=== PATIENT | female | born 1965 | race Caucasian/White ===

== ENCOUNTER 2019-06-28 15:43 | Inpatient (IN) ==
[2019-06-28] MEDS ORDERED: SODIUM CHLORIDE 0.9% 1000ML 1,000 ML IV ONE (15:52)
[2019-06-28 16:33] LABS: Basophils # (auto) 0.05 K/uL (0-0.2); Basophils % (auto) 0.5 %; Eosinophils # (auto) 0.05 K/uL (0-0.5); Eosinophils % (auto) 0.5 %; Hematocrit (blood only) 38.5 % (37-47); Hemoglobin 13.2 g/dL (12.0-16.0); Immature Granulocytes # (auto) 0.13 K/uL (0.00-0.02); Immature Granulocytes % (auto) 1.3 %; Lymphocytes # (auto) 1.73 K/uL (1.2-3.4); Lymphocytes % (auto) 17.3 %; Mean Corpuscular Hgb Conc 34.3 g/dL (32-36); Mean Corpuscular Volume 114.2 fL (80-100); Neutrophils # (auto) 7.25 K/uL (1.4-6.5); Neutrophils % (auto) 72.4 %; Nucleated RBC # (auto) 0.12 K/uL (0-0); Nucleated RBC % (auto) 1.2 %; Platelet Count 156 K/uL (130-400); RDW Coefficient of Variation 16.2 % (11.5-14.5); RDW Standard Deviation 65.8 fL (36.4-46.3); Red Blood Count 3.37 M/uL (4.2-5.4); White Blood Count 10.01 K/uL (4.8-10.8)
[2019-06-28 16:45] LABS: INR 1.9 (0.9-1.1); Partial Thromboplastin Ratio 0.9; Partial Thromboplastin Time 24.1 Seconds (21.0-31.0); Prothrombin Time 18.3 Seconds (9.0-12.0)
[2019-06-28 17:04] LABS: Alanine Aminotransferase 88 U/L (12-78); Albumin Level 2.9 gm/dl (3.4-5.0); Aspartate Aminotransferase 187 U/L (15-37); BUN Creatinine Ratio 2.1 (10-20); Blood Urea Nitrogen 2 mg/dl (7-18); Calcium 7.9 mg/dl (8.5-10.1); Carbon Dioxide 26 mmol/L (21-32); Chloride 88 mmol/L (98-107); Creatinine Clr Calc Pharmacy 72.1 ml/min; Est GFR (Non-African American) 72.5; Glucose 103 mg/dl (70-99); Magnesium 1.2 mg/dl (1.8-2.4); Potassium 2.7 mmol/L (3.5-5.1); Sodium 130 mmol/L (136-145)
[2019-06-28 17:05] LABS: Alkaline Phosphatase 462 U/L (45-117); Bilirubin,Total 18.7 mg/dl (0.2-1); Total Protein 6.5 gm/dl (6.4-8.2); Troponin I < 0.015 ng/ml (0-0.045)
[2019-06-28 17:07] LABS: Macrocytosis Present; Pappenheimer Bodies 2+; Polychromasia 1+
[2019-06-28 17:09] LABS: Appearance Urine Turbid (Clear); Bacteria Urine Automated Negative (Negative); Blood Urine Trace (Negative); Color Urine Orange; Epithelial Cell Urine Auto >30 /lpf (0-5); Glucose Urine UA Trace (Negative); Ketones Urine Negative (Negative); Leukocyte Esterase Urine 1+ (Negative); Nitrite Urine Positive (Negative); Protein Urine 1+ (Negative); Specific Gravity Urine 1.016 (1.000-1.030); Urobilinogen Urine Negative (Negative); WBC Urine Automated >30 /hpf (0-5); pH Urine 6.5 (4.5-7.5)
--- NOTE | 2019-06-28 17:14 | XRay Report ---
SINGLE VIEW CHEST CLINICAL HISTORY: Sepsis. FINDINGS: An AP, portable, upright chest radiograph is compared to study dated 10/12/2018. The examin ation is degraded by portable technique and patient rotation. The cardiomediastinal silhouette is u nremarkable. There is elevation of the right hemidiaphragm with associated atelectasis. The lungs and pleural spaces are otherwise clear. No pneumothorax is seen. The skeletal structures are osteopenic. The bony thorax is grossly intact. There are bilateral nipple piercings. IMPRESSION: No active disease in the chest. Electronically signed by: Carroll Molina M.D. 06/28/2019 5:13 PM
[2019-06-28] MEDS ORDERED: SODIUM CHLORIDE 0.9% 1000ML 1,000 ML IV SCH (17:15)
[2019-06-28 17:32] LABS: Bilirubin Direct 13.9 mg/dl (0-0.2)
[2019-06-28 17:40] LABS: Bilirubin Urine 3+ (Negative)
[2019-06-28 17:41] LABS: Ictotest Urine Positive (Negative)
[2019-06-28] MEDS: MAGNESIUM SULFATE / D5W 1 GM/100 ML BAG IV SCH ×2 (17:43→18:34)
[2019-06-28 18:18] LABS: Amphetamines+Metham, Urine Neg (Neg); Barbiturates, Urine Neg (Neg); Benzodiazepine, Urine Neg (Neg); Cocaine, Urine Neg (Neg); MDMA (Ecstacy), Urine Neg (Neg); Methadone, Urine Neg (Neg); Opiate, Urine Neg (Neg); Phencyclidine, Urine Neg (Neg)
--- NOTE | 2019-06-28 18:41 | History & Physical Report ---
Date of Service June 28, 2019 Assessment & Plan (1) Transaminitis: (2) Jaundice: This is a 53yo F with a PMH of tobacco use, history of heavy alcohol use, celiac disease and other medical problems listed below who presents with jaundice and abnormal lab work. -Viral prodrome the past few weeks with malaise,fatigue, chills and low grade fever, has been jaundiced since beginning of last week -History of heavy alcohol use but last drink 3 weeks ago -Initially hypotensive with BP 92/68 but improved to 121/78 with fluids; Afebrile. -Tbili 18.7, AST of 187, ALT of 88 and alk phos 462 -GB ultrasound hepatomegaly and severe hepatic steatosis. The gallbladder is distended, and the gallbladder wall is thickened and edematous. A sonographic Mejia's sign is reportedly absent. The gallbladder findings may simply be related to hepatocellular disease. Findings are equivocal for acute c holecystitis which is not excluded. Clinical correlation will be essential. Nuclear hepatobiliary scan could be considered for further assessment and to assess for cystic duct obstruction. An indeterminant linear echogenic structure is identified within the common bile duct. This is not consistent with choledocholithiasis. -KUB with non-obstructed bowel gas pattern. No radiodense foreign body is identified. -Discussed with GI, who recommend MRCP. Do not want CT abd/pelvis ordered at this time. Will see tomorrow. -Surgery consult for equivocal ultrasound findings of acute cholecystitis althou gh patient without nausea, vomiting or abd pain. Will see tomorrow. -Clear liquids, NPO after midnight (3) Lactic acidosis: POC lactic acid elevated at 4.14, repeat 2.73 with fluids -In setting of dehydration, transaminitis -Afebrile, no leukocytosis, no abdominal pain. Blood and urine cultures pending -Continue IV fluids -Will repeat this evening (4) Hypokalemia: Potassium initially 2.7 in setting of dehydration, poor nutrition -Denies GI losses -Replacing. Repeat BMP at 2100 (5) Hypomagnesemia: Initial Mg 1.2 -Replaced in ED -Will repeat at 2100 (6) Abnormal urinalysis: UA with nitrites and 1+ leuk esterase -No urinary symptoms or leukocytosis -Urine culture ordered -Consider abx if patient develops symptoms or urine culture is positive (7) Prolonged QT interval: QTc prolonged at 537 ms -Avoid prolonging agents -Replacing electrolytes, monitor on telemetry DVT Ppx: SCDs for now Code status: FULL PCP: Vane Devlin Dispo: Admitted to telemetry. Plan to return home once medically stable. Patient seen in collaboration with Dr. Briggs. Please see addendum. History of Present Illness Chief Complaint: jaundice, abnormal labwork Primary Care Provider: Eryn Devlin, This is a 53yo F with a PMH of tobacco use, history of heavy alcohol use, celiac disease and other medical problems listed below who presents with jaundice and abnormal labwork. Patient endorses malaise for the past 2 months along with fatigue, chills and low grade fever for the past few weeks. Family noted jaundice early last week and patient was evaluated by PCP. Labwork from 06/24/19 revealed elevated tbili, AST, ALT and Alk phos. Anti-smooth muscle ab and Tylenol level negative. Acute hepatitis A, B and C negative. Ceruloplasmin elevated at 66. CT abd from 06/07/19 without acute abnormalities and presence of marked hepatic steatosis. In GI follow up today, patient was noted to be generally weak and hypotensive at 70/50. Still feeling fatigued with decreased appetite. 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 Still has gall bladder. Did have sinus drainage issues over the past few months and was "throwing up phlegm" but denies nausea, vomiting or abdominal pain. Completed courses of Clarithromycin, doxycycline and clindamycin in April and May. Started to take oregano oil supplements a few weeks ago and sinus symptoms have resolved. Also takes Milk Thistle. H/o heavy alcohol use over the past year (unable to quantify vodka amount in ounces or drinks). Denies Tylenol use. Smokes 1/2 ppd. Currently, patient feels weak and fatigued. BP initially 92/68 but improved to 121/78 with fluids. Potassium 2.7, Magnesium 1.2, POC lactate 4.14 but improved to 2.73 after fluids. Tbili 18.7, AST of 187, ALT of 88 and alk phos 462. UA with nitrites and 1+ leuk esterase. Blood and urine cultures pending. GB ultrasound pending. Denies any fever, chills, lightheadedness, chest pain, SOB, nausea, vomiting, abd pain, dysuria, hematuria, diarrhea, constipation, lm colored stools, melena or hematochezia. Allergies Allergy/AdvReac Type Severity Reaction Status Date / Time gluten Allergy Unknown Hives Verified 06/28/19 17:00 Penicillins Allergy Unknown Unknown Verified 06/28/19 17:00 prednisone AdvReac Intermediate Nausea,vomiting Verified 06/28/19 17:00 and diarrhea Home Medications Home Medications Medication Instructions Recorded Confirmed Type fluticasone propionate [Flonase 2 spray INTRANASAL DAILY PRN 06/28/19 06/28/19 History Allergy Relief] loratadine [Claritin] 10 mg PO DAILY PRN 06/28/19 06/28/19 History oregano oil 0 mg PO DAILY 06/28/19 06/28/19 History pyridoxine (vitamin B6) [Vitamin 100 mg PO DAILY 06/28/19 06/28/19 History B-6] Past Med/Surg History Medical History Colposcopy (Resolved 06/23/13) Alcohol use (Chronic) Celiac disease (Chronic) Tobacco use (Chronic) Surgical History H/O eye surgery (Chronic) Family History Other Prostate cancer Stroke Social History Preferred Language: Danish Communication Ability: Effective Mystery Shopper Required: No Beliefs That Will Affect Care: None marital status: Single Current Living Situation: Significant Other Current Living Situation Comment: [place] current occupational status: unemployed Feels Safe at Home: Yes Safety Concerns: Feels Safe At This Time Smoking Status: Current every day smoker Tobacco Type: cigarettes ; Do You Dip or Chew Tobacco: No ; Second Hand Exposure: No ; Tobacco Cessation Education Requested by Patient: No Hx Alcohol Use: No Hx Substance Use: No Review of Systems Review of Systems: At least ten systems reviewed and negative except as noted in the HPI. Physical Exam Physical Exam: General Appearance: WD/WN, no apparent distress, + jaundice Head: normocephalic, atraumatic Eyes: scleral icterus, PERRL, EOMI ENT: hearing grossly normal, pharynx normal (moist mucous membranes) Neck: supple, no JVD, no adenopathy Respiratory/Chest: lungs clear to auscultation. No wheezes, rales or rhonchi. No respiratory distress or accessory muscle use Cardiovascular: regular rate, rhythm, no murmur, normal peripheral pulses, no BLE edema Abdomen/GI: normal bowel sounds, soft with mild distention, non-tender to palpation Extremities/Musculoskelatal: normal inspection, no calf tenderness, normal capillary refill Neurologic/Psych: alert, normal mood/affect, oriented x 3 Skin: jaundiced, warm/dry Results & Data Vital Signs (Past 12 Hours) Vital Signs Temp Pulse Pulse Resp BP BP Pulse Ox 06/28/19 18:32 80 13 104/78 06/28/19 17:45 88 18 115/77 06/28/19 17:30 77 12 125/86 06/28/19 17:19 76 22 121/78 06/28/19 17:15 78 15 121/78 06/28/19 17:01 80 16 126/81 06/28/19 17:00 89 15 06/28/19 16:30 84 19 97 06/28/19 16:21 84 14 06/28/19 16:18 87 21 95/73 L 06/28/19 15:52 78 98 06/28/19 15:45 36.6 C 97 H 16 92/68 L 97 06/28/19 15:43 98 Laboratory Results Short CBC 06/28/19 Range/Units 16:26 WBC 10.01 (4.8-10.8) K/uL Hgb 13.2 (12.0-16.0) g/dL Hct 38.5 (37-47) % Plt Count 156 (130-400) K/uL BMP 06/28/19 16:26 Sodium 130 L Potassium 2.7 L Chloride 88 L Carbon Dioxide 26 BUN 2 L Creatinine 0.90 Glucose 103 H Calcium 7.9 L Cardiac Enzymes 06/28/19 Range/Units 16:26 Troponin I < 0.015 (0-0.045) ng/ml Liver Function 06/28/19 Range/Units 16:26 Total Bilirubin 18.7 H (0.2-1) mg/dl Direct Bilirubin 13.9 H (0-0.2) mg/dl AST 187 H (15-37) U/L ALT 88 H (12-78) U/L Alkaline Phosphatase 462 H (45-117) U/L Albumin 2.9 L (3.4-5.0) gm/dl Urine 06/28/19 Range/Units 16:26 Urine Color [place] Urine Appearance Turbid A (Clear) Urine pH 6.5 (4.5-7.5) Ur Specific [place] 1.016 (1.000-1.030) Urine Protein 1+ H (Negative) Urine Glucose (UA) Trace H (Negative) Diagnostic Findings CXR: IMPRESSION: No active disease in the chest. Gallbladder US: IMPRESSION: 1. Hepatomegaly and severe hepatic steatosis. 2. No shadowing gallstones are identified. 3. The gallbladder is distended, and the gallbladder wall is thickened and edematous. A sonographic Mjeia's sign is reportedly absent. The gallbladder findings may simply be related to hepatocellular disease. Findings are equivocal for acute cholecystitis which is not excluded. Clinical correlation will be essential. Nuclear hepatobiliary scan could be considered for further assessment and to assess for cystic duct obstruction. 4. An indeterminant linear echogenic structure is identified within the common bile duct. This is not consistent with choledocholithiasis. Correlate clinically for history of previous instrumentation. KUB XR: IMPRESSION: 1. No radiodense foreign body is identified. 2. Right-sided nephrolithiasis. 3. Non-obstructed bowel gas pattern. ECG Additional Comments: Normal sinus rhythm Possible Left atrial enlargement Cannot rule out Inferior infarct , age undetermined T wave abnormality, consider anterolateral ischemia Prolonged QT Abnormal ECG When compared with ECG of 12-OCT-2018 13:41, T wave inversion now evident in Inferior leads T wave inversion now evident in Anterolateral lead Supervising Physician Co-Signing Physician Notes Attending addendum The patient was seen and examined by me in the emergency room in presence of the She has been complaining of weakness and yellow coloration of the skin and eye for the last 3 to 4 weeks She was sent in from a GI office with a very low blood pressure and abnormal LFTs Denies any symptoms except your localization of the skin and eyes and extreme weakness Denies any fever and/or chills, any significant abdominal distention, nausea and/or vomiting or any pain On examination No distress at rest he does look very anxious and weak with the profound jaundice Blood pressure was around 90 to 100 systolic. 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
--- NOTE | 2019-06-28 18:58 | Ultrasound Report ---
ULTRASOUND RIGHT UPPER QUADRANT ABDOMEN CLINICAL HISTORY: Liver failure. COMPARISON STUDY: No priors. TECHNIQUE: Real-time, grayscale, and color flow sonography of the right upper quadrant of the abdomen was performed. Images are reviewed in the transverse and longitudinal planes. FINDINGS: Liver: The liver is enlarged, measuring over 20 cm in length. The liver demonstrates heterogeneously increased echotexture consistent with severe hepatic steatosis. Note that this degrades acoustic pene tration of the liver. There is no intrahepatic biliary ductal dilatation. The main portal vein is pat ent. Gallbladder: The gallbladder is distended. No shadowing gallstones are identified. The gallbladder wa ll is thickened and edematous, measuring up to 6 mm. No pericholecystic fluid is identified. A sonogr aphic Mejia's sign is reportedly absent. The common bile duct measures up to 0.7 cm in diameter. A l inear echogenic structure is suggested within the common bile duct. Pancreas: Visualized portions of the pancreatic head and body are normal in appearance. The splenic v ein is patent. Right kidney: Survey images of the right kidney demonstrate normal size and echotexture. There is no hydronephrosis. Ascites: None. IMPRESSION: 1. Hepatomegaly and severe hepatic steatosis. 2. No shadowing gallstones are identified. 3. The gallbladder is distended, and the gallbladder wall is thickened and edematous. A sonographic M urphy's sign is reportedly absent. The gallbladder findings may simply be related to hepatocellular d isease. Findings are equivocal for acute cholecystitis which is not excluded. Clinical correlation wi ll be essential. Nuclear hepatobiliary scan could be considered for further assessment and to assess for cystic duct obstruction. 4. An indeterminant linear echogenic structure is identified within the common bile duct. This is not consistent with choledocholithiasis. Correlate clinically for history of previous instrumentation. Electronically signed by: Carroll Molina M.D. 06/28/2019 6:56 PM
--- NOTE | 2019-06-28 19:22 | XRay Report ---
KUB CLINICAL HISTORY: Echogenic structure identified within the common bile duct. Foreign body assessment . FINDINGS: 2 AP supine abdominal radiograph is are correlated with abdominal ultrasound performed the same date 06/28/2019. There is a nonobstructed abdominal bowel gas pattern. No evidence of intraperito sena free air is seen on these supine views. No radiodense foreign body is identified. A 3 mm nonobst ructing calculus projects over the right kidney. Phleboliths are observed in the pelvis. The skeletal structures are osteopenic. Lumbosacral spondylosis is noted. IMPRESSION: 1. No radiodense foreign body is identified. 2. Right-sided nephrolithiasis. 3. Nonobstructed bowel gas pattern. Electronically signed by: Carroll Molina M.D. 06/28/2019 7:21 PM
[2019-06-28] MEDS: POTASSIUM CHLORIDE / WTR 10 MEQ/100 ML PLCT IV SCH ×2 (19:28→20:46)
--- NOTE | 2019-06-28 19:29 | Emergency Department Note ---
Entered by Jacque Candelaria acting as a scribe for History of Present Illness General Chief complaint: Hypotension Stated complaint: LOW BLOOD PRESSURE Time Seen by Provider: 06/28/19 15:49 Source: patient History of Present Illness Onset (ago): minute(s) (prior to arrival) Severity: severe (70/50) Pain Consistency: + other (episode) Quality: + other (hypotension) Associated symptoms: + denies other symptoms (abdominal pain, hematochezia, hematuria, melena, hemoptysis), + fever/chills (fevers) and + other (jaundice); no chest pain, no headaches and no shortness of breath The patient is a 53 year old female who presents to the Emergency Room with co mplaints of an episode of hypotension starting prior to arrival. The patient states that she was seen by her PCP because she noticed she was jaundice in color. She states that they took a bunch of blood work that showed her liver function was abnormal so they sent her to GI. She states that today when she went to her GI appointment they were going to direct admit her, but they noticed her blood pressure was very low and were concerned so they sent her to the ED. She notes that it was 70/50. The patient complains of low grade fevers. She notes that she used to drink vodka daily, but stopped 3 weeks ago. The patient denies abdominal pain, hematochezia, hematuria, melena, chest pain, shortness of breath, headache, and hemoptysis. Home Medications Home Medications Medication Instructions Recorded Confirmed Type fluticasone propionate [Flonase 2 spray INTRANASAL DAILY PRN 06/28/19 06/28/19 History Allergy Relief] loratadine [Claritin] 10 mg PO DAILY PRN 06/28/19 06/28/19 History oregano oil 0 mg PO DAILY 06/28/19 06/28/19 History pyridoxine (vitamin B6) [Vitamin 100 mg PO DAILY 06/28/19 06/28/19 History B-6] Allergies Allergy/AdvReac Type Severity Reaction Status Date / Time gluten Allergy Unknown Hives Verified 06/28/19 17:00 Penicillins Allergy Unknown Unknown Verified 06/28/19 17:00 prednisone AdvReac Intermediate Nausea,vomiting Verified 06/28/19 17:00 and diarrhea Past Med/Surg History Medical History Colposcopy (Resolved 06/23/13) Alcohol use (Chronic) Celiac disease (Chronic) Tobacco use (Chronic) Surgical History H/O eye surgery (Chronic) Family History Other Prostate cancer Stroke Social History Preferred Language: Guatemalan marital status: Single Current Living Situation: Significant Other current occupational status: unemployed Feels Safe at Home: Yes Smoking Status: Current every day smoker Hx Alcohol Use: Yes Alcohol type Comment: h/o heavy vodka intake, stopped drinking 3 weeks ago Hx Substance Use: No Review of Systems See HPI for pertinent positives & negatives. and A total of 10 systems reviewed and were otherwise negative Physical Exam Vital Signs Vital Signs - 24 hr 06/28/19 15:43 06/28/19 15:45 06/28/19 15:52 Temperature 36.6 C Temperature Source Oral Sepsis Recent Fever Within 48 Hours No Sepsis Action Taken by Nursing No Action Required Pulse Rate 97 H 78 Pulse Rate [Left Finger] Pulse Rate from SpO2 Sensor Pulse Rhythm Regular Pulse Rhythm [Left Finger] Pulse Strength [Left Finger] Respiratory Rate 16 Respiratory Effort / Characteristics Non-Labored Respiratory Depth Normal Respiratory Pattern Blood Pressure 92/68 L Blood Pressure [Left Arm] Blood Pressure Mean 76 Blood Pressure Mean [Left Arm] Blood Pressure Position [Left Arm] Pulse Oximetry 98 97 98 Oxygen Delivery Method Room Air Room Air Room Air 06/28/19 16:18 06/28/19 16:21 06/28/19 16:30 Temperature Temperature Source Sepsis Recent Fever Within 48 Hours Sepsis Action Taken by Nursing Pulse Rate 87 84 84 Pulse Rate [Left Finger] Pulse Rate from SpO2 Sensor 82 Pulse Rhythm Pulse Rhythm [Left Finger] Pulse Strength [Left Finger] Respiratory Rate 21 14 19 Respiratory Effort / Characteristics Respiratory Depth Respiratory Pattern Blood Pressure 95/73 L Blood Pressure [Left Arm] Blood Pressure Mean 80 Blood Pressure Mean [Left Arm] Blood Pressure Position [Left Arm] Pulse Oximetry 97 Oxygen Delivery Method 06/28/19 17:00 06/28/19 17:01 06/28/19 17:15 Temperature Temperature Source Sepsis Recent Fever Within 48 Hours Sepsis Action Taken by Nursing Pulse Rate 89 80 78 Pulse Rate [Left Finger] Pulse Rate from SpO2 Sensor Pulse Rhythm Pulse Rhythm [Left Finger] Pulse Strength [Left Finger] Respiratory Rate 15 16 15 Respiratory Effort / Characteristics Respiratory Depth Respiratory Pattern Blood Pressure 126/81 121/78 Blood Pressure [Left Arm] Blood Pressure Mean 96 92 Blood Pressure Mean [Left Arm] Blood Pressure Position [Left Arm] Pulse Oximetry Oxygen Delivery Method 06/28/19 17:19 06/28/19 17:30 06/28/19 17:45 Temperature Temperature Source Sepsis Recent Fever Within 48 Hours Sepsis Action Taken by Nursing Pulse Rate 77 88 Pulse Rate [Left Finger] 76 Pulse Rate from SpO2 Sensor Pulse Rhythm Pulse Rhythm [Left Finger] Regular Pulse Strength [Left Finger] Normal Respiratory Rate 22 12 18 Respiratory Effort / Characteristics Non-Labored Respiratory Depth Normal Respiratory Pattern Regular Blood Pressure 125/86 115/77 Blood Pressure [Left Arm] 121/78 Blood Pressure Mean 99 89 Blood Pressure Mean [Left Arm] 92 Blood Pressure Position [Left Arm] Sitting Pulse Oximetry Oxygen Delivery Method 06/28/19 18:32 Temperature Temperature Source Sepsis Recent Fever Within 48 Hours Sepsis Action Taken by Nursing Pulse Rate 80 Pulse Rate [Left Finger] Pulse Rate from SpO2 Sensor Pulse Rhythm Pulse Rhythm [Left Finger] Pulse Strength [Left Finger] Respiratory Rate 13 Respiratory Effort / Characteristics Respiratory Depth Respiratory Pattern Blood Pressure 104/78 Blood Pressure [Left Arm] Blood Pressure Mean 86 Blood Pressure Mean [Left Arm] Blood Pressure Position [Left Arm] Pulse Oximetry Oxygen Delivery Method GENERAL: She is oriented to person, place, and time. She appears well-developed and jaundiced. She does not appear distressed. HENT: Exam performed. - Head: Normocephalic and atraumatic. - Right Ear: External ear normal. No mastoid tenderness. - Left Ear: External ear normal. No mastoid tenderness. - Mouth/Throat: The oropharynx is clear and moist. No trismus in the jaw. No dental abscesses or uvula swelling. No oropharyngeal exudate or tonsillar ab scesses. EYES: Conjunctivae and EOM are normal. Pupils are equal, round, and reactive to light. Right eye exhibits no discharge. Left eye exhibits no discharge. Scleral icterus present. NECK: Normal range of motion. Neck supple. No JVD present. No spinous process tenderness present. No carotid bruit present. No rigidity. No tracheal deviation and normal range of motion present. No Brudzinski's sign and no Kernig's sign noted. CV: Normal rate, regular rhythm, normal heart sounds and intact distal pulses. There is no peripheral edema. Palpable radial pulses bue. PULM/CHEST: Effort normal and breath sounds normal. No respiratory distress. No stridor. She has no wheezes. She has no rales. Chest Wall: She exhibits no tenderness. ABD: The abdomen is soft. Bowel sounds are normal. She has mild distension. Hepatomegaly. There is no tenderness to palpation of the abdomen. There is no rebound, no guarding, no Mejia's sign and no tenderness at McBurney's point. Rovsig negative MUSC/SKEL: Normal range of motion. There is no peripheral edema, tenderness or deformity. LYMPH: No cervical adenopathy. NEURO: She is alert and oriented to person, place, and time. She has normal strength. No cranial nerve deficit or sensory deficit. Coordination and gait normal. GCS eye subscore is 4. GCS verbal subscore is 5. GCS motor subscore is 6. cerbellar tests wnl. SKIN: Skin is warm and dry. She is not diaphoretic. She is jaundiced. PSYCH: She has a normal mood and affect. Her behavior is normal. Judgment and thought content normal. Course 1549: Past medical records reviewed. The patient was evaluated in room B2. A complete history and physical exam was performed. Patient was hypotensive on arrival in the emergency department. Large-bore IV access was obtained and fluid resuscitation was immediately started. I performed a bedside ultrasound at this time which showed no large pocket of ascites. 1729: Vital signs stable after 1.5L of fluid. Labs show an INR of 1.9. Hemoglobin of 13.2 with an MCV of 114.2. Potassium is 2.7. Magnesium is 1.2. Lactic acid is 4.14. AST is 187. ALT is 88. Alkaline phosphatase is 462. It is unclear if the patient's lactic acidemia is due to infection or due to chronic liver disease. Blood cultures have been sent. I discussed the patient's case with Brooklyn Alejandre PA-C -[facility] [facility]. She will admit the patient to Dr. Briggs. I discussed the possibility of sending the patient to the ICU given the elevated lactic acid, hypokalemia, and hypomagnesemia, but she will discuss the case with Dr. Briggs before making that decision. I spoke with Dr. Yao with regards to the patient. He states to obtain an ultrasound of the RUQ given the patient's lab findings and will be on consult during the admission. 1747: The patient's repeat lactic acid is 2.73 after approximately 1.5 liters normal saline. Urinalysis is contaminated sample. Given that the patient'slactic acid is trending down, Brooklyn Alejandre believes that the patient can be admitted to the tele and not the ICU. 1857: I received a call from Dr. Molina-Radiology. He state that the patient's ultrasound is concerning for hepatocellular carcinoma vs cholecystitis. He states that the patient also has an echogenic structure in the RUQ concerning for a biliary stent. On reassessment, the patient has no pain on palpation of the RUQ. She reports no history of receiving biliary stents. Dr. Molina is requesting a KUB of the abdomen be done. I discussed the findings with the admitting hospitalist team who is requesting that I speak with general surgery to have them consult. 1904: I discussed the patient's case with Dr. Mata-General Surgery. He agreed to be on consult. Consultations Consultation #1: I discussed the patient's case with Brooklyn Alejandre PA-C - [facility] Hospitalist. She will admit the patient to Dr. Briggs. I discussed the possibility of sending the patient to the ICU given the elevated lactic acid, hypokalemia, and hypomagnesemia, but she will discuss the case with Dr. Briggs before making that decision. Time: 17:21 Consultation #2: I spoke with Dr. Yao with regards to the patient. He states to obtain an ultrasound of the RUQ given the patient's lab findings and will be on consult during the admission. Time: 17:24 Consultation #3: The patient's repeat lactic acid is 2.73. Given that the patient'slactic acid is trending down, Brooklyn Alejandre believes that the patient can be admitted to the tele and not the ICU. Time: 17:47 Additional Consultation(s): 1857: I received a call from Dr. Molina-Radiology. He state that the patient's ultrasound is concerning for hepatocellular carcinoma vs cholecystitis. He states that the patient also has an echogenic st ructure in the RUQ concerning for a biliary stent. Dr. Molina is requesting a KUB of the abdomen be done. 1904: I discussed the patient's case with Dr. Mata-General Surgery. He agreed to be on consult. Administered Medications Sodium Chloride (Nss 1000ml) 1,000 mls @ 125 mls/hr IV .Q8H ZITA Stop: 07/28/19 17:14 Last Admin: 06/28/19 17:00 Dose: 125 mls/hr Documented by: [id number] Magnesium Sulfate/Dextrose (Magnesium Sulfate / D5w) 1 gm in 100 mls @ 100 mls/hr IV Q1H ZITA Stop: 06/28/19 19:29 Last Admin: 06/28/19 18:34 Dose: 100 mls/hr Documented by: [id number] Infusion: 06/28/19 18:34 Dose: 100 mls/hr Documented by: [id number] Admin: 06/28/19 17:43 Dose: 100 mls/hr Documented by: [id number] Discontinued Medications Sodium Chloride (Nss 1000ml) 1,000 mls @ 999 mls/hr IV .Q1H1M ONE Stop: 06/28/19 16:52 Last Admin: 06/28/19 17:04 Dose: 999 mls/hr Documented by: [id number] Medical Decision Making Medical Records Attestation: I reviewed the patient's medical records. Home Medications Current Medication List: was personally reviewed by me Laboratory Data Attestation: I reviewed the patient's lab results. Result diagrams: 06/28/19 16:26 06/28/19 16:26 Lab Results 06/28/19 06/28/19 06/28/19 Range/Units 16:26 16:26 16:26 WBC 10.01 (4.8-10.8) K/uL RBC 3.37 L (4.2-5.4) M/uL Hgb 13.2 (12.0-16.0) g/dL Hct 38.5 (37-47) % MCV 114.2 H (80-100) fL MCH 39.2 H (25-34) pg MCHC 34.3 (32-36) g/dL RDW Std Deviation 65.8 H (36.4-46.3) fL RDW Coeff of Car 16.2 H (11.5-14.5) % Plt Count 156 (130-400) K/uL MPV 14.0 H (7.4-10.4) fL Immature Gran % (Auto) 1.3 % Neut % (Auto) 72.4 % Lymph % (Auto) 17.3 % [place] % (Auto) 8.0 % Eos % (Auto) 0.5 % Baso % (Auto) 0.5 % Immature Gran # (Auto) 0.13 H (0.00-0.02) K/uL Neut # (Auto) 7.25 H (1.4-6.5) K/uL Lymph # (Auto) 1.73 (1.2-3.4) K/uL [place] # (Auto) 0.80 H (0.11-0.59) K/uL Eos # (Auto) 0.05 (0-0.5) K/uL Baso # (Auto) 0.05 (0-0.2) K/uL Absolute Nucleated RBC 0.12 H (0-0) K/uL Nucleated RBC % (auto) 1.2 % Polychromasia 1+ Macrocytosis Present Pappenheimer Bodies 2+ PT 18.3 H (9.0-12.0) Seconds INR 1.9 H (0.9-1.1) APTT 24.1 (21.0-31.0) Seconds PTT Ratio 0.9 Sodium 130 L (136-145) mmol/L Potassium 2.7 L (3.5-5.1) mmol/L Chloride 88 L (98-107) mmol/L Carbon Dioxide 26 (21-32) mmol/L Anion Gap 16.0 H (3-11) BUN 2 L (7-18) mg/dl Creatinine 0.90 (0.6-1.2) mg/dl Est Cr Clr Drug Dosing 72.1 ml/min Est GFR ( Amer) 84.0 Est GFR (Non-Af Amer) 72.5 BUN/Creatinine Ratio 2.1 L (10-20) Glucose 103 H (70-99) mg/dl POC Lactic Acid Horacio (0.90-1.70) mmol/L Calcium 7.9 L (8.5-10.1) mg/dl Magnesium 1.2 L (1.8-2.4) mg/dl Total Bilirubin 18.7 H (0.2-1) mg/dl Direct Bilirubin 13.9 H (0-0.2) mg/dl AST 187 H (15-37) U/L ALT 88 H (12-78) U/L Alkaline Phosphatase 462 H (45-117) U/L Troponin I < 0.015 (0-0.045) ng/ml Total Protein 6.5 (6.4-8.2) gm/dl Albumin 2.9 L (3.4-5.0) gm/dl Lipase 134 (73-393) U/L Urine Color Urine Appearance (Clear) Urine pH (4.5-7.5) Ur Specific [place] (1.000-1.030) Urine Protein (Negative) Urine Glucose (UA) (Negative) Urine Ketones (Negative) Urine Blood (Negative) Urine Nitrite (Negative) Urine Bilirubin (Negative) Urine Urobilinogen (Negative) Ur Leukocyte Esterase (Negative) Urine WBC (Auto) (0-5) /hpf Urine RBC (Auto) (0-4) /hpf U Hyaline Cast (Auto) U Epithel Cells (Auto) (0-5) /lpf Urine Bacteria (Auto) (Negative) Ur Renal Epithelial Cell (0-5) /lpf Urine Crystals Urine Opiates Screen (Neg) Ur Methadone, Qual (Neg) Urine Barbiturates (Neg) Ur Phencyclidine (PCP) (Neg) U Amphetamin/Meth Scrn (Neg) MDMA (Ecstasy) Screen (Neg) U Benzodiazepines Scrn (Neg) Ur Cocaine Metabolite (Neg) U Marijuana (THC) Screen (Neg) 06/28/19 06/28/19 06/28/19 Range/Units 16:26 16:34 17:00 WBC (4.8-10.8) K/uL RBC (4.2-5.4) M/uL Hgb (12.0-16.0) g/dL Hct (37-47) % MCV (80-100) fL MCH (25-34) pg MCHC (32-36) g/dL RDW Std Deviation (36.4-46.3) fL RDW Coeff of Car (11.5-14.5) % Plt Count (130-400) K/uL MPV (7.4-10.4) fL Immature Gran % (Auto) % Neut % (Auto) % Lymph % (Auto) % [place] % (Auto) % Eos % (Auto) % Baso % (Auto) % Immature Gran # (Auto) (0.00-0.02) K/uL Neut # (Auto) (1.4-6.5) K/uL Lymph # (Auto) (1.2-3.4) K/uL [place] # (Auto) (0.11-0.59) K/uL Eos # (Auto) (0-0.5) K/uL Baso # (Auto) (0-0.2) K/uL Absolute Nucleated RBC (0-0) K/uL Nucleated RBC % (auto) % Polychromasia Macrocytosis Pappenheimer Bodies PT (9.0-12.0) Seconds INR (0.9-1.1) APTT (21.0-31.0) Seconds PTT Ratio Sodium (136-145) mmol/L Potassium (3.5-5.1) mmol/L Chloride (98-107) mmol/L Carbon Dioxide (21-32) mmol/L Anion Gap (3-11) BUN (7-18) mg/dl Creatinine (0.6-1.2) mg/dl Est Cr Clr Drug Dosing ml/min Est GFR ( Amer) Est GFR (Non-Af Amer) BUN/Creatinine Ratio (10-20) Glucose (70-99) mg/dl POC Lactic Acid Horacio 4.14 H (0.90-1.70) mmol/L Calcium (8.5-10.1) mg/dl Magnesium (1.8-2.4) mg/dl Total Bilirubin (0.2-1) mg/dl Direct Bilirubin (0-0.2) mg/dl AST (15-37) U/L ALT (12-78) U/L Alkaline Phosphatase (45-117) U/L Troponin I (0-0.045) ng/ml Total Protein (6.4-8.2) gm/dl Albumin (3.4-5.0) gm/dl Lipase (73-393) U/L Urine Color [place] Urine Appearance Turbid A (Clear) Urine pH 6.5 (4.5-7.5) Ur Specific [place] 1.016 (1.000-1.030) Urine Protein 1+ H (Negative) Urine Glucose (UA) Trace H (Negative) Urine Ketones Negative (Negative) Urine Blood Trace H (Negative) Urine Nitrite Positive A (Negative) Urine Bilirubin 3+ H (Negative) Urine Urobilinogen Negative (Negative) Ur Leukocyte Esterase 1+ H (Negative) Urine WBC (Auto) >30 H (0-5) /hpf Urine RBC (Auto) 10-30 H (0-4) /hpf U Hyaline Cast (Auto) Not Reportable U Epithel Cells (Auto) >30 H (0-5) /lpf Urine Bacteria (Auto) Negative (Negative) Ur Renal Epithelial Cell 10-20 H (0-5) /lpf Urine Crystals Not Reportable Urine Opiates Screen Neg (Neg) Ur Methadone, Qual Neg (Neg) Urine Barbiturates Neg (Neg) Ur Phencyclidine (PCP) Neg (Neg) U Amphetamin/Meth Scrn Neg (Neg) MDMA (Ecstasy) Screen Neg (Neg) U Benzodiazepines Scrn Neg (Neg) Ur Cocaine Metabolite Neg (Neg) U Marijuana (THC) Screen Neg (Neg) 06/28/19 Range/Units 17:43 WBC (4.8-10.8) K/uL RBC (4.2-5.4) M/uL Hgb (12.0-16.0) g/dL Hct (37-47) % MCV (80-100) fL MCH (25-34) pg MCHC (32-36) g/dL RDW Std Deviation (36.4-46.3) fL RDW Coeff of Car (11.5-14.5) % Plt Count (130-400) K/uL MPV (7.4-10.4) fL Immature Gran % (Auto) % Neut % (Auto) % Lymph % (Auto) % [place] % (Auto) % Eos % (Auto) % Baso % (Auto) % Immature Gran # (Auto) (0.00-0.02) K/uL Neut # (Auto) (1.4-6.5) K/uL Lymph # (Auto) (1.2-3.4) K/uL [place] # (Auto) (0.11-0.59) K/uL Eos # (Auto) (0-0.5) K/uL Baso # (Auto) (0-0.2) K/uL Absolute Nucleated RBC (0-0) K/uL Nucleated RBC % (auto) % Polychromasia Macrocytosis Pappenheimer Bodies PT (9.0-12.0) Seconds INR (0.9-1.1) APTT (21.0-31.0) Seconds PTT Ratio Sodium (136-145) mmol/L Potassium (3.5-5.1) mmol/L Chloride (98-107) mmol/L Carbon Dioxide (21-32) mmol/L Anion Gap (3-11) BUN (7-18) mg/dl Creatinine (0.6-1.2) mg/dl Est Cr Clr Drug Dosing ml/min Est GFR ( Amer) Est GFR (Non-Af Amer) BUN/Creatinine Ratio (10-20) Glucose (70-99) mg/dl POC Lactic Acid Horacio 2.73 H (0.90-1.70) mmol/L Calcium (8.5-10.1) mg/dl Magnesium (1.8-2.4) mg/dl Total Bilirubin (0.2-1) mg/dl Direct Bilirubin (0-0.2) mg/dl AST (15-37) U/L ALT (12-78) U/L Alkaline Phosphatase (45-117) U/L Troponin I (0-0.045) ng/ml Total Protein (6.4-8.2) gm/dl Albumin (3.4-5.0) gm/dl Lipase (73-393) U/L Urine Color Urine Appearance (Clear) Urine pH (4.5-7.5) Ur Specific [place] (1.000-1.030) Urine Protein (Negative) Urine Glucose (UA) (Negative) Urine Ketones (Negative) Urine Blood (Negative) Urine Nitrite (Negative) Urine Bilirubin (Negative) Urine Urobilinogen (Negative) Ur Leukocyte Esterase (Negative) Urine WBC (Auto) (0-5) /hpf Urine RBC (Auto) (0-4) /hpf U Hyaline Cast (Auto) U Epithel Cells (Auto) (0-5) /lpf Urine Bacteria (Auto) (Negative) Ur Renal Epithelial Cell (0-5) /lpf Urine Crystals Urine Opiates Screen (Neg) Ur Methadone, Qual (Neg) Urine Barbiturates (Neg) Ur Phencyclidine (PCP) (Neg) U Amphetamin/Meth Scrn (Neg) MDMA (Ecstasy) Screen (Neg) U Benzodiazepines Scrn (Neg) Ur Cocaine Metabolite (Neg) U Marijuana (THC) Screen (Neg) Imaging Data Radiologist's Impression: Radiology results as stated below per my review and the radiologist's interpretation: SINGLE VIEW CHEST CLINICAL HISTORY: Sepsis. FINDINGS: An AP, portable, upright chest radiograph is compared to study dated 10/12/2018. The examination is degraded by portable technique and patient rotation. The cardiomediastinal silhouette is unremarkable. There is elevation of the right hemidiaphragm with associated atelectasis. The lungs and pleural spaces are otherwise clear. No pneumothorax is seen. The skeletal structures are osteopenic. The bony thorax is grossly intact. There are bilateral nipple piercings. IMPRESSION: No active disease in the chest. Electronically signed by: Carroll Molina M.D. 06/28/2019 5:13 PM ULTRASOUND RIGHT UPPER QUADRANT ABDOMEN CLINICAL HISTORY: Liver failure. COMPARISON STUDY: No priors. TECHNIQUE: Real-time, grayscale, and color flow sonography of the right upper quadrant of the abdomen was performed. Images are reviewed in the transverse and longitudinal planes. FINDINGS: Liver: The liver is enlarged, measuring over 20 cm in length. The liver demonstrates heterogeneously increased echotexture consistent with severe hepatic steatosis. Note that this degrades acoustic penetration of the liver. There is no intrahepatic biliary ductal dilatation. The main portal vein is patent. Gallbladder: The gallbladder is distended. No shadowing gallstones are identified. The gallbladder wall is thickened and edematous, measuring up to 6 mm. No pericholecystic fluid is identified. A sonographic Mejia's sign is reportedly absent. The common bile duct measures up to 0.7 cm in diameter. A linear echogenic structure is suggested within the common bile duct. Pancreas: Visualized portions of the pancreatic head and body are normal in appearance. The splenic vein is patent. Right kidney: Survey images of the right kidney demonstrate normal size and echotexture. There is no hydronephrosis. Ascites: None. IMPRESSION: 1. Hepatomegaly and severe hepatic steatosis. 2. No shadowing gallstones are identified. 3. The gallbladder is distended, and the gallbladder wall is thickened and edematous. A sonographic Mejia's sign is reportedly absent. The gallbladder findings may simply be related to hepatocellular disease. Findings are equivocal for acute cholecystitis which is not excluded. Clinical correlation will be essential. Nuclear hepatobiliary scan could be considered for further assessment and to assess for cystic duct obstruction. 4. An indeterminant linear echogenic structure is identified within the common bile duct. This is not consistent with choledocholithiasis. Correlate clinically for history of previous instrumentation. Electronically signed by: Carroll Molina M.D. 06/28/2019 6:56 PM KUB CLINICAL HISTORY: Echogenic structure identified within the common bile duct. Foreign body assessment. FINDINGS: 2 AP supine abdominal radiograph is are correlated with abdominal ult rasound performed the same date 06/28/2019. There is a nonobstructed abdominal bowel gas pattern. No evidence of intraperitoneal free air is seen on these supine views. No radiodense foreign body is identified. A 3 mm nonobstructing calculus projects over the right kidney. Phleboliths are observed in the pelvis. The skeletal structures are osteopenic. Lumbosacral spondylosis is noted. IMPRESSION: 1. No radiodense foreign body is identified. 2. Right-sided nephrolithiasis. 3. Nonobstructed bowel gas pattern. Electronically signed by: Carroll Molina M.D. 06/28/2019 7:21 PM ECG Data Attestation: I personally reviewed and interpreted this ECG as follows: Indication: other (arrhythmia) Rate (beats per minute): 74 Rhythm: sinus with SA Findings: + other (NC and QRS intervals are within normal limits) and + prolonged QT (at 537); no ST depression and no ST elevation Blood Pressure Blood Pressure Findings: Low blood pressure Blood Pressure Disposition: further management by hospitalist BABAR Narrative 1549: Past medical records reviewed. The patient was evaluated in room B2. A complete history and physical exam was performed. Patient was hypotensive on arrival in the emergency department. Large-bore IV access was obtained and fluid resuscitation was immediately started. I performed a bedside ultrasound at this time which showed no large pocket of ascites. 1729: Vital signs stable after 1.5L of fluid. Labs show an INR of 1.9. Hemoglobin of 13.2 with an MCV of 114.2. Potassium is 2.7. Magnesium is 1.2. Lactic acid is 4.14. AST is 187. ALT is 88. Alkaline phosphatase is 462. It is unclear if the patient's lactic acidemia is due to infection or due to chronic liver disease. Blood cultures have been sent. I discussed the patient's case with Brooklyn Alejandre PA-C -[facility] Hospitalist. She will admit the patient to Dr. Briggs. I discussed the possibility of sending the patient to the ICU given the elevated lactic acid, hypokalemia, and hypomagnesemia, but she will discuss the case with Dr. Briggs before making that decision. I spoke with Dr. Yao with regards to the patient. He states to obtain an ultrasound of the RUQ given the patient's lab findings and will be on consult during the admission. 1747: The patient's repeat lactic acid is 2.73 after approximately 1.5 liters normal saline. Urinalysis is contaminated sample. Given that the patient'slactic acid is trending down, [place] Alejandre believes that the patient can be admitted to the tele and not the ICU. 1858: I received a call from Dr. Molina-Radiology. He state that the patient's ultrasound is concerning for hepatocellular carcinoma vs cholecystitis. He states that the patient also has an echogenic structure in the RUQ concerning for a biliary stent. On reassessment, the patient has no pain on palpation of the RUQ. She reports no history of receiving biliary stents. Dr. Molina is requesting a KUB of the abdomen be done. I discussed the findings with the admitting hospitalist team who is requesting that I speak with general surgery to have them consult. 190: I discussed the patient's case with Dr. Mata-General Surgery. He agreed to be on consult. Impression & Plan Jaundice, Hypokalemia, Hypomagnesemia, Liver failure, Lactic acidemia, Alcoholism, chronic, Prolonged QT interval Critical Care Time Critical Care Time: Yes Total Critical Care Time: 48 I have personally spent 48 minutes of critical care time in the direct management of this patient. This includes bedside care, interpretation of diagnostic studies, and testing, discussion with consultants, patient, and family members, and other required patient management activities. This 48 minutes is in excess of all separately billable procedures. Discharge Plan Visit Data Chief Complaint: Hypotension Stated Complaint: LOW BLOOD PRESSURE ED Provider: Juan Mckeon Discharge Problem: Jaundice, Hypokalemia, Hypomagnesemia, Liver failure, Lactic acidemia, Alcoholism, chronic, Prolonged QT interval Patient Disposition: Being Evaluated by Hospitalist Forms Stand Alone Forms: My [facility] Prescriptions Prescriptions: No Action pyridoxine (vitamin B6) [Vitamin B-6] 100 mg Tablet 100 mg PO DAILY RF: 0 fluticasone propionate [Flonase Allergy Relief] 50 mcg/actuation [place], Suspension 2 spray INTRANASAL DAILY PRN (Reason: Allergy Symptoms) RF: 0 loratadine [Claritin] 10 mg Tablet 10 mg PO DAILY PRN (Reason: Allergy Symptoms) RF: 0 oregano oil 1,500 mg Capsule PO DAILY RF: 0 Referrals Referrals: Eryn Devlin DO [Primary Care Provider] - Discharge Problem: Liver failure Qualifiers: Liver failure chronicity: unspecified chronicity Hepatic coma status: without hepatic coma Qualified Code(s): K72.90 - Hepatic failure, unspecified without coma The scribe's documentation has been prepared under my direction and personally reviewed by me in its entirety. I confirm that the note above accurately reflects all work, treatment, procedures, and medical decision making performed by me.
[2019-06-28] MEDS ORDERED: NICOTINE 21 MG/24 HR TDSY TD ONE (20:19)
[2019-06-28] MEDS ORDERED: FLUTICASONE PROPIONATE NA SPR 16 GM BTL NAE PRN (23:00)
[2019-06-28] MEDS ORDERED: POTASSIUM CHLORIDE 40 MEQ in SODIUM CHLORIDE 0.9% 1000ML 1,000 ML IV SCH (23:00)
[2019-06-28 23:49] LABS: BUN Creatinine Ratio 2.6 (10-20); Calcium 7.1 mg/dl (8.5-10.1); Creatinine Clr Calc Pharmacy 90.1 ml/min; Est GFR (Non-African American) 94.9; Magnesium 1.9 mg/dl (1.8-2.4); Potassium 2.5 mmol/L (3.5-5.1)
[2019-06-28] MEDS ORDERED: POTASSIUM CHLORIDE 20 MEQ TABCR PO STA (23:59)
[2019-06-29] MEDS: POTASSIUM CHLORIDE / WTR 10 MEQ/100 ML PLCT IV SCH ×4 (02:22→07:30)
[2019-06-29 06:41] LABS: Hematocrit (blood only) 30.8 % (37-47); Hemoglobin 10.6 g/dL (12.0-16.0); Mean Corpuscular Hgb Conc 34.4 g/dL (32-36); Mean Corpuscular Volume 112.8 fL (80-100); Mean Platelet Volume 13.3 fL (7.4-10.4); Nucleated RBC # (auto) 0.09 K/uL (0-0); Platelet Count 166 K/uL (130-400); RDW Coefficient of Variation 16.2 % (11.5-14.5); RDW Standard Deviation 65.3 fL (36.4-46.3); Red Blood Count 2.73 M/uL (4.2-5.4); White Blood Count 8.91 K/uL (4.8-10.8)
[2019-06-29 06:49] LABS: INR 1.6 (0.9-1.1); Prothrombin Time 15.9 Seconds (9.0-12.0)
--- NOTE | 2019-06-29 06:56 | Magnetic Resonance Report ---
MR MRCP CLINICAL HISTORY: obstructive jaundice abdominal pain, abnormal ultrasound. COMPARISON STUDY: Biliary ultrasound dated 06/28/2019 FINDINGS: There is hepatic steatosis. The gallbladder is mildly distended. There is pericholecystic fluid present. No gallstones are visualized. There is a subtle linear filling defect within the common bile duct corresponding to the ultrasound f indings. This is not felt to represent a calculus. There is no ductal dilatation. Pancreatic duct is nondilated. There is mild perinephric fluid. There is mild peripancreatic fluid. There is mild retroperitoneal fl uid present. There is mild periportal fluid. Correlation with pancreatic enzymes is recommended. IMPRESSION: 1. Mildly distended gallbladder with borderline gallbladder wall thickening and pericholecystic fluid . No calculi identified 2. Small amounts of peripancreatic retroperitoneal and periportal fluid. Correlation with pancreatic enzymes is recommended 3. No evidence of biliary or pancreatic ductal dilatation 4. Subtle linear filling defect within the common bile duct. This is of uncertain significance. This is not felt to represent a calculus. 5. Hepatic steatosis Electronically signed by: Bi Hebert M.D. 06/29/2019 6:54 AM
[2019-06-29 07:16] LABS: Albumin Level 2.1 gm/dl (3.4-5.0); BUN Creatinine Ratio 2.1 (10-20); Calcium 7.2 mg/dl (8.5-10.1); Creatinine Clr Calc Pharmacy 113.8 ml/min; Est GFR (African American) 121.8; Est GFR (Non-African American) 105.1; Potassium 3.3 mmol/L (3.5-5.1)
[2019-06-29 07:19] LABS: Albumin Globulin Ratio 0.8 (0.9-2); Bilirubin,Total 14.4 mg/dl (0.2-1); Globulin 2.6 gm/dl (2.5-4.0); Total Protein 4.7 gm/dl (6.4-8.2)
[2019-06-29] MEDS ORDERED: NICOTINE 21 MG/24 HR TDSY TD SCH (09:00)
[2019-06-29] MEDS: D5NSS + 20MEQ KCL 20 MEQ/1,000 ML BAG IV SCH ×2 (09:06→18:43)
--- NOTE | 2019-06-29 10:19 | Gastrointestinal Consultation ---
Date of Consultation June 29, 2019 Assessment & Plan (1) Jaundice: 53 year old female with history of alcohol abuse, last drink over three weeks ago that presented to PCP initially with malaise/fatigue workup with markedly elevated LFT w/ max TBILI 18, INR 1.9 on 06/28/19. MRCP reviewed, ?l inear filling defect of CBD but no stones/sludge/mass/lesion. DDX discussed: alcoholic hepatitis vs viral hepatitis vs autoimmune hepatitis vs DILI vs less likely obstructive process given ABD US, MRCP and outside CT. If LFTs remain elevated, will need diagnostic EUS+/- ERCP given linear filling defect of CBD - Will add full serology - Repeat acute hep - ALVIN, AMA, ASMA - Repeat iron panel w/ ferritin - EBV IGM/IGG - CMV IGM/IGG - HSV IGM/IGG - Trend LFTs - Trend PT/INR - Strict ETOH cessation was recommended - No tylenol products - DF 46 --> 32 - Not a current candidate for steroids ? UTI - Will need blood culture, urine culture, chest XR before reconsideration - Can consider NAC per protcol GI will follow. In the event of upward trending INR or acute mental status changes pt will need to be evaluated at a tertiary care center w/ inpatient liver team. No GI contraindication to diet however will defer to primary team given mention of surgical evaluation for cholecystitis. Present on Admission?: Yes Supervising Physician Co-Signing Physician Notes I have seen and examined the patient with MELISSA Ortiz. Admitted with elevated lft's from [facility]. Her clinical history sounds consistent with alcoholic hepatitis- would treat with NAC. Clinical exam signifcant for intact mental status x person/place time, abd sof nt nd +bs, scleral icterus Labs reviewed Imaging reviewed Alcoholic hepatitis- treat with nac, trend lft's, await infectious workup, mrcp finding at this time i think is not c/w a calculus- will trend lft's. Pt denies over fevers, chills. If no infection on blood culture- will consider treating with prednisolone. Additional viral work-up pending. History of Present Illness Reason for Consultation: elevated LFTs Requesting Physician: Elsie Attending Physician: Des Zimmerman MD History of Present Illness 53 year old female with history of ?celiac disease who presented through the ED for evaluation of abnormal labs, weakness/fatigue - GI asked to evaluate for elevated LFTs. Pt was seen and evaluated, chart reviewed. Pt endorses fatigue/exhaustion for about 2/3 weeks. Chart review suggests she had told other providers she had fever/chills/nausea/vomiting at the time but is adamantly denying this to me. She did notice jaundice/scleral icterus and dark urine about 1 week ago which prompted PCP evaluation w/ markedly elevated LFTs. Currently feels well - no abdominal pain, nausea/vomiting. Denies any confusion, mental fogging. No RUQ pain. No fever, chills, CP, SOB No history of IV drug use No recent tattoos/piercing Clindamycin in May No other new medications Does use Oregeno and Milk thistle OTC No tylenol No ETOH x 3 weeks Was using about 6 glasses of liquor daily x 1 year Does have history of EBV a few years ago TTG IGA: 7 Acute Hep: negative Tylenol level: negative ETOH level: negative Transferrin Sat: 95 Alpha 1: 235 (83-199) Ceruloplasmin 66 (18-53) TB: 0.6 --> 12.5 --> 18.7 --> 14.4 AST: 147 --> 184 --> 187 --> 124 ALT: 62 --> 119 --> 88 --> 62 ALKP: 157 --> 553 --> 462 --> 326 INR: 1 --> 1.9 --> 1.6 DF: 46 --> 32 MRCP 2019: Mildly distended gallbladder with borderline gallbladder wall thickening and pericholecystic fluid. No calculi identified Small amounts of peripancreatic retroperitoneal and periportal fluid. Correlation with pancreatic enzymes is recommendedNo evidence of biliary or pancreatic ductal dilatation Subtle linear filling defect within the common bile duct. This is of uncertain significance. This is not felt to represent a calculus.Hepatic steatosis ABD US 2019: Hepatomegaly and severe hepatic steatosis. No shadowing gallstones are identified. The gallbladder is distended, and the gallbladder wall is thickened and edematous. A sonographic Mejia's sign is reportedly absent. The gallbladder findings may simply be related to hepatocellular disease. Findings are equivocal for acute cholecystitis which is not excluded. Clinical correlation will be essential. Nuclear hepatobiliary scan could be considered for further assessment and to assess for cystic duct obstruction. An indeterminant linear echogenic structure is identified within the common bile duct. This is not consistent with choledocholithiasis. Correlate clinically for history of previous instrumentation. CT 2019: No evidence of acute pathology in the abdomen/pelvis. Marked hepatic steatosis. Allergies Allergy/AdvReac Type Severity Reaction Status Date / Time gluten Allergy Unknown Hives Verified 06/28/19 17:00 Penicillins Allergy Unknown Unknown Verified 06/28/19 17:00 prednisone AdvReac Intermediate Nausea,vomiting Verified 06/28/19 17:00 and diarrhea Home Medications Home Medications Medication Instructions Recorded Confirmed Type fluticasone propionate [Flonase 2 spray INTRANASAL DAILY PRN 06/28/19 06/28/19 History Allergy Relief] loratadine [Claritin] 10 mg PO DAILY PRN 06/28/19 06/28/19 History oregano oil 0 mg PO DAILY 06/28/19 06/28/19 History pyridoxine (vitamin B6) [Vitamin 100 mg PO DAILY 06/28/19 06/28/19 History B-6] Patient History Medical History Colposcopy (Resolved 06/23/13) Alcohol use (Chronic) Celiac disease (Chronic) Tobacco use (Chronic) Surgical History H/O eye surgery (Chronic) Family History Other Prostate cancer Stroke Social History Preferred Language: Portuguese Communication Ability: Effective Night Nurse Required: No Beliefs That Will Affect Care: None marital status: Single Current Living Situation: Significant Other Current Living Situation Comment: [place] current occupational status: unemployed Feels Safe at Home: Yes Safety Concerns: Feels Safe At This Time Smoking Status: Current every day smoker Tobacco Type: cigarettes ; Do You Dip or Chew Tobacco: No ; Second Hand Exposure: No ; Tobacco Cessation Education Requested by Patient: No Hx Alcohol Use: No Hx Substance Use: No Review of Systems Constitutional: + fatigue and + malaise; no fever and no chills Respiratory: no cough, no chest congestion and no dyspnea on exertion Cardiovascular: no chest pain, no chest pain at rest and no dyspnea Gastrointestinal: no abdominal pain, no belching, no bloating, no early satiety, no heartburn, no nausea, no vomiting, no coffee ground emesis, no hematemesis, no pain with swallowing, no dysphagia, no cramping, no excessive flatulence, no change in bowel habits, no change in stools, no constipation, no diarrhea/loose stools, no fecal incontinence, no constant urge to pass stools, no blood in stools and no melena Integumentary: + yellowing of the skin Physical Exam Constitutional: WD/WN, vitals as above + thin Eyes: PERRL + scleral icterus Neck: trachea midline Respiratory: normal respiratory effort, lungs clear to auscultation Cardiovascular: RRR, no murmur, no edema Gastrointestinal (Abdomen): normal bowel sounds, soft, nontender, no hepatosplenomegaly Skin: no rashes, warm and dry + jaundice Psychiatric: A+Ox3, euthymic affect Results & Data Vital Signs (Past 12 Hours) Vital Signs Temp Pulse Pulse Resp BP Pulse Ox 06/29/19 07:34 36.7 C 78 18 105/71 92 06/29/19 07:20 78 06/29/19 03:07 36.8 C 90 17 111/70 91 06/28/19 23:55 37.1 C 84 19 94/59 L 92 Laboratory Results 06/29/19 06/29/19 06/29/19 Range/Units 06:16 06:16 06:16 WBC (4.8-10.8) K/uL RBC (4.2-5.4) M/uL Hgb (12.0-16.0) g/dL Hct (37-47) % MCV (80-100) fL MCH (25-34) pg MCHC (32-36) g/dL RDW Std Deviation (36.4-46.3) fL RDW Coeff of Car (11.5-14.5) % Plt Count (130-400) K/uL MPV (7.4-10.4) fL Immature Gran % (Auto) % Neut % (Auto) % Lymph % (Auto) % [place] % (Auto) % Eos % (Auto) % Baso % (Auto) % Immature Gran # (Auto) (0.00-0.02) K/uL Neut # (Auto) (1.4-6.5) K/uL Lymph # (Auto) (1.2-3.4) K/uL [place] # (Auto) (0.11-0.59) K/uL Eos # (Auto) (0-0.5) K/uL Baso # (Auto) (0-0.2) K/uL Absolute Nucleated RBC (0-0) K/uL Nucleated RBC % (auto) % Polychromasia Macrocytosis Pappenheimer Bodies PT 15.9 H (9.0-12.0) Seconds INR 1.6 H (0.9-1.1) APTT (21.0-31.0) Seconds PTT Ratio Sodium 141 D (136-145) mmol/L Potassium 3.3 L D (3.5-5.1) mmol/L Chloride 106 (98-107) mmol/L Carbon Dioxide 25 (21-32) mmol/L Anion Gap 10.0 (3-11) BUN 1 L (7-18) mg/dl Creatinine 0.57 L (0.6-1.2) mg/dl Est Cr Clr Drug Dosing 113.8 ml/min Est GFR ( Amer) 121.8 Est GFR (Non-Af Amer) 105.1 BUN/Creatinine Ratio 2.1 L (10-20) Glucose 80 (70-99) mg/dl POC Lactic Acid Horacio (0.90-1.70) mmol/L Lactate (0.4-2.0) mmol/L Calcium 7.2 L (8.5-10.1) mg/dl Magnesium (1.8-2.4) mg/dl Total Bilirubin 14.4 H (0.2-1) mg/dl Direct Bilirubin (0-0.2) mg/dl AST 124 H (15-37) U/L ALT 62 (12-78) U/L Alkaline Phosphatase 326 H (45-117) U/L Troponin I (0-0.045) ng/ml Total Protein 4.7 L D (6.4-8.2) gm/dl Albumin 2.1 L (3.4-5.0) gm/dl Globulin 2.6 (2.5-4.0) gm/dl Albumin/Globulin Ratio 0.8 L (0.9-2) Lipase (73-393) U/L Urine Color Urine Appearance (Clear) Urine pH (4.5-7.5) Ur Specific [place] (1.000-1.030) Urine Protein (Negative) Urine Glucose (UA) (Negative) Urine Ketones (Negative) Urine Blood (Negative) Urine Nitrite (Negative) Urine Bilirubin (Negative) Urine Urobilinogen (Negative) Ur Leukocyte Esterase (Negative) Urine WBC (Auto) (0-5) /hpf Urine RBC (Auto) (0-4) /hpf U Hyaline Cast (Auto) U Epithel Cells (Auto) (0-5) /lpf Urine Bacteria (Auto) (Negative) Ur Renal Epithelial Cell (0-5) /lpf Urine Crystals Urine Opiates Screen (Neg) Ur Methadone, Qual (Neg) Urine Barbiturates (Neg) Ur Phencyclidine (PCP) (Neg) U Amphetamin/Meth Scrn (Neg) MDMA (Ecstasy) Screen (Neg) U Benzodiazepines Scrn (Neg) Ur Cocaine Metabolite (Neg) U Marijuana (THC) Screen (Neg) Hepatitis C Ab Screen Neg (Neg) 06/29/19 06/28/19 06/28/19 Range/Units 06:16 23:12 23:12 WBC 8.91 (4.8-10.8) K/uL RBC 2.73 L (4.2-5.4) M/uL Hgb 10.6 L (12.0-16.0) g/dL Hct 30.8 L (37-47) % MCV 112.8 H (80-100) fL MCH 38.8 H (25-34) pg MCHC 34.4 (32-36) g/dL RDW Std Deviation 65.3 H (36.4-46.3) fL RDW Coeff of Car 16.2 H (11.5-14.5) % Plt Count 166 (130-400) K/uL MPV 13.3 H (7.4-10.4) fL Immature Gran % (Auto) % Neut % (Auto) % Lymph % (Auto) % [place] % (Auto) % Eos % (Auto) % Baso % (Auto) % Immature Gran # (Auto) (0.00-0.02) K/uL Neut # (Auto) (1.4-6.5) K/uL Lymph # (Auto) (1.2-3.4) K/uL [place] # (Auto) (0.11-0.59) K/uL Eos # (Auto) (0-0.5) K/uL Baso # (Auto) (0-0.2) K/uL Absolute Nucleated RBC 0.09 H (0-0) K/uL Nucleated RBC % (auto) 1.0 % Polychromasia Macrocytosis Pappenheimer Bodies PT (9.0-12.0) Seconds INR (0.9-1.1) APTT (21.0-31.0) Seconds PTT Ratio Sodium 134 L (136-145) mmol/L Potassium 2.5 L* (3.5-5.1) mmol/L Chloride 98 (98-107) mmol/L Carbon Dioxide 26 (21-32) mmol/L Anion Gap 11.0 (3-11) BUN 2 L (7-18) mg/dl Creatinine 0.72 (0.6-1.2) mg/dl Est Cr Clr Drug Dosing 90.1 ml/min Est GFR ( Amer) 110.0 Est GFR (Non-Af Amer) 94.9 BUN/Creatinine Ratio 2.6 L (10-20) Glucose 119 H (70-99) mg/dl POC Lactic Acid Horacio (0.90-1.70) mmol/L Lactate 1.8 (0.4-2.0) mmol/L Calcium 7.1 L (8.5-10.1) mg/dl Magnesium 1.9 (1.8-2.4) mg/dl Total Bilirubin (0.2-1) mg/dl Direct Bilirubin (0-0.2) mg/dl AST (15-37) U/L ALT (12-78) U/L Alkaline Phosphatase (45-117) U/L Troponin I (0-0.045) ng/ml Total Protein (6.4-8.2) gm/dl Albumin (3.4-5.0) gm/dl Globulin (2.5-4.0) gm/dl Albumin/Globulin Ratio (0.9-2) Lipase (73-393) U/L Urine Color Urine Appearance (Clear) Urine pH (4.5-7.5) Ur Specific [place] (1.000-1.030) Urine Protein (Negative) Urine Glucose (UA) (Negative) Urine Ketones (Negative) Urine Blood (Negative) Urine Nitrite (Negative) Urine Bilirubin (Negative) Urine Urobilinogen (Negative) Ur Leukocyte Esterase (Negative) Urine WBC (Auto) (0-5) /hpf Urine RBC (Auto) (0-4) /hpf U Hyaline Cast (Auto) U Epithel Cells (Auto) (0-5) /lpf Urine Bacteria (Auto) (Negative) Ur Renal Epithelial Cell (0-5) /lpf Urine Crystals Urine Opiates Screen (Neg) Ur Methadone, Qual (Neg) Urine Barbiturates (Neg) Ur Phencyclidine (PCP) (Neg) U Amphetamin/Meth Scrn (Neg) MDMA (Ecstasy) Screen (Neg) U Benzodiazepines Scrn (Neg) Ur Cocaine Metabolite (Neg) U Marijuana (THC) Screen (Neg) Hepatitis C Ab Screen (Neg) 06/28/19 06/28/19 06/28/19 Range/Units 17:43 17:00 16:34 WBC (4.8-10.8) K/uL RBC (4.2-5.4) M/uL Hgb (12.0-16.0) g/dL Hct (37-47) % MCV (80-100) fL MCH (25-34) pg MCHC (32-36) g/dL RDW Std Deviation (36.4-46.3) fL RDW Coeff of Car (11.5-14.5) % Plt Count (130-400) K/uL MPV (7.4-10.4) fL Immature Gran % (Auto) % Neut % (Auto) % Lymph % (Auto) % [place] % (Auto) % Eos % (Auto) % Baso % (Auto) % Immature Gran # (Auto) (0.00-0.02) K/uL Neut # (Auto) (1.4-6.5) K/uL Lymph # (Auto) (1.2-3.4) K/uL [place] # (Auto) (0.11-0.59) K/uL Eos # (Auto) (0-0.5) K/uL Baso # (Auto) (0-0.2) K/uL Absolute Nucleated RBC (0-0) K/uL Nucleated RBC % (auto) % Polychromasia Macrocytosis Pappenheimer Bodies PT (9.0-12.0) Seconds INR (0.9-1.1) APTT (21.0-31.0) Seconds PTT Ratio Sodium (136-145) mmol/L Potassium (3.5-5.1) mmol/L Chloride (98-107) mmol/L Carbon Dioxide (21-32) mmol/L Anion Gap (3-11) BUN (7-18) mg/dl Creatinine (0.6-1.2) mg/dl Est Cr Clr Drug Dosing ml/min Est GFR ( Amer) Est GFR (Non-Af Amer) BUN/Creatinine Ratio (10-20) Glucose (70-99) mg/dl POC Lactic Acid Horacio 2.73 H 4.14 H (0.90-1.70) mmol/L Lactate (0.4-2.0) mmol/L Calcium (8.5-10.1) mg/dl Magnesium (1.8-2.4) mg/dl Total Bilirubin (0.2-1) mg/dl Direct Bilirubin (0-0.2) mg/dl AST (15-37) U/L ALT (12-78) U/L Alkaline Phosphatase (45-117) U/L Troponin I (0-0.045) ng/ml Total Protein (6.4-8.2) gm/dl Albumin (3.4-5.0) gm/dl Globulin (2.5-4.0) gm/dl Albumin/Globulin Ratio (0.9-2) Lipase (73-393) U/L Urine Color Urine Appearance (Clear) Urine pH (4.5-7.5) Ur Specific [place] (1.000-1.030) Urine Protein (Negative) Urine Glucose (UA) (Negative) Urine Ketones (Negative) Urine Blood (Negative) Urine Nitrite (Negative) Urine Bilirubin (Negative) Urine Urobilinogen (Negative) Ur Leukocyte Esterase (Negative) Urine WBC (Auto) (0-5) /hpf Urine RBC (Auto) (0-4) /hpf U Hyaline Cast (Auto) U Epithel Cells (Auto) (0-5) /lpf Urine Bacteria (Auto) (Negative) Ur Renal Epithelial Cell (0-5) /lpf Urine Crystals Urine Opiates Screen Neg (Neg) Ur Methadone, Qual Neg (Neg) Urine Barbiturates Neg (Neg) Ur Phencyclidine (PCP) Neg (Neg) U Amphetamin/Meth Scrn Neg (Neg) MDMA (Ecstasy) Screen Neg (Neg) U Benzodiazepines Scrn Neg (Neg) Ur Cocaine Metabolite Neg (Neg) U Marijuana (THC) Screen Neg (Neg) Hepatitis C Ab Screen (Neg) 06/28/19 06/28/19 06/28/19 Range/Units 16:26 16:26 16:26 WBC (4.8-10.8) K/uL RBC (4.2-5.4) M/uL Hgb (12.0-16.0) g/dL Hct (37-47) % MCV (80-100) fL MCH (25-34) pg MCHC (32-36) g/dL RDW Std Deviation (36.4-46.3) fL RDW Coeff of Car (11.5-14.5) % Plt Count (130-400) K/uL MPV (7.4-10.4) fL Immature Gran % (Auto) % Neut % (Auto) % Lymph % (Auto) % [place] % (Auto) % Eos % (Auto) % Baso % (Auto) % Immature Gran # (Auto) (0.00-0.02) K/uL Neut # (Auto) (1.4-6.5) K/uL Lymph # (Auto) (1.2-3.4) K/uL [place] # (Auto) (0.11-0.59) K/uL Eos # (Auto) (0-0.5) K/uL Baso # (Auto) (0-0.2) K/uL Absolute Nucleated RBC (0-0) K/uL Nucleated RBC % (auto) % Polychromasia Macrocytosis Pappenheimer Bodies PT 18.3 H (9.0-12.0) Seconds INR 1.9 H (0.9-1.1) APTT 24.1 (21.0-31.0) Seconds PTT Ratio 0.9 Sodium 130 L (136-145) mmol/L Potassium 2.7 L (3.5-5.1) mmol/L Chloride 88 L (98-107) mmol/L Carbon Dioxide 26 (21-32) mmol/L Anion Gap 16.0 H (3-11) BUN 2 L (7-18) mg/dl Creatinine 0.90 (0.6-1.2) mg/dl Est Cr Clr Drug Dosing 72.1 ml/min Est GFR ( Amer) 84.0 Est GFR (Non-Af Amer) 72.5 BUN/Creatinine Ratio 2.1 L (10-20) Glucose 103 H (70-99) mg/dl POC Lactic Acid Horacio (0.90-1.70) mmol/L Lactate (0.4-2.0) mmol/L Calcium 7.9 L (8.5-10.1) mg/dl Magnesium 1.2 L (1.8-2.4) mg/dl Total Bilirubin 18.7 H (0.2-1) mg/dl Direct Bilirubin 13.9 H (0-0.2) mg/dl AST 187 H (15-37) U/L ALT 88 H (12-78) U/L Alkaline Phosphatase 462 H (45-117) U/L Troponin I < 0.015 (0-0.045) ng/ml Total Protein 6.5 (6.4-8.2) gm/dl Albumin 2.9 L (3.4-5.0) gm/dl Globulin (2.5-4.0) gm/dl Albumin/Globulin Ratio (0.9-2) Lipase 134 (73-393) U/L Urine Color [place] Urine Appearance Turbid A (Clear) Urine pH 6.5 (4.5-7.5) Ur Specific [place] 1.016 (1.000-1.030) Urine Protein 1+ H (Negative) Urine Glucose (UA) Trace H (Negative) Urine Ketones Negative (Negative) Urine Blood Trace H (Negative) Urine Nitrite Positive A (Negative) Urine Bilirubin 3+ H (Negative) Urine Urobilinogen Negative (Negative) Ur Leukocyte Esterase 1+ H (Negative) Urine WBC (Auto) >30 H (0-5) /hpf Urine RBC (Auto) 10-30 H (0-4) /hpf U Hyaline Cast (Auto) Not Reportable U Epithel Cells (Auto) >30 H (0-5) /lpf Urine Bacteria (Auto) Negative (Negative) Ur Renal Epithelial Cell 10-20 H (0-5) /lpf Urine Crystals Not Reportable Urine Opiates Screen (Neg) Ur Methadone, Qual (Neg) Urine Barbiturates (Neg) Ur Phencyclidine (PCP) (Neg) U Amphetamin/Meth Scrn (Neg) MDMA (Ecstasy) Screen (Neg) U Benzodiazepines Scrn (Neg) Ur Cocaine Metabolite (Neg) U Marijuana (THC) Screen (Neg) Hepatitis C Ab Screen (Neg) 06/28/19 Range/Units 16:26 WBC 10.01 (4.8-10.8) K/uL RBC 3.37 L (4.2-5.4) M/uL Hgb 13.2 (12.0-16.0) g/dL Hct 38.5 (37-47) % MCV 114.2 H (80-100) fL MCH 39.2 H (25-34) pg MCHC 34.3 (32-36) g/dL RDW Std Deviation 65.8 H (36.4-46.3) fL RDW Coeff of Car 16.2 H (11.5-14.5) % Plt Count 156 (130-400) K/uL MPV 14.0 H (7.4-10.4) fL Immature Gran % (Auto) 1.3 % Neut % (Auto) 72.4 % Lymph % (Auto) 17.3 % [place] % (Auto) 8.0 % Eos % (Auto) 0.5 % Baso % (Auto) 0.5 % Immature Gran # (Auto) 0.13 H (0.00-0.02) K/uL Neut # (Auto) 7.25 H (1.4-6.5) K/uL Lymph # (Auto) 1.73 (1.2-3.4) K/uL [place] # (Auto) 0.80 H (0.11-0.59) K/uL Eos # (Auto) 0.05 (0-0.5) K/uL Baso # (Auto) 0.05 (0-0.2) K/uL Absolute Nucleated RBC 0.12 H (0-0) K/uL Nucleated RBC % (auto) 1.2 % Polychromasia 1+ Macrocytosis Present Pappenheimer Bodies 2+ PT (9.0-12.0) Seconds INR (0.9-1.1) APTT (21.0-31.0) Seconds PTT Ratio Sodium (136-145) mmol/L Potassium (3.5-5.1) mmol/L Chloride (98-107) mmol/L Carbon Dioxide (21-32) mmol/L Anion Gap (3-11) BUN (7-18) mg/dl Creatinine (0.6-1.2) mg/dl Est Cr Clr Drug Dosing ml/min Est GFR ( Amer) Est GFR (Non-Af Amer) BUN/Creatinine Ratio (10-20) Glucose (70-99) mg/dl POC Lactic Acid Horacio (0.90-1.70) mmol/L Lactate (0.4-2.0) mmol/L Calcium (8.5-10.1) mg/dl Magnesium (1.8-2.4) mg/dl Total Bilirubin (0.2-1) mg/dl Direct Bilirubin (0-0.2) mg/dl AST (15-37) U/L ALT (12-78) U/L Alkaline Phosphatase (45-117) U/L Troponin I (0-0.045) ng/ml Total Protein (6.4-8.2) gm/dl Albumin (3.4-5.0) gm/dl Globulin (2.5-4.0) gm/dl Albumin/Globulin Ratio (0.9-2) Lipase (73-393) U/L Urine Color Urine Appearance (Clear) Urine pH (4.5-7.5) Ur Specific [place] (1.000-1.030) Urine Protein (Negative) Urine Glucose (UA) (Negative) Urine Ketones (Negative) Urine Blood (Negative) Urine Nitrite (Negative) Urine Bilirubin (Negative) Urine Urobilinogen (Negative) Ur Leukocyte Esterase (Negative) Urine WBC (Auto) (0-5) /hpf Urine RBC (Auto) (0-4) /hpf U Hyaline Cast (Auto) U Epithel Cells (Auto) (0-5) /lpf Urine Bacteria (Auto) (Negative) Ur Renal Epithelial Cell (0-5) /lpf Urine Crystals Urine Opiates Screen (Neg) Ur Methadone, Qual (Neg) Urine Barbiturates (Neg) Ur Phencyclidine (PCP) (Neg) U Amphetamin/Meth Scrn (Neg) MDMA (Ecstasy) Screen (Neg) U Benzodiazepines Scrn (Neg) Ur Cocaine Metabolite (Neg) U Marijuana (THC) Screen (Neg) Hepatitis C Ab Screen (Neg)
[2019-06-29] MEDS: NICOTINE 14 MG/24 HR PATCH TD SCH (12:42)
[2019-06-29] MEDS ORDERED: POTASSIUM CHLORIDE 20 MEQ TABCR PO STA (17:58)
--- NOTE | 2019-06-29 17:58 | Hospitalist Progress Note ---
Date of Service June 29, 2019 Assessment & Plan (1) Hyperbilirubinemia: Patient with history of alcoholism presenting with direct bilirubinemia, LFT elevation Today total bilirubin improved from 18 to 14 AST/ALT and alk phos also improving MRCP: No signs of obstruction GI service consulted Presentation felt to be secondary to alcoholic hepatitis Recommending initiation of N-acetylcysteine protocol Steroids on hold at this time until blood cultures are proven to be negative Allergies for viral and autoimmune hepatitis also sent today Continue to trend LFT level (2) Lactic acidosis: POC lactic acid elevated at 4.14, repeat 2.73 with fluids -In setting of dehydration, transaminitis -Afebrile, no leukocytosis, no abdominal pain. Blood and urine cultures pending Given IV fluids lactic acid level normalized (3) Hypokalemia: Potassium initially 2.7 in setting of dehydration, poor nutrition -Denies GI losses Continue replacement (4) Hypomagnesemia: Initial Mg 1.2 -Replaced in ED resolved (5) Abnormal urinalysis: UA with nitrites and 1+ leuk esterase -No urinary symptoms or leukocytosis -Urine culture pending -Consider abx if patient develops symptoms or urine culture is positive (6) Prolonged QT interval: QTc prolonged at 537 ms -Avoid prolonging agents -Replacing electrolytes, monitor on telemetry DVT Ppx: SCDs for now Code status: FULL PCP: Vane Devlin Dispo: Admitted to telemetry. Plan to return home once medically stable. Subjective Follow-up for hyperbilirubinemia Seen resting in bed, comfortable, sleeping but easily awakened No distress States she feels start otherwise feels okay overall Abdominal pain, nausea, chest pain, shortness of breath, palpitations, dizziness Tolerating clear liquids diet well No problems urination and bowel movements Denies other symptoms Review of Systems Review of Systems: All systems reviewed & are unremarkable except as noted in HPI & below Physical Exam Physical Exam: General- oriented x 3, not in distress, speaks in sentences with no effort or accessory muscle use Head- atraumatic Eyes- PERRL, EOMI, positive icterus ENT- oropharynx clear Neck- supple, no JVD, no adenopathy, no thyromegaly; carotids +2/2, no bruits appreciated Lungs- clear to auscultation bilaterally, no rales/wheezes Heart- normal rate, regular rhythm; no murmur, no gallop, no rub appreciated Abdomen- normal bowel sounds, nondistended, soft, nontender, no masses or hepatosplenomegaly Extremities- no pretibial edema, no calf tenderness; peripheral pulses intact Neuro- alert, oriented x 3; CN 2-12 grossly intact; motor 5/5 bilaterally;sensation 100% on all extremities; no other gross focal neurologic deficits Skin-positive jaundice; warm & dry Results & Data Vital Signs (Past 12 Hours) Vital Signs Temp Pulse Pulse Resp BP Pulse Ox 06/29/19 15:46 37.0 C 79 17 109/72 94 06/29/19 15:12 81 06/29/19 11:51 36.6 C 72 22 102/69 95 06/29/19 07:34 36.7 C 78 18 105/71 92 06/29/19 07:20 78 Laboratory Results Laboratory Results - last 24 hr 06/28/19 06/28/19 06/28/19 16:26 17:00 17:43 WBC RBC Hgb Hct MCV MCH MCHC RDW Std Deviation RDW Coeff of Car Plt Count MPV Absolute Nucleated RBC Nucleated RBC % (auto) PT INR Sodium Potassium Chloride Carbon Dioxide Anion Gap BUN Creatinine Est Cr Clr Drug Dosing Est GFR ( Amer) Est GFR (Non-Af Amer) BUN/Creatinine Ratio Glucose POC Lactic Acid Horacio 2.73 H Lactate Calcium Magnesium Total Bilirubin AST ALT Alkaline Phosphatase Total Protein Albumin Globulin Albumin/Globulin Ratio Urine Crystals Not Reportable Urine Opiates Screen Neg Ur Methadone, Qual Neg Urine Barbiturates Neg Ur Phencyclidine (PCP) Neg U Amphetamin/Meth Scrn Neg MDMA (Ecstasy) Screen Neg U Benzodiazepines Scrn Neg Ur Cocaine Metabolite Neg U Marijuana (THC) Screen Neg Hepatitis C Ab Screen 06/28/19 06/28/19 06/29/19 23:12 23:12 06:16 WBC 8.91 RBC 2.73 L Hgb 10.6 L Hct 30.8 L MCV 112.8 H MCH 38.8 H MCHC 34.4 RDW Std Deviation 65.3 H RDW Coeff of Car 16.2 H Plt Count 166 MPV 13.3 H Absolute Nucleated RBC 0.09 H Nucleated RBC % (auto) 1.0 PT INR Sodium 134 L Potassium 2.5 L* Chloride 98 Carbon Dioxide 26 Anion Gap 11.0 BUN 2 L Creatinine 0.72 Est Cr Clr Drug Dosing 90.1 Est GFR ( Amer) 110.0 Est GFR (Non-Af Amer) 94.9 BUN/Creatinine Ratio 2.6 L Glucose 119 H POC Lactic Acid Horacio Lactate 1.8 Calcium 7.1 L Magnesium 1.9 Total Bilirubin AST ALT Alkaline Phosphatase Total Protein Albumin Globulin Albumin/Globulin Ratio Urine Crystals Urine Opiates Screen Ur Methadone, Qual Urine Barbiturates Ur Phencyclidine (PCP) U Amphetamin/Meth Scrn MDMA (Ecstasy) Screen U Benzodiazepines Scrn Ur Cocaine Metabolite U Marijuana (THC) Screen Hepatitis C Ab Screen 06/29/19 06/29/19 06/29/19 06:16 06:16 06:16 WBC RBC Hgb Hct MCV MCH MCHC RDW Std Deviation RDW Coeff of Car Plt Count MPV Absolute Nucleated RBC Nucleated RBC % (auto) PT 15.9 H INR 1.6 H Sodium 141 D Potassium 3.3 L D Chloride 106 Carbon Dioxide 25 Anion Gap 10.0 BUN 1 L Creatinine 0.57 L Est Cr Clr Drug Dosing 113.8 Est GFR ( Amer) 121.8 Est GFR (Non-Af Amer) 105.1 BUN/Creatinine Ratio 2.1 L Glucose 80 POC Lactic Acid Horacio Lactate Calcium 7.2 L Magnesium Total Bilirubin 14.4 H AST 124 H ALT 62 Alkaline Phosphatase 326 H Total Protein 4.7 L D Albumin 2.1 L Globulin 2.6 Albumin/Globulin Ratio 0.8 L Urine Crystals Urine Opiates Screen Ur Methadone, Qual Urine Barbiturates Ur Phencyclidine (PCP) U Amphetamin/Meth Scrn MDMA (Ecstasy) Screen U Benzodiazepines Scrn Ur Cocaine Metabolite U Marijuana (THC) Screen Hepatitis C Ab Screen Neg
[2019-06-29] MEDS ORDERED: OXYCODONE HCL IR 5 MG TAB (IMMEDIATE RELEASE) PO PRN (20:12)
[2019-06-30] MEDS: D5NSS + 20MEQ KCL 20 MEQ/1,000 ML BAG IV SCH ×3 (03:27→23:02)
[2019-06-30 05:54] LABS: Hematocrit (blood only) 30.2 % (37-47); Hemoglobin 10.2 g/dL (12.0-16.0); Mean Corpuscular Hgb Conc 33.8 g/dL (32-36); Mean Corpuscular Volume 113.5 fL (80-100); Mean Platelet Volume 13.7 fL (7.4-10.4); Nucleated RBC % (auto) 1.2 %; Platelet Count 156 K/uL (130-400); RDW Coefficient of Variation 16.3 % (11.5-14.5); RDW Standard Deviation 65.2 fL (36.4-46.3); Red Blood Count 2.66 M/uL (4.2-5.4); White Blood Count 8.57 K/uL (4.8-10.8)
[2019-06-30 06:05] LABS: Prothrombin Time 19.1 Seconds (9.0-12.0)
[2019-06-30 06:46] LABS: Albumin Globulin Ratio 0.7 (0.9-2); Albumin Level 1.9 gm/dl (3.4-5.0); Bilirubin,Total 15.8 mg/dl (0.2-1); Calcium 6.9 mg/dl (8.5-10.1); Creatinine Clr Calc Pharmacy 118.7 ml/min; Est GFR (African American) 123.1; Est GFR (Non-African American) 106.2; Ferritin 1013.9 ng/ml (8-388); Globulin 2.6 gm/dl (2.5-4.0); Total Protein 4.5 gm/dl (6.4-8.2)
[2019-06-30 06:53] LABS: Bilirubin Direct 11.9 mg/dl (0-0.2)
[2019-06-30 08:15] LABS: Hepatitis B Surface Antigen Neg (Neg)
[2019-06-30] MEDS: NICOTINE 14 MG/24 HR PATCH TD SCH (08:15)
[2019-06-30 08:46] LABS: Hepatitis C IgG 13Yrs+Old_Rflx Neg (Neg)
--- NOTE | 2019-06-30 10:18 | Gastroenterology Progress Note ---
Date of Service June 30, 2019 Assessment & Plan (1) Jaundice: 53 year old female with history of alcohol abuse, last drink over three weeks ago that presented to PCP initially with malaise/fatigue workup with markedly elevated LFT w/ max T BILI 18, INR 1.9 on 06/28/19. MRCP reviewed, ?linear filling defect of CBD but no stones/sludge/mass/lesion. Dx: presentation most consistent with alcoholic hepatitis. Viral studies negative thus far. Autoimmune serology pending. Considered but less likely is DILI. Obstructive process has been ruled with non dilated ducts on MRCP. Will review remainder of viral studies and serology when results are available. Trend LFTs, INR every 1-2 days. Discussed need for strict ETOH cessation - permanently. No tylenol products - DF 46 --> 32 ---> 48 - Candidate for steroids AFTER cultures return if NO evidence of infection. - Continue NAC per protocol for now. Because no abdominal pain, unlikely cholecystitis, will start a 2 gram sodium soft diet. GI will follow. In the event of upward trending INR or acute mental status changes pt will need to be evaluated at a tertiary care center w/ inpatient liver team. Supervising Physician Co-Signing Physician Notes PE- alert and oriented, no acute change in abdominal exam Labs reviewed- slight up trend to bilirubin and INR, blood cultures initially negative Agree with further plan of care as per Blaze's assessment and plan. Treating for severe alcoholic hepatitis with NAC for now, can start Prednisolone and continue for 28 days once cultures are negative and dc NAC at that time. If signs of altered mental status, concerns for worsening liver function and consideration of transfer to a tertiary referral center. Subjective Ms. Sheyla Melton is a 54 yr old female admitted on 06/28 for jaundice. US with 7mm bile duct, question of choledocholithiasis but MRCP without biliary or pancreatic ducts dilation. LFTs: T bili 18 (on arrival) ->15 today; AST 187->100; ALT 125->58 Alk Phos 462 ->273 Pt ambulating in room. Denies pain. Hungry, requests food. Review of Systems Constitutional: + fatigue and + malaise; no fever and no chills Eyes: icterus, denies pain, itchy, discharge or vision problems Ear, Nose, Mouth, Throat: no ear pain, no tinnitus and no dizziness Respiratory: no cough, no chest congestion and no dyspnea Cardiovascular: no chest pain, no dyspnea, no palpitations and no edema Gastrointestinal: as per Subjective / HPI Genitourinary: no dysuria, no difficulty urinating and no hematuria Musculoskeletal: no back pain, no neck pain and no swelling Integumentary: + yellowing of the skin; no rash and no lesions Neurologic: no numbness, no tremor(s), no seizure-like activity and no confusion Psychiatric: no depression, no panic attacks and no hallucinations Endocrine: + fatigue; no polydipsia, no polyphagia and no polyuria Allergy / Immunological: no problem reported Physical Exam Constitutional: WD/WN, vitals as above Eyes: + anicteric sclerae and PERRL ENMT: external ear and nose normal, oropharynx normal Neck: trachea midline, no thyromegaly Respiratory: normal respiratory effort, lungs clear to auscultation Cardiovascular: RRR, no murmur, no edema Gastrointestinal (Abdomen): Inspection/Auscultation: abdomen not distended and no abdominal edema Percussion/Palpation: + abdomen tender (mild RUQ tenderness), abdomen soft and + hepatosplenomegaly Skin: no rashes, warm and dry + jaundice; no wound Neurologic: PERRL, EOMI, accommodation nl, no face palsy, no dysarthria Psychiatric: A+Ox3, euthymic affect Lymphatic: no cervical or axillary lymphadenopathy Results & Data Vital Signs (Past 12 Hours) Vital Signs Temp Pulse Pulse Resp BP Pulse Ox 06/30/19 07:38 82 06/30/19 07:07 36.8 C 82 16 104/71 92 06/30/19 03:13 37.0 C 84 18 118/65 93 06/29/19 23:48 36.8 C 89 16 105/69 93 Diagnostic Findings MRCP 06/28 1. Mildly distended gallbladder with borderline gallbladder wall thickening and pericholecystic fluid. No calculi identified 2. Small amounts of peripancreatic retroperitoneal and periportal fluid. Correlation with pancreatic enzymes is recommended 3. No evidence of biliary or pancreatic ductal dilatation 4. Subtle linear filling defect within the common bile duct. This is of uncertain significance. This is not felt to represent a calculus. 5. Hepatic steatosis US 06/28: 1. Hepatomegaly and severe hepatic steatosis. 2. No shadowing gallstones are identified. 3. The gallbladder is distended, and the gallbladder wall is thickened and edematous. A sonographic Mejia's sign is reportedly absent. The gallbladder findings may simply be related to hepatocellular disease. Findings are equivocal for acute cholecystitis which is not excluded. Clinical correlation will be essential. Nuclear hepatobiliary scan could be considered for further assessment and to assess for cystic duct obstruction. 4. An indeterminant linear echogenic structure is identified within the common bile duct. This is not consistent with choledocholithiasis. Correlate clinically for history of previous instrumentation.
[2019-06-30] MEDS ORDERED: POTASSIUM CHLORIDE 10 MEQ TABCR PO STA (10:50)
--- NOTE | 2019-06-30 16:39 | Hospitalist Progress Note ---
Date of Service June 30, 2019 Assessment & Plan (1) Hyperbilirubinemia: suspected Alcoholic Hepatitis Patient with history of alcoholism presenting with direct bilirubinemia, LFT elevation Today total bilirubin slightly increased from 14 to 15 AST/ALT and alk phos improving MRCP: No signs of obstruction GI service consulted Presentation felt to be secondary to alcoholic hepatitis given N-acetylcysteine protocol Steroids on hold at this time until blood cultures are proven to be negative Allergies for viral and autoimmune hepatitis pending Continue to trend LFT levels Diet ordered counseled on Alcohol cessation (2) Lactic acidosis: POC lactic acid elevated at 4.14, repeat 2.73 with fluids -In setting of dehydration, transaminitis -Afebrile, no leukocytosis, no abdominal pain - Blood and urine cultures pending Given IV fluids, lactic acid level normalized (3) Hypokalemia: Potassium initially 2.7 in setting of dehydration, poor nutrition -Denies GI losses Continue replacement (4) Hypomagnesemia: Initial Mg 1.2 -Replaced in ED resolved (5) Abnormal urinalysis: UA with nitrites and 1+ leuk esterase -No urinary symptoms or leukocytosis -Urine culture pending -Consider abx if patient develops symptoms or urine culture is positive (6) Prolonged QT interval: QTc prolonged at 537 ms -Avoid prolonging agents -Replacing electrolytes, monitor on telemetry DVT Ppx: SCDs for now Code status: FULL PCP: Vane Devlin Dispo: Admitted to telemetry. Plan to return home once medically stable. Subjective ff up for hyperbilirubinemia seen resting in bed, in good spirits states she feels somewhat better than yesterday reports diarrhea 2-3 LBMs today no abdominal pain, nausea/vomiting no chest pain, dyspnea, palpitations, dizziness no other symptoms Review of Systems Review of Systems: All systems reviewed & are unremarkable except as noted in HPI & below Physical Exam Physical Exam: General- oriented x 3, not in distress, speaks in sentences with no effort or accessory muscle use Eyes- (+) icterus Neck- no JVD Lungs- clear breath sounds bilaterally, no rales/wheezes Heart- normal rate, regular rhythm; no murmurs Abdomen- normal bowel sounds, nondistended, soft, mild tenderness on all quadrants Extremities- no pretibial edema, no calf tenderness Neuro- alert, oriented x 3; no gross focal neurologic deficits Skin- warm & dry; (+) jaundice Results & Data Vital Signs (Past 12 Hours) Vital Signs Temp Pulse Pulse Resp BP Pulse Ox 06/30/19 15:13 36.5 C 88 18 113/81 94 06/30/19 11:46 36.9 C 79 20 112/76 94 06/30/19 07:38 82 06/30/19 07:07 36.8 C 82 16 104/71 92 Laboratory Results Laboratory Results - last 24 hr 06/30/19 06/30/19 06/30/19 05:33 05:33 05:33 WBC 8.57 RBC 2.66 L Hgb 10.2 L Hct 30.2 L MCV 113.5 H MCH 38.3 H MCHC 33.8 RDW Std Deviation 65.2 H RDW Coeff of Car 16.3 H Plt Count 156 MPV 13.7 H Absolute Nucleated RBC 0.10 H Nucleated RBC % (auto) 1.2 PT 19.1 H INR 2.0 H Sodium 138 Potassium 3.0 L Chloride 108 H Carbon Dioxide 21 Anion Gap 9.0 BUN 1 L Creatinine 0.54 L Est Cr Clr Drug Dosing 118.7 Est GFR ( Amer) 123.1 Est GFR (Non-Af Amer) 106.2 BUN/Creatinine Ratio 2.0 L Glucose 129 H Calcium 6.9 L Iron 133 TIBC 159 L Transferrin 118 L Transferrin % Sat 80 H Ferritin 1013.9 H Total Bilirubin 15.8 H Direct Bilirubin 11.9 H AST 100 H ALT 58 Alkaline Phosphatase 273 H Total Protein 4.5 L Albumin 1.9 L Globulin 2.6 Albumin/Globulin Ratio 0.7 L Stl C. diff Tox B Gene ALVIN Screen Anti-Mitochondrial Ab Anti-Smooth Muscle Ab CMV IgG Ab CMV IgM Ab EBV Capsid Ag IgM Ab Hepatitis A IgM Ab Hep Bs Antigen Hep B Core IgM Ab Hepatitis C Antibody HSV I IgG Ab HSV I IgM Ab (IFA) HSV II IgG HSV II IgM Ab (IFA) 06/30/19 06/30/19 06/30/19 05:33 05:33 09:45 WBC RBC Hgb Hct MCV MCH MCHC RDW Std Deviation RDW Coeff of Car Plt Count MPV Absolute Nucleated RBC Nucleated RBC % (auto) PT INR Sodium Potassium Chloride Carbon Dioxide Anion Gap BUN Creatinine Est Cr Clr Drug Dosing Est GFR ( Amer) Est GFR (Non-Af Amer) BUN/Creatinine Ratio Glucose Calcium Iron TIBC Transferrin Transferrin % Sat Ferritin Total Bilirubin Direct Bilirubin AST ALT Alkaline Phosphatase Total Protein Albumin Globulin Albumin/Globulin Ratio Stl C. diff Tox B Gene Negative Cdiff Gene ALVIN Screen Pending Anti-Mitochondrial Ab Pending Anti-Smooth Muscle Ab Pending CMV IgG Ab Pending CMV IgM Ab Pending EBV Capsid Ag IgM Ab Pending Hepatitis A IgM Ab Pending Hep Bs Antigen Neg Hep B Core IgM Ab Pending Hepatitis C Antibody Neg HSV I IgG Ab Pending HSV I IgM Ab (IFA) Pending HSV II IgG Pending HSV II IgM Ab (IFA) Pending
[2019-06-30] MEDS: POTASSIUM CHLORIDE 10 MEQ TABCR PO SCH (21:18)
[2019-06-30] MEDS: LOPERAMIDE HCL 2 MG CAP PO PRN ×3 (22:16→23:46)
[2019-07-01 06:17] LABS: BUN Creatinine Ratio 2.1 (10-20); Calcium 7.3 mg/dl (8.5-10.1); Creatinine Clr Calc Pharmacy 114.5 ml/min; Est GFR (African American) 121.7; Magnesium 1.4 mg/dl (1.8-2.4); Potassium 3.6 mmol/L (3.5-5.1)
[2019-07-01] MEDS: MAGNESIUM SULFATE / D5W 1 GM/100 ML BAG IV SCH ×2 (07:43→08:43)
[2019-07-01] MEDS: POTASSIUM CHLORIDE 10 MEQ TABCR PO SCH ×2 (08:45→21:36)
[2019-07-01] MEDS: D5NSS + 20MEQ KCL 20 MEQ/1,000 ML BAG IV SCH ×2 (08:45→18:56)
[2019-07-01] MEDS: NICOTINE 14 MG/24 HR PATCH TD SCH (08:46)
[2019-07-01] MEDS: LOPERAMIDE HCL 2 MG CAP PO PRN (08:46)
[2019-07-01 09:23] LABS: Albumin Level 1.9 gm/dl (3.4-5.0); Bilirubin,Total 15.9 mg/dl (0.2-1); Total Protein 4.6 gm/dl (6.4-8.2)
[2019-07-01 09:36] LABS: Bilirubin Direct 12.5 mg/dl (0-0.2)
--- NOTE | 2019-07-01 13:35 | Gastroenterology Progress Note ---
Date of Service July 01, 2019 Assessment & Plan (1) Alcoholic hepatitis: 1. Cx are negative for infection. - begin prednisolone 40mg daily for tx of liver inflammation. Please discharge on this dosage (usually this dose for a month then taper) 2. Alcohol abstention. 3. Low salt diet. 4. Would avoid diuretics - can re-evaluate at OP f/u. 5. OP GI f/u in gastroenterology with Vane Gutierrez NP. Message was sent to our schedulers to arrange. Present on Admission?: Yes Supervising Physician Co-Signing Physician Notes I have seen and examined the patient and discussed the management with MELISSA Markham. 54 yo fm with a history of acute hepatitis thought to be from alcohol, though additional viral serologies pending. Remains jaundiced, alert and oriented, abd - soft nt nd +bs Labs show ast/alt in 2:1 ratio, persistently elevated tb and inr though relatively stable in terms of the degree of elevation Vague abdominal pain without fevers, chills Cultures all negative Would start Prednisolone and continue for 28 days Alcohol cessation. Outpatient GI follow-up with referring provider. Consider outpt eus for MRCP finding. GI will sign off. Subjective Ms. Sheyla Melton is a 54 yr old female admitted for jaundice. Following for ETOH hepatitis. Imaging w/o bile duct obstruction. Today: AAO LFTs stable: T TIli 15.9, D Bili 12.5, AST 110, ALT 55, Alk Phos 247. -c/o diffuse mid abdomen discomfort but states has been present for at least several days, worse after eating but still able to eat. -diarrhea 4-5 loose brown BMs/day. C-diff (-). Able to ambulate in her room. Review of Systems Review of Systems: ROS: Gen: Denies weakness, fevers, weight loss; minimally unstable on ambulation - improving Eyes: + yellow eyes, no eye pain, no recent vision changes Resp: No SOB, no cough Cardio: No palpitations/irregular beats, no chest pain GI: + abdominal discomfort after eating - See HPI, no nausea/vomiting : Denies pain on urination Skin: + jaundice, itching or new rashes Physical Exam Constitutional: WD/WN, vitals as above + thin with mild ascites Eyes: PERRL + icterus ENMT: external ear and nose normal, oropharynx normal Neck: trachea midline, no thyromegaly Respiratory: normal respiratory effort, lungs clear to auscultation Cardiovascular: RRR, no murmur, no edema Gastrointestinal (Abdomen): Percussion/Palpation: + abdomen tender (mild, bilat lower abdomen and periumbilical) and abdomen soft Musculoskeletal: no cyanosis or clubbing, extremities motor strength 5/5 Skin: + jaundice Neurologic: PERRL, EOMI, accommodation nl, no face palsy, no dysarthria Psychiatric: A+Ox3, euthymic affect Lymphatic: no cervical or axillary lymphadenopathy Results & Data Vital Signs (Past 12 Hours) Vital Signs Temp Pulse Pulse Resp BP Pulse Ox 07/01/19 12:14 36.7 C 92 H 18 94/59 L 92 07/01/19 08:02 36.6 C 94 H 18 97/62 L 91 07/01/19 07:21 84 07/01/19 03:33 37.1 C 90 19 108/68 91 Diagnostic Findings MRI 06/29/19: 1. Mildly distended gallbladder with borderline gallbladder wall thickening and pericholecystic fluid. No calculi identified 2. Small amounts of peripancreatic retroperitoneal and periportal fluid. Correlation with pancreatic enzymes is recommended 3. No evidence of biliary or pancreatic ductal dilatation 4. Subtle linear filling defect within the common bile duct. This is of uncertain significance. This is not felt to represent a calculus. 5. Hepatic steatosis US 06/28/19: 1. Hepatomegaly and severe hepatic steatosis. 2. No shadowing gallstones are identified. 3. The gallbladder is distended, and the gallbladder wall is thickened and edematous. A sonographic Mejia's sign is reportedly absent. The gallbladder findings may simply be related to hepatocellular disease. Findings are equivocal for acute cholecystitis which is not excluded. Clinical correlation will be essential. Nuclear hepatobiliary scan could be considered for further assessment and to assess for cystic duct obstruction. 4. An indeterminant linear echogenic structure is identified within the common bile duct. This is not consistent with choledocholithiasis. Correlate clinically for history of previous instrumentation.
[2019-07-01] MEDS: prednisoLONE SYRUP 15 MG/5 ML BTL PO SCH (14:43)
[2019-07-01] MEDS ORDERED: prednisoLONE SYRUP 15 MG/5 ML BTL PO ONE (15:30)
--- NOTE | 2019-07-01 19:12 | Hospitalist Progress Note ---
Date of Service July 01, 2019 Assessment & Plan (1) Hyperbilirubinemia: suspected Alcoholic Hepatitis Patient with history of alcoholism presenting with direct bilirubinemia, LFT elevation Today total bilirubin 15 MRCP: No signs of obstruction GI service consulted Presentation felt to be secondary to alcoholic hepatitis given N-acetylcysteine protocol Prednisone today Monitor response Allergies for viral and autoimmune hepatitis pending Continue to trend LFT levels Diet ordered counseled on Alcohol cessation (2) Lactic acidosis: POC lactic acid elevated at 4.14, repeat 2.73 with fluids -In setting of dehydration, transaminitis -Afebrile, no leukocytosis, no abdominal pain - Blood and urine cultures negative Given IV fluids, lactic acid level normalized (3) Hypokalemia: Potassium initially 2.7 in setting of dehydration, poor nutrition replaced Potassium 3.6 (4) Hypomagnesemia: Initial Mg 1.2 -Replaced in ED resolved (5) Abnormal urinalysis: UA with nitrites and 1+ leuk esterase -No urinary symptoms or leukocytosis -Urine culture negative (6) Prolonged QT interval: QTc prolonged at 537 ms -Avoid prolonging agents Improved, QT 482 DVT Ppx: SCDs for now Code status: FULL PCP: Vane Devlin Dispo: Admitted to telemetry. Plan to return home once medically stable. Subjective Follow-up for hyperbilirubinemia Resting in bed, comfortable, is negative States that she feels okay overall today, main symptom is bloatedness Denies nausea vomiting, fevers or chills, abdominal pain or cramping BMs overnight, today none Denies other symptoms Review of Systems Review of Systems: All systems reviewed & are unremarkable except as noted in HPI & below Physical Exam Physical Exam: General- oriented x 3, not in distress, speaks in sentences with no effort or accessory muscle use Eyes-positive icterus Neck- no JVD Lungs- clear breath sounds bilaterally Heart- normal rate, regular rhythm; no murmurs Abdomen- normal bowel sounds, nondistended, soft, nontender Extremities- no pretibial edema, no calf tenderness Neuro- alert, oriented x 3; no gross focal neurologic deficits Skin- warm & dry, positive jaundice Results & Data Vital Signs (Past 12 Hours) Vital Signs Temp Pulse Pulse Resp BP Pulse Ox 07/01/19 15:44 36.4 C L 92 H 20 111/76 93 07/01/19 12:14 36.7 C 92 H 18 94/59 L 92 07/01/19 08:02 36.6 C 94 H 18 97/62 L 91 07/01/19 07:21 84 Laboratory Results Laboratory Results - last 24 hr 07/01/19 07/01/19 05:24 05:24 Sodium 140 Potassium 3.6 D Chloride 111 H Carbon Dioxide 20 L Anion Gap 9.0 BUN 1 L Creatinine 0.56 L Est Cr Clr Drug Dosing 114.5 Est GFR ( Amer) 121.7 Est GFR (Non-Af Amer) 105.0 BUN/Creatinine Ratio 2.1 L Glucose 102 H Calcium 7.3 L Magnesium 1.4 L Total Bilirubin 15.9 H Direct Bilirubin 12.5 H AST 110 H ALT 55 Alkaline Phosphatase 247 H Total Protein 4.6 L Albumin 1.9 L
[2019-07-02] MEDS: LOPERAMIDE HCL 2 MG CAP PO PRN (04:41)
[2019-07-02] MEDS: D5NSS + 20MEQ KCL 20 MEQ/1,000 ML BAG IV SCH (04:43)
[2019-07-02 07:18] LABS: Alanine Aminotransferase 60 U/L (12-78); Alkaline Phosphatase 283 U/L (45-117); Aspartate Aminotransferase 135 U/L (15-37); Bilirubin,Total 17.5 mg/dl (0.2-1); Blood Urea Nitrogen < 1 mg/dl (7-18); Calcium 7.7 mg/dl (8.5-10.1); Carbon Dioxide 20 mmol/L (21-32); Chloride 111 mmol/L (98-107); Creatinine Clr Calc Pharmacy 114.5 ml/min; Est GFR (African American) 121.7; Glucose 130 mg/dl (70-99); Magnesium 1.7 mg/dl (1.8-2.4); Potassium 4.5 mmol/L (3.5-5.1); Sodium 137 mmol/L (136-145)
[2019-07-02 08:37] LABS: INR 1.7 (0.9-1.1); Prothrombin Time 16.9 Seconds (9.0-12.0)
[2019-07-02] MEDS: NICOTINE 14 MG/24 HR PATCH TD SCH (08:42)
[2019-07-02] MEDS: prednisoLONE SYRUP 15 MG/5 ML BTL PO SCH (08:42)
[2019-07-02] MEDS: MAGNESIUM OXIDE 400 MG TAB PO SCH ×2 (12:25→21:04)
--- NOTE | 2019-07-02 13:23 | Ultrasound Report ---
US abdomen ltd ascites CLINICAL HISTORY: Liver failure. Evaluate for ascites COMPARISON STUDY: MRCP dated 06/29/2019 FINDINGS: The 4 quadrant survey study was performed. No ascites was visualized. IMPRESSION: No evidence of abdominal or pelvic ascites. Electronically signed by: Bi Hebert M.D. 07/02/2019 1:21 PM
--- NOTE | 2019-07-02 14:47 | Hospitalist Progress Note ---
Date of Service July 02, 2019 Assessment & Plan (1) Hyperbilirubinemia: suspected Alcoholic Hepatitis Patient with history of alcoholism presenting with direct bilirubinemia, LFT elevation Today total bilirubin is up to 17 MRCP: No signs of obstruction GI service consulted Presentation felt to be secondary to alcoholic hepatitis given N-acetylcysteine protocol Prednisone 40 mg po started, Day #2 continue to monitor closely Abdominal US: no ascited Allergies for viral and autoimmune hepatitis pending Hepatitis C negative counseled on Alcohol cessation (2) Lactic acidosis: POC lactic acid elevated at 4.14, repeat 2.73 with fluids -In setting of dehydration, transaminitis -Afebrile, no leukocytosis, no abdominal pain - Blood and urine cultures negative Given IV fluids, lactic acid level normalized (3) Hypokalemia: Potassium initially 2.7 in setting of dehydration, poor nutrition replaced (4) Hypomagnesemia: Initial Mg 1.2 -Replaced in ED resolved (5) Abnormal urinalysis: UA with nitrites and 1+ leuk esterase -No urinary symptoms or leukocytosis -Urine culture negative (6) Prolonged QT interval: QTc prolonged at 537 ms -Avoid prolonging agents Improved, QT 482 DVT Ppx: SCDs for now INR 1,7 Code status: FULL PCP: Vane Devlin Dispo: Admitted to telemetry. Plan to return home once medically stable. Subjective ff up for alcoholic hepatitis seen resting in bed, comfortable States improvement after having breakfast States she feels bloated again after breakfast Denies abdominal pain, nausea, fevers or chills Headache, dizziness, shortness of breath, chest pain Denies other symptoms Review of Systems Review of Systems: All systems reviewed & are unremarkable except as noted in HPI & below Physical Exam Physical Exam: General- oriented x 3, not in distress, speaks in sentences with no effort or accessory muscle use Eyes- (+) icterus Neck- no JVD Lungs- clear breath sounds bilaterally Heart- normal rate, regular rhythm; no murmurs Abdomen- normal bowel sounds, nondistended, soft, nontender Extremities- no pretibial edema, no calf tenderness Neuro- alert, oriented x 3; no gross focal neurologic deficits Skin- warm & dry; positive jaundice Results & Data Vital Signs (Past 12 Hours) Vital Signs Temp Pulse Resp BP Pulse Ox 07/02/19 11:28 36.8 C 82 16 130/84 94 07/02/19 08:02 37.0 C 82 17 107/70 93 07/02/19 04:00 36.5 C 86 17 128/83 92 Laboratory Results Laboratory Results - last 24 hr 07/02/19 07/02/19 05:40 07:57 PT 16.9 H INR 1.7 H Sodium 137 Potassium 4.5 D Chloride 111 H Carbon Dioxide 20 L Anion Gap 6.0 BUN < 1 L Creatinine 0.56 L Est Cr Clr Drug Dosing 114.5 Est GFR ( Amer) 121.7 Est GFR (Non-Af Amer) 105.0 BUN/Creatinine Ratio TNP Glucose 130 H Calcium 7.7 L Magnesium 1.7 L Total Bilirubin 17.5 H Direct Bilirubin 13.0 H AST 135 H ALT 60 Alkaline Phosphatase 283 H Total Protein 5.0 L Albumin 2.0 L
[2019-07-03 06:49] LABS: Albumin Level 1.9 gm/dl (3.4-5.0); BUN Creatinine Ratio 5.7 (10-20); Bilirubin,Total 13.1 mg/dl (0.2-1); Calcium 8.2 mg/dl (8.5-10.1); Creatinine Clr Calc Pharmacy 149.1 ml/min; Est GFR (African American) 132.7; Est GFR (Non-African American) 114.5; Magnesium 1.8 mg/dl (1.8-2.4); Potassium 3.9 mmol/L (3.5-5.1); Total Protein 4.6 gm/dl (6.4-8.2)
[2019-07-03 06:57] LABS: Bilirubin Direct 9.9 mg/dl (0-0.2)
[2019-07-03] MEDS: NICOTINE 14 MG/24 HR PATCH TD SCH (08:21)
[2019-07-03] MEDS: prednisoLONE SYRUP 15 MG/5 ML BTL PO SCH (08:21)
[2019-07-03] MEDS: MAGNESIUM OXIDE 400 MG TAB PO SCH ×2 (08:21→20:17)
--- NOTE | 2019-07-03 11:03 | Hospitalist Progress Note ---
Date of Service July 03, 2019 Assessment & Plan (1) Hyperbilirubinemia: suspected Alcoholic Hepatitis Patient with history of alcoholism presenting with direct bilirubinemia, LFT elevation MRCP: No signs of obstruction Abdominal US: no ascites GI service consulted Presentation felt to be secondary to alcoholic hepatitis given N-acetylcysteine protocol Prednisone 40 mg po started, Day #3 Bilirubin improving continue Prednisone continue to monitor closely Allergies for viral and autoimmune hepatitis pending Hepatitis C negative counseled on Alcohol cessation (2) Lactic acidosis: POC lactic acid elevated at 4.14, repeat 2.73 with fluids -In setting of dehydration, transaminitis -Afebrile, no leukocytosis, no abdominal pain - Blood and urine cultures negative Given IV fluids, lactic acid level normalized (3) Hypokalemia: Potassium initially 2.7 in setting of dehydration, poor nutrition replaced (4) Hypomagnesemia: Initial Mg 1.2 -Replaced in ED resolved (5) Abnormal urinalysis: UA with nitrites and 1+ leuk esterase -No urinary symptoms or leukocytosis -Urine culture negative (6) Prolonged QT interval: QTc prolonged at 537 ms -Avoid prolonging agents Improved, QT 482 DVT Ppx: SCDs for now INR 1.7 Code status: FULL PCP: Vane Devlin Dispo: Admitted to telemetry. Plan to return home once medically stable. Subjective ff up for alcoholic hepatitis seen resting in bed, comfortable , in good spirits less bloating today no abdominal pain, nausea had some loose stools yesterday no fever/chills, headache, dyspnea, chest pain no other symptoms Review of Systems Review of Systems: All systems reviewed & are unremarkable except as noted in HPI & below Physical Exam Physical Exam: General- oriented x 3, not in distress, speaks in sentences with no effort or accessory muscle use Eyes- (+) icterus Neck- no JVD Lungs- clear breath sounds bilaterally Heart- normal rate, regular rhythm; no murmurs Abdomen- normal bowel sounds, nondistended, soft, nontender Extremities- no pretibial edema, no calf tenderness Neuro- alert, oriented x 3; no gross focal neurologic deficits Skin- warm & dry (+) jaundice Results & Data Vital Signs (Past 12 Hours) Vital Signs Temp Pulse Pulse Resp BP Pulse Ox 07/03/19 09:01 75 07/03/19 07:32 36.4 C L 77 16 120/79 92 07/03/19 03:29 36.5 C 82 16 128/82 98 07/02/19 23:01 36.8 C 80 16 130/87 94 Laboratory Results Laboratory Results - last 24 hr 07/03/19 05:33 Sodium 140 Potassium 3.9 Chloride 111 H Carbon Dioxide 23 Anion Gap 6.0 BUN 2 L Creatinine 0.43 L Est Cr Clr Drug Dosing 149.1 Est GFR ( Amer) 132.7 Est GFR (Non-Af Amer) 114.5 BUN/Creatinine Ratio 5.7 L Glucose 70 Calcium 8.2 L Magnesium 1.8 Total Bilirubin 13.1 H Direct Bilirubin 9.9 H AST 133 H ALT 55 Alkaline Phosphatase 264 H Total Protein 4.6 L Albumin 1.9 L
--- NOTE | 2019-07-03 16:19 | Gastroenterology Progress Note ---
Date of Service July 03, 2019 Assessment & Plan (1) Alcoholic hepatitis: (2) Jaundice: Bilirubin continues to improve Continue Prednisolone for 28 days Abstain from all alcohol Followup with [facility] as outpatient. Subjective I was asked to see the patient today by Dr. Zimmerman, secondary to elevated bilirubin. Patient was resting comfortably in bed. States her appetite has improved. No abdominal pain, nausea or vomiting overnight. States she is having normal BM's now. No further complaints. Physical Exam Constitutional: Chronic ill-appearing, notable jaundice Respiratory: normal respiratory effort, lungs clear to auscultation Cardiovascular: RRR, no murmur, no edema Gastrointestinal (Abdomen): normal bowel sounds, soft, nontender, no hepatosplenomegaly No appreciable Hepatosplenomegaly Results & Data Vital Signs (Past 12 Hours) Vital Signs Temp Pulse Pulse Resp BP Pulse Ox 07/03/19 15:00 36.4 C L 82 20 124/83 93 07/03/19 11:43 36.6 C 75 18 104/69 96 07/03/19 09:01 75 07/03/19 07:32 36.4 C L 77 16 120/79 92 PG Care Time/CCT Total # of Minutes Spent Total Time Spent with Patient: Total time spent is greater than 50% in coordination of care (as documented) at patient's floor/unit and/or counseling patient:
[2019-07-04 06:47] LABS: Albumin Level 1.9 gm/dl (3.4-5.0); BUN Creatinine Ratio 10.3 (10-20); Bilirubin Direct 8.8 mg/dl (0-0.2); Creatinine Clr Calc Pharmacy 130.9 ml/min; Est GFR (African American) 127.1; Est GFR (Non-African American) 109.7; Magnesium 1.9 mg/dl (1.8-2.4); Potassium 3.3 mmol/L (3.5-5.1); Total Protein 4.9 gm/dl (6.4-8.2)
[2019-07-04] MEDS: MAGNESIUM OXIDE 400 MG TAB PO SCH (07:18)
[2019-07-04] MEDS: prednisoLONE SYRUP 15 MG/5 ML BTL PO SCH (07:18)
[2019-07-04] MEDS: NICOTINE 14 MG/24 HR PATCH TD SCH (07:19)
[2019-07-04] MEDS ORDERED: POTASSIUM CHLORIDE 10 MEQ TABCR PO ONE (13:45)
--- NOTE | 2019-07-04 13:56 | Hospitalist Progress Note ---
Date of Service July 04, 2019 Assessment & Plan (1) Hyperbilirubinemia: suspected Alcoholic Hepatitis Patient with history of alcoholism presenting with direct bilirubinemia, LFT elevation MRCP: No signs of obstruction Abdominal US: no ascites GI service consulted Presentation felt to be secondary to alcoholic hepatitis given N-acetylcysteine protocol Prednisone 40 mg po started, Day # 4 Bilirubin improving Total bilirubin improved from 17-11 Drug-eluting improved from 13-8 continue Prednisone 40 mg p.o. daily x25 days To complete 28 days of therapy continue to monitor closely Follow-up with GI clinic in 2 weeks Discussed with patient, advised not to drink any amount of alcohol, she verbalized understanding and agreement Allergies for viral and autoimmune hepatitis pending, please follow-up Hepatitis C negative (2) Lactic acidosis: POC lactic acid elevated at 4.14, repeat 2.73 with fluids -In setting of dehydration, transaminitis -Afebrile, no leukocytosis, no abdominal pain - Blood and urine cultures negative Given IV fluids, lactic acid level normalized (3) Hypokalemia: Potassium initially 2.7 in setting of dehydration, poor nutrition Potassium supplement ordered, repeat level as outpatient (4) Hypomagnesemia: Initial Mg 1.2 -Replaced in ED resolved (5) Abnormal urinalysis: UA with nitrites and 1+ leuk esterase -No urinary symptoms or leukocytosis -Urine culture negative (6) Prolonged QT interval: QTc prolonged at 537 ms -Avoid prolonging agents Improved, QT 482 DVT Ppx: SCDs for now INR 1.7 Code status: FULL PCP: Vane Devlin Dispo: Charge to home today Follow-up with primary care physician Dr. Young on Thursday, July 08, 2019 at 1:15 PM Follow-up with dielectric press operator Dr. Gallego in 1 to 2 weeks Subjective ff up for alcoholic hepatitis Seen on the right, comfortable, in good spirits States she feels fine overall No abdominal bloating, pain, nausea No diarrhea Has headache, chest pain, shortness of breath and palpitations, dizziness Ambulating in the room with no problems States she is ready would like to be discharged today Review of Systems Review of Systems: All systems reviewed & are unremarkable except as noted in HPI & below Physical Exam Physical Exam: General- oriented x 3, not in distress, speaks in sentences with no effort or accessory muscle use Eyes-icterus -improved Neck- no JVD Lungs- clear breath sounds bilaterally, no crackles, no wheezing Heart- normal rate, regular rhythm; no murmurs Abdomen- normal bowel sounds, nondistended, soft, nontender Extremities- no pretibial edema, no calf tenderness Neuro- alert, oriented x 3; no gross focal neurologic deficits Skin- warm & dry; mild jaundice Results & Data Vital Signs (Past 12 Hours) Vital Signs Temp Pulse Pulse Resp BP BP Pulse Ox 07/04/19 13:47 36.4 C L 76 19 134/84 134/84 91 07/04/19 11:37 36.4 C L 76 19 134/84 91 07/04/19 08:38 75 07/04/19 08:07 36.3 C L 72 16 124/82 92 07/04/19 03:40 36.7 C 74 16 134/84 93 Laboratory Results Laboratory Results - last 24 hr 07/04/19 05:39 Sodium 138 Potassium 3.3 L D Chloride 106 Carbon Dioxide 22 Anion Gap 10.0 BUN 5 L Creatinine 0.49 L Est Cr Clr Drug Dosing 130.9 Est GFR ( Amer) 127.1 Est GFR (Non-Af Amer) 109.7 BUN/Creatinine Ratio 10.3 Glucose 71 Calcium 8.0 L Magnesium 1.9 Total Bilirubin 11.0 H Direct Bilirubin 8.8 H AST 137 H ALT 60 Alkaline Phosphatase 275 H Total Protein 4.9 L Albumin 1.9 L
--- NOTE | 2019-07-04 14:45 | Discharge Summary ---
Date of Service July 04, 2019 Admission HPI Per Admitting Provider This is a 53yo F with a PMH of tobacco use, history of heavy alcohol use, celiac disease and other medical problems listed below who presents with jaundice and abnormal labwork. Patient endorses malaise for the past 2 months along with fatigue, chills and low grade fever for the past few weeks. Family noted jaundice early last week and patient was evaluated by PCP. Labwork from 06/24/19 revealed elevated tbili, AST, ALT and Alk phos. Anti-smooth muscle ab and Tylenol level negative. Acute hepatitis A, B and C negative. Ceruloplasmin elevated at 66. CT abd from 06/07/19 without acute abnormalities and presence of marked hepatic steatosis. In GI follow up today, patient was noted to be generally weak and hypotensive at 70/50. Still feeling fatigued with decreased appetite. 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 Still has gall bladder. Did have sinus drainage issues over the past few months and was "throwing up phlegm" but denies nausea, vomiting or abdominal pain. Completed courses of Clarithromycin, doxycycline and clindamycin in April and May. Started to take oregano oil supplements a few weeks ago and sinus symptoms have resolved. Also takes Milk Thistle. H/o heavy alcohol use over the past year (unable to quantify vodka amount in ounces or drinks). Denies Tylenol use. Smokes 1/2 ppd. Currently, patient feels weak and fatigued. BP initially 92/68 but improved to 121/78 with fluids. Potassium 2.7, Magnesium 1.2, POC lactate 4.14 but improved to 2.73 after fluids. Tbili 18.7, AST of 187, ALT of 88 and alk phos 462. UA with nitrites and 1+ leuk esterase. Blood and urine cultures pending. GB ultrasound pending. Denies any fever, chills, lightheadedness, chest pain, SOB, nausea, vomiting, abd pain, dysuria, hematuria, diarrhea, constipation, lm colored stools, melena or hematochezia. Admission Exam Per Admitting Provider General Appearance: WD/WN, no apparent distress, + jaundice Head: normocephalic, atraumatic Eyes: scleral icterus, PERRL, EOMI ENT: hearing grossly normal, pharynx normal (moist mucous membranes) Neck: supple, no JVD, no adenopathy Respiratory/Chest: lungs clear to auscultation. No wheezes, rales or rhonchi. No respiratory distress or accessory muscle use Cardiovascular: regular rate, rhythm, no murmur, normal peripheral pulses, no BLE edema Abdomen/GI: normal bowel sounds, soft with mild distention, non-tender to palpation Extremities/Musculoskelatal: normal inspection, no calf tenderness, normal capillary refill Neurologic/Psych: alert, normal mood/affect, oriented x 3 Skin: jaundiced, warm/dry Principal Diagnosis ALCOHOLIC HEPATITIS Discharge Exam General- oriented x 3, not in distress, speaks in sentences with no effort or accessory muscle use Eyes-icterus -improved Neck- no JVD Lungs- clear breath sounds bilaterally, no crackles, no wheezing Heart- normal rate, regular rhythm; no murmurs Abdomen- normal bowel sounds, nondistended, soft, nontender Extremities- no pretibial edema, no calf tenderness Neuro- alert, oriented x 3; no gross focal neurologic deficits Skin- warm & dry; mild jaundice Discharge Data Allergies Allergy/AdvReac Type Severity Reaction Status Date / Time gluten Allergy Unknown Hives Verified 06/28/19 17:00 Penicillins Allergy Unknown Unknown Verified 06/28/19 17:00 prednisone AdvReac Intermediate Nausea,vomiting Verified 06/28/19 17:00 and diarrhea Consultations 06/28/19 17:23 ED Decision to Admit Stat 06/28/19 23:00 Consult Gastroenterology Routine Ordered Studies 06/28/19 17:27 US gallbladder Stat ULTRASOUND RIGHT UPPER QUADRANT ABDOMEN CLINICAL HISTORY: Liver failure. COMPARISON STUDY: No priors. TECHNIQUE: Real-time, grayscale, and color flow sonography of the right upper quadrant of the abdomen was performed. Images are reviewed in the transverse and longitudinal planes. FINDINGS: Liver: The liver is enlarged, measuring over 20 cm in length. The liver demonstrates heterogeneously increased echotexture consistent with severe hepatic steatosis. Note that this degrades acoustic penetration of the liver. There is no intrahepatic biliary ductal dilatation. The main portal vein is patent. Gallbladder: The gallbladder is distended. No shadowing gallstones are identified. The gallbladder wall is thickened and edematous, measuring up to 6 mm. No pericholecystic fluid is identified. A sonographic Mejia's sign is reportedly absent. The common bile duct measures up to 0.7 cm in diameter. A linear echogenic structure is suggested within the common bile duct. Pancreas: Visualized portions of the pancreatic head and body are normal in appearance. The splenic vein is patent. Right kidney: Survey images of the right kidney demonstrate normal size and echotexture. There is no hydronephrosis. Ascites: None. IMPRESSION: 1. Hepatomegaly and severe hepatic steatosis. 2. No shadowing gallstones are identified. 3. The gallbladder is distended, and the gallbladder wall is thickened and edematous. A sonographic Mejia's sign is reportedly absent. The gallbladder findings may simply be related to hepatocellular disease. Findings are equivocal for acute cholecystitis which is not excluded. Clinical correlation will be essential. Nuclear hepatobiliary scan could be considered for further assessment and to assess for cystic duct obstruction. 4. An indeterminant linear echogenic structure is identified within the common bile duct. This is not consistent with choledocholithiasis. Correlate clinically for history of previous instrumentation. 06/29/19 00:06 MR MRCP Urgent MR MRCP CLINICAL HISTORY: obstructive jaundice abdominal pain, abnormal ultrasound. COMPARISON STUDY: Biliary ultrasound dated 06/28/2019 FINDINGS: There is hepatic steatosis. The gallbladder is mildly distended. There is pericholecystic fluid present. No gallstones are visualized. There is a subtle linear filling defect within the common bile duct corresponding to the ultrasound findings. This is not felt to represent a calculus. There is no ductal dilatation. Pancreatic duct is nondilated. There is mild perinephric fluid. There is mild peripancreatic fluid. There is mild retroperitoneal fluid present. There is mild periportal fluid. Correlation with pancreatic enzymes is recommended. IMPRESSION: 1. Mildly distended gallbladder with borderline gallbladder wall thickening and pericholecystic fluid. No calculi identified 2. Small amounts of peripancreatic retroperitoneal and periportal fluid. Correlation with pancreatic enzymes is recommended 3. No evidence of biliary or pancreatic ductal dilatation 4. Subtle linear filling defect within the common bile duct. This is of uncertain significance. This is not felt to represent a calculus. 5. Hepatic steatosis 07/02/19 09:10 US abdomen ltd ascites Urgent S abdomen ltd ascites CLINICAL HISTORY: Liver failure. Evaluate for ascites COMPARISON STUDY: MRCP dated 06/29/2019 FINDINGS: The 4 quadrant survey study was performed. No ascites was visualized. IMPRESSION: No evidence of abdominal or pelvic ascites. Hospital Course (1) Hyperbilirubinemia: suspected Alcoholic Hepatitis Patient with history of alcoholism presenting with direct bilirubinemia, LFT elevation MRCP: No signs of obstruction Abdominal US: no ascites GI service consulted Presentation felt to be secondary to alcoholic hepatitis given N-acetylcysteine protocol Prednisone 40 mg po started, Day # 4 on discharge day Bilirubin improving Total bilirubin improved from 17 to 11 Drug-eluting improved from 13 to 8 continue Prednisone 40 mg p.o. daily x25 days To complete 28 days of therapy continue to monitor closely Follow-up with GI clinic in 2 weeks Discussed with patient, advised not to drink any amount of alcohol, she verbalized understanding and agreement Allergies for viral and autoimmune hepatitis pending, please follow-up Hepatitis C negative (2) Lactic acidosis: POC lactic acid elevated at 4.14, repeat 2.73 with fluids -In setting of dehydration, transaminitis -Afebrile, no leukocytosis, no abdominal pain - Blood and urine cultures negative Given IV fluids, lactic acid level normalized (3) Hypokalemia: Potassium initially 2.7 in setting of dehydration, poor nutrition Potassium supplement ordered, repeat level as outpatient (4) Hypomagnesemia: Mg 1.2 resolved (5) Abnormal urinalysis: UA with nitrites and 1+ leuk esterase -No urinary symptoms or leukocytosis -Urine culture negative (6) Prolonged QT interval: QTc prolonged at 537 ms -Avoid prolonging agents Improved, QT 482 DVT Ppx: SCDs for now INR 1.7 Code status: FULL PCP: Vane Devlin Dispo: Disharge to home today Follow-up with primary care physician Dr. Young on Thursday, July 08, 2019 at 1:15 PM Follow-up with leather fitter Dr. Gallego in 1 to 2 weeks Total Time Total Time Spent Total Time Spent (In Minutes): 45 minutes Discharge Plan Discharge Items Patient Disposition: Home - Self-Care Reason For Visit: OBSTRUCTIVE JAUNDICE Discharge Diagnosis: ALCOHOLIC HEPATITIS Discharge Goals: Diagnostic testing and Therapeutic intervention Activity: As commented below Activity Comment: Resume activity gradually, always ambulate carefully Lifting: Wait until after follow-up appointment Exercise/Sports: Wait until after follow-up appointment Driving/Machine Use Comment: No driving until reevaluated by primary care physician Non-emergency contact: Primary Care Provider and [facility] Call non-emergency contact if: you have any medication questions, your symptoms worsen and you have a fever Follow-up/Referrals: Eryn Devlin DO [Primary Care Provider] - 07/08/19 1:15 pm Jalyn Gallego M.D. [Hospitalist] - (Please schedule an appointment in 1 to 2 weeks after discharge from the hospital) Diet: Heart Healthy Addtl Provider Instructions: Your new medications: Prednisone 40 mg by mouth daily for 25 more days Potassium supplement daily x7 days Nicotine patch daily x14 days Always take prednisone with a full stomach. Inform your doctor if you have any GI upset. Primary care physician or return to the emergency room immediately if with worsening of symptoms, Worsening of the abdomen of the skin or eyes, darkening of the urine, abdominal pain, nausea vomiting, headaches, fevers or chills, confusion. No alcohol, no Tylenol. No smoking Always talk to your primary care doctor first before starting any new medication. Prescriptions: New nicotine 7 mg/24 hr Patch 24 Hour 14 mg transdermal QAM 14 Days Qty: 14 RF: 0 prednisolone 15 mg/5 mL Solution 13.5 ml PO DAILY 25 Days Qty: 337.5 RF: 0 potassium chloride 20 mEq tablet extended release 20 meq PO DAILY Qty: 7 RF: 0 Continued pyridoxine (vitamin B6) [Vitamin B-6] 100 mg Tablet 100 mg PO DAILY RF: 0 fluticasone propionate [Flonase Allergy Relief] 50 mcg/actuation Guild,Suspension 2 spray INTRANASAL DAILY PRN (Reason: Allergy Symptoms) RF: 0 loratadine [Claritin] 10 mg Tablet 10 mg PO DAILY PRN (Reason: Allergy Symptoms) RF: 0 oregano oil 1,500 mg Capsule PO DAILY RF: 0 Stand-Alone Forms: [facility] Discharge Orders: Discharge Order (Routine); Ordered 07/04/19 Ordered By: Des Zimmerman Admission Data Admit Date/Time: 06/28/19 19:28 Attending Provider: Des Zimmerman Admit Provider: Carlos Briggs Primary Care Provider: Eryn Devlin Other Providers: Glenn Madrigal ; Carlos Briggs Service: Telemetry Other Interventions: Discharge Summary Assessment (RN) Last Done: 07/04/19 13:47
[2019-07-06 14:31] LABS: Anti Nuclear Antibody Screen NEGATIVE (NEGATIVE); CMV IgM Antibody <30.00 Au/mL; Herpes Simplex Ab IgG-1 < 0.90 INDEX (< 0.90); Herpes Simplex Ab IgG-2 7.28 INDEX (< 0.90)
== END 2019-07-04 14:58 | disposition home or self-care (01) | DRG 433 ==
LOC: ED 15:43 → 2S 19:28 → SUATTDRO 19:28 → 2S 21:17

== ENCOUNTER 2024-01-10 20:11 | Inpatient (IN) ==
[2024-01-10] MEDS ORDERED: STAT IV/IM STA (20:46)
[2024-01-10] MEDS ORDERED: PANTOPRAZOLE BOLUS/DRIP IV STA (20:46)
--- NOTE | 2024-01-10 20:46 | Emergency Department Note ---
Impression & Plan Acute upper gastrointestinal bleeding, Hypokalemia, Hypomagnesemia, Hyperbilirubinemia, Transaminitis, Syncope ED Provider Note NAME: TRENT ROJO AGE: 58 SEX: F : 1965 ARRIVES VIA: Ambulance INFORMANT: Patient, ED PROVIDER(S): Mark Crooks MD CHIEF COMPLAINT: Syncope, hematemesis MEDICAL DECISION MAKING: Patient presents due to concern for syncope in the setting of hematemesis. IV was established 2 large bore IVs were ordered. The patient was ordered PPI bolus and drip as well as octreotide bolus and drip. Blood work showed a normal white count with hemoglobin 11.6. Platelet count is low at 56,000. Kidney function unremarkable but with electrolyte abnormalities including low sodium and potassium. Urine and serum electrolytes ordered in addition to osmolality. The patient was ordered repletion for hypomagnesemia and hypokalemia. The patient does have transaminitis with an elevated AST and ALT 155 and 54 with a bilirubin of 2.1. The patient did have an episode of dark bloody vomit. Given this concern with the patient's tachycardia and hypotension the patient was ordered 1 unit of uncrossed blood and 2 units on hold. I did speak with on-call general intern Dr. Madrigal to make him aware he stated that the patient will be taken first in the morning for EGD but if patient had worsening symptoms. Of note blood bank and [facility] that there were platelets that would if not use. I did ask the on-call general intern Dr. Madrigal if you would like her to receive platelets which he said yes to. Patient was ordered unit of platelets. I did speak with on-call hospitalist Dr. Arias and patient was admitted to the medicine service. Also did discuss patient's case with On-Call Gun Perforator Loader MELISSA Damon to make him aware. Patient has had improving vital signs. I did speak with the on-call hospitalist service and the patient was admitted to the medicine service. Critical Care: I have personally spent 95 minutes of critical care time in direct management of this patient. This includes bedside care, interpretation of diagnostic studies, and testing, discussion with consultants, patient, and family members, and other require inpatient management activities. This 95 minutes is in excess of all separately billable procedures. Discussion w/ other healthcare providers: Dr. Madrigal gastroenterology Dr. Arias [facility]Dr. Castañeda field coil winder Prior /Outside records reviewed: I reviewed a discharge summary from July 04, [address] Zimmerman. Patient does have a prior history of tobacco and alcohol use celiac's disease who had presented due to concern for jaundice and abnormal blood work. Patient did have elevated liver function testing at that time. Patient was also noted to have low blood pressure. Patient's presentation that time was thought secondary to alcoholic hepatitis and NAC protocol was initiated. Differential diagnosis: Diverticulitis, AVM, coagulopathy, colitis, inflammatory bowel disease, malignancy, esophagitis, peptic ulcer disease, variceal bleed, gastritis, fissure, hemorrhoids, as well as other pathologies. Diagnostics, as interpreted by me: ECG: Sinus tachycardia, rate of 112, normal FL and QRS, right axis deviation, T wave version in aVL no obvious ST elevations Cardiac monitoring: An order was placed for continuous cardiac monitoring. The monitor shows a rate of 95 with sinus rhythm. Patient was placed on pulse oximetry Medical decision rules: None Imaging studies: I informally interpreted the patient's I informally interpreted the patient's chest x-ray which does not show obvious pneumonia or pneumothorax with formal report to follow. HPI: Patient presents due to concern for syncope. The patient reportedly had gotten up and was going to walk to her desk in the bedroom when she passed out. The patient woke up soon thereafter only out about 10 or 15 seconds no reported seizure-like activity. The patient did have an episode of bloody emesis. Patient does not take any blood thinning medications but does have a prior history of alcohol use admits to drinking 3 shots of vodka today. The patient states that depending on the day she will drink anywhere from 1-4 shots daily. Patient denies any chest pains or shortness of breath. The patient did have some nausea but that seems to have improved. No significant abdominal pain. The patient did notice some dark stools yesterday. No bright red blood per rectum. Patient denies take any blood thinning medications and does not take any aspirin or Plavix. PAST MEDICAL HISTORY: See Below PAST SURGICAL HISTORY: See Below SOCIAL HISTORY: See Below HOME MEDICATIONS: See Below ALLERGIES: See Below VITALS: See Below PHYSICAL EXAMINATION: GENERAL: Wearing glasses, nontoxic EYE EXAM: Normal conjunctiva. PERRL, no anisocoria and EOM's grossly intact w/o pain. OROPHARYNX: Moist mucus membranes, grossly normal dentition. NECK: Trachea midline, no stridor. LUNGS: Clear to auscultation. Normal chest wall mechanics. HEART: Tachycardic and regular, no MRG. ABDOMEN: Abdomen soft, non-tender, no masses, no rebound or guarding. BACK: No CVA TTP. SKIN: No rashes and no bruising. UPPER EXTREMITIES: Upper extremities are grossly normal. LOWER EXTREMITIES: Grossly normal, no edema. NEURO EXAM: A&O x3, cranial nerves II-XII grossly intact, normal speech, moves all 4 extremities. Past Med/Surg History Medical History (Updated 01/11/24 @ 00:56 by Mark Crooks MD) Celiac disease Tobacco use Alcohol use Colposcopy (06/23/13) Surgical History H/O eye surgery Family History Other Prostate cancer Stroke Social History Smoking Status: Current every day smoker Tobacco Type: Cigarettes Second Hand Exposure: No; Do You Dip or Chew Tobacco: No; Hx Alcohol Use: No Hx Substance Use: No Preferred Language: Italian Communication Ability: Effective Pyrotechnic Mixer Required: No Beliefs That Will Affect Care: None marital status: Single Current Living Situation: Significant Other Current Living Situation Comment: [facility] current occupational status: unemployed Feels Safe at Home: Yes Assistive Devices: None Allergies Allergies Allergy/AdvReac Type Severity Reaction Status Date / Time gluten Allergy Unknown Hives Verified 06/28/19 17:00 Penicillins Allergy Unknown Unknown Verified 06/28/19 17:00 prednisone AdvReac Intermediate Nausea,vomiting Verified 06/28/19 17:00 and diarrhea Home Meds Home Medications Medication Instructions Recorded Confirmed fluticasone propionate 50 2 spray intranasal DAILY PRN 06/28/19 01/10/24 mcg/actuation nasal Allergy Symptoms spray,suspension (Flonase Allergy Relief) oregano oil 1,500 mg capsule 0 mg PO DAILY 06/28/19 01/10/24 pyridoxine (vitamin B6) 100 mg 100 mg PO DAILY 06/28/19 01/10/24 tablet (Vitamin B-6) Results & Data (ED) Vital Signs Vital Signs - 24 hr 01/10/24 20:19 01/10/24 20:20 01/10/24 20:38 Temperature 36.7 C Temperature Source Oral Pulse Rate 115 H 117 H Pulse Rate from SpO2 Sensor Respiratory Rate 18 19 Respiratory Effort / Characteristics Non-Labored Respiratory Depth Normal Blood Pressure 123/76 Blood Pressure Mean 91 Pulse Oximetry 98 93 Oxygen Delivery Method Room Air Room Air Room Air Oxygen Flow Rate Sepsis Recent Fever Within 48 Hours No Sepsis New/Unexplained Change in Mental Status No Sepsis Action Taken by Nursing No Action Required 01/10/24 20:40 01/10/24 20:41 01/10/24 20:45 Temperature Temperature Source Pulse Rate 114 H 117 H 119 H Pulse Rate from SpO2 Sensor 107 H 106 H Respiratory Rate 16 18 Respiratory Effort / Characteristics Respiratory Depth Blood Pressure 89/69 L Blood Pressure Mean 75 Pulse Oximetry 91 90 Oxygen Delivery Method Oxygen Flow Rate Sepsis Recent Fever Within 48 Hours Sepsis New/Unexplained Change in Mental Status Sepsis Action Taken by Nursing 01/10/24 20:45 01/10/24 20:50 01/10/24 21:00 Temperature Temperature Source Pulse Rate 113 H 112 H Pulse Rate from SpO2 Sensor 102 H 114 H Respiratory Rate 17 23 Respiratory Effort / Characteristics Respiratory Depth Blood Pressure 94/75 L Blood Pressure Mean 80 Pulse Oximetry 92 92 Oxygen Delivery Method Oxygen Flow Rate Sepsis Recent Fever Within 48 Hours Sepsis New/Unexplained Change in Mental Status Sepsis Action Taken by Nursing 01/10/24 21:00 01/10/24 21:10 01/10/24 21:15 Temperature Temperature Source Pulse Rate 112 H Pulse Rate from SpO2 Sensor 108 H Respiratory Rate 23 Respiratory Effort / Characteristics Respiratory Depth Blood Pressure 97/68 L 100/71 Blood Pressure Mean 73 76 Pulse Oximetry 92 94 Oxygen Delivery Method Oxygen Flow Rate Sepsis Recent Fever Within 48 Hours Sepsis New/Unexplained Change in Mental Status Sepsis Action Taken by Nursing 01/10/24 21:15 01/10/24 21:20 01/10/24 21:30 Temperature Temperature Source Pulse Rate Pulse Rate from SpO2 Sensor 97 H 103 H 101 H Respiratory Rate Respiratory Effort / Characteristics Respiratory Depth Blood Pressure Blood Pressure Mean Pulse Oximetry 93 92 93 Oxygen Delivery Method Oxygen Flow Rate Sepsis Recent Fever Within 48 Hours Sepsis New/Unexplained Change in Mental Status Sepsis Action Taken by Nursing 01/10/24 21:40 01/10/24 21:50 01/10/24 21:55 Temperature Temperature Source Pulse Rate Pulse Rate from SpO2 Sensor 108 H 93 H 102 H Respiratory Rate Respiratory Effort / Characteristics Respiratory Depth Blood Pressure Blood Pressure Mean Pulse Oximetry 93 94 93 Oxygen Delivery Method Oxygen Flow Rate Sepsis Recent Fever Within 48 Hours Sepsis New/Unexplained Change in Mental Status Sepsis Action Taken by Nursing 01/10/24 21:55 01/10/24 22:00 01/10/24 22:05 Temperature 36.7 C Temperature Source Oral Pulse Rate 105 H Pulse Rate from SpO2 Sensor 103 H Respiratory Rate 13 Respiratory Effort / Characteristics Respiratory Depth Blood Pressure 107/80 107/70 Blood Pressure Mean 89 82 Pulse Oximetry 93 93 Oxygen Delivery Method Oxygen Flow Rate Sepsis Recent Fever Within 48 Hours Sepsis New/Unexplained Change in Mental Status Sepsis Action Taken by Nursing 01/10/24 22:05 01/10/24 22:05 01/10/24 22:10 Temperature Temperature Source Pulse Rate 104 H Pulse Rate from SpO2 Sensor 106 H 102 H Respiratory Rate 16 Respiratory Effort / Characteristics Respiratory Depth Blood Pressure 107/70 Blood Pressure Mean 79 Pulse Oximetry 92 94 Oxygen Delivery Method Oxygen Flow Rate Sepsis Recent Fever Within 48 Hours Sepsis New/Unexplained Change in Mental Status Sepsis Action Taken by Nursing 01/10/24 22:15 01/10/24 22:15 01/10/24 22:19 Temperature Temperature Source Pulse Rate 104 H 99 H Pulse Rate from SpO2 Sensor 106 H 100 H Respiratory Rate 21 14 Respiratory Effort / Characteristics Respiratory Depth Blood Pressure 99/73 L Blood Pressure Mean 81 Pulse Oximetry 92 93 Oxygen Delivery Method Oxygen Flow Rate Sepsis Recent Fever Within 48 Hours Sepsis New/Unexplained Change in Mental Status Sepsis Action Taken by Nursing 01/10/24 22:19 01/10/24 22:20 01/10/24 22:20 Temperature 36.7 C Temperature Source Oral Pulse Rate 103 H 100 H Pulse Rate from SpO2 Sensor 100 H Respiratory Rate 19 19 Respiratory Effort / Characteristics Respiratory Depth Blood Pressure 92/62 L 92/62 L Blood Pressure Mean 75 72 Pulse Oximetry 93 94 Oxygen Delivery Method Oxygen Flow Rate Sepsis Recent Fever Within 48 Hours Sepsis New/Unexplained Change in Mental Status Sepsis Action Taken by Nursing 01/10/24 22:30 01/10/24 22:31 01/10/24 22:31 Temperature Temperature Source Pulse Rate 109 H 111 H Pulse Rate from SpO2 Sensor 108 H 111 H Respiratory Rate 18 20 Respiratory Effort / Characteristics Respiratory Depth Blood Pressure 89/61 L Blood Pressure Mean 69 Pulse Oximetry 91 93 Oxygen Delivery Method Oxygen Flow Rate Sepsis Recent Fever Within 48 Hours Sepsis New/Unexplained Change in Mental Status Sepsis Action Taken by Nursing 01/10/24 22:34 01/10/24 22:34 01/10/24 22:35 Temperature 36.7 C Temperature Source Oral Pulse Rate 98 H 100 H Pulse Rate from SpO2 Sensor 100 H Respiratory Rate 16 19 Respiratory Effort / Characteristics Respiratory Depth Blood Pressure 76/63 L 76/63 L Blood Pressure Mean 69 67 Pulse Oximetry 93 93 Oxygen Delivery Method Oxygen Flow Rate Sepsis Recent Fever Within 48 Hours Sepsis New/Unexplained Change in Mental Status Sepsis Action Taken by Nursing 01/10/24 22:36 01/10/24 22:36 01/10/24 22:38 Temperature Temperature Source Pulse Rate 105 H Pulse Rate from SpO2 Sensor 104 H Respiratory Rate 19 Respiratory Effort / Characteristics Respiratory Depth Blood Pressure 79/64 L 96/61 L Blood Pressure Mean 70 74 Pulse Oximetry 92 Oxygen Delivery Method Oxygen Flow Rate Sepsis Recent Fever Within 48 Hours Sepsis New/Unexplained Change in Mental Status Sepsis Action Taken by Nursing 01/10/24 22:38 01/10/24 22:40 01/10/24 22:45 Temperature Temperature Source Pulse Rate 104 H 99 H 97 H Pulse Rate from SpO2 Sensor 104 H 99 H 97 H Respiratory Rate 18 18 13 Respiratory Effort / Characteristics Respiratory Depth Blood Pressure Blood Pressure Mean Pulse Oximetry 92 94 94 Oxygen Delivery Method Oxygen Flow Rate Sepsis Recent Fever Within 48 Hours Sepsis New/Unexplained Change in Mental Status Sepsis Action Taken by Nursing 01/10/24 22:45 01/10/24 22:50 01/10/24 23:00 Temperature Temperature Source Pulse Rate 95 H 94 H Pulse Rate from SpO2 Sensor 96 H 94 H Respiratory Rate 15 15 Respiratory Effort / Characteristics Respiratory Depth Blood Pressure 101/65 Blood Pressure Mean 69 Pulse Oximetry 94 91 Oxygen Delivery Method Oxygen Flow Rate Sepsis Recent Fever Within 48 Hours Sepsis New/Unexplained Change in Mental Status Sepsis Action Taken by Nursing 01/10/24 23:00 01/10/24 23:05 01/10/24 23:10 Temperature 36.8 C Temperature Source Oral Pulse Rate 94 H 90 88 Pulse Rate from SpO2 Sensor 88 Respiratory Rate 15 15 14 Respiratory Effort / Characteristics Respiratory Depth Blood Pressure 98/67 L 98/67 L Blood Pressure Mean 78 77 Pulse Oximetry 91 98 99 Oxygen Delivery Method Oxygen Flow Rate 3 Sepsis Recent Fever Within 48 Hours Sepsis New/Unexplained Change in Mental Status Sepsis Action Taken by Nursing 01/10/24 23:15 01/10/24 23:15 01/10/24 23:20 Temperature Temperature Source Pulse Rate 90 90 85 Pulse Rate from SpO2 Sensor 87 82 Respiratory Rate 15 15 15 Respiratory Effort / Characteristics Respiratory Depth Blood Pressure 99/72 L Blood Pressure Mean 82 Pulse Oximetry 100 100 100 Oxygen Delivery Method Oxygen Flow Rate Sepsis Recent Fever Within 48 Hours Sepsis New/Unexplained Change in Mental Status Sepsis Action Taken by Nursing 01/10/24 23:30 01/10/24 23:30 01/10/24 23:40 Temperature Temperature Source Pulse Rate 90 90 83 Pulse Rate from SpO2 Sensor 88 83 Respiratory Rate 20 20 17 Respiratory Effort / Characteristics Respiratory Depth Blood Pressure 115/65 Blood Pressure Mean 98 Pulse Oximetry 99 99 100 Oxygen Delivery Method Oxygen Flow Rate Sepsis Recent Fever Within 48 Hours Sepsis New/Unexplained Change in Mental Status Sepsis Action Taken by Nursing 01/10/24 23:45 01/10/24 23:45 01/10/24 23:50 Temperature Temperature Source Pulse Rate 79 79 86 Pulse Rate from SpO2 Sensor 79 87 Respiratory Rate 15 15 17 Respiratory Effort / Characteristics Respiratory Depth Blood Pressure 117/77 Blood Pressure Mean 91 Pulse Oximetry 100 100 100 Oxygen Delivery Method Oxygen Flow Rate Sepsis Recent Fever Within 48 Hours Sepsis New/Unexplained Change in Mental Status Sepsis Action Taken by Nursing 01/10/24 23:51 01/11/24 00:05 Temperature 36.8 C 36.8 C Temperature Source Oral Oral Pulse Rate 80 82 Pulse Rate from SpO2 Sensor Respiratory Rate 19 16 Respiratory Effort / Characteristics Respiratory Depth Blood Pressure 117/77 126/93 Blood Pressure Mean 90 104 Pulse Oximetry 100 99 Oxygen Delivery Method Oxygen Flow Rate 3 Sepsis Recent Fever Within 48 Hours Sepsis New/Unexplained Change in Mental Status Sepsis Action Taken by Skilled Nursing Medications Current Medication List: was personally reviewed by me Laboratory Data Attestation: I reviewed the patient's lab results. 01/10/24 20:37 01/10/24 20:37 Lab Results 01/10/24 01/10/24 01/10/24 Range/Units 20:37 20:45 21:15 WBC 7.00 (4.8-10.8) K/ul RBC 2.70 L (4.20-5.40) M/uL Hgb 11.6 L (12.0-16.0) g/dl POC Hgb 12.2 (12.0-16.0) g/dl Hct 31.5 L (37.0-47.0) % POC Hct 36 L (37-47) % MCV 116.7 H (80.0-100.0) fL MCH 43.0 H (25.0-34.0) pg MCHC 36.8 H (32.0-36.0) g/dL RDW Std Deviation 56.0 H (36.4-46.3) fL RDW Coeff of Car 13.2 (11.5-14.5) % Plt Count 56 L (130-400) K/uL MPV 12.5 H (9.4-12.4) fL Absolute Nucleated RBC 0.08 (0.00-0.12) K/uL Nucleated RBC % (auto) 1.1 % Neutrophils % (Manual) 87 % Lymphocytes % (Manual) 9 % Monocytes % (Manual) 4 % Neutrophils # (Manual) 6.09 (1.40-6.50) K/uL Total Absolute Neuts 6.09 (1.4-6.5) K/uL Lymphocytes # (Manual) 0.63 L (1.2-3.4) K/uL Total Abs Lymphocytes 0.63 L (1.2-3.4) K/uL Monocytes # (Manual) 0.28 (0.11-0.59) K/uL Platelet Estimate Decreased L (Normal) Polychromasia 1+ Macrocytosis Present PT 17.4 H (9.0-12.0) Seconds INR 1.6 H (0.9-1.1) APTT 33 H (21-31) Seconds PTT Ratio 1.2 POC Sodium 126 L (135-144) mmol/L Sodium 125 L (136-145) mmol/L POC Potassium 2.9 L (3.3-5.0) mmol/L Potassium 2.9 L (3.5-5.1) mmol/L POC Chloride 85 L (101-112) mmol/L Chloride 87 L (98-107) mmol/L Carbon Dioxide 23 (21-32) mmol/L POC Total CO2 23 L (24-31) mmol/L Anion Gap 15 H (3-11) POC Anion Gap 22.0 (16-25) mmol/L POC BUN 9 (7-18) mg/dl BUN 11 (6-23) mg/dl Creatinine 0.62 (0.6-1.2) mg/dl POC Creatinine 0.7 (0.6-1.3) mg/dl Est Cr Clr Drug Dosing 98.6 ml/min Est GFR ( Amer) 114.4 ml/min Est GFR (Non-Af Amer) 98.7 ml/min BUN/Creatinine Ratio 17.7 (10-20) Glucose 148 H (70-99(Fasting)) mg/dl POC Glucose (other) 149 H (70-99) mg/dl Osmolality 268 L (280-300) mOsm/kg Calcium 8.5 L (8.6-10.3) mg/dl POC Ioniz Calcium Karlo 1.02 L (1.12-1.32) mmol/l Magnesium 1.1 L (1.7-2.4) mg/dl Total Bilirubin 2.1 H (0.2-1.0) mg/dl AST 155 H (13-39) U/L ALT 54 H (7-52) U/L Alkaline Phosphatase 175 H (34-104) U/L Total Protein 7.1 (6.0-8.3) gm/dl Albumin 3.5 (3.4-5.0) gm/dl Globulin 3.6 (2.5-4.0) gm/dl Albumin/Globulin Ratio 1.0 (0.9-2) TSH 6.151 H (0.300-4.500) uIu/ml Free T4 1.17 (0.61-1.60) ng/dl Ethyl Alcohol mg/dL 15.5 H (<10.0) mg/dl Blood Type A Positive Blood Type Recheck Antibody Screen NEGATIVE Crossmatch See Detail 01/10/24 Range/Units 22:29 WBC (4.8-10.8) K/ul RBC (4.20-5.40) M/uL Hgb (12.0-16.0) g/dl POC Hgb (12.0-16.0) g/dl Hct (37.0-47.0) % POC Hct (37-47) % MCV (80.0-100.0) fL MCH (25.0-34.0) pg MCHC (32.0-36.0) g/dL RDW Std Deviation (36.4-46.3) fL RDW Coeff of Car (11.5-14.5) % Plt Count (130-400) K/uL MPV (9.4-12.4) fL Absolute Nucleated RBC (0.00-0.12) K/uL Nucleated RBC % (auto) % Neutrophils % (Manual) % Lymphocytes % (Manual) % Monocytes % (Manual) % Neutrophils # (Manual) (1.40-6.50) K/uL Total Absolute Neuts (1.4-6.5) K/uL Lymphocytes # (Manual) (1.2-3.4) K/uL Total Abs Lymphocytes (1.2-3.4) K/uL Monocytes # (Manual) (0.11-0.59) K/uL Platelet Estimate (Normal) Polychromasia Macrocytosis PT (9.0-12.0) Seconds INR (0.9-1.1) APTT (21-31) Seconds PTT Ratio POC Sodium (135-144) mmol/L Sodium (136-145) mmol/L POC Potassium (3.3-5.0) mmol/L Potassium (3.5-5.1) mmol/L POC Chloride (101-112) mmol/L Chloride (98-107) mmol/L Carbon Dioxide (21-32) mmol/L POC Total CO2 (24-31) mmol/L Anion Gap (3-11) POC Anion Gap (16-25) mmol/L POC BUN (7-18) mg/dl BUN (6-23) mg/dl Creatinine (0.6-1.2) mg/dl POC Creatinine (0.6-1.3) mg/dl Est Cr Clr Drug Dosing ml/min Est GFR ( Amer) ml/min Est GFR (Non-Af Amer) ml/min BUN/Creatinine Ratio (10-20) Glucose (70-99(Fasting)) mg/dl POC Glucose (other) (70-99) mg/dl Osmolality (280-300) mOsm/kg Calcium (8.6-10.3) mg/dl POC Ioniz Calcium Karlo (1.12-1.32) mmol/l Magnesium (1.7-2.4) mg/dl Total Bilirubin (0.2-1.0) mg/dl AST (13-39) U/L ALT (7-52) U/L Alkaline Phosphatase (34-104) U/L Total Protein (6.0-8.3) gm/dl Albumin (3.4-5.0) gm/dl Globulin (2.5-4.0) gm/dl Albumin/Globulin Ratio (0.9-2) TSH (0.300-4.500) uIu/ml Free T4 (0.61-1.60) ng/dl Ethyl Alcohol mg/dL (<10.0) mg/dl Blood Type Blood Type Recheck A Positive Antibody Screen Crossmatch Administered Medications Pantoprazole Sodium 40 mg/ (Dextrose) 100 mls @ 20 mls/hr IV Q5H ZITA Stop: 02/09/24 21:14 Last Admin: 01/10/24 21:30 Dose: 8 mg/hr, 20 mls/hr Documented By: LIDIA Octreotide Acetate 500 mcg/ (Sodium Chloride) 100.5 mls @ 10.05 mls/hr IV .Q10H ZITA Stop: 02/09/24 20:59 Last Admin: 01/10/24 21:52 Dose: 50 mcg/hr, 10.1 mls/hr Documented By: LIDIA Discontinued Medications Sodium Chloride (Nss) 1,000 mls @ 999 mls/hr IV .Q1H1M ZITA Stop: 01/10/24 22:00 Last Infusion: 01/10/24 22:16 Dose: Infused Documented By: Admin: 01/10/24 21:12 Dose: 999 mls/hr Documented By: ABDI Pantoprazole Sodium 80 mg/ (Dextrose) 120 mls @ 480 mls/hr IV NOW ONE Stop: 01/10/24 21:00 Last Infusion: 01/10/24 21:30 Dose: Infused Documented By: Admin: 01/10/24 21:10 Dose: 480 mls/hr Documented By: ABDI Octreotide Acetate 100 mcg/ (Syringe) 10 mls @ 3 mls/min IV NOW STA Stop: 01/10/24 20:49 Last Admin: 01/10/24 21:39 Dose: 3 mls/min Documented By: LIDIA Potassium Chloride (K [place] / Wtr) 10 meq in 100 mls @ 100 mls/hr IV Q1H ZITA Stop: 01/10/24 23:44 Last Admin: 01/11/24 00:04 Dose: 100 mls/hr Documented By: Infusion: 01/11/24 00:03 Dose: Infused Documented By: Admin: 01/10/24 22:44 Dose: 100 mls/hr Documented By: LIDIA Thiamine HCl 100 mg/ Syringe 10 mls @ 2 mls/min IV NOW STA Stop: 01/10/24 21:49 Last Admin: 01/10/24 22:17 Dose: 2 mls/min Documented By: LIDIA Phytonadione 10 mg/ Dextrose 51 mls @ 102 mls/hr IV ONE ONE Stop: 01/10/24 22:20 Last Admin: 01/11/24 00:40 Dose: 102 mls/hr Documented By: LIDIA Albumin Human (Albumin 25%) 25 gm in 100 mls @ 50 mls/hr IV ONE ONE Stop: 01/10/24 23:52 Last Admin: 01/10/24 22:40 Dose: 50 mls/hr Documented By: ABDI Metoclopramide HCl (Metoclopramide Hcl Inj 5 Mg/Ml 2 Ml Vial) 10 mg IV NOW STA Stop: 01/10/24 21:45 Last Admin: 01/11/24 00:05 Dose: 10 mg Documented By: LIDIA Nicotine (Nicotine 7 Mg/24 Hr Tdsy) 7 mg TD NOW STA Stop: 01/10/24 23:05 Last Admin: 01/10/24 23:30 Dose: 7 mg Documented By: LIDIA Potassium Chloride (Potassium Chloride Crtab 20 Meq Tabcr) 40 meq PO NOW STA Stop: 01/10/24 21:48 Last Admin: 01/10/24 22:47 Dose: Not Given Documented By: LIDIA Potassium Chloride (Potassium Chloride Crtab 20 Meq Tabcr) 40 meq PO NOW STA Stop: 01/10/24 23:57 Last Admin: 01/11/24 00:23 Dose: Not Given Documented By: LIDIA Discharge Plan Visit Data Chief Complaint: Syncope Stated Complaint: Syncope, Hematemesis ED Provider: Mark Crooks Discharge Problem: Acute upper gastrointestinal bleeding, Hypokalemia, Hypomagnesemia, Hyperbilirubinemia, Transaminitis, Syncope Forms Stand Alone Forms: [facility] Prescriptions Prescriptions: No Action pyridoxine (vitamin B6) [Vitamin B-6] 100 mg Tablet 100 mg PO DAILY fluticasone propionate [Flonase Allergy Relief] 50 mcg/actuation [place],Suspension 2 spray INTRANASAL DAILY PRN (Reason: Allergy Symptoms) oregano oil 1,500 mg Capsule 0 mg PO DAILY Referrals Referrals: Eryn Devlin DO [Outside Practitioners] - Discharge Problem: Syncope Qualifiers: Syncope type: unspecified Qualified Code(s): R55 - Syncope and collapse
[2024-01-10 20:58] LABS: iSTAT Creatinine 0.7 mg/dl (0.6-1.3); iSTAT Hemoglobin 12.2 g/dl (12.0-16.0); iSTAT Ionized Calcium 1.02 mmol/l (1.12-1.32); iSTAT Potassium 2.9 mmol/L (3.3-5.0)
[2024-01-10] MEDS: PANTOprazole 80 MG in DEXTROSE 5% 100 ML IV ONE (21:10)
[2024-01-10] MEDS: SODIUM CHLORIDE 0.9% 1,000 ML IV SCH (21:12)
[2024-01-10 21:15] LABS: Albumin Level 3.5 gm/dl (3.4-5.0); BUN Creatinine Ratio 17.7 (10-20); Bilirubin,Total 2.1 mg/dl (0.2-1.0); Calcium 8.5 mg/dl (8.6-10.3); Creatinine Clr Calc Pharmacy 98.6 ml/min; Est GFR (African American) 114.4 ml/min; Est GFR (Non-African American) 98.7 ml/min; Globulin 3.6 gm/dl (2.5-4.0); Magnesium 1.1 mg/dl (1.7-2.4); Potassium 2.9 mmol/L (3.5-5.1); Total Protein 7.1 gm/dl (6.0-8.3)
[2024-01-10 21:24] LABS: ALC (manual) 0.63 K/uL (1.2-3.4); ANC (manual) 6.09 K/uL (1.4-6.5); Hematocrit (blood only) 31.5 % (37.0-47.0); Hemoglobin 11.6 g/dl (12.0-16.0); Lymphocytes # (manual) 0.63 K/uL (1.2-3.4); Lymphocytes % (manual) 9 %; Macrocytosis Present; Mean Corpuscular Hgb Conc 36.8 g/dL (32.0-36.0); Mean Corpuscular Volume 116.7 fL (80.0-100.0); Mean Platelet Volume 12.5 fL (9.4-12.4); Monocytes # (manual) 0.28 K/uL (0.11-0.59); Monocytes % (manual) 4 %; Neutrophils # (manual) 6.09 K/uL (1.40-6.50); Neutrophils % (manual) 87 %; Nucleated RBC # (auto) 0.08 K/uL (0.00-0.12); Nucleated RBC % (auto) 1.1 %; Platelet Count 56 K/uL (130-400); Platelet Estimate Decreased (Normal); Polychromasia 1+; RDW Coefficient of Variation 13.2 % (11.5-14.5)
[2024-01-10 21:26] LABS: INR 1.6 (0.9-1.1); Partial Thromboplastin Ratio 1.2; Partial Thromboplastin Time 33 Seconds (21-31); Prothrombin Time 17.4 Seconds (9.0-12.0)
[2024-01-10] MEDS: PANTOprazole 40 MG in DEXTROSE 5% MINI-B 100 ML IV SCH (21:30)
[2024-01-10] MEDS: OCTREOTIDE ACETATE 100 MCG in SYRINGE 9 ML IV STA (21:39)
[2024-01-10] MEDS ORDERED: SODIUM CHLORIDE 0.9% 250 ML IV PRN (21:50)
[2024-01-10] MEDS: OCTREOTIDE ACETATE 500 MCG in 0.9 % SODIUM CHLORIDE 100 ML IV SCH (21:52)
[2024-01-10] MEDS: THIAMINE HCL 100 MG in SYRINGE 9 ML IV STA (22:17)
[2024-01-10] MEDS: ALBUMIN 25% 25 GM/100 ML VIAL IV ONE (22:40)
[2024-01-10 22:44] LABS: Thyroid Stimulating Hormone 6.151 uIu/ml (0.300-4.500)
[2024-01-10] MEDS: POTASSIUM CHLORIDE CRTAB 20 MEQ TABCR PO STA (22:44)
[2024-01-10] MEDS: POTASSIUM CHLORIDE / WTR 10 MEQ/100 ML PLCT IV SCH (22:44)
[2024-01-10 23:17] LABS: T4 Free Thyroxine 1.17 ng/dl (0.61-1.60)
[2024-01-10] MEDS: NICOTINE 7 MG/24 HR TDSY TD STA (23:30)
[2024-01-11] MEDS: METOCLOPRAMIDE HCL INJ 5 MG/ML 2 ML VIAL IV STA ×2 (00:05→09:31)
[2024-01-11] MEDS: POTASSIUM CHLORIDE CRTAB 20 MEQ TABCR PO STA (00:23)
[2024-01-11] MEDS: PHYTONADIONE 10 MG in DEXTROSE 5% 50 ML IV ONE (00:40)
--- NOTE | 2024-01-11 00:42 | History & Physical Report ---
Date of Service January 11, 2024 Assessment & Plan (1) Hypotension: Plan: Secondary to UGIB History esophageal varices Syncope secondary to orthostasis secondary to above Rule out structural cardiac pathology Acute anemia secondary to UGIB Alcoholic hepatitis, good prognosis with computed Maddrey's DF score of 26.9 points Coagulopathy and thrombocytopenia secondary to liver disease Hyponatremia, hypokalemia secondary to illness, EtOH abuse Aspiration pneumonitis, no sepsis for now Subclinical hypothyroidism, past history of hyperthyroidism (refused RAIU) as per records ongoing tobacco/alcohol abuse PCU given hypotension IVF IV PPI and octreotide for UGIB, history of variceal bleed GI consult re: UGIB, alcoholic hepatitis (ER provider already in touch with Dr. Madrigal.) N.p.o. in anticipation of endoscopy in a.m. TTE Re: Syncope Follow H&H, transfuse PRBC if hemoglobin less than 8 and or for symptomatic anemia SEDA S at risk protocol, DT precautions Careful correction of sodium, hyponatremia workup Replace electrolytes Unasyn for aspiration pneumonitis Aspiration precautions, BRIM RAISER eval Nicotine patch DVT prophylaxis. SCDs Re: UGIB Full code Text document was generated using [employer] voice recognition software. It may contain grammatical or spelling errors. Kindly contact undersigned for clarification of any documentation item in question. History of Present Illness Chief Complaint: Syncope Primary Care Provider: Misael Mejia DO (Patient has not met this new PCP assigned to her.) History obtained from patient and records. Medical history significant for alcoholic liver disease, esophageal varices, celiac disease, hyperthyroidism as per records, ongoing tobacco/alcohol abuse. Last confinement 2018 for alcoholic hepatitis. Patient discharged on prednisone course. 2 weeks history of junky cough symptoms without chest pain or SOB. Not sure about sick contacts. Admits to coughing with meals/water intake if not careful. Melanotic stools noted 2 days ago without abdominal pain. Patient felt lightheaded the whole day yesterday. Transient syncopal event witnessed by on getting up. Subsequent hematemesis. Lowest SBP of 70s documented at the ER. Medical History as above 2019 EGD showed nonbleeding esophageal varices, flattened mucosa duodenum consistent with celiac disease. 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 Allergies Allergy/AdvReac Type Severity Reaction Status Date / Time gluten Allergy Unknown Hives Verified 06/28/19 17:00 prednisone AdvReac Intermediate Nausea,vomiting Verified 06/28/19 17:00 and diarrhea Home Medications Medication Instructions Recorded Confirmed Type fluticasone propionate 50 2 spray intranasal DAILY PRN 06/28/19 01/10/24 History mcg/actuation nasal Allergy Symptoms spray,suspension (Flonase Allergy Relief) oregano oil 1,500 mg capsule 0 mg PO DAILY 06/28/19 01/10/24 History pyridoxine (vitamin B6) 100 mg 100 mg PO DAILY 06/28/19 01/10/24 History tablet (Vitamin B-6) Past Med/Surg History Medical History (Updated 01/11/24 @ 10:22 by Kevin Kelley MD) Encounter for pre-operative examination Celiac disease Tobacco use Alcohol use Colposcopy (06/23/13) Surgical History H/O eye surgery Family History Other Prostate cancer Stroke Social History Smoking Status: Current every day smoker Tobacco Type: Cigarettes Second Hand Exposure: No; Do You Dip or Chew Tobacco: No; Tobacco Cessation Education Requested by Patient: No Hx Alcohol Use: Yes Alcohol type: hard liquor Alcohol type Comment: h/o heavy vodka intake, stopped drinking 3 weeks ago Hx Substance Use: No Preferred Language: German Communication Ability: Effective Tower 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: No Beliefs That Will Affect Care: None marital status: Single Current Living Situation: Spouse Current Living Situation Comment: Tien Nuñez current occupational status: unemployed Other Information That Helps Us Care for You: No Feels Safe at Home: Yes Safety Concerns: Feels Safe At This Time Assistive Devices: None Review of Systems Review of Systems: As per HPI, all other systems reviewed and negative Physical Exam Physical Exam: GENERAL: Comfortable, pleasant, no respiratory distress SKIN: Pallor, warm HEENT: Bespectacled, pale palpebral conjunctivae, no ptosis, dry buccal mucosa NECK : Supple, no tenderness CHEST : Decreased breath sounds, no tenderness HEART : Tachycardic, no obvious murmurs ABDOMEN: Some distention, nontender EXTREMITIES : No LE swelling/tenderness, no other conspicuous deformities noted NEUROLOGIC : Coherent, no facial asymmetry, no other gross focality Results & Data Results & Data Vital Signs (Past 12 Hours) Vital Signs Temp Pulse Resp BP Pulse Ox O2 Del Method O2 Flow Rate 01/11/24 00:05 36.8 C 82 16 126/93 99 3 01/10/24 23:51 36.8 C 80 19 117/77 100 01/10/24 23:50 86 17 100 01/10/24 23:45 79 15 117/77 100 01/10/24 23:45 79 15 100 01/10/24 23:40 83 17 100 01/10/24 23:30 90 20 115/65 99 01/10/24 23:30 90 20 99 01/10/24 23:20 85 15 100 01/10/24 23:15 90 15 99/72 L 100 01/10/24 23:15 90 15 100 01/10/24 23:10 88 14 99 01/10/24 23:05 36.8 C 90 15 98/67 L 98 3 01/10/24 23:00 94 H 15 98/67 L 91 01/10/24 23:00 94 H 15 91 01/10/24 22:50 95 H 15 94 01/10/24 22:45 101/65 01/10/24 22:45 97 H 13 94 01/10/24 22:40 99 H 18 94 01/10/24 22:38 104 H 18 92 01/10/24 22:38 96/61 L 01/10/24 22:36 79/64 L 01/10/24 22:36 105 H 19 92 01/10/24 22:35 36.7 C 100 H 19 76/63 L 93 01/10/24 22:34 76/63 L 01/10/24 22:34 98 H 16 93 01/10/24 22:31 111 H 20 93 01/10/24 22:31 89/61 L 01/10/24 22:30 109 H 18 91 01/10/24 22:20 100 H 19 94 01/10/24 22:20 36.7 C 103 H 19 92/62 L 93 01/10/24 22:19 92/62 L 01/10/24 22:19 99 H 14 93 01/10/24 22:15 99/73 L 01/10/24 22:15 104 H 21 92 01/10/24 22:10 104 H 16 94 01/10/24 22:05 107/70 01/10/24 22:05 92 01/10/24 22:05 36.7 C 105 H 13 107/70 93 01/10/24 22:00 93 01/10/24 21:55 107/80 01/10/24 21:55 93 01/10/24 21:50 94 01/10/24 21:40 93 01/10/24 21:30 93 01/10/24 21:20 92 01/10/24 21:15 93 01/10/24 21:15 100/71 01/10/24 21:10 94 01/10/24 21:00 112 H 23 97/68 L 92 01/10/24 21:00 112 H 23 92 01/10/24 20:50 113 H 17 92 01/10/24 20:45 94/75 L 01/10/24 20:45 119 H 18 90 01/10/24 20:41 117 H 16 89/69 L 91 01/10/24 20:40 114 H 01/10/24 20:38 117 H 19 93 Room Air 01/10/24 20:20 36.7 C 115 H 18 123/76 98 Room Air 01/10/24 20:19 Room Air Laboratory Results Laboratory Results WBC 7.00 K/ul (4.8-10.8) 01/10/24 20:37 RBC 2.70 M/uL (4.20-5.40) L 01/10/24 20:37 Hgb 11.6 g/dl (12.0-16.0) L 01/10/24 20:37 POC Hgb 12.2 g/dl (12.0-16.0) 01/10/24 20:45 Hct 31.5 % (37.0-47.0) L 01/10/24 20:37 POC Hct 36 % (37-47) L 01/10/24 20:45 MCV 116.7 fL (80.0-100.0) H 01/10/24 20:37 MCH 43.0 pg (25.0-34.0) H 01/10/24 20:37 MCHC 36.8 g/dL (32.0-36.0) H 01/10/24 20:37 RDW Std Deviation 56.0 fL (36.4-46.3) H 01/10/24 20: RDW Coeff of Car 13.2 % (11.5-14.5) 01/10/24 20:37 Plt Count 56 K/uL (130-400) L 01/10/24 20: MPV 12.5 fL (9.4-12.4) H 01/10/24 20:37 Absolute Nucleated RBC 0.08 K/uL (0.00-0.12) 01/10/24 20: Nucleated RBC % (auto) 1.1 % 01/10/24 20: Neutrophils % (Manual) 87 % 01/10/24 20:37 Lymphocytes % (Manual) 9 % 01/10/24 20: Monocytes % (Manual) 4 % 01/10/24 20:37 Neutrophils # (Manual) 6.09 K/uL (1.40-6.50) 01/10/24 20:37 Total Absolute Neuts 6.09 K/uL (1.4-6.5) 01/10/24 20:37 Lymphocytes # (Manual) 0.63 K/uL (1.2-3.4) L 01/10/24 20:37 Total Abs Lymphocytes 0.63 K/uL (1.2-3.4) L 01/10/24 20:37 Monocytes # (Manual) 0.28 K/uL (0.11-0.59) 01/10/24 20:37 Platelet Estimate Decreased (Normal) L 01/10/24 20:37 Polychromasia 1+ 01/10/24 20:37 Macrocytosis Present 01/10/24 20:37 PT 17.4 Seconds (9.0-12.0) H 01/10/24 20:37 INR 1.6 (0.9-1.1) H 01/10/24 20:37 APTT 33 Seconds (21-31) H 01/10/24 20:37 PTT Ratio 1.2 01/10/24 20:37 POC Sodium 126 mmol/L (135-144) L 01/10/24 20:45 Sodium 125 mmol/L (136-145) L 01/10/24 20:37 POC Potassium 2.9 mmol/L (3.3-5.0) L 01/10/24 20:45 Potassium 2.9 mmol/L (3.5-5.1) L 01/10/24 20:37 POC Chloride 85 mmol/L (101-112) L 01/10/24 20:45 Chloride 87 mmol/L (98-107) L 01/10/24 20:37 Carbon Dioxide 23 mmol/L (21-32) 01/10/24 20:37 POC Total CO2 23 mmol/L (24-31) L 01/10/24 20:45 Anion Gap 15 (3-11) H 01/10/24 20:37 POC Anion Gap 22.0 mmol/L (16-25) 01/10/24 20:45 POC BUN 9 mg/dl (7-18) 01/10/24 20:45 BUN 11 mg/dl (6-23) 01/10/24 20:37 Creatinine 0.62 mg/dl (0.6-1.2) 01/10/24 20:37 POC Creatinine 0.7 mg/dl (0.6-1.3) 01/10/24 20:45 Est Cr Clr Drug Dosing 98.6 ml/min 01/10/24 20:37 Est GFR ( Amer) 114.4 ml/min 01/10/24 20:37 Est GFR (Non-Af Amer) 98.7 ml/min 01/10/24 20:37 BUN/Creatinine Ratio 17.7 (10-20) 01/10/24 20:37 Glucose 148 mg/dl (70-99(Fasting)) H 01/10/24 20:37 POC Glucose (other) 149 mg/dl (70-99) H 01/10/24 20:45 Osmolality 268 mOsm/kg (280-300) L 01/10/24 20:37 Calcium 8.5 mg/dl (8.6-10.3) L 01/10/24 20:37 POC Ioniz Calcium Karlo 1.02 mmol/l (1.12-1.32) L 01/10/24 20:45 Magnesium 1.1 mg/dl (1.7-2.4) L 01/10/24 20:37 Total Bilirubin 2.1 mg/dl (0.2-1.0) H 01/10/24 20:37 AST 155 U/L (13-39) H 01/10/24 20:37 ALT 54 U/L (7-52) H 01/10/24 20:37 Alkaline Phosphatase 175 U/L (34-104) H 01/10/24 20:37 Total Protein 7.1 gm/dl (6.0-8.3) 01/10/24 20:37 Albumin 3.5 gm/dl (3.4-5.0) 01/10/24 20:37 Globulin 3.6 gm/dl (2.5-4.0) 01/10/24 20:37 Albumin/Globulin Ratio 1.0 (0.9-2) 01/10/24 20:37 TSH 6.151 uIu/ml (0.300-4.500) H 01/10/24 20:37 Free T4 1.17 ng/dl (0.61-1.60) 01/10/24 20:37 Ethyl Alcohol mg/dL 15.5 mg/dl (<10.0) H 01/10/24 20:37 Blood Type A Positive 01/10/24 21:15 Blood Type Recheck A Positive 01/10/24 22:29 Antibody Screen NEGATIVE 01/10/24 21:15 Crossmatch See Detail 01/10/24 21:15 Diagnostic Findings Chest x-ray as per my interpretation atelectasis EKG as per my interpretation : Rate 110, sinus tachycardia, normal axis, T wave abnormalities lateral leads
[2024-01-11] MEDS ORDERED: LORazepam 1 MG in SYRINGE 0.5 ML IV PRN (00:48)
[2024-01-11] MEDS ORDERED: PROMETHAZINE HCL 6.25 MG in SODIUM CHLORIDE 0.9% 50 ML IV PRN (00:48)
[2024-01-11] MEDS ORDERED: oxyCODONE HCL IR 5 MG TAB (IMMEDIATE RELEASE) PO PRN (00:48)
[2024-01-11] MEDS ORDERED: ACETAMINOPHEN 500 MG TAB PO PRN (00:48)
[2024-01-11] MEDS: cefTRIAXone SODIUM 2,000 MG/50 ML BAG IV STA (01:06)
[2024-01-11] MEDS: cefTRIAXone SODIUM 2000MG/50ML D5W IV ONE (01:14)
[2024-01-11] MEDS: MAGNESIUM SULFATE / D5W 1 GM/100 ML BAG IV STA (01:18)
[2024-01-11] MEDS: ALBUMIN 25% 25 GM/100 ML VIAL IV ONE (01:54)
[2024-01-11] MEDS: MAGNESIUM SULFATE / D5W 1 GM/100 ML BAG IV SCH (02:19)
[2024-01-11] MEDS: AMPICILLIN/SULBACTAM SOD 3,000 MG in SODIUM CHLOR 0.9% MINI-B 100 ML IV STA (03:01)
[2024-01-11 03:39] LABS: Albumin Level 3.8 gm/dl (3.4-5.0); Bilirubin,Total 2.9 mg/dl (0.2-1.0); Calcium 8.3 mg/dl (8.6-10.3); Magnesium 1.5 mg/dl (1.7-2.4); Potassium 3.8 mmol/L (3.5-5.1)
[2024-01-11] MEDS: POTASSIUM CHLORIDE / WTR 10 MEQ/100 ML PLCT IV SCH (03:43)
[2024-01-11 03:45] LABS: Albumin Globulin Ratio 1.2 (0.9-2); BUN Creatinine Ratio 24.1 (10-20); Creatinine Clr Calc Pharmacy 105.4 ml/min; Est GFR (African American) 116.9 ml/min; Est GFR (Non-African American) 100.9 ml/min; Globulin 3.3 gm/dl (2.5-4.0); Total Protein 7.1 gm/dl (6.0-8.3)
[2024-01-11] MEDS: SODIUM CHLORIDE 0.9% 1,000 ML IV ONE (03:54)
[2024-01-11 04:00] LABS: Basophils # (auto) 0.01 K/uL (0.00-0.20); Basophils % (auto) 0.2 %; Hematocrit (blood only) 27.3 % (37.0-47.0); Immature Granulocytes # (auto) 0.04 K/uL (0.01-0.20); Lymphocytes # (auto) 0.24 K/uL (1.20-3.40); Lymphocytes % (auto) 5.8 %; Mean Corpuscular Hemoglobin 40.5 pg (25.0-34.0); Mean Corpuscular Hgb Conc 36.6 g/dL (32.0-36.0); Mean Corpuscular Volume 110.5 fL (80.0-100.0); Mean Platelet Volume 12.9 fL (9.4-12.4); Monocytes # (auto) 0.02 K/uL (0.11-0.59); Monocytes % (auto) 0.5 %; Neutrophils % (auto) 92.5 %; Nucleated RBC # (auto) 0.08 K/uL (0.00-0.12); Nucleated RBC % (auto) 1.9 %; Platelet Count 35 K/uL (130-400); Polychromasia 1+; RDW Coefficient of Variation 18.8 % (11.5-14.5); Red Blood Count 2.47 M/uL (4.20-5.40); Toxic Vacuolation 3+; White Blood Count 4.11 K/ul (4.8-10.8)
[2024-01-11 04:10] LABS: INR 1.6 (0.9-1.1)
[2024-01-11 05:47] LABS: Influenza A virus by PCR Negative (Neg); Influenza B virus by PCR Negative (Neg); RSV by PCR Negative (Neg); SARS CoV2 RNA(COVID-19) Ceph NEGATIVE (Negative)
--- NOTE | 2024-01-11 06:14 | Ultrasound Report ---
Exam(s): US ABDOMEN LIMITED EXAM: US Abdomen Limited, Right Upper Quadrant CLINICAL HISTORY: Reason for exam: abd distension. TECHNIQUE: Real-time ultrasound of the right upper quadrant with image documentation. COMPARISON: No relevant prior studies available. FINDINGS: Liver: Fatty liver. . Free fluid: No free fluid seen in the abdomen or pelvis. IMPRESSION: No evidence of ascites Electronically signed by: Humble Salazar MD 01/11/24 06:13 AM
--- NOTE | 2024-01-11 07:09 | XRay Report ---
XR chest 1V portable CLINICAL HISTORY: Hyponatremia. COMPARISON STUDY: Chest radiograph June 28, 2019. FINDINGS: Patient is mildly rotated. No pulmonary nodules are identified although sensitivity is dimi nished given radiographic technique. Lung volumes are normal. Linear left basilar densities represent atelectasis. There is no pneumothorax or pleural effusion. Cardiac size is normal. Mediastinal conto urs are normal. There is no evidence for pulmonary edema. IMPRESSION: No acute cardiopulmonary findings. ACT 112: Negative or not required by law. Electronically signed by: Iker Newton M.D. 01/11/2024 7:08 AM
[2024-01-11 07:36] LABS: Appearance Urine Clear (Clear); Bacteria Urine Automated Negative (Negative); Bilirubin Urine Negative (Negative); Blood Urine 2+ (Negative); Cast Urine Automated 0 /lpf (0-5); Color Urine Orange; Glucose Urine UA Negative (Negative); Ketones Urine Negative (Negative); Leukocyte Esterase Urine Negative (Negative); Nitrite Urine Negative (Negative); Protein Urine Negative (Negative); RBC Urine Automated 0-4 /hpf (0-4); Specific Gravity Urine 1.013 (1.000-1.030); Urobilinogen Urine Negative (Negative)
[2024-01-11 08:13] LABS: Amphetamines+Metham, Urine Neg (Neg); Barbiturates, Urine Neg (Neg); Benzodiazepine, Urine Neg (Neg); Cocaine, Urine Neg (Neg); MDMA (Ecstacy), Urine Neg (Neg); Marijuana, Urine Neg (Neg); Methadone, Urine Neg (Neg); Opiate, Urine Neg (Neg); Phencyclidine, Urine Neg (Neg)
[2024-01-11] MEDS: SODIUM CHLORIDE 0.9% 1,000 ML IV SCH (08:25)
[2024-01-11] MEDS: FOLIC ACID 1 MG TAB PO SCH (08:31)
[2024-01-11] MEDS: THIAMINE HCL 100 MG TAB PO SCH (08:31)
[2024-01-11] MEDS: MULTIVITAMIN TAB PO SCH (08:31)
[2024-01-11 08:32] LABS: Hematocrit (blood only) 27.8 % (37.0-47.0)
[2024-01-11] MEDS: AMPICILLIN/SULBACTAM SOD 3,000 MG in SODIUM CHLOR 0.9% MINI-B 100 ML IV SCH (08:32)
[2024-01-11 08:47] LABS: Mean Corpuscular Hemoglobin 40.3 pg (25.0-34.0); Mean Platelet Volume 12.6 fL (9.4-12.4); Nucleated RBC # (auto) 0.02 K/uL (0.00-0.12); Nucleated RBC % (auto) 0.3 %; Platelet Count 39 K/uL (130-400); RDW Coefficient of Variation 19.3 % (11.5-14.5); RDW Standard Deviation 75.7 fL (36.4-46.3); Red Blood Count 2.48 M/uL (4.20-5.40); White Blood Count 7.21 K/ul (4.8-10.8)
[2024-01-11 08:48] LABS: Basophils # (auto) 0.01 K/uL (0.00-0.20); Basophils % (auto) 0.1 %; Eosinophils # (auto) 0.03 K/uL (0.00-0.50); Eosinophils % (auto) 0.4 %; Immature Granulocytes # (auto) 0.06 K/uL (0.01-0.20); Immature Granulocytes % (auto) 0.8 %; Lymphocytes % (auto) 5.5 %; Mean Corpuscular Volume 109.4 fL (80.0-100.0); Monocytes # (auto) 0.07 K/uL (0.11-0.59); Neutrophils # (auto) 6.64 K/uL (1.40-6.50); Neutrophils % (auto) 92.2 %
[2024-01-11 08:54] LABS: BUN Creatinine Ratio 22.2 (10-20); Calcium 8.4 mg/dl (8.6-10.3); Est GFR (African American) 113.8 ml/min; Est GFR (Non-African American) 98.2 ml/min; Magnesium 2.6 mg/dl (1.7-2.4); Potassium 3.9 mmol/L (3.5-5.1)
--- NOTE | 2024-01-11 09:14 | Gastrointestinal Consultation ---
Date of Consultation January 11, 2024 Assessment & Plan (1) Acute upper gastrointestinal bleeding: Melena, hematemesis in a pt who is drinking increased amts of alcohol. 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 Mendez in 2019. She has a PPI drip, octreotide running and had a dose of Unasyn. Plan EGD now. Further recommendations to follow. Supervising Physician Co-Signing Physician Notes I performed a history and physical examination of the patient today, including specifically on physical exam - soft abdomen. I have discussed the patient's management with the advanced practitioner. Please refer to the nurse practitioner's note for the documented findings and plan of care. EGD Patient was explained in detail regarding risks, benefits, limitations and alternatives of the above endoscopic procedure. Risks of intravenous sedation used for procedure were also explained. Risks include, but not limited to perforation, bleeding, infection, respiratory distress, cardiac arrest and . Patient is also aware about the possibility of missed lesion. Patient's questions were answered. The patient verbalized understanding the information and agreed to undergo the procedure. History of Present Illness Reason for Consultation: UGI Bleed Requesting Physician: Mark Crooks, ED physician Attending Physician: Des Zimmerman MD History of Present Illness Ms. Sheyla Melton is a 58 yr old female pt of Dr. Devlin w a hx of increased alcohol intake who fainted/caught by her (no injury) and vomi cristobal a large amt of dark red/black blood w clots. On arrival in the ED around last evening, she vomited another about one pint of blood. She also mentions that she had had black BMs on Thursday. Hb on arrival was 11.6, she received one unit of RBCs and Hb is now 10. Platelets are 33 and she received a unit of platelets. Her BUN has been normal 11 on arrival, 14 this morning. Now, in the ICU (PCU overflow), she is awake, alert, oriented and hasn't have further vomiting or BMs. HR 100, no O2 requirements, afebrile. She received a dose of metoclopramide last evening. An Abd US is w fatty liver. She is on Protonix and Octreotide drips, received Unasyn and is NPO. She denies any abd pain and denies the use of any NSAIDs. Her most recent EGD was in 2019 w Grade I EV by Dr. Mendez. She was seen in GI clinic in 2019 by Shae Gutierrez for alcoholic hepatitis but was lost to f/u after. When asked about alcohol, she reports that she drinks about 3 jared/day, most recently yesterday. Allergies Allergy/AdvReac Type Severity Reaction Status Date / Time gluten Allergy Unknown Hives Verified 06/28/19 17:00 prednisone AdvReac Intermediate Nausea,vomiting Verified 06/28/19 17:00 and diarrhea Home Medications Medication Instructions Recorded Confirmed Type fluticasone propionate 50 2 spray intranasal DAILY PRN 06/28/19 01/10/24 History mcg/actuation nasal Allergy Symptoms spray,suspension (Flonase Allergy Relief) oregano oil 1,500 mg capsule 0 mg PO DAILY 06/28/19 01/10/24 History pyridoxine (vitamin B6) 100 mg 100 mg PO DAILY 06/28/19 01/10/24 History tablet (Vitamin B-6) Patient History Medical History (Updated 01/11/24 @ 08:53 by Johnathan Arias MD) Celiac disease Tobacco use Alcohol use Colposcopy (06/23/13) Surgical History H/O eye surgery Family History Other Prostate cancer Stroke Social History Smoking Status: Current every day smoker Tobacco Type: Cigarettes Second Hand Exposure: No; Do You Dip or Chew Tobacco: No; Tobacco Cessation Education Requested by Patient: No Hx Alcohol Use: Yes Alcohol type: hard liquor Alcohol type Comment: h/o heavy vodka intake, stopped drinking 3 weeks ago Hx Substance Use: No Preferred Language: Frisian Communication Ability: Effective 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 Beliefs That Will Affect Care: None marital status: Single Current Living Situation: Spouse Current Living Situation Comment: Tien Nuñez current occupational status: unemployed Other Information That Helps Us Care for You: No Feels Safe at Home: Yes Safety Concerns: Feels Safe At This Time Assistive Devices: None Review of Systems Review of Systems: ROS: Gen: + syncope; Extreme fatigue x 2-3 days Eyes: No eye redness, or pain, no recent vision changes Resp: No SOB, no cough Cardio: + syncopal episode Denies palpitations/irregular beats, no chest pain GI: No abdominal pain, + N/V : Denies pain on urination Skin: No jaundice, itching or new rashes Physical Exam Constitutional: WD/WN, vitals as above (except HR 100) Eyes: PERRL, conjunctivae normal, anicteric sclerae ENMT: external ear and nose normal, oropharynx normal Neck: trachea midline, no thyromegaly Respiratory: normal respiratory effort, lungs clear to auscultation Cardiovascular: RRR, no murmur, no edema (except HR 100) Gastrointestinal (Abdomen): normal bowel sounds, soft, nontender, no hepatosplenomegaly Musculoskeletal: no cyanosis or clubbing, extremities motor strength 5/5 Skin: no rashes, warm and dry Neurologic: PERRL, EOMI, accommodation nl, no face palsy, no dysarthria Psychiatric: A+Ox3, euthymic affect Lymphatic: no cervical or axillary lymphadenopathy Results & Data Vital Signs (Past 12 Hours) Vital Signs Temp Pulse Pulse Resp BP BP Pulse Ox 01/11/24 08:54 37.1 C 01/11/24 08:00 112/65 01/11/24 08:00 103 H 13 95 01/11/24 08:00 102 H 01/11/24 06:00 101 H 15 97 01/11/24 06:00 105/65 01/11/24 05:37 107 H 01/11/24 05:27 102/69 01/11/24 05:27 108 H 21 96 01/11/24 05:03 107 H 22 95 01/11/24 04:22 36.6 C 105 H 18 98/55 L 95 01/11/24 04:00 110 H 20 120/72 93 01/11/24 03:30 106 H 21 119/77 94 01/11/24 03:00 108 H 23 116/82 93 01/11/24 02:00 112 H 23 136/87 96 01/11/24 01:20 116 H 26 H 143/97 H 88 L 01/11/24 01:15 117 H 27 H 147/103 H 90 01/11/24 01:10 121 H 27 H 90 01/11/24 01:09 110 H 21 117/94 92 01/11/24 01:01 117/94 01/11/24 01:01 122 H 28 H 92 01/11/24 01:01 121 H 01/11/24 01:00 123 H 21 91 01/11/24 00:50 117 H 21 77 L 01/11/24 00:45 141/91 H 01/11/24 00:45 103 H 22 87 L 01/11/24 00:40 95 H 17 92 01/11/24 00:30 89 16 92 01/11/24 00:30 115/58 L 01/11/24 00:20 91 H 20 95 01/11/24 00:17 100 H 19 104/31 L 94 01/11/24 00:17 100 H 19 94 01/11/24 00:10 83 22 97 01/11/24 00:05 36.8 C 82 16 126/93 99 01/11/24 00:00 77 17 126/93 100 01/11/24 00:00 77 17 100 01/10/24 23:51 36.8 C 80 19 117/77 100 01/10/24 23:50 86 17 100 01/10/24 23:45 79 15 117/77 100 01/10/24 23:45 79 15 100 01/10/24 23:40 83 17 100 01/10/24 23:30 90 20 115/65 99 01/10/24 23:30 90 20 99 01/10/24 23:20 85 15 100 01/10/24 23:15 90 15 99/72 L 100 01/10/24 23:15 90 15 100 01/10/24 23:10 88 14 99 01/10/24 23:05 36.8 C 90 15 98/67 L 98 01/10/24 23:00 94 H 15 98/67 L 91 01/10/24 23:00 94 H 15 91 01/10/24 22:50 95 H 15 94 01/10/24 22:45 101/65 02 22:45 97 H 13 94 01/10/24 22:40 99 H 18 94 01/10/24 22:38 104 H 18 92 01/10/24 22:38 96/61 L 01/10/24 22:36 79/64 L 01/10/24 22:36 105 H 19 92 01/10/24 22:35 36.7 C 100 H 19 76/63 L 93 01/10/24 22:34 76/63 L 01/10/24 22:34 98 H 16 93 01/10/24 22:31 111 H 20 93 01/10/24 22:31 89/61 L 01/10/24 22:30 109 H 18 91 01/10/24 22:20 100 H 19 94 01/10/24 22:20 36.7 C 103 H 19 92/62 L 93 01/10/24 22:19 92/62 L 01/10/24 22:19 99 H 14 93 01/10/24 22:15 99/73 L 01/10/24 22:15 104 H 21 92 01/10/24 22:10 104 H 16 94 01/10/24 22:05 107/70 01/10/24 22:05 92 01/10/24 22:05 36.7 C 105 H 13 107/70 93 01/10/24 22:00 93 01/10/24 21:55 107/80 01/10/24 21:55 93 01/10/24 21:50 94 01/10/24 21:40 93 01/10/24 21:30 93 01/10/24 21:20 92 01/10/24 21:15 93 01/10/24 21:15 100/71 O2 Del Method O2 Flow Rate 01/11/24 08:54 01/11/24 08:00 01/11/24 08:00 Room Air 01/11/24 08:00 01/11/24 06:00 4 01/11/24 06:00 01/11/24 05:37 01/11/24 05:27 01/11/24 05:27 01/11/24 05:03 4 01/11/24 04:22 Room Air 01/11/24 04:00 01/11/24 03:30 01/11/24 03:00 01/11/24 02:00 01/11/24 01:20 01/11/24 01:15 01/11/24 01:10 01/11/24 01:09 01/11/24 01:01 01/11/24 01:01 01/11/24 01:01 01/11/24 01:00 01/11/24 00:50 01/11/24 00:45 01/11/24 00:45 01/11/24 00:40 01/11/24 00:30 01/11/24 00:30 01/11/24 00:20 01/11/24 00:17 01/11/24 00:17 01/11/24 00:10 01/11/24 00:05 3 01/11/24 00:00 01/11/24 00:00 01/10/24 23:51 01/10/24 23:50 01/10/24 23:45 01/10/24 23:45 01/10/24 23:40 01/10/24 23:30 01/10/24 23:30 01/10/24 23:20 01/10/24 23:15 01/10/24 23:15 01/10/24 23:10 01/10/24 23:05 3 01/10/24 23:00 01/10/24 23:00 01/10/24 22:50 01/10/24 22:45 01/10/24 22:45 01/10/24 22:40 01/10/24 22:38 01/10/24 22:38 01/10/24 22:36 01/10/24 22:36 01/10/24 22:35 01/10/24 22:34 01/10/24 22:34 01/10/24 22:31 01/10/24 22:31 01/10/24 22:30 01/10/24 22:20 01/10/24 22:20 01/10/24 22:19 01/10/24 22:19 01/10/24 22:15 01/10/24 22:15 01/10/24 22:10 01/10/24 22:05 01/10/24 22:05 01/10/24 22:05 01/10/24 22:00 01/10/24 21:55 01/10/24 21:55 01/10/24 21:50 01/10/24 21:40 01/10/24 21:30 01/10/24 21:20 01/10/24 21:15 01/10/24 21:15 Laboratory Results WBC 4, Hb 10, Hct 27, Plts 35, PT 17, INR 1.6, Na 126, K 3.8, Cl 91, CO2 26, BUN 14, Cr 0.5 Diagnostic Findings US 01/11/24 w fatty liver
--- NOTE | 2024-01-11 10:20 | Anesthesiology Consultation ---
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 Consults Requested none Proposed Anesthesia Anesthesia Type: MAC History Surgery Operation Date: 01/11/24 16:30 Proposed Procedures p Esophagogastroduodenoscopy Dr Good - John Good MD Height/Weight Height: 5 ft 8 in Weight: 66.9 kg Allergies Allergy/AdvReac Type Severity Reaction Status Date / Time gluten Allergy Unknown Hives Verified 06/28/19 17:00 prednisone AdvReac Intermediate Nausea,vomiting Verified 06/28/19 17:00 and diarrhea Medications Home Medications Medication Instructions Recorded Confirmed Last Taken fluticasone propionate 50 2 spray intranasal DAILY PRN 06/28/19 01/10/24 01/07/24 mcg/actuation nasal Allergy Symptoms spray,suspension (Flonase Allergy Relief) oregano oil 1,500 mg capsule 0 mg PO DAILY 06/28/19 01/10/24 01/09/24 08:00 pyridoxine (vitamin B6) 100 mg 100 mg PO DAILY 06/28/19 01/10/24 01/10/24 09:00 tablet (Vitamin B-6) Active Medications Generic Name Dose Route Start Last Admin Trade Name Freq PRN Reason Stop Dose Admin Folic Acid 1 mg 01/11/24 09:00 01/11/24 08:31 Folic Acid 1 Mg Tab PO 02/10/24 08:59 1 mg QAM ZITA Administration Pantoprazole Sodium 40 mg/ 100 mls @ 20 mls/hr 01/10/24 21:15 01/11/24 07:47 Dextrose IV 02/09/24 21:14 8 mg/hr Q5H ZITA 20 mls/hr Administration 8 MG/HR Octreotide Acetate 500 mcg/ 100.5 mls @ 10.05 mls/hr 01/10/24 21:00 01/11/24 07:44 Sodium Chloride IV 02/09/24 20:59 50 mcg/hr .Q10H ZITA 10.1 mls/hr Administration 50 MCG/HR Ampicillin Sodium/Sulbactam 100 mls @ 100 mls/hr 01/11/24 10:00 01/11/24 09:35 Sodium 3,000 mg/ Sodium IV 01/18/24 09:59 Infused Chloride Q6H ZITA Infusion Sodium Chloride 1,000 mls @ 100 mls/hr 01/11/24 08:00 01/11/24 08:25 Nss IV 02/10/24 07:59 100 mls/hr .Q10H ZITA Administration Miscellaneous 1 each 01/11/24 08:59 01/11/24 09:35 Remove Nicoderm Patch N/A 02/10/24 08:58 Not Given DAILY@0859 ZITA Multivitamins 1 tab 01/11/24 09:00 01/11/24 08:31 Multivitamin Tab PO 02/10/24 08:59 1 tab QAM ZITA Administration Thiamine HCl 100 mg 01/11/24 09:00 01/11/24 08:31 Thiamine Hcl 100 Mg Tab PO 02/10/24 08:59 100 mg QAM ZITA Administration NPO Date Last Intake of Fluids: 01/11/24 Time Last Intake of Fluids: 07:00 Date Last Intake of Solids: 01/10/24 Time Last Intake of Solids: 09:00 Past Medical History Medical History (Updated 01/11/24 @ 10:22 by Kevin Kelley MD) Encounter for pre-operative examination Celiac disease Tobacco use Alcohol use Colposcopy (06/23/13) Past Family History Family History Other Prostate cancer Stroke Past Surgical History Surgical History H/O eye surgery Social History Smoking Status: Current every day smoker tobacco type: cigarettes Do You Dip or Chew Tobacco: No Hx Alcohol Use: Yes Alcohol type: hard liquor alcohol intake frequency: 3 or more drinks per day Hx Substance Use: No substance use type: does not use Physical Exam Vital Signs Last Vital Signs Temp 37.8 C H 01/11/24 10:05 Pulse 87 01/11/24 10:05 Resp 16 01/11/24 10:05 BP 112/70 01/11/24 10:05 Pulse Ox 94 01/11/24 10:05 O2 Del Method Nasal Cannula 01/11/24 10:05 O2 Flow Rate 3 01/11/24 10:05 Testing Laboratory Results 01/11/24 07:54 01/11/24 07:54 PT 17.0 Seconds (9.0-12.0) H 01/11/24 02:40 INR 1.6 (0.9-1.1) H 01/11/24 02:40 APTT 33 Seconds (21-31) H 01/10/24 20:37 Urine Color [place] 01/11/24 Unknown Urine Appearance Clear (Clear) 01/11/24 Unknown Urine pH 6.0 (4.5-7.5) 01/11/24 Unknown Ur Specific [place] 1.013 (1.000-1.030) 01/11/24 Unknown Urine Protein Negative (Negative) 01/11/24 Unknown Urine Glucose (UA) Negative (Negative) 01/11/24 Unknown Urine Ketones Negative (Negative) 01/11/24 Unknown Urine Nitrite Negative (Negative) 01/11/24 Unknown Ur Leukocyte Esterase Negative (Negative) 01/11/24 Unknown Urine WBC (Auto) 1-5 /hpf (0-5) 01/11/24 Unknown Urine RBC (Auto) 0-4 /hpf (0-4) 01/11/24 Unknown U Hyaline Cast (Auto) 0 /lpf (0-5) 01/11/24 Unknown U Epithel Cells (Auto) 10-20 /lpf (0-5) H 01/11/24 Unknown Urine Bacteria (Auto) Negative (Negative) 01/11/24 Unknown Blood Type A Positive 01/10/24 21:15 Antibody Screen NEGATIVE 01/10/24 21:15 Electrocardiogram Date: 01/10/24 ID:[id number] 10-JAN-2024 20:22:50 [facility]-EDSTAT ROUTINE RETRIEVAL Sinus tachycardia Nonspecific ST abnormality Abnormal ECG When compared with ECG of 30-JUN-2019 17:30, Nonspecific T wave abnormality no longer evident in Inferior leads Nonspecific T wave abnormality no longer evident in Anterior leads 25mm/s10mm/[id number]: [id number] by: REFERRED SELF Unconfirmed Vent. rate 112 BPM [place] interval 140 ms QRS duration 72 ms QT/QTc 372/507 ms Chest X-Ray Date: 01/10/24 CLINICAL HISTORY: Hyponatremia. COMPARISON STUDY: Chest radiograph June 28, 2019. FINDINGS: Patient is mildly rotated. No pulmonary nodules are identified although sensitivity is diminished given radiographic technique. Lung volumes are normal. Linear left basilar densities represent atelectasis. There is no pneumothorax or pleural effusion. Cardiac size is normal. Mediastinal contours are normal. There is no evidence for pulmonary edema. IMPRESSION: No acute cardiopulmonary findings.
--- NOTE | 2024-01-11 11:02 | GI REPORT ---
Patient Name: Sheyla Melton Procedure Date: 01/11/2024 10:16 AM Date of : 1965 Admit Type: Inpatient Age: 58 Gender: Female Attending MD: John Good MD, Procedure: Upper GI endoscopy Providers: John Good MD Referring MD: Des Zimmerman Indications: Hematemesis Medicines: Propofol per Anesthesia Complications: No immediate complications. Estimated Blood Loss: Estimated blood loss: none. Procedure: Pre-Anesthesia Assessment: - Prior to the procedure, a History and Physical was performed, and patient medications, allergies and sensitivities were reviewed. The patient's tolerance of previous anesthesia was reviewed. - The risks and benefits of the procedure and the sedation options and risks were discussed with the patient. All questions were answered and informed consent was obtained. - Patient identification and proposed procedure were verified prior to the procedure by the physician and the nurse. The procedure was verified in the procedure room. - Pre-procedure physical examination revealed no contraindications to sedation. After obtaining informed consent, the endoscope was passed under direct vision. Throughout the procedure, the patient's blood pressure, pulse, and oxygen saturations were monitored continuously. The Endoscope was introduced through the mouth, and advanced to the second part of duodenum. The upper GI endoscopy was accomplished without difficulty. The patient tolerated the procedure well. Findings: Two columns of grade III varices with stigmata of recent bleeding were found in the lower third of the esophagus. Red martine signs were present. Two bands were successfully placed with complete eradication, resulting in deflation of varices. The Z-line was regular and was found 40 cm from the incisors. Mild portal hypertensive gastropathy was found in the gastric body. The duodenal bulb and second portion of the duodenum were normal. Impression: - No active bleeding seen. - Grade III esophageal varices with red martine sign. Banded. - Portal hypertensive gastropathy. - Normal duodenal bulb and second portion of the duodenum. - No specimens collected. Recommendation: - [facility]. - Clear liquid diet for 2 days, then advance as tolerated to full liquid diet. - Use a proton pump inhibitor IV BID for 2 days then PO BID for 3 months. - PO Liquid Carafate for 2 weeks. - IV Octreotide for 2 days. - Repeat upper endoscopy in 3 months for retreatment. - IV ABx while inpt. John Good MD 01/11/2024 11:01:34 AM This report has been signed electronically. Note Initiated On: 01/11/2024 10:16 AM Number of Addenda: 0 I attest to the content of the Intraoperative Record and orders documented therein, exceptions below {[id number]}
[2024-01-11] MEDS: ACETAMINOPHEN 325 MG TAB PO ONE (11:53)
[2024-01-11] MEDS: LIDOCAINE 2% 2 ML VIAL/AMP(20MG/ML) INFIL ONE (12:02)
[2024-01-11] MEDS: PROPOFOL IV EMULSION 10 MG/ML 20 ML VIAL IV ONE (12:02)
--- NOTE | 2024-01-11 12:04 | Anesthesiology Progress Note ---
Date of Service January 11, 2024 Anesthesia Post Procedure Vital Signs Vital Signs: Temp Pulse Pulse Pulse Resp BP BP 01/11/24 11:31 75 16 96/61 L 01/11/24 11:16 85 16 101/66 01/11/24 11:01 85 16 98/69 L 01/11/24 10:05 37.8 C H 87 16 112/70 01/11/24 08:54 37.1 C 01/11/24 08:00 01/11/24 08:00 112/65 01/11/24 08:00 103 H 13 01/11/24 08:00 102 H 01/11/24 06:00 101 H 15 01/11/24 06:00 105/65 01/11/24 05:37 107 H 01/11/24 05:27 102/69 01/11/24 05:27 108 H 21 01/11/24 05:03 107 H 22 01/11/24 04:22 36.6 C 105 H 18 98/55 L 01/11/24 04:00 110 H 20 120/72 01/11/24 03:30 106 H 21 119/77 01/11/24 03:00 108 H 23 116/82 01/11/24 02:00 112 H 23 136/87 01/11/24 01:20 116 H 26 H 143/97 H 01/11/24 01:15 117 H 27 H 147/103 H 01/11/24 01:10 121 H 27 H 01/11/24 01:09 110 H 21 117/94 01/11/24 01:01 117/94 01/11/24 01:01 122 H 28 H 01/11/24 01:01 121 H 01/11/24 01:00 123 H 21 01/11/24 00:50 117 H 21 01/11/24 00:45 141/91 H 01/11/24 00:45 103 H 22 01/11/24 00:40 95 H 17 01/11/24 00:30 89 16 01/11/24 00:30 115/58 L 01/11/24 00:20 91 H 20 01/11/24 00:17 100 H 19 104/31 L 01/11/24 00:17 100 H 19 01/11/24 00:10 83 22 01/11/24 00:05 36.8 C 82 16 126/93 01/11/24 00:00 77 17 126/93 01/11/24 00:00 77 17 01/10/24 23:51 36.8 C 80 19 117/77 01/10/24 23:50 86 17 01/10/24 23:45 79 15 117/77 01/10/24 23:45 79 15 01/10/24 23:40 83 17 01/10/24 23:30 90 20 115/65 01/10/24 23:30 90 20 01/10/24 23:20 85 15 01/10/24 23:15 90 15 99/72 L 01/10/24 23:15 90 15 01/10/24 23:10 88 14 01/10/24 23:05 36.8 C 90 15 98/67 L 01/10/24 23:00 94 H 15 98/67 L 01/10/24 23:00 94 H 15 01/10/24 22:50 95 H 15 01/10/24 22:45 101/65 01/10/24 22:45 97 H 13 01/10/24 22:40 99 H 18 01/10/24 22:38 104 H 18 01/10/24 22:38 96/61 L 01/10/24 22:36 79/64 L 01/10/24 22:36 105 H 19 01/10/24 22:35 36.7 C 100 H 19 76/63 L 01/10/24 22:34 76/63 L 01/10/24 22:34 98 H 16 01/10/24 22:31 111 H 20 01/10/24 22:31 89/61 L 01/10/24 22:30 109 H 18 01/10/24 22:20 100 H 19 01/10/24 22:20 36.7 C 103 H 19 92/62 L 01/10/24 22:19 92/62 L 01/10/24 22:19 99 H 14 01/10/24 22:15 99/73 L 01/10/24 22:15 104 H 21 01/10/24 22:10 104 H 16 01/10/24 22:05 107/70 01/10/24 22:05 01/10/24 22:05 36.7 C 105 H 13 107/70 01/10/24 22:00 01/10/24 21:55 107/80 01/10/24 21:55 01/10/24 21:50 01/10/24 21:40 01/10/24 21:30 01/10/24 21:20 01/10/24 21:15 01/10/24 21:15 100/71 01/10/24 21:10 01/10/24 21:00 112 H 23 97/68 L 01/10/24 21:00 112 H 23 01/10/24 20:50 113 H 17 01/10/24 20:45 94/75 L 01/10/24 20:45 119 H 18 01/10/24 20:41 117 H 16 89/69 L 01/10/24 20:40 114 H 01/10/24 20:38 117 H 19 01/10/24 20:20 36.7 C 115 H 18 123/76 01/10/24 20:19 Pulse Ox O2 Del Method O2 Flow Rate 01/11/24 11:31 97 Nasal Cannula 4 01/11/24 11:16 92 Nasal Cannula 4 01/11/24 11:01 94 Nasal Cannula 3 01/11/24 10:05 94 Nasal Cannula 3 01/11/24 08:54 01/11/24 08:00 Nasal Cannula 4 01/11/24 08:00 01/11/24 08:00 95 Room Air 01/11/24 08:00 01/11/24 06:00 97 4 01/11/24 06:00 01/11/24 05:37 01/11/24 05:27 01/11/24 05:27 96 01/11/24 05:03 95 4 01/11/24 04:22 95 Room Air 01/11/24 04:00 93 01/11/24 03:30 94 01/11/24 03:00 93 01/11/24 02:00 96 01/11/24 01:20 88 L 01/11/24 01:15 90 01/11/24 01:10 90 01/11/24 01:09 92 01/11/24 01:01 01/11/24 01:01 92 01/11/24 01:01 01/11/24 01:00 91 01/11/24 00:50 77 L 01/11/24 00:45 01/11/24 00:45 87 L 01/11/24 00:40 92 01/11/24 00:30 92 01/11/24 00:30 01/11/24 00:20 95 01/11/24 00:17 94 01/11/24 00:17 94 01/11/24 00:10 97 01/11/24 00:05 99 3 01/11/24 00:00 100 01/11/24 00:00 100 01/10/24 23:51 100 01/10/24 23:50 100 01/10/24 23:45 100 01/10/24 23:45 100 01/10/24 23:40 100 01/10/24 23:30 99 01/10/24 23:30 99 01/10/24 23:20 100 01/10/24 23:15 100 01/10/24 23:15 100 01/10/24 23:10 99 01/10/24 23:05 98 3 01/10/24 23:00 91 01/10/24 23:00 91 01/10/24 22:50 94 01/10/24 22:45 01/10/24 22:45 94 01/10/24 22:40 94 01/10/24 22:38 92 01/10/24 22:38 01/10/24 22:36 01/10/24 22:36 92 01/10/24 22:35 93 01/10/24 22:34 01/10/24 22:34 93 01/10/24 22:31 93 01/10/24 22:31 01/10/24 22:30 91 01/10/24 22:20 94 01/10/24 22:20 93 01/10/24 22:19 01/10/24 22:19 93 01/10/24 22:15 01/10/24 22:15 92 01/10/24 22:10 94 01/10/24 22:05 01/10/24 22:05 92 01/10/24 22:05 93 01/10/24 22:00 93 01/10/24 21:55 01/10/24 21:55 93 01/10/24 21:50 94 01/10/24 21:40 93 01/10/24 21:30 93 01/10/24 21:20 92 01/10/24 21:15 93 01/10/24 21:15 01/10/24 21:10 94 01/10/24 21:00 92 01/10/24 21:00 92 01/10/24 20:50 92 01/10/24 20:45 01/10/24 20:45 90 01/10/24 20:41 91 01/10/24 20:40 01/10/24 20:38 93 Room Air 01/10/24 20:20 98 Room Air 01/10/24 20:19 Room Air Transfer of Care Handoff Completed per policy Notes Mental Status: alert / awake / arousable and participated in evaluation Patient Amnestic to Procedure: Yes Nausea / Vomiting: adequately controlled Pain: adequately controlled Airway Patency, RR, SpO2: stable & adequate BP & HR: stable & adequate Hydration State: stable & adequate Anesthetic Complications: no major complications apparent
--- NOTE | 2024-01-11 13:35 | Electrocardiogram Report ---
Test Reason : Blood Pressure : / mmHG Vent. Rate : 112 BPM Atrial Rate : 112 BPM P-R Int : 140 ms QRS Dur : 072 ms QT Int : 372 ms P-R-T Axes : 081 064 090 degrees QTc Int : 507 ms Sinus tachycardia Nonspecific ST abnormality Abnormal ECG When compared with ECG of 30-JUN-2019 17:30, Nonspecific T wave abnormality no longer evident in Inferior leads Nonspecific T wave abnormality no longer evident in Anterior leads Confirmed by Reza Melvin ([id number]) on 01/11/2024 1:34:41 PM Referred By: REFERRED SELF Confirmed By:Reza Melvin
--- NOTE | 2024-01-11 15:34 | Hospitalist Progress Note ---
Date of Service January 11, 2024 Assessment & Plan (1) Hypotension: Plan: Hypotension Secondary to UGIB History esophageal varices 01/11 status post EGD: - No active bleeding seen. - Grade III esophageal varices with red martine sign. Banded. - Portal hypertensive gastropathy. - Normal duodenal bulb and second portion of the duodenum. - No specimens collected. Hemoglobin admission 11, then 10.0 Received 1 unit of packed RBC Hemoglobin now at 10.0 Platelets 56, given 1 unit of platelet pheresis Platelets still at 39 Given another unit of platelets Clear liquids for 2 days, Protonix IV twice daily x 2 days then Protonix p.o. twice daily x 3 months IV octreotide x 2 days IV antibiotic Carafate for 2 weeks Repeat EGD in 3 months Syncope secondary to orthostasis secondary to above Rule out structural cardiac pathology -Echocardiogram: Pending Acute anemia secondary to UGIB, acute blood loss -Management per above Alcoholic hepatitis, good prognosis with computed Maddrey's DF score of 26.9 points Coagulopathy and thrombocytopenia secondary to liver disease -INR 1.6 -Platelet 39, another unit ordered Hyponatremia, hypokalemia secondary to illness, EtOH abuse -Improving Subclinical hypothyroidism - past history of hyperthyroidism (refused RAIU) as per records Ongoing tobacco/alcohol abuse Alcohol withdrawal protocol Nicotine patch Aspiration precautions - POLITICAL CONSULTANT eval Nicotine patch DVT prophylaxis. SCDs Re: UGIB Full code Admission and Anticipated Discharge Date Admission Date: January 11, 2024 Subjective Follow-up for upper GI bleed, etc. Status post EGD Grade 3 esophageal varices with red martine sign, banding performed Portal hypertensive gastropathy Reports having shivering, abdominal pain with RN Seen resting in bed, sitting up, awake and alert States she feels improved -she remains improving with warm blankets Abdominal pain also seems to be improving no chest pain, dyspnea, palpitations, dizziness Denies confusion, anxiety No other symptoms Review of Systems Review of Systems: all noted and negative except for above Physical Exam Physical Exam: General- oriented x 3, not in distress, speaks in sentences with no effort or accessory muscle use Eyes- anicteric Neck- no JVD Lungs- clear breath sounds bilaterally, no crackles or wheezing Heart- normal rate, regular rhythm; no murmurs Abdomen- normal bowel sounds, nondistended, soft, nontender Extremities- no pretibial edema, no calf tenderness Neuro- alert, oriented x 3; no gross focal neurologic deficits Skin- warm & dry Results & Data Results & Data Vital Signs (Past 12 Hours) Vital Signs Temp Pulse Pulse Pulse Resp BP BP 01/11/24 13:01 37.4 C 68 12 125/77 01/11/24 12:43 37.4 C 71 11 L 122/78 01/11/24 12:28 37.4 C 70 12 115/85 01/11/24 12:12 37.4 C 75 13 114/66 01/11/24 11:31 75 16 96/61 L 01/11/24 11:16 85 16 101/66 01/11/24 11:01 85 16 98/69 L 01/11/24 10:05 37.8 C H 87 16 112/70 01/11/24 08:54 37.1 C 01/11/24 08:00 01/11/24 08:00 112/65 01/11/24 08:00 103 H 13 01/11/24 08:00 102 H 01/11/24 06:00 101 H 15 01/11/24 06:00 105/65 01/11/24 05:37 107 H 01/11/24 05:27 102/69 01/11/24 05:27 108 H 21 01/11/24 05:03 107 H 22 01/11/24 04:22 36.6 C 105 H 18 98/55 L 01/11/24 04:00 110 H 20 120/72 Pulse Ox O2 Del Method O2 Flow Rate 01/11/24 13:01 96 01/11/24 12:43 96 01/11/24 12:28 97 01/11/24 12:12 97 4 01/11/24 11:31 97 Nasal Cannula 4 01/11/24 11:16 92 Nasal Cannula 4 01/11/24 11:01 94 Nasal Cannula 3 01/11/24 10:05 94 Nasal Cannula 3 01/11/24 08:54 01/11/24 08:00 Nasal Cannula 4 01/11/24 08:00 01/11/24 08:00 95 Room Air 01/11/24 08:00 01/11/24 06:00 97 4 01/11/24 06:00 01/11/24 05:37 01/11/24 05:27 01/11/24 05:27 96 01/11/24 05:03 95 4 01/11/24 04:22 95 Room Air 01/11/24 04:00 93 all noted and reviewed including below
[2024-01-11] MEDS: SUCRALFATE 1 GM/10 ML UDC PO SCH (16:33)
[2024-01-11] MEDS: NICOTINE 21 MG/24 HR TDSY TD SCH (20:59)
[2024-01-12 07:51] LABS: Basophils # (auto) 0.02 K/uL (0.00-0.20); Basophils % (auto) 0.4 %; Eosinophils # (auto) 0.06 K/uL (0.00-0.50); Eosinophils % (auto) 1.1 %; Hematocrit (blood only) 24.8 % (37.0-47.0); Hemoglobin 9.1 g/dl (12.0-16.0); Immature Granulocytes # (auto) 0.02 K/uL (0.01-0.20); Immature Granulocytes % (auto) 0.4 %; Lymphocytes # (auto) 0.87 K/uL (1.20-3.40); Lymphocytes % (auto) 15.6 %; Mean Corpuscular Hemoglobin 40.4 pg (25.0-34.0); Mean Corpuscular Hgb Conc 36.7 g/dL (32.0-36.0); Mean Corpuscular Volume 110.2 fL (80.0-100.0); Mean Platelet Volume 12.8 fL (9.4-12.4); Monocytes # (auto) 0.21 K/uL (0.11-0.59); Monocytes % (auto) 3.8 %; Neutrophils # (auto) 4.41 K/uL (1.40-6.50); Neutrophils % (auto) 78.7 %; Platelet Count 44 K/uL (130-400); RDW Coefficient of Variation 19.9 % (11.5-14.5); Red Blood Count 2.25 M/uL (4.20-5.40); White Blood Count 5.59 K/ul (4.8-10.8)
[2024-01-12 08:06] LABS: BUN Creatinine Ratio 18.4 (10-20); Creatinine Clr Calc Pharmacy 124.7 ml/min; Est GFR (African American) 123.6 ml/min; Est GFR (Non-African American) 106.6 ml/min; Potassium 3.6 mmol/L (3.5-5.1)
[2024-01-12 08:28] LABS: Macrocytosis Present; Polychromasia 1+
--- NOTE | 2024-01-12 08:38 | Gastroenterology Progress Note ---
Date of Service January 12, 2024 Assessment & Plan (1) Acute upper gastrointestinal bleeding: Plan: 58 year old female with history of ETOH abuse, known esophageal varicies presenting with hematemesis s/p EGD w/ banding of grade 3 varices with stigmata of recent bleeding. She has remained hemodynamically stable overnight with stable H&H, she notes passage of dark bloody BM this AM, likely residual given stable HGB. - Clear liquid diet for 1 more day, then advance as tolerated to full liquid diet. - Use a proton pump inhibitor IV BID for 2 days then PO BID for 3 months. - PO Liquid Carafate for 2 weeks. - IV Octreotide for 2 days. - Repeat upper endoscopy in 3 months for retreatment. - IV ABx while inpatient - ETOH cessation discussed - Establish with hepatology as an outpatient Recall GI as needed. Thank you for allowing us to participate in the care of this patient. Please call with any acute changes, questions or concerns. Please see addendum below with additional recommendation from my supervising physician. Admission and Anticipated Discharge Date Admission Date: January 11, 2024 Supervising Physician Co-Signing Physician Notes I performed a history and physical examination of the patient today, including specifically on physical exam - soft abdomen. I have discussed the patient's management with the advanced practitioner. Please refer to the nurse practitioner's note for the documented findings and plan of care. No evidence of GI bleeding. H/H stable. Advance diet. Avoid transfusing PLT and PRBC unnecessarily. Recall GI if needed. Subjective Pt was seen and evaluated, chart reviewed. Family at bedside. Feeling better. No further vomiting. Had one BM this AM that was dark red in color. No ABD pain. Tolerating PO intake. HGB 10 --> 9.1 BUN 9 S/P 1 unit RBCs EGD 2023: - No active bleeding seen. - Grade III esophageal varices with red martine sign. Banded. - Portal hypertensive gastropathy. - Normal duodenal bulb and second portion of the duodenum. - No specimens collected. Review of Systems Review of Systems: All systems reviewed & are unremarkable except as noted in HPI & below Physical Exam Constitutional: WD/WN, vitals as above Sitting upright in bed tolerating PO intake Respiratory: normal respiratory effort, lungs clear to auscultation Cardiovascular: Rate/Rhythm: regular rate and regular rhythm Gastrointestinal (Abdomen): normal bowel sounds, soft, nontender, no hepatosplenomegaly Skin: no rashes, warm and dry Results & Data Vital Signs (Past 12 Hours) Vital Signs Pulse Resp BP Pulse Ox 01/11/24 23:00 88 21 94 01/11/24 22:00 75 18 98 01/11/24 21:16 84 18 95 01/11/24 21:16 102/71 01/11/24 21:00 85 23 96 Laboratory Results 01/12/24 01/11/24 Range/Units 07:08 07:54 WBC 5.59 7.21 (4.8-10.8) K/ul RBC 2.25 L 2.48 L (4.20-5.40) M/uL Hgb 9.1 L 10.0 L (12.0-16.0) g/dl Hct 24.8 L 27.8 L (37.0-47.0) % MCV 110.2 H 109.4 H (80.0-100.0) fL MCH 40.4 H 40.3 H (25.0-34.0) pg MCHC 36.7 H 36.0 (32.0-36.0) g/dL RDW Std Deviation 80.0 H 75.7 H (36.4-46.3) fL RDW Coeff of Car 19.9 H 19.3 H (11.5-14.5) % Plt Count 44 L 39 L (130-400) K/uL MPV 12.8 H 12.6 H (9.4-12.4) fL Immature Gran % (Auto) 0.4 0.8 % Neut % (Auto) 78.7 92.2 % Lymph % (Auto) 15.6 5.5 % [place] % (Auto) 3.8 1.0 % Eos % (Auto) 1.1 0.4 % Baso % (Auto) 0.4 0.1 % Neut # (Auto) 4.41 6.64 H (1.40-6.50) K/uL Lymph # (Auto) 0.87 L 0.40 L (1.20-3.40) K/uL [place] # (Auto) 0.21 0.07 L (0.11-0.59) K/uL Eos # (Auto) 0.06 0.03 (0.00-0.50) K/uL Baso # (Auto) 0.02 0.01 (0.00-0.20) K/uL Immature Gran # (Auto) 0.02 0.06 (0.01-0.20) K/uL Absolute Nucleated RBC 0.02 (0.00-0.12) K/uL Nucleated RBC % (auto) 0.3 % Polychromasia 1+ Macrocytosis Present Sodium 134 L 128 L (136-145) mmol/L Potassium 3.6 3.9 (3.5-5.1) mmol/L Chloride 102 95 L (98-107) mmol/L Carbon Dioxide 26 25 (21-32) mmol/L Anion Gap 6 8 (3-11) BUN 9 14 (6-23) mg/dl Creatinine 0.49 L 0.63 (0.6-1.2) mg/dl Est Cr Clr Drug Dosing 124.7 97.0 ml/min Est GFR ( Amer) 123.6 113.8 ml/min Est GFR (Non-Af Amer) 106.6 98.2 ml/min BUN/Creatinine Ratio 18.4 22.2 H (10-20) Glucose 107 H 167 H (70-99(Fasting)) mg/dl Calcium 8.0 L 8.4 L (8.6-10.3) mg/dl Magnesium 2.6 H (1.7-2.4) mg/dl
--- NOTE | 2024-01-12 14:46 | Hospitalist Progress Note ---
Date of Service January 12, 2024 Assessment & Plan (1) Hypotension: Plan: Hypotension Secondary to UGIB History esophageal varices 01/11 status post EGD: - No active bleeding seen. - Grade III esophageal varices with red martine sign. Banded. - Portal hypertensive gastropathy. - Normal duodenal bulb and second portion of the duodenum. - No specimens collected. Hemoglobin admission 11, Received 1 unit of packed RBC Hemoglobin stable around 10 Platelets 30 K Received 2 units of platelet pheresis Platelet now 44 No signs of active bleeding Repeat tomorrow Clear liquid diet, transition to full liquid diet tomorrow Protonix 40 mg IV twice daily last day today, then transition to p.o. twice daily tomorrow, x 3-month Octreotide IV last day today Continue Carafate x 2-week Continue IV ceftriaxone while admitted Will need to establish with GI hepatology service as an outpatient Syncope secondary to orthostasis secondary to above Rule out structural cardiac pathology -Echocardiogram: EF 60 to 65% Left ventricular wall motion is normal No significant valvular pathology Acute anemia secondary to UGIB, acute blood loss -Management per above Alcoholic hepatitis - good prognosis with computed Maddrey's DF score of 26.9 points Coagulopathy and thrombocytopenia secondary to liver disease -INR 1.6 -Platelet 44k Hyponatremia, hypokalemia secondary to illness, EtOH abuse -Resolved Subclinical hypothyroidism - past history of hyperthyroidism (refused RAIU) as per records Ongoing tobacco/alcohol abuse No signs of overt withdrawal at this point Alcohol withdrawal protocol Nicotine patch Aspiration precautions - POND TENDER eval: Suspect episodes of reflux and/or esophageal dysmotility Would benefit from a barium swallow study as an outpatient DVT prophylaxis. SCDs Re: UGIB Full code Disposition Anticipate return to home when medically stable Admission and Anticipated Discharge Date Admission Date: January 11, 2024 Subjective Follow-up for upper GI bleed secondary to esophageal varices, etc. Seen resting in bed, comfortable, not in distress In good spirits States she feels improved overall Has minimal melena but no abdominal pain, nausea vomiting no chest pain, dyspnea, palpitations, dizziness No other new symptom Review of Systems Review of Systems: all noted and negative except for above Physical Exam Physical Exam: General- oriented x 3, not in distress, speaks in sentences with no effort or accessory muscle use Eyes- anicteric Neck- no JVD Lungs- clear breath sounds bilaterally, no rales/wheezes Heart- normal rate, regular rhythm; no murmurs Abdomen- normal bowel sounds, nondistended, soft, nontender Extremities- no pretibial edema, no calf tenderness Neuro- alert, oriented x 3; no gross focal neurologic deficits Skin- warm & dry Results & Data Results & Data Vital Signs (Past 12 Hours) Vital Signs Temp Pulse Resp BP Pulse Ox O2 Del Method O2 Flow Rate 01/12/24 11:27 94 H 20 114/74 90 Room Air 01/12/24 09:57 93 Room Air 01/12/24 08:00 85 01/12/24 08:00 Room Air 01/12/24 07:18 132/79 01/12/24 07:18 82 23 97 Nasal Cannula 2 01/12/24 07:18 36.7 C all noted and reviewed including below
[2024-01-12] MEDS: PANTOprazole 40 MG in SYRINGE 0 ML IV SCH (21:41)
[2024-01-13 08:53] LABS: Hematocrit (blood only) 27.4 % (37.0-47.0); Hemoglobin 10.1 g/dl (12.0-16.0); Mean Corpuscular Hemoglobin 40.9 pg (25.0-34.0); Mean Corpuscular Hgb Conc 36.9 g/dL (32.0-36.0); Mean Corpuscular Volume 110.9 fL (80.0-100.0); Mean Platelet Volume 12.5 fL (9.4-12.4); Platelet Count 65 K/uL (130-400); RDW Coefficient of Variation 19.1 % (11.5-14.5); Red Blood Count 2.47 M/uL (4.20-5.40); White Blood Count 6.16 K/ul (4.8-10.8)
[2024-01-13 09:09] LABS: BUN Creatinine Ratio 15.6 (10-20); Calcium 8.3 mg/dl (8.6-10.3); Creatinine Clr Calc Pharmacy 135.8 ml/min; Est GFR (African American) 127.1 ml/min; Est GFR (Non-African American) 109.7 ml/min; Potassium 3.4 mmol/L (3.5-5.1)
[2024-01-13 09:11] LABS: Basophils # (auto) 0.01 K/uL (0.00-0.20); Basophils % (auto) 0.2 %; Eosinophils # (auto) 0.04 K/uL (0.00-0.50); Eosinophils % (auto) 0.6 %; Immature Granulocytes # (auto) 0.03 K/uL (0.01-0.20); Immature Granulocytes % (auto) 0.5 %; Lymphocytes # (auto) 0.87 K/uL (1.20-3.40); Lymphocytes % (auto) 14.1 %; Macrocytosis Present; Monocytes # (auto) 0.48 K/uL (0.11-0.59); Monocytes % (auto) 7.8 %; Neutrophils # (auto) 4.73 K/uL (1.40-6.50); Neutrophils % (auto) 76.8 %
--- NOTE | 2024-01-13 09:59 | Gastroenterology Progress Note ---
Date of Service January 13, 2024 Assessment & Plan (1) Acute upper gastrointestinal bleeding: Plan: 58 year old female with history of ETOH abuse, known esophageal varicies presenting with hematemesis s/p EGD w/ banding of grade 3 varices with stigmata of recent bleeding. She has remained hemodynamically stable overnight with stable H&H, she notes passage of dark bloody BM this AM, likely residual given stable HGB. GI was recalled to evaluate given report of 5 bloody stools overnight, HGB actually improved a point. Discussed differential to again include residual bleeding vs lower GI blood loss. EGD/Colon was offered. She is hesitant to undergo these procedures. Advised to let us know by 1500 so we could plan for testing accordingly. Clear liquid diet today. Use a proton pump inhibitor IV BID for 2 days then PO BID for 3 months. PO Liquid Carafate for 2 weeks. IV Octreotide for 2 days. Repeat upper endoscopy in 3 months for retreatment. IV ABx while inpatient ETOH cessation discussed Establish with hepatology as an outpatient Admission and Anticipated Discharge Date Admission Date: January 11, 2024 Supervising Physician Co-Signing Physician Notes I performed a history and physical examination of the patient today, including specifically on physical exam - soft abdomen. I have discussed the patient's management with the advanced practitioner. Please refer to the nurse practitioner's note for the documented findings and plan of care. H/H is improved despite the reported bloody BM. Probably old blood or could be hemorrhoidal. She will benefit from a colonoscopy but she wants to think about it. Subjective GI was asked to re-evaluate. Had 5 bloody stools since yesterday. HGB stable, improved from day prior. No report of emesis. EGD 2023: - No active bleeding seen. - Grade III esophageal varices with red martine sign. Banded. - Portal hypertensive gastropathy. - Normal duodenal bulb and second portion of the duodenum. - No specimens collected. Colonoscopy: none Review of Systems Review of Systems: All systems reviewed & are unremarkable except as noted in HPI & below Physical Exam Constitutional: WD/WN, vitals as above Respiratory: normal respiratory effort, lungs clear to auscultation Cardiovascular: Rate/Rhythm: regular rate Gastrointestinal (Abdomen): Percussion/Palpation: abdomen soft; abdomen nontender, no guarding and abdomen not rigid Skin: no rashes, warm and dry Results & Data Vital Signs (Past 12 Hours) Vital Signs Temp Pulse Resp BP BP Pulse Ox O2 Del Method 01/13/24 08:47 37.0 C 94 H 18 144/80 H 98 Nasal Cannula 01/13/24 02:34 36.9 C 89 22 148/79 H 94 Nasal Cannula 01/12/24 22:56 37.4 C 104 H 22 127/76 92 Room Air 01/12/24 22:30 Room Air O2 Flow Rate 01/13/24 08:47 3 01/13/24 02:34 3 01/12/24 22:56 01/12/24 22:30 Laboratory Results 01/13/24 Range/Units 08:15 WBC 6.16 (4.8-10.8) K/ul RBC 2.47 L (4.20-5.40) M/uL Hgb 10.1 L (12.0-16.0) g/dl Hct 27.4 L (37.0-47.0) % MCV 110.9 H (80.0-100.0) fL MCH 40.9 H (25.0-34.0) pg MCHC 36.9 H (32.0-36.0) g/dL RDW Std Deviation 77.0 H (36.4-46.3) fL RDW Coeff of Car 19.1 H (11.5-14.5) % Plt Count 65 L (130-400) K/uL MPV 12.5 H (9.4-12.4) fL Immature Gran % (Auto) 0.5 % Neut % (Auto) 76.8 % Lymph % (Auto) 14.1 % [place] % (Auto) 7.8 % Eos % (Auto) 0.6 % Baso % (Auto) 0.2 % Neut # (Auto) 4.73 (1.40-6.50) K/uL Lymph # (Auto) 0.87 L (1.20-3.40) K/uL [place] # (Auto) 0.48 (0.11-0.59) K/uL Eos # (Auto) 0.04 (0.00-0.50) K/uL Baso # (Auto) 0.01 (0.00-0.20) K/uL Immature Gran # (Auto) 0.03 (0.01-0.20) K/uL Macrocytosis Present Sodium 130 L (136-145) mmol/L Potassium 3.4 L (3.5-5.1) mmol/L Chloride 96 L (98-107) mmol/L Carbon Dioxide 27 (21-32) mmol/L Anion Gap 7 (3-11) BUN 7 (6-23) mg/dl Creatinine 0.45 L (0.6-1.2) mg/dl Est Cr Clr Drug Dosing 135.8 ml/min Est GFR ( Amer) 127.1 ml/min Est GFR (Non-Af Amer) 109.7 ml/min BUN/Creatinine Ratio 15.6 (10-20) Glucose 101 H (70-99(Fasting)) mg/dl Calcium 8.3 L (8.6-10.3) mg/dl
--- NOTE | 2024-01-13 14:49 | Hospitalist Progress Note ---
Date of Service January 13, 2024 Assessment & Plan (1) Hypotension: Plan: Hypotension Secondary to UGIB History esophageal varices Patient presented with abdominal pain and melanotic stool for 2 days 01/11 status post EGD: - No active bleeding seen. - Grade III esophageal varices with red martine sign. Banded. - Portal hypertensive gastropathy. - Normal duodenal bulb and second portion of the duodenum. - No specimens collected. Hemoglobin admission 11, Received 1 unit of packed RBC Hemoglobin stable around 10 Full liquid diet Overnight, there was concern of dark bloody bowel movement. GI discussed with patient regarding undergoing repeat EGD and colonoscopy. Patient reports that she wants to discuss that with her family. Protonix 40 mg IV twice daily;then transition to p.o. twice daily x 3-month Continue Carafate x 2-week Continue antibiotic while admitted Will need to establish with GI hepatology service as an outpatient Syncope secondary to orthostasis secondary to above -Echocardiogram: EF 60 to 65% Left ventricular wall motion is normal No significant valvular pathology Monitor on telemetry Hyponatremia, hypokalemia secondary to illness, EtOH abuse -Resolved -Started on fluid restriction. Continue to monitor Subclinical hypothyroidism - past history of hyperthyroidism (refused RAIU) as per records Ongoing tobacco/alcohol abuse No signs of overt withdrawal at this point Alcohol withdrawal protocol Nicotine patch Aspiration precautions - WATCH MECHANIC eval: Suspect episodes of reflux and/or esophageal dysmotility Would benefit from a barium swallow study as an outpatient DVT prophylaxis. SCDs Re: UGIB Full code Time spent evaluating patient, direct bedside care, chart review, placing orders, interpretation of diagnostic studies, discussion with consultants, patient, and family members, as well as other required patient management activities is 50-minute Please note the above document was generated using voice recognition software. It may contain grammatical, syntax or spelling errors. Any formal questions or concerns about the content, text or information contained within the body of this dictation should be directly addressed to the provider for clarification Admission and Anticipated Discharge Date Admission Date: January 11, 2024 Subjective Patient seen and examined at bedside. Reported by RN that patient had bright red blood per rectum. Patient reports that she is starting to have brown stools. Review of Systems Review of Systems: All systems reviewed & are unremarkable except as noted in Subjective Physical Exam Physical Exam: Constitutional: WD/WN, vitals as above, NAD, sitting up in bed, pleasant, conversing easily Respiratory: normal respiratory effort, lungs clear to auscultation, no wheeze, rales, rhonchi. Normal insp/exp effort, no accessory muscle use Cardiovascular: RRR, no murmur, no edema Vessels: no JVD or carotid bruit Chest: normal inspection of chest Abdomen: soft, non-tender Musculoskeletal: no cyanosis or clubbing, extremities motor strength 5/5 Skin: no rashes, warm and dry normal turgor Neurologic: PERRL, EOMI, accommodation nl, no face palsy, no dysarthria CN's II- XI intact bilaterally and moves all extremities Psychiatric: A+Ox3, euthymic affect Results & Data Results & Data Vital Signs (Past 12 Hours) Vital Signs Temp Pulse Pulse Resp BP Pulse Ox O2 Del Method 01/13/24 11:09 37.0 C 78 17 124/65 98 Nasal Cannula 01/13/24 08:47 37.0 C 94 H 18 144/80 H 98 Nasal Cannula 01/13/24 07:37 78 O2 Flow Rate 01/13/24 11:09 3 01/13/24 08:47 3 01/13/24 07:37
[2024-01-13] MEDS: POTASSIUM CHLORIDE / WTR 10 MEQ/100 ML PLCT IV SCH (18:43)
[2024-01-14 08:12] LABS: Basophils # (auto) 0.02 K/uL (0.00-0.20); Basophils % (auto) 0.4 %; Eosinophils # (auto) 0.07 K/uL (0.00-0.50); Eosinophils % (auto) 1.3 %; Hematocrit (blood only) 26.7 % (37.0-47.0); Hemoglobin 9.7 g/dl (12.0-16.0); Immature Granulocytes # (auto) 0.03 K/uL (0.01-0.20); Immature Granulocytes % (auto) 0.5 %; Lymphocytes # (auto) 1.13 K/uL (1.20-3.40); Lymphocytes % (auto) 20.2 %; Mean Corpuscular Hemoglobin 40.2 pg (25.0-34.0); Mean Corpuscular Hgb Conc 36.3 g/dL (32.0-36.0); Mean Corpuscular Volume 110.8 fL (80.0-100.0); Mean Platelet Volume 12.6 fL (9.4-12.4); Monocytes # (auto) 0.98 K/uL (0.11-0.59); Monocytes % (auto) 17.5 %; Neutrophils # (auto) 3.37 K/uL (1.40-6.50); Neutrophils % (auto) 60.1 %; Platelet Count 73 K/uL (130-400); RDW Coefficient of Variation 18.4 % (11.5-14.5); Red Blood Count 2.41 M/uL (4.20-5.40)
[2024-01-14 08:39] LABS: BUN Creatinine Ratio 13.6 (10-20); Calcium 8.1 mg/dl (8.6-10.3); Creatinine Clr Calc Pharmacy 138.9 ml/min; Est GFR (African American) 128.1 ml/min; Est GFR (Non-African American) 110.5 ml/min; Potassium 3.5 mmol/L (3.5-5.1)
[2024-01-14 08:50] LABS: Macrocytosis Present; Polychromasia 1+
[2024-01-14] MEDS: PANTOprazole 40 MG TAB PO SCH (08:57)
--- NOTE | 2024-01-14 12:22 | Hospitalist Progress Note ---
Date of Service January 14, 2024 Assessment & Plan (1) Hypotension: Plan: Hypotension Secondary to UGIB History esophageal varices Patient presented with abdominal pain and melanotic stool for 2 days 01/11 status post EGD: - No active bleeding seen. - Grade III esophageal varices with red martine sign. Banded. - Portal hypertensive gastropathy. - Normal duodenal bulb and second portion of the duodenum. - No specimens collected. Hemoglobin admission 11, Received 1 unit of packed RBC Hemoglobin stable around 10 Diet advance to normal diet full Overnight, there was concern of dark bloody bowel movement. GI discussed with patient regarding undergoing repeat EGD and colonoscopy. Patient reports that she wants to discuss that with her family. On p.o. Protonix; 3-month. Continue Carafate x 2-week Continue antibiotic while admitted Will need to establish with GI hepatology service as an outpatient Hyponatremia Sodium down trended to 126 today Patient was on clear liquid diet for last couple of days Diet advance to normal diet; fluid restriction is started Urine osmolarity and electrolytes ordered Appreciate nephrology input Syncope secondary to orthostasis secondary to above -Echocardiogram: EF 60 to 65% Left ventricular wall motion is normal No significant valvular pathology Monitor on telemetry Hyponatremia, hypokalemia secondary to illness, EtOH abuse -Resolved -Started on fluid restriction. Continue to monitor Subclinical hypothyroidism - past history of hyperthyroidism (refused RAIU) as per records Ongoing tobacco/alcohol abuse No signs of overt withdrawal at this point Alcohol withdrawal protocol Nicotine patch Aspiration precautions - KILN CLEANER eval: Suspect episodes of reflux and/or esophageal dysmotility Would benefit from a barium swallow study as an outpatient DVT prophylaxis. SCDs Re: UGIB Full code Time spent evaluating patient, direct bedside care, chart review, placing orders, interpretation of diagnostic studies, discussion with consultants, patient, and family members, as well as other required patient management activities is 50-minute Please note the above document was generated using voice recognition software. It may contain grammatical, syntax or spelling errors. Any formal questions or concerns about the content, text or information contained within the body of this dictation should be directly addressed to the provider for clarification Admission and Anticipated Discharge Date Admission Date: January 11, 2024 Subjective Patient seen and examined at bedside. Patient comfortable; not in distress. Having brown stool. Review of Systems Review of Systems: All systems reviewed & are unremarkable except as noted in Subjective Physical Exam Physical Exam: Constitutional: WD/WN, vitals as above, NAD, sitting up in bed, pleasant, conversing easily Respiratory: normal respiratory effort, lungs clear to auscultation, no wheeze, rales, rhonchi. Normal insp/exp effort, no accessory muscle use Cardiovascular: RRR, no murmur, no edema Vessels: no JVD or carotid bruit Chest: normal inspection of chest Abdomen: soft, non-tender Musculoskeletal: no cyanosis or clubbing, extremities motor strength 5/5 Skin: no rashes, warm and dry normal turgor Neurologic: PERRL, EOMI, accommodation nl, no face palsy, no dysarthria CN's II- XI intact bilaterally and moves all extremities Psychiatric: A+Ox3, euthymic affect Results & Data Results & Data Vital Signs (Past 12 Hours) Vital Signs Temp Pulse Pulse Resp BP Pulse Ox O2 Del Method 01/14/24 11:23 36.8 C 79 18 154/90 H 92 Room Air 01/14/24 07:35 36.8 C 72 20 154/88 H 92 Room Air 01/14/24 03:06 36.6 C 78 18 147/84 H 92 Room Air
--- NOTE | 2024-01-14 12:58 | Nephrology Consultation ---
Date of Consultation January 14, 2024 Assessment & Plan (1) Hyponatremia: 58-year-old female with ongoing heavy chronic alcohol use admitted with syncope related with hypotension. Hyponatremia is in the setting of most likely liver cirrhosis and ongoing alcohol intake with very poor intake of solid food specially protein. she has no longer hypotensive. recommendation repeat urine Osmo and urine sodium and urine analysis fluid restriction 1200 mL per day increase protein intake normal saline at 75 mL/hour for a 1000 mL and then stop Lasix 20 mg IV give 8 hour to cause free water diuresis. after the result of urine osmolarity I might make some changes we can still do BMP check once daily History of Present Illness Reason for Consultation: hyponatremia Attending Physician: Kirk Vitale MD History of Present Illness 58-year-old female with liver Dz. She was seen in GI clinic in 2019 for alcoholic hepatitis but was lost to f/u after. however she does have esophageal varices confirmed on EGD in 2019. she is still drinking daily alcohol. Presented and admitted to the hospital 3 days ago after she had syncopal episode at home. she did have low blood pressure with readings as low as 76 systolic documented in the hospital. does not appear she was on any diuretics prior to hospitalization. sodium was 125 on admission and prior to that in 2019 she had normal sodium. however since admission sodium initially improved all the way to 134 but for the last 2 days it has been dropping and is down to 126 now. during this hospitalization she also had some GI bleeding for which GI has seen the patient but no endoscopic procedure done. Hemoglobin is currently 9.7 and is in the up trend. she is making urine but unclear amount Physical Exam Physical Exam: Constitutional: No distress. Normal Speech Respiratory: normal respiratory effort, lungs clear to auscultation, Cardiovascular: RRR, no murmur, no edema no JVD Chest: b/l Clear Abdomen: soft, non-tender Musculoskeletal: no cyanosis or clubbing, extremities motor strength 5/5 Skin: no rashes, warm and dry normal turgor Neurologic: No focal deficit Psychiatric: A+Ox3, euthymic affect Allergies Allergy/AdvReac Type Severity Reaction Status Date / Time gluten Allergy Unknown Hives Verified 06/28/19 17:00 prednisone AdvReac Intermediate Nausea,vomiting Verified 06/28/19 17:00 and diarrhea Home Medications Medication Instructions Recorded Confirmed Type fluticasone propionate 50 2 spray intranasal DAILY PRN 06/28/19 01/10/24 History mcg/actuation nasal Allergy Symptoms spray,suspension (Flonase Allergy Relief) oregano oil 1,500 mg capsule 0 mg PO DAILY 06/28/19 01/10/24 History pyridoxine (vitamin B6) 100 mg 100 mg PO DAILY 06/28/19 01/10/24 History tablet (Vitamin B-6) Patient History Medical History Encounter for pre-operative examination Celiac disease Tobacco use Alcohol use Colposcopy (06/23/13) Surgical History H/O eye surgery Family History Other Prostate cancer Stroke Social History Smoking Status: Current every day smoker Tobacco Type: Cigarettes Second Hand Exposure: No; Do You Dip or Chew Tobacco: No; Tobacco Cessation Education Requested by Patient: No Hx Alcohol Use: Yes Alcohol type: hard liquor Alcohol type Comment: h/o heavy vodka intake, stopped drinking 3 weeks ago Hx Substance Use: No Preferred Language: Turkish Communication Ability: Effective Horticulture Instructor Required: No Beliefs That Will Affect Care: None marital status: Single Current Living Situation: Spouse Current Living Situation Comment: Tien Nuñez current occupational status: unemployed Other Information That Helps Us Care for You: No Feels Safe at Home: Yes Safety Concerns: Feels Safe At This Time Assistive Devices: None Results & Data Vital Signs (Past 12 Hours) Vital Signs Temp Pulse Pulse Resp BP Pulse Ox O2 Del Method 01/14/24 11:23 36.8 C 79 18 154/90 H 92 Room Air 01/14/24 07:35 36.8 C 72 20 154/88 H 92 Room Air 01/14/24 03:06 36.6 C 78 18 147/84 H 92 Room Air Laboratory Results reviewed the sodium trend with 125 on admission then improved to 134 and now downtrending and down to 126 urine osmolarity 288 urine sodium 35
[2024-01-14] MEDS: SODIUM CHLORIDE 0.9% 1,000 ML IV SCH (15:31)
[2024-01-14] MEDS: FUROSEMIDE INJ 20 MG/2 ML VIAL IV SCH (17:39)
[2024-01-14] MEDS: POTASSIUM CHLORIDE CRTAB 20 MEQ TABCR PO SCH (21:11)
[2024-01-14 22:34] LABS: Urine Potassium 14.3 mmol/L
[2024-01-15 08:02] LABS: Basophils # (auto) 0.03 K/uL (0.00-0.20); Basophils % (auto) 0.6 %; Eosinophils # (auto) 0.12 K/uL (0.00-0.50); Eosinophils % (auto) 2.3 %; Hematocrit (blood only) 29.6 % (37.0-47.0); Hemoglobin 10.7 g/dl (12.0-16.0); Immature Granulocytes # (auto) 0.07 K/uL (0.01-0.20); Immature Granulocytes % (auto) 1.3 %; Lymphocytes # (auto) 1.34 K/uL (1.20-3.40); Lymphocytes % (auto) 25.4 %; Mean Corpuscular Hemoglobin 39.9 pg (25.0-34.0); Mean Corpuscular Hgb Conc 36.1 g/dL (32.0-36.0); Mean Corpuscular Volume 110.4 fL (80.0-100.0); Mean Platelet Volume 12.5 fL (9.4-12.4); Monocytes # (auto) 1.01 K/uL (0.11-0.59); Monocytes % (auto) 19.2 %; Neutrophils % (auto) 51.2 %; Platelet Count 108 K/uL (130-400); RDW Standard Deviation 72.4 fL (36.4-46.3); Red Blood Count 2.68 M/uL (4.20-5.40); White Blood Count 5.27 K/ul (4.8-10.8)
[2024-01-15 08:16] LABS: Calcium 8.6 mg/dl (8.6-10.3); Potassium 3.5 mmol/L (3.5-5.1)
[2024-01-15 08:22] LABS: BUN Creatinine Ratio 10.4 (10-20); Creatinine Clr Calc Pharmacy 127.3 ml/min; Est GFR (African American) 124.4 ml/min; Est GFR (Non-African American) 107.4 ml/min
[2024-01-15 08:27] LABS: Polychromasia 1+
--- NOTE | 2024-01-15 10:03 | Nephrology Progress Note ---
Date of Service January 15, 2024 Assessment & Plan Admission and Anticipated Discharge Date Admission Date: January 11, 2024 Subjective Assessment & Plan (1) Hyponatremia: 58-year-old female with ongoing heavy chronic alcohol use admitted with syncope related with hypotension. Hyponatremia is in the setting of most likely liver cirrhosis and ongoing alcohol intake with very poor intake of solid food specially protein. she has no longer hypotensive. na did go up from 126 to 131 after Lasix and Saline Combo. . fluid restriction 1200 mL per day increase protein intake Not sure how she does with F/u Given her past History--No lasix and no Meds for Low Na S--No new issues. Vital signs are fine. Eating ??. Na went up. Making urine ?? amount. getting Discharged. Physical Exam Physical Exam: Constitutional: No distress. Normal Speech Respiratory: normal respiratory effort, lungs clear to auscultation, Cardiovascular: RRR, no murmur, no edema no JVD Chest: b/l Clear Abdomen: soft, non-tender Musculoskeletal: no cyanosis or clubbing, extremities motor strength 5/5 Skin: no rashes, warm and dry normal turgor Neurologic: No focal deficit Psychiatric: A+Ox3, euthymic affect Results & Data Vital Signs (Past 12 Hours) Vital Signs Temp Pulse Resp BP Pulse Ox O2 Del Method 01/15/24 07:45 36.6 C 74 17 143/81 H 92 Room Air 01/15/24 03:38 36.9 C 67 18 132/85 94 Room Air 01/14/24 23:09 36.9 C 73 20 130/79 91 Room Air
--- NOTE | 2024-01-15 15:49 | Discharge Summary ---
Date of Service January 15, 2024 Admission HPI Per Admitting Provider History obtained from patient and records. Medical history significant for alcoholic liver disease, esophageal varices, celiac disease, hyperthyroidism as per records, ongoing tobacco/alcohol abuse. Last confinement 2018 for alcoholic hepatitis. Patient discharged on prednisone course. 2 weeks history of junky cough symptoms without chest pain or SOB. Not sure about sick contacts. Admits to coughing with meals/water intake if not careful. Melanotic stools noted 2 days ago without abdominal pain. Patient felt lightheaded the whole day yesterday. Transient syncopal event witnessed by on getting up. Subsequent hematemesis. Lowest SBP of 70s documented at the ER. Medical History as above 2018 EGD showed nonbleeding esophageal varices, flattened mucosa duodenum consistent with celiac disease. 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 Admission Exam Per Admitting Provider GENERAL: Comfortable, pleasant, no respiratory distress SKIN: Pallor, warm HEENT: Bespectacled, pale palpebral conjunctivae, no ptosis, dry buccal mucosa NECK : Supple, no tenderness CHEST : Decreased breath sounds, no tenderness HEART : Tachycardic, no obvious murmurs ABDOMEN: Some distention, nontender EXTREMITIES : No LE swelling/tenderness, no other conspicuous deformities noted NEUROLOGIC : Coherent, no facial asymmetry, no other gross focality Principal Diagnosis Upper GI bleed Hyponatremia Discharge Exam Constitutional: WD/WN, vitals as above, NAD, sitting up in bed, pleasant, c onversing easily Respiratory: normal respiratory effort, lungs clear to auscultation, no wheeze, rales, rhonchi. Normal insp/exp effort, no accessory muscle use Cardiovascular: RRR, no murmur, no edema Vessels: no JVD or carotid bruit Chest: normal inspection of chest Abdomen: normal bowel sounds, soft, nontender, no hepatosplenomegaly Musculoskeletal: no cyanosis or clubbing, extremities motor strength 5/5 Skin: no rashes, warm and dry normal turgor Neurologic: PERRL, EOMI, accommodation nl, no face palsy, no dysarthria CN's II- XI intact bilaterally and moves all extremities Psychiatric: A+Ox3, euthymic affect Discharge Data Allergies Allergy/AdvReac Type Severity Reaction Status Date / Time gluten Allergy Unknown Hives Verified 06/28/19 17:00 prednisone AdvReac Intermediate Nausea,vomiting Verified 06/28/19 17:00 and diarrhea Consultations 01/10/24 21:30 ED Decision to Admit Stat 01/10/24 21:56 Consult Gastroenterology Routine 01/14/24 09:32 Consult Nephrology Routine Procedures Performed Operation Date: 01/11/24 16:30 Actual Procedures p EGD Banding of Varices - John Good MD Ordered Studies 01/11/24 00:51 US abdomen ltd ascites Stat Hospital Course (1) Hypotension: Hypotension Secondary to UGIB History esophageal varices Patient presented with abdominal pain and melanotic stool for 2 days 01/11 status post EGD: - No active bleeding seen. - Grade III esophageal varices with red martine sign. Banded. - Portal hypertensive gastropathy. - Normal duodenal bulb and second portion of the duodenum. - No specimens collected. Hemoglobin admission 11; received 1 unit of blood Patient's hemoglobin remained stable throughout the hospitalization. She was started on Protonix 40 mg twice daily as per GI recommendation. She was also started on Carafate as per the recommendation. Patient was discharged home with instruction to follow-up with GI as outpatient. Hyponatremia Sodium down trended to 126 during the hospitalization Likely result of clear liquid diet, low sugar diet Nephrology was consulted; patient was treated with fluid restriction and IV Lasix Patient's sodium improved to 131 at discharge. Patient was discharged home with instruction to follow-up with PCP and obtain BMP. Please note the above document was generated using voice recognition software. It may contain grammatical, syntax or spelling errors. Any formal questions or concerns about the content, text or information contained within the body of this dictation should be directly addressed to the provider for clarification Total Time Total Time Spent Total Time Spent (In Minutes): 45 Total Time Includes: Examination of the Patient, Discharge Planning, Medication Reconciliation, Communication With Other Providers and Other Discharge Plan Discharge Items Patient Disposition: Home - Self-Care Reason For Visit: HYPOTENSION, GI BLEED Discharge Diagnosis: Upper GI bleed secondary to varices; status post banding Hyponatremia Activity: Resume your previous activity Non-emergency contact: Primary Care Provider Call non-emergency contact if: you have any medication questions and your symptoms worsen Follow-up/Referrals: Eryn DevlinDO [Outside Practitioners] - (Date & Time 02/03/2024 1:40 PM Provider Eryn Devlin DO Department [facility] ) John Good MD [Physician] - (The GI office will contact you for a follow up appointment/testing.) Misael Vail MD [Outside Practitioners] - (Date & Time 01/22/2024 3:20 PM Provider Misael Vail MD Department [facility] ) Diet: Regular Addtl Attending Provider Instructions: You were admitted to the hospital due to upper GI bleed. You underwent banding of the varices by GI on January 11. They recommend following medication: 1) Protonix 40 mg twice daily for 3 months 2) Carafate 4 times a day for 2 weeks You are also found to have low sodium level during the hospitalization. Please limit your fluid intake to 1500 mL. This includes water, soda or any other fluid. Please increase protein intake. You will receive a call from the GI department regarding follow-up. An appointment with your primary care doctor has been set up Pending Studies at Discharge: No Stand-Alone Forms: My [facility], Smoking Cessation Medications and DC Order Prescriptions: New sucralfate 100 mg/mL Suspension 1 g PO QID 14 Days Qty: 560 0RF pantoprazole 40 mg Tablet,Delayed Release (Dr/Ec) 40 mg PO BID Qty: 180 0RF Continued pyridoxine (vitamin B6) [Vitamin B-6] 100 mg Tablet 100 mg PO DAILY fluticasone propionate [Flonase Allergy Relief] 50 mcg/actuation [place],Suspension 2 spray INTRANASAL DAILY PRN (Reason: Allergy Symptoms) oregano oil 1,500 mg Capsule 0 mg PO DAILY Discharge Orders: Discharge Order (Routine); Ordered 01/15/24 Ordered By: Kirk Vitale Admission Data Admit Date/Time: 01/11/24 00:47 Attending Provider: Kirk Vitale Admit Provider: Johnathan Arias Primary Care Provider: Misael Mejia Other Providers: Johnathan Arias; Glenn Madrigal; Adela Aguiar; Kip Berger; Prachi Langston Japheth E.; Ilana Fajardo; Patricia Luis Other Interventions: Discharge Summary Assessment (RN) Last Done: 01/15/24 10:30
== END 2024-01-15 11:15 | disposition home or self-care (01) | DRG 378 ==
LOC: ED 20:11 → 1E 01-11 00:47 → SUATTDRO 01-11 00:47 → 1E 01-11 04:18 → 2S 01-12 21:59

== ENCOUNTER 2024-06-03 06:22 | Observation (INO) ==
[2024-06-03] MEDS: OPTIRAY 320 100ml IV ONE (15:16)
--- NOTE | 2024-06-03 16:10 | Electrocardiogram Report ---
Test Reason : Blood Pressure : / mmHG Vent. Rate : 107 BPM Atrial Rate : 113 BPM P-R Int : 140 ms QRS Dur : 078 ms QT Int : 370 ms P-R-T Axes : 028 024 066 degrees QTc Int : 493 ms Sinus tachycardia with occasional Premature ventricular complexes Otherwise normal ECG When compared with ECG of 13-APR-2024 20:33, Premature ventricular complexes are now Present Confirmed by Reza Melvin ([id number]) on 06/03/2024 4:09:43 PM Referred By: REFERRED SELF Confirmed By:Reza Melvin
--- NOTE | 2024-06-03 16:32 | CT Scan Report ---
Sheyla Melton CT SCAN OF THE ABDOMEN AND PELVIS WITH IV CONTRAST CLINICAL HISTORY: Generalized abdominal pain. Hematemesis. COMPARISON STUDY: MRCP dated 06/29/2019. TECHNIQUE: Following the IV administration of 94 cc of Optiray 320, CT scan of the abdomen and pelvi s is performed from the lung bases to the proximal femora. Images are reviewed in the axial, sagittal , and coronal planes. IV contrast was administered without complication. A dose lowering technique wa s utilized adhering to the principles of ALARA. FINDINGS: Lung bases: The heart is normal in size and without pericardial effusion. There is coronary artery at herosclerosis. Emphysematous change is seen at the lung bases. There is bibasilar scarring/atelectasi s. No airspace consolidation or large pleural effusion is identified. There is a small hiatal hernia. Esophageal varices are noted. Liver: The contrast-enhanced liver is cirrhotic in morphology and heterogeneous in attenuation. There is nodularity of the hepatic surface contour. Attenuation is diffusely diminished indicating steatos is. There is no intrahepatic biliary ductal dilatation. The hepatic veins and portal veins are patent . There is heterogeneous enhancement/fibrosis seen within the right lobe at the dome and anteriorly. Overlying capsular retraction is noted. Gallbladder: There are calcified gallstones with no CT evidence of acute cholecystitis. Spleen: Normal in size and attenuation. Pancreas: The pancreas is normal as imaged. Collaterals are seen around the pancreatic head. Adrenal glands: Unremarkable. Kidneys: The contrast enhanced kidneys are normal in size and without hydronephrosis. The kidneys enh ance symmetrically. Abdominal vasculature: The abdominal aorta is normal in course and caliber noting moderate to advance d atherosclerotic calcification. Bowel: No bowel obstruction is seen. There is mild to moderate colonic fecal retention. Mild wall thi ckening of the right colon is nonspecific and likely represents portal colopathy. The appendix is we ll-visualized and normal. Peritoneum: There is no intraperitoneal free air or abdominal ascites. Lymphadenopathy: None. Pelvic viscera: The bladder, uterus, and adnexa are normal as visualized. Skeletal structures: The skeletal structures are osteopenic. Mild to moderate lumbosacral spondylosis is observed. No lytic or blastic lesions are seen. IMPRESSION: 1. No acute infectious or inflammatory findings are identified in the abdomen or pelvis. 2. The liver is cirrhotic in morphology, steatotic, and heterogeneous in attenuation. 3. There is heterogeneous enhancement/fibrosis throughout the right hepatic lobe with associated caps ular retraction. A nonemergent/outpatient MRI of the liver is recommended to exclude underlying hepat ic mass lesion. This should also be correlated with serum AFP levels. 4. Esophageal varices indicate portal hypertension. 5. Mild wall thickening of the right colon is nonspecific and likely represents portal colopathy. 6. Cholelithiasis. 7. Additional findings as above. ACT 112: Positive. There are findings on this exam that require communication between the performing entity and the patient following Patient Test Result Information Act ([place] Act 112) guidelines. Electronically signed by: Carroll Molina M.D. 06/03/2024 10:07 AM
[2024-06-03 16:38] LABS: INR 1.5 (0.9-1.1); Prothrombin Time 15.3 Seconds (9.0-12.0)
[2024-06-03] MEDS ORDERED: ACETAMINOPHEN 325 MG TAB PO PRN (16:38)
[2024-06-03] MEDS ORDERED: ALUMINUM/MAGNESIUM SUSP 30 ML UDC PO PRN (16:38)
[2024-06-03] MEDS: NICOTINE 21 MG/24 HR TDSY TD ONE (16:44)
[2024-06-03] MEDS: ONDANSETRON INJ 2 MG/ML 2 ML VIAL ONE (16:44)
[2024-06-03] MEDS ORDERED: PANTOprazole 40 MG in DEXTROSE 5% MINI-B 100 ML IV SCH (16:45)
[2024-06-03] MEDS ORDERED: ONDANSETRON INJ 2 MG/ML 2 ML VIAL IV PRN (17:13)
[2024-06-03] MEDS ORDERED: POLYETHYLENE (MIRALAX) 17 GM PACK PO PRN (17:13)
[2024-06-03 17:43] LABS: Basophils # (auto) 0.05 K/uL (0.00-0.20); Basophils % (auto) 0.6 %; Eosinophils # (auto) 0.02 K/uL (0.00-0.50); Eosinophils % (auto) 0.3 %; Hematocrit (blood only) 40.8 % (37.0-47.0); Hemoglobin 14.6 g/dl (12.0-16.0); Immature Granulocytes # (auto) 0.02 K/uL (0.01-0.20); Immature Granulocytes % (auto) 0.3 %; Mean Corpuscular Hemoglobin 37.4 pg (25.0-34.0); Mean Corpuscular Hgb Conc 35.8 g/dL (32.0-36.0); Mean Corpuscular Volume 104.6 fL (80.0-100.0); Mean Platelet Volume 11.6 fL (9.4-12.4); Monocytes # (auto) 0.59 K/uL (0.11-0.59); Monocytes % (auto) 7.5 %; Neutrophils # (auto) 5.73 K/uL (1.40-6.50); Neutrophils % (auto) 72.3 %; Platelet Count 147 K/uL (130-400); RDW Coefficient of Variation 14.5 % (11.5-14.5); RDW Standard Deviation 55.7 fL (36.4-46.3); White Blood Count 7.91 K/ul (4.8-10.8)
[2024-06-03 18:37] LABS: Alanine Aminotransferase 43 U/L (7-52); Albumin Globulin Ratio 1.2 (0.9-2); Albumin Level 4.2 gm/dl (3.4-5.0); Alkaline Phosphatase 126 U/L (34-104); Anion Gap 10 (3-11); Aspartate Aminotransferase 65 U/L (13-39); BUN Creatinine Ratio 45.3 (10-20); Bilirubin,Total 1.3 mg/dl (0.2-1.0); Blood Urea Nitrogen 24 mg/dl (6-23); Calcium 9.6 mg/dl (8.6-10.3); Carbon Dioxide 27 mmol/L (21-32); Chloride 100 mmol/L (98-107); Est GFR (African American) 120.5 ml/min; Est GFR (Non-African American) 103.9 ml/min; Globulin 3.5 gm/dl (2.5-4.0); Glucose 106 mg/dl (70-99(Fasting)); Potassium 4.2 mmol/L (3.5-5.1); Sodium 137 mmol/L (136-145); Total Protein 7.7 gm/dl (6.0-8.3); Troponin I High Sensitivity 4.3 pg/ml (0-14)
[2024-06-03 19:05] LABS: Hematocrit (blood only) 34.1 % (37.0-47.0); Hemoglobin 12.1 g/dl (12.0-16.0)
--- OUTSIDE RECORDS SUMMARY | 2024-06-03 19:45 | External Medical Summary | Summary of Care ---
Author Name Unknown Organization [facility] Address [address] [place] [address] Phone [phone] Care Team Providers Care Heel Coverer Machine Operator Name Role Phone Unavailable Primary Care Provider Unavailabl e Reason for Referral * Precert (Within 10 days (routine)) - Pending Review Specialty Diagnoses / Procedures Referred By Larry garrison Referred To Contact Radiology Diagnoses Abnormal US (ultrasound) of abdomen Procedures MRI LIVER W WO CONTRAST Shae Gutierrez CRNP [address] [place] [address] Referral ID Status Reason Start Date Expiration Date V isits Requested Visits Authorized [id number] Pending Review 05/17/2024 999 999 Reason for Visit * Reason Onset Date Comments Test Results 05/17/2024 Encounter Details Date Type Department Care Team (Late st Contact Info) Description 05/17/2024 Telephone Gastroenterology, [facility] [address] [facility] [place] [address] Shae Gutierrez CRNP [address] [facility] [place] [id number] Test Results Allergies Active Allergy Reactions Criticality Noted Date Comments Gluten Abdominal pain 07/03/2014 Gas, bloating Prednisone Diarrhea,Nausea/vomiting 07/08/2019 documented as of this encounter (statuses as of 05/17/2024) Medications Medication Sig Dispensed Refills Start Date End Date Status pyridOXINE (VITAMIN B-6) 100 MG Tablet 1 Tablet. 06/28/2019 Active Vitamin D3 125 MCG (5000 UT) Oral Capsule Take 1 Capsule by mouth in the morning. Active Zinc 25 MG Oral Tablet Take by mouth daily. Active Black [place] Pollen 1:20 Subcutaneous Solution Inject under the skin. Active Vitamin B-12 500 MCG Sublingual Tablet Sublingual (Vitamin B-12) Place 1 Tablet under the tongue in the morning. Active Calcium Lactate 100 MG Oral Tablet Take by mouth. Active Potassium Bicarbonate 99 MG Oral Capsule Take by mouth. Twice weekly Active Oil of Oregano 1500 MG Oral Capsule Take by mouth. Active documented as of this encounter (statuses as of 05/17/2024) Active Problems Problem Noted Date Diagnosed Date HTN, goal below 130/80 04/26/2024 Fatty liver 03/01/2024 Alcoholic 01/22/2024 Gastroesophageal reflux dise ase with esophagitis without hemorrhage 01/21/2024 Esophageal varices determined by endoscopy 09/09 Gluten intolerance 06/02/2019 Tobacco use disorder 12/25/2015 documented as of this encounter (statuses as of 05/17/2024) Resolved Problems Problem Noted Date Diagnosed Date Resolved Date History of acute hepatitis 09/09/2019 0 01/21/2024 History of ETOH abuse 07/10/20192023 Deviated nasal septum 05/25/20192023 Recurrent sinus infections 05/25/2019 0 01/21/2024 Mixed rhinitis 12/25/2015 01/21/2024 documented as of this encounter (statuses as of 05/17/2024) Immunizations Name Administration Dates Next Due Diptheria/Tetanus (Adult) 11/19/2006 HEP A - Hepatitis A (Adult > 18 yrs) 09/09/2019 Hepatitis B, 20+ yrs 11/28/2019,09/09/2019 documented as of this encounter Social History Tobacco Use Types Packs/Day Years Used Date Smoking Tobacco: Every Day Cigarettes 0.7 35 Smokeless Tobacco: Never Comments:15 to 18 cigarettes a day/ no passive smoke Rolls her own cigarettes Alcohol Use Standard Drinks/Week Comments Not Currently 0 (1 standard drink = 0.6 oz pure alcohol) none except sips since 07/2019, increased till 12/2023 none since PHQ-2 Answer Date Recorded PHQ-2 Score 0 05/12/2019 Hunger Vital Sign Answer Date Recorded Worried About Running Out of Food in the Last Ye ar Never true 07/08/2019 Ran Out of Food in the Last Year Never true 07/08/2019 Utilities Answer Date Recorded Do you have trouble paying y our heating, water, or electric bill? (Adult - for ages 18 years and over) Not on file 05/03/2024 Is your family able to pay t he heat, water, or electric bill? (Household - for ages 0-17 years) Not on file 05/03/2024 Does your family have access to good internet? (Household - for ages 0-17 years) Not on file 05/03/2024 Social Connections Answer Date Recorded How often do you feel lonely or isolated from those around you? (Adult - for ages 18 years and over) Not on file 05/03/2024 Sex and Gender Information Value Date Recorded Sex Assigned at Not on file Gender Identity Not on file Sexual Orientation Not on file Job Start Date Occupation Industry Not on file Not on file Not on file documented as of this encounter Miscellaneous Notes * Telephone Encounter - Shae Gutierrez CRNP - 05/17/2024 12:27 PM EDT Reviewed US abd findings w pt over phone: 1. Hepatic contour bulging in the gallbladder fossa measuring up to 6.4 cm, which may represent prominent liver parenchyma versus underlying lesion. Consider further evaluation with MRI abdomen with and without contrast. 2. Cirrhosis. 3. Gallstones. Pt agreeable to MRI liver w wo contrast for further eval. Schedulers - pls assist w MRI appt MELISSA Fisher documented in this encounter Plan of Treatment Upcoming Encounters Date Type Department Care Team (Latest Contact Info) Description 06/01/2024 2:30 PM EDT Hospital Encounter ENDO [facility], Endoscopy Room [facility] [address] [phone] John Good MD [address] [id number] 06/01/2024 2:30 PM EDT - 06/01/2024 3:00 PM EDT Surgery ENDO [facility], Endoscopy Room [facility] [address] [place] [phone] John Good MD [address] [place] [address] ESOPHAGOGASTRODUODENOSCOPY (EGD), FLEXIBLE, TRANSORAL, DIAGNOSTIC 08/26/2024 8:40 AM EDT Office Visit Hepatology, [facility] [address] [place] [address] Jalyn Gallego MD [address] [place] [address] Scheduled Orders Name Type Priority Associated Diagnoses Orde r Schedule MRI LIVER W WO CONTRAST Medical Imaging Routine Abnormal US (ultrasound) of abdomen Ordered: 05/17/2024 Scheduled Procedures Name Priority Associated Diagnoses Date/Ti me ESOPHAGOGASTRODUODENOSCOPY ( EGD), FLEXIBLE, TRANSORAL, DIAGNOSTIC Esophageal varices (HCC) 06/01/2024 2:30 PM EDT COLONOSCOPY FLEXIBLE PROXIMA L DIAGNOSTIC Recall Alcoholic hepatitis, unspecified whether ascites present ESOPHAGOGASTRODUODENOSCOPY ( EGD), FLEXIBLE, TRANSORAL, DIAGNOSTIC Recall Alcoholic hepatitis, unspecified whether ascites present Health Maintenance Due Date Last Done Comments Pneumococcal Vaccine: Pediatrics (0 to 5 Years) and At-Risk Patients (6 to 64 Years) (1 of 2 - PCV) 1970 HIV Screening 1979 Albumin/Creatinine Ratio 1982 HPV/Co-Test 1994 Mammogram 2004 DTaP,Tdap,and Td Vaccines (1 - Tdap) 11/20/2006 11/19/2006, 11/19/2006 Cologuard 2009 Colonoscopy 2009 Colorectal Cancer Screening 2009 Fecal Occult Blood Test 2009 Sigmoidoscopy 2009 Lung Cancer Screening 2014 Zoster Vaccines (1 of 2) 2014 Cervical Cancer Screening 2016 Pap Smear 2016 2013 Hepatitis B (3 of 3 - 19+ 3-dose series) 03/10/2020 11/28/2019, 09/09/2019 Depression Screening 05/12/2020 05/12/2019 Lipid Panel 12/16/2020 12/16/2015 COVID-19 Vaccine (2022-24 season) 2023 Influenza Vaccine (FLU shot) (#1) 2024 GFR 02/15/2025 02/16/2024, 03/0 06/2024, 05/28/2020, Additional history exists Hepatitis C Screening Completed 06/24/2019 GARDASIL-HPV IMMUNIZATION SERIES Aged Out No longer eligible based on patient's age to complete this topic MENINGOCOCCAL (MENACTRA/MENVEO) Aged Out No longer eligible based on patient's age to complete this topic documented as of this encounter Medical Devices Implanted Type Area Cone Examiner Device Identifier Shelf Expiration Date Model / Serial / Lot Lens Intraoc 24.0 - [id number] - [id number] Implanted:Qty: 1 on 02/26/2021 by Manuel Azevedo MD at OR [facility] Right: Eye [employer] 04/15/2024 [id number] / [id number] / [id number] Lens Intraoc 23.5 - [id number] - [id number] Implanted:Qty: 1 on 03/12/2021 by Manuel Azevedo MD at OR [facility] Left: Eye [employer]OM[employer] 09/15/2025 [id number] / [id number] / [id number] documented as of this encounter Visit Diagnoses Diagnosis Abnormal US (ultrasound) of abdomen- Primary Nonspecific (abnormal) findings on radiological and other examination of abdominal area, including retroperitoneum Esophageal varices (HCC) Esophageal varices without mention of bleeding documented in this encounter
--- OUTSIDE RECORDS SUMMARY | 2024-06-03 19:45 | External Medical Summary | Summary of Care ---
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 Allergies Active Allergy Reactions Criticality Noted Date [...] Tablet Take by mouth daily. Active Black [place] Pollen 1:20 Subcutaneous Solution Inject under the [...] Encounter - Shae Gutierrez CRNP - 05/17/2024 9:34 AM EDT Noted MELISSA Fisher * Telephone Encounter - Maryanne Harris OSA - 05/16/2024 6:02 PM EDT Hello- The radiologist discovered an unexpected or indeterminate finding on Sheyla Melton ([id number]) and asks that you review the following report. IMPRESSION IMPRESSION 1. Hepatic contour bulging in the gallbladder fossa measuring up to 6.4 cm, which may represent prominent liver parenchyma versus underlying lesion. Consider further evaluation with MRI abdomen with and without contrast. 2. Cirrhosis. 3. Gallstones. Study Type:US ABDOMEN LIMITED Date of Study: 05/16/2024 Please respond to this encounter to acknowledge receipt of this message and take responsibility to ensure this report is reviewed. Thank you, LUCIE Card Client Service Rep [facility] documented in this encounter Plan of Treatment Upcoming Encounters Date Type Department Care Team (Latest Contact Info) Description 06/01/2024 2:30 PM EDT Hospital Encounter END[facility], Endoscopy Room [facility] [address] [phone] John Good MD [address] [id number] 06/01/2024 2:30 PM EDT - 06/01/2024 3:00 PM EDT Surgery [facility], Endoscopy Room [facility] [address] [place] [phone] John Good MD [address] [place] [address] ESOPHAGOGASTRODUODENOSCOPY (EGD), FLEXIBLE, TRANSORAL, DIAGNOSTIC 08/26/2024 8:40 AM EDT Office Visit Hepatology, [facility] [address] [place] [address] Jalyn Gallego MD [address] [place] [address] Scheduled Procedures Name Priority Associated Diagnoses Date/Ti [...] 05/12/2019 Lipid Panel 12/16/2020 12/16/2015 COVID-19 Vaccine ( season) 2023 Influenza Vaccine (FLU shot) (#1) 2024 GFR 02/15/2025 02/16/2024, 03/0 06/2024, 05/28/2020, Additional history exists Hepatitis C Screening Completed 06/24/2019 GARDASIL-HPV IMMUNIZATION SERIES Aged Out No longer eligible based on patient's age to complete this topic MENINGOCOCCAL (MENACTRA/MENVEO) Aged Out No longer eligible based on patient's age to complete this topic documented as of this encounter Medical Devices Implanted Type Area Supervisor Cigar Processing Device Identifier Shelf Expiration Date Model / Serial / Lot Lens Intraoc 24.0 - [id number] - [id number] Implanted:Qty: 1 on 02/26/2021 by Manuel Azevedo MD at OR [facility] Right: Eye [employer] 04/15/2024 [id number] / [id number] / [id number] Lens Intraoc 23.5 - [id number] - [id number] Implanted:Qty: 1 on 03/12/2021 by Manuel Azevedo MD at OR [facility] Left: Eye [employer]OM[employer] 09/15/2025 [id number] / [id number] / [id number] documented as of this encounter
--- OUTSIDE RECORDS SUMMARY | 2024-06-03 19:45 | External Medical Summary | Summary of Care ---
Author Name Unknown Organization [facility] Address [address] [place] [address] Phone [phone] Care Team Providers Care Nuclear Station Operator Name Role Phone Unavailable Primary Care Provider Unavailabl e Reason for Visit * Reason Onset Date Comments Test Results 05/16/2024 Unexpected or In determinate Result Encounter Details Date Type Department Care Team ([facility] st Contact Info) Description 05/16/2024 Telephone Radiology [facility] [address] [place] [address] Edda Wheeler CRNP [address] [address] Test Results (Unexpected or Indeterminate ... Allergies Active Allergy Reactions Criticality Noted Date Comments Gluten Abdominal pain 07/03/2014 Gas, bloating Prednisone Diarrhea,Nausea/vomiting 07/08/2019 documented as of this encounter (statuses as of 05/16/2024) Medications Medication Sig Dispensed Refills Start Date End Date Status pyridOXINE (VITAMIN B-6) 100 MG Tablet 1 Tablet. 06/28/2019 Active Vitamin D3 125 MCG (5000 UT) Oral Capsule Take 1 Capsule by mouth in the morning. Active Zinc 25 MG Oral Tablet Take by mouth daily. Active Black [place] Pollen 1:20 Subcutaneous Solution Inject under the [...] as of this encounter (statuses as of 05/16/2024) Active Problems Problem Noted Date Diagnosed Date HTN, goal below 130/80 04/26/2024 Fatty liver 03/01/2024 Alcoholic 01/22/2024 Gastroesophageal reflux dise ase with esophagitis without hemorrhage 01/21/2024 Esophageal varices determined by endoscopy 09/09 Gluten intolerance 06/02/2019 Tobacco use disorder 12/25/2015 documented as of this encounter (statuses as of 05/16/2024) Resolved Problems Problem Noted Date Diagnosed Date Resolved Date History of acute hepatitis 09/09/2019 0 01/21/2024 History of ETOH abuse 07/10/20192023 Deviated nasal septum 05/25/20192023 Recurrent sinus infections 05/25/2019 0 01/21/2024 Mixed rhinitis 12/25/2015 01/21/2024 documented as of this encounter (statuses as of 05/16/2024) Immunizations Name Administration Dates Next Due Diptheria/Tetanus [...] encounter Miscellaneous Notes * Telephone Encounter - Maryanne Harris OSA - 05/16/2024 6:02 PM EDT Hello- The radiologist discovered an unexpected or indeterminate finding on Sheyla Melton ([id number]) and asks that you review the following [...] Thank you, LUCIE Card Client Service Rep [facility] documented in this encounter Plan of Treatment Upcoming Encounters Date Type Department Care Team (Latest Contact Info) Description 06/01/2024 2:30 PM EDT Hospital Encounter ENDO [facility], Endoscopy Room [facility] [address] [place] [phone] John Good MD [address] [place] [address] 06/01/2024 2:30 PM EDT - 06/01/2024 3:00 PM EDT Surgery ENDO [facility], Endoscopy Room [facility] [address] [place] [phone] John Good MD [address] [place] [address] ESOPHAGOGASTRODUODENOSCOPY (EGD), FLEXIBLE, TRANSORAL, DIAGNOSTIC 08/26/2024 8:40 AM EDT Office Visit Hepatology, [facility] [address] [place] [address] Jalyn Gallego MD [address] [place] [address] Scheduled Procedures Name Priority Associated Diagnoses [...] 05/12/2019 Lipid Panel 12/16/2020 12/16/2015 COVID-19 Vaccine (1 - 2022-24 season) 2023 Influenza Vaccine (FLU shot) (#1) 2024 GFR 02/15/2025 02/16/2024, 03/0 06/2024, 05/28/2020, Additional history exists Hepatitis C Screening Completed 06/24/2019 GARDASIL-HPV IMMUNIZATION SERIES Aged Out No longer eligible based on patient's age to complete this topic MENINGOCOCCAL (MENACTRA/MENVEO) Aged Out No longer eligible based on patient's age to complete this topic documented as of this encounter Medical Devices Implanted Type Area Hop Worker Device Identifier Shelf Expiration Date Model / Serial / Lot Lens Intraoc 24.0 - [id number] - [id number] Implanted:Qty: 1 on 02/26/2021 by Manuel Azevedo MD at OR [facility] Right: Eye [employer]OM[employer] 04/15/2024 [id number] / [id number] / [id number] Lens Intraoc 23.5 - [id number] - [id number] Implanted:Qty: 1 on 03/12/2021 by Manuel Azevedo MD at OR [facility] Left: Eye BAUSCH & LOMB 09/15/2025 [id number] / [id number] / [id number] documented as of this encounter
--- OUTSIDE RECORDS SUMMARY | 2024-06-03 19:45 | External Medical Summary | Summary of Care ---
Author Name Unknown Organization [facility] Address [address] [place] [address] Phone [phone] Care Team Providers Care Doughnut Machine Operator Name Role Phone Unavailable Primary Care Provider Unavailabl e Reason for Referral * Precert (Within 10 days (routine)) - Pending Review Specialty Diagnoses / Procedures Referred By Larry garrison Referred To Contact Radiology Diagnoses Abnormal US (ultrasound) of abdomen Procedures MRI LIVER W WO CONTRAST Shae Gutierrez CRNP [address] [place] [address] Referral ID Status Reason Start Date Expiration Date V isits Requested Visits Authorized [id number] Pending Review 05/17/2024 999 999 Reason for Visit * Reason Onset Date Comments Test Results 05/17/2024 Encounter Details Date Type Department Care Team (Late st Contact Info) Description 05/17/2024 Telephone Gastroenterology, [facility] 132 [facility] [place] [address] Shae Gutierrez CRNP 132 [facility] [place] [address] Test Results Allergies Active Allergy Reactions Criticality Noted Date Comments Gluten Abdominal pain 07/03/2014 Gas, bloating Prednisone Diarrhea,Nausea/vomiting 07/08/2019 documented as of this encounter (statuses as of 05/20/2024) Medications Medication Sig Dispensed Refills Start Date End Date Status pyridOXINE (VITAMIN B-6) 100 MG Tablet 1 Tablet. 06/28/2019 Active Vitamin D3 125 MCG (5000 UT) Oral Capsule Take 1 Capsule by mouth in the morning. Active Zinc 25 MG Oral Tablet Take by mouth daily. Active Black [place] Pollen 1:20 Subcutaneous Solution Inject under the [...] as of this encounter (statuses as of 05/20/2024) Active Problems Problem Noted Date Diagnosed Date HTN, goal below 130/80 04/26/2024 Fatty liver 03/01/2024 Alcoholic 01/22/2024 Gastroesophageal reflux dise ase with esophagitis without hemorrhage 01/21/2024 Esophageal varices determined by endoscopy 09/09 Gluten intolerance 06/02/2019 Tobacco use disorder 12/25/2015 documented as of this encounter (statuses as of 05/20/2024) Resolved Problems Problem Noted Date Diagnosed Date Resolved Date History of acute hepatitis 09/09/2019 0 01/21/2024 History of ETOH abuse 07/10/20192023 Deviated nasal septum 05/25/20192023 Recurrent sinus infections 05/25/2019 0 01/21/2024 Mixed rhinitis 12/25/2015 01/21/2024 documented as of this encounter (statuses as of 05/20/2024) Immunizations Name Administration Dates Next Due Diptheria/Tetanus [...] encounter Miscellaneous Notes * Telephone Encounter - Luly Friend OSA - 05/20/2024 12:50 PM EDT Called pt and transferred to central for MRI appt. * Telephone Encounter - Shae Gutierrez CRNP [...] Encounter ENDO [facility], Endoscopy Room [facility] [address] [place] [phone] John Good MD [address] [place] [address] 06/01/2024 2:30 PM EDT - 06/01/2024 3:00 PM EDT Surgery ENDO [facility], Endoscopy Room [facility] [address] [place] [phone] John Good MD [address] [place] [address] ESOPHAGOGASTRODUODENOSCOPY (EGD), FLEXIBLE, TRANSORAL, DIAGNOSTIC 08/26/2024 8:40 AM EDT Office Visit Hepatology, [facility] [address] [place] [address] Jalyn Gallego MD [facility] [address] [place] [address] Scheduled Orders Name Type Priority Associated Diagnoses [...] 2016 Pap Smear 2016 2013 Hepatitis B Vaccine (3 of 3 - 19+ 3-dose series) 03/10/2020 11/28/2019, 09/09/2019 Depression Screening 05/12/2020 05/12/2019 Lipid Panel 12/16/2020 12/16/2015 COVID-19 Vaccine (2022-24 season) 2023 Influenza Vaccine (FLU shot) (#1) 2024 GFR 02/15/2025 02/16/2024, 03/0 06/2024, 05/28/2020, Additional history exists Hepatitis C Screening Completed 06/24/2019 HPV (Gardasil) Vaccine Aged Out No lo nger eligible based on patient's age to complete this topic MENINGOCOCCAL (MENACTRA/MENVEO) Aged Out No longer eligible based on patient's age to complete this topic documented as of this encounter Medical Devices Implanted Type Area Manager Private Device Identifier Shelf Expiration Date Model / Serial / Lot Lens Intraoc 24.0 - [id number] - [id number] Implanted:Qty: 1 on 02/26/2021 by Manuel Azevedo MD at OR [facility] Right: Eye [employer]OMB 04/15/2024 [id number] / [id number] / [id number] Lens Intraoc 23.5 - [id number] - [id number] Implanted:Qty: 1 on 03/12/2021 by Manuel Azevedo MD at OR [facility] Left: Eye BAUSCH [employer] LOMB 09/15/2025 [id number] / [id number] / [id number] documented as of this encounter Visit Diagnoses Diagnosis Abnormal US (ultrasound) of abdomen- Primary Nonspecific (abnormal) findings on radiological and other examination of abdominal area, including retroperitoneum Esophageal varices (HCC) Esophageal varices without mention of bleeding documented in this encounter
--- OUTSIDE RECORDS SUMMARY | 2024-06-03 19:45 | External Medical Summary | Summary of Care ---
Author Name Unknown Organization [facility] Address [address] [place] [address] Phone [phone] Care Team Providers Care Theoretical Physics Teacher Name Role Phone Unavailable Primary Care Provider Unavailabl e Reason for Visit * Reason Comments Emergency Department Follow-Up Pt here f or ER follow up Encounter Details Date Type Department Care Team (Late st Contact Info) Description 04/27/2024 12:20 PM EDT Office Visit [facility] [address] [facility] [place] [address] Misael Vail MD 132 [facility] [place] [address] HTN, goal below 130/80* Allergies Active Allergy Reactions Criticality Noted Date Comments Gluten Abdominal pain 07/03/2014 Gas, bloating Prednisone Diarrhea,Nausea/vomiting 07/08/2019 documented as of this encounter (statuses as of 04/27/2024) Medications Medication Sig Dispensed Refills Start Date End Date Status pyridOXINE (VITAMIN B-6) 100 MG Tablet 1 Tablet. 06/28/2019 Active Vitamin D3 125 MCG (5000 UT) Oral Capsule Take 1 Capsule by mouth in the morning. Active Zinc 25 MG Oral Tablet Take by mouth daily. Active Black [place] Pollen 1:20 Subcutaneous Solution Inject under the skin. Active Vitamin B-12 500 MCG Sublingual Tablet Sublingual (Vitamin B-12) Place 1 Tablet under the tongue in the morning. Active Calcium Lactate 100 MG Oral Tablet Take by mouth. Active Potassium Bicarbonate 99 MG Oral Capsule Take by mouth. Twice weekly Active Oil of Oregano 1500 MG Oral Capsule Take by mouth. Active Pantoprazole Sodium 40 MG Oral Tablet Delayed Release (Protonix) 40 mg orally twice a day 180 Tablet 01/15/2024 Discontinued documented as of this encounter (statuses as of 04/27/2024) Active Problems Problem Noted Date Diagnosed Date HTN, goal below 130/80 04/26/2024 Fatty liver 03/01/2024 Alcoholic 01/22/2024 Gastroesophageal reflux dise ase with esophagitis without hemorrhage 01/21/2024 Esophageal varices determined by endoscopy 09/09 Gluten intolerance 06/02/2019 Tobacco use disorder 12/25/2015 documented as of this encounter (statuses as of 04/27/2024) Resolved Problems Problem Noted Date Diagnosed Date Resolved Date History of acute hepatitis 09/09/2019 0 01/21/2024 History of ETOH abuse 07/10/20192023 Deviated nasal septum 05/25/20192023 Recurrent sinus infections 05/25/2019 0 01/21/2024 Mixed rhinitis 12/25/2015 01/21/2024 documented as of this encounter (statuses as of 04/27/2024) Immunizations Name Administration Dates Next Due Diptheria/Tetanus [...] in the Last Year Never true 07/08/2019 Sex and Gender Information Value Date Recorded Sex Assigned at Not on file Gender Identity Not on file Sexual Orientation Not on file Job Start Date Occupation Industry Not on file Not on file Not on file documented as of this encounter Last Filed Vital Signs Vital Sign Reading Time Taken Comments Blood Pressure 124/82 04/27/2024 12:04 PM EDT Pulse 76 04/27/2024 12:04 PM EDT Temperature 36.1 C (96.9 F) 04/27/2024 12:04 PM E DT Respiratory Rate 18 04/27/2024 12:04 PM EDT Oxygen Saturation - - Inhaled Oxygen Concentration - - Weight 64 kg (141 lb) 04/27/2024 12:04 PM EDT Height 171.5 cm (5' 7.5") 04/27/2024 12:04 PM ED T Body Mass Index 21.76 04/27/2024 12:04 PM EDT documented in this encounter Progress Notes * Misael Vail MD - 04/27/2024 12:27 PM EDT SUBJECTIVE: Sheyla Melton is a 58 year old female. Chief Complaint Patient presents with Emergency Department Follow-Up Pt here for ER follow up HPI: ER follow up for hypertensive urgency. Her BP is usually under excellent control with oil of oregano. She missed a dose and didn't feel well and went to the ED. BP came down with reassurance. She feels great today. Patient Active Problem List Diagnosis Tobacco use disorder Gluten intolerance Esophageal varices determined by endoscopy (HCC) Gastroesophageal reflux disease with esophagitis without hemorrhage Alcoholic (HCC) Fatty liver HTN, goal below 130/80 Current Outpatient Medications Medication Sig Dispense Refill pyridOXINE (VITAMIN B-6) 100 MG Tablet 1 Tablet. Vitamin D3 125 MCG (5000 UT) Oral Capsule Take 1 Capsule by mouth in the morning. Zinc 25 MG Oral Tablet Take by mouth daily. Black [place] Pollen 1:20 Subcutaneous Solution Inject under the skin. Vitamin B-12 500 MCG Sublingual Tablet Sublingual (Vitamin B-12) Place 1 Tablet under the tongue inthe morning. Potassium Bicarbonate 99 MG Oral Capsule Take by mouth. Twice weekly Oil of Oregano 1500 MG Oral Capsule Take by mouth. Calcium Lactate 100 MG Oral Tablet Take by mouth. No current facility-administered medications for this visit. Allergy: Review of patient's allergies indicates: Allergen Reactions Gluten Abdominal pain Gas, bloating Prednisone Diarrhea and Nausea/vomiting OBJECTIVE: BP 124/82 | Pulse 76 | Temp 36.1 C (96.9 F) (Tympanic) | Resp 18 | Ht 1.715 m (5' 7.5") | Wt 64kg (141 lb) | BMI 21.76 kg/m | BSA 1.75 m Gen: nad ASSESSMENT AND PLAN: (I10) HTN, goal below 130/80 (primary encounter diagnosis) Plan: continue to monitor; oil of oregano helping Follow up as needed. No other complaints were offered at this time. Misael Vail MD documented in this encounter Nursing Notes * Prachi Weeks LPN - 04/27/2024 12:03 PM EDT The patient has been properly identified by confirmation of name and date of . Chief Complaint Patient presents with Emergency Department Follow-Up Pt here for ER follow up documented in this encounter Plan of Treatment Upcoming Encounters Date Type Department Care Team (Latest Contact Info) Description 05/16/2024 7:15 AM EDT Imaging Radiology [facility] [address] [place] [address] 06/01/2024 2:30 PM EDT Hospital Encounter ENDO [facility], Endoscopy Room [facility] [address] [place] [phone] John Good MD [address] [place] [address] 06/01/2024 2:30 PM EDT - 06/01/2024 3:00 PM EDT Surgery ENDO [facility], Endoscopy Room [facility] [address] [place] [phone] John Good MD [address] [place] [address] ESOPHAGOGASTRODUODENOSCOPY (EGD), FLEXIBLE, TRANSORAL, DIAGNOSTIC 08/26/2024 8:40 AM EDT Office Visit Hepatology, [facility] 132 [facility] [place] [address] Jalyn Gallego MD [address] [place] [...] 2022-24 season) 2023 Influenza Vaccine (FLU shot) (Season Ended) 2024 GFR 02/15/2025 02/16/2024, 03/0 06/2024, 05/28/2020, Additional history exists Hepatitis C Screening Completed 06/24/2019 GARDASIL-HPV IMMUNIZATION SERIES Aged Out No longer eligible based on patient's age to complete this topic MENINGOCOCCAL (MENACTRA/MENVEO) Aged Out No longer eligible based on patient's age to complete this topic documented as of this encounter Medical Devices Implanted Type Area Slide Maker Device Identifier Shelf Expiration Date Model / Serial / Lot Lens Intraoc 24.0 - [id number] - [id number] Implanted:Qty: 1 on 02/26/2021 by Manuel Azevedo MD at OR [facility] Right: Eye [employer]OMB 04/15/2024 [id number] / [id number] / [id number] Lens Intraoc 23.5 - [id number] - [id number] Implanted:Qty: 1 on 03/12/2021 by Manuel Azevedo MD at OR [facility] Left: Eye BAUSCH & LOMB 09/15/2025 [id number] / [id number] / [id number] documented as of this encounter Visit Diagnoses Diagnosis HTN, goal below 130/80- Primary Unspecified essential hypertension Esophageal varices (HCC) Esophageal varices without mention of bleeding documented in this encounter
--- OUTSIDE RECORDS SUMMARY | 2024-06-03 19:45 | External Medical Summary | Summary of Care ---
Author Name Unknown Organization [facility] Address [address] [place] [address] Phone [phone] Care Team Providers Care Retail Client Solutions Analyst Name Role Phone Unavailable Primary Care Provider Unavailabl e Reason for Referral * Precert (Within 10 days (routine)) - Pending Review Specialty Diagnoses / Procedures Referred By Larry garrison Referred To Contact Radiology Diagnoses Abnormal US (ultrasound) of abdomen Procedures MRI LIVER W WO CONTRAST Shae Gutierrez CRNP [address] [place] [address] Referral ID Status Reason Start Date Expiration Date V isits Requested Visits Authorized [id number] Pending Review 05/17/2024 999 999 Reason for Visit * Reason Onset Date Comments Test Results 05/17/2024 Encounter Details Date Type Department Care Team (Late st Contact Info) Description 05/17/2024 Telephone Gastroenterology, [facility] 132 [facility] [place] [address] Shae Gutierrez CRNP 132 [facility] [place] [address] Test Results Allergies Active Allergy Reactions Criticality [...] Tablet Take by mouth daily. Active Black [place] Pollen 1:20 Subcutaneous Solution Inject under the [...] Encounter - Luly Friend OSA - 05/20/2024 1:15 PM EDT MRI 06/15 * Telephone Encounter - Luly Friend OSA [...] lesion. Consider further evaluation with MRI abdomen withand without contrast. 2. Cirrhosis. 3. Gallstones. Pt agreeable to MRI liver w wo contrast for further eval. Schedulers - pls assist w MRI appt MELISSA Fisher documented in this encounter Plan of Treatment Upcoming Encounters Date Type Department Care Team (Latest Contact Info) Description 06/01/2024 2:30 PM EDT Hospital Encounter ENDO [facility], Endoscopy Room [facility] [address] [place] [address] John Good MD [address] [place] [address] 06/01/2024 2:30 PM EDT - 06/01/2024 3:00 PM EDT Surgery ENDO [facility], Endoscopy Room [facility] [address] [place] [phone] John Good MD [address] [place] [address] ESOPHAGOGASTRODUODENOSCOPY (EGD), FLEXIBLE, TRANSORAL, DIAGNOSTIC 06/15/2024 2:30 PM EDT Imaging Radiology [facility] [address] [place] [address] 08/26/2024 8:40 AM EDT Office Visit Hepatology, [facility] [address] [facility] [place] [address] Jalyn Gallego MD [facility] [address] [place] [address] Scheduled Orders Name Type Priority Associated Diagnoses [...] Lipid Panel 12/16/2020 12/16/2015 COVID-19 Vaccine ( - 2022- season) 2023 Influenza Vaccine (FLU shot) (#1) 2024 GFR 02/15/2025 02/16/2024, 0306/2024, 05/28/2020, Additional history exists Hepatitis C Screening Completed 06/24/2019 HPV (Gardasil) Vaccine Aged Out No lo nger eligible based on patient's age to complete this topic MENINGOCOCCAL (MENACTRA/MENVEO) Aged Out No longer eligible based on patient's age to complete this topic documented as of this encounter Medical Devices Implanted Type Area Mass Communications Professor Device Identifier Shelf Expiration Date Model / Serial / Lot Lens Intraoc 24.0 - [id number] - [id number] Implanted:Qty: 1 on 02/26/2021 by Manuel Azevedo MD at OR [facility] Right: Eye [employer]OMB 04/15/2024 [id number] / [id number] / [id number] Lens Intraoc 23.5 - [id number] - [id number] Implanted:Qty: 1 on 03/12/2021 by Manuel Azevedo MD at OR [facility] Left: Eye BAUSCH [employer] LOMB 09/15/2025 [id number] / [id number] / [id number] documented as of this encounter Visit Diagnoses Diagnosis Abnormal US (ultrasound) of abdomen- Primary Nonspecific (abnormal) findings on radiological and other examination of abdominal area, including retroperitoneum Esophageal varices (HCC) Esophageal varices without mention of bleeding documented in this encounter
--- OUTSIDE RECORDS SUMMARY | 2024-06-03 19:45 | External Medical Summary | Summary of Care ---
Author Name Unknown Organization [facility] Address [address] [place] [address] Phone [phone] Care Team Providers Care Email Production Specialist Name Role Phone Misael Vail MD Primary Care Provider [phone] Reason for Visit * Auth/Cert Specialty Diagnoses / Procedures Referred By Larry garrison Referred To Contact Diagnoses Esophageal varices (HCC) Esophageal varices (HCC) [I85.00] Procedures EGD, FLEXIBLE, DIAGNOSTIC ESOPHAGOGASTRODUODENOSCOPY (EGD), FLEXIBLE, TRANSORAL, DIAGNOSTIC John Good MD [address] [place] [address] [facility] [address] [place] [id number] Referral ID Status Reason Start Date Expiration Date Visits Re quested Visits Authorized [id number] Encounter Details Date Type Department Care Team (Latest Contact Info) Description 06/01/2024 1:02 PM EDT - 06/01/2024 2:18 PM EDT Hospital Encounter [facility], Endoscopy Room [facility] [address] [place] [id number] John Good MD [address] [place] [place] [id number] Upper GI Endoscopy Discharge Disposition: Home - Self Care Allergies Active Allergy Reactions Criticality Noted Date Comments Gluten Abdominal pain 07/03/2014 Gas, bloating Prednisone Diarrhea,Nausea/vomiting 07/08/2019 documented as of this encounter (statuses as of 06/02/2024) Medications Medication Sig Dispensed Refills Start Date End Date Status pyridOXINE (VITAMIN B-6) 100 MG Tablet 1 Tablet. 06/28/2019 Active Vitamin D3 125 MCG (5000 UT) Oral Capsule Take 1 Capsule by mouth in the morning. Active Zinc 25 MG Oral Tablet Take by mouth daily. Active [place] Pollen 1:20 Subcutaneous Solution Inject under the skin. Active Vitamin B-12 500 MCG Sublingual Tablet Sublingual (Vitamin B-12)Indications:as needed Place 1 Tablet under the tongue in the morning. Active Calcium Lactate 100 MG Oral Tablet Take by mouth. Active Potassium Bicarbonate 99 MG Oral Capsule Take by mouth. Twice weekly Active Oil of Oregano 1500 MG Oral Capsule Take by mouth. Active documented as of this encounter (statuses as of 06/02/2024) Active Problems Problem Noted Date Diagnosed Date HTN, goal below 130/80 04/26/2024 Fatty liver 03/01/2024 Alcoholic 01/22/2024 Gastroesophageal reflux dise ase with esophagitis without hemorrhage 01/21/2024 Esophageal varices determined by endoscopy 09/09 Gluten intolerance 06/02/2019 Tobacco use disorder 12/25/2015 documented as of this encounter (statuses as of 06/02/2024) Resolved Problems Problem Noted Date Diagnosed Date Resolved Date History of acute hepatitis 09/09/2019 0 01/21/2024 History of ETOH abuse 07/10/20192023 Deviated nasal septum 05/25/20192023 Recurrent sinus infections 05/25/2019 0 01/21/2024 Mixed rhinitis 12/25/2015 01/21/2024 documented as of this encounter (statuses as of 06/02/2024) Immunizations Name Administration Dates Next Due Diptheria/Tetanus [...] Sign Reading Time Taken Comments Blood Pressure 90/66 06/01/2024 2:13 PM EDT Pulse 86 06/01/2024 2:13 PM EDT Temperature 36.1 C (97 F) 06/01/2024 2:13 PM EDT Respiratory Rate 15 06/01/2024 2:13 PM EDT Oxygen Saturation 97% 06/01/2024 2:13 PM EDT Inhaled Oxygen Concentration - - Weight 63.5 kg (140 lb) 05/24/2024 12:43 PM EDT Height 172.7 cm (5' 8") 05/24/2024 12:43 PM EDT Body Mass Index 21.29 05/24/2024 12:43 PM EDT documented in this encounter H&P Notes * John Good MD - 06/01/2024 1:12 PM EDT Endoscopy Pre-Procedure Assessment Name: Sheyla Melton Date: 06/01/2024 Time: 1:12 PM Procedure(s): Upper GI Endoscopy; with Indication(s) of evaluation and workup of portal hypertension (including varices) Endoscopy Pre-Procedure Assessment: Prior to the procedure, the patient was identified. The patient's history, medications and allergies were reviewed as per the Anesthesia Assessment. The patient is competent. The risks and benefits of the proposed procedure and the planned sedation were discussed with the patient. All questions were answered and informed consent for the procedure was obtained. Ht 1.727 m (5' 8") | Wt 63.5 kg (140 lb) | BMI 21.29 kg/m | BSA 1.75 m Review of patient's allergies indicates: Allergen Reactions Gluten Abdominal pain Gas, bloating Prednisone Diarrhea and Nausea/vomiting Prior to Admission medications Medication Sig Last Dose Discont. Oil of Oregano 1500 MG Oral Capsule Take by mouth. 05/24/2024 Potassium Bicarbonate 99 MG Oral Capsule Take by mouth. Twice weekly 05/23/2024 Vitamin B-12 500 MCG Sublingual Tablet Sublingual (Vitamin B-12) Place 1 Tablet under the tongue inthe morning. Past Week Vitamin D3 125 MCG (5000 UT) Oral Capsule Take 1 Capsule by mouth in the morning. 05/23/2024 Zinc 25 MG Oral Tablet Take by mouth daily. 05/24/2024 pyridOXINE (VITAMIN B-6) 100 MG Tablet 1 Tablet. 05/23/2024 Calcium Lactate 100 MG Oral Tablet Take by mouth. Patient not taking: Reported on 05/24/2024 Not Taking [place] Pollen 1:20 Subcutaneous Solution Inject under the skin. Physical Exam: Mental Status Examination: alert and oriented. Airway Examination: normal oropharyngeal airway and neck mobility. Respiratory Examination: clear to auscultation. CV Examination: Regular rate and rythm, no murmurs. ASA Grade: II - A patient with mild systemic disease. After reviewing the risks and benefits, the patient was deemed in satisfactory condition to undergothe procedure. The anesthesia plan was to use sedation. Patient was explained in detail regarding risks, benefits, limitations and alternatives of the above endoscopic procedure. Risks of intravenous sedation used for procedure were also explained. Risks include, but not limited to perforation, bleeding, infection, respiratory distress, cardiac arrest and . Risk of acute pancreatitis and necrosis if ERCP is done. Patient is also aware about the possibility of missed lesion. Patient's questions were answered. The patient verbalized understandingthe information and agreed to undergo the procedure. Discussed with the patient that he/she is at an explicit higher risk for complications in comparison to other patients John Good MD 06/01/2024 documented in this encounter Procedure Notes * Jalyn Gallego MD - 06/01/2024 1:13 PM EDTAssociated Order(s): UPPER GI ENDOSCOPY [facility] Patient Name: Sheyla Melton Procedure Date: 06/01/2024 1:13 PM Date of : 1965 Admit Type: Outpatient Note Status: Finalized Date of : 1965 Admit Type: Outpatient Age: 58 Room: [facility] Gender: Female Note Status: Finalized Procedure: Upper GI endoscopy Indications: Follow-up of esophageal varices Providers: John Good MD (Doctor), Rob Sinha RN Referring MD: Misael Vail MD (Referring MD), Jalyn Gallego MD (Referring MD) Medicines: Propofol per Anesthesia Complications: No immediate complications. Procedure: Pre-Anesthesia Assessment: - Prior to the procedure, a History and Physical was performed, and patient medications, allergies and sensitivities were reviewed. The patient's tolerance of previous anesthesia was reviewed. - The risks and benefits of the procedure and the sedation options and risks were discussed with the patient. All questions were answered and informed consent was obtained. - Patient identification and proposed procedure were verified prior to the procedure by the physician and the nurse. The procedure was verified in the procedure room. - Pre-procedure physical examination revealed no contraindications to sedation. After obtaining informed consent, the endoscope was passed under direct vision. All instruments were visually inspected immediately before and after removal from the patient to ensure they are fully intact. Throughout the procedure, the patient's blood pressure, pulse, and oxygen saturations were monitored continuously.The upper GI endoscopy was accomplished without difficulty. The patient tolerated the procedure well. The GIF-H180 Endoscope ([id number]) was introduced through the mouth, and advanced to the second part of duodenum. 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 A post variceal banding scar was found in the lower third of the esophagus. The scar was unremarkable in appearance. There is no endoscopic evidence of varices in the entire esophagus. Mild portal hypertensive gastropathy was found in the stomach. The duodenal bulb and second portion of the duodenum were normal. Impression: - Scar in the lower third of the esophagus. No residual varices seen. - Portal hypertensive gastropathy. - Normal duodenal bulb and second portion of the duodenum. - No specimens collected. Recommendation: - Discharge patient to home. - Repeat upper endoscopy in 1 year for surveillance. - Return to referring physician. John Good MD 06/01/2024 2:13:56 PM This report has been signed electronically. documented in this encounter Nursing Notes * Tammy Duran RN - 06/01/2024 2:46 PM EDT Patient is alert, pain free, passing flatus and tolerating po fluids prior to discharge. Patient has been visited by Dr. Good. Patient has received and demonstrates understanding of discharge instructions. Patient ambulated to private auto accompanied by endo staff. * Tammy Duran RN - 06/01/2024 2:15 PM EDT Patient transferred to post endo s/p egd . Patient awake, drowsy Respirations are even and unlabored on room air. NSR in the 80s on the monitor. Abdomen soft and non distended. Vital signs stable. * Leonel Sinha RN - 06/01/2024 2:10 PM EDT See anesthesia record for medication administered during procedure. Leonel Sinha RN Pre cleaning of scope at the bedside started by apparatus engineering technologist. * Dipika Tamez RN - 06/01/2024 1:34 PM EDT Pt prepped and ready for anesthesia to assess. Call de leon in reach. documented in this encounter Plan of Treatment Upcoming Encounters Date Type Department Care Team (Late st Contact Info) Description 06/15/2024 2:30 PM EDT Imaging Radiology [facility] 1st Floor, [place] [address] [facility] [place] [id number] 08/26/2024 8:40 AM EDT Office Visit Hepatology, [facility] [address] [facility] [place] [address] Jalyn Gallego MD [address] [place] [id number] Scheduled Procedures Name Priority Associated Diagnoses Date/Ti me COLONOSCOPY FLEXIBLE PROXIMAL DIAGNOSTIC Recall Alcoholic hepatitis, unspecified whether ascites [...] 05/12/2019 Lipid Panel 12/16/2020 12/16/2015 COVID-19 Vaccine (24 season) 2023 Influenza Vaccine (FLU shot) (#1) [...] this encounter Medical Devices Implanted Type Area [employer] Device Identifier Shelf Expiration Date Model / Serial / Lot Lens Intraoc 24.0 - [id number] - [id number] Implanted:Qty: 1 on 02/26/2021 by Manuel Azevedo MD at OR [facility] Right: Eye [employer] 04/15/2024 [id number] / [id number] / [id number] Lens Intraoc 23.5 - [id number] - [id number] Implanted:Qty: 1 on 03/12/2021 by Manuel Azevedo MD at OR [facility] Left: Eye [employer] 09/15/2025 [id number] / [id number] / [id number] documented as of this encounter Procedures Procedure Name Priority Date/Time Associated Diagnosis Comments UPPER GI ENDOSCOPY 06/01/2024 1: 13 PM EDT documented in this encounter Results * UPPER GI ENDOSCOPY (06/01/2024 1:13 PM EDT) 06/01/2024 1:13 PM EDT Narrative Procedure Note Jalyn Gallego MD - 06/01/2024 1:13 PM EDT [facility] Patient Name: Sheyla Melton Procedure Date: 06/01/2024 1:13 PM Date of : 1965 Admit Type: Outpatient Note Status:Finalized Date of : 1965 Admit Type: Outpatient Age: 58 Room: [facility] Gender: Female Note Status: Finalized Procedure: Upper GI endoscopy Indications: Follow-up of esophageal varices Providers: John Good MD (Doctor), Rob Sinha RN Referring MD: Misael aVil MD (Referring MD), Jalyn Gallego MD (Referring MD) Medicines: Propofol per Anesthesia Complications: No immediate complications. Procedure: Pre-Anesthesia Assessment: - Prior to the procedure, a History and Physicalwas performed, and patient medications, allergies and sensitivities werereviewed. The patient's tolerance of previous anesthesia was reviewed. - The risks and benefits of the procedure and thesedation options and risks were discussed with the patient. All questions wereanswered and informed consent was obtained. - Patient identification and proposed procedurewere verified prior to the procedure by the physician and the nurse. The procedure wasverified in the procedure room. - Pre-procedure physical examination revealed nocontraindications to sedation. After obtaining informed consent, the endoscope waspassed under direct vision. All instruments were visually inspected immediatelybefore and after removal from the patient to ensure they are fully intact. Throughout the procedure, the patient's bloodpressure, pulse, and oxygen saturations were monitored continuously.The upper GI endoscopywas accomplished without difficulty. The patient tolerated the procedurewell. The GIF-H180 Endoscope ([id number]) was introduced through the mouth, andadvanced to the second part of duodenum. 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 A post variceal banding scar was found in the lower third of theesophagus. The scar was unremarkable in appearance. There is no endoscopic evidence of varices in the entire esophagus. Mild portal hypertensive gastropathy was found in the stomach. The duodenal bulb and second portion of the duodenum were normal. Impression: - Scar in the lower third of the esophagus. Noresidual varices seen. - Portal hypertensive gastropathy. - Normal duodenal bulb and second portion of theduodenum. - No specimens collected. Recommendation: - Discharge patient to home. - Repeat upper endoscopy in 1 year forsurveillance. - Return to referring physician. John Good MD 06/01/2024 2:13:56 PM This report has been signed electronically. Jalyn Gallego MD GASTRO UPPER documented in this encounter Administered Medications Inactive Administered Medications - up to 3 most recent administrations Medication Order MAR Action Action Date Dose Rate Site Acetaminophen (Tylenol) tab 650 mg 650 mg, Oral, PRN Pain, Mild, Starting on Thu06/01/24 at 1420, Until Thu06/01/24 at 1848, For 1 dose, Maximum of 4 grams (4000 mg) per day., Post-op isolyte-S pH 7.4 infusion Intravenous, at 75 mL/hr, for Outpatient patient Plasma-LYTE 148, isolyte-S, and isolyte-S pH 7.4 are considered equivalent - including for MAR barcode scanning., CONTINUOUS, Starting on Thu06/01/24 at 1345, Until Thu06/01/24 at 1848, Pre-Op Continue from Pre-Op 06/01/2024 1:59 PM EDT 75 mL/hr New Bag 06/01/2024 1:34 PM EDT 75 mL/hr 75 mL/hr documented in this encounter Active and Recently Administered Medications Times are shown in EDT. Continuous Medication Order 05/30/2024 05/31/2024 06/01/2024 isolyte-S pH 7.4 infusion Intravenous, at 75 mL/hr, for Outpatient patient Plasma-LYTE 148, isolyte-S, and isolyte-S pH 7.4 are considered equivalent - including for MAR barcode scanning., CONTINUOUS, Starting on Thu06/01/24 at 1345, Until Thu06/01/24 at 1848, Pre-Op 1334 (New Bag - Prov ider: Dipika Tamez RN)1359 (Continue from Pre-Op - Provider: Guy Humphrey CRNA)1409 (Anes Intra-Op Fluid - Provider: Guy Humphrey CRNA) PRN Medication Order 05/30/2024 05/31/2024 06/01/2024 Acetaminophen (Tylenol) tab 650 mg 650 mg, Oral, PRN Pain, Mild, Starting on Thu06/01/24 at 1420, Until Thu06/01/24 at 1848, For 1 dose, Maximum of 4 grams (4000 mg) per day., Post-op documented in this encounter Care Teams Email Production Specialist Relationship Specialty Start Date End Date Misael Vail MD [address] [place] [id number] PCP - General Family Medicine 06/01/24 documented as of this encounter
--- OUTSIDE RECORDS SUMMARY | 2024-06-03 19:46 | External Medical Summary | Summary of Care ---
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 Name Role Phone Unavailable Primary Care Provider Unavailabl e Reason for Visit * Reason Onset Date Comments Test Results 01/25/2024 Encounter Details Date Type Department Care Team (Late st Contact Info) Description 01/25/2024 Telephone Family Practice [facility] [address] [facility] [place] [address] Eryn Devlin, [address] [facility] [place] [id number] Test Results Allergies Active Allergy Reactions Criticality Noted Date Comments Gluten Abdominal pain 07/03/2014 Gas, bloating Prednisone Diarrhea,Nausea/vomiting 07/08/2019 documented as of this encounter (statuses as of 04/25/2024) Medications Medication Sig Dispensed Refills Start Date End Date Status pyridOXINE (VITAMIN B-6) 100 MG Tablet 1 Tablet. 06/28/2019 Active Vitamin D3 125 MCG (5000 UT) Oral Capsule Take 1 Capsule by mouth in the morning. Active Zinc 25 MG Oral Tablet Take by mouth daily. Active Black [place] Pollen 1:20 Subcutaneous Solution Inject under the skin. Active Pantoprazole Sodium 40 MG Oral Tablet Delayed Release (Protonix) 40 mg orally twice a day 180 Tablet 01/15/2024 Active Vitamin B-12 500 MCG Sublingual Tablet Sublingual (Vitamin B-12) Place 1 Tablet under the tongue in the morning. Active Calcium Lactate 100 MG Oral Tablet Take by mouth. Active Potassium Bicarbonate 99 MG Oral Capsule Take by mouth. Twice weekly Active Oil of Oregano 1500 MG CAPS Take by mouth. 4 Discontinued Milk Thistle 1000 MG Capsule Take 1 Capsule by mouth in the morning. 4 Discontinued Sucralfate 1 GM/10ML Oral Suspension (Carafate) Take 1 g (10 mL) orally four times daily for 14 days 560 mL 01/15/2024 4 Discontinued documented as of this encounter (statuses as of 04/25/2024) Active Problems Problem Noted Date Diagnosed Date Fatty liver 03/01/2024 Alcoholic 01/22/2024 Gastroesophageal reflux dise ase with esophagitis without hemorrhage 01/21/2024 Esophageal varices determined by endoscopy 09/09 Gluten intolerance 06/02/2019 Tobacco use disorder 12/25/2015 documented as of this encounter (statuses as of 04/25/2024) Resolved Problems Problem Noted Date Diagnosed Date Resolved Date History of acute hepatitis 09/09/2019 0 01/21/2024 History of ETOH abuse 07/10/20192023 Deviated nasal septum 05/25/20192023 Recurrent sinus infections 05/25/2019 0 01/21/2024 Mixed rhinitis 12/25/2015 01/21/2024 documented as of this encounter (statuses as of 04/25/2024) Immunizations Name Administration Dates Next Due Diptheria/Tetanus (Adult) 11/19/2006 HEP A - Hepatitis A (Adult > 18 yrs) 09/09/2019 Hepatitis B, 20+ yrs 11/28/2019,09/09/2019 documented as of this encounter Social History Tobacco Use Types Packs/Day Years Used Date Smoking Tobacco: Every Day Cigarettes 0.7 35 Smokeless Tobacco: Never Comments:15 to 18 cigarettes a day/ no passive smoke Alcohol Use Standard Drinks/Week Comments Not Currently 0 (1 standard drink = 0.6 oz pure alcohol) none except sips since 07/2019 PHQ-2 Answer Date Recorded PHQ-2 Score 0 [...] encounter Miscellaneous Notes * Telephone Encounter - Jamie Murillo OSA - 01/28/2024 9:48 AM EDT Called and spoke to pt, pt called in yesterday and schedule an appointment with Dr. Vail in February.Pt states that they will see about switching PCP during that appointment, as she has been seeing Dr. Vail more frequently * Telephone Encounter - Snow Harry RN - 01/27/2024 12:06 PM EDT Scheduling, please assist with making appt in 3 mo with AP and in 6mo with Dr Devlin. Called for [facility] discharge notes. Placed on Dr Devlin's desk Called pt and gave message. She will come in for labs in 1 mo. * Telephone Encounter - Eryn Devlin DO - 01/26/2024 12:25 PM EDT Baseline unclear, can we get copy of discharge summary please? Sodium low but likely at baseline Cont to abstain from etoh Recheck labs in 1 month, schedule OV for f/u w/AP in 3 months, 6 months w/me * Telephone Encounter - Misael Vail MD - 01/26/2024 11:47 AM EDT Low but stable sodium level. * Telephone Encounter - Tawnya Hendrickson OSA - 01/25/2024 4:39 PM EDT Pt calling in follow up on previous request. Informed PT of call back time frame. * Telephone Encounter - Michaela Pantoja LPN - 01/25/2024 4:37 PM EDT Please review and advise. * Telephone Encounter - Judy De Los Santos OSA - 01/25/2024 12:12 PM EDT Who is Requesting Test Results: pt Primary Care Provider : Eryn Devlin DO Tests Results Requested : BMP Date of Test : 01/21 Location of Test: [facility] Ordering Provider: Dr. Vail Patient has been made aware that the turnaround time for test results are typically as follows: Laboratory results = within 2-3 days ([facility]), 3-5 days (Non-[facility], ie. [facility]) Urine Cultures = within 2-3 days depending on growth within the culture Pathology results (biopsy results/PAP) = 1-2 weeks Radiology results = about 1 week Cologuard results = within 2 weeks from the shipment date COVID testing = about 24 hours documented in this encounter Plan of Treatment Upcoming Encounters Date Type Department Care Team (Latest Contact Info) Description 04/27/2024 12:20 PM EDT Office Visit Family Practice [facility] [address] [place] [address] Misael Vail MD [address] [place] [address] 05/16/2024 7:15 AM EDT Imaging Radiology [facility] [address] [place] [address] 06/01/2024 2:30 PM EDT Hospital Encounter [facility]O [facility], Endoscopy Room [facility] [address] [place] [id number] John Good MD [address] [place] [address] 06/01/2024 2:30 PM EDT - 06/01/2024 3:00 PM EDT Surgery ENDO [facility], Endoscopy Room [facility] [address] [place] [phone] John Good MD [address] [place] [address] ESOPHAGOGASTRODUODENOSCOPY (EGD), FLEXIBLE, TRANSORAL, DIAGNOSTIC 08/26/2024 8:40 AM EDT Office Visit Hepatology, [facility] [address] [place] [address] Jalyn Gallego MD [address] [place] [address] Scheduled Procedures Name Priority Associated Diagnoses Date/Ti [...] 2 - PCV) 1970 HIV Screening 1979 HPV/Co-Test 1994 Mammogram 2004 DTaP,Tdap,and Td Vaccines [...] Panel 12/16/2020 12/16/2015 COVID-19 Vaccine ( - 2022-2 4 season) 2023 Influenza Vaccine (FLU shot) (Season Ended) 2024 Hepatitis C Screening Completed 06/24/2019 GARDASIL-HPV IMMUNIZATION SERIES Aged Out No longer eligible b ased on patient's age to complete this topic MENINGOCOCCAL (MENACTRA/MENVEO) Aged Out No longer eligible b ased on patient's age to complete this topic documented as of this encounter Medical Devices Implanted Type Area Lock And Dam Equipment Repairer Device Identifier Shelf Expiration Date Model / Serial / Lot Lens Intraoc 24.0 - [id number] - [id number] Implanted:Qty: 1 on 02/26/2021 by Manuel Azevedo MD at OR [facility] Right: Eye [employer] 04/15/2024 [id number] / [id number] / [id number] Lens Intraoc 23.5 - [id number] - [id number] Implanted:Qty: 1 on 03/12/2021 by Manuel Azevedo MD at OR [facility] Left: Eye [employer]OM[employer] 09/15/2025 [id number] / [id number] / [id number] documented as of this encounter Results * (ABNORMAL) COMPREHENSIVE METABOLIC PANEL (02/16/2024 10:27 AM EDT) BUN 4(L) 6 - 20 mg/dL 02/16/2024 11:58 AM EDT [facility] Creatinine 0.6 0.5 - 1.0 mg/dL 02/16/2024 11:58 AM EDT [facility] Estimated Glomerular Filtration Rate >90 >=60 mL/min 02/16/2024 11:58 AM EDT [facility] Comment:eGFR is calculated b ased on the CKD-EPI 2020 equation Sodium 135 135 - 146 mmol/L 02/16/2024 11:58 AM EDT [facility] Potassium 4.2 3.5 - 5.1 mmol/L 02/16/2024 11:58 AM EDT [facility] Chloride 98 98 - 107 mmol/L 02/16/2024 11:58 AM EDT [facility] CO2 22 22 - 32 mmol/L 02/16/2024 11:58 AM EDT [facility] Anion Gap 15 7 - 15 mmol/L 02/16/2024 11:58 AM EDT [facility] Glucose 126(H) 70 - 120 mg/dL 02/16/2024 11:58 AM EDT [facility] Albumin 4.0 3.8 - 5.0 g/dL 02/16/2024 11:58 AM EDT [facility] AST 86(H) 10 - 35 U/L 02/16/2024 11:58 AM EDT [facility] Comment:Result may be falsel y elevated due to hemolysis. Alkaline Phosphatase 156(H) 35 - 130 U/L 02/16/2024 11:58 AM EDT [facility] Bilirubin, Total 1.4(H) <=1.2 mg/dL 02/16/2024 11:58 AM EDT [facility] Calcium 10.1 8.4 - 10.2 mg/dL 02/16/2024 11:58 AM EDT [facility] Protein 8.4(H) 6.0 - 8.3 g/dL 02/16/2024 11:58 AM EDT [facility] ALT 36(H) 10 - 35 U/L 02/16/2024 11:58 AM EDT [facility] Blood Venous blood specimen / Unknown Venipuncture / Unknown 02/16/2024 10:27 AM EDT 02/16/2024 10:27 AM EDT Eryn Devlin DO LAB BLOOD ORDERABLE S [facility] [address] [facility] [place] [address] documented in this encounter Visit Diagnoses Diagnosis Alcoholic (HCC)- Primary Other and unspecified alcohol dependence, unspecified drinking behavior Hyponatremia Hyposmolality and/or hyponatremia Esophageal varices determined by endoscopy (HCC) Esophageal varices (HCC) Esophageal varices without mention of bleeding documented in this encounter
[2024-06-03] MEDS: PANTOprazole 40 MG in SYRINGE 0 ML IV SCH (20:06)
--- NOTE | 2024-06-04 07:16 | Hospitalist Progress Note ---
Date of Service June 04, 2024 Assessment & Plan Plan EGD with Dr. Good 06/01 Findings & Specimens: A single area of ectopic gastric mucosa was found in the upper third of the esophagus. A post variceal banding scar was found in the lower third of the esophagus. The scar was unremarkable in appearance. There is no endoscopic evidence of varices in the entire esophagus. Mild portal hypertensive gastropathy was found in the stomach. The duodenal bulb and second portion of the duodenum were normal. Impression: - Scar in the lower third of the esophagus. No residual varices seen. - Portal hypertensive gastropathy. - Normal duodenal bulb and second portion of the duodenum. - No specimens collected. Recommendation: - Discharge patient to home. - Repeat upper endoscopy in 1 year for surveillance. - Return to referring physician. Admission and Anticipated Discharge Date Admission Date: June 03, 2024 Results & Data Results & Data Vital Signs (Past 12 Hours) Vital Signs Temp Pulse Pulse Resp BP Pulse Ox O2 Del Method 06/04/24 04:55 36.8 C 89 20 111/76 92 Room Air 06/03/24 23:06 37.0 C 91 H 20 118/72 95 Room Air 06/03/24 22:12 78 06/03/24 19:42 36.9 C 89 20 122/77 92 Room Air
--- NOTE | 2024-06-04 07:16 | Communication Note ---
Date of Service: June 04, 2024 Patient admitted 06/03 during downtime. HP in paperchart. Admitted for Hematemesis. Hgb stable overnight.
[2024-06-04] MEDS: NICOTINE 21 MG/24 HR TDSY TD SCH (07:42)
[2024-06-04 08:01] LABS: Hematocrit (blood only) 33.3 % (37.0-47.0); Hemoglobin 11.8 g/dl (12.0-16.0); Mean Corpuscular Hgb Conc 35.4 g/dL (32.0-36.0); Mean Corpuscular Volume 104.4 fL (80.0-100.0); Mean Platelet Volume 11.7 fL (9.4-12.4); Platelet Count 112 K/uL (130-400); RDW Coefficient of Variation 14.5 % (11.5-14.5); RDW Standard Deviation 55.4 fL (36.4-46.3); Red Blood Count 3.19 M/uL (4.20-5.40); White Blood Count 6.48 K/ul (4.8-10.8)
[2024-06-04 08:08] LABS: Alanine Aminotransferase 28 U/L (7-52); Albumin Globulin Ratio 1.3 (0.9-2); Albumin Level 3.6 gm/dl (3.4-5.0); Alkaline Phosphatase 89 U/L (34-104); Anion Gap 6 (3-11); Aspartate Aminotransferase 45 U/L (13-39); BUN Creatinine Ratio 36.4 (10-20); Bilirubin,Total 2.5 mg/dl (0.2-1.0); Blood Urea Nitrogen 20 mg/dl (6-23); Calcium 8.9 mg/dl (8.6-10.3); Carbon Dioxide 28 mmol/L (21-32); Chloride 103 mmol/L (98-107); Est GFR (Non-African American) 102.7 ml/min; Globulin 2.7 gm/dl (2.5-4.0); Glucose 98 mg/dl (70-99(Fasting)); Magnesium 1.2 mg/dl (1.7-2.4); Phosphorus 3.5 mg/dl (2.5-4.9); Potassium 3.8 mmol/L (3.5-5.1); Sodium 137 mmol/L (136-145); Total Protein 6.3 gm/dl (6.0-8.3)
--- NOTE | 2024-06-04 08:29 | Emergency Department Note ---
Impression & Plan Acute upper gastrointestinal bleeding ADMIT ED Provider Note Patient was seen on 06/03/2024. Note entry was delayed secondary to EMR downtime that took place on 06/03/2024. HPI: History obtained from patient. The patient is a 58-year-old female with history of alcohol abuse, esophageal varices status post banding, who presents the emergency department with a chief complaint of hematemesis. Patient states that she was nauseous overnight and had an episode of "very dark" colored vomit that she states was concerning for blood. Patient does have a history of upper GI bleed with esophageal varices that required banding by [facility] gastroenterology this past December. Patient states that she had an EGD performed on Thursday of this week that she states went "well". She states that she was not noted to have any problems from her previous banding sites. She states this was scheduled on a routine basis. Despite the patient's issues with upper GI bleeding, she states she does continue to drink alcohol and states she has approximately 3 vodka and water mixed drinks a day. On arrival here to the ED the patient states she does feel nauseous but she denies any abdominal pain. She is otherwise hemodynamically stable on my initial assessment. ROS: - Per HPI Differential Diagnosis: Upper GI bleed secondary to hemorrhage from esophageal varices, acute gastritis, peptic ulcer disease, acute pancreatitis, viral gastroenteritis, amongst other potential pathologies. *Outpatient medications and allergy history reviewed. PE: General: Alert HEENT: Normocephalic, trachea midline Eyes: Extraocular eye movement is intact, no scleral erythema Pulmonary: Clear to auscultation bilaterally, no wheezing Cardio: Regular rate and rhythm GI: Abdomen is soft to palpation : No suprapubic tenderness MSK: No evidence of trauma or malformation of the extremities, no edema Skin: No evidence of rash Neuro: Alert, no focal deficits Psychiatric: Cooperative INDEPENDENT INTERPRETATIONS: pvc monitor: (As interpreted by myself): - An order was placed for continuous cardiac monitoring - Patient was noted to be in sinus rhythm with a rate of 80 EKG: (As interpreted by myself): Rate: 107 Rhythm: Sinus tachycardia Intervals: Within normal limits ST changes: No ST elevation Time: 0649 Interventions provided in ED: -IV Protonix bolus and drip, IV Zofran, nicotine patch Medical Decision Making: IV was established and lab work obtained, patient was placed on pvc monitor. Lab work is largely reassuring, patient's hemoglobin is 14.6. CT imaging of the abdomen pelvis did not show any evidence of any critical findings. Fibrosis was noted in the area of the right hepatic lobe on CT imaging by the interpreting radiologist and recommendation was made for the patient to obtain MRI of the liver, patient tells me that she already had an MRI of her liver done in the outpatient setting through [facility] (I do not have access to these records in real time seeing the patient secondary to downtime issues on 06/03). Overall, I feel the patient is high risk for major upper GI bleeding although she is hemodynamically stable at this time with reassuring lab work. She states she feels improved on my reassessment. I discussed the patient's presentation with the on-call hatchery employee, Dr. Langley, and he did evaluate the patient at the bedside. Case was also discussed with the on-call hospitalist for [facility], Dr. Harley, and the patient was placed for admission in stable condition. Consultants/Discussions held with other healthcare providers: -Gastroenterology, Dr. Langley -Hospitalist, Dr. Harley Disposition discussion held by myself with: -Patient Diagnosis: 1. Upper GI bleed, acute 2. Nausea and vomiting, acute 3. History of esophageal varices status post banding Disposition: Admission Gio Garcia DO Emergency Medicine Past Med/Surg History Problem List (Updated 06/04/24 @ 08:33 by Gio Garcia DO) Acute upper gastrointestinal bleeding (Acute) Encounter for pre-operative examination Hypotension Syncope (Acute) Acute upper gastrointestinal bleeding (Acute) Alcoholic hepatitis Hyperbilirubinemia (Acute) Abnormal urinalysis (Acute) Lactic acidosis (Acute) Transaminitis (Acute) Hyperbilirubinemia (Acute) Prolonged QT interval (Acute) Jaundice (Acute) Hypokalemia (Acute) Hypomagnesemia (Acute) Alcoholism, chronic (Chronic) Medical History Encounter for pre-operative examination Celiac disease Tobacco use Alcohol use Colposcopy (06/23/13) Surgical History H/O eye surgery Family History Other Prostate cancer Stroke Social History Smoking Status: Current every day smoker Tobacco Type: Cigarettes Second Hand Exposure: No; Do You Dip or Chew Tobacco: No; Hx Alcohol Use: Yes Alcohol type: hard liquor Alcohol type Comment: h/o heavy vodka intake, stopped drinking 3 weeks ago Hx Substance Use: No Preferred Language: Occitan Communication Ability: Effective Information Technology Associate Required: No Beliefs That Will Affect Care: None marital status: Single Current Living Situation: Spouse Current Living Situation Comment: [place] current occupational status: unemployed Feels Safe at Home: Yes Assistive Devices: None Allergies Allergies Allergy/AdvReac Type Severity Reaction Status Date / Time gluten Allergy Unknown Hives Verified 06/28/19 17:00 prednisone AdvReac Intermediate Nausea,vomiting Verified 06/28/19 17:00 and diarrhea Home Meds Home Medications Medication Instructions Recorded Confirmed fluticasone propionate 50 2 spray intranasal DAILY PRN 06/28/19 01/10/24 mcg/actuation nasal Allergy Symptoms spray,suspension (Flonase Allergy Relief) oregano oil 1,500 mg capsule 0 mg PO DAILY 06/28/19 01/10/24 pyridoxine (vitamin B6) 100 mg 100 mg PO DAILY 06/28/19 01/10/24 tablet (Vitamin B-6) Previous Rx's Medication Instructions Recorded pantoprazole 40 mg tablet,delayed 40 mg PO BID #180 tabs 01/15/24 release Results & Data (ED) Laboratory Data 06/04/24 07:12 06/04/24 07:12 Lab Results 06/03/24 06/03/24 Range/Units 07:12 08:22 WBC 7.91 (4.8-10.8) K/ul RBC 3.90 L (4.20-5.40) M/uL Hgb 14.6 (12.0-16.0) g/dl Hct 40.8 (37.0-47.0) % MCV 104.6 H (80.0-100.0) fL MCH 37.4 H (25.0-34.0) pg MCHC 35.8 (32.0-36.0) g/dL RDW Std Deviation 55.7 H (36.4-46.3) fL RDW Coeff of Car 14.5 (11.5-14.5) % Plt Count 147 (130-400) K/uL MPV 11.6 (9.4-12.4) fL Immature Gran % (Auto) 0.3 % Neut % (Auto) 72.3 % Lymph % (Auto) 19.0 % [place] % (Auto) 7.5 % Eos % (Auto) 0.3 % Baso % (Auto) 0.6 % Neut # (Auto) 5.73 (1.40-6.50) K/uL Lymph # (Auto) 1.50 (1.20-3.40) K/uL [place] # (Auto) 0.59 (0.11-0.59) K/uL Eos # (Auto) 0.02 (0.00-0.50) K/uL Baso # (Auto) 0.05 (0.00-0.20) K/uL Immature Gran # (Auto) 0.02 (0.01-0.20) K/uL PT 15.3 H Cancelled (9.0-12.0) Seconds INR 1.5 H Cancelled (0.9-1.1) Sodium 137 (136-145) mmol/L Potassium 4.2 (3.5-5.1) mmol/L Chloride 100 (98-107) mmol/L Carbon Dioxide 27 (21-32) mmol/L Anion Gap 10 (3-11) BUN 24 H (6-23) mg/dl Creatinine 0.53 L (0.6-1.2) mg/dl Est Cr Clr Drug Dosing Not Reportable Est GFR ( Amer) 120.5 ml/min Est GFR (Non-Af Amer) 103.9 ml/min BUN/Creatinine Ratio 45.3 H (10-20) Glucose 106 H (70-99(Fasting)) mg/dl Calcium 9.6 (8.6-10.3) mg/dl Total Bilirubin 1.3 H (0.2-1.0) mg/dl AST 65 H (13-39) U/L ALT 43 (7-52) U/L Alkaline Phosphatase 126 H (34-104) U/L Troponin I High Sens 4.3 (0-14) pg/ml Total Protein 7.7 (6.0-8.3) gm/dl Albumin 4.2 (3.4-5.0) gm/dl Globulin 3.5 (2.5-4.0) gm/dl Albumin/Globulin Ratio 1.2 (0.9-2) Blood Type A Positive Antibody Screen NEGATIVE Administered Medications Pantoprazole Sodium 40 mg/ (Syringe) 10 mls @ 5 mls/min IV BID [facility] Stop: 07/03/24 20:59 Last Admin: 06/04/24 07:42 Dose: 5 mls/min Documented By: Admin: 06/03/24 20:06 Dose: 5 mls/min Documented By: ALEXA Miscellaneous (Remove Nicoderm Patch) 1 each N/A DAILY@0859 [facility] Stop: 07/04/24 08:58 Last Admin: 06/04/24 07:42 Dose: 1 each Documented By: NELLI Nicotine (Nicotine 21 Mg/24 Hr Tdsy) 1 patch TD QAM [facility] Stop: 07/04/24 08:59 Last Admin: 06/04/24 07:42 Dose: 1 patch Documented By: NELLI Discontinued Medications Ioversol (Optiray 320 100ml) 94 ml IV ONCE ONE Stop: 06/03/24 15:17 Last Admin: 06/03/24 15:16 Dose: 94 ml Documented By: MELISSA Nicotine (Nicotine 21 Mg/24 Hr Tdsy) Confirm Administered Dose 1 patch TD .STK- MED ONE Stop: 06/03/24 08:30 Last Admin: 06/03/24 16:44 Dose: Not Given Documented By: NELLI Ondansetron HCl (Ondansetron Inj 2 Mg/Ml 2 Ml Vial) Confirm Administered Dose 4 mg .ROUTE .STK-MED ONE Stop: 06/03/24 07:24 Last Admin: 06/03/24 16:44 Dose: Not Given Documented By: NELLI Discharge Plan Visit Data Chief Complaint: Vomiting Stated Complaint: THROWING UP BLOOD ED Provider: ISELAP,ED Discharge Problem: Acute upper gastrointestinal bleeding Patient Disposition: Admitted As Inpatient
--- NOTE | 2024-06-04 09:15 | Gastroenterology Progress Note ---
Date of Service June 04, 2024 Assessment & Plan (1) Acute upper gastrointestinal bleeding: Plan: Seems to be back to normal by her report. Will advance diet. Okay with me to go home and follow up with Dr. Good. Admission and Anticipated Discharge Date Admission Date: June 03, 2024 Subjective Feeling well, wants to go home. No more vomiting. No passing of black stools. Wants to eat. Hemoglobin stable Physical Exam Physical Exam: She looks well Constitutional: WD/WN, vitals as above Results & Data Vital Signs (Past 12 Hours) Vital Signs Temp Pulse Pulse Resp BP Pulse Ox O2 Del Method 06/04/24 08:23 37.2 C 78 16 103/69 92 Room Air 06/04/24 04:55 36.8 C 89 20 111/76 92 Room Air 06/03/24 23:06 37.0 C 91 H 20 118/72 95 Room Air 06/03/24 22:12 78
--- NOTE | 2024-06-04 10:26 | Discharge Summary ---
Discharge Summary Date of Service June 04, 2024 Principal Dx & Hospital Course #1 = Principal Diagnosis (1) Portal hypertensive gastropathy: Plan Ms. Melton is a 58 year old woman with alcoholic liver disease, esophageal varices, celiac disease, hyperthyroidism as per records, ongoing tobacco/alcohol abuse and recent EGD with portal gastropathy who is admitted for concern of hematemesis. Patient underwent recent EGD on 06/01 "Impression: - Scar in the lower third of the esophagus. No residual varices seen. - Portal hypertensive gastropathy. - Normal duodenal bulb and second portion of the duodenum. - No specimens collected." Observed overnight with no further hematemesis. GI evaluated with no additional recommendations. On day of discharge, patient reports feeling well and eager to go home. #Reported hematemesis #Portal hypertensive gastropathy stable hgb continue ppi BID follow up with GI No further changes were made to plan Notes For Next Care Provider Medication Changes From Visit Continue protonix bid Admission HPI Per Admitting Provider H&P documented on paper chart on 06/03 12/18 global down time. Admission CC for hematemesis. See scanned documents Admission Exam Per Admitting Provider H&P documented on paper chart on 06/03 12/18 global down time. See scanned documents Discharge Exam Constitutional WD/WN, vitals as above Respiratory normal respiratory effort, lungs clear to auscultation Cardiovascular RRR, no murmur, no edema Gastrointestinal (Abdomen) normal bowel sounds, soft, nontender, no hepatosplenomegaly Updated Medication List Medication Instructions Recorded Confirmed Type fluticasone propionate 50 2 spray intranasal DAILY PRN 06/28/19 01/10/24 History mcg/actuation nasal Allergy Symptoms spray,suspension (Flonase Allergy Relief) oregano oil 1,500 mg capsule 0 mg PO DAILY 06/28/19 01/10/24 History pyridoxine (vitamin B6) 100 mg 100 mg PO DAILY 06/28/19 01/10/24 History tablet (Vitamin B-6) pantoprazole 40 mg tablet,delayed 40 mg PO BID #180 tabs 06/04/24 Rx release Hospital Stay Data Diagnostic Imagining Performed 06/03/24 15:15 CT abd pelvis IV con only Stat Pending Results Patient Have Any Pending Studies at Discharge: No Discharge Instructions Given to Patient (Per Discharging Provider) You were admitted for concern of hematemesis. Your blood level remained stable. Please follow up with Director Risk. Total Time Total Time Spent Total Time Spent (In Minutes): 35
== END 2024-06-04 10:55 | disposition home or self-care (01) | DRG 442 ==
LOC: 2N 11:59 → ED 13:34 → SUATTDRO 17:11

== ENCOUNTER 2025-01-24 21:54 | Inpatient (IN) ==
[2025-01-24] MEDS ORDERED: SODIUM CHLORIDE 0.9% 100 ML IV PRN (23:05)
[2025-01-24] MEDS ORDERED: SODIUM CHLORIDE 0.9% 50 ML IV PRN (23:05)
[2025-01-24] MEDS: ONDANSETRON INJ 2 MG/ML 2 ML VIAL IV STA (23:20)
[2025-01-24] MEDS: SODIUM CHLORIDE 0.9% 1,000 ML IV ONE (23:20)
[2025-01-24 23:26] LABS: Basophils # (auto) 0.07 K/uL (0.00-0.20); Basophils % (auto) 0.5 %; Eosinophils # (auto) 0.07 K/uL (0.00-0.50); Eosinophils % (auto) 0.5 %; Hematocrit (blood only) 32.2 % (37.0-47.0); Hemoglobin 11.9 g/dl (12.0-16.0); Immature Granulocytes # (auto) 0.15 K/uL (0.01-0.20); Immature Granulocytes % (auto) 1.1 %; Lymphocytes # (auto) 2.45 K/uL (1.20-3.40); Lymphocytes % (auto) 17.7 %; Mean Corpuscular Hemoglobin 38.6 pg (25.0-34.0); Mean Corpuscular Volume 104.5 fL (80.0-100.0); Mean Platelet Volume 12.5 fL (9.4-12.4); Monocytes # (auto) 1.51 K/uL (0.11-0.59); Monocytes % (auto) 10.9 %; Neutrophils # (auto) 9.62 K/uL (1.40-6.50); Neutrophils % (auto) 69.3 %; Nucleated RBC # (auto) 0.06 K/uL (0.00-0.12); Nucleated RBC % (auto) 0.4 %; Platelet Count 176 K/uL (130-400); RDW Coefficient of Variation 17.2 % (11.5-14.5); RDW Standard Deviation 65.3 fL (36.4-46.3); Red Blood Count 3.08 M/uL (4.20-5.40); White Blood Count 13.87 K/ul (4.8-10.8)
[2025-01-24] MEDS: PANTOprazole 80 MG in DEXTROSE 5% 100 ML IV ONE (23:27)
[2025-01-24 23:33] LABS: Albumin Globulin Ratio 1.1 (0.9-2); Albumin Level 3.9 gm/dl (3.4-5.0); BUN Creatinine Ratio 17.7 (10-20); Bilirubin,Total 6.6 mg/dl (0.2-1.0); Creatinine Clr Calc Pharmacy 93.8 ml/min; Globulin 3.4 gm/dl (2.5-4.0); Potassium 3.1 mmol/L (3.5-5.1); Total Protein 7.3 gm/dl (6.0-8.3)
[2025-01-24] MEDS: PANTOprazole 40 MG in DEXTROSE 5% MINI-B 100 ML IV SCH (23:45)
[2025-01-24] MEDS ORDERED: cefTRIAXone SODIUM 2,000 MG/50 ML BAG IV STA (23:49)
[2025-01-24 23:50] LABS: INR 1.8 (0.9-1.1); Prothrombin Time 18.8 Seconds (9.0-12.0)
[2025-01-24] MEDS ORDERED: THIAMINE HCL 100 MG in SYRINGE 9 ML IV STA (23:50)
--- NOTE | 2025-01-24 23:56 | Emergency Department Note ---
Impression & Plan Acute upper gastrointestinal bleeding, Jaundice ED Provider Note CHIEF COMPLAINT: Vomiting blood, bloody stool HISTORY OF PRESENT ILLNESS: This 59-year-old female patient past medical history of esophageal varices, alcohol dependency, hyperbilirubinemia, alcoholic hepatitis presents to the emergency department with complaints of 1 episode of dark red hematemesis and a subsequent melanotic stool about an hour later. She states there is no significant pain, no fever. She has had a similar situation in the past and has had esophageal banding. REVIEW OF SYSTEMS: A review of systems was performed with positives and pertinent negatives listed in the history of present illness. 10 systems were reviewed and are otherwise negative. ALLERGIES: see below MEDICATIONS: see below PMH: see below SOCIAL HISTORY: see below DDx: Upper GI bleed, peptic ulcer disease, variceal bleed, hepatitis, pancreatitis, PHYSICAL EXAM: Vital signs reviewed. General: Chronically ill-appearing 59-year-old female, in no significant distress. HEENT: positive scleral icterus, PERRLA, neck supple. Atraumatic. Cardiovascular: tachycardic but regular, no extra sounds Pulmonary: Clear to auscultation bilaterally, normal work of breathing. Abdomen: Soft, nontender, distended, no tympany to percussion Musculoskeletal: Atraumatic, no peripheral edema. GI: Normal rectal mucosa with small external hemorrhoids appreciated. Guaiac positive melanotic stool. Neurologic: Patient awake alert and oriented x 3, speech is clear Skin: Warm, dry, no rash EMERGENCY DEPARTMENT COURSE/MDM: This patient was evaluated and appeared to be in no significant distress. Patient is noted to be jaundiced with a tachycardia. IV fluids were initiated. Patient is noted to be guaiac positive from below with melanotic stool. Hemoglobin is 11.9. Patient was typed and crossed for 2 units PRBCs. She was started on a Protonix bolus and drip. I did speak with the cafe helper on-call, Dr. Stanley who requested octreotide and ceftriaxone be initiated. The patient has had no further vomiting in the emergency department. Patient was advised of the findings and plan. Case was discussed with the hospitalist service, Dr. Walsh who will evaluate the patient for admission and further management. MONITORING: An order for cardiac monitoring was placed and the patient is noted to be in a sinus tachycardia at 119 beats per minute. RADIOLOGY: chest x-ray to my interpretation reveals no evidence of focal lung consolidation or failure EKG: To my interpretation reveals a sinus tachycardia tachycardia at 144 bpm. DISPOSITION: admission I have personally spent greater than 45 minutes of critical care time in the direct management of this patient. This includes bedside care, interpretation of diagnostic studies, and testing, discussion with consultants, patient, and family members, and other required patient management activities. This 45 minutes is in excess of all separately billable procedures. Past Med/Surg History Problem List (Updated 01/29/25 @ 17:20 by Pearl Noel MD) Hematemesis Alcohol use Encounter for pre-operative examination Hypotension Acute upper gastrointestinal bleeding (Acute) Hyperbilirubinemia (Acute) Abnormal urinalysis (Acute) Lactic acidosis (Acute) Transaminitis (Acute) Jaundice (Acute) Medical History Portal hypertensive gastropathy Syncope Alcoholic hepatitis Hyperbilirubinemia Prolonged QT interval Alcoholism, chronic Hypomagnesemia Hypokalemia Acute upper gastrointestinal bleeding Hyponatremia Celiac disease Tobacco use Surgical History H/O eye surgery Family History Other Prostate cancer Stroke Social History Smoking Status: Current every day smoker Tobacco Type: Cigarettes Cigarettes Per Day: 1 pk; Second Hand Exposure: Yes; Do You Dip or Chew Tobacco: No; Hx Alcohol Use: Yes Alcohol type: hard liquor Alcohol type Comment: h/o heavy vodka intake, stopped drinking 3 weeks ago Hx Substance Use: No Preferred Language: Mongolian Communication Ability: Effective Safety Lamp Keeper Required: No Beliefs That Will Affect Care: None marital status: Single Current Living Situation: Spouse Current Living Situation Comment: [employer] [facility] current occupational status: unemployed Feels Safe at Home: Yes Assistive Devices: None Allergies Allergies Allergy/AdvReac Type Severity Reaction Status Date / Time gluten Allergy Unknown Hives Verified 01/24/25 23:50 prednisone AdvReac Intermediate Nausea,vomiting Verified 01/24/25 23:50 and diarrhea Home Meds Home Medications Medication Instructions Recorded Confirmed cholecalciferol (vitamin D3) 125 125 mcg PO QAM 01/24/25 01/24/25 mcg (5,000 unit) tablet (Vitamin D3) Previous Rx's Medication Instructions Recorded folic acid 1 mg tablet 1 mg PO QAM #30 tabs 01/27/25 pantoprazole 40 mg tablet,delayed 40 mg PO BID #60 tabs 01/27/25 release thiamine HCl (vitamin B1) 100 mg 100 mg PO QAM #30 tabs 01/27/25 tablet Results & Data (ED) Vital Signs Vital Signs - 24 hr 01/24/25 22:01 01/24/25 22:15 01/24/25 23:03 Temperature 36.7 C Temperature Source Temporal Artery Scan Pulse Rate 118 H 119 H 105 H Pulse Rhythm Respiratory Rate 16 15 Respiratory Effort / Characteristics Non-Labored Spontaneous Respiratory Depth Normal Respiratory Pattern Regular Blood Pressure 84/61 L 91/65 L Blood Pressure Mean 68 73 Pulse Oximetry 98 95 Oxygen Delivery Method Room Air Sepsis Recent Fever Within 48 Hours No Sepsis New/Unexplained Change in Mental Status N/A Sepsis Action Taken by Nursing No Action Required 01/24/25 23:11 01/24/25 23:15 01/24/25 23:30 Temperature Temperature Source Pulse Rate 115 H 106 H 94 H Pulse Rhythm Regular Respiratory Rate 17 16 22 Respiratory Effort / Characteristics Respiratory Depth Respiratory Pattern Blood Pressure 101/59 L 105/67 Blood Pressure Mean 73 79 Pulse Oximetry 95 97 Oxygen Delivery Method Room Air Sepsis Recent Fever Within 48 Hours Sepsis New/Unexplained Change in Mental Status Sepsis Action Taken by Long-Term Medications Current Medication List: was personally reviewed by me Laboratory Data Attestation: I reviewed the patient's lab results. 01/27/25 06:58 01/27/25 06:58 Lab Results 01/24/25 01/24/25 Range/Units 22:15 23:17 WBC 13.87 H (4.8-10.8) K/ul RBC 3.08 L (4.20-5.40) M/uL Hgb 11.9 L (12.0-16.0) g/dl Hct 32.2 L (37.0-47.0) % MCV 104.5 H (80.0-100.0) fL MCH 38.6 H (25.0-34.0) pg MCHC 37.0 H (32.0-36.0) g/dL RDW Std Deviation 65.3 H (36.4-46.3) fL RDW Coeff of Car 17.2 H (11.5-14.5) % Plt Count 176 (130-400) K/uL MPV 12.5 H (9.4-12.4) fL Immature Gran % (Auto) 1.1 % Neut % (Auto) 69.3 % Lymph % (Auto) 17.7 % [place] % (Auto) 10.9 % Eos % (Auto) 0.5 % Baso % (Auto) 0.5 % Neut # (Auto) 9.62 H (1.40-6.50) K/uL Lymph # (Auto) 2.45 (1.20-3.40) K/uL [place] # (Auto) 1.51 H (0.11-0.59) K/uL Eos # (Auto) 0.07 (0.00-0.50) K/uL Baso # (Auto) 0.07 (0.00-0.20) K/uL Immature Gran # (Auto) 0.15 (0.01-0.20) K/uL Absolute Nucleated RBC 0.06 (0.00-0.12) K/uL Nucleated RBC % (auto) 0.4 % PT 18.8 H (9.0-12.0) Seconds INR 1.8 H (0.9-1.1) Sodium 126 L (136-145) mmol/L Potassium 3.1 L (3.5-5.1) mmol/L Chloride 91 L (98-107) mmol/L Carbon Dioxide 24 (21-32) mmol/L Anion Gap 11 (3-11) BUN 11 (6-23) mg/dl Creatinine 0.62 (0.6-1.2) mg/dl Est Cr Clr Drug Dosing 93.8 ml/min eGFR 101.89 BUN/Creatinine Ratio 17.7 (10-20) Glucose 123 H (70-99(Fasting)) mg/dl Estimat Average Glucose 85 mg/dl Hemoglobin A1c 4.6 (4.5-5.6) % Osmolality 267 L (280-300) mOsm/kg Calcium 9.0 (8.6-10.3) mg/dl Total Bilirubin 6.6 H (0.2-1.0) mg/dl AST 85 H (13-39) U/L ALT 36 (7-52) U/L Alkaline Phosphatase 186 H (34-104) U/L Total Protein 7.3 (6.0-8.3) gm/dl Albumin 3.9 (3.4-5.0) gm/dl Globulin 3.4 (2.5-4.0) gm/dl Albumin/Globulin Ratio 1.1 (0.9-2) Blood Type A Positive Antibody Screen NEGATIVE Crossmatch See Detail Administered Medications Discontinued Medications Acetaminophen (Acetaminophen 325 Mg Tab) 650 mg PO Q8H PRN PRN Reason: Fever or headache Stop: 02/24/25 11:07 Last Admin: 01/25/25 23:18 Dose: 650 mg Documented By: EARLENE Acetaminophen (Acetaminophen 325 Mg Tab) Confirm Administered Dose 650 mg .ROUTE .STK-MED ONE Stop: 01/25/25 11:13 Last Admin: 01/25/25 11:15 Dose: 650 mg Documented By: FOSTER Folic Acid (Folic Acid 1 Mg Tab) 1 mg PO QAM [facility] Stop: 02/25/25 08:59 Last Admin: 01/27/25 07:59 Dose: 1 mg Documented By: Admin: 01/26/25 07:34 Dose: 1 mg Documented By: FOSTER Sodium Chloride (Nss) 1,000 mls @ 999 mls/hr IV .Q1H1M ONE Stop: 01/25/25 00:09 Last Infusion: 01/25/25 01:06 Dose: Infused Documented By: Admin: 01/24/25 23:20 Dose: 999 mls/hr Documented By: NELIDA Pantoprazole Sodium 40 mg/ (Dextrose) 100 mls @ 20 mls/hr IV Q5H [facility] Stop: 02/23/25 23:29 Last Infusion: 01/25/25 13:25 Dose: Infused Documented By: Admin: 01/25/25 08:17 Dose: 8 mg/hr, 20 mls/hr Documented By: Infusion: 01/25/25 08:17 Dose: Infused Documented By: Admin: 01/25/25 04:30 Dose: 8 mg/hr, 20 mls/hr Documented By: Infusion: 01/25/25 04:30 Dose: Infused Documented By: Admin: 01/24/25 23:45 Dose: 8 mg/hr, 20 mls/hr Documented By: ANDREIA Pantoprazole Sodium 80 mg/ (Dextrose) 120 mls @ 480 mls/hr IV NOW ONE Stop: 01/24/25 23:28 Last Infusion: 01/24/25 23:46 Dose: Infused Documented By: Admin: 01/24/25 23:27 Dose: 480 mls/hr Documented By: NELIDA Ceftriaxone Sodium (Rocephin) 2,000 mg in 50 mls @ 100 mls/hr IV NOW STA Stop: 01/25/25 00:17 Last Infusion: 01/25/25 01:30 Dose: Infused Documented By: Admin: 01/25/25 00:58 Dose: 100 mls/hr Documented By: ANDREIA Octreotide Acetate 50 mcg/ (Syringe) 10 mls @ 3 mls/min IV ONE STA Stop: 01/24/25 23:51 Last Admin: 01/25/25 01:18 Dose: 3 mls/min Documented By: NELIDA Octreotide Acetate 500 mcg/ (Sodium Chloride) 100.5 mls @ 10.05 mls/hr IV .Q10H [facility] Stop: 02/23/25 23:44 Last Admin: 01/27/25 11:07 Dose: 49.75 mcg/hr, 10 mls/hr Documented By: Infusion: 01/27/25 11:07 Dose: Infused Documented By: Admin: 01/27/25 01:55 Dose: 49.75 mcg/hr, 10 mls/hr Documented By: Infusion: 01/26/25 23:48 Dose: Infused Documented By: Admin: 01/26/25 13:03 Dose: 50 mcg/hr, 10.1 mls/hr Documented By: Infusion: 01/26/25 13:03 Dose: Infused Documented By: Admin: 01/26/25 03:22 Dose: 50 mcg/hr, 10.1 mls/hr Documented By: Infusion: 01/26/25 03:22 Dose: Infused Documented By: Admin: 01/25/25 17:24 Dose: 50 mcg/hr, 10.1 mls/hr Documented By: Infusion: 01/25/25 17:24 Dose: Infused Documented By: Admin: 01/25/25 08:17 Dose: 50 mcg/hr, 10.1 mls/hr Documented By: Infusion: 01/25/25 08:17 Dose: Infused Documented By: Admin: 01/25/25 00:57 Dose: 50 mcg/hr, 10.1 mls/hr Documented By: ANDREIA Thiamine HCl 100 mg/ Syringe 10 mls @ 2 mls/min IV NOW STA Stop: 01/24/25 23:57 Last Admin: 01/25/25 01:04 Dose: Not Given Documented By: ANDREIA Folic Acid 1 mg/ Syringe 10 mls @ 5 mls/min IV NOW STA Stop: 01/24/25 23:54 Last Admin: 01/25/25 00:12 Dose: 5 mls/min Documented By: ANDREIA Phytonadione 10 mg/ Dextrose 51 mls @ 102 mls/hr IV ONE ONE Stop: 01/25/25 00:22 Last Infusion: 01/25/25 01:06 Dose: Infused Documented By: Admin: 01/25/25 00:15 Dose: 102 mls/hr Documented By: ANDREIA Promethazine HCl (Phenergan) 6.25 mg in 50.25 mls @ 201 mls/hr IV NOW STA Stop: 01/25/25 01:23 Last Infusion: 01/25/25 01:30 Dose: Infused Documented By: Admin: 01/25/25 01:12 Dose: 201 mls/hr Documented By: ANDREIA Ceftriaxone Sodium (Rocephin) 2,000 mg in 50 mls @ 100 mls/hr IV Q24H [facility] Stop: 02/05/25 00:00 Last Infusion: 01/27/25 01:40 Dose: Infused Documented By: Admin: 01/27/25 00:00 Dose: 100 mls/hr Documented By: Infusion: 01/25/25 23:37 Dose: Infused Documented By: Admin: 01/25/25 23:07 Dose: 100 mls/hr Documented By: EARLENE Albumin Human (Albumin 25%) 25 gm in 100 mls @ 50 mls/hr IV ONE ONE Stop: 01/25/25 03:26 Last Infusion: 01/25/25 04:06 Dose: Infused Documented By: Admin: 01/25/25 02:07 Dose: 50 mls/hr Documented By: EARLENE Magnesium Sulfate/Dextrose (Magnesium Sulfate / D5w) 1 gm in 100 mls @ 50 mls/hr IV Q2H [facility] Stop: 01/25/25 09:59 Last Infusion: 01/25/25 10:22 Dose: Infused Documented By: Admin: 01/25/25 08:06 Dose: 50 mls/hr Documented By: Infusion: 01/25/25 08:04 Dose: Infused Documented By: Admin: 01/25/25 06:04 Dose: 50 mls/hr Documented By: Infusion: 01/25/25 06:04 Dose: Infused Documented By: Admin: 01/25/25 04:05 Dose: 50 mls/hr Documented By: Infusion: 01/25/25 04:05 Dose: Infused Documented By: Admin: 01/25/25 02:16 Dose: 50 mls/hr Documented By: EARLENE Potassium Chloride/Sodium Chloride (Normal Saline W/20 Meq Kcl) 20 meq in 1,000 mls @ 100 mls/hr IV .Q10H ONE Stop: 01/25/25 14:57 Last Infusion: 01/25/25 23:07 Dose: Infused Documented By: Infusion: 01/25/25 14:05 Dose: 100 mls/hr Documented By: Infusion: 01/25/25 12:10 Dose: 0 mls/hr Documented By: Admin: 01/25/25 11:15 Dose: 100 mls/hr Documented By: FOSTER Lidocaine HCl (Lidocaine 2% 2 Ml Vial/Amp(20mg/Ml)) Confirm Administered Dose 2 ml INFIL .STK-MED ONE Stop: 01/25/25 11:47 Last Admin: 01/25/25 13:46 Dose: Not Given Documented By: FOSTER Lidocaine HCl (Lidocaine 2% 2 Ml Vial/Amp(20mg/Ml)) Confirm Administered Dose 2 ml INFIL .STK-MED ONE Stop: 01/25/25 11:47 Last Admin: 01/25/25 13:46 Dose: Not Given Documented By: FOSTER Miscellaneous (Stat Iv/Im) 1 each N/A NOW STA Stop: 01/24/25 23:49 Last Admin: 01/25/25 01:10 Dose: Not Given Documented By: NELIDA Miscellaneous (Remove Nicoderm Patch) 1 each N/A DAILY@0859 [facility] Stop: 02/24/25 08:58 Last Admin: 01/27/25 08:00 Dose: 1 each Documented By: Admin: 01/26/25 07:34 Dose: 1 each Documented By: Admin: 01/25/25 08:19 Dose: 1 each Documented By: FOSTER Multivitamins (Multivitamin Tab) 1 tab PO QAM [facility] Stop: 02/24/25 08:59 Last Admin: 01/27/25 07:59 Dose: 1 tab Documented By: Admin: 01/26/25 07:34 Dose: 1 tab Documented By: Admin: 01/25/25 07:44 Dose: 1 tab Documented By: OFSTER Nicotine (Nicotine 21 Mg/24 Hr Tdsy) 1 patch TD QAM [facility] Stop: 02/24/25 01:59 Last Admin: 01/27/25 07:59 Dose: 1 patch Documented By: Admin: 01/26/25 07:34 Dose: 1 patch Documented By: Admin: 01/25/25 08:11 Dose: 1 patch Documented By: Admin: 01/25/25 02:23 Dose: 1 patch Documented By: EARLENE Ondansetron HCl (Ondansetron Inj 2 Mg/Ml 2 Ml Vial) 4 mg IV NOW STA Stop: 01/24/25 23:10 Last Admin: 01/24/25 23:20 Dose: 4 mg Documented By: NELIDA Pantoprazole Sodium (Pantoprazole Bolus/Drip) 1 each IV NOW STA Stop: 01/24/25 23:15 Last Admin: 01/25/25 01:10 Dose: Not Given Documented By: NELIDA Pantoprazole Sodium (Pantoprazole 40 Mg Tab) 40 mg PO BID [facility] Stop: 02/24/25 20:59 Last Admin: 01/27/25 07:59 Dose: 40 mg Documented By: Admin: 01/26/25 21:18 Dose: 40 mg Documented By: Admin: 01/26/25 07:33 Dose: 40 mg Documented By: Admin: 01/25/25 20:55 Dose: 40 mg Documented By: EARLENE Phenylephrine HCl (Phenylephrine 100mcg/Ml 5ml Syr) Confirm Administered Dose 100 mcg .ROUTE .STK-MED ONE Stop: 01/25/25 12:23 Last Admin: 01/25/25 13:46 Dose: Not Given Documented By: FSOTER Potassium Chloride (Potassium Chloride Crtab 20 Meq Tabcr) 40 meq PO NOW STA Stop: 01/25/25 00:01 Last Admin: 01/25/25 00:59 Dose: 40 meq Documented By: EJW Potassium Chloride (Potassium Chloride Crtab 20 Meq Tabcr) 40 meq PO NOW STA Stop: 01/25/25 05:00 Last Admin: 01/25/25 05:22 Dose: 40 meq Documented By: EARLENE Propofol (Propofol Iv Emulsion 10 Mg/Ml 20 Ml Vial) Confirm Administered Dose 200 mg IV .STK-MED ONE Stop: 01/25/25 11:47 Last Admin: 01/25/25 13:46 Dose: Not Given Documented By: FOSTER Simethicone (Simethicone 80 Mg Chew) 80 mg PO NOW ONE Stop: 01/26/25 13:21 Last Admin: 01/26/25 14:06 Dose: 80 mg Documented By: FOSTER Thiamine HCl (Thiamine Hcl 100 Mg Tab) 100 mg PO QAM [facility] Stop: 02/25/25 08:59 Last Admin: 01/27/25 07:59 Dose: 100 mg Documented By: Admin: 01/26/25 07:34 Dose: 100 mg Documented By: FOSTER Discharge Plan Visit Data Chief Complaint: GI Assessment Stated Complaint: BLOOD IN VOMIT AND STOOL ED Provider: Pearl Noel Discharge Problem: Acute upper gastrointestinal bleeding, Jaundice Patient Disposition: Admitted As Inpatient Discharge Instructions Interventions: ED Discharge Assessment Last Done: 01/25/25 01:18
--- NOTE | 2025-01-24 23:57 | History & Physical Report ---
Date of Service January 24, 2025 Assessment & Plan (1) Hypotension: Plan: Hypotension Secondary to UGIB/LGIB combo History esophageal varices Coagulopathy from liver disease Rule out C. difficile colitis given recent antibiotic Rx Alcoholic hepatitis, poor prognosis based on computed Maddrey's DF score of 37.9 points. Abdominal distention rule out ascites hyperthyroidism as per records, patient euthyroid, currently not on maintenance medications Hypokalemia secondary to emesis Hyperglycemia rule out DM ongoing tobacco/alcohol abuse. PCU given hypotension IVF Continue IV PPI and octreotide for UGIB Vitamin K for coagulopathy IV ceftriaxone for SBP prophylaxis in a cirrhotic patient presenting with UGIB GI consult re: UGIB, alcoholic hepatitis (ER provider already in touch with Dr. Stanley.) N.p.o. in anticipation of endoscopy in a.m. Follow H&H, transfuse PRBC if hemoglobin less than 7 and or for symptomatic anemia Stool CS, C. difficile Abdominal ultrasound re: abdominal distention rule out ascites SEDA S at risk protocol, DT precautions Careful correction of sodium, hyponatremia workup Replace electrolytes Nicotine patch DVT prophylaxis. SCDs Re: UGIB Full code Text document was generated using WiWide voice recognition software. It may contain grammatical or spelling errors. Kindly contact undersigned for clarification of any documentation item in question. History of Present Illness Chief Complaint: Hematemesis Primary Care Provider: Misael Vail MD History obtained from patient and records. Medical history significant for hypertension, alcoholic liver disease, esophageal varices, celiac disease, hyperthyroidism as per records, ongoing tobacco/alcohol abuse. Last confinement May 2024 for portal hypertensive gastropathy presenting as hematemesis. EGD showed scar in the lower third of esophagus. No residual varices. Portal hypertensive gastropathy. Normal duodenum. Patient discharged with PPI Rx. 2 weeks ago, patient had painless hematuria symptoms associated with fatigue symptoms. Some difficulty in urination. No outpatient urine CS done. Patient prescribed outpatient Bactrim course which relieved symptoms. Patient had episode of hematemesis/coffee-ground emesis associated with passage of dark blood clots per rectum. Abdomen distended more than usual although not painful as per patient. Denies chest pain, SOB. Denies OTC NSAID intake. Drank some alcohol today after being off for a number of weeks. Patient directed to ER for evaluation. SBP 80s upon arrival at the ER. IV Protonix, octreotide infusion, ceftriaxone administered at the ER. Medical History as above 2019 EGD showed nonbleeding esophageal varices, flattened mucosa duodenum consistent with celiac disease. 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 Allergies Allergy/AdvReac Type Severity Reaction Status Date / Time gluten Allergy Unknown Hives Verified 01/24/25 23:50 prednisone AdvReac Intermediate Nausea,vomiting Verified 01/24/25 23:50 and diarrhea Home Medications Medication Instructions Recorded Confirmed Type cholecalciferol (vitamin D3) 125 125 mcg PO QAM 01/24/25 01/24/25 History mcg (5,000 unit) tablet (Vitamin D3) pantoprazole 40 mg tablet,delayed 40 mg PO QDD 01/24/25 01/24/25 History release Past Med/Surg History Problem List (Updated 01/25/25 @ 09:40 by MELISSA Ortiz) Hematemesis Alcohol use Encounter for pre-operative examination Hypotension Acute upper gastrointestinal bleeding (Acute) Hyperbilirubinemia (Acute) Abnormal urinalysis (Acute) Lactic acidosis (Acute) Transaminitis (Acute) Jaundice (Acute) Medical History Portal hypertensive gastropathy Syncope Alcoholic hepatitis Hyperbilirubinemia Prolonged QT interval Alcoholism, chronic Hypomagnesemia Hypokalemia Acute upper gastrointestinal bleeding Hyponatremia Celiac disease Tobacco use Surgical History H/O eye surgery Family History Other Prostate cancer Stroke Social History Smoking Status: Current every day smoker Tobacco Type: Cigarettes Cigarettes Per Day: 1 pk; Second Hand Exposure: Yes; Do You Dip or Chew Tobacco: No; Tobacco Cessation Education Requested by Patient: No Hx Alcohol Use: Yes Alcohol type: hard liquor Alcohol type Comment: h/o heavy vodka intake, stopped drinking 3 weeks ago Hx Substance Use: No Preferred Language: Maldivian Communication Ability: Effective 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 Beliefs That Will Affect Care: None marital status: Single Current Living Situation: Spouse Current Living Situation Comment: Tien Nuñez current occupational status: unemployed Other Information That Helps Us Care for You: No Feels Safe at Home: Yes Safety Concerns: Feels Safe At This Time Assistive Devices: Glasses Review of Systems Review of Systems: As per HPI, all other systems reviewed and negative Physical Exam Physical Exam: GENERAL: Slightly anxious, no respiratory distress SKIN: Pallor, warm HEENT: Bespectacled, pale palpebral conjunctivae, no ptosis, dry buccal mucosa NECK : Supple, no tenderness CHEST : Decreased breath sounds, no tenderness HEART : Tachycardic, no obvious murmurs ABDOMEN: Some distention, nontender EXTREMITIES : No LE swelling/tenderness, no other conspicuous deformities noted NEUROLOGIC : Coherent, no facial asymmetry, no other gross focality Results & Data Results & Data Vital Signs (Past 12 Hours) Vital Signs Temp Pulse Resp BP Pulse Ox O2 Del Method 01/24/25 23:30 94 H 22 105/67 01/24/25 23:15 106 H 16 101/59 L 97 01/24/25 23:11 115 H 17 95 Room Air 01/24/25 23:03 105 H 15 91/65 L 95 01/24/25 22:15 119 H 01/24/25 22:01 36.7 C 118 H 16 84/61 L 98 Room Air Laboratory Results Laboratory Results WBC 13.87 K/ul (4.8-10.8) H 01/24/25 22:15 RBC 3.08 M/uL (4.20-5.40) L 01/24/25 22:15 Hgb 11.9 g/dl (12.0-16.0) L 01/24/25 22:15 Hct 32.2 % (37.0-47.0) L 01/24/25 22:15 MCV 104.5 fL (80.0-100.0) H 01/24/25 22:15 MCH 38.6 pg (25.0-34.0) H 01/24/25 22:15 MCHC 37.0 g/dL (32.0-36.0) H 01/24/25 22:15 RDW Std Deviation 65.3 fL (36.4-46.3) H 01/24/25 22:15 RDW Coeff of Car 17.2 % (11.5-14.5) H 01/24/25 22:15 Plt Count 176 K/uL (130-400) 01/24/25 22:15 MPV 12.5 fL (9.4-12.4) H 01/24/25 22:15 Immature Gran % (Auto) 1.1 % 01/24/25 22:15 Neut % (Auto) 69.3 % 01/24/25 22:15 Lymph % (Auto) 17.7 % 01/24/25 22:15 Clinton % (Auto) 10.9 % 01/24/25 22:15 Eos % (Auto) 0.5 % 01/24/25 22:15 Baso % (Auto) 0.5 % 01/24/25 22:15 Neut # (Auto) 9.62 K/uL (1.40-6.50) H 01/24/25 22:15 Lymph # (Auto) 2.45 K/uL (1.20-3.40) 01/24/25 22:15 Clinton # (Auto) 1.51 K/uL (0.11-0.59) H 01/24/25 22:15 Eos # (Auto) 0.07 K/uL (0.00-0.50) 01/24/25 22:15 Baso # (Auto) 0.07 K/uL (0.00-0.20) 01/24/25 22:15 Immature Gran # (Auto) 0.15 K/uL (0.01-0.20) 01/24/25 22:15 Absolute Nucleated RBC 0.06 K/uL (0.00-0.12) 01/24/25 22:15 Nucleated RBC % (auto) 0.4 % 01/24/25 22:15 PT 18.8 Seconds (9.0-12.0) H 01/24/25 22:15 INR 1.8 (0.9-1.1) H 01/24/25 22:15 Sodium 126 mmol/L (136-145) L 01/24/25 22:15 Potassium 3.1 mmol/L (3.5-5.1) L 01/24/25 22:15 Chloride 91 mmol/L (98-107) L 01/24/25 22:15 Carbon Dioxide 24 mmol/L (21-32) 01/24/25 22:15 Anion Gap 11 (3-11) 01/24/25 22:15 BUN 11 mg/dl (6-23) 01/24/25 22:15 Creatinine 0.62 mg/dl (0.6-1.2) 01/24/25 22:15 Est Cr Clr Drug Dosing 93.8 ml/min 01/24/25 22:15 eGFR 101.89 01/24/25 22:15 BUN/Creatinine Ratio 17.7 (10-20) 01/24/25 22:15 Glucose 123 mg/dl (70-99(Fasting)) H 01/24/25 22:15 Calcium 9.0 mg/dl (8.6-10.3) 01/24/25 22:15 Total Bilirubin 6.6 mg/dl (0.2-1.0) H 01/24/25 22:15 AST 85 U/L (13-39) H 01/24/25 22:15 ALT 36 U/L (7-52) 01/24/25 22:15 Alkaline Phosphatase 186 U/L (34-104) H 01/24/25 22:15 Total Protein 7.3 gm/dl (6.0-8.3) 01/24/25 22:15 Albumin 3.9 gm/dl (3.4-5.0) 01/24/25 22:15 Globulin 3.4 gm/dl (2.5-4.0) 01/24/25 22:15 Albumin/Globulin Ratio 1.1 (0.9-2) 01/24/25 22:15 Crossmatch See Detail 01/24/25 23:17 Diagnostic Findings EKG as per my interpretation :Rate 115, sinus tachycardia, normal axis, no ischemia Code Status & VTE Plan VTE Prophylaxis Plan VTE Prophylaxis will be ordered: Yes
[2025-01-25] MEDS ORDERED: PROMETHAZINE 6.25 MG/50.25 ML BAG IV PRN (00:05)
[2025-01-25] MEDS: FOLIC ACID 1 MG in SYRINGE 9.8 ML IV STA (00:12)
[2025-01-25] MEDS: PHYTONADIONE 10 MG in DEXTROSE 5% 50 ML IV ONE (00:15)
[2025-01-25] MEDS: OCTREOTIDE ACETATE 500 MCG in SODIUM CHLORIDE 0.9% 100 ML IV SCH (00:57)
[2025-01-25] MEDS: cefTRIAXone SODIUM 2,000 MG/50 ML BAG IV STA (00:58)
[2025-01-25] MEDS: POTASSIUM CHLORIDE CRTAB 20 MEQ TABCR PO STA ×2 (00:59→05:22)
[2025-01-25] MEDS: THIAMINE HCL 100 MG in SYRINGE 9 ML IV STA (01:04)
[2025-01-25] MEDS: PANTOPRAZOLE BOLUS/DRIP IV STA (01:10)
[2025-01-25] MEDS: STAT IV/IM STA (01:10)
[2025-01-25] MEDS: PROMETHAZINE 6.25 MG/50.25 ML BAG IV STA (01:12)
[2025-01-25] MEDS: OCTREOTIDE ACETATE 50 MCG in SYRINGE 9.5 ML IV STA (01:18)
[2025-01-25] MEDS ORDERED: LORazepam 2 MG/1 ML VIAL IV PRN (01:22)
[2025-01-25 01:35] LABS: Magnesium 1.1 mg/dl (1.7-2.4)
[2025-01-25 01:50] LABS: Thyroid Stimulating Hormone 2.541 uIu/ml (0.300-4.500)
--- OUTSIDE RECORDS SUMMARY | 2025-01-25 01:59 | External Medical Summary | Summary of Care ---
Author Name Unknown Organization [facility] Address [address] [facility] [place] [address] Phone [phone] Care Team Providers Care Data Center Project Manager Name Role Phone Misael Vail MD Primary Care Provider [phone] Encounter Details Date Type Department Care Team (Late st Contact Info) Description 01/20/2025 Orders Only PATIENT PORTAL DO NOT DELETE THIS DEPT USED BY [place] [id number] Allergies Active Allergy Reactions Criticality Noted Date Comments Gluten Abdominal pain 07/03/2014 Gas, bloating Prednisone Diarrhea,Nausea/vomiting 07/08/2019 documented as of this encounter (statuses as of 01/20/2025) Medications pyridOXINE (VITAMIN B-6) 100 MG Tablet 1 Tablet. 9 Active Vitamin D3 125 MCG (5000 UT) Oral Capsule Take 1 Capsule by mouth in the morning. Active Zinc 25 MG Oral Tablet Take by mouth daily. Active Black [place] Pollen 1:20 Subcutaneous Solution Inject under the skin. Active Vitamin B-12 500 MCG Sublingual Tablet Sublingual (Vitamin B-12)Indications :as needed Place 1 Tablet under the tongue in the morning. Active Calcium Lactate 100 MG Oral Tablet Take by mouth. Activ e Potassium Bicarbonate 99 MG Oral Capsule Take by mouth. Twice weekly Active Oil of Oregano 1500 MG Oral Capsule Take by mouth. Activ e Carvedilol 6.25 MG Oral Tablet (Coreg) Take 1 Tablet by mouth 2 times a day with morning and evening meals. 30 Tablet 1 08/26/2024 9:11 AM EDT Active Additional Information Patient not taking.Reported on 01/16/2025 Pantoprazole Sodium 40 MG Oral Tablet Delayed Release (Protonix) Take 1 Tablet by mouth in the morning. 180 Tablet 1 09/09/2024 3:29 PM EDT 4 Active Benzonatate 100 MG Oral Capsule Take 1 Capsule by mouth 3 times a day as needed for Cough. 30 Capsule 1 01/04/2025 9:07 AM EST 5 Active Sulfamethoxazole -Trimethoprim 800-160 MG Oral Tablet (Bactrim DS) Take 1 Tablet by mouth in the morning and 1 Tablet before bedtime. Do all this for 5 days. Until gone. 10 Tablet 01/16/2025 3:46 PM EST 5 01/22/20 Active documented as of this encounter (statuses as of 01/20/2025) Active Problems Problem Noted Date Diagnosed Date Osteopenia of neck of left femur 09/09/2024 Vaginal dryness, menopausal 09/09/2024 HTN, goal below 130/80 04/26/2024 Fatty liver 03/01/2024 Alcoholism, chronic 01/22/2024 Gastroesophageal reflux dise ase with esophagitis without hemorrhage 01/21/2024 Esophageal varices determined by endoscopy 09/09 Celiac disease 06/02/2019 Tobacco use disorder 12/25/2015 documented as of this encounter (statuses as of 01/20/2025) Resolved Problems Problem Noted Date Diagnosed Date Resolved Date Acute left-sided low back pa in with left-sided sciatica 01/04/2025 01/16/2025 Fall on ice 01/04/2025 01/16/2025 Concussion with no loss of consciousness 01/04/2025 01/16/2025 History of acute hepatitis 09/09/2019 0 01/21/2024 History of ETOH abuse 07/10/20192023 Deviated nasal septum 05/25/20192023 Recurrent sinus infections 05/25/2019 0 01/21/2024 Mixed rhinitis 12/25/2015 01/21/2024 documented as of this encounter (statuses as of 01/20/2025) Immunizations Name Administration Dates Next Due Diptheria/Tetanus (Adult) 11/19/2006 HEP A - Hepatitis A (Adult > 18 yrs) 09/09/2019 Hepatitis B, 20+ yrs 11/28/2019,09/09/2019 TD, Preservative Free 11/19/2006 documented as of this encounter Social History Tobacco Use Types Packs/Day Years Used Date Smoking Tobacco: Every Day Cigarettes 0.7 35 Smokeless Tobacco: Never Comments:15 to 18 cigarettes a day/ no passive smoke Rolls her own cigarettes Alcohol Use Standard Drinks/Week Comments Yes 0 (1 standard drink = 0.6 oz pure alcohol) none except sips since 07/2019, increased till 12/2023 none since PHQ-2 Answer Date Recorded PHQ Adult Total Score 0 01/16/2025 Hunger Vital Sign Answer Date Recorded Worried About Running Out of Food in the Last Ye ar Never true 07/08/2019 Ran Out of Food in the Last Year Never true 07/08/2019 Comments No Sex and Gender Information Value Date Recorded Sex Assigned at Not on file Legal Sex Female 6:04 AM EST Gender Identity Not on file Sexual Orientation Not on file documented as of this encounter Plan of Treatment Scheduled Procedures Name Priority Associated Diagnoses Date/Ti me ESOPHAGOGASTRODUODENOSCOPY ( EGD), FLEXIBLE, TRANSORAL, DIAGNOSTIC Recall Esophageal varices (HCC) COLONOSCOPY FLEXIBLE PROXIMAL DIAGNOSTIC Recall Alcoholic hepatitis, unspecified whether ascites present ESOPHAGOGASTRODUODENOSCOPY ( EGD), FLEXIBLE, TRANSORAL, DIAGNOSTIC Recall Alcoholic hepatitis, unspecified whether ascites present Health Maintenance Due Date Last Done Comments Albumin/Creatinine Ratio 1982 Pneumococcal Vaccine: 50+ Years (1 of 2 - PCV) 1983 HPV/Co-Test 1994 Mammogram 2004 DTap/Tdap Vaccines (1 - Tdap) 11/20/2006 11/19/2006, 11/19/2006 Cologuard 2009 Colonoscopy 2009 Colorectal Cancer Screening 2009 Fecal Occult Blood Test 2009 Sigmoidoscopy 2009 Lung Cancer Screening 2014 Zoster Vaccines (1 of 2) 2014 Cervical Cancer Screening 2016 Pap Smear 2016 2013 Lipid Panel 12/16/2020 12/16/2015 Influenza Vaccine (FLU shot) (#1) 2024 GFR 02/15/2025 02/16/2024, 06/2024, 05/28/2020, Additional history exists Depression Screening 01/16/2026 01/16/2025 Hepatitis C Screening Completed 06/24/2019 Hepatitis B Vaccine Discontinued 11/28/2019, 9 COVID-19 Vaccine Discontinued HIV Screening Discontinued HPV (Gardasil) Vaccine Aged Out No lo nger eligible based on patient's age to complete this topic MENINGOCOCCAL (MENACTRA/MENVEO) Aged Out No longer eligible based on patient's age to complete this topic Meningitis B Vaccine (Bexsero/Trumemba) Aged Out No longer eligible based on patient's age to complete this topic documented as of this encounter Medical Devices Implanted Type Area Mathematics Department Chair Device Identifier Shelf Expiration Date Model / Serial / Lot Lens Intraoc 24.0 - [id number] - [id number] Implanted:Qty: 1 on 02/26/2021 by Manuel Azevedo MD at OR [facility] Right: Eye [employer] 04/15/2024 [id number] / [id number] / [id number] Lens Intraoc 23.5 - [id number] - [id number] Implanted:Qty: 1 on 03/12/2021 by Manuel Azevedo MD at OR [facility] Left: Eye [employer] 09/15/2025 [id number] / [id number] / [id number] documented as of this encounter Care Teams Data Center Project Manager Relationship Specialty Start Date End Date Misael Vail MD [address] [facility] [place] [id number] PCP - General Family Medicine 06/01/24 documented as of this encounter
--- OUTSIDE RECORDS SUMMARY | 2025-01-25 01:59 | External Medical Summary | Summary of Care ---
Author Name Unknown Organization [facility] Address [address] [place] [address] Phone [phone] Care Team Providers Care Iron Bender Name Role Phone Misael Vail MD Primary Care Provider [phone] Reason for Visit * Reason Comments Urinary Tract Infection Symptoms Pt repo rts that she is not voiding much and when she does she is having blood in the urine for the last 4 days. Pt has been taking cranberry tables, allison seel. (Pt not able to give a urine sample at this time) Encounter Details Date Type Department Care Team (Late st Contact Info) Description 01/16/2025 2:40 PM EST Office Visit Family Practice [facility] [address] [facility] [place] [id number] Aj De Luna MD [address] [facility] [place] [address] Hematuria, unspecified type*; Dysuria; Screening for depression Allergies Active Allergy Reactions Criticality Noted Date Comments Gluten Abdominal pain 07/03/2014 Gas, bloating Prednisone Diarrhea,Nausea/vomiting 07/08/2019 documented as of this encounter (statuses as of 01/16/2025) Medications pyridOXINE (VITAMIN B-6) 100 MG Tablet 1 Tablet. 06/28/20 19 Active Vitamin D3 125 MCG (5000 UT) Oral Capsule Take 1 Capsule by mouth in the morning. Active Zinc 25 MG Oral Tablet Take by mouth daily. Active Black [place] Pollen 1:20 Subcutaneous Solution Inject under the [...] 30 Tablet 1 08/26/2024 9:11 AM EDT 08/26/20 24 Active Additional Information Patient not taking.Reported on 01/16/2025 Pantoprazole Sodium 40 MG Oral Tablet Delayed Release (Protonix) Take 1 Tablet by mouth in the morning. 180 Tablet 1 09/09/2024 3:29 PM EDT 09/09/20 24 Active Benzonatate 100 MG Oral Capsule Take 1 Capsule by mouth 3 times a day as needed for Cough. 30 Capsule 1 01/04/2025 9:07 AM EST 11/23/19 25 Active Sulfamethoxazole -Trimethoprim 800-160 MG Oral Tablet (Bactrim DS) Take 1 Tablet by mouth in the morning and 1 Tablet before bedtime. Do all this for 5 days. Until gone. 10 Tablet 01/16/2025 3:46 PM EST 01/17/20 25 025 Active methylPREDNISolo ne 4 MG Oral Tablet Therapy Pack (Medrol Dosepack) follow package directions 21 Tablet 01/04/2025 10:01 AM EST 01/04/20 25 025 Discontin ued(Medic ation List Clean Up) Cyclobenzaprine HCl 5 MG Oral Tablet (Flexeril) Take 1 Tablet by mouth in the morning and 1 Tablet before bedtime. 30 Tablet 01/04/2025 9:59 AM EST 01/04/20 25 025 Discontin ued(Medic ation List Clean Up) documented as of this encounter (statuses as of 01/16/2025) Active Problems Problem Noted Date Diagnosed Date Osteopenia of neck of left femur 09/09/2024 Vaginal dryness, menopausal 09/09/2024 HTN, goal below 130/80 04/26/2024 Fatty liver 03/01/2024 Alcoholism, chronic 01/22/2024 Gastroesophageal reflux dise ase with esophagitis without hemorrhage 01/21/2024 Esophageal varices determined by endoscopy 09/09 Celiac disease 06/02/2019 Tobacco use disorder 12/25/2015 documented as of this encounter (statuses as of 01/16/2025) Resolved Problems Problem Noted Date Diagnosed Date [...] as of this encounter (statuses as of 01/16/2025) Immunizations Name Administration Dates Next Due Diptheria/Tetanus (Adult) 11/19/2006 HEP A - Hepatitis A (Adult > 18 yrs) 09/09/2019 Hepatitis B, 20+ yrs 11/28/2019,09/09/2019 TD, Preservative Free 11/19/2006 documented as of this encounter Social History Tobacco Use Types Packs/Day Years Used Date Smoking Tobacco: Every Day Cigarettes 0.7 35 Smokeless Tobacco: Never Tobacco Cessation:Ready to Q uit: Not Asked; Counseling Given: Not Answered Comments:15 to 18 cigarettes a day/ no [...] Sign Reading Time Taken Comments Blood Pressure 119/71 01/16/2025 2:35 PM EST Pulse 93 01/16/2025 2:35 PM EST Temperature 36.2 C (97.1 F) 01/16/2025 2:35 PM ES T Respiratory Rate 16 01/16/2025 2:35 PM EST Oxygen Saturation 92% 01/16/2025 2:35 PM EST Inhaled Oxygen Concentration - - Weight 67.8 kg (149 lb 6.4 oz) 01/16/2025 2:35 P M EST Height 172.7 cm (5' 8") 01/16/2025 2:35 PM EST Body Mass Index 22.72 01/16/2025 2:35 PM EST documented in this encounter Progress Notes * Aj De Luna MD - 01/16/2025 3:13 PM EST Images from the original note were not included. History of Present Illness Sheyla Melton is a 59 year old female that presents for Urinary Tract Infection Symptoms (Pt reports that she is not voiding much and when she does she is having blood in the urine for the last 4days. Pt has been taking cranberry tables, allison seel. (Pt not able to give a urine sample at thistime)) Patient has been having painless hematuria for the past few. She has a long hx of UTIs with which she has not had pain. No burning. She has had no fever but feels quite fatigued and out of energy. She has a hard time peeing. She has being having normal Bms. She has been having to lie down in the tub in order to urinate (hot water makes her able to relex and empty the bladder). Physical Exam BP 119/71 (BP Site: Left Arm, BP Position: Sitting, BP Cuff Size: Regular) | Pulse 93 | Temp 97.1 F (36.2 C) (Tympanic) | Resp 16 | Ht 5' 8" (1.727 m) | Wt 149 lb 6.4 oz (67.8 kg) | SpO2 92% | BMI 22.72 kg/m | BSA 1.8 m NAD Non ill appearing AAOx3 NCAT/ Abd soft, nt/nd +BS Neg CVAT Negative pain with pressure over bladder I have reviewed most recent labs None Assessment and Plan Hematuria, unspecified type - new - URINALYSIS WITH MICROSCOPIC EXAM; Future Dysuria - new. Unable to give sample today. Will treat empirically. - URINALYSIS WITH MICROSCOPIC EXAM; Future Screening for depression done - DEPRESSION SCREENING PERFORMED Wrap-Up If patient no better with meds will need to give urine specimen for analysis and culture (order written) and consider imaging. Time: I spent a total of 20-29 minutes (exact time 25 mins) on the date of service in preparation, delivery, and documentation of the care provided to Sheyla Melton excluding any time spent in the performance of separately billed services. documented in this encounter Plan of Treatment Scheduled Orders Name Type Priority Associated Diagnoses Orde r Schedule URINALYSIS WITH MICROSCOPIC EXAM Lab Routine Hematuria, unspecified type Dysuria Expected: 01/16/2025 (Approximate), Expires: 01/16/2026 Scheduled Procedures Name Priority Associated Diagnoses Date/Ti me ESOPHAGOGASTRODUODENOSCOPY ( EGD), FLEXIBLE, TRANSORAL, DIAGNOSTIC Recall Esophageal varices (HCC) COLONOSCOPY FLEXIBLE PROXIMAL DIAGNOSTIC Recall Alcoholic hepatitis, unspecified whether ascites present ESOPHAGOGASTRODUODENOSCOPY ( EGD), FLEXIBLE, TRANSORAL, DIAGNOSTIC Recall Alcoholic hepatitis, unspecified whether ascites present Health Maintenance Due Date Last Done Comments HPV/Co-Test 1994 Cologuard 2009 Colonoscopy 2009 Fecal Occult Blood Test 2009 Sigmoidoscopy 2009 Pap Smear 2016 2013 Influenza Vaccine (FLU shot) (#1) 2024 Albumin/Creatinine Ratio 01/17/2025 Pos tponed from 1982 (Acute Illness) Cervical Cancer Screening 01/17/2025 Po stponed from 2016 (Acute Illness) Colorectal Cancer Screening 01/17/2025 Postponed from 2009 (Acute Illness) DTap/Tdap Vaccines (1 - Tdap) 01/17/2025 11/19/2006, 11/19/2006 Postponed from 11/20/2006 (Acute Illness) Lipid Panel 01/17/2025 12/16/2015 Postponed from 12/16/2020 (Acute Illness) Lung Cancer Screening 01/17/2025 Postpo courtney from 2014 (Acute Illness) Mammogram 01/17/2025 Postponed from 2004 (Acute Illness) Pneumococcal Vaccine: 50+ Years (1 of 2 - PCV) 01/17/2025 Postponed from 1983 (Acute Illness) Zoster Vaccines (1 of 2) 01/17/2025 Pos tponed from 2014 (Acute Illness) GFR 02/15/2025 02/16/2024, 06/2024, 05/28/2020, Additional history [...] this encounter Medical Devices Implanted Type Area Axle Polisher Device Identifier Shelf Expiration Date Model / Serial / Lot Lens Intraoc 24.0 - [id number] - [id number] Implanted:Qty: 1 on 02/26/2021 by Manuel Azevedo MD at OR [facility] Right: Eye [employer] 04/15/2024 [id number] / [id number] / [id number] Lens Intraoc 23.5 - [id number] - [id number] Implanted:Qty: 1 on 03/12/2021 by Manuel Azevedo MD at OR [facility] Left: Eye [employer]OM[employer] 09/15/2025 [id number] / [id number] / [id number] documented as of this encounter Visit Diagnoses Diagnosis Hematuria, unspecified type- Primary Dysuria Screening for depression documented in this encounter Care Teams Iron Bender Relationship Specialty Start Date End Date Misael Vail MD [address] [place] [id number] PCP - General Family Medicine 06/01/24 documented as of this encounter
--- OUTSIDE RECORDS SUMMARY | 2025-01-25 02:00 | External Medical Summary | Summary of Care ---
Author Name Unknown Organization [facility] Address [address] [place] [address] Phone [phone] Care Team Providers Care Branch Mechanic Name Role Phone Misael Vail MD Primary Care Provider [phone] Reason for Visit * Reason Onset Date Comments Advice 09/06/2024 Encounter Details Date Type Department Care Team (Late st Contact Info) Description 09/06/[address] [facility] [address] [place] [address] Misael Vail MD [address] [place] [id number] Advice Allergies Active Allergy Reactions Criticality Noted Date Comments Gluten Abdominal pain 07/03/2014 Gas, bloating Prednisone Diarrhea,Nausea/vomiting 07/08/2019 documented as of this encounter (statuses as of 12/06/2024) Medications pyridOXINE (VITAMIN B-6) 100 MG Tablet 1 Tablet. 9 Active Vitamin D3 125 MCG (5000 UT) Oral Capsule Take 1 Capsule by mouth in the morning. Active Zinc 25 MG Oral Tablet Take by mouth daily. Active Black [place] Pollen 1:20 Subcutaneous Solution Inject under the [...] Active Additional Information Patient not taking.Reported on 11/23/2024 documented as of this encounter (statuses as of 12/06/2024) Active Problems Problem Noted Date Diagnosed Date Osteopenia of neck of left femur 09/09/2024 Vaginal dryness, menopausal 09/09/2024 HTN, goal below 130/80 04/26/2024 Fatty liver 03/01/2024 Alcoholism, chronic 01/22/2024 Gastroesophageal reflux dise ase with esophagitis without hemorrhage 01/21/2024 Esophageal varices determined by endoscopy 09/09 Celiac disease 06/02/2019 Tobacco use disorder 12/25/2015 documented as of this encounter (statuses as of 12/06/2024) Resolved Problems Problem Noted Date Diagnosed Date Resolved Date History of acute hepatitis 09/09/2019 0 01/21/2024 History of ETOH abuse 07/10/20192023 Deviated nasal septum 05/25/20192023 Recurrent sinus infections 05/25/2019 0 01/21/2024 Mixed rhinitis 12/25/2015 01/21/2024 documented as of this encounter (statuses as of 12/06/2024) Immunizations Name Administration Dates Next Due Diptheria/Tetanus [...] years and over) Not on file 05/03/2024 Comments No Sex and Gender Information Value Date Recorded Sex Assigned at Not on file Legal Sex Female 6:04 AM EST Gender Identity Not on file Sexual Orientation Not on file documented as of this encounter Miscellaneous Notes * Telephone Encounter - Prachi Weeks LPN - 09/09/2024 1:28 PM EDT Has appt today to address * Telephone Encounter - Laura Watkins OSA - 09/06/2024 5:46 PM EDT No Appointments Available Patient declined appointments?: No What Visit Type is needed? Return If Acute Visit Type is needed, were surrounding clinics offered to patient (Yes/No)? Yes Was patient offered appointments with other available providers (Yes/No)? Yes See Call Details? (Yes or No): No Pt needing medication refill documented in this encounter Plan of Treatment Upcoming Encounters Date Type Department Care Team (Late st Contact Info) Description 12/19/2024 8:00 AM EST Imaging Radiology [facility] [address] [place] [phone] Scheduled Procedures Name Priority Associated Diagnoses Date/Ti me ESOPHAGOGASTRODUODENOSCOPY ( EGD), FLEXIBLE, TRANSORAL, DIAGNOSTIC Recall Esophageal varices (HCC) COLONOSCOPY FLEXIBLE PROXIMAL DIAGNOSTIC Recall Alcoholic hepatitis, unspecified whether ascites present ESOPHAGOGASTRODUODENOSCOPY ( EGD), FLEXIBLE, TRANSORAL, DIAGNOSTIC Recall Alcoholic hepatitis, unspecified whether ascites present Health Maintenance Due Date Last Done Comments HIV Screening 1979 Albumin/Creatinine Ratio 1982 Pneumococcal Vaccine: 50+ Years [...] Panel 12/16/2020 12/16/2015 COVID-19 Vaccine ( - season) 2024 Influenza Vaccine (FLU shot) (#1) 2024 GFR 02/15/2025 02/16/2024, 03/06/2024, 05/28/2020, Additional history exists Hepatitis C Screening Completed 06/24/2019 HPV (Gardasil) Vaccine Aged Out No lo nger eligible based on patient's age to complete this topic MENINGOCOCCAL (MENACTRA/MENVEO) Aged Out No longer eligible based on patient's age to complete this topic documented as of this encounter Medical Devices Implanted Type Area Break Off Worker Device Identifier Shelf Expiration Date Model / Serial / Lot Lens Intraoc 24.0 - [id number] - [id number] Implanted:Qty: 1 on 02/26/2021 by Manuel Azevedo MD at OR [facility] Right: Eye [employer] 04/15/2024 [id number] / [id number] / [id number] Lens Intraoc 23.5 - [id number] - [id number] Implanted:Qty: 1 on 03/12/2021 by Manuel Azevedo MD at OR [facility] Left: Eye [employer] 09/15/2025 [id number] / [id number] / [id number] documented as of this encounter Care Teams Branch Mechanic Relationship Specialty Start Date End Date Misael Vail MD [address] [place] [address] PCP - General Family Medicine 06/01/24 documented as of this encounter
--- OUTSIDE RECORDS SUMMARY | 2025-01-25 02:00 | External Medical Summary | Summary of Care ---
Author Name Unknown Organization [facility] Address [address] [facility] [place] [address] Phone [phone] Care Team Providers Care Pump Room Operator Name Role Phone Misael Vail MD Primary Care Provider [phone] Reason for Visit * Reason Comments Follow Up Pt reports that she feels good. No symptoms Encounter Details Date Type Department Care Team (Late st Contact Info) Description 08/26/2024 8:40 AM EDT Office Visit Hepatology, [facility] [address] [facility] [place] [address] Jalyn Gallego MD [address] [place] [address] [place] [id number] Other cirrhosis of liver (HCC)* Allergies Active Allergy Reactions Criticality Noted Date Comments Gluten Abdominal pain 07/03/2014 Gas, bloating Prednisone Diarrhea,Nausea/vomiting 07/08/2019 documented as of this encounter (statuses as of 08/26/2024) Medications Medication Sig Dispensed Refills Start Date End Date Status pyridOXINE (VITAMIN B-6) 100 MG Tablet 1 Tablet. 06/28/2019 Active Vitamin D3 125 MCG (5000 UT) Oral Capsule Take 1 Capsule by mouth in the morning. Active Zinc 25 MG Oral Tablet Take by mouth daily. Active Black [place] Pollen 1:20 Subcutaneous Solution Inject under the skin. Active Vitamin B-12 500 MCG Sublingual Tablet Sublingual (Vitamin B-12)Indications:a s needed Place 1 Tablet under the tongue in the morning. Active Calcium Lactate 100 MG Oral Tablet Take by mouth. Active Potassium Bicarbonate 99 MG Oral Capsule Take by mouth. Twice weekly Active Oil of Oregano 1500 MG Oral Capsule Take by mouth. Active Carvedilol 6.25 MG Oral Tablet (Coreg) Take 1 Tablet by mouth 2 times a day with morning and evening meals. 30 Tablet 1 08/26/2024 Active Pantoprazole Sodium 40 MG Oral Tablet Delayed Release (Protonix) Take 1 Tablet by mouth in the morning. 180 Tablet 3 08/26/2024 Active Pantoprazole Sodium 40 MG Oral Tablet Delayed Release (Protonix) Take 1 Tablet by mouth in the morning. 180 Tablet 3 06/15/2024 08/26/2024 Discontinued (Refill) documented as of this encounter (statuses as of 08/26/2024) Active Problems Problem Noted Date Diagnosed Date HTN, goal below 130/80 04/26/2024 Fatty liver 03/01/2024 Alcoholism, chronic 01/22/2024 Gastroesophageal reflux dise ase with esophagitis without hemorrhage 01/21/2024 Esophageal varices determined by endoscopy 09/09 Celiac disease 06/02/2019 Tobacco use disorder 12/25/2015 documented as of this encounter (statuses as of 08/26/2024) Resolved Problems Problem Noted Date Diagnosed Date Resolved Date History of acute hepatitis 09/09/2019 0 01/21/2024 History of ETOH abuse 07/10/20192023 Deviated nasal septum 05/25/20192023 Recurrent sinus infections 05/25/2019 0 01/21/2024 Mixed rhinitis 12/25/2015 01/21/2024 documented as of this encounter (statuses as of 08/26/2024) Immunizations Name Administration Dates Next Due Diptheria/Tetanus [...] Sign Reading Time Taken Comments Blood Pressure 136/75 08/26/2024 8:51 AM EDT Pulse 80 08/26/2024 8:51 AM EDT Temperature - - Respiratory Rate - - Oxygen Saturation - - Inhaled Oxygen Concentration - - Weight 63.7 kg (140 lb 8 oz) 08/26/2024 8:51 AM EDT Height - - Body Mass Index 21.36 06/15/2024 10:43 AM EDT documented in this encounter Progress Notes * Jalyn Gallego MD - 08/26/2024 8:52 AM EDT Hepatology [facility]: cirrhosis fup Last visit in 03/09 HPI: 59 yo fm with a history of cirrhosis now confirmed on imaging since last time. She had been hospitalized in 01/09 with fatty liver and an overt variceal bleed banded at that time. Saw me in clinic in 03/09, fup imaging ordered at that visit then confirmed a diagnosis of cirrhosis. Had an egd in 06/08 for surveillance of varices - residual scar noted but no varices. Doing well otherwise since her last visit. Presumed etiology is alcohol to her liver condition. No issues with er visits or hospitalizations since last visit. No confusion, no swelling in the belly or legs, no further bleeding. Feels energy level is okay. Mood is okay. PMhx: Cirrhosis Current Outpatient Medications Medication Sig Dispense Refill pyridOXINE (VITAMIN B-6) 100 MG Tablet 1 Tablet. Vitamin D3 125 MCG (5000 UT) Oral Capsule Take 1 Capsule by mouth in the morning. Zinc 25 MG Oral Tablet Take by mouth daily. Black [place] Pollen 1:20 Subcutaneous Solution Inject under the skin. Calcium Lactate 100 MG Oral Tablet Take by mouth. Potassium Bicarbonate 99 MG Oral Capsule Take by mouth. Twice weekly Oil of Oregano 1500 MG Oral Capsule Take by mouth. Pantoprazole Sodium 40 MG Oral Tablet Delayed Release (Protonix) Take 1 Tablet by mouth in the morning. 180 Tablet 3 Vitamin B-12 500 MCG Sublingual Tablet Sublingual (Vitamin B-12) Place 1 Tablet under the tongue inthe morning. (Patient not taking: Reported on 08/26/2024) No current facility-administered medications for this visit. All: gluten, prednisone Soc hx: Taking care of a lot of family members Lives with her ROS: Constitutional: No report of fever, chills, night sweats. There have been no non-intentional weightchanges. GI: Per HPI, otherwise negative. Physical Exam Constitutional: BP 136/75 | Pulse 80 | Wt 63.7 kg (140 lb 8 oz) | BMI 21.36 kg/m | BSA 1.75 m Gen: well nourished fm in nad, thin female in nad, wearing a heated jacket HEENT: perrla CV: Heart is regular without murmur, rub or rosa. Pulm: Clear to percussion and auscultation. GI: Abdomen is soft, non-tender, no ascites noted Last meld from 03/09 INR 1.3 Cr 0.6 Na 135 TB 1.4 Kavon meld 10 K 4.2 CBC normal platelets Imaging: MRI liver 06/08- images personally reviewed and agree with report A/P: Cirrhisos - meld labs due now Egd done in 06/08 for variceal surveillance, next one due in summer- coreg ordered explainedhow to take it with food, and that it is a bp pill that helps to reduce portal pressues Avoidance of ethanol was recommended Low salt diet was also recommended Boost or ensure was recommended We spoke of what the meld score is, significance of it, importance of hcc surveillance every 6 months, what varices are - how they are treated endoscopically, what medications can potentially reduce portal pressures 6 months Jalyn Gallego MD documented in this encounter Nursing Notes * Camille Lee LPN - 08/26/2024 8:50 AM EDT Chief Complaint Patient presents with Follow Up Pt reports that she feels good. No symptoms documented in this encounter Plan of Treatment Upcoming Encounters Date Type Department Care Team (Late st Contact Info) Description 12/19/2024 8:00 AM EST Imaging Radiology [address] [address] Scheduled Orders Name Type Priority Associated Diagnoses Orde r Schedule CBC Lab Routine Other cirrhosis of liver (HCC) Expected: 08/26/2024, Expires: 08/26/2025 COMPREHENSIVE METABOLIC PANEL Lab Routine Other cirrhosis of liver (HCC) Expected: 08/26/2024, Expires: 08/26/2025 PT INR Lab Routine Other cirrhosis of liver (HCC) Expected: 08/26/2024, Expires: 08/26/2025 US ABDOMEN LIMITED Medical Imaging Routine Other cirrhosis of liver (HCC) Expected: 11/26/2024, Expires: 09/26/2025 Scheduled Procedures Name Priority Associated Diagnoses Date/Ti [...] Albumin/Creatinine Ratio 1982 HPV/Co-Test 1994 Mammogram 2004 DTap/Tdap Vaccines (1 [...] Panel 12/16/2020 12/16/2015 COVID-19 Vaccine ( season) 2024 Influenza Vaccine (FLU shot) (#1) [...] this encounter Medical Devices Implanted Type Area Medical And Health Services Manager Device Identifier Shelf Expiration Date Model / Serial / Lot Lens Intraoc 24.0 - [id number] - [id number] Implanted:Qty: 1 on 02/26/2021 by Manuel Azevedo MD at OR [facility] Right: Eye [employer] 04/15/2024 [id number] / [id number] / [id number] Lens Intraoc 23.5 - [id number] - [id number] Implanted:Qty: 1 on 03/12/2021 by Manuel Azevedo MD at OR [facility] Left: Eye [employer] 09/15/2025 [id number] / [id number] / [id number] documented as of this encounter Visit Diagnoses Diagnosis Other cirrhosis of liver (HCC)- Primary documented in this encounter Care Teams Pump Room Operator Relationship Specialty Start Date End Date Misael Vail MD [address] [facility] [place] [id number] PCP - General Family Medicine 06/01/24 documented as of this encounter"
--- OUTSIDE RECORDS SUMMARY | 2025-01-25 02:00 | External Medical Summary | Summary of Care ---
Author Name Unknown Organization [facility] Address [address] [place] [address] Phone [phone] Care Team Providers Care Public Welfare Director Name Role Phone Misael Vail MD Primary Care Provider [phone] Reason for Visit * Reason Comments Follow Up Patient presents in office today for a follow-up for medication. Encounter Details Date Type Department Care Team (Latest Contact Info) Description 09/09/2024 2:20 PM EDT Office Visit Family [facility] [address] [place] [address] Emilee Dunn CRNP [address] [facility] [place] [id number] Gastroesophageal reflux disease with esophagitis without hemorrhage*; Esophageal varices determined by endoscopy ([facility]); HTN, goal below 130/80; Osteopenia of neck of left femur; Vaginal dryness, menopausal; Tobacco use disorder Allergies Active Allergy Reactions Criticality Noted Date Comments Gluten Abdominal pain 07/03/2014 Gas, bloating Prednisone Diarrhea,Nausea/vomiting 07/08/2019 documented as of this encounter (statuses as of 09/09/2024) Medications Medication Sig Dispensed Refills Start Date End Date Status pyridOXINE (VITAMIN B-6) 100 MG Tablet 1 Tablet. 06/28/2019 Active Vitamin D3 125 MCG (5000 UT) Oral Capsule Take 1 Capsule by mouth in the morning. Active Zinc 25 MG Oral Tablet Take by mouth daily. Active Black Gore Pollen 1:20 Subcutaneous Solution Inject under the skin. Active Vitamin B-12 500 MCG Sublingual Tablet Sublingual (Vitamin B-12)Indications:a s needed Place 1 Tablet under the tongue in the morning. Active Calcium Lactate 100 MG Oral Tablet Take by mouth. Ac tive Potassium Bicarbonate 99 MG Oral Capsule Take by mouth. Twice weekly Active Oil of Oregano 1500 MG Oral Capsule Take by mouth. Active Carvedilol 6.25 MG Oral Tablet (Coreg) Take 1 Tablet by mouth 2 times a day with morning and evening meals. 30 Tablet 1 08/26/2024 Active Additional Information Patient not taking.Reported on 09/09/2024 Pantoprazole Sodium 40 MG Oral Tablet Delayed Release (Protonix) Take 1 Tablet by mouth in the morning. 180 Tablet 1 09/09/2024 Active Estradiol 0.1 MG/GM Vaginal Cream (Estrace) Administer 2 g into the vagina daily for 14 days, THEN 2 g once a day on Thursday, Thursday, and Thursday only. 42.5 g 3 09/09/2024 4 Active Pantoprazole Sodium 40 MG Oral Tablet Delayed Release (Protonix) Take 1 Tablet by mouth in the morning. 180 Tablet 3 08/26/2024 Discontinue d(Refill) documented as of this encounter (statuses as of 09/09/2024) Active Problems Problem Noted Date Diagnosed Date Osteopenia of neck of left femur 09/09/2024 Vaginal dryness, menopausal 09/09/2024 HTN, goal below 130/80 04/26/2024 Fatty liver 03/01/2024 Alcoholism, chronic 01/22/2024 Gastroesophageal reflux dise ase with esophagitis without hemorrhage 01/21/2024 Esophageal varices determined by endoscopy 09/09 Celiac disease 06/02/2019 Tobacco use disorder 12/25/2015 documented as of this encounter (statuses as of 09/09/2024) Resolved Problems Problem Noted Date Diagnosed Date Resolved Date History of acute hepatitis 09/09/2019 0 01/21/2024 History of ETOH abuse 07/10/20192023 Deviated nasal septum 05/25/20192023 Recurrent sinus infections 05/25/2019 0 01/21/2024 Mixed rhinitis 12/25/2015 01/21/2024 documented as of this encounter (statuses as of 09/09/2024) Immunizations Name Administration Dates Next Due Diptheria/Tetanus [...] Sign Reading Time Taken Comments Blood Pressure 104/68 09/09/2024 2:15 PM EDT Pulse 83 09/09/2024 2:15 PM EDT Temperature - - Respiratory Rate 16 09/09/2024 2:15 PM EDT Oxygen Saturation 94% 09/09/2024 2:15 PM EDT Inhaled Oxygen Concentration - - Weight 64 kg (141 lb) 09/09/2024 2:15 PM EDT Height 172.7 cm (5' 8") 09/09/2024 2:15 PM EDT Body Mass Index 21.44 09/09/2024 2:15 PM EDT documented in this encounter Progress Notes * Emilee Dunn, MELISSA - 09/09/2024 2:31 PM EDT Follow up Family Medicine Visit CC: Chief Complaint Patient presents with Follow Up Patient presents in office today for a follow-up for medication. History of Present Illness: Sheyla Melton is a 59 year old female presenting for follow up of gerd. She is taking protonix 40 mg twice daily. She is on protonix 40 mg tiwce daily Complains of vaginal dryness for 2 years. Worse after menopause. Painful intercourse. Social History Socioeconomic History Marital status: Spouse name: Not on file Number of children: Not on file Years of education: Not on file Highest education level: Not on file Occupational History Not on file Tobacco Use Smoking status: Every Day Current packs/day: 0.70 Average packs/day: 0.7 packs/day for 35.0 years (24.5 ttl pk-yrs) Types: Cigarettes Smokeless tobacco: Never Tobacco comments: 15 to 18 cigarettes a day/ no passive smoke Rolls her own cigarettes Vaping Use Vaping status: Never Used Substance and Sexual Activity Alcohol use: Yes Comment: none except sips since 07/2019, increased till 12/2023 none since Drug use: No Sexual activity: Yes Partners: Male Other Topics Concern Not on file Social History Narrative Not on file Social Determinants of Health Financial Resource Strain: Not on file Food Insecurity: No Food Insecurity (07/08/2019) Hunger Vital Sign Worried About Running Out of Food in the Last Year: Never true Ran Out of Food in the Last Year: Never true Transportation Needs: Not on file Social Connections: Unknown (05/03/2024) Social Connections How often do you feel lonely or isolated from those around you? (Adult - for ages 18 years and over): Not on file Housing Stability: Not on file PMH: Past Medical History: Diagnosis Date Alcoholic (HCC) 01/22/2024 Celiac disease Endometriosis Fatty liver 03/01/2024 Gastroesophageal reflux disease with esophagitis without hemorrhage 01/21/2024 HTN, goal below 130/80 04/26/2024 Hyperthyroidism 2009, radiation recommended, no meds. Mixed rhinitis 12/25/2015 Pelvic congestion syndrome varicose veins "crushing" ovaries Tobacco use disorder 12/25/2015 Past Surgical History: Procedure Laterality Date EGD, FLEXIBLE, DIAGNOSTIC 07/13/2019 esophageal varices/ESOPHAGOGASTRODUODENOSCOPY (EGD), FLEXIBLE, TRANSORAL, DIAGNOSTIC performed by Andrea Mendez MD at END[facility]COPY [facility] EGD, FLEXIBLE, DIAGNOSTIC N/A 01/11/2024 grade III esophageal varices/portal hypertensive gastropathy/repeat 3 months/EGD/[place] EGD, FLEXIBLE, DIAGNOSTIC 06/01/2024 scar esophagus/portal hypertensive gastropathy/recall 1 year/ESOPHAGOGASTRODUODENOSCOPY (EGD), FLEXIBLE, TRANSORAL, DIAGNOSTIC performed by John Good MD at [facility] EGD, W/ENDOSCOPIC US 07/13/2019 normal/ESOPHAGOGASTRODUODENOSCOPY (EGD), FLEXIBLE, TRANSORAL, ENDOSCOPIC ULTRASOUND performed by Andrea Mendez MD at [facility] MISCELLANEOUS ORDER ([facility] ONLY) 1994 Tubes tied MISCELLANEOUS ORDER ([facility] ONLY) Left 10/13/2018 left eye repair surgery REMOVE CATARACT, INSERT LENS PROSTH Right 02/26/2021 RIGHT EXTRACAPSULAR CATARACT REMOVAL WITH INTRAOCULAR LENS performed by Manuel Azevedo MD at [facility] REMOVE CATARACT, INSERT LENS PROSTH Left 03/12/2021 LEFT EXTRACAPSULAR CATARACT REMOVAL WITH INTRAOCULAR LENS performed by Manuel Azevedo MD at [facility] Current Outpatient Medications Medication Sig Dispense Refill Pantoprazole Sodium 40 MG Oral Tablet Delayed Release (Protonix) Take 1 Tablet by mouth in the morning. 180 Tablet 3 Oil of Oregano 1500 MG Oral Capsule Take by mouth. Calcium Lactate 100 MG Oral Tablet Take by mouth. Potassium Bicarbonate 99 MG Oral Capsule Take by mouth. Twice weekly Black Gore Pollen 1:20 Subcutaneous Solution Inject under the skin. Vitamin D3 125 MCG (5000 UT) Oral Capsule Take 1 Capsule by mouth in the morning. Zinc 25 MG Oral Tablet Take by mouth daily. pyridOXINE (VITAMIN B-6) 100 MG Tablet 1 Tablet. Carvedilol 6.25 MG Oral Tablet (Coreg) Take 1 Tablet by mouth 2 times a day with morning and evening meals. (Patient not taking: Reported on 09/09/2024) 30 Tablet 1 Vitamin B-12 500 MCG Sublingual Tablet Sublingual (Vitamin B-12) Place 1 Tablet under the tongue inthe morning. (Patient not taking: Reported on 08/26/2024) No current facility-administered medications for this visit. Review of patient's allergies indicates: Allergen Reactions Gluten Abdominal pain Gas, bloating Prednisone Diarrhea and Nausea/vomiting Most Recent Immunizations Administered Date(s) Administered Diptheria/Tetanus (Adult) 11/19/2006 HEP A - Hepatitis A (Adult > 18 yrs) 09/09/2019 Hepatitis B, 20+ yrs 11/28/2019 Review of Systems: Review of Systems Constitutional: Negative for fatigue. Respiratory: Negative for shortness of breath. Cardiovascular: Negative for chest pain. Gastrointestinal: Gerd Denies bleeding Genitourinary: Positive for vaginal pain. Negative for vaginal bleeding. Physical Exam: BP 104/68 | Pulse 83 | Resp 16 | Ht 1.727 m (5' 8") | Wt 64 kg (141 lb) | SpO2 94% | BMI 21.44 kg/m | BSA 1.75 m Physical Exam HENT: Head: Normocephalic. Cardiovascular: Rate and Rhythm: Normal rate and regular rhythm. Pulmonary: Effort: Pulmonary effort is normal. Breath sounds: Normal breath sounds. Abdominal: General: Bowel sounds are normal. Palpations: Abdomen is soft. Tenderness: There is no abdominal tenderness. Musculoskeletal: General: Normal range of motion. Cervical back: Normal range of motion. Neurological: General: No focal deficit present. Mental Status: She is alert and oriented to person, place, and time. Psychiatric: Mood and Affect: Mood normal. Behavior: Behavior normal. Thought Content: Thought content normal. Judgment: Judgment normal. Assessment and Plan: 1. 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 Esophageal varices determined by endoscopy (HCC) 3. HTN, goal below 130/80 STABLE 4. Osteopenia of neck of left femur NOTED on last dexa Repeat overdue - DEXA SCAN/BONE MINERAL AXIAL 5. Vaginal dryness, menopausal BOTHERSOME TO PATIENT ADD VAGINAL ESTROGEN CREAM Hx of chronic hepatic disease but this is topical estrogen in vaginal only. 6. Tobacco use disorder I have advised the patient to call our office incase of any worsening or new symptoms. I spent a total of 40-54 minutes (exact time 40 mins) on the date of service in preparation, delivery, and documentation of the care provided to Sheyla Melton excluding any time spent in the performance of separately billed services. Vijay, MSN, MELISSA [facility] documented in this encounter Nursing Notes * Judy Go MED ASSIST - 09/09/2024 2:13 PM EDT The patient has been properly identified by confirmation of name and date of . Chief Complaint Patient presents with Follow Up Patient presents in office today for a follow-up for medication. documented in this encounter Plan of Treatment Upcoming Encounters Date Type Department Care Team (Late st Contact Info) Description 09/26/2024 2:30 PM EST Imaging Radiology, [facility] [address] [facility] [address] 12/19/2024 8:00 AM EST Imaging Radiology [facility] [address] [place] [address] Scheduled Orders Name Type Priority Associated Diagnoses Orde r Schedule MAGNESIUM Lab Routine Gastroesophageal reflux disease with esophagitis without hemorrhage Expected: 09/09/2024 (Approximate), Expires: 09/09/2025 VITAMIN B12 Lab Routine Gastroesophageal reflux disease with esophagitis without hemorrhage Expected: 09/09/2024 (Approximate), Expires: 09/09/2025 DEXA SCAN/BONE MINERAL AXIAL Medical Imaging Routine Osteopenia of neck of left femur Ordered: 09/09/2024 Scheduled Procedures Name Priority Associated Diagnoses Date/Ti [...] this encounter Medical Devices Implanted Type Area Tobacco Flavorer Device Identifier Shelf Expiration Date Model / Serial / Lot Lens Intraoc 24.0 - [id number] - [id number] Implanted:Qty: 1 on 02/26/2021 by Manuel Azevedo MD at [facility] Right: Eye [employer] 04/15/2024 [id number] / [id number] / [id number] Lens Intraoc 23.5 - [id number] - [id number] Implanted:Qty: 1 on 03/12/2021 by Manuel Azevedo MD at [facility] Left: Eye [employer] 09/15/2025 [id number] / [id number] / [id number] documented as of this encounter Visit Diagnoses Diagnosis Gastroesophageal reflux disease with esophagitis without hemorrhage- Primary Esophageal varices determined by endoscopy (HCC) HTN, goal below 130/80 Unspecified essential hypertension Osteopenia of neck of left femur Vaginal dryness, menopausal Symptomatic menopausal or female climacteric states Tobacco use disorder documented in this encounter Care Teams Public Welfare Director Relationship Specialty Start Date End Date Misael Vail MD [address] [place] [address] PCP - General Family Medicine 06/01/24 documented as of this encounter
--- OUTSIDE RECORDS SUMMARY | 2025-01-25 02:00 | External Medical Summary | Summary of Care ---
Author Name Unknown Organization [facility] Address [address] [place] [place] [address] Phone [phone] Care Team Providers Care Manager Emergency Name Role Phone Misael Vail MD Primary Care Provider [phone] Reason for Visit * Reason Comments Follow Up Pt reports that she feels good. No symptoms Encounter Details Date Type Department Care Team (Late st Contact Info) Description 08/26/2024 8:40 AM EDT Office Visit Hepatology, [facility] [address] [facility] [place] [address] Jalyn Gallego MD [address] [place] [address] [place] [address] Other cirrhosis of liver (HCC)* [...] Tablet Take by mouth daily. Active Black [place] Pollen 1:20 Subcutaneous Solution Inject under the [...] Oral Tablet Take by mouth daily. Black [place] Pollen 1:20 Subcutaneous Solution Inject under the [...] Description 12/19/2024 8:00 AM EST Imaging Radiology [address] [address] Scheduled Orders Name Type Priority Associated Diagnoses [...] this encounter Medical Devices Implanted Type Area Back Padder Device Identifier Shelf Expiration Date Model / Serial / Lot Lens Intraoc 24.0 - [id number] - [id number] Implanted:Qty: 1 on 02/26/2021 by Manuel Azevedo MD at [facility] Right: Eye [employer] 04/15/2024 [id number] / [id number] / [id number] Lens Intraoc 23.5 - [id number] - [id number] Implanted:Qty: 1 on 03/12/2021 by Manuel Azevedo MD at [facility] Left: Eye [employer] 09/15/2025 [id number] / [id number] / [id number] documented as of this encounter Visit Diagnoses Diagnosis Other cirrhosis of liver (HCC)- Primary documented in this encounter Care Teams Manager Emergency Relationship Specialty Start Date End Date Misael Vail MD [address] [facility] [place] [address] PCP - General Family Medicine 06/01/24 documented as of this encounter"
--- OUTSIDE RECORDS SUMMARY | 2025-01-25 02:00 | External Medical Summary | Summary of Care ---
Author Name Unknown Organization [facility] Address [address] [place] [address] Phone [phone] Care Team Providers Care Hasher Operator Name Role Phone Misael Vail MD Primary Care Provider [phone] Encounter Details Date Type Department Care Team (Late st Contact Info) Description 11/23/2024 Telephone Family Practice [facility] [address] [facility] [place] [address] Emilee Dunn CRNP [address] [facility] [place] [address] Allergies Active Allergy Reactions Criticality Noted Date Comments Gluten Abdominal pain 07/03/2014 Gas, bloating Prednisone Diarrhea,Nausea/vomiting 07/08/2019 documented as of this encounter (statuses as of 11/23/2024) Medications pyridOXINE (VITAMIN B-6) 100 MG Tablet 1 Tablet. 9 Active Vitamin D3 125 MCG (5000 UT) Oral Capsule Take 1 Capsule by mouth in the morning. Active Zinc 25 MG Oral Tablet Take by mouth daily. Active Black [place] Pollen 1:20 Subcutaneous Solution Inject under the [...] 30 Tablet 1 08/26/2024 9:11 AM EDT 4 Active Additional Information Patient not taking.Reported on 11/23/2024 Pantoprazole Sodium 40 MG Oral Tablet Delayed Release (Protonix) Take 1 Tablet by mouth in the morning. 180 Tablet 1 09/09/2024 3:29 PM EDT 4 Active Benzonatate 100 MG Oral Capsule Take 1 Capsule by mouth 3 times a day as needed for Cough. 30 Capsule 1 11/23/2024 10:01 AM EST 5 Active methylPREDNISolo ne 4 MG Oral Tablet Therapy Pack (Medrol Dosepack) follow package directions 21 Tablet 11/23/2024 10:01 AM EST 5 Active documented as of this encounter (statuses as of 11/23/2024) Active Problems Problem Noted Date Diagnosed Date Osteopenia of neck of left femur 09/09/2024 Vaginal dryness, menopausal 09/09/2024 HTN, goal below 130/80 04/26/2024 Fatty liver 03/01/2024 Alcoholism, chronic 01/22/2024 Gastroesophageal reflux dise ase with esophagitis without hemorrhage 01/21/2024 Esophageal varices determined by endoscopy 09/09 Celiac disease 06/02/2019 Tobacco use disorder 12/25/2015 documented as of this encounter (statuses as of 11/23/2024) Resolved Problems Problem Noted Date Diagnosed Date Resolved Date History of acute hepatitis 09/09/2019 0 01/21/2024 History of ETOH abuse 07/10/20192023 Deviated nasal septum 05/25/20192023 Recurrent sinus infections 05/25/2019 0 01/21/2024 Mixed rhinitis 12/25/2015 01/21/2024 documented as of this encounter (statuses as of 11/23/2024) Immunizations Name Administration Dates Next Due Diptheria/Tetanus [...] encounter Miscellaneous Notes * Telephone Encounter - Kiara Marie LPN - 11/23/2024 2:45 PM EST Called pt-- informed of message below. Voiced understanding. * Telephone Encounter - Emilee Dunn CRNP - 11/23/2024 2:42 PM EST Please notify patient Chest x ray clear documented in this encounter Plan of Treatment Upcoming Encounters Date Type Department Care Team (Late st Contact Info) Description 12/19/2024 8:00 AM EST Imaging Radiology [facility], [address] [place] [address] Scheduled Procedures Name Priority Associated Diagnoses Date/Ti [...] Panel 12/16/2020 12/16/2015 COVID-19 Vaccine ( - 2023- season) 2024 Influenza Vaccine (FLU shot) (#1) [...] this encounter Medical Devices Implanted Type Area Ice Carver Device Identifier Shelf Expiration Date Model / Serial / Lot Lens Intraoc 24.0 - [id number] - [id number] Implanted:Qty: 1 on 02/26/2021 by Roberto CarlosManuel downs MD at [facility] Right: Eye [employer] 04/15/2024 [id number] / [id number] / [id number] Lens Intraoc 23.5 - [id number] - [id number] Implanted:Qty: 1 on 03/12/2021 by Manuel Azevedo MD at [facility] Left: Eye [employer] 09/15/2025 [id number] / [id number] / [id number] documented as of this encounter Care Teams Hasher Operator Relationship Specialty Start Date End Date Misael Vail MD [address] [place] [address] PCP - General Family Medicine 06/01/24 documented as of this encounter
--- OUTSIDE RECORDS SUMMARY | 2025-01-25 02:00 | External Medical Summary | Summary of Care ---
Author Name Unknown Organization [facility] Address [address] [place] [address] Phone [phone] Care Team Providers Care Valving Machine Operator Name Role Phone Misael Vail MD Primary Care Provider [phone] Reason for Referral * Evaluate & Treat - Unlimited Visits (Within 30 days (routine)) - Pending Review Specialty Diagnoses / Procedures Referred By Larry garrison Referred To Contact Physical Therapy / Physical Medicine And Rehab Diagnoses Fall on ice Acute left-sided low back pain with left-sided sciatica Emilee Dunn CRNP [address] [facility] [place] [address] Phone: tel: fax: Referral ID Status Reason Start Date Expiration Date Visits Requested Visits Authorized [id number] Pending Review Specialty Services Required 01/04/[phone] Question Answer Referral Priority Within 30 days (routine) Where should this appointment be scheduled? [facility] Reason for Visit * Reason Comments Back Pain Fell last a nd twice on Thursday on ice, L buttock in severe pain Encounter Details Date Type Department Care Team (Late st Contact Info) Description 01/04/2025 9:00 AM EST Office Visit Family Practice [facility] [address] [facility] [place] [address] Emilee Dunn CRNP [address] [place] [address] Fall on ice*; Acute left-sided low back pain with left-sided sciatica; Concussion without loss of consciousness, initial encounter; Tobacco use disorder Allergies Active Allergy Reactions Criticality Noted Date Comments Gluten Abdominal pain 07/03/2014 Gas, bloating Prednisone Diarrhea,Nausea/vomiting 07/08/2019 documented as of this encounter (statuses as of 01/04/2025) Medications pyridOXINE (VITAMIN B-6) 100 MG Tablet 1 Tablet. 06/28/20 Active Vitamin D3 125 MCG (5000 UT) Oral Capsule Take 1 Capsule by mouth in the morning. Active Zinc 25 MG Oral Tablet Take by mouth daily. Active Black Hingham Pollen 1:20 Subcutaneous Solution Inject under the [...] Active Additional Information Patient not taking.Reported on 01/04/2025 Pantoprazole Sodium 40 MG Oral Tablet Delayed Release (Protonix) Take 1 Tablet by mouth in the morning. 180 Tablet 1 09/09/2024 3:29 PM EDT 09/09/20 24 Active Benzonatate 100 MG Oral Capsule Take 1 Capsule by mouth 3 times a day as needed for Cough. 30 Capsule 1 01/04/2025 9:07 AM EST 11/23/19 25 Active methylPREDNISolo ne 4 MG Oral Tablet Therapy Pack (Medrol Dosepack) follow package directions 21 Tablet 01/04/2025 10:01 AM EST 01/04/20 25 Active Cyclobenzaprine HCl 5 MG Oral Tablet (Flexeril) Take 1 Tablet by mouth in the morning and 1 Tablet before bedtime. 30 Tablet 01/04/20 25 Active methylPREDNISolo ne 4 MG Oral Tablet Therapy Pack (Medrol Dosepack) follow package directions 21 Tablet 11/23/2024 10:01 AM EST 11/23/19 25 025 Discontin ued(Medic ation List Clean Up) documented as of this encounter (statuses as of 01/04/2025) Active Problems Problem Noted Date Diagnosed Date Acute left-sided low back pain with left-sided s ciatica 01/04/2025 Fall on ice 01/04/2025 Concussion with no loss of consciousness 025 Osteopenia of neck of left femur 09/09/2024 Vaginal dryness, menopausal 09/09/2024 HTN, goal below 130/80 04/26/2024 Fatty liver 03/01/2024 Alcoholism, chronic 01/22/2024 Gastroesophageal reflux dise ase with esophagitis without hemorrhage 01/21/2024 Esophageal varices determined by endoscopy 09/09 Celiac disease 06/02/2019 Tobacco use disorder 12/25/2015 documented as of this encounter (statuses as of 01/04/2025) Resolved Problems Problem Noted Date Diagnosed Date Resolved Date History of acute hepatitis 09/09/2019 0 01/21/2024 History of ETOH abuse 07/10/20192023 Deviated nasal septum 05/25/20192023 Recurrent sinus infections 05/25/2019 0 01/21/2024 Mixed rhinitis 12/25/2015 01/21/2024 documented as of this encounter (statuses as of 01/04/2025) Immunizations Name Administration Dates Next Due Diptheria/Tetanus [...] Sign Reading Time Taken Comments Blood Pressure 128/64 01/04/2025 8:57 AM EST Pulse 88 01/04/2025 8:57 AM EST Temperature 36.2 C (97.1 F) 01/04/2025 8:57 AM ES T Respiratory Rate 24 01/04/2025 8:57 AM EST Oxygen Saturation - - Inhaled Oxygen Concentration - - Weight - - Height - - Body Mass Index - - documented in this encounter Progress Notes * Emilee Dunn CRNP - 01/04/2025 9:11 AM EST Follow up Family Medicine Visit CC: Chief Complaint Patient presents with Back Pain Fell last and twice on Thursday on ice, L buttock in severe pain History of Present Illness: History of Present Illness Sheyla Ortiz, a patient with no significant past medical history, presents with back and legpain following multiple falls on ice. The first fall occurred on , followed by two additional falls on Thursday. The patient landed on her left buttock during the falls and has since experienced pain in that area, which has migrated down the leg. The pain is described as a severe ache, varying in intensity depending on position, and is severe enough to induce nausea. The patient has attempted to manage the pain with various ointments and liniments, with limited success. In addition to the pain, the patient reports experiencing numbness and tingling in the leg. The patient also reports a single instance of loss of bowel function following the falls, but this has not recurred. The patient experienced a headache for two days following the falls, which has since resolved. The patient denies any loss of consciousness, blurred vision, or dizziness following the falls.However, the patient reports significant fatigue and difficulty sleeping due to the pain, which is a departure from her baseline. Social History Socioeconomic History Marital status: Spouse [...] Social History Narrative Not on file Social Needs Financial Resource Strain: Not on file Food [...] 01/21/2024 HTN, goal below 130/80 04/26/2024 Hyperthyroidism 2008, radiation recommended, no meds. Mixed rhinitis 12/25/2015 Pelvic congestion syndrome varicose veins "crushing" ovaries Tobacco use disorder 12/25/2015 Past Surgical History: Procedure Laterality Date EGD, FLEXIBLE, DIAGNOSTIC 07/13/2019 esophageal varices/ESOPHAGOGASTRODUODENOSCOPY (EGD), FLEXIBLE, TRANSORAL, DIAGNOSTIC performed by Andrea Mendez MD at ENDOSCOPY [facility] EGD, FLEXIBLE, DIAGNOSTIC N/A 01/11/2024 grade III esophageal varices/portal hypertensive gastropathy/repeat 3 months/EGD/[place] EGD, FLEXIBLE, DIAGNOSTIC 06/01/2024 scar esophagus/portal hypertensive gastropathy/recall 1 year/ESOPHAGOGASTRODUODENOSCOPY (EGD), FLEXIBLE, TRANSORAL, DIAGNOSTIC performed by John Good MD at ENDOSCOPY [facility] EGD, W/ENDOSCOPIC US 07/13/2019 normal/ESOPHAGOGASTRODUODENOSCOPY (EGD), FLEXIBLE, TRANSORAL, ENDOSCOPIC ULTRASOUND performed by Andrea Mendez MD at ENDOSCOPY [facility] MISCELLANEOUS ORDER ([facility] ONLY) 1994 Tubes tied MISCELLANEOUS ORDER ([facility] ONLY) Left 10/13/2018 left eye repair surgery REMOVE CATARACT, INSERT LENS PROSTH Right 02/26/2021 RIGHT EXTRACAPSULAR CATARACT REMOVAL WITH INTRAOCULAR LENS performed by Manuel Azevedo MD at OR [facility] REMOVE CATARACT, INSERT LENS PROSTH Left 03/12/2021 LEFT EXTRACAPSULAR CATARACT REMOVAL WITH INTRAOCULAR LENS performed by Manuel Azevedo MD at OR [facility] Current Outpatient Medications Medication Sig Dispense Refill Benzonatate 100 MG Oral Capsule Take 1 Capsule by mouth 3 times a day as needed for Cough. 30 Capsule 1 Pantoprazole Sodium 40 MG Oral Tablet Delayed Release (Protonix) Take 1 Tablet by mouth in the morning. 180 Tablet 1 Oil of Oregano 1500 MG Oral Capsule Take by mouth. Calcium Lactate 100 MG Oral Tablet Take by mouth. Potassium Bicarbonate 99 MG Oral Capsule Take by mouth. Twice weekly Vitamin B-12 500 MCG Sublingual Tablet Sublingual (Vitamin B-12) Place 1 Tablet under the tongue inthe morning. Black [place] Pollen 1:20 Subcutaneous Solution Inject under the [...] evening meals. (Patient not taking: Reported on 01/04/2025) 30 Tablet 1 No current facility-administered medications for this visit. Review of patient's allergies indicates: Allergen Reactions Gluten Abdominal pain Gas, bloating Prednisone Diarrhea and Nausea/vomiting Most Recent Immunizations Administered Date(s) Administered Diptheria/Tetanus (Adult) 11/19/2006 HEP A - Hepatitis A (Adult > 18 yrs) 09/09/2019 Hepatitis B, 20+ yrs 11/28/2019 Review of Systems: Review of Systems Constitutional: Negative for fatigue and fever. Musculoskeletal: Positive for back pain. Neurological: Positive for weakness, numbness and headaches. Negative for dizziness and syncope. Physical Exam: BP 128/64 (BP Site: Left Arm, BP Position: Sitting, BP Cuff Size: Regular) | Pulse 88 | Temp 97.1 F (36.2 C) (Tympanic) | Resp 24 Physical Exam HENT: Head: Normocephalic. Eyes: Pupils: Pupils are equal, round, and reactive to light. Cardiovascular: Rate and Rhythm: Normal rate and regular rhythm. Pulmonary: Effort: Pulmonary effort is normal. Breath sounds: Normal breath sounds. Abdominal: General: Bowel sounds are normal. Palpations: Abdomen is soft. Tenderness: There is no abdominal tenderness. Musculoskeletal: Cervical back: Normal range of motion. Lumbar back: Spasms present. No swelling or edema. Decreased range of motion. Neurological: General: No focal deficit present. Mental Status: She is alert and oriented to person, place, and time. Psychiatric: Mood and Affect: Mood normal. Behavior: Behavior normal. Thought Content: Thought content normal. Judgment: Judgment normal. Assessment and Plan: Assessment & Plan Fall with subsequent low back pain and left leg pain Pain is severe, positional, and radiating down the left leg with associated numbness and tingling. No significant bruising noted on examination. No loss of bowel or bladder function since the initialincident. -Order lumbar spine and left hip X-rays to rule out fractures. ADD medrol Add flexeril Add physical therapy Concussion History of fall with subsequent headache for two days, now resolved. No loss of consciousness, blurred vision, or dizziness. Patient reports feeling exhausted and having difficulty sleeping since thefall. -Advise rest and gradual return to normal activities. -Monitor for worsening or persistent symptoms. Chronic cough Noted during examination, but not discussed in detail. -Address in future visit if persistent. 1. Fall on ice (Primary) - PHYSICAL THERAPY REFERRAL OP 2. Acute left-sided low back pain with left-sided sciatica - XR L SPINE 2-3 VIEWS - XR HIP UNILAT 2-3 VIEWS INCLUDING AP PELVIS - PHYSICAL THERAPY REFERRAL OP 3. Concussion without loss of consciousness, initial encounter 4. Tobacco use disorder Text in this note was generated using an [employer] documentation service. I discussed the use of a device to record and summarize our discussion today. All persons present during the encounter consented to its use. I have advised the patient to call our office incase of any worsening or new symptoms. I spent a total of 20-29 minutes (exact time 25 mins) on the date of service in preparation, delivery, and documentation of the care provided to Sheyla Melton excluding any time spent in the performance of separately billed services. Vijay, MSN, MELISSA [facility] documented in this encounter Plan of Treatment Scheduled Procedures Name Priority Associated Diagnoses Date/Ti me ESOPHAGOGASTRODUODENOSCOPY ( EGD), FLEXIBLE, TRANSORAL, DIAGNOSTIC Recall Esophageal varices (HCC) COLONOSCOPY FLEXIBLE PROXIMAL DIAGNOSTIC Recall Alcoholic hepatitis, unspecified whether ascites present ESOPHAGOGASTRODUODENOSCOPY ( EGD), FLEXIBLE, TRANSORAL, DIAGNOSTIC Recall Alcoholic hepatitis, unspecified whether ascites present Scheduled Referrals Name Type Priority Associated Diagnoses Orde r Schedule PHYSICAL THERAPY REFERRAL OP Referral Within 30 days (routine) Fall on ice Acute left-sided low back pain with left-sided sciatica Ordered: 01/04/2025 Health Maintenance Due Date Last Done Comments [...] Panel 12/16/2020 12/16/2015 COVID-19 Vaccine (1 - 2023- season) 2024 Influenza Vaccine (FLU [...] this encounter Medical Devices Implanted Type Area Seafood Process Worker Device Identifier Shelf Expiration Date Model / Serial / Lot Lens Intraoc 24.0 - [id number] - [id number] Implanted:Qty: 1 on 02/26/2021 by Manuel Azevedo MD at OR [facility] Right: Eye [employer] 04/15/2024 [id number] / [id number] / [id number] Lens Intraoc 23.5 - [id number] - [id number] Implanted:Qty: 1 on 03/12/2021 by Manuel Azevedo MD at OR [facility] Left: Eye [employer] 09/15/2025 [id number] / [id number] / [id number] documented as of this encounter Procedures Procedure Name Priority Date/Time Associated Diagnosis Comments XR HIP UNILAT 2-3 VIEWS INCLUDING AP PELVIS Routine 01/04/2025 9:49 AM EST Acute left-sided low back pain with left-sided sciatica XR L SPINE AP AND LATERAL Routine 01/04/2025 9:49 AM EST Acute left-sided low back pain with left-sided sciatica documented in this encounter Results * XR HIP UNILAT 2-3 VIEWS INCLUDING AP PELVIS (01/04/2025 9:49 AM EST) Anatomical Region Laterality Modality Lower Extremity, Hip, Pelvis Com puted Radiography 01/04/2025 9:54 AM EST Impressions 01/04/2025 9:52 AM EST IMPRESSION 1. No fracture identified. 2. Degenerative findings as above. Narrative 01/04/2025 9:52 AM EST EXAM XR L SPINE 2-3 VIEWS; XR HIP UNILAT 2-3 VIEWS INCLUDING AP PELVIS-LT 01/04/2025 9:49 am HISTORY Provided clinical history: "low back pain s/p fall; left hip/SI pain s/p fall" TECHNIQUE AP, lateral, and L5-S1 spot lateral views of the lumbar spine were obtained. Four views of the pelvis and left hip were also obtained. COMPARISON CT scan dated June 07, 2019. FINDINGS Lumbar spine: Five lumbar-type vertebral bodies. Mild lumbar dextroscoliosis. Mild grade 1 anterolisthesis of L2 on L3. Multilevel intervertebral disc degeneration, severe at L4-5 and L5-S1. Multilevel facet osteoarthritis, greatest near the lumbosacral junction. No fracture identified. Pelvis and left hip: No significant joint space narrowing. No fracture identified. Mild bilateral sacroiliac osteoarthritis. Procedure Note Bigger, Lyle Snigh MD - 01/04/2025 EXAM XR L SPINE 2-3 VIEWS; XR HIP UNILAT 2-3 VIEWS INCLUDING AP PELVIS-LT 01/04/2025 9:49 am HISTORY Provided clinical history: "low back pain s/p fall; left hip/SI pain s/pfall" TECHNIQUE AP, lateral, and L5-S1 spot lateral views of the lumbar spine wereobtained. Four views of the pelvis and left hip were also obtained. COMPARISON CT scan dated June 07, 2019. FINDINGS Lumbar spine: Five lumbar-type vertebral bodies. Mild lumbar dextroscoliosis. Mildgrade 1 anterolisthesis of L2 on L3. Multilevel intervertebral discdegeneration, severe at L4-5 and L5-S1. Multilevel facet osteoarthritis,greatest near the lumbosacral junction. No fracture identified. Pelvis and left hip: No significant joint space narrowing. No fracture identified. Mildbilateral sacroiliac osteoarthritis. IMPRESSION IMPRESSION 1. No fracture identified. 2. Degenerative findings as above. us Emilee [facility] (RAD GENERAL ) Final Result * XR L SPINE 2-3 VIEWS (01/04/2025 9:49 AM EST) Anatomical Region Laterality Modality Vertebra, Lspine Computed Radiog tyrone 01/04/2025 9:54 AM EST Impressions 01/04/2025 9:52 AM EST IMPRESSION 1. No fracture identified. 2. Degenerative findings as above. Narrative 01/04/2025 9:52 AM EST EXAM XR L SPINE 2-3 VIEWS; XR HIP UNILAT 2-3 VIEWS INCLUDING AP PELVIS-LT 01/04/2025 9:49 am HISTORY Provided clinical history: "low back pain s/p fall; left hip/SI pain s/p fall" TECHNIQUE AP, lateral, and L5-S1 spot lateral views of the lumbar spine were obtained. Four views of the pelvis and left hip were also obtained. COMPARISON CT scan dated June 07, 2019. FINDINGS Lumbar spine: Five lumbar-type vertebral bodies. Mild lumbar dextroscoliosis. Mild grade 1 anterolisthesis of L2 on L3. Multilevel intervertebral disc degeneration, severe at L4-5 and L5-S1. Multilevel facet osteoarthritis, greatest near the lumbosacral junction. No fracture identified. Pelvis and left hip: No significant joint space narrowing. No fracture identified. Mild bilateral sacroiliac osteoarthritis. Procedure Note Lyle Butler MD - 01/04/2025 EXAM XR L SPINE 2-3 VIEWS; XR HIP UNILAT 2-3 VIEWS INCLUDING AP PELVIS-LT 01/04/2025 9:49 am HISTORY Provided clinical history: "low back pain s/p fall; left hip/SI pain s/pfall" TECHNIQUE AP, lateral, and L5-S1 spot lateral views of the lumbar spine wereobtained. Four views of the pelvis and left hip were also obtained. COMPARISON CT scan dated June 07, 2019. FINDINGS Lumbar spine: Five lumbar-type vertebral bodies. Mild lumbar dextroscoliosis. Mildgrade 1 anterolisthesis of L2 on L3. Multilevel intervertebral discdegeneration, severe at L4-5 and L5-S1. Multilevel facet osteoarthritis,greatest near the lumbosacral junction. No fracture identified. Pelvis and left hip: No significant joint space narrowing. No fracture identified. Mildbilateral sacroiliac osteoarthritis. IMPRESSION IMPRESSION 1. No fracture identified. 2. Degenerative findings as above. Emilee [facility] (RAD GENERAL ) Final Result documented in this encounter Visit Diagnoses Diagnosis Fall on ice- Primary Acute left-sided low back pain with left-sided sciatica Concussion without loss of consciousness, initial encounter Tobacco use disorder documented in this encounter Care Teams Valving Machine Operator Relationship Specialty Start Date End Date Misael Vail MD [address] [place] [address] PCP - General Family Medicine 06/01/24 documented as of this encounter
--- OUTSIDE RECORDS SUMMARY | 2025-01-25 02:00 | External Medical Summary | Summary of Care ---
Author Name Unknown Organization [facility] Address [address] [place] [address] Phone [phone] Care Team Providers Care Cloud Services Architect Name Role Phone Misael Vail MD Primary Care Provider [phone] Reason for Visit * Reason Onset Date Comments Test Results 01/05/2025 Encounter Details Date Type Department Care Team (Late st Contact Info) Description 01/05/2025 Telephone Family Practice [facility] [address] [place] [address] Emilee Dunn CRNP [address] [facility] [address] Test Results Allergies Active Allergy Reactions Criticality Noted Date Comments Gluten Abdominal pain 07/03/2014 Gas, bloating Prednisone Diarrhea,Nausea/vomiting 07/08/2019 documented as of this encounter (statuses as of 01/06/2025) Medications pyridOXINE (VITAMIN B-6) 100 MG Tablet [...] 1 01/04/2025 9:07 AM EST 5 Active methylPREDNISolo ne 4 MG Oral Tablet Therapy Pack (Medrol Dosepack) follow package directions 21 Tablet 01/04/2025 10:01 AM EST 5 Active Cyclobenzaprine HCl 5 MG Oral Tablet (Flexeril) Take 1 Tablet by mouth in the morning and 1 Tablet before bedtime. 30 Tablet 5 Active documented as of this encounter (statuses as of 01/06/2025) Active Problems Problem Noted Date Diagnosed Date [...] as of this encounter (statuses as of 01/06/2025) Resolved Problems Problem Noted Date Diagnosed Date Resolved Date History of acute hepatitis 09/09/2019 0 01/21/2024 History of ETOH abuse 07/10/20192023 Deviated nasal septum 05/25/20192023 Recurrent sinus infections 05/25/2019 0 01/21/2024 Mixed rhinitis 12/25/2015 01/21/2024 documented as of this encounter (statuses as of 01/06/2025) Immunizations Name Administration Dates Next Due Diptheria/Tetanus [...] encounter Miscellaneous Notes * Telephone Encounter - Snow Harry RN - 01/06/2025 11:35 AM EST Called and gave message * Telephone Encounter - Emilee Dunn CRNP - 01/05/2025 9:32 AM EST Please notify patient Both x rays show no fractures but it does 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 Vijay, MSN, MELISSA [facility] documented in this encounter Plan of [...] this encounter Medical Devices Implanted Type Area Call Specialist Device Identifier Shelf Expiration Date Model / Serial / Lot Lens Intraoc 24.0 - [id number] - [id number] Implanted:Qty: 1 on 02/26/2021 by Manuel Azevedo MD at OR [facility] Right: Eye [employer] 04/15/2024 [id number] / [id number] / [id number] Lens Intraoc 23.5 - [id number] - [id number] Implanted:Qty: 1 on 03/12/2021 by Manuel Azevedo MD at OR [facility] Left: Eye [employer] 09/15/2025 [id number] / [id number] / [id number] documented as of this encounter Care Teams Cloud Services Architect Relationship Specialty Start Date End Date Misael Vail MD [address] [facility] [place] [address] PCP - General Family Medicine 06/01/24 documented as of this encounter
--- OUTSIDE RECORDS SUMMARY | 2025-01-25 02:00 | External Medical Summary | Summary of Care ---
Author Name Unknown Organization [facility] Address [address] [facility] [place] [address] Phone [phone] Care Team Providers Care Manager User Interface Name Role Phone Misael Vail MD Primary Care Provider [phone] Encounter Details Date Type Department Care Team (Late st Contact Info) Description 08/29/2024 Orders Only PATIENT PORTAL DO NOT DELETE THIS DEPT USED BY [place] [id number] Allergies Active Allergy Reactions Criticality Noted Date Comments Gluten Abdominal pain 07/03/2014 Gas, bloating Prednisone Diarrhea,Nausea/vomiting 07/08/2019 documented as of this encounter (statuses as of 08/29/2024) Medications Medication Sig Dispensed Refills Start Date End Date Status pyridOXINE (VITAMIN B-6) 100 MG Tablet 1 Tablet. 06/28/2019 Active Vitamin D3 125 MCG (5000 UT) Oral Capsule Take 1 Capsule by mouth in the morning. Active Zinc 25 MG Oral Tablet Take by mouth daily. Active Black [place] Pollen 1:20 Subcutaneous Solution Inject under the [...] the morning. 180 Tablet 3 08/26/2024 Active documented as of this encounter (statuses as of 08/29/2024) Active Problems Problem Noted Date Diagnosed Date HTN, goal below 130/80 04/26/2024 Fatty liver 03/01/2024 Alcoholism, chronic 01/22/2024 Gastroesophageal reflux dise ase with esophagitis without hemorrhage 01/21/2024 Esophageal varices determined by endoscopy 09/09 Celiac disease 06/02/2019 Tobacco use disorder 12/25/2015 documented as of this encounter (statuses as of 08/29/2024) Resolved Problems Problem Noted Date Diagnosed Date Resolved Date History of acute hepatitis 09/09/2019 0 01/21/2024 History of ETOH abuse 07/10/20192023 Deviated nasal septum 05/25/20192023 Recurrent sinus infections 05/25/2019 0 01/21/2024 Mixed rhinitis 12/25/2015 01/21/2024 documented as of this encounter (statuses as of 08/29/2024) Immunizations Name Administration Dates Next Due Diptheria/Tetanus [...] as of this encounter Plan of Treatment Upcoming Encounters Date Type Department Care Team (Late st Contact Info) Description 12/19/2024 8:00 AM EST Imaging Radiology [facility] [address] [facility] [place] [address] Scheduled Procedures Name Priority Associated Diagnoses Date/Ti [...] (FLU shot) (#1) 2024 GFR 02/15/2025 02/16/2024, 03 06/2024, 05/28/2020, Additional history exists Hepatitis C Screening Completed 06/24/2019 HPV (Gardasil) Vaccine Aged Out No lo nger eligible based on patient's age to complete this topic MENINGOCOCCAL (MENACTRA/MENVEO) Aged Out No longer eligible based on patient's age to complete this topic documented as of this encounter Medical Devices Implanted Type Area Flight Test Mechanic Device Identifier Shelf Expiration Date Model / Serial / Lot Lens Intraoc 24.0 - [id number] - [id number] Implanted:Qty: 1 on 02/26/2021 by Manuel Azevedo MD at OR [facility] Right: Eye [employer] 04/15/2024 [id number] / [id number] / [id number] Lens Intraoc 23.5 - [id number] - [id number] Implanted:Qty: 1 on 03/12/2021 by Manuel Azevedo MD at OR [facility] Left: Eye [employer]OM[employer] 09/15/2025 [id number] / [id number] / [id number] documented as of this encounter Care Teams Manager User Interface Relationship Specialty Start Date End Date Misael Vail MD [address] [place] [address] PCP - General Family Medicine 06/01/24 documented as of this encounter
--- OUTSIDE RECORDS SUMMARY | 2025-01-25 02:00 | External Medical Summary | Summary of Care ---
Author Name Unknown Organization [facility] Address [address] [place] [address] Phone [phone] Care Team Providers Care Double End Tenoner Operator Name Role Phone Misael Vail MD Primary Care Provider [phone] Reason for Visit * Reason Comments Acute Patient presents in office today for concern with URI symptoms 10 daysPatient is having discolored mucus (yellowish), PND, productive cough (started 2 days), runny/stuffy nose, slight raspy voice, fatigue.Patient has tried mucinex, Flonase -- no relief Encounter Details Date Type Department Care Team (Late st Contact Info) Description 11/23/2024 9:20 AM EST Office Visit [facility] [address] [facility] [place] [address] Emilee Dunn CRNP [address] [facility] [place] [address] Viral URI with cough*; Exposure to pneumonia; Tobacco use disorder; Esophageal varices determined by endoscopy ([facility]); Alcoholic ([facility]) Allergies Active Allergy Reactions Criticality Noted Date [...] Tablet Take by mouth daily. Active Black [place] Pollen 1:20 Subcutaneous Solution Inject under the [...] 180 Tablet 1 09/09/2024 3:29 PM EDT Active Benzonatate 100 MG Oral Capsule Take 1 Capsule by mouth 3 times a day as needed for Cough. 30 Capsule 1 Active methylPREDNISolo ne 4 MG Oral Tablet Therapy Pack (Medrol Dosepack) follow package directions 21 Tablet Active documented as of this encounter (statuses [...] Sign Reading Time Taken Comments Blood Pressure 106/64 11/23/2024 9:26 AM EST Pulse 93 11/23/2024 9:26 AM EST Temperature 36.4 C (97.6 F) 11/23/2024 9:26 AM ES T Respiratory Rate 16 11/23/2024 9:26 AM EST Oxygen Saturation 96% 11/23/2024 9:26 AM EST Inhaled Oxygen Concentration - - Weight - - Height 172.7 cm (5' 8") 11/23/2024 9:26 AM EST Body Mass Index - - documented in this encounter Progress Notes * Shaun EmileeMELISSA Winslow - 11/23/2024 9:26 AM EST URI Family Medicine Visit CC: Chief Complaint Patient presents with Acute Patient presents in office today for concern with URI symptoms 10 days Patient is having discolored mucus (yellowish), PND, productive cough (started 2 days), runny/stuffy nose, slight raspy voice, fatigue. Patient has tried mucinex, Flonase -- no relief History of Present Illness: Sheyla Melton is a 59 year old female presenting with URI symptoms. These symptoms started on 10 days ago. Mother and friend have bacterial pna. nO HX OF COVID OR FLU VACCINE SHE HAS NOT TESTED FOR COVID OR FLU +fever, t max 99 +chills +sweats +decreased appetite +tolerating fluids +congestion -loss of taste or smell +runny nose +PND +ear pain -sore throat -blurred vision -eye discharge +cough +productive of mucous +sob -wheezing +nausea -diarrhea -constipation -vomiting +body aches -Rash -Sleep disruption Still smoking 1 ppd X45 YEARS Social History Socioeconomic History Marital status: Spouse [...] performed by Andrea Mendez MD at ENDOSCOPY [facility] EGD, FLEXIBLE, DIAGNOSTIC N/A 01/11/2024 grade III esophageal varices/portal hypertensive gastropathy/repeat 3 months/EGD/[place] EGD, FLEXIBLE, DIAGNOSTIC 06/01/2024 scar esophagus/portal hypertensive gastropathy/recall 1 year/ESOPHAGOGASTRODUODENOSCOPY (EGD), FLEXIBLE, TRANSORAL, DIAGNOSTIC performed by John Good MD at ENDOSCOPY [facility] EGD, W/ENDOSCOPIC US 07/13/2019 normal/ESOPHAGOGASTRODUODENOSCOPY (EGD), FLEXIBLE, TRANSORAL, ENDOSCOPIC ULTRASOUND performed by Andrea Mendez MD at END[facility]COPY [facility] MISCELLANEOUS ORDER ([facility] ONLY) 1994 Tubes tied MISCELLANEOUS ORDER ([facility] ONLY) Left 10/13/2018 left eye repair surgery REMOVE CATARACT, INSERT LENS PROSTH Right 02/26/2021 RIGHT EXTRACAPSULAR CATARACT REMOVAL WITH INTRAOCULAR LENS performed by Manuel Azevedo MD at [facility] REMOVE CATARACT, INSERT LENS PROSTH Left 03/12/2021 LEFT EXTRACAPSULAR CATARACT REMOVAL WITH INTRAOCULAR LENS performed by Manuel Azevedo MD at [facility] Current Outpatient Medications Medication Sig Dispense [...] Tablet under the tongue inthe morning. Black [place] Pollen 1:20 Subcutaneous Solution Inject under the [...] evening meals. (Patient not taking: Reported on 11/23/2024) 30 Tablet 1 No current facility-administered medications for this visit. Review of patient's allergies indicates: Allergen Reactions Gluten Abdominal pain Gas, bloating Prednisone Diarrhea and Nausea/vomiting Most Recent Immunizations Administered Date(s) Administered Diptheria/Tetanus (Adult) 11/19/2006 HEP A - Hepatitis A (Adult > 18 yrs) 09/09/2019 Hepatitis B, 20+ yrs 11/28/2019 Physical Exam: Filed Vitals: 11/23/24 0926 BP: 106/64 Pulse: 93 Resp: 16 Temp: 97.6 F (36.4 C) SpO2: 96% Height: 5' 8" (1.727 m) Physical Exam Constitutional: Appearance: She is obese. HENT: Head: Normocephalic. Right Ear: A middle ear effusion is present. Left Ear: A middle ear effusion is present. Nose: Mucosal edema present. Mouth/Throat: Pharynx: Posterior oropharyngeal erythema present. Tonsils: No tonsillar exudate. Cardiovascular: Rate and Rhythm: Normal rate and regular rhythm. Pulmonary: Effort: Pulmonary effort is normal. Breath sounds: Examination of the right-upper field reveals wheezing. Examination of the right-lower field reveals decreased breath sounds. Decreased breath sounds and wheezing present. Musculoskeletal: Cervical back: Normal range of motion. Lymphadenopathy: Cervical: No cervical adenopathy. Neurological: Mental Status: She is alert and oriented to person, place, and time. Psychiatric: Attention and Perception: Attention normal. Mood and Affect: Mood normal. Speech: Speech normal. Behavior: Behavior normal. Behavior is cooperative. Thought Content: Thought content normal. Cognition and Memory: Cognition and memory normal. Judgment: Judgment normal. Assessment and Plan: 1. Viral URI with cough (Primary) Declines viral tesint at this point Recommend supportive care Add prednisone Add tessalon 2. Exposure to pneumonia - XR CHEST 2 VIEWS 3. Tobacco use disorder 45 pack year hx Suspected copd Recommend supportive care including: -Humidifier -Rest -Push fluids -Reviewed pathophysiology of viral URI -Recommend handwashing and covering cough -Reviewed signs and symptoms in which to seek medical care I have advised the patient to call our office incase of any worsening or new symptoms. A total of 25 minutes were spent with the patient, more than half in [id number] explanation and discussion of the condition and treatment and answering questions. Vijay, MSN, MELISSA [facility] documented in this encounter Nursing Notes * Judy Go MED ASSIST - 11/23/2024 9:25 AM EST The patient has been properly identified by confirmation of name and date of . Chief Complaint Patient presents with Acute Patient presents in office today for concern with URI symptoms 10 days Patient is having discolored mucus (yellowish), PND, productive cough (started 2 days), runny/stuffy nose, slight raspy voice, fatigue. Patient has tried mucinex, Flonase -- no relief documented in this encounter Plan of Treatment Upcoming Encounters Date Type Department Care Team (Late st Contact Info) Description 12/19/2024 8:00 AM EST Imaging Radiology [address] [address] Pending Results Name Type Priority Associated Diagnoses Date /Time XR CHEST 2 VIEWS Medical Imaging STAT Exposure to pneumonia 11/23/2024 9:48 AM EST Scheduled Procedures Name Priority Associated Diagnoses Date/Ti [...] this encounter Medical Devices Implanted Type Area Apartment Leasing Specialist Device Identifier Shelf Expiration Date Model / Serial / Lot Lens Intraoc 24.0 - [id number] - [id number] Implanted:Qty: 1 on 02/26/2021 by Manuel Azevedo MD at OR [facility] Right: Eye [employer] 04/15/2024 [id number] / [id number] / [id number] Lens Intraoc 23.5 - [id number] - [id number] Implanted:Qty: 1 on 03/12/2021 by Manuel Azevedo MD at OR [facility] Left: Eye [employer]OM[employer] 09/15/2025 [id number] / [id number] / [id number] documented as of this encounter Visit Diagnoses Diagnosis Viral URI with cough- Primary Acute upper respiratory infections of unspecified site Exposure to pneumonia Contact with or exposure to other viral diseases Tobacco use disorder Esophageal varices determined by endoscopy (HCC) Alcoholic (HCC) Other and unspecified alcohol dependence, unspecified drinking behavior documented in this encounter Care Teams Double End Tenoner Operator Relationship Specialty Start Date End Date Misael Vail MD [address] [place] [address] PCP - General Family Medicine 06/01/24 documented as of this encounter
[2025-01-25] MEDS: ALBUMIN 25% 25 GM/100 ML VIAL IV ONE (02:07)
[2025-01-25] MEDS: MAGNESIUM SULFATE / D5W 1 GM/100 ML BAG IV SCH (02:16)
[2025-01-25] MEDS: NICOTINE 21 MG/24 HR TDSY TD SCH (02:23)
--- NOTE | 2025-01-25 02:30 | XRay Report ---
Exam(s): XR CXR 1 VIEW EXAM: XR Chest, 1 View CLINICAL HISTORY: Reason for exam: vomiting blood. TECHNIQUE: Frontal view of the chest. COMPARISON: Prior chest x-ray from January 10, 2024. FINDINGS: Lungs: Mild to moderate peribronchial thickening of the central and right lower lobe bronchi. No consolidation. Pleural space: Unremarkable. No pneumothorax. Heart: Unremarkable. No cardiomegaly. Mediastinum: Unremarkable. Normal mediastinal contour. Bones/joints: Unremarkable. No acute fracture. IMPRESSION: Bronchitis, which may be infectious or inflammatory disease. No consolidation or pleural effusion. Electronically signed by: Ameena Escalante MD 01/25/25 02:29 AM
--- NOTE | 2025-01-25 04:07 | Ultrasound Report ---
EXAM: US abdomen ltd ascites CLINICAL HISTORY: Abdominal distension, TECHNIQUE: Real-time grayscale and Doppler ultrasound imaging of the abdomen was performed. COMPARISON: CT 06/03/2024. FINDINGS: Liver: Liver size is enlarged in size with heterogeneous and coarse echotexture. Measuring 18.9 cm. Irregular borders as per images. No focal lesions, cysts, or masses were identified. No intrahepatic bile duct dilatation. Spleen: Size: measuring 14.2 cm. Echotexture: Normal No focal lesions or masses were identified. Normal Urinary bladder with no gross intraluminal masses or stones Small free fluid in the abdomen. IMPRESSION: 1. Hepatosplenomegaly. Coarse liver texture. Stable. 2. Small free fluid in the abdomen. New finding. 3. Further assessment and clinical evaluation are advised. Electronically signed by Jesus Garcia 01-25-2025 04:06 AM
[2025-01-25 04:35] LABS: Albumin Globulin Ratio 1.5 (0.9-2); Albumin Level 3.2 gm/dl (3.4-5.0); BUN Creatinine Ratio 22.2 (10-20); Bilirubin,Total 4.7 mg/dl (0.2-1.0); Calcium 7.8 mg/dl (8.6-10.3); Creatinine Clr Calc Pharmacy 111.8 ml/min; Globulin 2.2 gm/dl (2.5-4.0); Potassium 3.2 mmol/L (3.5-5.1); Total Protein 5.4 gm/dl (6.0-8.3)
[2025-01-25 04:43] LABS: INR 2.1 (0.9-1.1)
[2025-01-25 04:54] LABS: Hematocrit (blood only) 20.2 % (37.0-47.0); Hemoglobin 7.5 g/dl (12.0-16.0); Mean Corpuscular Hemoglobin 38.9 pg (25.0-34.0); Mean Corpuscular Hgb Conc 37.1 g/dL (32.0-36.0); Mean Corpuscular Volume 104.7 fL (80.0-100.0); Mean Platelet Volume 12.1 fL (9.4-12.4); Nucleated RBC # (auto) 0.02 K/uL (0.00-0.12); Nucleated RBC % (auto) 0.2 %; Platelet Count 100 K/uL (130-400); RDW Coefficient of Variation 16.9 % (11.5-14.5); Red Blood Count 1.93 M/uL (4.20-5.40); White Blood Count 8.69 K/ul (4.8-10.8)
[2025-01-25] MEDS ORDERED: SODIUM CHLORIDE 0.9% 100 ML IV PRN ×3 (04:57→11:05)
[2025-01-25] MEDS ORDERED: SODIUM CHLORIDE 0.9% 50 ML IV PRN ×3 (04:57→11:05)
[2025-01-25 05:06] LABS: Basophils # (auto) 0.04 K/uL (0.00-0.20); Basophils % (auto) 0.5 %; Eosinophils # (auto) 0.11 K/uL (0.00-0.50); Eosinophils % (auto) 1.3 %; Immature Granulocytes # (auto) 0.08 K/uL (0.01-0.20); Immature Granulocytes % (auto) 0.9 %; Lymphocytes # (auto) 1.67 K/uL (1.20-3.40); Lymphocytes % (auto) 19.2 %; Monocytes # (auto) 1.06 K/uL (0.11-0.59); Monocytes % (auto) 12.2 %; Neutrophils # (auto) 5.73 K/uL (1.40-6.50); Neutrophils % (auto) 65.9 %; Polychromasia 2+; Toxic Vacuolation 1+
[2025-01-25 06:05] LABS: Appearance Urine Clear (Clear); Bilirubin Urine 1+ (Negative); Blood Urine Negative (Negative); Color Urine Dark Yellow; Glucose Urine UA Negative (Negative); Ketones Urine Trace (Negative); Leukocyte Esterase Urine Negative (Negative); Nitrite Urine Negative (Negative); Protein Urine Negative (Negative); Specific Gravity Urine 1.015 (1.000-1.030); Urobilinogen Urine Negative (Negative)
[2025-01-25 07:32] LABS: Adenovirus F 40/41 PCR Not Detected (NotDetected); Astrovirus PCR Not Detected (NotDetected); Campylobacter PCR Not Detected (NotDetected); Cryptosporidium PCR Not Detected (NotDetected); Cyclospora cayetanensis PCR Not Detected (NotDetected); Entamoeba histolytica PCR Not Detected (NotDetected); Enteroaggregative E.coli(EAEC) Not Detected (NotDetected); Enteropathogenic E.coli (EPEC) Not Detected (NotDetected); Enterotoxigenic E.coli (ETEC) Not Detected (NotDetected); Giardia lamblia PCR Not Detected (NotDetected); Norovirus GI/GII PCR Not Detected (NotDetected); Plesiomonas shigelloides PCR Not Detected (NotDetected); Rotavirus A PCR Not Detected (NotDetected); Salmonella PCR Not Detected (NotDetected); Sapovirus PCR Not Detected (NotDetected); Shiga-like Toxin E.coli (STEC) Not Detected (NotDetected); Shigella/Enteroinvasive E.coli Not Detected (NotDetected); Vibrio cholerae PCR Not Detected (NotDetected); Vibrio species PCR Not Detected (NotDetected); Yersinia enterocolitica PCR Not Detected (NotDetected)
[2025-01-25] MEDS: MULTIVITAMIN TAB PO SCH (07:44)
[2025-01-25 07:54] LABS: Hematocrit (blood only) 22.8 % (37.0-47.0); Hemoglobin 8.2 g/dl (12.0-16.0)
[2025-01-25 08:24] LABS: INR 1.7 (0.9-1.1); Prothrombin Time 17.8 Seconds (9.0-12.0)
[2025-01-25 08:34] LABS: Estimated Average Glucose 85 mg/dl; Hemoglobin A1C 4.6 % (4.5-5.6)
--- NOTE | 2025-01-25 09:01 | Anesthesiology Consultation ---
Date of Service January 25, 2025 Assessment & Plan (1) Encounter for pre-operative examination: Chart Review Chart Review: Acceptable Risk for Surgery History Surgery Operation Date: 01/25/25 16:45 Proposed Procedures p Esophagogastroduodenoscopy Lizeth Stanley MD Height/Weight Height: 5 ft 8 in Weight: 67 kg Allergies Allergy/AdvReac Type Severity Reaction Status Date / Time gluten Allergy Unknown Hives Verified 01/24/25 23:50 prednisone AdvReac Intermediate Nausea,vomiting Verified 01/24/25 23:50 and diarrhea Medications Home Medications Medication Instructions Recorded Confirmed Last Taken cholecalciferol (vitamin D3) 125 125 mcg PO QAM 01/24/25 01/24/25 01/24/25 mcg (5,000 unit) tablet (Vitamin D3) pantoprazole 40 mg tablet,delayed 40 mg PO QDD 01/24/25 01/24/25 01/23/25 release Active Medications Generic Name Dose Route Start Last Admin Trade Name Freq PRN Reason Stop Dose Admin Pantoprazole Sodium 40 mg/ 100 mls @ 20 mls/hr 01/24/25 23:30 01/25/25 08:17 Dextrose IV 02/23/25 23:29 8 mg/hr Q5H ZITA 20 mls/hr Administration 8 MG/HR Octreotide Acetate 500 mcg/ 100.5 mls @ 10.05 mls/hr 01/24/25 23:45 01/25/25 08:17 Sodium Chloride IV 02/23/25 23:44 50 mcg/hr .Q10H ZITA 10.1 mls/hr Administration 50 MCG/HR Magnesium Sulfate/Dextrose 1 gm in 100 mls @ 50 mls/hr 01/25/25 02:00 01/25/25 08:06 Magnesium Sulfate / D5w IV 01/25/25 09:59 50 mls/hr Q2H ZITA Administration Miscellaneous 1 each 01/25/25 08:59 01/25/25 08:19 Remove Nicoderm Patch N/A 02/24/25 08:58 1 each DAILY@0859 ZITA Administration Multivitamins 1 tab 01/25/25 09:00 01/25/25 07:44 Multivitamin Tab PO 02/24/25 08:59 1 tab QAM ZITA Administration Nicotine 1 patch 01/25/25 02:00 01/25/25 08:11 Nicotine 21 Mg/24 Hr Tdsy TD 02/24/25 01:59 1 patch QAM ZITA Administration Past Medical History Medical History Portal hypertensive gastropathy Syncope Alcoholic hepatitis Hyperbilirubinemia Prolonged QT interval Alcoholism, chronic Hypomagnesemia Hypokalemia Acute upper gastrointestinal bleeding Hyponatremia Celiac disease Tobacco use Past Family History Family History Other Prostate cancer Stroke Past Surgical History Surgical History H/O eye surgery Social History Smoking Status: Current every day smoker tobacco type: cigarettes Smoking cigarettes per day: 1 pk Do You Dip or Chew Tobacco: No Hx Alcohol Use: Yes Alcohol type: hard liquor alcohol intake frequency: 3 or more drinks per day Alcohol Intake Frequency Comment: pt states last drink was 2.5 weeks ago Hx Substance Use: No substance use type: does not use Physical Exam Vital Signs Last Vital Signs Temp 37.2 C 01/25/25 08:45 Pulse 89 01/25/25 08:45 Resp 16 01/25/25 08:45 BP 90/59 L 01/25/25 08:45 Pulse Ox 91 01/25/25 08:45 O2 Del Method Room Air 01/25/25 01:36 Testing Laboratory Results 01/25/25 07:28 01/25/25 07:28 PT 17.8 Seconds (9.0-12.0) H 01/25/25 07:28 INR 1.7 (0.9-1.1) H 01/25/25 07:28 Hemoglobin A1c 4.6 % (4.5-5.6) 01/24/25 22:15 Urine Color Dark Yellow 01/25/25 05:45 Urine Appearance Clear (Clear) 01/25/25 05:45 Urine pH 6.0 (4.5-7.5) 01/25/25 05:45 Ur Specific [place] 1.015 (1.000-1.030) 01/25/25 05:45 Urine Protein Negative (Negative) 01/25/25 05:45 Urine Glucose (UA) Negative (Negative) 01/25/25 05:45 Urine Ketones Trace (Negative) H 01/25/25 05:45 Urine Nitrite Negative (Negative) 01/25/25 05:45 Ur Leukocyte Esterase Negative (Negative) 01/25/25 05:45 Blood Type A Positive 01/24/25 23:17 Antibody Screen NEGATIVE 01/24/25 23:17 Echocardiogram Date: 01/11/24 LV Function: normal Valvular Disease: + no significant valvular disease
--- NOTE | 2025-01-25 09:44 | Gastrointestinal Consultation ---
Date of Consultation January 25, 2025 Assessment & Plan (1) Hematemesis: 59 year old female with history of hypertension, alcoholic liver disease, esophageal varices, celiac disease, hyperthyroidism as per records, ongoing tobacco/alcohol abuse admitted through the ED with hematemesis and rectal bleeding. In the ED she was started on IV PPI, octreotide and IV ABX as SBP prophylaxis. S/P 1 unit RBCs. No further vomiting since admission but there was report of a bloody BM this AM. BP 89/59, AM repeat HGB pending NPO EGD this AM Continue IV PPI drip Continue Octreotide drip Continue ABX for SBP prophylaxis Trend H&H Monitor and document GI output Tranfuse PRN per primary service ETOH cessation is vital MELD 25 DF: 31.4 MELD labs every 6 months ABD imaging w/ AFP every 6 months EGD every 1-2 years No ETOH No NSAIDs Avoid hepatotoxin Low NA diet, less than 2G daily Less than 2G acetaminophen containing products daily Continue follow up with Dr. Gallego at Hepatology through [facility] We appreciate assistance in the management of any serological abnormality and corrections to include: hemoglobin >7, INR <2, platelets >50,000, potassium levels >3.5 but <5.3, and sodium levels within 5 points of the reference range prior to endoscopic evaluation. Thank you for allowing us to participate in the care of this patient. Please call with any acute changes, questions or concerns. Please see addendum below with additional recommendation from my supervising physician. I spent a total of 60 minutes on the date of service in review of patient's record, and previously obtained information in person and appropriate medical visit, discussion and education of plan, with patient and/or caregiver, placing orders for tests/referral/procedures as medically necessary and documentation of pertinent clinical information in patient's medical records for their visit today. Supervising Physician Co-Signing Physician Notes I personally saw and examined the patient. I have reviewed the chart and agree with the documentation provided by the SUGAR CHIPPER MACHINE OPERATOR including discussion about the assessment, treatment and plan. Briefly, 59 year old female with history of hypertension, alcoholic liver disease, esophageal varices status post EVL multiple times with eradication in 06/08, celiac disease, hyperthyroidism as per records, ongoing tobacco/alcohol abuse admitted through the ED with hematemesis and rectal bleeding. Pt was seen and evaluated, chart reviewed. She notes she continued to drink ETOH daily. Last drink was yesterday prior to arrival. Is not able to tell me how much she drinks. Ultrasound with trace amount of ascites coarsened liver and no obvious masses. MELD is 25 and [facility]'s discrimination function is 31.4. At this point she needs an EGD to eval for portal hypertensive gastropathy greater than varices. Continue the octreotide PPI and ceftriaxone. Hemoglobin is dropped to 7.5 with about a 3 g drop. Rarely needs AA and etoh rehab. History of Present Illness Reason for Consultation: GI bleeding Requesting Physician: Sammi Ortiz MD Attending Physician: Sammi Ortiz MD History of Present Illness 59 year old female with history of hypertension, alcoholic liver disease, esophageal varices, celiac disease, hyperthyroidism as per records, ongoing tobacco/alcohol abuse admitted through the ED with hematemesis and rectal bleeding. Pt was seen and evaluated, chart reviewed. She notes she continued to drink ETOH daily. Last drink was yesterday prior to arrival. Is not able to tell me how much she drinks.She follows with Dr. Gallego of Hepatology at [facility]. She was prescribed Coreg twice daily at her last appt. In the ED she was started on IV PPI, octreotide and IV ABX as SBP prophylaxis. MELD 25 DF: 31.4 points Good prognosis Discriminant Function >32 points indicates poor prognosis and patient may benefit from glucocorticoid therapy ABD US 2024: Hepatosplenomegaly. Coarse liver texture. Stable. Small free fluid in the abdomen. New finding. . Further assessment and clinical evaluation are advised. EGD 05/2024: Scar in the lower third of the esophagus. No residual varices seen. - Portal hypertensive gastropathy. - Normal duodenal bulb and second portion of the duodenum. - No specimens collected. Allergies Allergy/AdvReac Type Severity Reaction Status Date / Time gluten Allergy Unknown Hives Verified 01/24/25 23:50 prednisone AdvReac Intermediate Nausea,vomiting Verified 01/24/25 23:50 and diarrhea Home Medications Medication Instructions Recorded Confirmed Type cholecalciferol (vitamin D3) 125 125 mcg PO QAM 01/24/25 01/24/25 History mcg (5,000 unit) tablet (Vitamin D3) pantoprazole 40 mg tablet,delayed 40 mg PO QDD 01/24/25 01/24/25 History release Patient History Medical History Portal hypertensive gastropathy Syncope Alcoholic hepatitis Hyperbilirubinemia Prolonged QT interval Alcoholism, chronic Hypomagnesemia Hypokalemia Acute upper gastrointestinal bleeding Hyponatremia Celiac disease Tobacco use Surgical History H/O eye surgery Family History Other Prostate cancer Stroke Social History Smoking Status: Current every day smoker Tobacco Type: Cigarettes Cigarettes Per Day: 1 pk; Second Hand Exposure: Yes; Do You Dip or Chew Tobacco: No; Tobacco Cessation Education Requested by Patient: No Hx Alcohol Use: Yes Alcohol type: hard liquor Alcohol type Comment: h/o heavy vodka intake, stopped drinking 3 weeks ago Hx Substance Use: No Preferred Language: Nepali Communication Ability: Effective Awning Spreader Required: No Beliefs That Will Affect Care: None marital status: Single Current Living Situation: Spouse Current Living Situation Comment: T[employer]ez current occupational status: unemployed Other Information That Helps Us Care for You: No Feels Safe at Home: Yes Safety Concerns: Feels Safe At This Time Assistive Devices: Glasses Review of Systems Review of Systems: All other findings negative except as noted in HPI. Physical Exam Constitutional: WD/WN, vitals as above Respiratory: normal respiratory effort Cardiovascular: Rate/Rhythm: regular rate Gastrointestinal (Abdomen): Inspection/Auscultation: abdomen normal to inspection and normal bowel sounds Skin: no rashes, warm and dry Results & Data Vital Signs (Past 12 Hours) Vital Signs Temp Pulse Pulse Resp BP BP Pulse Ox 01/25/25 09:22 99.5 F 88 16 89/59 L 92 01/25/25 08:45 99.0 F 89 16 90/59 L 91 01/25/25 08:30 98.8 F 90 20 94/60 L 92 01/25/25 08:25 99.1 F 90 16 97/63 L 94 01/25/25 08:14 98.6 F 92 H 16 91/60 L 91 01/25/25 07:27 98.2 F 90 18 99/65 L 92 01/25/25 06:17 98.8 F 88 16 100/65 92 01/25/25 05:47 98.6 F 86 16 99/65 L 01/25/25 05:30 98.1 F 97 H 14 100/64 94 01/25/25 05:13 98.6 F 91 H 14 92/60 L 90 01/25/25 01:56 109 H 01/25/25 01:36 98.6 F 97 H 18 99/63 L 01/25/25 01:00 103 H 15 102/74 97 01/25/25 00:51 102 H 19 95 01/25/25 00:45 97 H 14 97 01/25/25 00:27 99 H 15 110/70 93 01/25/25 00:06 96 H 18 97 01/24/25 23:48 84 19 111/68 98 01/24/25 23:30 94 H 22 105/67 01/24/25 23:15 106 H 16 101/59 L 97 01/24/25 23:11 115 H 17 95 01/24/25 23:03 105 H 15 91/65 L 95 01/24/25 22:15 119 H 01/24/25 22:01 98.1 F 118 H 16 84/61 L 98 O2 Del Method 01/25/25 09:22 01/25/25 08:45 01/25/25 08:30 01/25/25 08:25 01/25/25 08:14 01/25/25 07:27 01/25/25 06:17 01/25/25 05:47 01/25/25 05:30 01/25/25 05:13 01/25/25 01:56 01/25/25 01:36 Room Air 01/25/25 01:00 01/25/25 00:51 01/25/25 00:45 01/25/25 00:27 01/25/25 00:06 01/24/25 23:48 01/24/25 23:30 01/24/25 23:15 01/24/25 23:11 Room Air 01/24/25 23:03 01/24/25 22:15 01/24/25 22:01 Room Air Laboratory Results 01/25/25 01/25/25 01/25/25 Range/Units 09:09 07:28 05:45 WBC (4.8-10.8) K/ul RBC (4.20-5.40) M/uL Hgb Pending 8.2 L (12.0-16.0) g/dl Hct Pending 22.8 L (37.0-47.0) % MCV (80.0-100.0) fL MCH (25.0-34.0) pg MCHC (32.0-36.0) g/dL RDW Std Deviation (36.4-46.3) fL RDW Coeff of Car (11.5-14.5) % Plt Count (130-400) K/uL MPV (9.4-12.4) fL Immature Gran % (Auto) % Neut % (Auto) % Lymph % (Auto) % Davie % (Auto) % Eos % (Auto) % Baso % (Auto) % Neut # (Auto) (1.40-6.50) K/uL Lymph # (Auto) (1.20-3.40) K/uL Davie # (Auto) (0.11-0.59) K/uL Eos # (Auto) (0.00-0.50) K/uL Baso # (Auto) (0.00-0.20) K/uL Immature Gran # (Auto) (0.01-0.20) K/uL Absolute Nucleated RBC (0.00-0.12) K/uL Nucleated RBC % (auto) % Toxic Vacuolation Polychromasia PT 17.8 H (9.0-12.0) Seconds INR 1.7 H (0.9-1.1) Sodium 128 L (136-145) mmol/L Potassium (3.5-5.1) mmol/L Chloride (98-107) mmol/L Carbon Dioxide (21-32) mmol/L Anion Gap (3-11) BUN (6-23) mg/dl Creatinine (0.6-1.2) mg/dl Est Cr Clr Drug Dosing ml/min eGFR BUN/Creatinine Ratio (10-20) Glucose (70-99(Fasting)) mg/dl Estimat Average Glucose mg/dl Hemoglobin A1c (4.5-5.6) % Osmolality (280-300) mOsm/kg Lactate 1.5 (0.4-2.0) mmol/L Calcium (8.6-10.3) mg/dl Magnesium (1.7-2.4) mg/dl Total Bilirubin (0.2-1.0) mg/dl AST (13-39) U/L ALT (7-52) U/L Alkaline Phosphatase (34-104) U/L Ammonia (18-72) umol/L Total Protein (6.0-8.3) gm/dl Albumin (3.4-5.0) gm/dl Globulin (2.5-4.0) gm/dl Albumin/Globulin Ratio (0.9-2) TSH (0.300-4.500) uIu/ml Urine Color Dark Yellow Urine Appearance Clear (Clear) Urine pH 6.0 (4.5-7.5) Ur Specific Gladwin 1.015 (1.000-1.030) Urine Protein Negative (Negative) Urine Glucose (UA) Negative (Negative) Urine Ketones Trace H (Negative) Urine Blood Negative (Negative) Urine Nitrite Negative (Negative) Urine Bilirubin 1+ H (Negative) Urine Urobilinogen Negative (Negative) Ur Leukocyte Esterase Negative (Negative) Urine Osmolality 364 L (500-800) mOsm/kg Ur Random Sodium 12 mmol/L Stl C. cayetanensis PCR Not Detected (NotDetected) Stool Rotavirus A PCR Not Detected (NotDetected) Stl Adenov F 40/41 PCR Not Detected (NotDetected) Stool Astrovirus (PCR) Not Detected (NotDetected) Stool Campylobacter PCR Not Detected (NotDetected) Stl C. diff Tox B Gene Pending Stool Cryptosporidium PCR Not Detected (NotDetected) Stl E.coli Shiga Tox PCR Not Detected (NotDetected) Stl Enterotoxigenic E PCR Not Detected (NotDetected) Stool EPEC (PCR) Not Detected (NotDetected) Stool EAEC (PCR) Not Detected (NotDetected) Stl E. histolytica PCR Not Detected (NotDetected) Stool Giardia Lamblia PCR Not Detected (NotDetected) Stool Salmonella PCR Not Detected (NotDetected) Stool Sapovirus (PCR) Not Detected (NotDetected) Stl P. shigelloides PCR Not Detected (NotDetected) Stl Shigella/EIEC PCR Not Detected (NotDetected) St Y.enterocolitica PCR Not Detected (NotDetected) Stool Vibrio (PCR) Not Detected (NotDetected) Stl Vibrio cholerae PCR Not Detected (NotDetected) Stl Norovirus GI/GII PCR Not Detected (NotDetected) Ethyl Alcohol mg/dL (<10.0) mg/dl Blood Type Antibody Screen Crossmatch 01/25/25 01/25/25 01/24/25 Range/Units 04:00 00:54 23:17 WBC 8.69 (4.8-10.8) K/ul RBC 1.93 L (4.20-5.40) M/uL Hgb 7.5 L D (12.0-16.0) g/dl Hct 20.2 L* (37.0-47.0) % MCV 104.7 H (80.0-100.0) fL MCH 38.9 H (25.0-34.0) pg MCHC 37.1 H (32.0-36.0) g/dL RDW Std Deviation 64.0 H (36.4-46.3) fL RDW Coeff of Car 16.9 H (11.5-14.5) % Plt Count 100 L (130-400) K/uL MPV 12.1 (9.4-12.4) fL Immature Gran % (Auto) 0.9 % Neut % (Auto) 65.9 % Lymph % (Auto) 19.2 % Davie % (Auto) 12.2 % Eos % (Auto) 1.3 % Baso % (Auto) 0.5 % Neut # (Auto) 5.73 (1.40-6.50) K/uL Lymph # (Auto) 1.67 (1.20-3.40) K/uL Davie # (Auto) 1.06 H (0.11-0.59) K/uL Eos # (Auto) 0.11 (0.00-0.50) K/uL Baso # (Auto) 0.04 (0.00-0.20) K/uL Immature Gran # (Auto) 0.08 (0.01-0.20) K/uL Absolute Nucleated RBC 0.02 (0.00-0.12) K/uL Nucleated RBC % (auto) 0.2 % Toxic Vacuolation 1+ Polychromasia 2+ PT 21.0 H (9.0-12.0) Seconds INR 2.1 H (0.9-1.1) Sodium 127 L 126 L (136-145) mmol/L Potassium 3.2 L (3.5-5.1) mmol/L Chloride 92 L (98-107) mmol/L Carbon Dioxide 23 (21-32) mmol/L Anion Gap 12 H (3-11) BUN 12 (6-23) mg/dl Creatinine 0.54 L (0.6-1.2) mg/dl Est Cr Clr Drug Dosing 111.8 ml/min eGFR 105.33 BUN/Creatinine Ratio 22.2 H (10-20) Glucose 143 H (70-99(Fasting)) mg/dl Estimat Average Glucose mg/dl Hemoglobin A1c (4.5-5.6) % Osmolality (280-300) mOsm/kg Lactate 2.3 H* 2.6 H* (0.4-2.0) mmol/L Calcium 7.8 L (8.6-10.3) mg/dl Magnesium 1.1 L (1.7-2.4) mg/dl Total Bilirubin 4.7 H (0.2-1.0) mg/dl AST 53 H (13-39) U/L ALT 21 (7-52) U/L Alkaline Phosphatase 121 H (34-104) U/L Ammonia 84.0 H (18-72) umol/L Total Protein 5.4 L D (6.0-8.3) gm/dl Albumin 3.2 L (3.4-5.0) gm/dl Globulin 2.2 L (2.5-4.0) gm/dl Albumin/Globulin Ratio 1.5 (0.9-2) TSH 2.541 (0.300-4.500) uIu/ml Urine Color Urine Appearance (Clear) Urine pH (4.5-7.5) Ur Specific Gladwin (1.000-1.030) Urine Protein (Negative) Urine Glucose (UA) (Negative) Urine Ketones (Negative) Urine Blood (Negative) Urine Nitrite (Negative) Urine Bilirubin (Negative) Urine Urobilinogen (Negative) Ur Leukocyte Esterase (Negative) Urine Osmolality (500-800) mOsm/kg Ur Random Sodium mmol/L Stl C. cayetanensis PCR (NotDetected) Stool Rotavirus A PCR (NotDetected) Stl Adenov F 40/41 PCR (NotDetected) Stool Astrovirus (PCR) (NotDetected) Stool Campylobacter PCR (NotDetected) Stl C. diff Tox B Gene Stool Cryptosporidium PCR (NotDetected) Stl E.coli Shiga Tox PCR (NotDetected) Stl Enterotoxigenic E PCR (NotDetected) Stool EPEC (PCR) (NotDetected) Stool EAEC (PCR) (NotDetected) Stl E. histolytica PCR (NotDetected) Stool Giardia Lamblia PCR (NotDetected) Stool Salmonella PCR (NotDetected) Stool Sapovirus (PCR) (NotDetected) Stl P. shigelloides PCR (NotDetected) Stl Shigella/EIEC PCR (NotDetected) St Y.enterocolitica PCR (NotDetected) Stool Vibrio (PCR) (NotDetected) Stl Vibrio cholerae PCR (NotDetected) Stl Norovirus GI/GII PCR (NotDetected) Ethyl Alcohol mg/dL < 10.0 (<10.0) mg/dl Blood Type A Positive Antibody Screen NEGATIVE Crossmatch See Detail 01/24/25 Range/Units 22:15 WBC 13.87 H (4.8-10.8) K/ul RBC 3.08 L (4.20-5.40) M/uL Hgb 11.9 L (12.0-16.0) g/dl Hct 32.2 L (37.0-47.0) % MCV 104.5 H (80.0-100.0) fL MCH 38.6 H (25.0-34.0) pg MCHC 37.0 H (32.0-36.0) g/dL RDW Std Deviation 65.3 H (36.4-46.3) fL RDW Coeff of Car 17.2 H (11.5-14.5) % Plt Count 176 (130-400) K/uL MPV 12.5 H (9.4-12.4) fL Immature Gran % (Auto) 1.1 % Neut % (Auto) 69.3 % Lymph % (Auto) 17.7 % Davie % (Auto) 10.9 % Eos % (Auto) 0.5 % Baso % (Auto) 0.5 % Neut # (Auto) 9.62 H (1.40-6.50) K/uL Lymph # (Auto) 2.45 (1.20-3.40) K/uL Davie # (Auto) 1.51 H (0.11-0.59) K/uL Eos # (Auto) 0.07 (0.00-0.50) K/uL Baso # (Auto) 0.07 (0.00-0.20) K/uL Immature Gran # (Auto) 0.15 (0.01-0.20) K/uL Absolute Nucleated RBC 0.06 (0.00-0.12) K/uL Nucleated RBC % (auto) 0.4 % Toxic Vacuolation Polychromasia PT 18.8 H (9.0-12.0) Seconds INR 1.8 H (0.9-1.1) Sodium 126 L (136-145) mmol/L Potassium 3.1 L (3.5-5.1) mmol/L Chloride 91 L (98-107) mmol/L Carbon Dioxide 24 (21-32) mmol/L Anion Gap 11 (3-11) BUN 11 (6-23) mg/dl Creatinine 0.62 (0.6-1.2) mg/dl Est Cr Clr Drug Dosing 93.8 ml/min eGFR 101.89 BUN/Creatinine Ratio 17.7 (10-20) Glucose 123 H (70-99(Fasting)) mg/dl Estimat Average Glucose 85 mg/dl Hemoglobin A1c 4.6 (4.5-5.6) % Osmolality 267 L (280-300) mOsm/kg Lactate (0.4-2.0) mmol/L Calcium 9.0 (8.6-10.3) mg/dl Magnesium (1.7-2.4) mg/dl Total Bilirubin 6.6 H (0.2-1.0) mg/dl AST 85 H (13-39) U/L ALT 36 (7-52) U/L Alkaline Phosphatase 186 H (34-104) U/L Ammonia (18-72) umol/L Total Protein 7.3 (6.0-8.3) gm/dl Albumin 3.9 (3.4-5.0) gm/dl Globulin 3.4 (2.5-4.0) gm/dl Albumin/Globulin Ratio 1.1 (0.9-2) TSH (0.300-4.500) uIu/ml Urine Color Urine Appearance (Clear) Urine pH (4.5-7.5) Ur Specific Gladwin (1.000-1.030) Urine Protein (Negative) Urine Glucose (UA) (Negative) Urine Ketones (Negative) Urine Blood (Negative) Urine Nitrite (Negative) Urine Bilirubin (Negative) Urine Urobilinogen (Negative) Ur Leukocyte Esterase (Negative) Urine Osmolality (500-800) mOsm/kg Ur Random Sodium mmol/L Stl C. cayetanensis PCR (NotDetected) Stool Rotavirus A PCR (NotDetected) Stl Adenov F 40/41 PCR (NotDetected) Stool Astrovirus (PCR) (NotDetected) Stool Campylobacter PCR (NotDetected) Stl C. diff Tox B Gene Stool Cryptosporidium PCR (NotDetected) Stl E.coli Shiga Tox PCR (NotDetected) Stl Enterotoxigenic E PCR (NotDetected) Stool EPEC (PCR) (NotDetected) Stool EAEC (PCR) (NotDetected) Stl E. histolytica PCR (NotDetected) Stool Giardia Lamblia PCR (NotDetected) Stool Salmonella PCR (NotDetected) Stool Sapovirus (PCR) (NotDetected) Stl P. shigelloides PCR (NotDetected) Stl Shigella/EIEC PCR (NotDetected) St Y.enterocolitica PCR (NotDetected) Stool Vibrio (PCR) (NotDetected) Stl Vibrio cholerae PCR (NotDetected) Stl Norovirus GI/GII PCR (NotDetected) Ethyl Alcohol mg/dL (<10.0) mg/dl Blood Type Antibody Screen Crossmatch PG Care Time/CCT Total # of Minutes Spent Total Time Spent with Patient: Total time spent is greater than 50% in coordination of care (as documented) at patient's floor/unit and/or counseling patient: Coding Level of Care Code 29811 IN/OBS CONSULT LVL 4,60M Diagnoses Hematemesis K92.0
[2025-01-25 11:03] LABS: Hematocrit (blood only) 20.4 % (37.0-47.0); Hemoglobin 7.5 g/dl (12.0-16.0)
[2025-01-25] MEDS: NSS + 20MEQ KCL 20 MEQ/1,000 ML BAG IV ONE (11:15)
[2025-01-25] MEDS: ACETAMINOPHEN 325 MG TAB ONE (11:15)
--- NOTE | 2025-01-25 11:38 | Hospitalist Progress Note ---
Date of Service January 25, 2025 Assessment & Plan (1) Hypotension: Plan: 59 yo F w/ PMH of hypertension, alcoholic liver disease, esophageal varices, celiac disease, hyperthyroidism, ongoing tobacco/alcohol abuse presents to the ED w/ an episode of hematemesis/coffee-ground emesis a/w passage of dark blood clots per rectum. Reported abdominal distension but no pain. Denies chest pain or sob or intake of OTC NSAID. Of note, last confinement May 2024 for portal hypertensive gastropathy presenting as hematemesis. EGD showed scar in the lower third of esophagus. No residual varices. Patient discharged with PPI Rx. Also pt appears to have been recently treated for UTI as OP w/ Bactrim course. No outpatient urine CS done. She is being managed for the following: GI bleed, likely both UGI and LGI Hypotension: likely 2/2 GI bleed, no s/s symptoms of infection so far. History esophageal varices Coagulopathy from liver disease: s/p 10 mg iv vit k at presentation Small ascites: per US abd finding, non tender on exam. likely iso chronic liver disease. Patient had episode of hematemesis/coffee-ground emesis associated with passage of dark blood clots per rectum [employer] Abdomen distended more than usual although not painful as per patient. Denies chest pain, SOB. Denies OTC NSAID intake. Per Pt, she drank some alcohol on the day of presentation after being off for a number of weeks. SBP 80s upon arrival at the ER. Per RN, pt had bright red blood per rectum during BM on 3/12 AM. Stool pcr neg, c diff pending. C/w NPO, IV Protonix, octreotide infusion, IV ceftriaxone for SBP prophylaxis in a cirrhotic patient presenting with UGIB Avoid NSAIDs, Advised against use of alcohol in future. Limit tylenol <2g per day given underlying liver dz. GI on board: plan for scope today. f/u w/ hepatology as OP. Other recs are : MELD labs every 6 months. ABD imaging w/ AFP every 6 months. EGD every 1-2 years Monitor HnH, transfuse for Hb < 8 and/or symptomatic anemia. s/p IVF and blood transfusion, BP holding up low normal. F/u admitting blood culture. Hypokalemia secondary to emesis, monitor and replete. Hypomagnesemia: Mg of 1.1 today, s/p 4 mg iv mag, repeat BMP, HnH, Mg level at 4 pm. Hyponatremia: Baseline Na level appears to be low 130s to low normal. Admitting Na of 126, gradually improving to 128 today. When able allow low Na diet and increase protein content in diet. Serum Na 127, Serum Osm 267, Urine Na 12, Urine Osm 364. Likely hyptonic hypovolemic Hypo Na iso vomiting. Monitor BMP 4 pm, if worsening consider nephro consult. Alcoholic hepatitis, poor prognosis based on computed Maddrey's DF score of 37.9 points at presentation, GI on board, will follow recs. SEDA S at risk protocol, DT precautions Other chronic medical conditions: Continue with/resume home meds as and when able. hyperthyroidism as per records, patient euthyroid, currently not on maintenance medications Hyperglycemia ruled out DM. a1c 4.6 ongoing tobacco/alcohol abuse. strongly counselled against tobacco/alcohol use. Nicotine patch DVT prophylaxis. SCDs Re: UGIB Full code Text document was generated using [employer] voice recognition software. It may contain grammatical or spelling errors. Kindly contact undersigned for clarification of any documentation item in question. Admission and Anticipated Discharge Date Admission Date: January 24, 2025 Subjective Patient was seen and examined at bedside. Patient was lying in bed, on room air, NAD, resting comfortably. Patient denies any sore throat/cough/chest pain/abdominal pain/pain or burning while passing urine. Per RN, patient had bowel movement today with bright red blood per rectum. Patient denies further vomiting in the hospital. Patient is n.p.o. for scope today. Physical Exam Physical Exam: GENERAL: NAD, no respiratory distress SKIN: Pallor, warm HEENT: Bespectacled, pale palpebral conjunctivae, no ptosis, dry buccal mucosa NECK : Supple, no tenderness CHEST : Decreased breath sounds, no tenderness HEART : RRR, HR in 80-90s, no obvious murmurs ABDOMEN: Some distention, nontender EXTREMITIES : No LE swelling/tenderness, no other conspicuous deformities noted NEUROLOGIC : Coherent, no facial asymmetry, no other gross focality Results & Data Results & Data Vital Signs (Past 12 Hours) Vital Signs Temp Pulse Pulse Resp BP BP Pulse Ox 01/25/25 11:04 37.6 C H 90 18 102/74 91 01/25/25 09:22 37.5 C 88 16 89/59 L 92 01/25/25 09:00 89 01/25/25 08:45 37.2 C 89 16 90/59 L 91 01/25/25 08:30 37.1 C 90 20 94/60 L 92 01/25/25 08:25 37.3 C 90 16 97/63 L 94 01/25/25 08:14 37 C 92 H 16 91/60 L 91 01/25/25 07:27 36.8 C 90 18 99/65 L 92 01/25/25 06:17 37.1 C 88 16 100/65 92 01/25/25 05:47 37 C 86 16 99/65 L 01/25/25 05:30 36.7 C 97 H 14 100/64 94 01/25/25 05:13 37 C 91 H 14 92/60 L 90 01/25/25 01:56 109 H 01/25/25 01:36 37.0 C 97 H 18 99/63 L 01/25/25 01:00 103 H 15 102/74 97 01/25/25 00:51 102 H 19 95 01/25/25 00:45 97 H 14 97 01/25/25 00:27 99 H 15 110/70 93 01/25/25 00:06 96 H 18 97 01/24/25 23:48 84 19 111/68 98 01/24/25 23:30 94 H 22 105/67 O2 Del Method 01/25/25 11:04 Room Air 01/25/25 09:22 01/25/25 09:00 01/25/25 08:45 01/25/25 08:30 01/25/25 08:25 01/25/25 08:14 01/25/25 07:27 01/25/25 06:17 01/25/25 05:47 01/25/25 05:30 01/25/25 05:13 01/25/25 01:56 01/25/25 01:36 Room Air 01/25/25 01:00 01/25/25 00:51 01/25/25 00:45 01/25/25 00:27 01/25/25 00:06 01/24/25 23:48 01/24/25 23:30
[2025-01-25] MEDS ORDERED: CALCIUM CHLORIDE 10% 10 ML SYR IV ONE (11:57)
--- NOTE | 2025-01-25 12:39 | GI REPORT ---
[facility] Patient: TRENT ROJO : 1965 Sex at : Female Age: 59 Years Procedure: Upper GI endoscopy Date: 01/25/2025 Attending Physician: Gabe Stanley MD Referring MD: Referred Self Indications: - Recent gastrointestinal bleeding - Suspected upper gastrointestinal bleeding - Melena Medications: - Monitored Anesthesia Care Complications: - No immediate complications. Estimated Blood Loss: - Estimated blood loss was minimal. Procedure: - Prior to the procedure, a History and Physical was performed, and patient medications and allergies were reviewed. The patient's tolerance of previous anesthesia was also reviewed. The risks and benefits of the procedure and the sedation options and risks were discussed with the patient. All questions were answered, and informed consent was obtained. Prior Anticoagulants: The patient has taken no anticoagulant or antiplatelet agents. ASA Grade Assessment: III - A patient with severe systemic disease. After reviewing the risks and benefits, the patient was deemed in satisfactory condition to undergo the procedure. - The egd scope was introduced through the mouth and advanced to the third part of the duodenum. - The upper GI endoscopy was accomplished without difficulty. - The patient tolerated the procedure well. Findings: - Grade II varices were found in the lower third of the esophagus. They were medium in size. Two bands were successfully placed with complete eradication, resulting in deflation of varices. There was no bleeding during the procedure. - Severe portal hypertensive gastropathy was found in the entire examined stomach. With air insufflation and just touching the stomach there was slight oozing. She has moderately severe portal hypertensive gastropathy from chronic alcohol abuse and that is also likely contributing to her anemia and bleeding - The examined duodenum was normal. Impression: - Grade II esophageal varices. Completely eradicated. Banded. - Portal hypertensive gastropathy. - With air insufflation and just touching the stomach there was slight oozing. She has moderately severe portal hypertensive gastropathy from chronic alcohol abuse and that is also likely contributing to her anemia and bleeding - Normal examined duodenum. - No specimens collected. Recommendation: - Discharge patient to home (ambulatory). - Resume previous diet. - Continue present medications. - Await pathology results. - Return to primary care physician as previously scheduled. - Patient has a contact number available for emergencies. The signs and symptoms of potential delayed complications were discussed with the patient. Return to normal activities tomorrow. Written discharge instructions were provided to the patient. - Can take pantoprazole twice daily IV. She needs octreotide IV continuous drip till tomorrow. We can start with clear liquid diet today. This is all a consequence of her persistent alcohol abuse. We need her to get to a rehab of both Procedure Code(s): - 20618, Esophagogastroduodenoscopy, flexible, transoral; with band ligation of esophageal/gastric varices Diagnosis Code(s): - K92.2, Gastrointestinal hemorrhage, unspecified - K92.1, Melena (includes Hematochezia) - I85.00, Esophageal varices without bleeding - K76.6, Portal hypertension - K31.89, Other diseases of stomach and duodenum CPT(R) - 2023 copyright [employer]. All Rights Reserved. The CPT codes, CCI edits and ICD codes generated are intended as suggestions and were generated based on input data. These codes are preliminary and upon business analyst project manager review may be revised to meet current compliance and payer requirements. The provider is responsible for the final determination of appropriate codes, and modifiers. Gabe Stanley MD This document has been electronically signed. Note Initiated:01/25/2025 Note Completed:01/25/2025 12:38 PM [id number]
[2025-01-25 12:46] LABS: Cdiff Toxin B Gene (2yr or >) Positive Cdiff Gene (Neg)
--- NOTE | 2025-01-25 13:08 | Anesthesiology Progress Note ---
Date of Service January 25, 2025 Anesthesia Post Procedure Vital Signs Vital Signs: Temp Pulse Pulse Resp BP BP Pulse Ox 01/25/25 12:50 87 16 94/54 L 92 01/25/25 12:36 85 16 80/46 L 95 01/25/25 12:07 37.6 C H 88 14 89/54 L 92 01/25/25 11:40 37.5 C 93 H 16 93/66 L 92 01/25/25 11:04 37.6 C H 90 18 102/74 91 01/25/25 09:22 37.5 C 88 16 89/59 L 92 01/25/25 09:00 89 01/25/25 08:45 37.2 C 89 16 90/59 L 91 01/25/25 08:30 37.1 C 90 20 94/60 L 92 01/25/25 08:25 37.3 C 90 16 97/63 L 94 01/25/25 08:14 37 C 92 H 16 91/60 L 91 01/25/25 07:27 36.8 C 90 18 99/65 L 92 01/25/25 06:17 37.1 C 88 16 100/65 92 01/25/25 05:47 37 C 86 16 99/65 L 01/25/25 05:30 36.7 C 97 H 14 100/64 94 01/25/25 05:13 37 C 91 H 14 92/60 L 90 01/25/25 01:56 109 H 01/25/25 01:36 37.0 C 97 H 18 99/63 L 01/25/25 01:00 103 H 15 102/74 97 01/25/25 00:51 102 H 19 95 01/25/25 00:45 97 H 14 97 01/25/25 00:27 99 H 15 110/70 93 01/25/25 00:06 96 H 18 97 01/24/25 23:48 84 19 111/68 98 01/24/25 23:30 94 H 22 105/67 01/24/25 23:15 106 H 16 101/59 L 97 01/24/25 23:11 115 H 17 95 01/24/25 23:03 105 H 15 91/65 L 95 01/24/25 22:15 119 H 01/24/25 22:01 36.7 C 118 H 16 84/61 L 98 O2 Del Method 01/25/25 12:50 Room Air 01/25/25 12:36 Room Air 01/25/25 12:07 Room Air 01/25/25 11:40 01/25/25 11:04 Room Air 01/25/25 09:22 01/25/25 09:00 01/25/25 08:45 01/25/25 08:30 01/25/25 08:25 01/25/25 08:14 01/25/25 07:27 01/25/25 06:17 01/25/25 05:47 01/25/25 05:30 01/25/25 05:13 01/25/25 01:56 01/25/25 01:36 Room Air 01/25/25 01:00 01/25/25 00:51 01/25/25 00:45 01/25/25 00:27 01/25/25 00:06 01/24/25 23:48 01/24/25 23:30 01/24/25 23:15 01/24/25 23:11 Room Air 01/24/25 23:03 01/24/25 22:15 01/24/25 22:01 Room Air Transfer of Care Handoff Completed per policy Notes Mental Status: alert / awake / arousable Patient Amnestic to Procedure: Yes Nausea / Vomiting: adequately controlled Pain: adequately controlled Airway Patency, RR, SpO2: stable & adequate BP & HR: stable & adequate Hydration State: stable & adequate Anesthetic Complications: no major complications apparent
[2025-01-25 13:30] LABS: Cdiff Antigen Positive; Cdiff Toxin A+B Negative Cdiff Toxin (Negative)
[2025-01-25] MEDS: LIDOCAINE 2% 2 ML VIAL/AMP(20MG/ML) INFIL ONE ×2 (13:46)
[2025-01-25] MEDS: PROPOFOL IV EMULSION 10 MG/ML 20 ML VIAL IV ONE (13:46)
[2025-01-25] MEDS: PHENYLEPHRINE 100MCG/ML 5ML SYR ONE (13:46)
[2025-01-25 16:12] LABS: Hematocrit (blood only) 25.7 % (37.0-47.0); Hemoglobin 9.2 g/dl (12.0-16.0)
[2025-01-25 16:30] LABS: BUN Creatinine Ratio 15.4 (10-20); Calcium 8.1 mg/dl (8.6-10.3); Creatinine Clr Calc Pharmacy 92.8 ml/min; Magnesium 2.1 mg/dl (1.7-2.4); Potassium 3.9 mmol/L (3.5-5.1)
[2025-01-25] MEDS: PANTOprazole 40 MG TAB PO SCH (20:55)
[2025-01-25 22:57] LABS: Hematocrit (blood only) 24.3 % (37.0-47.0); Hemoglobin 8.6 g/dl (12.0-16.0)
[2025-01-25] MEDS: cefTRIAXone SODIUM 2,000 MG/50 ML BAG IV SCH (23:07)
[2025-01-25] MEDS: ACETAMINOPHEN 325 MG TAB PO PRN (23:18)
--- NOTE | 2025-01-26 06:01 | Electrocardiogram Report ---
Test Reason : Blood Pressure : */* mmHG Vent. Rate : 116 BPM Atrial Rate : 116 BPM P-R Int : 144 ms QRS Dur : 72 ms QT Int : 350 ms P-R-T Axes : 66 20 62 degrees QTcB Int : 486 ms Sinus tachycardia with Premature ventricular complexes Possible Left atrial enlargement Nonspecific ST abnormality Prolonged QT When compared with ECG of 03-Jun-2024 06:49, No significant change Confirmed by Aman Perez ([id number]) on 01/26/2025 6:01:31 AM Referred By: REFERRED SELF Confirmed By: Aman Perez
[2025-01-26 06:52] LABS: Hematocrit (blood only) 24.4 % (37.0-47.0); Hemoglobin 8.8 g/dl (12.0-16.0); Mean Corpuscular Hemoglobin 34.8 pg (25.0-34.0); Mean Corpuscular Hgb Conc 36.1 g/dL (32.0-36.0); Mean Corpuscular Volume 96.4 fL (80.0-100.0); Mean Platelet Volume 11.5 fL (9.4-12.4); Nucleated RBC # (auto) 0.03 K/uL (0.00-0.12); Nucleated RBC % (auto) 0.4 %; Platelet Count 120 K/uL (130-400); RDW Coefficient of Variation 23.4 % (11.5-14.5); RDW Standard Deviation 79.6 fL (36.4-46.3); Red Blood Count 2.53 M/uL (4.20-5.40); White Blood Count 8.48 K/ul (4.8-10.8)
[2025-01-26 07:28] LABS: Albumin Globulin Ratio 1.5 (0.9-2); Albumin Level 3.1 gm/dl (3.4-5.0); BUN Creatinine Ratio 12.3 (10-20); Bilirubin,Total 6.1 mg/dl (0.2-1.0); Calcium 7.8 mg/dl (8.6-10.3); Creatinine Clr Calc Pharmacy 105.9 ml/min; Globulin 2.1 gm/dl (2.5-4.0); Magnesium 1.7 mg/dl (1.7-2.4); Phosphorus 1.9 mg/dl (2.5-4.9); Potassium 4.4 mmol/L (3.5-5.1); Total Protein 5.2 gm/dl (6.0-8.3)
[2025-01-26] MEDS: THIAMINE HCL 100 MG TAB PO SCH (07:34)
[2025-01-26] MEDS: FOLIC ACID 1 MG TAB PO SCH (07:34)
--- NOTE | 2025-01-26 09:04 | Gastroenterology Progress Note ---
Date of Service January 26, 2025 Assessment & Plan (1) Hematemesis: Plan: 59 year old female with history of hypertension, alcoholic liver disease, esophageal varices, celiac disease, hyperthyroidism as per records, ongoing tobacco/alcohol abuse admitted through the ED with hematemesis and rectal bleeding. S/P EGD w/ banding of grade II esophageal varices, evidence of portal hypertensive gastropathy Diet as tolerated Oral PPI twice daily Continue Octreotide drip today Continue ABX for SBP prophylaxis Trend H&H Monitor and document GI output Transfuse PRN per primary service ETOH cessation is vital MELD 25 DF: 31.4 Cirrhosis Management: AA/ETOH rehabilitation encouraged MELD labs every 6 months ABD imaging w/ AFP every 6 months EGD every 1-2 years No ETOH No NSAIDs Avoid hepatotoxin Low NA diet, less than 2G daily Less than 2G acetaminophen containing products daily Continue follow up with Dr. Galleg[facility] I spent a total of 40 minutes on the date of service in review of patient's record, and previously obtained information in person and appropriate medical visit, discussion and education of plan, with patient and/or caregiver, placing orders for tests/referral/procedures as medically necessary and documentation of pertinent clinical information in patient's medical records for their visit today. Admission and Anticipated Discharge Date Admission Date: January 24, 2025 Supervising Physician Co-Signing Physician Notes I personally saw and examined the patient. I have reviewed the chart and agree with the documentation provided by the EMERGENCY MEDICAL TECHNICIAN BASIC including discussion about the assessment, treatment and plan. Briefly, a dark bowel movement that was leftovers blood from prior. She is tolerating a soft diet. She has had no further hematemesis. EGD yesterday showed 2 cords of varices that were banded they were between grade 2-3 but no red martine sign was present. She did have moderate least severe portal hypertensive gastropathy that bled on contact. Ideally, I would like her to be on propranolol but my concern is that her blood pressures have been running quite low here and she is not the best candidate due to this. Will continue to follow. Octreotide today continue ceftriaxone. 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 She will need a repeat EGD in 2 to 3-month Subjective Pt was seen and evaluated, chart reviewed. No concerns this AM - sitting upright in bed, eating breakfast. Denies abd pain, nausea/vomiting. Moved her stools early, early this AM. Passed some blood w/ clots but notes this was decreased in volume and frequency. EGD 2024: Grade II esophageal varices. Completely eradicated. Banded. - Portal hypertensive gastropathy. - With air insufflation and just touching the stomach there was slight oozing. She has moderately severe portal hypertensive gastropathy from chronic alcohol abuse and that is also likely contributing to her anemia and bleeding - Normal examined duodenum. - No specimens collected. Review of Systems Review of Systems: All other findings negative except as noted in HPI. Physical Exam Constitutional: WD/WN, vitals as above Respiratory: normal respiratory effort Cardiovascular: Rate/Rhythm: regular rate Gastrointestinal (Abdomen): Inspection/Auscultation: normal bowel sounds Skin: no rashes, warm and dry Results & Data Results & Data Vital Signs (Past 12 Hours) Vital Signs Temp Pulse Pulse Resp BP Pulse Ox O2 Del Method 01/26/25 07:46 98.6 F 77 18 105/67 95 Room Air 01/26/25 03:14 98.4 F 78 18 99/65 L 94 Room Air 01/26/25 02:34 97.9 F 01/25/25 23:08 99.5 F 91 H 18 110/68 94 Room Air 01/25/25 21:44 92 H Laboratory Results 01/26/25 01/25/25 01/25/25 Range/Units 06:29 22:38 16:00 WBC 8.48 (4.8-10.8) K/ul RBC 2.53 L (4.20-5.40) M/uL Hgb 8.8 L 8.6 L 9.2 L (12.0-16.0) g/dl Hct 24.4 L 24.3 L 25.7 L (37.0-47.0) % MCV 96.4 D (80.0-100.0) fL MCH 34.8 H (25.0-34.0) pg MCHC 36.1 H (32.0-36.0) g/dL RDW Std Deviation 79.6 H (36.4-46.3) fL RDW Coeff of Car 23.4 H (11.5-14.5) % Plt Count 120 L (130-400) K/uL MPV 11.5 (9.4-12.4) fL Absolute Nucleated RBC 0.03 (0.00-0.12) K/uL Nucleated RBC % (auto) 0.4 % Sodium 128 L 130 L (136-145) mmol/L Potassium 4.4 3.9 D (3.5-5.1) mmol/L Chloride 100 101 (98-107) mmol/L Carbon Dioxide 25 23 (21-32) mmol/L Anion Gap 3 6 (3-11) BUN 7 10 (6-23) mg/dl Creatinine 0.57 L 0.65 (0.6-1.2) mg/dl Est Cr Clr Drug Dosing 105.9 92.8 ml/min eGFR 103.97 100.73 BUN/Creatinine Ratio 12.3 15.4 (10-20) Glucose 94 160 H (70-99(Fasting)) mg/dl Calcium 7.8 L 8.1 L (8.6-10.3) mg/dl Phosphorus 1.9 L (2.5-4.9) mg/dl Magnesium 1.7 2.1 (1.7-2.4) mg/dl Total Bilirubin 6.1 H (0.2-1.0) mg/dl AST 111 H (13-39) U/L ALT 32 (7-52) U/L Alkaline Phosphatase 100 (34-104) U/L Total Protein 5.2 L (6.0-8.3) gm/dl Albumin 3.1 L (3.4-5.0) gm/dl Globulin 2.1 L (2.5-4.0) gm/dl Albumin/Globulin Ratio 1.5 (0.9-2) Stl C. diff Tox B Gene (Neg) Stl C.difficile Tox A&B (Negative) Blood Type Antibody Screen Crossmatch 01/25/25 01/25/25 01/24/25 Range/Units 09:09 05:45 23:17 WBC (4.8-10.8) K/ul RBC (4.20-5.40) M/uL Hgb 7.5 L (12.0-16.0) g/dl Hct 20.4 L* (37.0-47.0) % MCV (80.0-100.0) fL MCH (25.0-34.0) pg MCHC (32.0-36.0) g/dL RDW Std Deviation (36.4-46.3) fL RDW Coeff of Car (11.5-14.5) % Plt Count (130-400) K/uL MPV (9.4-12.4) fL Absolute Nucleated RBC (0.00-0.12) K/uL Nucleated RBC % (auto) % Sodium (136-145) mmol/L Potassium (3.5-5.1) mmol/L Chloride (98-107) mmol/L Carbon Dioxide (21-32) mmol/L Anion Gap (3-11) BUN (6-23) mg/dl Creatinine (0.6-1.2) mg/dl Est Cr Clr Drug Dosing ml/min eGFR BUN/Creatinine Ratio (10-20) Glucose (70-99(Fasting)) mg/dl Calcium (8.6-10.3) mg/dl Phosphorus (2.5-4.9) mg/dl Magnesium (1.7-2.4) mg/dl Total Bilirubin (0.2-1.0) mg/dl AST (13-39) U/L ALT (7-52) U/L Alkaline Phosphatase (34-104) U/L Total Protein (6.0-8.3) gm/dl Albumin (3.4-5.0) gm/dl Globulin (2.5-4.0) gm/dl Albumin/Globulin Ratio (0.9-2) Stl C. diff Tox B Gene Positive Cdiff Gene H (Neg) Stl C.difficile Tox A&B Negative Cdiff Toxin (Negative) Blood Type A Positive Antibody Screen NEGATIVE Crossmatch See Detail PG Care Time/CCT Total # of Minutes Spent Total Time Spent with Patient: Total time spent is greater than 50% in coordination of care (as documented) at patient's floor/unit and/or counseling patient: Coding Level of Care Code 59760 SUB INP/OBS CARE 2/35MIN Diagnoses Hematemesis K92.0
--- NOTE | 2025-01-26 13:57 | Hospitalist Progress Note ---
Date of Service January 26, 2025 Assessment & Plan (1) Hypotension: Plan: 59 yo F w/ PMH of hypertension, alcoholic liver disease, esophageal varices, celiac disease, hyperthyroidism, ongoing tobacco/alcohol abuse presents to the ED w/ an episode of hematemesis/coffee-ground emesis a/w passage of dark blood clots per rectum. 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 Denies OTC NSAID intake. Per Pt, she drank some alcohol on the day of presentation after being off for a number of weeks. SBP 80s upon arrival at the ER. Underwent EGD on 01/25; found to have grade 2 esophageal varices; completely eradicated, banded. Portal hypertensive gastropathy. Advance diet as tolerated, continue on IV octreotide and Protonix Discussed with patient to maintain abstinence from alcohol; reports that she will comply. Monitor for recurrence of bleeding. Transfuse if hemoglobin is less than 7 Hypokalemia secondary to emesis, monitor and replete. Hypomagnesemia: repleted Hyponatremia: Baseline Na level appears to be low 130s to low normal. Admitting Na of 126, slighly improved Alcoholic hepatitis, poor prognosis based on computed Maddrey's DF score of 37.9 points at presentation,. SEDA S at risk protocol, DT precautions Other chronic medical conditions: Continue with/resume home meds as and when able. hyperthyroidism as per records, patient euthyroid, currently not on maintenance medications Hyperglycemia ruled out DM. a1c 4.6 ongoing tobacco/alcohol abuse. strongly counselled against tobacco/alcohol use. Nicotine patch DVT prophylaxis. SCDs Re: UGIB Full code Time spent evaluating patient, direct bedside care, chart review, placing orders, interpretation of diagnostic studies, discussion with consultants, patient, and family members, as well as other required patient management activities is 50 minutes Please note the above document was generated using voice recognition software. It may contain grammatical, syntax or spelling errors. Any formal questions or concerns about the content, text or information contained within the body of this dictation should be directly addressed to the provider for clarification Admission and Anticipated Discharge Date Admission Date: January 24, 2025 Subjective Patient seen and examined at bedside. She is comfortable; not in distress She denies ongoing hematemesis or melena No significant events overnight Review of Systems Review of Systems: All systems reviewed & are unremarkable except as noted in Subjective Physical Exam Physical Exam: GENERAL: NAD, no respiratory distress SKIN: Pallor, warm HEENT: Bespectacled, pale palpebral conjunctivae, no ptosis, dry buccal mucosa NECK : Supple, no tenderness CHEST : Decreased breath sounds, no tenderness HEART : RRR, HR in 80-90s, no obvious murmurs ABDOMEN: Some distention, nontender EXTREMITIES : No LE swelling/tenderness, no other conspicuous deformities noted NEUROLOGIC : Coherent, no facial asymmetry, no other gross focality Results & Data Results & Data Vital Signs (Past 12 Hours) Vital Signs Temp Pulse Resp BP Pulse Ox O2 Del Method 01/26/25 11:37 36.9 C 83 20 109/71 96 Room Air 01/26/25 07:46 37.0 C 77 18 105/67 95 Room Air 01/26/25 03:14 36.9 C 78 18 99/65 L 94 Room Air 01/26/25 02:34 36.6 C
[2025-01-26] MEDS: SIMETHICONE 80 MG CHEW PO ONE (14:06)
[2025-01-27 03:27] VITALS: O2SAT 93
[2025-01-27 07:38] LABS: Hematocrit (blood only) 25.5 % (37.0-47.0); Hemoglobin 9.1 g/dl (12.0-16.0); Mean Corpuscular Hemoglobin 35.1 pg (25.0-34.0); Mean Corpuscular Hgb Conc 35.7 g/dL (32.0-36.0); Mean Corpuscular Volume 98.5 fL (80.0-100.0); Mean Platelet Volume 11.2 fL (9.4-12.4); Nucleated RBC # (auto) 0.03 K/uL (0.00-0.12); Nucleated RBC % (auto) 0.4 %; Platelet Count 100 K/uL (130-400); RDW Coefficient of Variation 23.3 % (11.5-14.5); RDW Standard Deviation 80.3 fL (36.4-46.3); Red Blood Count 2.59 M/uL (4.20-5.40); White Blood Count 7.45 K/ul (4.8-10.8)
[2025-01-27 07:39] LABS: Calcium 7.8 mg/dl (8.6-10.3); Potassium 3.9 mmol/L (3.5-5.1)
[2025-01-27 07:44] LABS: Creatinine Clr Calc Pharmacy 131.2 ml/min
[2025-01-27 08:05] LABS: Basophils # (auto) 0.07 K/uL (0.00-0.20); Basophils % (auto) 0.9 %; Eosinophils # (auto) 0.17 K/uL (0.00-0.50); Eosinophils % (auto) 2.3 %; Immature Granulocytes # (auto) 0.06 K/uL (0.01-0.20); Immature Granulocytes % (auto) 0.8 %; Lymphocytes # (auto) 1.63 K/uL (1.20-3.40); Lymphocytes % (auto) 21.9 %; Monocytes # (auto) 0.88 K/uL (0.11-0.59); Monocytes % (auto) 11.8 %; Neutrophils # (auto) 4.64 K/uL (1.40-6.50); Neutrophils % (auto) 62.3 %; Polychromasia 1+; Target Cells 1+
--- NOTE | 2025-01-27 09:48 | Gastroenterology Progress Note ---
Date of Service January 27, 2025 Assessment & Plan (1) Hematemesis: Plan: 59 year old female with history of hypertension, alcoholic liver disease, esophageal varices, celiac disease, hyperthyroidism as per records, ongoing tobacco/alcohol abuse admitted through the ED with hematemesis and rectal bleeding. S/P EGD w/ banding of grade II esophageal varices, evidence of portal hypertensive gastropathy. She has remained hemodynamically stable w/o reports of further bleeding. No GI contraindication to discharge today. May continue diet as tolerated. Oral PPI twice daily. MELD 25. ETOH cessation is vital. AA/ETOH rehabilitation encouraged. Follow up with [facility] as an outpatient. Recall as needed. Please refer to previous progress notes for additional recommendations/plans. I spent a total of 40 minutes on the date of service in review of patient's record, and previously obtained information in person and appropriate medical visit, discussion and education of plan, with patient and/or caregiver, placing orders for tests/referral/procedures as medically necessary and documentation of pertinent clinical information in patient's medical records for their visit today. Admission and Anticipated Discharge Date Admission Date: January 24, 2025 Supervising Physician Co-Signing Physician Notes I personally saw and examined the patient. I have reviewed the chart and agree with the documentation provided by the QUALITY CONTROL ASSISTANT including discussion about the assessment, treatment and plan. Briefly, no bleeding and blood pressure stable. I asked her to join AA and please stop drinking. She is stable for discharge and is tolerating a diet. Status post banding with portal hypertensive gastropa thy from persistent alcohol use Subjective Feeling well. Moved a brown stool last night. No further BMs today. Tolerating PO intake. No nausea/vomiting. No fevere, chills, CP, SOB. Review of Systems Review of Systems: All other findings negative except as noted in HPI. Physical Exam Constitutional: well developed and well nourished Respiratory: normal respiratory effort Cardiovascular: Rate/Rhythm: regular rate Gastrointestinal (Abdomen): Percussion/Palpation: abdomen soft; abdomen nontender, no guarding and abdomen not rigid Skin: no rashes, warm and dry Results & Data Results & Data Vital Signs (Past 12 Hours) Vital Signs Temp Pulse Resp BP Pulse Ox O2 Del Method O2 Flow Rate 01/27/25 08:00 Nasal Cannula 2 01/27/25 07:55 98.4 F 74 16 117/80 93 Room Air 01/27/25 03:05 98.4 F 87 18 117/75 93 Room Air 01/26/25 22:57 99.0 F 90 18 135/75 92 Room Air Laboratory Results 01/27/25 Range/Units 06:58 WBC 7.45 (4.8-10.8) K/ul RBC 2.59 L (4.20-5.40) M/uL Hgb 9.1 L (12.0-16.0) g/dl Hct 25.5 L (37.0-47.0) % MCV 98.5 (80.0-100.0) fL MCH 35.1 H (25.0-34.0) pg MCHC 35.7 (32.0-36.0) g/dL RDW Std Deviation 80.3 H (36.4-46.3) fL RDW Coeff of Car 23.3 H (11.5-14.5) % Plt Count 100 L (130-400) K/uL MPV 11.2 (9.4-12.4) fL Immature Gran % (Auto) 0.8 % Neut % (Auto) 62.3 % Lymph % (Auto) 21.9 % [place] % (Auto) 11.8 % Eos % (Auto) 2.3 % Baso % (Auto) 0.9 % Neut # (Auto) 4.64 (1.40-6.50) K/uL Lymph # (Auto) 1.63 (1.20-3.40) K/uL [place] # (Auto) 0.88 H (0.11-0.59) K/uL Eos # (Auto) 0.17 (0.00-0.50) K/uL Baso # (Auto) 0.07 (0.00-0.20) K/uL Immature Gran # (Auto) 0.06 (0.01-0.20) K/uL Absolute Nucleated RBC 0.03 (0.00-0.12) K/uL Nucleated RBC % (auto) 0.4 % Polychromasia 1+ Target Cells 1+ Sodium 128 L (136-145) mmol/L Potassium 3.9 (3.5-5.1) mmol/L Chloride 100 (98-107) mmol/L Carbon Dioxide 25 (21-32) mmol/L Anion Gap 3 (3-11) BUN 6 (6-23) mg/dl Creatinine 0.46 L (0.6-1.2) mg/dl Est Cr Clr Drug Dosing 131.2 ml/min eGFR 109.48 BUN/Creatinine Ratio 13.0 (10-20) Glucose 86 (70-99(Fasting)) mg/dl Calcium 7.8 L (8.6-10.3) mg/dl PG Care Time/CCT Total # of Minutes Spent Total Time Spent with Patient: Total time spent is greater than 50% in coordination of care (as documented) at patient's floor/unit and/or counseling patient: Coding Level of Care Code 01932 SUB INP/OBS CARE 235MIN Diagnoses Hematemesis K92.0
[2025-01-27 12:29] VITALS: BP 111/72; PULSE 82; RESP 18; TEMP 97.9
--- NOTE | 2025-01-27 14:43 | Discharge Summary ---
Date of Service January 27, 2025 Admission HPI Per Admitting Provider History obtained from patient and records. Medical history significant for hypertension, alcoholic liver disease, esophageal varices, celiac disease, hyperthyroidism as per records, ongoing tobacco/alcohol abuse. Last confinement May 2024 for portal hypertensive gastropathy presenting as hematemesis. EGD showed scar in the lower third of esophagus. No residual varices. Portal hypertensive gastropathy. Normal duodenum. Patient discharged with PPI Rx. 2 weeks ago, patient had painless hematuria symptoms associated with fatigue symptoms. Some difficulty in urination. No outpatient urine CS done. Patient prescribed outpatient Bactrim course which relieved symptoms. Patient had episode of hematemesis/coffee-ground emesis associated with passage of dark blood clots per rectum. Abdomen distended more than usual although not painful as per patient. Denies chest pain, SOB. Denies OTC NSAID intake. Drank some alcohol today after being off for a number of weeks. Patient directed to ER for evaluation. SBP 80s upon arrival at the ER. IV Protonix, octreotide infusion, ceftriaxone administered at the ER. Medical History as above 2019 EGD showed nonbleeding esophageal varices, flattened mucosa duodenum consistent with celiac disease. 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 Admission Exam Per Admitting Provider GENERAL: Slightly anxious, no respiratory distress SKIN: Pallor, warm HEENT: Bespectacled, pale palpebral conjunctivae, no ptosis, dry buccal mucosa NECK : Supple, no tenderness CHEST : Decreased breath sounds, no tenderness HEART : Tachycardic, no obvious murmurs ABDOMEN: Some distention, nontender EXTREMITIES : No LE swelling/tenderness, no other conspicuous deformities noted NEUROLOGIC : Coherent, no facial asymmetry, no other gross focality Principal Diagnosis Upper GI bleed Portal hypertensive gastropathy Liver cirrhosis Discharge Exam GENERAL: NAD, no respiratory distress SKIN: Pallor, warm HEENT: Bespectacled, pale palpebral conjunctivae, no ptosis, dry buccal mucosa NECK : Supple, no tenderness CHEST : Decreased breath sounds, no tenderness HEART : RRR, HR in 80-90s, no obvious murmurs ABDOMEN: Some distention, nontender EXTREMITIES : No LE swelling/tenderness, no other conspicuous deformities noted NEUROLOGIC : Coherent, no facial asymmetry, no other gross focality Discharge Data Allergies Allergy/AdvReac Type Severity Reaction Status Date / Time gluten Allergy Unknown Hives Verified 01/24/25 23:50 prednisone AdvReac Intermediate Nausea,vomiting Verified 01/24/25 23:50 and diarrhea Consultations 01/24/25 23:45 ED Decision to Admit Stat 01/25/25 01:28 Consult Gastroenterology Routine Procedures Performed Operation Date: 01/25/25 16:45 Actual Procedures p EGD Banding of Varices - Gabe Stanley MD Ordered Studies 01/25/25 01:22 abdomen ltd ascites Stat Hospital Course (1) Hypotension: 59 yo F w/ PMH of hypertension, alcoholic liver disease, esophageal varices, celiac disease, hyperthyroidism, ongoing tobacco/alcohol abuse presents to the ED w/ an episode of hematemesis/coffee-ground emesis a/w passage of dark blood clots per rectum. She was admitted to the medical floor and managed for the following conditions: Upper GI bleed Portal hypertensive gastropathy Liver cirrhosis Patient had episode of hematemesis/coffee-ground emesis associated with passage of dark blood clots per rectum [employer] As per report, she drank some alcohol on the day of presentation after being off for a number of weeks. SBP 80s upon arrival at the ER. Patient was resuscitated; started on octreotide and Protonix drip. Admitted to telemetry floor. Underwent EGD on 01/25; found to have grade 2 esophageal varices; completely eradicated, banded. Portal hypertensive gastropathy. Patient was monitored after the procedure; her hemoglobin remained stable without any signs of recurrence of bleeding. Multiple discussion was done with the patient regarding maintaining abstinence from alcohol. Patient was discharged home on Protonix 40 mg twice a day.Recommended patient to follow-up with PCP. She will need repeat endoscopy in 2 to 3 months which should be arranged through [facility] Please note the above document was generated using voice recognition software. It may contain grammatical, syntax or spelling errors. Any formal questions or concerns about the content, text or information contained within the body of this dictation should be directly addressed to the provider for clarification Total Time Total Time Spent Total Time Spent (In Minutes): 45 Total Time Includes: Examination of the Patient, Discharge Planning, Medication Reconciliation, Communication With Other Providers and Other Discharge Plan Discharge Items Patient Disposition: Home - Self-Care Reason For Visit: HYPOTENSION, UGIB Discharge Diagnosis: Upper GI bleed Portal hypertensive gastropathy Liver cirrhosis Activity: Resume your previous activity Non-emergency contact: Primary Care Provider Call non-emergency contact if: you have any medication questions and your symptoms worsen Follow-up/Referrals: Misael Vail MD [Primary Care Provider] - (Date & Time 02/03/2025 11:00 AM Provider: Misael Vail MD [facility] ) Diet: Regular Fluids: 1500ml (6 cups) Addtl Attending Provider Instructions: You were admitted to the hospital due to upper GI bleed. You underwent endoscopy by GI; found to have esophageal varices which was eradicated with bands. You are found to have severe portal hypertensive gastropathy which is most likely the reason for the upper GI bleed. Please take Protonix 40 mg twice a day going forward. Please abstain from drinking alcohol. If you notice dark stool, blood while vomiting or any stool; seek medical attention immediately. Pending Studies at Discharge: No Stand-Alone Forms: [facility] [employer], Smoking Cessation Medications and DC Order Prescriptions: New thiamine HCl (vitamin B1) 100 mg Tablet 100 mg PO QAM Qty: 30 0RF folic acid 1 mg Tablet 1 mg PO QAM Qty: 30 0RF Continued cholecalciferol (vitamin D3) [Vitamin D3] 125 mcg (5,000 unit) Tablet 125 mcg PO QAM pantoprazole 40 mg tablet,delayed release (DR/EC) 40 mg PO BID Qty: 60 0RF Discharge Orders: Discharge Order (Routine); Ordered 01/27/25 Ordered By: Kirk Rivero/Other Patient Handouts: Social Drinking vs Problem Drinking, ED Upper GI Bleeding (Stable) Admission Data Admit Date/Time: 01/24/25 23:56 Attending Provider: Kirk Vitale Admit Provider: Johnathan Arias Primary Care Provider: Misael Vail Other Providers: Johnathan Arias; Gabe Stanley Other Interventions: Discharge Summary Assessment (RN) Last Done: 01/27/25 12:54
== END 2025-01-27 14:25 | disposition home or self-care (01) | DRG 378 ==
LOC: ED 21:54 → 2S 23:56 → SUATTDRO 23:56 → 2S 01-25 01:18

== ENCOUNTER 2025-02-03 20:29 | Inpatient (IN) ==
--- NOTE | 2025-02-03 20:57 | Emergency Department Note ---
Impression & Plan Abdominal ascites, Acute hyponatremia, Cirrhosis of liver ED Provider Note Provider: Naif Segovia MD CHIEF COMPLAINT: Swelling HISTORY OF PRESENT ILLNESS: Patient is a 59-year-old female past medical history significant for cirrhosis and recent admission for GI bleed with esophageal varices banding presenting here today stating she has increased swelling over the last 3 or 4 days of the legs in particular the abdomen. No significant pain. Is somewhat painful and difficult for her to bend at the waist however. This impacts ability to function. Denies significant chest pain or fevers. No significant cough or cold reported. Denies recent alcohol use. Denies falls. Was at her primary doctor's office today and given a prescription for a water pill, Lasix, which she took once. Given the significant swelling and no change after this came here for further evaluation. Denies a cardiac history to her knowledge. PAST MEDICAL HISTORY: As noted above MEDICATIONS: Reviewed home medications SOCIAL HISTORY: Denies recent alcohol use PHYSICAL EXAM: GENERAL: alert and oriented in no acute distress on stretcher Head: normocephalic and atraumatic EYES: No injection or discharge with trace bilateral icterus NECK: Trachea midline. ENT: Mucous membranes pink and moist. LUNGS: Airway patent. No retractions. Breath sounds clear anteriorly although diminished at bases HEART: Regular rate and rhythm. No chest wall tenderness ABDOMEN: Soft moderately send abdomen without tenderness or guarding or rebound. SKIN: Acyanotic, warm, dry, without rashes EXTREMITIES: Without deformity with 1+ bilateral lower extremity edema. No erythema or significant rash noted. NEUROLOGICAL: No focal deficits. No aphasia. No facial droop or slurred speech. Ambulatory. EK bpm normal sinus rhythm. No PVC or PAC. No acute ST segment elevation or depression with QTc of 447. CONTINUOUS CARDIAC MONITORING: was ordered and showed a heart rate of 90s bpm in normal sinus rhythm Patient's laboratory studies and imaging reviewed. Differential includes Reactive airway disease, pneumonia, pneumothorax, COPD, worsening liver disease, CHF, infections, cardiac ischemia, pulmonary embolism, musculoskeletal, gastrointestinal, as well as other pathologies. IMPRESSION/MEDICAL DECISION MAKING: Patient denies a cardiac history. Significant GI/cirrhosis history noted although she denies a history of abdominal swelling or paracentesis before. Question liver cirrhosis causing edema. Will give an extra dose of Lasix. Blood work is sent. Will obtain abdominal CT to further define what likely appears to be abdominal ascites are present. Doubt perforation. Does not appear septic. Chest x-ray obtained but doubt PE. Question if this is related to the abdominal distention but not in severe distress or requiring oxygen. Blood work here with slight increase leukocytosis 13.3 today and improving anemia 11.5. Normal platelet count. Stable INR 1.6 with her underlying liver disease. Significantly worsened hyponatremia as well as hypomagnesemia. Potassium mildly low. No significant renal dysfunction. Bilirubin stable at 5.9 today from previous. No evidence of acute pancreatitis send AST ALT are not severely elevated. Alcohol level undetectable. Negative COVID flu RSV testing. Troponin not elevated BNP not elevated doubt this is cardiac in relation. Seems likely related to worsening renal dysfunction. Chest x-ray 1 view per my interpretation and review without evidence significant effusion or pneumonia. CT abdomen pelvis per radiology report without evidence of free air with some abdominal ascites noted. Discussed with patient staying for further treatment evaluation of her cirrhosis and hyponatremia. Again doubt SBP and do not feel there is a large amount for me to tap in the ER at this time. Did order some magnesium replacement. Do believe she does need to come in for treatment and patient was agreeable. Again denies any acute GI bleed symptoms at this time and anemia is improved. Discussed with the hospitalist team DIAGNOSIS: Abdominal ascites, hyponatremia, hypomagnesemia, swelling DISPOSITION: Hospitalist will evaluate Patient was agreeable with this plan. Past Med/Surg History Problem List (Updated 02/04/25 @ 00:30 by Naif Segovia M.D.) Cirrhosis of liver (Acute) Acute hyponatremia (Acute) Abdominal ascites (Acute) Hematemesis Alcohol use Encounter for pre-operative examination Hypotension Acute upper gastrointestinal bleeding (Acute) Hyperbilirubinemia (Acute) Abnormal urinalysis (Acute) Lactic acidosis (Acute) Transaminitis (Acute) Jaundice (Acute) Medical History Portal hypertensive gastropathy Syncope Alcoholic hepatitis Hyperbilirubinemia Prolonged QT interval Alcoholism, chronic Hypomagnesemia Hypokalemia Acute upper gastrointestinal bleeding Hyponatremia Celiac disease Tobacco use Surgical History H/O eye surgery Family History Other Prostate cancer Stroke Social History Smoking Status: Never smoker Tobacco Type: Cigarettes Cigarettes Per Day: 1 pk; Second Hand Exposure: Yes; Do You Dip or Chew Tobacco: No; Hx Alcohol Use: Yes Alcohol type: hard liquor Alcohol type Comment: h/o heavy vodka intake, stopped drinking 3 weeks ago Hx Substance Use: No Preferred Language: Georgian Communication Ability: Effective Service Desk Lead Required: No Beliefs That Will Affect Care: None marital status: Single Current Living Situation: Spouse Current Living Situation Comment: [facility] [place] current occupational status: unemployed Feels Safe at Home: Yes Assistive Devices: None Allergies Allergies Allergy/AdvReac Type Severity Reaction Status Date / Time gluten Allergy Unknown Hives Verified 02/03/25 23:01 prednisone AdvReac Intermediate Nausea,vomiting Verified 02/03/25 23:01 and diarrhea Home Meds Home Medications Medication Instructions Recorded Confirmed cholecalciferol (vitamin D3) 125 125 mcg PO QAM 01/24/25 02/03/25 mcg (5,000 unit) tablet (Vitamin D3) cyclobenzaprine 5 mg tablet 5 mg PO BID PRN MUSCLE SPASMS 02/03/25 02/03/25 furosemide 20 mg tablet 20 mg PO DAILY 02/03/25 02/03/25 Previous Rx's Medication Instructions Recorded folic acid 1 mg tablet 1 mg PO QAM #30 tabs 01/27/25 pantoprazole 40 mg tablet,delayed 40 mg PO BID #60 tabs 01/27/25 release thiamine HCl (vitamin B1) 100 mg 100 mg PO QAM #30 tabs 01/27/25 tablet Results & Data (ED) Vital Signs Vital Signs - 24 hr 02/03/25 20:32 02/03/25 20:45 02/03/25 20:54 Temperature 36.6 C Temperature Source Oral Pulse Rate 94 H 87 Pulse Rate [Apical] 85 Pulse Rate from SpO2 Sensor Pulse Rhythm Regular Pulse Rhythm [Apical] Regular Pulse Strength Normal Pulse Strength [Apical] Normal Respiratory Rate 18 18 Respiratory Effort / Characteristics Non-Labored Spontaneous Non-Labored Spontaneous Respiratory Depth Normal Normal Respiratory Pattern Regular Regular Blood Pressure 102/72 Blood Pressure [Right Arm] 113/71 Blood Pressure Mean 82 Blood Pressure Mean [Right Arm] 85 Blood Pressure Position Sitting Blood Pressure Position [Right Arm] Lying Pulse Oximetry 95 95 Oxygen Delivery Method Room Air Room Air Sepsis Recent Fever Within 48 Hours No Sepsis New/Unexplained Change in Mental Status N/A Sepsis Action Taken by Nursing No Action Required 02/03/25 20:54 02/03/25 20:54 02/03/25 22:31 Temperature Temperature Source Pulse Rate 92 H Pulse Rate [Apical] 91 H Pulse Rate from SpO2 Sensor Pulse Rhythm Regular Pulse Rhythm [Apical] Regular Pulse Strength Pulse Strength [Apical] Normal Respiratory Rate 18 14 Respiratory Effort / Characteristics Non-Labored Spontaneous Respiratory Depth Normal Respiratory Pattern Regular Blood Pressure Blood Pressure [Right Arm] 126/81 Blood Pressure Mean Blood Pressure Mean [Right Arm] 96 Blood Pressure Position Blood Pressure Position [Right Arm] Lying Pulse Oximetry 95 95 93 Oxygen Delivery Method Room Air Room Air Room Air Sepsis Recent Fever Within 48 Hours Sepsis New/Unexplained Change in Mental Status Sepsis Action Taken by Nursing 02/03/25 23:03 02/03/25 23:15 02/04/25 00:00 Temperature Temperature Source Pulse Rate 89 90 Pulse Rate [Apical] Pulse Rate from SpO2 Sensor 91 H Pulse Rhythm Pulse Rhythm [Apical] Pulse Strength Pulse Strength [Apical] Respiratory Rate 14 13 Respiratory Effort / Characteristics Respiratory Depth Respiratory Pattern Blood Pressure 118/81 110/79 Blood Pressure [Right Arm] Blood Pressure Mean 93 89 Blood Pressure Mean [Right Arm] Blood Pressure Position Blood Pressure Position [Right Arm] Pulse Oximetry 93 90 92 Oxygen Delivery Method Room Air Room Air Room Air Sepsis Recent Fever Within 48 Hours Sepsis New/Unexplained Change in Mental Status Sepsis Action Taken by Nursing Laboratory Data 02/03/25 20:49 02/03/25 20:49 Lab Results 02/03/25 02/03/25 Range/Units 20:49 20:59 WBC 13.39 H (4.8-10.8) K/ul RBC 3.27 L (4.20-5.40) M/uL Hgb 11.5 L (12.0-16.0) g/dl Hct 31.2 L (37.0-47.0) % MCV 95.4 (80.0-100.0) fL MCH 35.2 H (25.0-34.0) pg MCHC 36.9 H (32.0-36.0) g/dL RDW Std Deviation 71.3 H (36.4-46.3) fL RDW Coeff of Car 20.7 H (11.5-14.5) % Plt Count 173 (130-400) K/uL MPV 12.6 H (9.4-12.4) fL Immature Gran % (Auto) 0.7 % Neut % (Auto) 74.6 % Lymph % (Auto) 14.9 % [place] % (Auto) 8.7 % Eos % (Auto) 0.7 % Baso % (Auto) 0.4 % Neut # (Auto) 9.98 H (1.40-6.50) K/uL Lymph # (Auto) 1.99 (1.20-3.40) K/uL [place] # (Auto) 1.17 H (0.11-0.59) K/uL Eos # (Auto) 0.09 (0.00-0.50) K/uL Baso # (Auto) 0.06 (0.00-0.20) K/uL Immature Gran # (Auto) 0.10 (0.01-0.20) K/uL Anisocytosis Present PT 16.4 H (9.0-12.0) Seconds INR 1.6 H (0.9-1.1) APTT 30 (21-31) Seconds PTT Ratio 1.1 Sodium 118 L* (136-145) mmol/L Potassium 3.1 L (3.5-5.1) mmol/L Chloride 85 L (98-107) mmol/L Carbon Dioxide 27 (21-32) mmol/L Anion Gap 6 (3-11) BUN 4 L (6-23) mg/dl Creatinine 0.66 (0.6-1.2) mg/dl Est Cr Clr Drug Dosing 88.1 ml/min eGFR 100.36 BUN/Creatinine Ratio 6.1 L (10-20) Glucose 109 H (70-99(Fasting)) mg/dl Osmolality 247 L (280-300) mOsm/kg Calcium 8.3 L (8.6-10.3) mg/dl Magnesium 1.3 L (1.7-2.4) mg/dl Total Bilirubin 5.9 H (0.2-1.0) mg/dl AST 136 H (13-39) U/L ALT 46 (7-52) U/L Alkaline Phosphatase 197 H (34-104) U/L Troponin I High Sens 13.2 (0-14) pg/ml B-Natriuretic Peptide 61 (0-100) pg/ml Total Protein 6.6 (6.0-8.3) gm/dl Albumin 3.5 (3.4-5.0) gm/dl Globulin 3.1 (2.5-4.0) gm/dl Albumin/Globulin Ratio 1.1 (0.9-2) Lipase 27 (11-82) U/L TSH 6.144 H (0.300-4.500) uIu/ml Free T4 1.54 (0.61-1.60) ng/dl Ethyl Alcohol mg/dL < 10.0 (<10.0) mg/dl SARS-CoV-2 (PCR) NEGATIVE (Negative) Influenza Type A (PCR) Negative (Neg) Influenza Type B (PCR) Negative (Neg) RSV (RT-PCR) Negative (Neg) Administered Medications Discontinued Medications Furosemide (Furosemide 40 Mg/4 Ml Vial) 40 mg IV ONE ONE Stop: 02/03/25 20:54 Last Admin: 02/03/25 21:51 Dose: 40 mg Documented By: ELEAZAR Magnesium Sulfate/Dextrose (Magnesium Sulfate / D5w) 1 gm in 100 mls @ 100 mls/hr IV NOW STA Stop: 02/03/25 23:06 Last Infusion: 02/03/25 23:41 Dose: Infused Documented By: Admin: 02/03/25 22:19 Dose: 100 mls/hr Documented By: ELEAZAR Ioversol (Optiray 320 100ml) 93 ml IV ONCE ONE Stop: 02/03/25 21:40 Last Admin: 02/03/25 21:39 Dose: 93 ml Documented By: KAYE Imaging Data Radiologist's Impression: Chest X-Ray 02/03/25 20:38 Exam(s): XR CXR 1 VIEW EXAM: XR Chest, 1 View CLINICAL HISTORY: Reason for exam: Chest pain, nonspecific. TECHNIQUE: Frontal view of the chest. COMPARISON: 01/24/2025 FINDINGS: Lungs: There is mild left basilar subsegmental atelectasis. The lungs are otherwise clear. Pleural space: Unremarkable. No pneumothorax. Heart: Unremarkable. No cardiomegaly. Mediastinum: Unremarkable. Normal mediastinal contour. Bones/joints: Unremarkable. No acute fracture. IMPRESSION: There is mild left basilar subsegmental atelectasis. The lungs are otherwise clear. Electronically signed by: Julian Perez MD 02/03/25 22:51 PM Abdomen/Pelvis CT 02/03/25 20:53 Exam(s): CT ABDOMEN + PELVIS With Contrast IV Amt: 93 ml optiray 320 EXAM: CT Abdomen and Pelvis With Intravenous Contrast CLINICAL HISTORY: Reason for exam: swelling, history of cirrhosis. TECHNIQUE: Axial computed tomography images of the abdomen and pelvis with intravenous contrast. CTDI is 22.81 mGy and DLP is 1177.45 mGy-cm. Automated exposure control was utilized for the study. A dose lowering technique was utilized adhering to the principles of ALARA. CONTRAST: Patient received 93 ml optiray 320 of IV contrast COMPARISON: CT abdomen and pelvis: 06/03/2024 FINDINGS: Lung bases: There is mild left posterior basilar subsegmental atelectasis. Lung bases are otherwise clear. ABDOMEN: Liver: There is hepatic cirrhosis with heterogeneous attenuation, capsular retraction, nodularity and caudate hypertrophy. No hypervascular or suspicious hepatic mass identified. Gallbladder and bile ducts: The gallbladder is contracted. There is a small intraluminal gallstone. No ductal dilation. Pancreas: Unremarkable. No mass. No ductal dilation. Spleen: Unremarkable. No splenomegaly. Adrenals: Unremarkable. No mass. Kidneys and ureters: Unremarkable. No solid mass. No hydronephrosis. Stomach and bowel: Unremarkable. No obstruction. No mucosal thickening. PELVIS: Appendix: No findings to suggest acute appendicitis. Bladder: Unremarkable. No mass. Reproductive: Unremarkable as visualized. ABDOMEN and PELVIS: Intraperitoneal space: There is a moderate volume of abdominal ascites. No free air. Bones/joints: No acute fracture. No dislocation. There is moderately advanced L4-5 degenerative disc disease. Soft tissues: Unremarkable. Vasculature: Unremarkable. No abdominal aortic aneurysm. Lymph nodes: Unremarkable. No enlarged lymph nodes. IMPRESSION: 1. Hepatic cirrhosis with moderate volume of abdominal and pelvic ascites. No hypervascular or suspicious hepatic mass identified. 2. Cholelithiasis. Electronically signed by: Julian Perez MD 02/03/25 23:11 PM Discharge Plan Visit Data Chief Complaint: Swelling/Edema to Extremity Stated Complaint: STIFF JOINTS, BODY SWELLING, SOB, DIZZY ED Provider: Naif Segovia Discharge Problem: Abdominal ascites, Acute hyponatremia, Cirrhosis of liver Patient Disposition: Being Evaluated by Hospitalist Forms Stand Alone Forms: [facility] [employer] Prescriptions Prescriptions: No Action furosemide 20 mg tablet 20 mg PO DAILY cyclobenzaprine 5 mg tablet 5 mg PO BID PRN (Reason: MUSCLE SPASMS) cholecalciferol (vitamin D3) [Vitamin D3] 125 mcg (5,000 unit) Tablet 125 mcg PO QAM thiamine HCl (vitamin B1) 100 mg Tablet 100 mg PO QAM Qty: 30 0RF folic acid 1 mg Tablet 1 mg PO QAM Qty: 30 0RF pantoprazole 40 mg tablet,delayed release (DR/EC) 40 mg PO BID Qty: 60 0RF Referrals Referrals: Misael Vail MD [Primary Care Provider] -
[2025-02-03 21:06] LABS: Basophils # (auto) 0.06 K/uL (0.00-0.20); Basophils % (auto) 0.4 %; Eosinophils # (auto) 0.09 K/uL (0.00-0.50); Eosinophils % (auto) 0.7 %; Hematocrit (blood only) 31.2 % (37.0-47.0); Hemoglobin 11.5 g/dl (12.0-16.0); Immature Granulocytes % (auto) 0.7 %; Lymphocytes # (auto) 1.99 K/uL (1.20-3.40); Lymphocytes % (auto) 14.9 %; Mean Corpuscular Hemoglobin 35.2 pg (25.0-34.0); Mean Corpuscular Hgb Conc 36.9 g/dL (32.0-36.0); Mean Corpuscular Volume 95.4 fL (80.0-100.0); Mean Platelet Volume 12.6 fL (9.4-12.4); Monocytes # (auto) 1.17 K/uL (0.11-0.59); Monocytes % (auto) 8.7 %; Neutrophils # (auto) 9.98 K/uL (1.40-6.50); Neutrophils % (auto) 74.6 %; Platelet Count 173 K/uL (130-400); RDW Coefficient of Variation 20.7 % (11.5-14.5); RDW Standard Deviation 71.3 fL (36.4-46.3); Red Blood Count 3.27 M/uL (4.20-5.40); White Blood Count 13.39 K/ul (4.8-10.8)
[2025-02-03 21:25] LABS: Albumin Globulin Ratio 1.1 (0.9-2); Albumin Level 3.5 gm/dl (3.4-5.0); BUN Creatinine Ratio 6.1 (10-20); Bilirubin,Total 5.9 mg/dl (0.2-1.0); Calcium 8.3 mg/dl (8.6-10.3); Creatinine Clr Calc Pharmacy 88.1 ml/min; Globulin 3.1 gm/dl (2.5-4.0); Magnesium 1.3 mg/dl (1.7-2.4); Potassium 3.1 mmol/L (3.5-5.1); Total Protein 6.6 gm/dl (6.0-8.3)
[2025-02-03 21:32] LABS: INR 1.6 (0.9-1.1); Partial Thromboplastin Ratio 1.1; Partial Thromboplastin Time 30 Seconds (21-31); Prothrombin Time 16.4 Seconds (9.0-12.0)
[2025-02-03] MEDS: OPTIRAY 320 100ml IV ONE (21:39)
[2025-02-03 21:45] LABS: Influenza A virus by PCR Negative (Neg); Influenza B virus by PCR Negative (Neg); RSV by PCR Negative (Neg); SARS CoV2 RNA(COVID-19) Ceph NEGATIVE (Negative)
[2025-02-03 21:46] LABS: Thyroid Stimulating Hormone 6.144 uIu/ml (0.300-4.500); Troponin I High Sensitivity 13.2 pg/ml (0-14)
[2025-02-03] MEDS: FUROSEMIDE 40 MG/4 ML VIAL IV ONE (21:51)
[2025-02-03] MEDS: MAGNESIUM SULFATE / D5W 1 GM/100 ML BAG IV STA (22:19)
[2025-02-03 22:33] LABS: T4 Free Thyroxine 1.54 ng/dl (0.61-1.60)
--- NOTE | 2025-02-03 22:52 | XRay Report ---
Exam(s): XR CXR 1 VIEW EXAM: XR Chest, 1 View CLINICAL HISTORY: Reason for exam: Chest pain, nonspecific. TECHNIQUE: Frontal view of the chest. COMPARISON: 01/24/2025 FINDINGS: Lungs: There is mild left basilar subsegmental atelectasis. The lungs are otherwise clear. Pleural space: Unremarkable. No pneumothorax. Heart: Unremarkable. No cardiomegaly. Mediastinum: Unremarkable. Normal mediastinal contour. Bones/joints: Unremarkable. No acute fracture. IMPRESSION: There is mild left basilar subsegmental atelectasis. The lungs are otherwise clear. Electronically signed by: Julian Perez MD 02/03/25 22:51 PM
[2025-02-03 22:57] LABS: Anisocytosis Present
--- NOTE | 2025-02-03 23:12 | CT Scan Report ---
Exam(s): CT ABDOMEN + PELVIS With Contrast IV Amt: 93 ml optiray 320 EXAM: CT Abdomen and Pelvis With Intravenous Contrast CLINICAL HISTORY: Reason for exam: swelling, history of cirrhosis. TECHNIQUE: Axial computed tomography images of the abdomen and pelvis with intravenous contrast. CTDI is 22.81 mGy and DLP is 1177.45 mGy-cm. Automated exposure control was utilized for the study. A dose lowering technique was utilized adhering to the principles of ALARA. CONTRAST: Patient received 93 ml optiray 320 of IV contrast COMPARISON: CT abdomen and pelvis: 06/03/2024 FINDINGS: Lung bases: There is mild left posterior basilar subsegmental atelectasis. Lung bases are otherwise clear. ABDOMEN: Liver: There is hepatic cirrhosis with heterogeneous attenuation, capsular retraction, nodularity and caudate hypertrophy. No hypervascular or suspicious hepatic mass identified. Gallbladder and bile ducts: The gallbladder is contracted. There is a small intraluminal gallstone. No ductal dilation. Pancreas: Unremarkable. No mass. No ductal dilation. Spleen: Unremarkable. No splenomegaly. Adrenals: Unremarkable. No mass. Kidneys and ureters: Unremarkable. No solid mass. No hydronephrosis. Stomach and bowel: Unremarkable. No obstruction. No mucosal thickening. PELVIS: Appendix: No findings to suggest acute appendicitis. Bladder: Unremarkable. No mass. Reproductive: Unremarkable as visualized. ABDOMEN and PELVIS: Intraperitoneal space: There is a moderate volume of abdominal ascites. No free air. Bones/joints: No acute fracture. No dislocation. There is moderately advanced L4-5 degenerative disc disease. Soft tissues: Unremarkable. Vasculature: Unremarkable. No abdominal aortic aneurysm. Lymph nodes: Unremarkable. No enlarged lymph nodes. IMPRESSION: 1. Hepatic cirrhosis with moderate volume of abdominal and pelvic ascites. No hypervascular or suspicious hepatic mass identified. 2. Cholelithiasis. Electronically signed by: Julian Perez MD 02/03/25 23:11 PM
--- NOTE | 2025-02-03 23:55 | History & Physical Report ---
Date of Service February 03, 2025 Assessment & Plan (1) Acute hyponatremia: Plan: Acute on chronic hyponatremia secondary to decompensated alcoholic cirrhosis presenting as ascites hypertension, stable Leg swelling secondary to fluid retention rule out DVT hx esophageal varices status post recent banding Coagulopathy from liver disease Alcoholic hepatitis, good prognosis based on computed Maddrey's DF score of 26.1 points. Hypokalemia secondary to diuretic Rx ongoing tobacco/alcohol abuse (patient denies recent EtOH intake.) PCU Careful correction of sodium, recheck serum sodium after initial Lasix dose given at the ER Fluid restriction Hyponatremia workup, Nephrology consult Re: Acute on chronic hyponatremia GI consult re: ascites, decompensated cirrhosis Vitamin K to reverse coagulopathy in anticipation of paracentesis LE venous Dopplers rule out DVT SEDA S at risk protocol, DT precautions Replace electrolytes Nicotine patch DVT prophylaxis. SCDs if no DVT on venous Dopplers Re: Recent GI bleed Full code Text document was generated using [employer] voice recognition software. It may contain grammatical or spelling errors. Kindly contact undersigned for clarification of any documentation item in question. History of Present Illness Chief Complaint: Abdominal distention Primary Care Provider: Misael Vail MD History obtained from patient and records. Medical history significant for hypertension, alcoholic liver disease, esophageal varices, chronic hyponatremia, celiac disease, hyperthyroidism as per records, ongoing tobacco/alcohol abuse. Recent confinement 2 weeks ago for UGIB in the setting of portal hypertensive gastropathy. Patient found to have grade 2 esophageal varices on EGD status post banding. Patient discharged on PPI course, repeat endoscopy recommended in 2 to 3 months. Patient seen on follow-up at PCP's office yesterday. Patient complained of bilateral leg edema without chest pain, SOB. Prescribed Lasix by PCP for edema. Progressive leg edema to involve abdomen. No pain except for bending down. No fever, no chills. Patient denies recent EtOH intake. Patient directed to ER for evaluation. IV Lasix administered at the ER. 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 Allergies Allergy/AdvReac Type Severity Reaction Status Date / Time gluten Allergy Unknown Hives Verified 02/03/25 23:01 prednisone AdvReac Intermediate Nausea,vomiting Verified 02/03/25 23:01 and diarrhea Home Medications Medication Instructions Recorded Confirmed Type cholecalciferol (vitamin D3) 125 125 mcg PO QAM 01/24/25 02/03/25 History mcg (5,000 unit) tablet (Vitamin D3) folic acid 1 mg tablet 1 mg PO QAM #30 tabs 01/27/25 02/03/25 Rx pantoprazole 40 mg tablet,delayed 40 mg PO BID #60 tabs 01/27/25 02/03/25 Rx release thiamine HCl (vitamin B1) 100 mg 100 mg PO QAM #30 tabs 01/27/25 02/03/25 Rx tablet cyclobenzaprine 5 mg tablet 5 mg PO BID PRN MUSCLE SPASMS 02/03/25 02/03/25 History furosemide 20 mg tablet 20 mg PO DAILY 02/03/25 02/03/25 History Past Med/Surg History Problem List Cirrhosis of liver (Acute) Acute hyponatremia (Acute) Abdominal ascites (Acute) Hematemesis Alcohol use Encounter for pre-operative examination Hypotension Acute upper gastrointestinal bleeding (Acute) Hyperbilirubinemia (Acute) Abnormal urinalysis (Acute) Lactic acidosis (Acute) Transaminitis (Acute) Jaundice (Acute) Medical History Portal hypertensive gastropathy Syncope Alcoholic hepatitis Hyperbilirubinemia Prolonged QT interval Alcoholism, chronic Hypomagnesemia Hypokalemia Acute upper gastrointestinal bleeding Hyponatremia Celiac disease Tobacco use Surgical History H/O eye surgery Family History Other Prostate cancer Stroke Social History Smoking Status: Current every day smoker Tobacco Type: Cigarettes Cigarettes Per Day: 1 PPD; Second Hand Exposure: Yes; Do You Dip or Chew Tobacco: No; Hx Alcohol Use: Yes (quit 2 months ago) Alcohol type: hard liquor Alcohol type Comment: h/o heavy vodka intake, stopped drinking 3 weeks ago Hx Substance Use: No Preferred Language: Kittitian Communication Ability: Effective Supervisor Stave Finishing Required: No Beliefs That Will Affect Care: None marital status: Single Current Living Situation: Spouse Current Living Situation Comment: Tien Nuñez current occupational status: unemployed Other Information That Helps Us Care for You: No Feels Safe at Home: Yes Safety Concerns: Feels Safe At This Time Assistive Devices: Glasses Review of Systems Review of Systems: As per HPI, all other systems reviewed and negative Physical Exam Physical Exam: GENERAL: Pleasant, comfortable, no respiratory distress SKIN: Pallor, warm HEENT: Bespectacled, pale palpebral conjunctivae, no ptosis, dry buccal mucosa NECK : Supple, no tenderness CHEST : Decreased breath sounds, no tenderness HEART : RRR, no obvious murmurs ABDOMEN: Marked distention, nontender, positive fluid wave EXTREMITIES : Bilateral LE swelling without tenderness, no other conspicuous deformities noted NEUROLOGIC : Coherent, no facial asymmetry, no other gross focality Results & Data Results & Data Vital Signs (Past 12 Hours) Vital Signs Temp Pulse Pulse Resp BP BP Pulse Ox 02/03/25 23:15 90 13 110/79 90 02/03/25 23:03 89 14 118/81 93 02/03/25 22:31 91 H 14 126/81 93 02/03/25 20:54 92 H 18 95 02/03/25 20:54 95 02/03/25 20:54 85 18 113/71 95 02/03/25 20:45 87 02/03/25 20:32 36.6 C 94 H 18 102/72 95 O2 Del Method 02/03/25 23:15 Room Air 02/03/25 23:03 Room Air 02/03/25 22:31 Room Air 02/03/25 20:54 Room Air 02/03/25 20:54 Room Air 02/03/25 20:54 Room Air 02/03/25 20:45 02/03/25 20:32 Room Air Laboratory Results Laboratory Results WBC 13.39 K/ul (4.8-10.8) H 02/03/25 20:49 RBC 3.27 M/uL (4.20-5.40) L 02/03/25 20:49 Hgb 11.5 g/dl (12.0-16.0) L 02/03/25 20:49 Hct 31.2 % (37.0-47.0) L 02/03/25 20:49 MCV 95.4 fL (80.0-100.0) 02/03/25 20:49 MCH 35.2 pg (25.0-34.0) H 02/03/25 20:49 MCHC 36.9 g/dL (32.0-36.0) H 02/03/25 20:49 RDW Std Deviation 71.3 fL (36.4-46.3) H 02/03/25 20:49 RDW Coeff of Car 20.7 % (11.5-14.5) H 02/03/25 20:49 Plt Count 173 K/uL (130-400) 02/03/25 20:49 MPV 12.6 fL (9.4-12.4) H 02/03/25 20:49 Immature Gran % (Auto) 0.7 % 02/03/25 20:49 Neut % (Auto) 74.6 % 02/03/25 20:49 Lymph % (Auto) 14.9 % 02/03/25 20:49 Lyon % (Auto) 8.7 % 02/03/25 20:49 Eos % (Auto) 0.7 % 02/03/25 20:49 Baso % (Auto) 0.4 % 02/03/25 20:49 Neut # (Auto) 9.98 K/uL (1.40-6.50) H 02/03/25 20:49 Lymph # (Auto) 1.99 K/uL (1.20-3.40) 02/03/25 20:49 Lyon # (Auto) 1.17 K/uL (0.11-0.59) H 02/03/25 20:49 Eos # (Auto) 0.09 K/uL (0.00-0.50) 02/03/25 20:49 Baso # (Auto) 0.06 K/uL (0.00-0.20) 02/03/25 20:49 Immature Gran # (Auto) 0.10 K/uL (0.01-0.20) 02/03/25 20:49 Anisocytosis Present 02/03/25 20:49 PT 16.4 Seconds (9.0-12.0) H 02/03/25 20:49 INR 1.6 (0.9-1.1) H 02/03/25 20:49 APTT 30 Seconds (21-31) 02/03/25 20:49 PTT Ratio 1.1 02/03/25 20:49 Sodium 118 mmol/L (136-145) L* 02/03/25 20:49 Potassium 3.1 mmol/L (3.5-5.1) L 02/03/25 20:49 Chloride 85 mmol/L (98-107) L 02/03/25 20:49 Carbon Dioxide 27 mmol/L (21-32) 02/03/25 20:49 Anion Gap 6 (3-11) 02/03/25 20:49 BUN 4 mg/dl (6-23) L 02/03/25 20:49 Creatinine 0.66 mg/dl (0.6-1.2) 02/03/25 20:49 Est Cr Clr Drug Dosing 88.1 ml/min 02/03/25 20:49 eGFR 100.36 02/03/25 20:49 BUN/Creatinine Ratio 6.1 (10-20) L 02/03/25 20:49 Glucose 109 mg/dl (70-99(Fasting)) H 02/03/25 20:49 Calcium 8.3 mg/dl (8.6-10.3) L 02/03/25 20:49 Magnesium 1.3 mg/dl (1.7-2.4) L 02/03/25 20:49 Total Bilirubin 5.9 mg/dl (0.2-1.0) H 02/03/25 20:49 AST 136 U/L (13-39) H 02/03/25 20:49 ALT 46 U/L (7-52) 02/03/25 20:49 Alkaline Phosphatase 197 U/L (34-104) H 02/03/25 20:49 Troponin I High Sens 13.2 pg/ml (0-14) 02/03/25 20:49 B-Natriuretic Peptide 61 pg/ml (0-100) 02/03/25 20:49 Total Protein 6.6 gm/dl (6.0-8.3) 02/03/25 20:49 Albumin 3.5 gm/dl (3.4-5.0) 02/03/25 20:49 Globulin 3.1 gm/dl (2.5-4.0) 02/03/25 20:49 Albumin/Globulin Ratio 1.1 (0.9-2) 02/03/25 20:49 Lipase 27 U/L (11-82) 02/03/25 20:49 TSH 6.144 uIu/ml (0.300-4.500) H 02/03/25 20:49 Free T4 1.54 ng/dl (0.61-1.60) 02/03/25 20:49 Ethyl Alcohol mg/dL < 10.0 mg/dl (<10.0) 02/03/25 20:59 SARS-CoV-2 (PCR) NEGATIVE (Negative) 02/03/25 20:49 Influenza Type A (PCR) Negative (Neg) 02/03/25 20:49 Influenza Type B (PCR) Negative (Neg) 02/03/25 20:49 RSV (RT-PCR) Negative (Neg) 02/03/25 20:49 Impressions Chest X-Ray 02/03/25 20:38 Exam(s): XR CXR 1 VIEW EXAM: XR Chest, 1 View CLINICAL HISTORY: Reason for exam: Chest pain, nonspecific. TECHNIQUE: Frontal view of the chest. COMPARISON: 01/24/2025 FINDINGS: Lungs: There is mild left basilar subsegmental atelectasis. The lungs are otherwise clear. Pleural space: Unremarkable. No pneumothorax. Heart: Unremarkable. No cardiomegaly. Mediastinum: Unremarkable. Normal mediastinal contour. Bones/joints: Unremarkable. No acute fracture. IMPRESSION: There is mild left basilar subsegmental atelectasis. The lungs are otherwise clear. Electronically signed by: Julian Perez MD 02/03/25 22:51 PM Abdomen/Pelvis CT 02/03/25 20:53 Exam(s): CT ABDOMEN + PELVIS With Contrast IV Amt: 93 ml optiray 320 EXAM: CT Abdomen and Pelvis With Intravenous Contrast CLINICAL HISTORY: Reason for exam: swelling, history of cirrhosis. TECHNIQUE: Axial computed tomography images of the abdomen and pelvis with intravenous contrast. CTDI is 22.81 mGy and DLP is 1177.45 mGy-cm. Automated exposure control was utilized for the study. A dose lowering technique was utilized adhering to the principles of ALARA. CONTRAST: Patient received 93 ml optiray 320 of IV contrast COMPARISON: CT abdomen and pelvis: 06/03/2024 FINDINGS: Lung bases: There is mild left posterior basilar subsegmental atelectasis. Lung bases are otherwise clear. ABDOMEN: Liver: There is hepatic cirrhosis with heterogeneous attenuation, capsular retraction, nodularity and caudate hypertrophy. No hypervascular or suspicious hepatic mass identified. Gallbladder and bile ducts: The gallbladder is contracted. There is a small intraluminal gallstone. No ductal dilation. Pancreas: Unremarkable. No mass. No ductal dilation. Spleen: Unremarkable. No splenomegaly. Adrenals: Unremarkable. No mass. Kidneys and ureters: Unremarkable. No solid mass. No hydronephrosis. Stomach and bowel: Unremarkable. No obstruction. No mucosal thickening. PELVIS: Appendix: No findings to suggest acute appendicitis. Bladder: Unremarkable. No mass. Reproductive: Unremarkable as visualized. ABDOMEN and PELVIS: Intraperitoneal space: There is a moderate volume of abdominal ascites. No free air. Bones/joints: No acute fracture. No dislocation. There is moderately advanced L4-5 degenerative disc disease. Soft tissues: Unremarkable. Vasculature: Unremarkable. No abdominal aortic aneurysm. Lymph nodes: Unremarkable. No enlarged lymph nodes. IMPRESSION: 1. Hepatic cirrhosis with moderate volume of abdominal and pelvic ascites. No hypervascular or suspicious hepatic mass identified. 2. Cholelithiasis. Electronically signed by: Julian Perez MD 02/03/25 23:11 PM Diagnostic Findings EKG as per my interpretation :Rate 90, NSR, normal axis, nonspecific T wave abnormalities, low voltage
[2025-02-03] MEDS ORDERED: PROMETHAZINE 6.25 MG/50.25 ML BAG IV PRN (23:59)
[2025-02-03] MEDS ORDERED: ACETAMINOPHEN 500 MG TAB PO PRN (23:59)
[2025-02-03] MEDS ORDERED: oxyCODONE HCL IR 5 MG TAB (IMMEDIATE RELEASE) PO PRN (23:59)
[2025-02-04] MEDS ORDERED: LORazepam 2 MG/1 ML VIAL IV PRN (00:01)
[2025-02-04] MEDS: THIAMINE HCL 100 MG in SYRINGE 9 ML IV STA (00:34)
[2025-02-04] MEDS: PHYTONADIONE 10 MG in DEXTROSE 5% 50 ML IV ONE (01:20)
[2025-02-04] MEDS: POTASSIUM CHLORIDE CRTAB 20 MEQ TABCR PO STA ×3 (01:23→09:13)
[2025-02-04] MEDS: ALBUMIN 25% 25 GM/100 ML VIAL IV ONE (01:51)
[2025-02-04 02:12] LABS: Appearance Urine Clear (Clear); Bilirubin Urine Negative (Negative); Blood Urine Negative (Negative); Color Urine Yellow; Glucose Urine UA Negative (Negative); Ketones Urine Negative (Negative); Leukocyte Esterase Urine Negative (Negative); Nitrite Urine Negative (Negative); Protein Urine Negative (Negative); Urobilinogen Urine Negative (Negative); pH Urine 5.5 (4.5-7.5)
[2025-02-04] MEDS: NICOTINE 21 MG/24 HR TDSY TD SCH (03:21)
[2025-02-04] MEDS: MAGNESIUM SULFATE / D5W 1 GM/100 ML BAG IV SCH (04:06)
--- NOTE | 2025-02-04 04:19 | Ultrasound Report ---
EXAM: US venous doppler LE BI CLINICAL HISTORY: Leg swelling. TECHNIQUE: Ultrasound examination of bilateral lower extremity veins was performed in real time and duplex. One or more of the following were performed- spectral analysis, resistive index, waveform analysis, and pulsed Doppler. COMPARISON: None. FINDINGS: Normal phasic, non-pulsatile, and spontaneous flow is noted in bilateral common femoral, superficial femoral, popliteal, anterior tibial and posterior tibial and peroneal veins. Visualized veins of both lower extremities demonstrate normal compressibility. No sonographic evidence of acute deep vein thrombosis (DVT) is detected in the visualized veins of both lower extremities. Compression and Augmentation: All evaluated veins compress fully with applied transducer pressure. Augmentation of venous flow is noted with distal compression. Additional Findings: Subcutaneous edema was seen in both legs. IMPRESSION: 1. No sonographic evidence of acute DVT was detected in bilateral common femoral, superficial femoral, popliteal, anterior tibial, posterior tibial and peroneal veins, at the time of examination. 2. Diffuse subcutaneous edema seen in both legs. Disclaimer: DVT could be missed early in the disease when the clot burden is minimal. For patients with moderate and high pretest probability of DVT and negative ultrasound, the [employer] clinical guidelines recommend testing with a D-dimer assay or repeat ultrasound in 5-7 days. If symptoms worsen, the Society of [employer] in Ultrasound recommends repeating ultrasound even earlier. Electronically signed by Jesus Garcia 02-04-2025 04:18 AM
[2025-02-04 04:42] LABS: Basophils # (auto) 0.04 K/uL (0.00-0.20); Basophils % (auto) 0.4 %; Eosinophils # (auto) 0.06 K/uL (0.00-0.50); Eosinophils % (auto) 0.5 %; Hematocrit (blood only) 29.6 % (37.0-47.0); Hemoglobin 10.6 g/dl (12.0-16.0); Immature Granulocytes % (auto) 0.9 %; Lymphocytes # (auto) 1.64 K/uL (1.20-3.40); Lymphocytes % (auto) 14.4 %; Mean Corpuscular Hemoglobin 34.2 pg (25.0-34.0); Mean Corpuscular Hgb Conc 35.8 g/dL (32.0-36.0); Mean Corpuscular Volume 95.5 fL (80.0-100.0); Mean Platelet Volume 12.5 fL (9.4-12.4); Monocytes # (auto) 1.04 K/uL (0.11-0.59); Monocytes % (auto) 9.1 %; Neutrophils # (auto) 8.49 K/uL (1.40-6.50); Neutrophils % (auto) 74.7 %; Platelet Count 150 K/uL (130-400); RDW Coefficient of Variation 20.8 % (11.5-14.5); RDW Standard Deviation 71.3 fL (36.4-46.3); White Blood Count 11.37 K/ul (4.8-10.8)
[2025-02-04 04:56] LABS: Albumin Globulin Ratio 1.5 (0.9-2); Albumin Level 3.8 gm/dl (3.4-5.0); BUN Creatinine Ratio 9.1 (10-20); Bilirubin,Total 5.3 mg/dl (0.2-1.0); Calcium 8.4 mg/dl (8.6-10.3); Creatinine Clr Calc Pharmacy 107.8 ml/min; Globulin 2.6 gm/dl (2.5-4.0); Magnesium 1.7 mg/dl (1.7-2.4); Potassium 3.2 mmol/L (3.5-5.1); Total Protein 6.4 gm/dl (6.0-8.3)
[2025-02-04 05:14] LABS: Anisocytosis Present; Polychromasia 1+; Target Cells 1+
[2025-02-04 05:23] LABS: INR 1.6 (0.9-1.1); Prothrombin Time 16.7 Seconds (9.0-12.0)
--- NOTE | 2025-02-04 07:56 | Electrocardiogram Report ---
Test Reason : Blood Pressure : */* mmHG Vent. Rate : 86 BPM Atrial Rate : 86 BPM P-R Int : 162 ms QRS Dur : 78 ms QT Int : 374 ms P-R-T Axes : 66 34 56 degrees QTcB Int : 447 ms Normal sinus rhythm Normal ECG When compared with ECG of 24-Jan-2025 22:11, Premature ventricular complexes no longer present Nonspecific ST abnormality no longer present Confirmed by Misael Hines ([id number]) on 02/04/2025 7:55:41 AM Referred By: REFERRED SELF Confirmed By: Misael Hines
--- OUTSIDE RECORDS SUMMARY | 2025-02-04 08:17 | External Medical Summary | Summary of Care ---
Author Name Unknown Organization [facility] Address [address] [place] [address] Phone [phone] Care Team Providers Care Insurance Sales Executive Name Role Phone Misael Vail MD Primary Care Provider [phone] Reason for Visit * Reason Onset Date Comments Hospital Follow-Up Pt here with mother, c/o edema. Pt states she has swelling in abd, in arms, bilateral legs/feet Hospital Follow-Up 02/03/2025 Encounter Details Date Type Department Care Team (Late st Contact Info) Description 02/03/2025 11:00 AM EDT Office Visit Family [facility] [address] [facility] [place] [id number] Misael Vail MD [address] [facility] [place] [address] Hospital discharge follow-up*; Alcoholism, chronic (HCC); Esophageal varices determined by endoscopy ([facility]) Allergies Active Allergy Reactions Criticality Noted Date Comments Gluten Abdominal pain 07/03/2014 Gas, bloating Prednisone Diarrhea,Nausea/vomiting 07/08/2019 documented as of this encounter (statuses as of 02/03/2025) Medications pyridOXINE (VITAMIN B-6) 100 MG Tablet 1 Tablet. 06/28/20 Active Vitamin D3 125 MCG (5000 UT) Oral Capsule Take 1 Capsule by mouth in the morning. Active Zinc 25 MG Oral Tablet Take by mouth daily. Active [employer] Pollen 1:20 Subcutaneous Solution Inject under the skin. Active Vitamin B-12 500 MCG Sublingual Tablet Sublingual (Vitamin B-12)Indications :as needed Place 1 Tablet under the tongue in the morning. Active Calcium Lactate 100 MG Oral Tablet Take by mouth. Active Oil of Oregano 1500 MG Oral Capsule Take by mouth. Active Benzonatate 100 MG Oral Capsule Take 1 Capsule by mouth 3 times a day as needed for Cough. 30 Capsule 1 01/04/2025 9:07 AM EST 11/23/19 25 Active Folic Acid 1 MG Oral Tablet take 1 tablet (1 mg) orally daily in the morning 30 Tablet 01/27/2025 2:19 PM EDT 01/28/20 25 Active Pantoprazole Sodium 40 MG Oral Tablet Delayed Release (Protonix) take 1 tablet (40 mg) orally twice a day 60 Tablet 01/27/2025 2:19 PM EDT 01/28/20 25 Active Thiamine HCl 100 MG Oral Tablet (vitamin B-1) take 1 tablet (100 mg) orally daily in the morning 30 Tablet 01/27/2025 2:19 PM EDT 01/28/20 25 Active Furosemide 20 MG Oral Tablet (Lasix) Take 1 Tablet by mouth in the morning. 30 Tablet 11 02/03/2025 11:46 AM EDT 02/04/20 25 Active Potassium Bicarbonate 99 MG Oral Capsule Take by mouth. Twice weekly 025 Discontinued Carvedilol 6.25 MG Oral Tablet (Coreg) Take 1 Tablet by mouth 2 times a day with morning and evening meals. 30 Tablet 1 08/26/2024 9:11 AM EDT 08/26/20 24 025 Discontinued Pantoprazole Sodium 40 MG Oral Tablet Delayed Release (Protonix) Take 1 Tablet by mouth in the morning. 180 Tablet 1 09/09/2024 3:29 PM EDT 09/09/20 24 025 Discontinued documented as of this encounter (statuses as of 02/03/2025) Active Problems Problem Noted Date Diagnosed Date Osteopenia of neck of left femur 09/09/2024 Vaginal dryness, menopausal 09/09/2024 HTN, goal below 130/80 04/26/2024 Fatty liver 03/01/2024 Alcoholism, chronic 01/22/2024 Gastroesophageal reflux dise ase with esophagitis without hemorrhage 01/21/2024 Esophageal varices determined by endoscopy 09/09 Celiac disease 06/02/2019 Tobacco use disorder 12/25/2015 documented as of this encounter (statuses as of 02/03/2025) Resolved Problems Problem Noted Date Diagnosed Date [...] as of this encounter (statuses as of 02/03/2025) Immunizations Name Administration Dates Next Due Diptheria/Tetanus [...] Sign Reading Time Taken Comments Blood Pressure 120/64 02/03/2025 11:11 AM EDT Pulse 84 02/03/2025 11:11 AM EDT Temperature 36.6 C (97.8 F) 02/03/2025 11:11 AM E DT Respiratory Rate 18 02/03/2025 11:11 AM EDT Oxygen Saturation - - Inhaled Oxygen Concentration - - Weight 73 kg (161 lb) 02/03/2025 11:11 AM EDT Height 172.7 cm (5' 8") 02/03/2025 11:11 AM EDT Body Mass Index 24.48 02/03/2025 11:11 AM EDT documented in this encounter Progress Notes * Misael Vail MD - 02/03/2025 12:53 PM EDT SUBJECTIVE: Sheyla Melton is a 59 year old female. Chief Complaint Patient presents with Hospital Follow-Up Pt here with mother, c/o edema. Pt states she has swelling in abd, in arms, bilateral legs/feet Hospital Follow-Up Recent Admission: Patient was recently admitted to [facility]. The date of discharge was 01/27/25. Discharge report receivedand reviewed. HPI: Admitted for etoh related GI bleed last week. Had EGD. Was counseled on etoh cessation. Today she complains of bilateral leg edema. Exam benign. Patient Active Problem List Diagnosis Tobacco use disorder Celiac disease Esophageal varices determined by endoscopy (HCC) Gastroesophageal reflux disease with esophagitis without hemorrhage Alcoholism, chronic (HCC) Fatty liver HTN, goal below 130/80 Osteopenia of neck of left femur Vaginal dryness, menopausal Current Outpatient Medications Medication Sig Dispense Refill pyridOXINE (VITAMIN B-6) 100 MG Tablet 1 Tablet. Vitamin D3 125 MCG (5000 UT) Oral Capsule Take 1 Capsule by mouth in the morning. Zinc 25 MG Oral Tablet Take by mouth daily. Vitamin B-12 500 MCG Sublingual Tablet Sublingual (Vitamin B-12) Place 1 Tablet under the tongue inthe morning. Calcium Lactate 100 MG Oral Tablet Take by mouth. Oil of Oregano 1500 MG Oral Capsule Take by mouth. Benzonatate 100 MG Oral Capsule Take 1 Capsule by mouth 3 times a day as needed for Cough. 30 Capsule 1 Folic Acid 1 MG Oral Tablet take 1 tablet (1 mg) orally daily in the morning 30 Tablet 0 Pantoprazole Sodium 40 MG Oral Tablet Delayed Release (Protonix) take 1 tablet (40 mg) orally twicea day 60 Tablet 0 Thiamine HCl 100 MG Oral Tablet (vitamin B-1) take 1 tablet (100 mg) orally daily in the morning 30Tablet 0 Furosemide 20 MG Oral Tablet (Lasix) Take 1 Tablet by mouth in the morning. 30 Tablet 11 [employer] Pollen 1:20 Subcutaneous Solution Inject under the skin. (Patient not taking: Reportedon 01/16/2025) No current facility-administered medications for this visit. Current and discharge medications have been reconciled. Review of patient's allergies indicates: Allergen Reactions Gluten Abdominal pain Gas, bloating Prednisone Diarrhea and Nausea/vomiting OBJECTIVE: BP 120/64 | Pulse 84 | Temp 97.8 F (36.6 C) | Resp 18 | Ht 5' 8" (1.727 m) | Wt 161 lb (73 kg) | BMI 24.48 kg/m | BSA 1.87 m PHYSICAL EXAM: General: alert, healthy, and no distress Head: Normocephalic, No masses, lesions, tenderness or abnormalities Heart: regular rate & rhythm, no murmur, and no gallops Lungs: chest symmetric with normal AP diameter, no chest deformities noted, no chest wall tenderness, lungs clear to auscultation Abdomen: abdomen soft, non-tender, normal bowel sounds, and no masses or organomegaly Extremities: 1 + bilateral pitting edema ASSESSMENT: Assessment & Plan Sheyla was seen today for hospital follow-up and hospital follow-up. Diagnoses and all orders for this visit: Hospital discharge follow-up - DISCH MED RECON CUR MED LIS Alcoholism, chronic (HCC) -abstaining from etoh by report Esophageal varices determined by endoscopy (HCC) -continue PPI Okay to use lasix prn edema; will check PEDRITO to ensure she does not have PAD PLAN: Continue present medication(s): Follow up as needed. I spent a total of 30-39 minutes (exact time 31 mins) minutes on the date of service in preparation, delivery, and documentation of the care provided to Sheyla Melton excluding any time spent in performance of separately billed services. Misael Vail MD documented in this encounter Plan of Treatment Upcoming Encounters Date Type Department Care Team (Late st Contact Info) Description 02/17/2025 8:00 AM EDT Imaging Vascular Lab, [facility] 2nd [facility] [address] [place] [id number] Scheduled Orders Name Type Priority Associated Diagnoses Orde r Schedule VASC ANKLE BRACHIAL INDICES WITHOUT PPG (PAD) Medical Imaging Routine Expected: 02/04/2025, Expires: 03/06/2026 Scheduled Procedures Name Priority Associated Diagnoses Date/Ti [...] 02/16/2024, 03/0 06/2024, 05/28/2020, Additional history exists Depression Screening [...] this encounter Medical Devices Implanted Type Area Modeling Manager Device Identifier Shelf Expiration Date Model / Serial / Lot Lens Intraoc 24.0 - [id number] - [id number] Implanted:Qty: 1 on 02/26/2021 by Manuel Azevedo MD at [facility] Right: Eye [employer] 04/15/2024 [id number] / [id number] / [id number] Lens Intraoc 23.5 - [id number] - [id number] Implanted:Qty: 1 on 03/12/2021 by Manuel Azevedo MD at OR [facility] Left: Eye [employer] 09/15/2025 [id number] / [id number] / [id number] documented as of this encounter Visit Diagnoses Diagnosis Hospital discharge follow-up- Primary Other follow-up examination Alcoholism, chronic (HCC) Other and unspecified alcohol dependence, unspecified drinking behavior Esophageal varices determined by endoscopy (HCC) documented in this encounter Care Teams Insurance Sales Executive Relationship Specialty Start Date End Date Misael Vail MD [address] [facility] [place] [address] PCP - General Family Medicine 06/01/24 documented as of this encounter
--- OUTSIDE RECORDS SUMMARY | 2025-02-04 08:17 | External Medical Summary | Summary of Care ---
Author Name Unknown Organization [facility] Address [address] [facility] [place] [address] Phone [phone] Care Team Providers Care Coat Checker Name Role Phone Misael Vail MD Primary Care Provider [phone] Reason for Visit * Reason Onset Date Comments Hospital Follow-Up 01/30/2025 [facility] ([facility]) Encounter Details Date Type Department Care Team (Late st Contact Info) Description 01/30/2025 [facility]phone [facility] [address] [facility] [place] [id number] Karla Garcia, MADY Hospital Follow-Up ([facility] ([facility])) Allergies Active Allergy Reactions Criticality Noted Date Comments Gluten Abdominal pain 07/03/2014 Gas, bloating Prednisone Diarrhea,Nausea/vomiting 07/08/2019 documented as of this encounter (statuses as of 01/30/2025) Medications pyridOXINE (VITAMIN B-6) 100 MG Tablet 1 Tablet. 9 Active Vitamin D3 125 MCG (5000 UT) Oral Capsule Take 1 Capsule by mouth in the morning. Active Zinc 25 MG Oral Tablet Take by mouth daily. Active [employer] Pollen 1:20 Subcutaneous Solution Inject under the [...] 1 01/04/2025 9:07 AM EST 5 Active Folic Acid 1 MG Oral Tablet take 1 tablet (1 mg) orally daily in the morning 30 Tablet 01/27/2025 2:19 PM EDT 5 Active Pantoprazole Sodium 40 MG Oral Tablet Delayed Release (Protonix) take 1 tablet (40 mg) orally twice a day 60 Tablet 01/27/2025 2:19 PM EDT 5 Active Thiamine HCl 100 MG Oral Tablet (vitamin B-1) take 1 tablet (100 mg) orally daily in the morning 30 Tablet 01/27/2025 2:19 PM EDT 5 Active documented as of this encounter (statuses as of 01/30/2025) Active Problems Problem Noted Date Diagnosed Date Osteopenia of neck of left femur 09/09/2024 Vaginal dryness, menopausal 09/09/2024 HTN, goal below 130/80 04/26/2024 Fatty liver 03/01/2024 Alcoholism, chronic 01/22/2024 Gastroesophageal reflux dise ase with esophagitis without hemorrhage 01/21/2024 Esophageal varices determined by endoscopy 09/09 Celiac disease 06/02/2019 Tobacco use disorder 12/25/2015 documented as of this encounter (statuses as of 01/30/2025) Resolved Problems Problem Noted Date Diagnosed Date [...] as of this encounter (statuses as of 01/30/2025) Immunizations Name Administration Dates Next Due Diptheria/Tetanus [...] encounter Miscellaneous Notes * Telephone Encounter - Karla Garcia RN - 01/30/2025 1:28 PM EDT Transitions of Care Note Reason for Referral:Recent Admission Phone visit for follow up: JOANN Admitted to: [facility], Date: 01/24/2025 Discharged to: Home, Date: 01/27/2025 Diagnosis driving hospitalization: Upper GI Bleed, Portal Hypertensive Gastropathy 01/25/2025 - EGD Source/Contact: Patient SUBJECTIVE Consent: Verbal consent for review of hospital discharge: Yes REVIEW OF SYSTEMS Patient/Other Reports: Current patient/caregiver problems or concerns: Patient states she is doing well, just "tired". Eating and drinking well. Denies dark or bloody stool. CV: Denies problems Pulmonary: Denies problems Chills/Sweats/Fever:Denies chills/sweats Denies fever Appetite:Denies problems such as nausea, vomiting, burning, decreased appetite Current diet: Regular, 1500 ml Fluid Restriction Bowel: denies problems Bladder: denies problems Wound (If applicable): N/A Pain:Denies Sleep:Denies problems FUNCTIONAL STATUS: ADL'S: Needs Assistance With:N/A as pt is independent IADL'S: Needs Assistance With:N/A as pt is independent Cognitive and Mental Health: denies problems, alert and oriented x 3, and able to communicate, understand instructions, process information. MEDICATION RECONCILIATION Medications: Discharge med list reviewed with patient or caregiver ASSESSMENT Medication Risk Assessment: No risks identified Discharge instructions available for review? Yes PLAN Symptom Monitoring Interventions:Member/caregiver education - signs and symptoms to contact PrimaryCare (DO NOT DELETE-Three pabon symptoms patient is to report to PCP) 1. Dark or bloody stool 2. Blood with emesis 3. Chest Pain/SOB Clarifier OperatorPurchasing Assistant of Care interventions/Action Plan: 5 - 7 day follow-up with PCP in place - Date: PCP appointment 02/03/2025 Educated on role of JOANN completed with patient/caregiver. Educated patient/caregiver on patient right to have input on JOANN plan of care. Verification of Home Health/DME if indicated: No Identified Care Gaps: Yes Care Gaps closed this call: Appointment made or confirmed and Transition of Care follow-up communication Re-evaluation of Plan of Care and progress towards goals achievement: Patient education this visit: Verbal, Confirmed PCP appointment, addressed reasons to call sooner as above Plan to instructed to call Primary Care Provider with change in symptoms or as needed before next follow-up, discharge needs met, verbalizes understanding and agrees with plan. Karla Garcia, RN documented in this encounter Plan of Treatment Upcoming Encounters Date Type Department Care Team (Late st Contact Info) Description 02/03/2025 11:00 AM EDT Office Visit Family [facility] [address] [place] [address] Misael Vail MD [address] [place] [address] Scheduled Procedures Name Priority Associated Diagnoses Date/Ti [...] 02/15/2025 02/16/2024, 0306/2024, 05/28/2020, Additional history exists Depression Screening 01/16/2026 [...] this encounter Medical Devices Implanted Type Area Seismic Prospecting Supervisor Device Identifier Shelf Expiration Date Model / Serial / Lot Lens Intraoc 24.0 - [id number] - [id number] Implanted:Qty: 1 on 02/26/2021 by Manuel Azevedo MD at OR [facility] Right: Eye [employer] 04/15/2024 [id number] / [id number] / [id number] Lens [employer] 23.5 - [id number] - [id number] Implanted:Qty: 1 on 03/12/2021 by Manuel Azevedo MD at OR [facility] Left: Eye [employer] 09/15/2025 [id number] / [id number] / [id number] documented as of this encounter Care Teams Coat Checker Relationship Specialty Start Date End Date Misael Vail MD [address] [place] [id number] PCP - General Family Medicine 06/01/24 documented as of this encounter
[2025-02-04] MEDS: FOLIC ACID 1 MG TAB PO SCH (09:13)
[2025-02-04] MEDS: MULTIVITAMIN TAB PO SCH (09:13)
[2025-02-04] MEDS: PANTOprazole 40 MG TAB PO SCH (09:13)
[2025-02-04] MEDS: MAGNESIUM SULFATE / D5W 1 GM/100 ML BAG IV ONE (09:13)
--- NOTE | 2025-02-04 09:29 | Gastrointestinal Consultation ---
Date of Consultation February 04, 2025 Assessment & Plan (1) Abdominal ascites: Pleasant woman with alcoholic liver disease, now with ascites and lower extremity edema. Fluid status in someone with liver disease is best managed as an outpatient as the patient will be free to consume as much salt and water as they want whereas in the hospital we can limit that. I agree with using lasix as she has lower extremity edema but she should probably go home on spironolactone as well. Nephrology will be seeing her so I will let them choose her diuretics. I discussed with her about sodium restriction in her diet as an outpatient as well as limiting the amount of free water she takes in. I also suggested to her to follow her weight and also that she will need close follow up until her fluid status is stabilized. She has quit drinking, I suggested she do AA just in case her liver disease worsens and transplant is considered. History of Present Illness Reason for Consultation: ascites Attending Physician: Sammi Ortiz MD History of Present Illness 59 year old female with alcohol related liver disease who over the past week or so has noticed swelling in her lower extremities. This progressed to her abdomen and she said her abdomen "looked like she was 6 months " and it was rock hard. Since she has been in the hospital she is peeing a lot and she feels much better. She notes her legs are still a little swollen. Her abdomen is also still swollen but both are much better. She has had not other issues with her gut and has been feeling well. She has not had any alcohol for the past two months and only had limited alcohol for the two months prior. She has not gone to AA. She has not passed any blood in her stools. Allergies Allergy/AdvReac Type Severity Reaction Status Date / Time gluten Allergy Unknown Hives Verified 02/03/25 23:01 prednisone AdvReac Intermediate Nausea,vomiting Verified 02/03/25 23:01 and diarrhea Home Medications Medication Instructions Recorded Confirmed Type cholecalciferol (vitamin D3) 125 125 mcg PO QAM 01/24/25 02/03/25 History mcg (5,000 unit) tablet (Vitamin D3) folic acid 1 mg tablet 1 mg PO QAM #30 tabs 01/27/25 02/03/25 Rx pantoprazole 40 mg tablet,delayed 40 mg PO BID #60 tabs 01/27/25 02/03/25 Rx release thiamine HCl (vitamin B1) 100 mg 100 mg PO QAM #30 tabs 01/27/25 02/03/25 Rx tablet cyclobenzaprine 5 mg tablet 5 mg PO BID PRN MUSCLE SPASMS 02/03/25 02/03/25 History furosemide 20 mg tablet 20 mg PO DAILY 02/03/25 02/03/25 History Patient History Medical History Portal hypertensive gastropathy Syncope Alcoholic hepatitis Hyperbilirubinemia Prolonged QT interval Alcoholism, chronic Hypomagnesemia Hypokalemia Acute upper gastrointestinal bleeding Hyponatremia Celiac disease Tobacco use Surgical History H/O eye surgery Family History Other Prostate cancer Stroke Social History Smoking Status: Current every day smoker Tobacco Type: Cigarettes Cigarettes Per Day: 1 PPD; Second Hand Exposure: Yes; Do You Dip or Chew Tobacco: No; Hx Alcohol Use: Yes (quit 2 months ago) Alcohol type: hard liquor Alcohol type Comment: h/o heavy vodka intake, stopped drinking 3 weeks ago Hx Substance Use: No Preferred Language: Egyptian Communication Ability: Effective Clear Coat Sprayer Required: No Beliefs That Will Affect Care: None marital status: Single Current Living Situation: Spouse Current Living Situation Comment: Tien Nuñez current occupational status: unemployed Other Information That Helps Us Care for You: No Feels Safe at Home: Yes Safety Concerns: Feels Safe At This Time Assistive Devices: Glasses Review of Systems Review of Systems: All systems reviewed & are unremarkable except as noted in HPI & below Physical Exam Physical Exam: She looks comfortable Constitutional: WD/WN, vitals as above Neck: trachea midline, no thyromegaly Respiratory: normal respiratory effort, lungs clear to auscultation Cardiovascular: RRR, no murmur, no edema Gastrointestinal (Abdomen): Inspection/Auscultation: + abdomen distended Percussion/Palpation: abdomen soft; abdomen nontender Musculoskeletal: edematous lower extremities Results & Data Vital Signs (Past 12 Hours) Vital Signs Temp Pulse Pulse Resp BP BP Pulse Ox 02/04/25 07:43 36.3 C L 83 18 115/68 91 02/04/25 01:35 90 02/04/25 01:00 36.5 C 81 18 113/76 92 02/04/25 00:00 92 02/03/25 23:15 90 13 110/79 90 02/03/25 23:03 89 14 118/81 93 02/03/25 22:31 91 H 14 126/81 93 O2 Del Method 02/04/25 07:43 Room Air 02/04/25 01:35 02/04/25 01:00 Room Air 02/04/25 00:00 Room Air 02/03/25 23:15 Room Air 02/03/25 23:03 Room Air 02/03/25 22:31 Room Air Laboratory Results 02/04/25 02/04/25 02/03/25 Range/Units 04:01 01:57 20:59 WBC 11.37 H (4.8-10.8) K/ul RBC 3.10 L (4.20-5.40) M/uL Hgb 10.6 L (12.0-16.0) g/dl Hct 29.6 L (37.0-47.0) % MCV 95.5 (80.0-100.0) fL MCH 34.2 H (25.0-34.0) pg MCHC 35.8 (32.0-36.0) g/dL RDW Std Deviation 71.3 H (36.4-46.3) fL RDW Coeff of Car 20.8 H (11.5-14.5) % Plt Count 150 (130-400) K/uL MPV 12.5 H (9.4-12.4) fL Immature Gran % (Auto) 0.9 % Neut % (Auto) 74.7 % Lymph % (Auto) 14.4 % Boyd % (Auto) 9.1 % Eos % (Auto) 0.5 % Baso % (Auto) 0.4 % Neut # (Auto) 8.49 H (1.40-6.50) K/uL Lymph # (Auto) 1.64 (1.20-3.40) K/uL Boyd # (Auto) 1.04 H (0.11-0.59) K/uL Eos # (Auto) 0.06 (0.00-0.50) K/uL Baso # (Auto) 0.04 (0.00-0.20) K/uL Immature Gran # (Auto) 0.10 (0.01-0.20) K/uL Polychromasia 1+ Anisocytosis Present Target Cells 1+ PT 16.7 H (9.0-12.0) Seconds INR 1.6 H (0.9-1.1) APTT (21-31) Seconds PTT Ratio Sodium 124 L (136-145) mmol/L Potassium 3.2 L (3.5-5.1) mmol/L Chloride 88 L (98-107) mmol/L Carbon Dioxide 28 (21-32) mmol/L Anion Gap 8 (3-11) BUN 5 L (6-23) mg/dl Creatinine 0.55 L (0.6-1.2) mg/dl Est Cr Clr Drug Dosing 107.8 ml/min eGFR 104.87 BUN/Creatinine Ratio 9.1 L (10-20) Glucose 100 H (70-99(Fasting)) mg/dl Osmolality (280-300) mOsm/kg Calcium 8.4 L (8.6-10.3) mg/dl Magnesium 1.7 (1.7-2.4) mg/dl Total Bilirubin 5.3 H (0.2-1.0) mg/dl AST 111 H (13-39) U/L ALT 40 (7-52) U/L Alkaline Phosphatase 156 H (34-104) U/L Troponin I High Sens (0-14) pg/ml B-Natriuretic Peptide (0-100) pg/ml Total Protein 6.4 (6.0-8.3) gm/dl Albumin 3.8 (3.4-5.0) gm/dl Globulin 2.6 (2.5-4.0) gm/dl Albumin/Globulin Ratio 1.5 (0.9-2) Lipase (11-82) U/L TSH (0.300-4.500) uIu/ml Free T4 (0.61-1.60) ng/dl Urine Color Yellow Urine Appearance Clear (Clear) Urine pH 5.5 (4.5-7.5) Ur Specific [place]ford 1.020 (1.000-1.030) Urine Protein Negative (Negative) Urine Glucose (UA) Negative (Negative) Urine Ketones Negative (Negative) Urine Blood Negative (Negative) Urine Nitrite Negative (Negative) Urine Bilirubin Negative (Negative) Urine Urobilinogen Negative (Negative) Ur Leukocyte Esterase Negative (Negative) Urine Osmolality 206 L (500-800) mOsm/kg Ur Random Sodium 19 mmol/L Ethyl Alcohol mg/dL < 10.0 (<10.0) mg/dl SARS-CoV-2 (PCR) (Negative) Influenza Type A (PCR) (Neg) Influenza Type B (PCR) (Neg) RSV (RT-PCR) (Neg) 02/03/25 Range/Units 20:49 WBC 13.39 H (4.8-10.8) K/ul RBC 3.27 L (4.20-5.40) M/uL Hgb 11.5 L (12.0-16.0) g/dl Hct 31.2 L (37.0-47.0) % MCV 95.4 (80.0-100.0) fL MCH 35.2 H (25.0-34.0) pg MCHC 36.9 H (32.0-36.0) g/dL RDW Std Deviation 71.3 H (36.4-46.3) fL RDW Coeff of Car 20.7 H (11.5-14.5) % Plt Count 173 (130-400) K/uL MPV 12.6 H (9.4-12.4) fL Immature Gran % (Auto) 0.7 % Neut % (Auto) 74.6 % Lymph % (Auto) 14.9 % Boyd % (Auto) 8.7 % Eos % (Auto) 0.7 % Baso % (Auto) 0.4 % Neut # (Auto) 9.98 H (1.40-6.50) K/uL Lymph # (Auto) 1.99 (1.20-3.40) K/uL Boyd # (Auto) 1.17 H (0.11-0.59) K/uL Eos # (Auto) 0.09 (0.00-0.50) K/uL Baso # (Auto) 0.06 (0.00-0.20) K/uL Immature Gran # (Auto) 0.10 (0.01-0.20) K/uL Polychromasia Anisocytosis Present Target Cells PT 16.4 H (9.0-12.0) Seconds INR 1.6 H (0.9-1.1) APTT 30 (21-31) Seconds PTT Ratio 1.1 Sodium 118 L* (136-145) mmol/L Potassium 3.1 L (3.5-5.1) mmol/L Chloride 85 L (98-107) mmol/L Carbon Dioxide 27 (21-32) mmol/L Anion Gap 6 (3-11) BUN 4 L (6-23) mg/dl Creatinine 0.66 (0.6-1.2) mg/dl Est Cr Clr Drug Dosing 88.1 ml/min eGFR 100.36 BUN/Creatinine Ratio 6.1 L (10-20) Glucose 109 H (70-99(Fasting)) mg/dl Osmolality 247 L (280-300) mOsm/kg Calcium 8.3 L (8.6-10.3) mg/dl Magnesium 1.3 L (1.7-2.4) mg/dl Total Bilirubin 5.9 H (0.2-1.0) mg/dl AST 136 H (13-39) U/L ALT 46 (7-52) U/L Alkaline Phosphatase 197 H (34-104) U/L Troponin I High Sens 13.2 (0-14) pg/ml B-Natriuretic Peptide 61 (0-100) pg/ml Total Protein 6.6 (6.0-8.3) gm/dl Albumin 3.5 (3.4-5.0) gm/dl Globulin 3.1 (2.5-4.0) gm/dl Albumin/Globulin Ratio 1.1 (0.9-2) Lipase 27 (11-82) U/L TSH 6.144 H (0.300-4.500) uIu/ml Free T4 1.54 (0.61-1.60) ng/dl Urine Color Urine Appearance (Clear) Urine pH (4.5-7.5) Ur Specific Sanford (1.000-1.030) Urine Protein (Negative) Urine Glucose (UA) (Negative) Urine Ketones (Negative) Urine Blood (Negative) Urine Nitrite (Negative) Urine Bilirubin (Negative) Urine Urobilinogen (Negative) Ur Leukocyte Esterase (Negative) Urine Osmolality (500-800) mOsm/kg Ur Random Sodium mmol/L Ethyl Alcohol mg/dL (<10.0) mg/dl SARS-CoV-2 (PCR) NEGATIVE (Negative) Influenza Type A (PCR) Negative (Neg) Influenza Type B (PCR) Negative (Neg) RSV (RT-PCR) Negative (Neg) Diagnostic Findings Chest X-Ray 02/03/25 20:38 Exam(s): XR CXR 1 VIEW EXAM: XR Chest, 1 View CLINICAL HISTORY: Reason for exam: Chest pain, nonspecific. TECHNIQUE: Frontal view of the chest. COMPARISON: 01/24/2025 FINDINGS: Lungs: There is mild left basilar subsegmental atelectasis. The lungs are otherwise clear. Pleural space: Unremarkable. No pneumothorax. Heart: Unremarkable. No cardiomegaly. Mediastinum: Unremarkable. Normal mediastinal contour. Bones/joints: Unremarkable. No acute fracture. IMPRESSION: There is mild left basilar subsegmental atelectasis. The lungs are otherwise clear. Electronically signed by: Julian Perez MD 02/03/25 22:51 PM Abdomen/Pelvis CT 02/03/25 20:53 Exam(s): CT ABDOMEN + PELVIS With Contrast IV Amt: 93 ml optiray 320 EXAM: CT Abdomen and Pelvis With Intravenous Contrast CLINICAL HISTORY: Reason for exam: swelling, history of cirrhosis. TECHNIQUE: Axial computed tomography images of the abdomen and pelvis with intravenous contrast. CTDI is 22.81 mGy and DLP is 1177.45 mGy-cm. Automated exposure control was utilized for the study. A dose lowering technique was utilized adhering to the principles of ALARA. CONTRAST: Patient received 93 ml optiray 320 of IV contrast COMPARISON: CT abdomen and pelvis: 06/03/2024 FINDINGS: Lung bases: There is mild left posterior basilar subsegmental atelectasis. Lung bases are otherwise clear. ABDOMEN: Liver: There is hepatic cirrhosis with heterogeneous attenuation, capsular retraction, nodularity and caudate hypertrophy. No hypervascular or suspicious hepatic mass identified. Gallbladder and bile ducts: The gallbladder is contracted. There is a small intraluminal gallstone. No ductal dilation. Pancreas: Unremarkable. No mass. No ductal dilation. Spleen: Unremarkable. No splenomegaly. Adrenals: Unremarkable. No mass. Kidneys and ureters: Unremarkable. No solid mass. No hydronephrosis. Stomach and bowel: Unremarkable. No obstruction. No mucosal thickening. PELVIS: Appendix: No findings to suggest acute appendicitis. Bladder: Unremarkable. No mass. Reproductive: Unremarkable as visualized. ABDOMEN and PELVIS: Intraperitoneal space: There is a moderate volume of abdominal ascites. No free air. Bones/joints: No acute fracture. No dislocation. There is moderately advanced L4-5 degenerative disc disease. Soft tissues: Unremarkable. Vasculature: Unremarkable. No abdominal aortic aneurysm. Lymph nodes: Unremarkable. No enlarged lymph nodes. IMPRESSION: 1. Hepatic cirrhosis with moderate volume of abdominal and pelvic ascites. No hypervascular or suspicious hepatic mass identified. 2. Cholelithiasis. Electronically signed by: Julian Perez MD 02/03/25 23:11 PM Venous Doppler Study 02/04/25 00:50 EXAM: US venous doppler LE CLINICAL HISTORY: Leg swelling. TECHNIQUE: Ultrasound examination of bilateral lower extremity veins was performed in real time and duplex. One or more of the following were performed- spectral analysis, resistive index, waveform analysis, and pulsed Doppler. COMPARISON: None. FINDINGS: Normal phasic, non-pulsatile, and spontaneous flow is noted in bilateral common femoral, superficial femoral, popliteal, anterior tibial and posterior tibial and peroneal veins. Visualized veins of both lower extremities demonstrate normal compressibility. No sonographic evidence of acute deep vein thrombosis (DVT) is detected in the visualized veins of both lower extremities. Compression and Augmentation: All evaluated veins compress fully with applied transducer pressure. Augmentation of venous flow is noted with distal compression. Additional Findings: Subcutaneous edema was seen in both legs. IMPRESSION: 1. No sonographic evidence of acute DVT was detected in bilateral common femoral, superficial femoral, popliteal, anterior tibial, posterior tibial and peroneal veins, at the time of examination. 2. Diffuse subcutaneous edema seen in both legs. Disclaimer: DVT could be missed early in the disease when the clot burden is minimal. For patients with moderate and high pretest probability of DVT and negative ultrasound, the [employer] [employer] clinical guidelines recommend testing with a D-dimer assay or repeat ultrasound in 5-7 days. If symptoms worsen, the Society of Radiologists in Ultrasound recommends repeating ultrasound even earlier. Electronically signed by Jesus Garcia 02-04-2025 04:18 AM
--- NOTE | 2025-02-04 11:50 | Nephrology Consultation ---
Date of Consultation February 04, 2025 Assessment & Plan (1) Acute hyponatremia: Hypervolemic type sec to Liver Cirrhosis. even with just one lasix marked improvement in edema and na is up a lot. NO need of lasix for now. based on Na level at around 4 PM will decide if she can have more lasix. for now na rise is somewhat higher than ideal but not bad enough to give d5w D/c fluid restriction for now given rapid rise For home will do her combination of lasix and aldactone +/- kcl. Will need labs and titration after discharge. Did discuss the plan for outpt. Also told her that Low Na is from excess water and not lack of Salt--she needs to follow fluid restriction at home and low Salt diet + lasix/Aldactone Combo. (2) Cirrhosis of liver: Primary problem. Plan time spent 62 mins. Discussed with primary team. reviewed GI note. History of Present Illness Reason for Consultation: Hyponatremia Attending Physician: Sammi Ortiz MD History of Present Illness 59/F with known alcohol related liver disease who has noticed swelling in her lower extremities--as per her this is new. This progressed to her abdomen. Went to see PCP and was started Lasix just yesterday but low dose and did not respond. recent Admission for Esophageal varices. na was low and she got one dose of lasix. made a lot of urine. edema is almost all gone and na up by 6 in 6 hrs time. Her abdomen is also still swollen but both are much better. na was 118 and now is 126. K is low. BUN and creat both very low as expected. Denies other symptoms now. wants to go home soon. ROs--12 systems otherwise negative Physical Exam Physical Exam: GENERAL: Pleasant, comfortable, no respiratory distress HEENT: Bespectacled, pale palpebral conjunctivae, no ptosis, dry buccal mucosa NECK : Supple, no tenderness CHEST : Decreased breath sounds, no tenderness HEART : RRR, no obvious murmurs ABDOMEN: Marked distention, nontender, positive fluid wave EXTREMITIES : Trace edema now NEUROLOGIC : Coherent, normal speech Allergies Allergy/AdvReac Type Severity Reaction Status Date / Time gluten Allergy Unknown Hives Verified 02/03/25 23:01 prednisone AdvReac Intermediate Nausea,vomiting Verified 02/03/25 23:01 and diarrhea Home Medications Medication Instructions Recorded Confirmed Type cholecalciferol (vitamin D3) 125 125 mcg PO QAM 01/24/25 02/03/25 History mcg (5,000 unit) tablet (Vitamin D3) folic acid 1 mg tablet 1 mg PO QAM #30 tabs 01/27/25 02/03/25 Rx pantoprazole 40 mg tablet,delayed 40 mg PO BID #60 tabs 01/27/25 02/03/25 Rx release thiamine HCl (vitamin B1) 100 mg 100 mg PO QAM #30 tabs 01/27/25 02/03/25 Rx tablet cyclobenzaprine 5 mg tablet 5 mg PO BID PRN MUSCLE SPASMS 02/03/25 02/03/25 History furosemide 20 mg tablet 20 mg PO DAILY 02/03/25 02/03/25 History Patient History Medical History Portal hypertensive gastropathy Syncope Alcoholic hepatitis Hyperbilirubinemia Prolonged QT interval Alcoholism, chronic Hypomagnesemia Hypokalemia Acute upper gastrointestinal bleeding Hyponatremia Celiac disease Tobacco use Surgical History H/O eye surgery Family History Other Prostate cancer Stroke Social History Smoking Status: Current every day smoker Tobacco Type: Cigarettes Cigarettes Per Day: 1 PPD; Second Hand Exposure: Yes; Do You Dip or Chew Tobacco: No; Hx Alcohol Use: Yes (quit 2 months ago) Alcohol type: hard liquor Alcohol type Comment: h/o heavy vodka intake, stopped drinking 3 weeks ago Hx Substance Use: No Preferred Language: Pashto Communication Ability: Effective Classification Case Manager Required: No Beliefs That Will Affect Care: None marital status: Single Current Living Situation: Spouse Current Living Situation Comment: Tien Nuñez current occupational status: unemployed Other Information That Helps Us Care for You: No Feels Safe at Home: Yes Safety Concerns: Feels Safe At This Time Assistive Devices: None Results & Data Vital Signs (Past 12 Hours) Vital Signs Temp Pulse Pulse Resp BP Pulse Ox O2 Del Method 02/04/25 11:00 36.6 C 83 18 125/77 92 Room Air 02/04/25 08:00 73 02/04/25 07:43 36.3 C L 83 18 115/68 91 Room Air 02/04/25 01:35 90 03/22/25 01:00 36.5 C 81 18 113/76 92 Room Air 02/04/25 00:00 92 Room Air Laboratory Results CBC, LFT, CT abdomen, renal panel, Duplex LE
--- NOTE | 2025-02-04 14:35 | Hospitalist Progress Note ---
Date of Service February 04, 2025 Assessment & Plan (1) Acute hyponatremia: Plan: 59 yo F w/ PMH of hypertension, alcoholic liver disease, esophageal varices, celiac disease, hyperthyroidism, ongoing tobacco/alcohol abuse who was recently admitted 01/24 to 01/27 with UGI bleed/hematemesis ISO portal hypertensive gastropathy and was found to have grade 2 esophageal varices on EGD status post banding [repeat endoscopy recommended in 2 to 3 months] presented this time 02/03 with complaint of BLE swelling and abdominal swelling creating difficulty with activities of living including movement and bending down. Patient denies shortness of breath or chest pain or nausea or vomiting or abdominal pain or alcohol intake since last discharge. She is being managed for the following: Abdominal ascites Leg swelling Volume overload History of alcoholic cirrhosis Patient presents with volume overload symptoms. See above. Admitting CTAP with finding of hepatic cirrhosis and moderate volume of abdominal and pelvic ascites. BLE venous Doppler: Negative for DVT. Status post a dose of Lasix last evening, follow-up BMP and further titration of diuretics. Patient will need Lasix and Aldactone at the time of discharge, will follow. Acute on chronic hyponatremia Admitting sodium of 118, baseline sodium around 1 28-1 30. Hypervolemic type secondary to liver cirrhosis. Discussed with nephrology, will repeat BMP around 4 PM and decide on further Lasix. No fluid restriction for now. Patient will likely need combination of Lasix and Aldactone plus minus potassium supplements at the time of discharge given volume overload/ascites in the setting of cirrhosis. Patient to maintain follow-up with nephrology upon discharge. Continue with low-salt diet, high-protein diet. Recent upper GI bleed: In the setting of portal hypertensive gastropathy. Patient underwent EGD and noted to have grade 2 esophageal varices status post banding. Follow-up endoscopy in 2 to 3 months. Hemoglobin appears stable. Hypokalemia and hypomagnesemia: Monitor and replete. Other chronic medical conditions: Continue with/resume home meds as and when able. hyperthyroidism as per records, patient euthyroid, currently not on maintenance medications tobacco/alcohol abuse. strongly counselled against tobacco/alcohol use. Nicotine patch, pt denies alcohol use now. DVT prophylaxis. SCDs Full code Text document was generated using [employer] voice recognition software. It may contain grammatical or spelling errors. Kindly contact undersigned for clarification of any documentation item in question. Admission and Anticipated Discharge Date Admission Date: February 03, 2025 Subjective Patient was seen and examined at bedside. Patient was lying in bed, on room air, NAD, resting comfortably. Patient reports improvement in her leg swelling, reports making a lot of urine, reports feeling better and is now able to bend/belly doesn't create problem. Patient denies any fever/sore throat/cough/chest pain. Patient denies any alcohol intake since discharge last time. Patient denies any nausea/vomiting/abdominal pain/pain or burning while passing urine. Physical Exam Physical Exam: GENERAL: Pleasant, comfortable, no respiratory distress SKIN: Pallor, warm HEENT: Bespectacled, pale palpebral conjunctivae, no ptosis, moist buccal mucosa NECK : Supple, no tenderness CHEST : Decreased breath sounds, no tenderness HEART : RRR, no obvious murmurs ABDOMEN: Marked distention, nontender, positive fluid wave EXTREMITIES : Bilateral LE trace edema without tenderness, no other conspicuous deformities noted NEUROLOGIC : Coherent, no facial asymmetry, no other gross focality Results & Data Results & Data Vital Signs (Past 12 Hours) Vital Signs Temp Pulse Pulse Resp BP Pulse Ox O2 Del Method 02/04/25 11:00 36.6 C 83 18 125/77 92 Room Air 02/04/25 08:00 73 02/04/25 07:43 36.3 C L 83 18 115/68 91 Room Air
[2025-02-04 15:07] LABS: BUN Creatinine Ratio 7.3 (10-20); Calcium 8.3 mg/dl (8.6-10.3); Creatinine Clr Calc Pharmacy 107.8 ml/min; Potassium 4.5 mmol/L (3.5-5.1)
[2025-02-04] MEDS: FUROSEMIDE INJ 20 MG/2 ML VIAL IV ONE (18:06)
[2025-02-05 05:54] LABS: Hematocrit (blood only) 27.4 % (37.0-47.0); Hemoglobin 9.7 g/dl (12.0-16.0); Mean Corpuscular Hemoglobin 33.9 pg (25.0-34.0); Mean Corpuscular Hgb Conc 35.4 g/dL (32.0-36.0); Mean Corpuscular Volume 95.8 fL (80.0-100.0); Mean Platelet Volume 12.8 fL (9.4-12.4); Platelet Count 152 K/uL (130-400); RDW Coefficient of Variation 21.2 % (11.5-14.5); RDW Standard Deviation 71.9 fL (36.4-46.3); Red Blood Count 2.86 M/uL (4.20-5.40); White Blood Count 9.24 K/ul (4.8-10.8)
[2025-02-05 06:09] LABS: BUN Creatinine Ratio 10.4 (10-20); Calcium 8.2 mg/dl (8.6-10.3); Creatinine Clr Calc Pharmacy 123.5 ml/min; Magnesium 1.8 mg/dl (1.7-2.4); Phosphorus 2.6 mg/dl (2.5-4.9); Potassium 3.7 mmol/L (3.5-5.1)
[2025-02-05] MEDS: THIAMINE HCL 100 MG TAB PO SCH (09:32)
--- NOTE | 2025-02-05 09:56 | Gastroenterology Progress Note ---
Date of Service February 05, 2025 Assessment & Plan (1) Abdominal ascites: Plan: I suspect her postprandial discomfort is related to her ascites. She did had an EGD less than two weeks ago so I don't think she has any GI pathology causing the discomfort. I do think she will improve when fluid in belly resolves. Paracentesis could be considered and be a quick fix but the best option is controlling with diuretics and fluid/Na restriction. Admission and Anticipated Discharge Date Admission Date: February 03, 2025 Subjective Not as good as yesterday. She is complaining of fullness and discomfort with eating. This only started after her belly started swelling with ascites. She is also concerned that her feet and ankles are still swollen. She reports losing five pounds since admit. Labs are improved but still with hyponatremia Physical Exam Physical Exam: She looks comfortable Constitutional: WD/WN, vitals as above Gastrointestinal (Abdomen): Inspection/Auscultation: + abdomen distended Percussion/Palpation: abdomen soft Musculoskeletal: no pretibial edema, ankles and feet swollen Results & Data Vital Signs (Past 12 Hours) Vital Signs Temp Pulse Pulse Resp BP Pulse Ox O2 Del Method 02/05/25 07:39 37.0 C 80 16 103/68 92 Room Air 02/05/25 07:19 78 02/05/25 03:56 36.4 C L 76 16 111/70 93 Room Air 02/04/25 22:59 36.5 C 89 16 117/78 94 Room Air 02/04/25 22:50 95 H
[2025-02-05] MEDS: FUROSEMIDE 40 MG/4 ML VIAL IV SCH (10:54)
--- NOTE | 2025-02-05 11:30 | Nephrology Progress Note ---
Date of Service February 05, 2025 Assessment & Plan Admission and Anticipated Discharge Date Admission Date: February 03, 2025 Subjective Assessment & Plan (1) Acute hyponatremia: Hypervolemic type sec to Liver Cirrhosis. na rising at ideal rate now. did get some iv lasix. It is hard to get na > 130 though. Agree with lasix 40 iv bid. Add Aldactone 25 bid. For home will do her combination of lasix 40 bid and aldactone 25 bid +/- kcl. Will decide after labs in AM. has needed kcl with lasix alone but we are adding Aldactone now Will need labs and titration after discharge. Did discuss the plan for outpt. Also told her that Low Na is from excess water and not lack of Salt--she needs to follow fluid restriction at home and low Salt diet + lasix/Aldactone Combo. (2) Cirrhosis of liver: Primary problem. Plan time spent 38 mins. S--feels abd distending again. for Ascites tap tomorrow. Physical Exam Physical Exam: GENERAL: Pleasant, comfortable, no respiratory distress HEENT: Bespectacled, pale palpebral conjunctivae, no ptosis, dry buccal mucosa NECK : Supple, no tenderness CHEST : Decreased breath sounds, no tenderness HEART : RRR, no obvious murmurs ABDOMEN: Marked distention, nontender, positive fluid wave EXTREMITIES : Trace edema now NEUROLOGIC : Coherent, normal speech Results & Data Vital Signs (Past 12 Hours) Vital Signs Temp Pulse Pulse Resp BP Pulse Ox O2 Del Method 02/05/25 11:06 36.7 C 76 18 115/73 96 Room Air 02/05/25 07:39 37.0 C 80 16 103/68 92 Room Air 02/05/25 07:19 78 02/05/25 03:56 36.4 C L 76 16 111/70 93 Room Air
[2025-02-05] MEDS: SIMETHICONE 40 MG/0.6 ML 30ML PO PRN (12:32)
--- NOTE | 2025-02-05 15:48 | Hospitalist Progress Note ---
Date of Service February 05, 2025 Assessment & Plan (1) Acute hyponatremia: Plan: 59 yo F w/ PMH of hypertension, alcoholic liver disease, esophageal varices, celiac disease, hyperthyroidism, ongoing tobacco/alcohol abuse who was recently admitted 01/24 to 01/27 with UGI bleed/hematemesis ISO portal hypertensive gastropathy and was found to have grade 2 esophageal varices on EGD status post banding [repeat endoscopy recommended in 2 to 3 months] presented this time 02/03 with complaint of BLE swelling and abdominal swelling creating difficulty with activities of living including movement and bending down. Patient denies shortness of breath or chest pain or nausea or vomiting or abdominal pain or alcohol intake since last discharge. She is being managed for the following: Abdominal ascites Leg swelling Volume overload History of alcoholic cirrhosis Patient presents with volume overload symptoms. See above. Admitting CTAP with finding of hepatic cirrhosis and moderate volume of abdominal and pelvic ascites. BLE venous Doppler: Negative for DVT. On Lasix and Aldactone, appreciate nephrology recommendation. Patient is still continues with abdominal discomfort, will plan for paracentesis in AM. Patient will need to be on p.o. Lasix and Aldactone on discharge. Acute on chronic hyponatremia Admitting sodium of 118, baseline sodium around 1 28-1 30. Hypervolemic type secondary to liver cirrhosis. Sodium appropriately improving. Nephrology on board, appreciate recommendation, patient on Lasix and Aldactone. Continue with low-salt diet, high-protein diet. Follow-up with nephrology on discharge. Recent upper GI bleed: In the setting of portal hypertensive gastropathy. Patient underwent EGD and noted to have grade 2 esophageal varices status post banding. Follow-up endoscopy in 2 to 3 months. Hemoglobin appears stable. Hypokalemia and hypomagnesemia: Monitor and replete. Other chronic medical conditions: Continue with/resume home meds as and when able. hyperthyroidism as per records, patient euthyroid, currently not on m aintenance medications tobacco/alcohol abuse. strongly counselled against tobacco/alcohol use. Nicotine patch, pt denies alcohol use now. DVT prophylaxis. SCDs Full code Text document was generated using [employer] voice recognition software. It may contain grammatical or spelling errors. Kindly contact undersigned for clarification of any documentation item in question. Admission and Anticipated Discharge Date Admission Date: February 03, 2025 Subjective Patient was seen and examined at bedside. Patient was lying in bed, on room air, NAD, resting comfortably. Patient is complaining of abdominal discomfort today and feels distended and has postprandial discomfort. We discussed the plan and possibly will get paracentesis tomorrow. Patient denies any fever/sore throat/cough/chest pain. Patient denies any alcohol intake since discharge last time. Patient denies any nausea/vomiting/abdominal pain/pain or burning while passing urine. Physical Exam Physical Exam: GENERAL: Pleasant, comfortable, no respiratory distress SKIN: Pallor, warm HEENT: Bespectacled, pale palpebral conjunctivae, no ptosis, moist buccal mucosa NECK : Supple, no tenderness CHEST : Decreased breath sounds, no tenderness HEART : RRR, no obvious murmurs ABDOMEN: Marked distention, nontender, positive fluid wave EXTREMITIES : Bilateral LE trace edema without tenderness, no other conspicuous deformities noted NEUROLOGIC : Coherent, no facial asymmetry, no other gross focality Results & Data Results & Data Vital Signs (Past 12 Hours) Vital Signs Temp Pulse Pulse Resp BP Pulse Ox O2 Del Method 02/05/25 14:34 36.6 C 78 18 119/68 91 Room Air 02/05/25 11:06 36.7 C 76 18 115/73 96 Room Air 02/05/25 07:39 37.0 C 80 16 103/68 92 Room Air 02/05/25 07:19 78 02/05/25 03:56 36.4 C L 76 16 111/70 93 Room Air
[2025-02-05] MEDS: SPIRONOLACTONE 25 MG TAB PO SCH (17:11)
[2025-02-05] MEDS: CALCIUM CARBONATE 500 MG CHEWABLE TAB PO PRN (17:12)
[2025-02-06 07:08] LABS: Hematocrit (blood only) 26.7 % (37.0-47.0); Hemoglobin 9.5 g/dl (12.0-16.0); Mean Corpuscular Hemoglobin 34.2 pg (25.0-34.0); Mean Corpuscular Hgb Conc 35.6 g/dL (32.0-36.0); Mean Platelet Volume 12.6 fL (9.4-12.4); Platelet Count 162 K/uL (130-400); RDW Coefficient of Variation 20.9 % (11.5-14.5); RDW Standard Deviation 72.4 fL (36.4-46.3); Red Blood Count 2.78 M/uL (4.20-5.40); White Blood Count 9.44 K/ul (4.8-10.8)
[2025-02-06 07:42] LABS: BUN Creatinine Ratio 10.9 (10-20); Creatinine Clr Calc Pharmacy 107.8 ml/min; Magnesium 1.5 mg/dl (1.7-2.4); Phosphorus 3.7 mg/dl (2.5-4.9)
[2025-02-06] MEDS: POTASSIUM CHLORIDE CRTAB 20 MEQ TABCR PO SCH ×2 (08:13→20:01)
[2025-02-06] MEDS: MAGNESIUM SULFATE / D5W 1 GM/100 ML BAG IV SCH (09:20)
--- NOTE | 2025-02-06 10:14 | Nephrology Progress Note ---
Date of Service February 06, 2025 Assessment & Plan (1) Acute hyponatremia: (2) Cirrhosis of liver: Admission and Anticipated Discharge Date Admission Date: February 03, 2025 Subjective Assessment & Plan (1) Acute hyponatremia: Hypervolemic type sec to Liver Cirrhosis. Concerning to see that K dropped so much even with aldactone. Also Na dropped a bit from yesterday. given this Stop Iv lasix. Change to oral lasix 40 bid. Lower Aldactone to 25 daily. For home will do her combination of lasix and aldactone 25 Will need kcl. Will decide after labs in AM. Add kcl 40 bid Will need labs and titration after discharge. Did discuss the plan for outpt. Also told her that Low Na is from excess water and not lack of Salt--she needs to follow fluid restriction at home and low Salt diet + lasix/Aldactone Combo. Add FFR of 1500 ml per day (2) Cirrhosis of liver: Primary problem. Plan time spent 38 mins. S--feels abd distending again. for Ascites tap today. Physical Exam Physical Exam: GENERAL: Pleasant, comfortable, no respiratory distress HEENT: Bespectacled, pale palpebral conjunctivae, no ptosis, dry buccal mucosa NECK : Supple, no tenderness CHEST : Decreased breath sounds, no tenderness HEART : RRR, no obvious murmurs ABDOMEN: Marked distention, nontender, positive fluid wave EXTREMITIES : Trace edema now NEUROLOGIC : Coherent, normal speech Results & Data Vital Signs (Past 12 Hours) Vital Signs Temp Pulse Resp BP BP Pulse Ox O2 Del Method 02/06/25 07:54 36.4 C L 80 20 107/66 90 Room Air 02/06/25 03:55 36.6 C 76 18 109/68 93 Room Air 02/05/25 23:16 36.7 C 93 H 18 112/69 94 Room Air
[2025-02-06 10:30] LABS: Albumin Peritoneal Fluid < 1.5 gm/dl; Amylase Peritoneal Fluid 46 U/L; Glucose Peritoneal Fluid 106 mg/dl; LDH Peritoneal Fluid 28 U/L; Lipase Peritoneal Fluid 63 U/L; Total Protein Peritoneal Fluid < 3.0 gm/dl
[2025-02-06 11:12] LABS: Appearance Peritoneal Fluid Clear; Color Peritoneal Fluid Yellow; Lymphocytes, Fluid 24 %; Mono,Macrophage,Mesothelial 68 %; Neutrophils, Fluid 8 %; RBC Peritoneal Fluid Auto < 2000 /uL; WBC Peritoneal Fluid Auto 198 /ul (0-300)
--- NOTE | 2025-02-06 11:43 | Gastroenterology Progress Note ---
Date of Service February 06, 2025 Assessment & Plan (1) Cirrhosis of liver: (2) Abdominal ascites: Plan -Continue Lasix & Aldactone titrated per nephrology -Continue Pantoprazole 40 mg BID -Plan for outpatient EGD in 2-3 months with her primary [facility] GI team -2 gm Na restricted diet -Alcohol abstinence reinforced during this admission -Continue folic acid & thiamine -Trend MELD labs while inpatient -Follow-up with outpatient hepatology (she's established with Dr. Gallego) Admission and Anticipated Discharge Date Admission Date: February 03, 2025 Supervising Physician Co-Signing Physician Notes No development of ascites. Post variceal banding. Patient has not been on diuretics or salt restriction. These been implemented on this admission. Lasix has been added both for her noted hyponatremia and fluid excess. Salt restriction appropriate even in the face of this hyponatremia. This is an excess water problem. Being followed by nephrology. Advised to watch her weight at discharge if she develops progressive weight gain more than 2 pounds per day or recurrent peripheral edema she should notify her lumber cutter or treating collar packer as she may need diuretics above and beyond her current 20 mg of furosemide. Okay for discharge from a GI perspective. Ascitic fluid does not appear to be infected. Consistent with transitive Subjective Patient is a 59 yo female hospitalized with complications of cirrhosis. She underwent a paracentesis with removal of 2L. Fluid studies without findings of SBP. MELD score 27. Nephrology is on board, titrating diuretics particularly in the setting of hyponatremia. She has been 2 months sober. She has an outpatient collar packer (Dr. Gallego). She feels significantly better at present. She recently was admitted and had an EGD and was found to have grade 2 esophageal varices that were banded. A repeat EGD was advised in 2-3 months. Review of Systems Gastrointestinal: no abdominal pain, no hematemesis, no diarrhea/loose stools and no melena Physical Exam Constitutional: well developed Respiratory: normal respiratory effort Gastrointestinal (Abdomen): normal bowel sounds, soft, nontender, no hepatosplenomegaly Psychiatric: Orientation: alert and oriented x 3 Results & Data Results & Data Vital Signs (Past 12 Hours) Vital Signs Temp Pulse Resp BP BP Pulse Ox O2 Del Method 02/06/25 11:09 36.4 C L 85 18 102/69 91 Room Air 02/06/25 10:39 81 18 116/67 Room Air 02/06/25 09:39 85 18 92/51 L 91 Room Air 02/06/25 07:54 36.4 C L 80 20 107/66 90 Room Air 02/06/25 03:55 36.6 C 76 18 109/68 93 Room Air PG Care Time/CCT Total # of Minutes Spent Total Time Spent with Patient: Total time spent is greater than 50% in coordination of care (as documented) at patient's floor/unit and/or counseling patient: Coding Level of Care Code 42565 SUB INP/OBS CARE 3/50MIN Diagnoses Cirrhosis of liver K74.60 Abdominal ascites R18.8
--- NOTE | 2025-02-06 14:06 | Hospitalist Progress Note ---
Date of Service February 06, 2025 Assessment & Plan (1) Acute hyponatremia: Plan: 59 yo F w/ PMH of hypertension, alcoholic liver disease, esophageal varices, celiac disease, hyperthyroidism, ongoing tobacco/alcohol abuse who was recently admitted 01/24 to 01/27 with UGI bleed/hematemesis ISO portal hypertensive gastropathy and was found to have grade 2 esophageal varices on EGD status post banding [repeat endoscopy recommended in 2 to 3 months] presented this time 02/03 with complaint of BLE swelling and abdominal swelling creating difficulty with activities of living including movement and bending down. Patient denies shortness of breath or chest pain or nausea or vomiting or abdominal pain or alcohol intake since last discharge. She is being managed for the following: Abdominal ascites Leg swelling Volume overload History of alcoholic cirrhosis Patient presents with volume overload symptoms. See above. Admitting CTAP with finding of hepatic cirrhosis and moderate volume of abdominal and pelvic ascites. BLE venous Doppler: Negative for DVT. On Lasix and Aldactone, appreciate nephrology recommendation. s/p paracentesis 02/06, f/u on studies and culture. Patient will need to be on p.o. Lasix and Aldactone on discharge. GI evaled, f/u w/ hepatology on dc. OP EGD in 2-3 months. Acute on chronic hyponatremia Admitting sodium of 118, baseline sodium around 1 28-1 30. Hypervolemic type secondary to liver cirrhosis. Sodium trended down today, 125. Nephrology on board, appreciate recommendation, patient on Lasix and Aldactone and KCL supplement. Continue with low-salt diet, high-protein diet. FR 1500 ml. Follow-up with nephrology on discharge. Recent upper GI bleed: In the setting of portal hypertensive gastropathy. Patient underwent EGD and noted to have grade 2 esophageal varices status post banding. Follow-up endoscopy in 2 to 3 months. Hemoglobin appears stable. Hypokalemia and hypomagnesemia: Monitor and replete. Other chronic medical conditions: Continue with/resume home meds as and when able. hyperthyroidism as per records, patient euthyroid, currently not on maintenance medications tobacco/alcohol abuse. strongly counselled against tobacco/alcohol use. Nicotine patch, pt denies alcohol use now. DVT prophylaxis. SCDs Full code Text document was generated using [employer] voice recognition software. It may contain grammatical or spelling errors. Kindly contact undersigned for clarification of any documentation item in question. Admission and Anticipated Discharge Date Admission Date: February 03, 2025 Subjective Patient was seen and examined at bedside. Patient was lying in bed, on room air, NAD, resting comfortably. Patient reports improvement in belly discomfort, got paracentesis today. about 2L taken out per RN. pt reports moving bowels ok. Patient denies any fever/sore throat/cough/chest pain. Patient denies any alcohol intake since discharge last time. Patient denies any nausea/vomiting/abdominal pain/pain or burning while passing urine. Physical Exam Physical Exam: GENERAL: Pleasant, comfortable, no respiratory distress SKIN: Pallor, warm HEENT: Bespectacled, pale palpebral conjunctivae, no ptosis, moist buccal mucosa NECK : Supple, no tenderness CHEST : Decreased breath sounds, no tenderness HEART : RRR, no obvious murmurs ABDOMEN: no distention, nontender EXTREMITIES : Bilateral LE trace edema without tenderness, no other conspicuous deformities noted NEUROLOGIC : Coherent, no facial asymmetry, no other gross focality Results & Data Results & Data Vital Signs (Past 12 Hours) Vital Signs Temp Pulse Resp BP BP Pulse Ox O2 Del Method 02/06/25 11:09 36.4 C L 85 18 102/69 91 Room Air 02/06/25 10:39 81 18 116/67 Room Air 02/06/25 09:39 85 18 92/51 L 91 Room Air 02/06/25 07:54 36.4 C L 80 20 107/66 90 Room Air 02/06/25 03:55 36.6 C 76 18 109/68 93 Room Air
--- NOTE | 2025-02-06 14:26 | Ultrasound Report ---
ULTRASOUND-GUIDED PARACENTESIS CLINICAL HISTORY: Ascites PROCEDURE: Procedure and risks were explained. Informed consent was obtained. A final timeout was com pleted. The abdomen was prepped and draped in sterile fashion. 1% lidocaine was utilized for skin ane sthesia. Utilizing ultrasound guidance, a 5 [place] safety centesis catheter was advanced into the left lower q uadrant pocket of ascites. Ultrasound images were obtained. 2.9 L of yellow-colored ascites fluid was removed, with 1 L sent to the lab. The catheter was removed and Band-Aid applied. The patient tolera cristobal the procedure well. Vital signs will be monitored postprocedure. IMPRESSION: Ultrasound-guided paracentesis as above. Performed, dictated, and signed by Flako Jack PA-C; to be co-signed by Dr. Refugio Bro. Electronically signed by: Refugio Bro M.D. 02/06/2025 3:55 PM
[2025-02-06] MEDS: FUROSEMIDE 40 MG TAB PO SCH (16:29)
[2025-02-06] MEDS ORDERED: POTASSIUM CHLORIDE 20 MEQ/15 ML UDC PO SCH (21:00)
[2025-02-07 07:50] LABS: BUN Creatinine Ratio 12.9 (10-20); Calcium 8.2 mg/dl (8.6-10.3); Creatinine Clr Calc Pharmacy 95.6 ml/min; Magnesium 1.7 mg/dl (1.7-2.4); Phosphorus 3.3 mg/dl (2.5-4.9); Potassium 3.9 mmol/L (3.5-5.1)
[2025-02-07 07:57] VITALS: RESP 18
[2025-02-07] MEDS: SPIRONOLACTONE 25 MG TAB PO SCH (09:40)
[2025-02-07] MEDS: MAGNESIUM OXIDE 400 MG TAB PO SCH (09:43)
--- NOTE | 2025-02-07 10:26 | Nephrology Progress Note ---
Date of Service February 07, 2025 Assessment & Plan Admission and Anticipated Discharge Date Admission Date: February 03, 2025 Subjective Assessment & Plan (1) Acute hyponatremia: Hypervolemic type sec to Liver Cirrhosis. Concerning to see that K dropped so much even with aldactone. Also Na dropped a bit from yesterday. given this Stop Iv lasix. Change to oral lasix 40 bid. Lower Aldactone to 25 daily. For home will do her combination of lasix and aldactone 25 nephro D/c recommendations: Lasix 40 daily. aldactone 25 daily. kcl 40 daily. mag 400 daily. Renal panel and Mag within next 4-5 days and Also f/u with PCP. Will need labs and titration after discharge. Did discuss the plan for outpt with patient and Primary service. nephrology f/u within next 2 weeks and PCP within 1 week. Also told her that Low Na is from excess water and not lack of Salt--she needs to follow fluid restriction at home and low Salt diet + lasix/Aldactone Combo. Add FFR of 1500 ml per day (2) Cirrhosis of liver: Primary problem. Plan time spent 38 mins. S--feels better. NO new issues. had 2 liters Ascites tap yesterday. Physical Exam Physical Exam: GENERAL: Pleasant, comfortable, no respiratory distress HEENT: Bespectacled, pale palpebral conjunctivae, no ptosis, dry buccal mucosa NECK : Supple, no tenderness CHEST : Decreased breath sounds, no tenderness HEART : RRR, no obvious murmurs ABDOMEN: Marked distention, nontender, positive fluid wave EXTREMITIES : No edema now NEUROLOGIC : Coherent, normal speech Results & Data Vital Signs (Past 12 Hours) Vital Signs Temp Pulse Pulse Resp BP Pulse Ox O2 Del Method 02/07/25 08:06 86 02/07/25 07:56 36.6 C 85 18 105/69 93 Room Air 02/07/25 03:08 36.5 C 80 16 109/67 93 Room Air 02/06/25 22:54 36.9 C 88 18 101/67 91 Room Air
[2025-02-07 10:41] VITALS: BP 110/69; PULSE 79; TEMP 98.1; O2SAT 92
--- NOTE | 2025-02-07 12:43 | Discharge Summary ---
Date of Service February 07, 2025 Admission HPI Per Admitting Provider History obtained from patient and records. Medical history significant for hypertension, alcoholic liver disease, esophageal varices, chronic hyponatremia, celiac disease, hyperthyroidism as per records, ongoing tobacco/alcohol abuse. Recent confinement 2 weeks ago for UGIB in the setting of portal hypertensive gastropathy. Patient found to have grade 2 esophageal varices on EGD status post banding. Patient discharged on PPI course, repeat endoscopy recommended in 2 to 3 months. Patient seen on follow-up at PCP's office yesterday. Patient complained of bilateral leg edema without chest pain, SOB. Prescribed Lasix by PCP for edema. Progressive leg edema to involve abdomen. No pain except for bending down. No fever, no chills. Patient denies recent EtOH intake. Patient directed to ER for evaluation. IV Lasix administered at the ER. 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 Admission Exam Per Admitting Provider GENERAL: Pleasant, comfortable, no respiratory distress SKIN: Pallor, warm HEENT: Bespectacled, pale palpebral conjunctivae, no ptosis, dry buccal mucosa NECK : Supple, no tenderness CHEST : Decreased breath sounds, no tenderness HEART : RRR, no obvious murmurs ABDOMEN: Marked distention, nontender, positive fluid wave EXTREMITIES : Bilateral LE swelling without tenderness, no other conspicuous deformities noted NEUROLOGIC : Coherent, no facial asymmetry, no other gross focality Principal Diagnosis Abdominal ascites Leg swelling Volume overload History of alcoholic cirrhosis Acute on chronic hyponatremia Recent upper GI bleed Discharge Exam GENERAL: Pleasant, comfortable, no respiratory distress SKIN: Pallor, warm HEENT: Bespectacled, pale palpebral conjunctivae, no ptosis, moist buccal mucosa NECK : Supple, no tenderness CHEST : Decreased breath sounds, no tenderness HEART : RRR, no obvious murmurs ABDOMEN: no distention, nontender EXTREMITIES : Bilateral LE trace edema without tenderness, no other conspicuous deformities noted NEUROLOGIC : Coherent, no facial asymmetry, no other gross focality Discharge Data Allergies Allergy/AdvReac Type Severity Reaction Status Date / Time gluten Allergy Unknown Hives Verified 02/03/25 23:01 prednisone AdvReac Intermediate Nausea,vomiting Verified 02/03/25 23:01 and diarrhea Consultations 02/03/25 23:33 ED Decision to Admit Stat 02/04/25 01:10 Consult Gastroenterology Routine Consult Nephrology Routine Ordered Studies 02/03/25 20:53 CT abd pelvis IV con only Stat 02/04/25 00:50 US venous doppler LE BI Stat 02/06/25 10:23 IR paracentesis abd w/img US Routine Hospital Course (1) Acute hyponatremia: 59 yo F w/ PMH of hypertension, alcoholic liver disease, esophageal varices, celiac disease, hyperthyroidism, ongoing tobacco/alcohol abuse who was recently admitted 01/24 to 01/27 with UGI bleed/hematemesis ISO portal hypertensive gastropathy and was found to have grade 2 esophageal varices on EGD status post banding [repeat endoscopy recommended in 2 to 3 months] presented this time 02/03 with complaint of BLE swelling and abdominal swelling creating difficulty with activities of living including movement and bending down. Patient denies shortness of breath or chest pain or nausea or vomiting or abdominal pain or alcohol intake since last discharge. She was managed for the following: Abdominal ascites Leg swelling Volume overload History of alcoholic cirrhosis Patient presents with volume overload symptoms. See above. Admitting CTAP with finding of hepatic cirrhosis and moderate volume of abdominal and pelvic ascites. BLE venous Doppler: Negative for DVT. d/w nephro, aldactone 25 mg qd, lasix 40 mg qd, MgO 400 mg qd, KCL 40 meq daily. Pt to f/u hepatology on dc Pt to f/u nephro in 2 weeks Pt made aware to get labs (BMP, Mg) at PCP office in 3-5 days at PCP office. Acute on chronic hyponatremia Admitting sodium of 118, baseline sodium around 1 28-1 30. Hypervolemic type secondary to liver cirrhosis. Sodium trended up today, 129. Nephrology on board, appreciate recommendation. Continue with low-salt diet, high-protein diet. FR 1500 ml. Follow-up with nephrology on discharge. Recent upper GI bleed: In the setting of portal hypertensive gastropathy. Patient underwent EGD and noted to have grade 2 esophageal varices status post banding. Follow-up endoscopy in 2 to 3 months. Hemoglobin appears stable. Hypokalemia and hypomagnesemia: Monitor and replete. Other chronic medical conditions: Continue with/resume home meds as and when able. hyperthyroidism as per records, patient euthyroid, currently not on maintenance medications tobacco/alcohol abuse. strongly counselled against tobacco/alcohol use. Nicotine patch, pt denies alcohol use now. DVT prophylaxis. SCDs Full code Patient is being discharged to home with following instructions at the point of discharge: Follow-up with your primary care physician within a week time and likely you will need labs CBC/CMP/magnesium/phosphorus. Maintain low-sodium diet [less than 2 g a day], fluid restriction of 1500 mL a day, high-protein diet. You will be discharged on Aldactone 25 mg daily, Lasix 40 mg daily, potassium 40 mill equivalent daily, magnesium oxide 400 Mg daily. You will need repeat BMP level in 3 to 5 days time upon discharge, coordinate with your PCP office to set up the test. Follow-up with nephrology in 2 weeks time upon discharge. Follow-up with hepatology in 2 to 4 weeks time upon discharge. Given your recent history of upper GI bleed, you will need follow-up endoscopy in 2 months time upon discharge, coordinate with your GI office to set up the test. Take your medications as prescribed. Please make sure that you are able to get your medications today by calling your pharmacy before you leave the hospital so that your treatment continuity is not broken. Text document was generated using [employer] voice recognition software. It may contain grammatical or spelling errors. Kindly contact undersigned for clarification of any documentation item in question. Home Health Attestation I certify that this patient is under my care and that I, or a physicians logistics assistant working with me, had a face to-face encounter that meets the home health [id number] encounter requirements with this patient. The encounter with the patient was in whole, or in part, for the following medical condition, which is the primary reason for home health care (list medical condition): I certify that, based on my findings, the following services are medically necessary home health services: My clinical findings support the need for the above services because: Further, I certify that my clinical findings support that this patient is homebound (i.e. absences from home require considerable and taxing effort and are for medical reasons or episcopal services or infrequently or of short duration when for other reasons) because: Certification for Home Health Services: Based on the above findings, I certify that this patient is confined to the home and needs intermittent correction care, physical therapy and/or speech therapy or continues to need occupational therapy. The patient is under my care, and I have initiated the establishment of the plan of care. This patient will be followed by a physician who will periodically review the plan of care. Total Time Total Time Spent Total Time Spent (In Minutes): 35 Discharge Plan Discharge Items Patient Disposition: Home - Self-Care Reason For Visit: HYPONATREMIA Discharge Diagnosis: Abdominal ascites Leg swelling Volume overload History of alcoholic cirrhosis Acute on chronic hyponatremia Recent upper GI bleed Activity: Resume your previous activity Non-emergency contact: Primary Care Provider Call non-emergency contact if: you have any medication questions and your symptoms worsen Follow-up/Referrals: Misael Vail MD [Primary Care Provider] - (Date & Time 02/13/2025 3:20 PM Provider: Misael Vail MD [facility] ) Diet: Gluten Free and Low Sodium (2gm) Fluids: 1500ml (6 cups) Addtl Attending Provider Instructions: Follow-up with your primary care physician within a week time and likely you will need labs CBC/CMP/magnesium/phosphorus. Maintain low-sodium diet [less than 2 g a day], fluid restriction of 1500 mL a day, high-protein diet. You will be discharged on Aldactone 25 mg daily, Lasix 40 mg daily, potassium 40 mill equivalent daily, magnesium oxide 400 Mg daily. You will need repeat BMP level in 3 to 5 days time upon discharge, coordinate with your PCP office to set up the test. Follow-up with nephrology in 2 weeks time upon discharge. Follow-up with hepatology in 2 to 4 weeks time upon discharge. Given your recent history of upper GI bleed, you will need follow-up endoscopy in 2 months time upon discharge, coordinate with your GI office to set up the test. Take your medications as prescribed. Please make sure that you are able to get your medications today by calling your pharmacy before you leave the hospital so that your treatment continuity is not broken. Pending Studies at Discharge: No Stand-Alone Forms: My [employer], Smoking Cessation Medications and DC Order Prescriptions: New nicotine [Nicoderm CQ] 21 mg/24 hr Patch 24 Hour 1 patch transdermal QAM Qty: 28 0RF spironolactone 25 mg Tablet 25 mg PO DAILY Qty: 30 0RF furosemide 40 mg Tablet 40 mg PO DAILY Qty: 30 0RF potassium chloride 20 mEq Tablet,Er Particles/Crystals 40 meq PO DAILY Qty: 60 0RF magnesium oxide 400 mg (241.3 mg magnesium) Tablet 400 mg PO QAM Qty: 30 0RF Continued cyclobenzaprine 5 mg tablet 5 mg PO BID PRN (Reason: MUSCLE SPASMS) cholecalciferol (vitamin D3) [Vitamin D3] 125 mcg (5,000 unit) Tablet 125 mcg PO QAM thiamine HCl (vitamin B1) 100 mg Tablet 100 mg PO QAM Qty: 30 0RF folic acid 1 mg Tablet 1 mg PO QAM Qty: 30 0RF pantoprazole 40 mg tablet,delayed release (DR/EC) 40 mg PO BID Qty: 60 0RF Discontinued furosemide 20 mg tablet 20 mg PO DAILY Discharge Orders: Discharge Order (Routine); Ordered 02/07/25 Ordered By: Sammi Ortiz Admission Data Admit Date/Time: 02/03/25 23:56 Attending Provider: Sammi Ortiz Admit Provider: Johnathan Arias Primary Care Provider: Misael Vail Other Providers: Johnathan Arias; Blaze Isabel; Glenn Madrigal; Tawnya Banks; Rola Damon; Anna Rivera; Stefany Prince; Andrea Mendez; Gillian Stauffer; Vivi Lr; Cindy Shepherd; Edda Wheeler; Rashida Mcgregor; Shae Gutierrez; Jalyn Gallego; John Good; Reji Zuniga; Maria C Saleh; Jad Wilder Jr; Jeffrey Mahajan; [place]; Gabe Stanley; Derek Langley; Elsa Hwang; Umer Wade I; Ifrah Smiley; Nicholas Gillis; Mehdi He; Adela Aguiar; Kip Berger; Elyes Jain; Ilana Fajardo; Patricia Luis Other Interventions: Discharge Summary Assessment (RN) Last Done: 02/07/25 12:11
== END 2025-02-07 13:24 | disposition home or self-care (01) | DRG 433 ==
LOC: ED 20:29 → 2E 23:56

== ENCOUNTER 2025-06-13 08:07 | Inpatient (IN) ==
--- NOTE | 2025-06-13 08:36 | Emergency Department Note ---
Impression & Plan Acute upper gastrointestinal bleeding, Alcohol use, Cirrhosis of liver, Melena ED Provider Note CHIEF COMPLAINT: Diarrhea, vomiting, dark in color HISTORY OF PRESENT ILLNESS: This 59-year-old female patient with significant past medical history of alcoholic cirrhosis and bleeding esophageal varices, presents to the emergency department via ambulance for evaluation of dark in color diarrhea and emesis. The patient states that 3 AM, she developed diarrhea. She notes several episodes and states that it is black in color. She states that about an hour ago, she started experiencing several episodes of emesis which is a very dark brown/black in color. She does report a history of cirrhosis and upper GI bleeding/esophageal varices which were banded approximately a year ago here by GI. Pt. denies fever or chills. No cough or recent URI symptoms. No vision changes. No numbness, tingling, weakness. No abdominal pain. No chest pain or dyspnea. History provided by: Patient REVIEW OF SYSTEMS: A 10 system review of systems was performed with positives and pertinent negatives listed in the history of present illness. All other systems were reviewed and are negative. ALLERGIES: gluten, prednisone PHYSICAL EXAM: VITALS: Vitals are noted on the nurse's note and reviewed by myself. GENERAL: This is a 59-year-old female, in no acute distress, nondiaphoretic, well-developed well-nourished. SKIN: The skin was without rashes, erythema, edema, or bruising. There is no tenting of the skin. Capillary refill less than 2 seconds. HEAD: Normocephalic atraumatic. EYES: Conjunctivae without injection, sclerae without icterus. MOUTH: Mucous membranes moist. Tonsils are not enlarged. Pharynx without erythema or exudate. Uvula midline. Airway patent. Tongue does not deviate. NECK: Supple without nuchal rigidity. No lymphadenopathy. Cervical spine is nontender. No JVD. HEART: Regular rate and rhythm without murmurs gallops or rubs. LUNGS: Clear to auscultation bilaterally without wheezes, rales or rhonchi. No retractions or accessory muscle use. ABDOMEN: Positive bowel sounds x 4. Epigastric tenderness to palpation. Abdomen is otherwise soft, nontender, without masses or organomegaly. Mejia sign negative. No guarding or rebound tenderness. MUSCULOSKELETAL: No muscle atrophy, erythema, or edema noted. Full range of motion without joint tenderness in all extremities. No tenderness to palpation. Normal gait. Strength 5/5 throughout. NEURO: Patient was alert and oriented to person place and time. No focal neurological deficits. An order was placed for continuous campus monitor. The monitor showed a sinus tachycardia at a ventricular rate of 110 bpm, per my interpretation. EKG was reviewed by myself and found to be sinus tachycardia at a rate of 110 beats per minute and per my interpretation reveals no ST elevation or depression. No T wave inversion. And when compared to previous EKG of 02/23/2025 is without concerning change Imaging as interpreted by myself and the radiologist revealed no acute findings on CXR, with radiologist interpretation as above. I agree with the radiologist's findings as based upon my independent interpretation. EMERGENCY DEPARTMENT COURSE: The patient was evaluated as above. The patient presents to the emergency department for diarrhea, melena, and coffee-ground emesis. Patient denies hematochezia or hematemesis. No abdominal pain. She does have history of esophageal varices and alcoholic cirrhosis. IV access was obtained, labs were drawn. History is concerning for GI bleed. Patient was medicated with IV fluids, Pepcid, Zofran, Protonix bolus and drip, ceftriaxone, octreotide. Labs reviewed. Per my interpretation, no leukocytosis. There is a very mild with hemoglobin of 11.9. No thrombocytopenia. Renal, hepatic function and electrolytes without significant abnormality. INR elevated 1.4. Stool occult blood is positive. Chest x-ray as above. No acute findings. Given patient's history and symptoms, did recommend further evaluation by GI. I spoke with MELISSA Ortiz with gastroenterology. She did agree to evaluate the patient. Please see her dictation regarding this consultation. The patient would be taken to the endoscopy suite. I [facility]. Please see hospitalist and GI documentation regarding ongoing management and plan for this patient. Case was discussed with the attending physician. This visit is during a period of high volume and high acuity in the emergency department. I attest that I have personally reviewed the patient medication list. I attest that I have reviewed the patient's blood pressure and it was found to be normal GCS: 15 In the evaluation and treatment of this patient the following differential diagnoses were entertained: Diverticulosis, AVM, coagulopathy, colitis, inflammatory bowel disease, malignancy, Veronique-Espinal tear, esophagitis, peptic ulcer disease, variceal bleed, gastritis, epistaxis, fissure, hemorrhoids, as well as other pathologies. The chart was completed utilizing [employer] Speech voice recognition software. Grammatical errors, random word insertions, pronoun errors, and incomplete sentences are an occasional consequence of this system due to software limitations, ambient noise, and hardware issues. Any formal questions or concerns about the content, text, or information contained within the body of this dictation should be directly addressed to the provider for clarification. Past Med/Surg History Problem List Melena Cirrhosis of liver (Acute) Acute hyponatremia (Acute) Abdominal ascites (Acute) Alcohol use Encounter for pre-operative examination Hypotension Acute upper gastrointestinal bleeding (Acute) Hyperbilirubinemia (Acute) Abnormal urinalysis (Acute) Lactic acidosis (Acute) Transaminitis (Acute) Jaundice (Acute) Medical History Hematemesis Portal hypertensive gastropathy Syncope Alcoholic hepatitis Hyperbilirubinemia Prolonged QT interval Alcoholism, chronic Hypomagnesemia Hypokalemia Acute upper gastrointestinal bleeding Hyponatremia Celiac disease Tobacco use Surgical History H/O eye surgery Family History Other Prostate cancer Stroke Social History Smoking Status: Current every day smoker Tobacco Type: Cigarettes Cigarettes Per Day: 1 PPD; Second Hand Exposure: Yes; Do You Dip or Chew Tobacco: No; Hx Alcohol Use: Yes (quit 2 months ago) Alcohol type: hard liquor Alcohol type Comment: h/o heavy vodka intake, stopped drinking 3 weeks ago Hx Substance Use: No Preferred Language: Welsh Communication Ability: Effective Manager Drive Required: No Beliefs That Will Affect Care: None marital status: Single Current Living Situation: Spouse Current Living Situation Comment: Tien Nuñez current occupational status: unemployed Feels Safe at Home: Yes Assistive Devices: None Allergies Allergies Allergy/AdvReac Type Severity Reaction Status Date / Time gluten Allergy Unknown Hives Verified 06/13/25 09:46 prednisone AdvReac Intermediate Nausea,vomiting Verified 06/13/25 09:46 and diarrhea Home Meds Home Medications Medication Instructions Recorded Confirmed cholecalciferol (vitamin D3) 125 125 mcg PO QAM 01/24/25 06/13/25 mcg (5,000 unit) tablet (Vitamin D3) potassium chloride 20 mEq 40 meq PO QAM 02/23/25 06/13/25 tablet,extended release(part/cryst) Previous Rx's Medication Instructions Recorded folic acid 1 mg tablet 1 mg PO QAM #30 tabs 01/27/25 thiamine HCl (vitamin B1) 100 mg 100 mg PO QAM #30 tabs 01/27/25 tablet magnesium oxide 400 mg (241.3 mg 400 mg PO QAM #30 tabs 02/07/25 magnesium) tablet Results & Data (ED) Vital Signs Vital Signs - 24 hr 06/13/25 08:14 06/13/25 08:39 06/13/25 09:00 Temperature 36.9 C Temperature Source Oral Pulse Rate 110 H 113 H Pulse Rate [Apical] 93 H Pulse Rhythm Pulse Rhythm [Apical] Regular Pulse Strength [Apical] Respiratory Rate 16 16 Respiratory Effort / Characteristics Non-Labored Spontaneous Non-Labored Spontaneous Respiratory Depth Normal Normal Respiratory Pattern Regular Blood Pressure 123/84 Blood Pressure [Right Arm] 124/82 Blood Pressure Mean 97 Blood Pressure Mean [Right Arm] 96 Blood Pressure Position [Right Arm] Semi-fowlers Pulse Oximetry 97 96 Oxygen Delivery Method Room Air Room Air Sepsis Recent Fever Within 48 Hours No Sepsis New/Unexplained Change in Mental Status No Sepsis Action Taken by Nursing No Action Required 06/13/25 09:00 06/13/25 10:00 Temperature Temperature Source Pulse Rate 93 H Pulse Rate [Apical] 85 Pulse Rhythm Regular Pulse Rhythm [Apical] Regular Pulse Strength [Apical] Normal Respiratory Rate 16 18 Respiratory Effort / Characteristics Non-Labored Spontaneous Respiratory Depth Normal Respiratory Pattern Blood Pressure Blood Pressure [Right Arm] 126/75 Blood Pressure Mean Blood Pressure Mean [Right Arm] 92 Blood Pressure Position [Right Arm] Pulse Oximetry 96 97 Oxygen Delivery Method Room Air Room Air Sepsis Recent Fever Within 48 Hours Sepsis New/Unexplained Change in Mental Status Sepsis Action Taken by Nursing Laboratory Data 06/13/25 08:23 06/13/25 08:23 Lab Results 06/13/25 06/13/25 06/13/25 Range/Units 08:23 08:39 08:46 WBC 7.91 (4.8-10.8) K/ul RBC 4.17 L (4.20-5.40) M/uL Hgb 11.9 L (12.0-16.0) g/dl Hct 36.1 L (37.0-47.0) % MCV 86.6 (80.0-100.0) fL MCH 28.5 (25.0-34.0) pg MCHC 33.0 (32.0-36.0) g/dL RDW Std Deviation 56.6 H (36.4-46.3) fL RDW Coeff of Car 17.8 H (11.5-14.5) % Plt Count 160 (130-400) K/uL MPV 11.9 (9.4-12.4) fL Immature Gran % (Auto) 0.4 % Neut % (Auto) 69.4 % Lymph % (Auto) 22.1 % [place] % (Auto) 7.2 % Eos % (Auto) 0.1 % Baso % (Auto) 0.8 % Neut # (Auto) 5.49 (1.40-6.50) K/uL Lymph # (Auto) 1.75 (1.20-3.40) K/uL [place] # (Auto) 0.57 (0.11-0.59) K/uL Eos # (Auto) 0.01 (0.00-0.50) K/uL Baso # (Auto) 0.06 (0.00-0.20) K/uL Immature Gran # (Auto) 0.03 (0.01-0.20) K/uL PT 15.1 H (9.0-12.0) Seconds INR 1.4 H (0.9-1.1) APTT 29 (21-31) Seconds PTT Ratio 1.1 Sodium 137 (136-145) mmol/L Potassium 3.3 L (3.5-5.1) mmol/L Chloride 98 (98-107) mmol/L Carbon Dioxide 25 (21-32) mmol/L Anion Gap 14 H (3-11) BUN 18 (6-23) mg/dl Creatinine 0.58 L (0.6-1.2) mg/dl Est Cr Clr Drug Dosing 100.3 ml/min eGFR 103.54 BUN/Creatinine Ratio 31.0 H (10-20) Glucose 104 H (70-99(Fasting)) mg/dl Calcium 9.5 (8.6-10.3) mg/dl Total Bilirubin 1.3 H (0.2-1.0) mg/dl AST 59 H (13-39) U/L ALT 22 (7-52) U/L Alkaline Phosphatase 150 H (34-104) U/L Total Protein 8.3 (6.0-8.3) gm/dl Albumin 4.2 (3.4-5.0) gm/dl Globulin 4.1 H (2.5-4.0) gm/dl Albumin/Globulin Ratio 1.0 (0.9-2) Lipase 28 (11-82) U/L POC Stool Occult Blood Positive A (Negative) Blood Type A Positive Antibody Screen NEGATIVE Administered Medications Pantoprazole Sodium 40 mg/ (Dextrose) 100 mls @ 20 mls/hr IV Q5H ZITA Stop: 07/13/25 08:44 Last Admin: 06/13/25 09:22 Dose: 8 mg/hr, 20 mls/hr Documented By: DERIK Discontinued Medications Sodium Chloride (Nss) 1,000 mls @ 999 mls/hr IV .Q1H1M ZITA Stop: 06/13/25 09:30 Last Infusion: 06/13/25 10:02 Dose: Infused Documented By: Admin: 06/13/25 08:48 Dose: 999 mls/hr Documented By: DERIK Pantoprazole Sodium 80 mg/ (Dextrose) 120 mls @ 480 mls/hr IV NOW ONE Stop: 06/13/25 08:42 Last Infusion: 06/13/25 09:34 Dose: Infused Documented By: Admin: 06/13/25 08:57 Dose: 480 mls/hr Documented By: DERIK Famotidine (Pepcid 20mg Iv Push) 20 mg in 5 mls @ 2.5 mls/min IV NOW STA Stop: 06/13/25 08:29 Last Admin: 06/13/25 08:47 Dose: 2.5 mls/min Documented By: DERIK Ceftriaxone Sodium (Rocephin) 2,000 mg in 50 mls @ 100 mls/hr IV NOW STA Stop: 06/13/25 09:01 Last Infusion: 06/13/25 09:44 Dose: Infused Documented By: Admin: 06/13/25 08:48 Dose: 100 mls/hr Documented By: DERIK Octreotide Acetate 50 mcg/ (Syringe) 10 mls @ 3 mls/min IV ONE STA Stop: 06/13/25 08:35 Last Admin: 06/13/25 09:22 Dose: 3 mls/min Documented By: DERIK Miscellaneous (Stat Iv/Im) 1 each N/A NOW STA Stop: 06/13/25 08:33 Last Admin: 06/13/25 09:02 Dose: Not Given Documented By: DERIK Nicotine (Nicotine 7 Mg/24 Hr Tdsy) 1 patch TD NOW STA Stop: 06/13/25 09:37 Last Admin: 06/13/25 11:14 Dose: 1 patch Documented By: DERIK Ondansetron HCl (Ondansetron Inj 2 Mg/Ml 2 Ml Vial) 4 mg IV ONE STA Stop: 06/13/25 08:29 Last Admin: 06/13/25 08:47 Dose: 4 mg Documented By: DERIK Pantoprazole Sodium (Pantoprazole Bolus/Drip) 1 each IV NOW STA Stop: 06/13/25 08:29 Last Admin: 06/13/25 09:02 Dose: Not Given Documented By: DERIK Imaging Data Radiologist's Impression: Chest X-Ray 06/13/25 08:28 XR chest 1V portable CLINICAL HISTORY: vomiting, epigastric pain COMPARISON STUDY: 02/23/2025 FINDINGS: Heart size and pulmonary vasculature are normal. No consolidation or pleural effusion. No pneumothorax. IMPRESSION: No acute findings. ACT 112: Negative or not required by law. Electronically signed by: Refugio Bro M.D. 06/13/2025 8:52 AM Discharge Plan Visit Data Chief Complaint: GI Assessment ED Provider: Brittany Hsieh ED Midlevel Provider: Modesta Guillen Discharge Problem: Acute upper gastrointestinal bleeding, Alcohol use, Cirrhosis of liver, Melena Patient Disposition: Admitted As Inpatient Condition: Good Forms Stand Alone Forms: My [facility]MS Prescriptions Prescriptions: No Action magnesium oxide 400 mg (241.3 mg magnesium) Tablet 400 mg PO QAM Qty: 30 0RF Patient Comments: Pt is currently holding this medication, doesn't plan to start back until 06/16/25. States that they stop taking them from time to time just to reset their body. potassium chloride 20 mEq tablet,ER particles/crystals 40 meq PO QAM Patient Comments: Pt is currently holding this medication, doesn't plan to start back until 06/16/25. States that they stop taking them from time to time just to reset their body. cholecalciferol (vitamin D3) [Vitamin D3] 125 mcg (5,000 unit) Tablet 125 mcg PO QAM Patient Comments: Pt is currently holding this medication, doesn't plan to start back until 06/16/25. States that they stop taking them from time to time just to reset their body. thiamine HCl (vitamin B1) 100 mg Tablet 100 mg PO QAM Qty: 30 0RF Patient Comments: Pt is currently holding this medication, doesn't plan to start back until 06/16/25. States that they stop taking them from time to time just to reset their body. folic acid 1 mg Tablet 1 mg PO QAM Qty: 30 0RF Patient Comments: Pt is currently holding this medication, doesn't plan to start back until 06/16/25. States that they stop taking them from time to time just to reset their body. Referrals Referrals: Misael Vail MD [Primary Care Provider] -
[2025-06-13 08:42] LABS: Hematocrit (blood only) 36.1 % (37.0-47.0); Hemoglobin 11.9 g/dl (12.0-16.0); Immature Granulocytes # (auto) 0.03 K/uL (0.01-0.20); Immature Granulocytes % (auto) 0.4 %; Mean Corpuscular Hemoglobin 28.5 pg (25.0-34.0); Mean Corpuscular Volume 86.6 fL (80.0-100.0); Platelet Count 160 K/uL (130-400); RDW Standard Deviation 56.6 fL (36.4-46.3); Red Blood Count 4.17 M/uL (4.20-5.40); White Blood Count 7.91 K/ul (4.8-10.8)
[2025-06-13] MEDS: ONDANSETRON INJ 2 MG/ML 2 ML VIAL IV STA (08:47)
[2025-06-13] MEDS: FAMOTIDINE 20MG IV PUSH 20 MG/5 ML SYR IV STA (08:47)
[2025-06-13] MEDS: SODIUM CHLORIDE 0.9% 1,000 ML IV SCH (08:48)
[2025-06-13] MEDS: cefTRIAXone SODIUM 2,000 MG/50 ML BAG IV STA (08:48)
--- NOTE | 2025-06-13 08:53 | XRay Report ---
XR chest 1V portable CLINICAL HISTORY: vomiting, epigastric pain COMPARISON STUDY: 02/23/2025 FINDINGS: Heart size and pulmonary vasculature are normal. No consolidation or pleural effusion. No p neumothorax. IMPRESSION: No acute findings. ACT 112: Negative or not required by law. Electronically signed by: Refugio Bro M.D. 06/13/2025 8:52 AM
[2025-06-13 08:54] LABS: INR 1.4 (0.9-1.1); Partial Thromboplastin Time 29 Seconds (21-31); Prothrombin Time 15.1 Seconds (9.0-12.0)
[2025-06-13] MEDS: PANTOPRAZOLE BOLUS/DRIP IV STA (09:02)
[2025-06-13] MEDS: STAT IV/IM STA (09:02)
[2025-06-13 09:05] LABS: Anion Gap 14.0 (3-11); Bilirubin,Total 1.3 mg/dl (0.2-1.0); Calcium 9.5 mg/dl (8.6-10.3); Carbon Dioxide 25.0 mmol/L (21-32); Chloride 98.0 mmol/L (98-107); Potassium 3.3 mmol/L (3.5-5.1); Sodium 137.0 mmol/L (136-145)
[2025-06-13 09:11] LABS: Alanine Aminotransferase 22.0 U/L (7-52); Albumin Globulin Ratio 1.0 (0.9-2); Alkaline Phosphatase 150.0 U/L (34-104); Blood Urea Nitrogen 18.0 mg/dl (6-23); Creatinine Clr Calc Pharmacy 100.3 ml/min; Globulin 4.1 gm/dl (2.5-4.0); Glucose 104.0 mg/dl (70-99(Fasting)); Lipase 28.0 U/L (11-82); Total Protein 8.3 gm/dl (6.0-8.3)
[2025-06-13] MEDS: OCTREOTIDE ACETATE 50 MCG in SYRINGE 9.5 ML IV STA (09:22)
[2025-06-13] MEDS: PANTOprazole 40 MG in DEXTROSE 5% MINI-B 100 ML IV SCH (09:22)
--- NOTE | 2025-06-13 10:15 | Gastrointestinal Consultation ---
Date of Consultation June 13, 2025 Assessment & Plan (1) Melena: 59 year old female with history of hypertension, alcoholic liver disease w/ continued ETOH abuse (last drink 06/12/25 at least 5 ounces of vodka), esophageal varices, celiac disease, hyperthyroidism as per records, ongoing tobacco/alcohol abuse admitted through the ED with report of melena (06/12/25) and coffee ground emesis (06/13/25 around 0730). EGD in January 2025 w/ grade II varices (banded) and severe portal hypertensive gastropathy. At present she is hemodynamically stable w. BP 126/75, pulse 85 and HGB 11.9. DDX discussed: suspect oozing related to severe portal hypertensive gastropathy In the ED she was made NPO, started on IV PPI, octreotide and IV ABX as SBP prophylaxis. Maintain NPO status for EGD evaluation. Reglan 10 mg IV in anticipation of EGD.Trend H&H. Monitor and document GI output. Transfuse PRN per primary service. ETOH cessation is vital. Continue care w/ Dr. Gallego at [facility] Hepatology. MELD labs every 6 months. ABD imaging w/ AFP every 6 months. EGD every 1-2 years. No ETOH. No NSAIDs. Avoid hepatotoxin. Low NA diet, less than 2G daily. Less than 2G acetaminophen containing products daily. We appreciate assistance in the management of any serological abnormality and corrections to include: hemoglobin >7, INR <2, platelets >50,000, potassium levels >3.5 but <5.3, and sodium levels within 5 points of the reference range prior to endoscopic evaluation. Thank you for allowing us to participate in the care of this patient. Please call with any acute changes, questions or concerns. Please see addendum below with additional recommendation from my supervising physician. I spent a total of 60 minutes on the date of service in review of patient's record, and previously obtained information in person and appropriate medical visit, discussion and education of plan, with patient and/or caregiver, placing orders for tests/referral/procedures as medically necessary and documentation of pertinent clinical information in patient's medical records for their visit today. Supervising Physician Co-Signing Physician Notes I saw and examined this patient with our nurse practitioner and agree with her assessment and plan. Patient with recurrent GI bleeding. Long history of alcohol cirrhosis still drinking. Known esophageal varices and portal gastropathy. Recent endoscopy in January showed 2+ varices significant portal gastropathy status post band ligation of varices. Suspect recurrent bleeding more likely due to portal gastropathy and varices however will proceed with endoscopy for further evaluation. History of Present Illness Reason for Consultation: GI bleed Requesting Physician: Brittany Hsieh Attending Physician: Brittany Hsieh History of Present Illness 59 year old female with history of hypertension, alcoholic liver disease, esophageal varices, celiac disease, hyperthyroidism as per records, ongoing tobacco/alcohol abuse admitted through the ED with report of melena and coffee ground emesis. In the ED she was made NPO, started on IV PPI, octreotide and IV ABX as SBP prophylaxis. She tells me yesterday she developed dark, tarry BMs. Suggests too many to count. This AM woke up feeling nauseated, vomited and noted her emesis was black in color. Did not see any hematochezia or hematemesis. No abd pain. No edema. No fever, chills, CP, SOB. Continue to drink ETOH daiy, estimated 5 ounces of vodka daily Denies NSAIDs Last emesis was around 0730 She denies use of iron or pepto She follows with Dr. Gallego of Hepatology at [facility]. HGB 11.9 BUN 18 PLT 160 INR 1.4 Tb 1.3 AST 59 ALT 22 ALKP 150 ABD US 2024: Hepatosplenomegaly. Coarse liver texture. Stable. Small free fluid in the abdomen. New finding. Further assessment and clinical evaluation are advised. EGD 01/2025: Grade II varices were found in the lower third of the esophagus. They were medium in size. Two bands were successfully placed with complete eradication, resulting in deflation of varices. There was no bleeding during the procedure. - Severe portal hypertensive gastropathy was found in the entire examined stomach. With air insufflation and just touching the stomach there was slight oozing. She has moderately severe portal hypertensive gastropathy from chronic alcohol abuse and that is also likely contributing to her anemia and bleeding - The examined duodenum was normal. EGD 05/2024: Scar in the lower third of the esophagus. No residual varices seen. - Portal hypertensive gastropathy. - Normal duodenal bulb and second portion of the duodenum. - No specimens collected. Allergies Allergy/AdvReac Type Severity Reaction Status Date / Time gluten Allergy Unknown Hives Verified 06/13/25 09:46 prednisone AdvReac Intermediate Nausea,vomiting Verified 06/13/25 09:46 and diarrhea Home Medications Medication Instructions Recorded Confirmed Type cholecalciferol (vitamin D3) 125 125 mcg PO QAM 01/24/25 06/13/25 History mcg (5,000 unit) tablet (Vitamin D3) folic acid 1 mg tablet 1 mg PO QAM #30 tabs 01/27/25 06/13/25 Rx thiamine HCl (vitamin B1) 100 mg 100 mg PO QAM #30 tabs 01/27/25 06/13/25 Rx tablet magnesium oxide 400 mg (241.3 mg 400 mg PO QAM #30 tabs 02/07/25 06/13/25 Rx magnesium) tablet potassium chloride 20 mEq 40 meq PO QAM 02/23/25 06/13/25 History tablet,extended release(part/cryst) Patient History Medical History Hematemesis Portal hypertensive gastropathy Syncope Alcoholic hepatitis Hyperbilirubinemia Prolonged QT interval Alcoholism, chronic Hypomagnesemia Hypokalemia Acute upper gastrointestinal bleeding Hyponatremia Celiac disease Tobacco use Surgical History H/O eye surgery Family History Other Prostate cancer Stroke Social History Smoking Status: Current every day smoker Tobacco Type: Cigarettes Cigarettes Per Day: 1 PPD; Second Hand Exposure: Yes; Do You Dip or Chew Tobacco: No; Hx Alcohol Use: Yes (quit 2 months ago) Alcohol type: hard liquor Alcohol type Comment: h/o heavy vodka intake, stopped drinking 3 weeks ago Hx Substance Use: No Preferred Language: Kazakh Communication Ability: Effective [employer] Required: No Beliefs That Will Affect Care: None marital status: Single Current Living Situation: Spouse Current Living Situation Comment: Tien Nuñez current occupational status: unemployed Feels Safe at Home: Yes Assistive Devices: None Review of Systems Review of Systems: All other findings negative except as noted in HPI. Physical Exam Constitutional: WD/WN, vitals as above Respiratory: normal respiratory effort Gastrointestinal (Abdomen): normal bowel sounds, soft, nontender, no hepatosplenomegaly Skin: no rashes, warm and dry Results & Data Vital Signs (Past 12 Hours) Vital Signs Temp Pulse Pulse Resp BP BP Pulse Ox 06/13/25 10:00 85 18 126/75 97 06/13/25 09:00 93 H 16 96 06/13/25 09:00 93 H 16 124/82 96 06/13/25 08:39 113 H 06/13/25 08:14 98.4 F 110 H 16 123/84 97 O2 Del Method 06/13/25 10:00 Room Air 06/13/25 09:00 Room Air 06/13/25 09:00 Room Air 06/13/25 08:39 06/13/25 08:14 Room Air Laboratory Results 06/13/25 06/13/25 06/13/25 Range/Units 08:46 08:39 08:23 WBC 7.91 (4.8-10.8) K/ul RBC 4.17 L (4.20-5.40) M/uL Hgb 11.9 L (12.0-16.0) g/dl Hct 36.1 L (37.0-47.0) % MCV 86.6 (80.0-100.0) fL MCH 28.5 (25.0-34.0) pg MCHC 33.0 (32.0-36.0) g/dL RDW Std Deviation 56.6 H (36.4-46.3) fL RDW Coeff of Car 17.8 H (11.5-14.5) % Plt Count 160 (130-400) K/uL MPV 11.9 (9.4-12.4) fL Immature Gran % (Auto) 0.4 % Neut % (Auto) 69.4 % Lymph % (Auto) 22.1 % [place] % (Auto) 7.2 % Eos % (Auto) 0.1 % Baso % (Auto) 0.8 % Neut # (Auto) 5.49 (1.40-6.50) K/uL Lymph # (Auto) 1.75 (1.20-3.40) K/uL [place] # (Auto) 0.57 (0.11-0.59) K/uL Eos # (Auto) 0.01 (0.00-0.50) K/uL Baso # (Auto) 0.06 (0.00-0.20) K/uL Immature Gran # (Auto) 0.03 (0.01-0.20) K/uL PT 15.1 H (9.0-12.0) Seconds INR 1.4 H (0.9-1.1) APTT 29 (21-31) Seconds PTT Ratio 1.1 Sodium 137 (136-145) mmol/L Potassium 3.3 L (3.5-5.1) mmol/L Chloride 98 (98-107) mmol/L Carbon Dioxide 25 (21-32) mmol/L Anion Gap 14 H (3-11) BUN 18 (6-23) mg/dl Creatinine 0.58 L (0.6-1.2) mg/dl Est Cr Clr Drug Dosing 100.3 ml/min eGFR 103.54 BUN/Creatinine Ratio 31.0 H (10-20) Glucose 104 H (70-99(Fasting)) mg/dl Calcium 9.5 (8.6-10.3) mg/dl Total Bilirubin 1.3 H (0.2-1.0) mg/dl AST 59 H (13-39) U/L ALT 22 (7-52) U/L Alkaline Phosphatase 150 H (34-104) U/L Total Protein 8.3 (6.0-8.3) gm/dl Albumin 4.2 (3.4-5.0) gm/dl Globulin 4.1 H (2.5-4.0) gm/dl Albumin/Globulin Ratio 1.0 (0.9-2) Lipase 28 (11-82) U/L POC Stool Occult Blood Positive A (Negative) Blood Type A Positive Antibody Screen NEGATIVE PG Care Time/CCT Total # of Minutes Spent Total Time Spent with Patient: Total time spent is greater than 50% in coordination of care (as documented) at patient's floor/unit and/or counseling patient: Coding Level of Care Code 95511 INT INP/OBS CARE 3/75MIN Diagnoses Melena K92.1
[2025-06-13] MEDS ORDERED: SODIUM CHLORIDE 0.9% 100 ML IV PRN (10:22)
--- NOTE | 2025-06-13 10:31 | History & Physical Report ---
Date of Service June 13, 2025 Assessment & Plan (1) Acute upper gastrointestinal bleeding: (2) Cirrhosis of liver: (3) Hematemesis: (4) Portal hypertensive gastropathy: (5) Alcoholism, chronic: Plan This is a 59-year-old female who has a significant past medical history of alcoholic cirrhosis with ascites, esophageal varices, portal hypertensive gastropathy, HTN, celiac disease, GERD with esophagitis, osteopenia and tobacco use disorder who presents to ED secondary to melena and hematochezia x 1 day. #Coffee ground emesis #Possible acute UGIB #Portal HTN Gastropathy #Esophageal varices grade II, banded in January #Alcoholic Cirrhosis admit to [email or web address] consulted remain NPO, plan for EGD later today Pt started on Octreotide gtt and PPI gtt in ED, will continue Continue 2g IV Rocephin daily for SBP ppx NSS + KCL x 1 L while NPO encourage EOTH Cessation, < 2g na diet, MELD labs per GI Type and cross, place 4 units on hold, trend h/h, transfuse if hgb < 7 or pt unstable Blood consent was obtained from the patient (or patient delegate) as delegated by Dr. Zimmerman. Risks and benefits were explained. All questions were answered, and the patient (or patient delegate) was offered the opportunity to discuss with attending physician and declined. #Hypokalemia: replace #Chronic Alcoholism: drinking 5oz vodka/tonic water daily, AWSS protocol, prn IV ativan, gabapentin protocol, thiamine, FA #Tobacco abuse: encourage cessation, 1ppd, nicotine patch ordered DVT ppx: SCDS FULL CODE PCP: Genna Dispo: admit to [email or web address] Pt was seen and examined in collaboration with Dr. Zimmerman, please see addendum I spent a total of 60 minutes coordinating, documenting and providing care for this patient excluding time spent in the performance of separately billed services or time spent by another provider/QHP. History of Present Illness Chief Complaint: melena and hematochezia x 1 day. Primary Care Provider: Misael Vail MD This is a 59-year-old female who has a significant past medical history of alcoholic cirrhosis with ascites, esophageal varices, portal hypertensive gastropathy, HTN, celiac disease, GERD with esophagitis, osteopenia and tobacco use disorder who presents to ED secondary to melena and hematochezia x 1 day. is at bedside who also helps elicit hx. At approximately 3 AM this morning she developed diarrhea. She had several episodes for which she reports they were green in color. She denies any latia abdominal pain with the d iarrhea. She reports prior to the first episode she had full body cramps but that has since subsided. No known sick contacts. SHe didn't eat anything abnormal or different from . About an hour prior to arrival she also started vomiting that was coffee-ground in nature. Because of the coffee ground emesis she called EMS. She has never had anything like this before. She was last hospitalized here January 2025 2/ decompensated cirrhosis. 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 Gallego with [facility]. She denies any recent illness, f/c/s, chest pain, sob, edema, uri sx, cough,abd bloating, dysuria, increased urg/freq with urination or hematuria. Until last night her appetite had been normal. She actually stopped taking all her medications including vitamins to give herself a break. She is drinking 5oz of vokda daily, because she can only tolerate so much water. She does watch her sodium and fluid intake. She feels her cirrhosis is managed at this point. Last EGD was 01/2025 which revealed grade 2 esophageal varices found in the lower third of esophagus medium in size, severe portal hypertensive gastropathy found in the entire stomach with slight oozing, 2 bands were successfully placed to complete eradication and deflation of the varices. She has a venous duplex for portal vein in February was was unremarkable for arterial and venous flow. In ED patient remained hemodynamically stable. Notable lab abnormalities include H&H 11.9 and 36.1, INR 1.4, potassium 3.3, total bili 1.3, AST 59, alk phos 150 and stool occult blood positive. She was started on IV Protonix, octreotide, ceftriaxone and received IV fluids. Allergies Allergy/AdvReac Type Severity Reaction Status Date / Time gluten Allergy Unknown Hives Verified 06/13/25 09:46 prednisone AdvReac Intermediate Nausea,vomiting Verified 06/13/25 09:46 and diarrhea Home Medications Medication Instructions Recorded Confirmed Type cholecalciferol (vitamin D3) 125 125 mcg PO QAM 01/24/25 06/13/25 History mcg (5,000 unit) tablet (Vitamin D3) folic acid 1 mg tablet 1 mg PO QAM #30 tabs 01/27/25 06/13/25 Rx thiamine HCl (vitamin B1) 100 mg 100 mg PO QAM #30 tabs 01/27/25 06/13/25 Rx tablet magnesium oxide 400 mg (241.3 mg 400 mg PO QAM #30 tabs 02/07/25 06/13/25 Rx magnesium) tablet potassium chloride 20 mEq 40 meq PO QAM 02/23/25 06/13/25 History tablet,extended release(part/cryst) Past Med/Surg History Problem List Melena Cirrhosis of liver (Acute) Acute hyponatremia (Acute) Abdominal ascites (Acute) Alcohol use Encounter for pre-operative examination Hypotension Acute upper gastrointestinal bleeding (Acute) Hyperbilirubinemia (Acute) Abnormal urinalysis (Acute) Lactic acidosis (Acute) Transaminitis (Acute) Jaundice (Acute) Medical History Hematemesis Portal hypertensive gastropathy Syncope Alcoholic hepatitis Hyperbilirubinemia Prolonged QT interval Alcoholism, chronic Hypomagnesemia Hypokalemia Acute upper gastrointestinal bleeding Hyponatremia Celiac disease Tobacco use Surgical History H/O eye surgery Family History Other Prostate cancer Stroke Social History Smoking Status: Current every day smoker Tobacco Type: Cigarettes Cigarettes Per Day: 1 pack/day; Second Hand Exposure: Yes; Do You Dip or Chew Tobacco: No; Hx Alcohol Use: Yes Alcohol type: hard liquor Alcohol type Comment: h/o heavy vodka intake, stopped drinking 3 weeks ago Hx Substance Use: No Preferred Language: Colombian Communication Ability: Effective Fuse Cup Expander Required: No Beliefs That Will Affect Care: None marital status: Single Current Living Situation: Spouse Current Living Situation Comment: [place] current occupational status: unemployed Feels Safe at Home: Yes Assistive Devices: None Review of Systems Review of Systems: All systems reviewed & are unremarkable except as noted in HPI & below Physical Exam Physical Exam: Constitutional: WD/WN, vitals as above, NAD, sitting up in bed, pleasant, conversing easily Head: Normocephalic, Atraumatic Eyes: conjunctivae normal, anicteric sclerae ENMT: external ear and nose normal, oropharynx normal Neck: trachea midline, no thyromegaly normal visual inspection Respiratory: normal respiratory effort, lungs clear to auscultation, no wheeze, rales, rhonchi. Cardiovascular: RRR, no murmur, no edema Vessels: no JVD or carotid bruit Chest: normal inspection of chest Abdomen: normal bowel sounds, soft, nontender, no hepatosplenomegaly Musculoskeletal: no cyanosis or clubbing, arom x 4 Skin: no rashes, warm and dry normal turgor Neurologic: no face palsy, no dysarthria CN's II-XI intact bilaterally and moves all extremities Psychiatric: A+Ox3, euthymic affect Results & Data Results & Data Vital Signs (Past 12 Hours) Vital Signs Temp Pulse Pulse Resp BP BP Pulse Ox 06/13/25 10:00 85 18 126/75 97 06/13/25 09:00 93 H 16 96 06/13/25 09:00 93 H 16 124/82 96 06/13/25 08:39 113 H 06/13/25 08:14 36.9 C 110 H 16 123/84 97 O2 Del Method 06/13/25 10:00 Room Air 06/13/25 09:00 Room Air 06/13/25 09:00 Room Air 06/13/25 08:39 06/13/25 08:14 Room Air Laboratory Results I have independently reviewed and interpreted patient's admitting labs including CBC, CMP, PTT, PT/INR, lipase . Diagnostic Findings Chest X-Ray 06/13/25 08:28 XR chest 1V portable CLINICAL HISTORY: vomiting, epigastric pain COMPARISON STUDY: 02/23/2025 FINDINGS: Heart size and pulmonary vasculature are normal. No consolidation or pleural effusion. No pneumothorax. IMPRESSION: No acute findings. ACT 112: Negative or not required by law. Electronically signed by: Refugio Bro M.D. 06/13/2025 8:52 AM Medications Administered Medication List Pantoprazole Sodium 40 mg/ (Dextrose) 100 mls @ 20 mls/hr IV Q5H ZITA Stop: 07/13/25 08:44 Last Admin: 06/13/25 09:22 Dose: 8 mg/hr, 20 mls/hr Documented By: DERIK Discontinued Medications Sodium Chloride (Nss) 1,000 mls @ 999 mls/hr IV .Q1H1M ZITA Stop: 06/13/25 09:30 Last Infusion: 06/13/25 10:02 Dose: Infused Documented By: Admin: 06/13/25 08:48 Dose: 999 mls/hr Documented By: DERIK Pantoprazole Sodium 80 mg/ (Dextrose) 120 mls @ 480 mls/hr IV NOW ONE Stop: 06/13/25 08:42 Last Infusion: 06/13/25 09:34 Dose: Infused Documented By: Admin: 06/13/25 08:57 Dose: 480 mls/hr Documented By: DERIK Famotidine (Pepcid 20mg Iv Push) 20 mg in 5 mls @ 2.5 mls/min IV NOW STA Stop: 06/13/25 08:29 Last Admin: 06/13/25 08:47 Dose: 2.5 mls/min Documented By: DERIK Ceftriaxone Sodium (Rocephin) 2,000 mg in 50 mls @ 100 mls/hr IV NOW STA Stop: 06/13/25 09:01 Last Infusion: 06/13/25 09:44 Dose: Infused Documented By: Admin: 06/13/25 08:48 Dose: 100 mls/hr Documented By: DERIK Octreotide Acetate 50 mcg/ (Syringe) 10 mls @ 3 mls/min IV ONE STA Stop: 06/13/25 08:35 Last Admin: 06/13/25 09:22 Dose: 3 mls/min Documented By: DERIK Miscellaneous (Stat Iv/Im) 1 each N/A NOW STA Stop: 06/13/25 08:33 Last Admin: 06/13/25 09:02 Dose: Not Given Documented By: DERIK Ondansetron HCl (Ondansetron Inj 2 Mg/Ml 2 Ml Vial) 4 mg IV ONE STA Stop: 06/13/25 08:29 Last Admin: 06/13/25 08:47 Dose: 4 mg Documented By: DERIK Pantoprazole Sodium (Pantoprazole Bolus/Drip) 1 each IV NOW STA Stop: 06/13/25 08:29 Last Admin: 06/13/25 09:02 Dose: Not Given Documented By: FG COVID-19 Results Results COVID-19 Adm Lab Results: RBC 4.17 M/uL (4.20-5.40) L 06/13/25 WBC 7.91 K/ul (4.8-10.8) 06/13/25 Hgb 9.6 g/dl (12.0-16.0) L 06/14/25 Hct 29.8 % (37.0-47.0) L 06/14/25 Plt Count 160 K/uL (130-400) 06/13/25 Neutrophils (%) (Auto) 69.4 % 06/13/25 Lymphocytes (%) (Auto) 22.1 % 06/13/25 Monocytes # (Auto) 0.57 K/uL (0.11-0.59) 06/13/25 Eosinophils # (Auto) 0.01 K/uL (0.00-0.50) 06/13/25 Immature Granulocyte % (Auto) 0.4 % 06/13/25 Neutrophils # (Auto) 5.49 K/uL (1.40-6.50) 06/13/25 Lymphocytes # (Auto) 1.75 K/uL (1.20-3.40) 06/13/25 Monocytes # (Auto) 0.57 K/uL (0.11-0.59) 06/13/25 Eosinophils # (Auto) 0.01 K/uL (0.00-0.50) 06/13/25 Basophils # (Auto) 0.06 K/uL (0.00-0.20) 06/13/25 Immature Granulocyte # (Auto) 0.03 K/uL (0.01-0.20) 5 Na 137 mmol/L (136-145) 06/13/25 K 3.3 mmol/L (3.5-5.1) L 06/13/25 Cl 98 mmol/L (98-107) 06/13/25 CO2 25 mmol/L (21-32) 06/13/25 Anion Gap 14 (3-11) H 06/13/25 BUN 18 mg/dl (6-23) 06/13/25 Creatinine 0.58 mg/dl (0.6-1.2) L 06/13/25 BUN/Creatinine Ratio 31.0 (10-20) H 06/13/25 Glucose Level 104 mg/dl (70-99(Fasting)) H 06/13/25 Ca 9.5 mg/dl (8.6-10.3) 06/13/25 Total Bilirubin 1.3 mg/dl (0.2-1.0) H 06/13/25 AST/SGOT 59 U/L (13-39) H 06/13/25 ALT/SGPT 22 U/L (7-52) 06/13/25 Alkaline Phosphatase 150 U/L (34-104) H 06/13/25 Total Protein 8.3 gm/dl (6.0-8.3) 06/13/25 Albumin 4.2 gm/dl (3.4-5.0) 06/13/25 Globulin 4.1 gm/dl (2.5-4.0) H 06/13/25 Albumin/Globulin Ratio 1.0 (0.9-2) 06/13/25 PTT 29 Seconds (21-31) 06/13/25 INR 1.4 (0.9-1.1) H 06/13/25 Chest X-Ray 06/13/25 Code Status & VTE Plan Code Status FULL CODE VTE Prophylaxis Plan VTE Prophylaxis will be ordered: Yes Supervising Physician Co-Signing Physician Notes Attending Addendum: Case reviewed with the advanced practitioner. I have personally performed a history and physical examination on the patient. I have reviewed the advanced practitioner's documentation on the date of service referenced in note, and I agree with, and take responsibility for the plan of care. please refer to her notes for full details patient seen and examined, records reviewed by myself as well on exam, patient seen resting in bed, comfortable, in good spirits states she had 2 episodes of coffee ground emesis this morning no active abdominal pain, nausea on exam no recurrence of GI bleed while at the ER no dizziness, chest pain, shortness of breath last drink yesterday, denies tremors, sweating, confusion reports she had an episode of alcohol while admitted to the hospital in the past no other symptoms VS noted and reviewed oriented x3, not in distress, speaks in sentences with no effort nor accessory muscle use normal rate, regular rhythm, no murmurs clear breath sounds bilaterally non distended, soft, nontender no bipedal edema, erythema, warmth no tremors no neuro deficits all labs, imaging noted and reviewed ASSESSMENT AND PLAN> UPPER GI BLEED HISTORY OF LIVER CIRRHOSIS WITH PORTAL HYPERTENSION, VARICES Hg at baseline, monitor q6h IV Protonix drip, Octreotide, Ceftriaxone GI consulted, planning for EGD ALCOHOLISM Alcohol withdrawal protocol including Gabapentin taper monitor closely as patient reports history of alcohol withdrawal while admitted in the past other diagnoses and plan of care as per advanced practitioner's notes I spent a total of 45 minutes coordinating, documenting, and providing care for this patient, excluding time spent in the performance of separately billed services or time spent by another provider/QHP. Des Zimmerman MD
[2025-06-13] MEDS: NICOTINE 7 MG/24 HR TDSY TD STA (11:14)
[2025-06-13] MEDS: POTASSIUM CHLORIDE / WTR 10 MEQ/100 ML PLCT IV SCH (12:24)
[2025-06-13 13:20] LABS: Hematocrit (blood only) 30.5 % (37.0-47.0); Hemoglobin 10.0 g/dl (12.0-16.0)
[2025-06-13] MEDS ORDERED: ONDANSETRON INJ 2 MG/ML 2 ML VIAL IV PRN (13:21)
[2025-06-13] MEDS ORDERED: STAT IV/IM STA (13:21)
[2025-06-13] MEDS ORDERED: MELATONIN 3 MG TAB PO PRN (13:21)
[2025-06-13] MEDS ORDERED: ACETAMINOPHEN 325 MG TAB PO PRN (13:21)
[2025-06-13] MEDS: OCTREOTIDE ACETATE 500 MCG in SODIUM CHLORIDE 0.9% 100 ML IV SCH (13:57)
[2025-06-13] MEDS: NSS + 20MEQ KCL 20 MEQ/1,000 ML BAG IV SCH (13:57)
[2025-06-13] MEDS: METOCLOPRAMIDE HCL INJ 5 MG/ML 2 ML VIAL IV ONE (14:57)
[2025-06-13] MEDS ORDERED: GABAPENTIN 1200MG ALCOHOL WITHDRAWAL LOAD PO STA (15:21)
[2025-06-13] MEDS: GABAPENTIN 600 MG TAB PO ONE (15:56)
[2025-06-13 21:00] LABS: Hematocrit (blood only) 26.6 % (37.0-47.0); Hemoglobin 8.7 g/dl (12.0-16.0)
[2025-06-13] MEDS: GABAPENTIN 600 MG TAB PO SCH (21:03)
[2025-06-14 01:48] LABS: Hematocrit (blood only) 29.8 % (37.0-47.0); Hemoglobin 9.6 g/dl (12.0-16.0)
[2025-06-14 06:58] LABS: Hematocrit (blood only) 27.6 % (37.0-47.0); Hemoglobin 8.9 g/dl (12.0-16.0); Immature Granulocytes # (auto) 0.02 K/uL (0.01-0.20); Immature Granulocytes % (auto) 0.4 %; Mean Corpuscular Hemoglobin 28.6 pg (25.0-34.0); Mean Corpuscular Volume 88.7 fL (80.0-100.0); Platelet Count 102 K/uL (130-400); RDW Standard Deviation 59.7 fL (36.4-46.3); Red Blood Count 3.11 M/uL (4.20-5.40); White Blood Count 4.93 K/ul (4.8-10.8)
[2025-06-14 07:27] LABS: Alanine Aminotransferase 13.0 U/L (7-52); Albumin Globulin Ratio 1.1 (0.9-2); Alkaline Phosphatase 99.0 U/L (34-104); Anion Gap 4.0 (3-11); Bilirubin,Total 1.3 mg/dl (0.2-1.0); Blood Urea Nitrogen 17.0 mg/dl (6-23); Calcium 8.1 mg/dl (8.6-10.3); Carbon Dioxide 28.0 mmol/L (21-32); Chloride 106.0 mmol/L (98-107); Creatinine Clr Calc Pharmacy 81.9 ml/min; Globulin 2.8 gm/dl (2.5-4.0); Glucose 106.0 mg/dl (70-99(Fasting)); Magnesium 1.1 mg/dl (1.7-2.4); Potassium 3.9 mmol/L (3.5-5.1); Sodium 138.0 mmol/L (136-145); Total Protein 5.9 gm/dl (6.0-8.3)
--- NOTE | 2025-06-14 09:18 | Hospitalist Progress Note ---
Date of Service June 14, 2025 Assessment & Plan (1) Acute upper gastrointestinal bleeding: (2) Cirrhosis of liver: (3) Hematemesis: (4) Portal hypertensive gastropathy: (5) Alcoholism, chronic: Plan This is a 59-year-old female who has a significant past medical history of alcoholic cirrhosis with ascites, esophageal varices, portal hypertensive gastropathy, HTN, celiac disease, GERD with esophagitis, osteopenia and tobacco use disorder who presents to ED secondary to melena and hematochezia x 1 day. Coffee ground emesis Possible acute UGIB Portal HTN Gastropathy Esophageal varices grade II, banded in January Alcoholic Cirrhosis admitted to [facility] tele GI consulted - plan for EGD later today Pt started on Octreotide gtt and PPI gtt in ED, will continue Continue 2g IV Rocephin daily for SBP ppx Encourage EOTH Cessation, < 2g na diet, MELD labs per GI Type and cross, pRBC on hold, trend h/h, transfuse if hgb < 7 or pt unstable Blood consent was obtained Hypokalemia, Hypomagnesemia replace and monitor Chronic Alcoholism drinking 5oz vodka/tonic water daily, AWSS protocol, prn IV ativan, gabapentin protocol, thiamine, FA Tobacco abuse: encourage cessation, 1ppd, nicotine patch ordered DVT ppx: SCDS FULL CODE PCP: Dr. Vail Dispo:[employer] Admission and Anticipated Discharge Date Admission Date: June 13, 2025 Subjective Pt seen in follow up of GI bleed, hx of etoh cirrhosis, esoph. varices No vomiting or diarrhea since coming to the hospital Currently lying in bed in NAD, overall says she feels well just tired. Denies any abdominal pain. Denies fever, chills, chest pain or shortness of breath Pt's mother visiting at the bedside Pt seen by GI - plan for endoscopy today Review of Systems Review of Systems: All systems reviewed & are unremarkable except as noted in Subjective Physical Exam Physical Exam: Constitutional: WD/WN, adult F in NAD Head: Normocephalic, Atraumatic Eyes: conjunctivae normal, anicteric sclerae ENMT: external ear and nose normal Neck: normal visual inspection Respiratory: normal respiratory effort, lungs clear to auscultation, no wheeze, rales, rhonchi. Cardiovascular: RRR, no murmur, no edema Chest: normal inspection of chest Abdomen: normal bowel sounds, soft, nontender Musculoskeletal: no LE edema, moves extremities Skin: no rashes, warm and dry normal turgor Neurologic: no face palsy, no dysarthria, answers appropriately, moves all ex tremities Psychiatric: A+Ox3, euthymic affect Results & Data Results & Data Vital Signs (Past 12 Hours) Vital Signs Temp Pulse Pulse Resp BP Pulse Ox O2 Del Method 06/14/25 07:36 71 06/14/25 06:58 36.7 C 70 16 105/68 93 Room Air 06/14/25 03:17 36.9 C 69 18 105/68 91 Room Air 06/13/25 23:43 75 06/13/25 23:35 78 18 103/67 96 Room Air Laboratory Results 06/14/25 06/14/25 06/13/25 Range/Units 06:38 01:22 19:48 WBC 4.93 (4.8-10.8) K/ul RBC 3.11 L (4.20-5.40) M/uL Hgb 8.9 L 9.6 L 8.7 L (12.0-16.0) g/dl Hct 27.6 L 29.8 L 26.6 L (37.0-47.0) % MCV 88.7 (80.0-100.0) fL MCH 28.6 (25.0-34.0) pg MCHC 32.2 (32.0-36.0) g/dL RDW Std Deviation 59.7 H (36.4-46.3) fL RDW Coeff of Car 18.4 H (11.5-14.5) % Plt Count 102 L (130-400) K/uL MPV 11.4 (9.4-12.4) fL Immature Gran % (Auto) 0.4 % Neut % (Auto) 47.5 % Lymph % (Auto) 39.4 % Caswell % (Auto) 9.5 % Eos % (Auto) 2.0 % Baso % (Auto) 1.2 % Neut # (Auto) 2.34 (1.40-6.50) K/uL Lymph # (Auto) 1.94 (1.20-3.40) K/uL [place] # (Auto) 0.47 (0.11-0.59) K/uL Eos # (Auto) 0.10 (0.00-0.50) K/uL Baso # (Auto) 0.06 (0.00-0.20) K/uL Immature Gran # (Auto) 0.02 (0.01-0.20) K/uL Sodium 138 (136-145) mmol/L Potassium 3.9 (3.5-5.1) mmol/L Chloride 106 (98-107) mmol/L Carbon Dioxide 28 (21-32) mmol/L Anion Gap 4 (3-11) BUN 17 (6-23) mg/dl Creatinine 0.71 (0.6-1.2) mg/dl Est Cr Clr Drug Dosing 81.9 ml/min eGFR 97.28 BUN/Creatinine Ratio 23.9 H (10-20) Glucose 106 H (70-99(Fasting)) mg/dl Calcium 8.1 L (8.6-10.3) mg/dl Magnesium 1.1 L (1.7-2.4) mg/dl Total Bilirubin 1.3 H (0.2-1.0) mg/dl AST 40 H (13-39) U/L ALT 13 (7-52) U/L Alkaline Phosphatase 99 (34-104) U/L Total Protein 5.9 L D (6.0-8.3) gm/dl Albumin 3.1 L (3.4-5.0) gm/dl Globulin 2.8 (2.5-4.0) gm/dl Albumin/Globulin Ratio 1.1 (0.9-2) Blood Type Antibody Screen 06/13/25 06/13/25 Range/Units 12:42 08:39 WBC (4.8-10.8) K/ul RBC (4.20-5.40) M/uL Hgb 10.0 L (12.0-16.0) g/dl Hct 30.5 L (37.0-47.0) % MCV (80.0-100.0) fL MCH (25.0-34.0) pg MCHC (32.0-36.0) g/dL RDW Std Deviation (36.4-46.3) fL RDW Coeff of Car (11.5-14.5) % Plt Count (130-400) K/uL MPV (9.4-12.4) fL Immature Gran % (Auto) % Neut % (Auto) % Lymph % (Auto) % [place] % (Auto) % Eos % (Auto) % Baso % (Auto) % Neut # (Auto) (1.40-6.50) K/uL Lymph # (Auto) (1.20-3.40) K/uL [place]well # (Auto) (0.11-0.59) K/uL Eos # (Auto) (0.00-0.50) K/uL Baso # (Auto) (0.00-0.20) K/uL Immature Gran # (Auto) (0.01-0.20) K/uL Sodium (136-145) mmol/L Potassium (3.5-5.1) mmol/L Chloride (98-107) mmol/L Carbon Dioxide (21-32) mmol/L Anion Gap (3-11) BUN (6-23) mg/dl Creatinine (0.6-1.2) mg/dl Est Cr Clr Drug Dosing ml/min eGFR BUN/Creatinine Ratio (10-20) Glucose (70-99(Fasting)) mg/dl Calcium (8.6-10.3) mg/dl Magnesium (1.7-2.4) mg/dl Total Bilirubin (0.2-1.0) mg/dl AST (13-39) U/L ALT (7-52) U/L Alkaline Phosphatase (34-104) U/L Total Protein (6.0-8.3) gm/dl Albumin (3.4-5.0) gm/dl Globulin (2.5-4.0) gm/dl Albumin/Globulin Ratio (0.9-2) Blood Type A Positive Antibody Screen NEGATIVE Medications Administered Current Inpatient Medications Acetaminophen (Acetaminophen 325 Mg Tab) 650 mg PO Q4H PRN PRN Reason: Pain or Fever Stop: 07/13/25 13:20 Folic Acid (Folic Acid 1 Mg Tab) 1 mg PO QAM [facility] Stop: 07/14/25 08:59 Gabapentin (Gabapentin 600 Mg Tab) 600 mg PO Q8H [facility] Stop: 06/15/25 06:01 Gabapentin (Gabapentin 600 Mg Tab) 600 mg PO Q12H [facility] Stop: 06/16/25 06:01 Gabapentin (Gabapentin 600 Mg Tab) 600 mg PO Q24H [facility]ITA Stop: 06/17/25 06:01 Pantoprazole Sodium 40 mg/ (Dextrose) 100 mls @ 20 mls/hr IV Q5H [facility] Stop: 07/13/25 08:44 Last Admin: 06/14/25 06:29 Dose: 8 mg/hr, 20 mls/hr Octreotide Acetate 500 mcg/ (Sodium Chloride) 100.5 mls @ 10.05 mls/hr IV .Q10H [facility] Stop: 07/13/25 13:20 Last Admin: 06/14/25 05:57 Dose: 50 mcg/hr, 10.1 mls/hr Ceftriaxone Sodium (Rocephin) 2,000 mg in 50 mls @ 100 mls/hr IV Q24H [facility] Stop: 06/24/25 07:59 Magnesium Sulfate/Dextrose (Magnesium Sulfate / D5w) 1 gm in 100 mls @ 50 mls/hr IV ONE ONE Stop: 06/14/25 11:11 Lorazepam (Lorazepam 2 Mg/1 Ml Vial) 1 mg IV ONE PRN; Protocol PRN Reason: EtoH Withdrawal AWSS 6-10 Melatonin (Melatonin 3 Mg Tab) 3 mg PO HS PRN PRN Reason: Sleep Stop: 07/13/25 13:20 Miscellaneous (Remove Nicoderm Patch) 1 each N/A DAILY@[id number] [facility] Stop: 07/14/25 08:58 Ondansetron HCl (Ondansetron Inj 2 Mg/Ml 2 Ml Vial) 4 mg IV Q6H PRN PRN Reason: Nausea Stop: 07/13/25 13:20 Thiamine HCl (Thiamine Hcl 100 Mg Tab) 100 mg PO QAM [facility] Stop: 07/14/25 08:59
[2025-06-14] MEDS: REMOVE NICODERM PATCH SCH (09:22)
[2025-06-14] MEDS: THIAMINE HCL 100 MG TAB PO SCH (09:22)
[2025-06-14] MEDS: FOLIC ACID 1 MG TAB PO SCH (09:22)
[2025-06-14] MEDS: cefTRIAXone SODIUM 2,000 MG/50 ML BAG IV SCH (09:22)
--- NOTE | 2025-06-14 10:09 | Gastroenterology Progress Note ---
Date of Service June 14, 2025 Assessment & Plan (1) Melena: Plan: 59 year old female with history of hypertension, alcoholic liver disease w/ continued ETOH abuse (last drink 06/12/25 at least 5 ounces of vodka), esophageal varices, celiac disease, hyperthyroidism as per records, ongoing tobacco/alcohol abuse admitted through the ED with report of melena (06/12/25) and coffee ground emesis (06/13/25 around 0730). EGD in January 2025 w/ grade II varices (banded) and severe portal hypertensive gastropathy. At present she is hemodynamically stable w. BP 126/75, pulse 85 and HGB 11.9. DDX discussed: suspect oozing related to severe portal hypertensive gastropathy NPO for EGD evaluation. We appreciate assistance in the management of any serological abnormality and corrections to include: hemoglobin >7, INR <2, platelets >50,000, potassium levels >3.5 but <5.3, and sodium levels within 5 points of the reference range prior to endoscopic evaluation. Thank you for allowing us to participate in the care of this patient. Please call with any acute changes, questions or concerns. Please see addendum below with additional recommendation from my supervising physician. Admission and Anticipated Discharge Date Admission Date: June 13, 2025 Supervising Physician Co-Signing Physician Notes I saw and examined this patient with our nurse practitioner and agree with her assessment and plan. Hemodynamically stable we will proceed with endoscopy today. Subjective Pt is NPO for EGD. Endorsing green stools now. No black or bloody stools. No fever, chills, CP, SOB. Review of Systems Review of Systems: All other findings negative except as noted in HPI. Physical Exam Constitutional: WD/WN, vitals as above Respiratory: normal respiratory effort, lungs clear to auscultation Cardiovascular: Rate/Rhythm: regular rate Gastrointestinal (Abdomen): normal bowel sounds, soft, nontender, no hepatosplenomegaly Skin: no rashes, warm and dry Results & Data Results & Data Vital Signs (Past 12 Hours) Vital Signs Temp Pulse Pulse Resp BP Pulse Ox O2 Del Method 06/14/25 07:36 71 06/14/25 06:58 98.1 F 70 16 105/68 93 Room Air 06/14/25 03:17 98.4 F 69 18 105/68 91 Room Air 06/13/25 23:43 75 06/13/25 23:35 78 18 103/67 96 Room Air PG Care Time/CCT Total # of Minutes Spent Total Time Spent with Patient: Total time spent is greater than 50% in coordination of care (as documented) at patient's floor/unit and/or counseling patient: Coding Level of Care Code None Diagnoses Melena K92.1
[2025-06-14] MEDS: MAGNESIUM SULFATE / D5W 1 GM/100 ML BAG IV ONE ×2 (10:21→12:45)
[2025-06-14] MEDS: NICOTINE 7 MG/24 HR TDSY TD SCH (10:49)
[2025-06-14 13:19] LABS: Hematocrit (blood only) 28.3 % (37.0-47.0); Hemoglobin 9.0 g/dl (12.0-16.0)
--- NOTE | 2025-06-14 14:17 | Anesthesiology Consultation ---
Date of Service June 14, 2025 Assessment & Plan Chart Review Chart Review: Acceptable Risk for Surgery and Patient NOT seen in Pre Admission Testing Consults Requested none ASA ASA3 Proposed Anesthesia Anesthesia Type: MAC Risk / Benefits Reviewed With: PT / POA / Parent / Guardian, Accepts Plan and Informed Consent Obtained History Surgery Operation Date: 06/14/25 17:35 Proposed Procedures p Esophagogastroduodenoscopy Dr. Sheri Wade MD Height/Weight Height: 5 ft 7 in Weight: 63.3 kg Allergies Allergy/AdvReac Type Severity Reaction Status Date / Time gluten Allergy Unknown Hives Verified 06/13/25 09:46 prednisone AdvReac Intermediate Nausea,vomiting Verified 06/13/25 09:46 and diarrhea Medications Home Medications Medication Instructions Recorded Confirmed Last Taken cholecalciferol (vitamin D3) 125 125 mcg PO QAM 01/24/25 06/13/25 2 Weeks Ago mcg (5,000 unit) tablet (Vitamin ~05/30/25 D3) folic acid 1 mg tablet 1 mg PO QAM #30 tabs 01/27/25 06/13/25 2 Weeks Ago ~05/30/25 thiamine HCl (vitamin B1) 100 mg 100 mg PO QAM #30 tabs 01/27/25 06/13/25 2 Weeks Ago tablet ~05/30/25 magnesium oxide 400 mg (241.3 mg 400 mg PO QAM #30 tabs 02/07/25 06/13/25 2 Weeks Ago magnesium) tablet ~05/30/25 potassium chloride 20 mEq 40 meq PO QAM 02/23/25 06/13/25 2 Weeks Ago tablet,extended release(part/cryst) ~05/30/25 Active Medications Generic Name Dose Route Start Last Admin Trade Name Elías PRN Reason Stop Dose Admin Folic Acid 1 mg 06/14/25 09:00 06/14/25 09:22 Folic Acid 1 Mg Tab PO 07/14/25 08:59 1 mg QAM ZITA Administration Pantoprazole Sodium 40 mg/ 100 mls @ 20 mls/hr 06/13/25 08:45 06/14/25 12:25 Dextrose IV 07/13/25 08:44 0 mg/hr Q5H ZITA 0 mls/hr Infusion 8 MG/HR Octreotide Acetate 500 mcg/ 100.5 mls @ 10.05 mls/hr 06/13/25 13:21 06/14/25 12:25 Sodium Chloride IV 07/13/25 13:20 0 mcg/hr .Q10H ZITA 0 mls/hr Infusion 50 MCG/HR Ceftriaxone Sodium 2,000 mg in 50 mls @ 100 mls/hr 06/14/25 08:00 06/14/25 10:11 Rocephin IV 06/24/25 07:59 Infused Q24H ZITA Infusion Miscellaneous 1 each 06/14/25 08:59 06/14/25 09:22 Remove Nicoderm Patch N/A 07/14/25 08:58 1 each [id number]@[id number] ZITA Administration Nicotine 1 patch 06/14/25 10:30 06/14/25 10:49 Nicotine 7 Mg/24 Hr Tdsy TD 07/14/25 10:29 1 patch QAM ZITA Administration Thiamine HCl 100 mg 06/14/25 09:00 06/14/25 09:22 Thiamine Hcl 100 Mg Tab PO 07/14/25 08:59 100 mg QAM ZITA Administration Past Medical History Medical History Hematemesis Portal hypertensive gastropathy Syncope Alcoholic hepatitis Hyperbilirubinemia Prolonged QT interval Alcoholism, chronic Hypomagnesemia Hypokalemia Acute upper gastrointestinal bleeding Hyponatremia Celiac disease Tobacco use Past Family History Family History Other Prostate cancer Stroke Past Surgical History Surgical History H/O eye surgery Social History Smoking Status: Current every day smoker tobacco type: cigarettes Smoking cigarettes per day: 1 pack/day Do You Dip or Chew Tobacco: No Hx Alcohol Use: Yes Alcohol type: hard liquor alcohol intake frequency: other Alcohol Intake Frequency Comment: 5oz/ vodka day Hx Substance Use: No substance use type: does not use Review of Systems ROS Unobtainable: All systems reviewed & are unremarkable except as noted in HPI & below Physical Exam Vital Signs Last Vital Signs Temp 36.7 C 06/14/25 10:46 Pulse 74 06/14/25 10:46 Resp 16 06/14/25 10:46 BP 112/64 06/14/25 10:46 Pulse Ox 90 06/14/25 10:46 O2 Del Method Room Air 06/14/25 10:46 O2 Flow Rate 0 06/13/25 08:11 Constitutional WD/WN, vitals as above no acute distress Eyes PERRL, conjunctivae normal, anicteric sclerae ENMT external ear and nose normal, oropharynx normal Mouth: + dental restorations; no dentition abnormality Thyromental Distance: > or= 3.5 Finger Breadths Mallampati Class: II Neck trachea midline, no thyromegaly normal visual inspection Respiratory normal respiratory effort, lungs clear to auscultation normal respiratory effort; no respiratory distress Auscultation: lungs clear to auscultation bilaterally Cardiovascular RRR, no murmur, no edema Rate/Rhythm: regular rate and regular rhythm Musculoskeletal Head/Neck/Chest: normocephalic and head atraumatic Spine: normal cervical ROM and no pain with cervical ROM Extremities: extremities normal to inspection and strength 5/5 throughout; full ROM of extremities Skin no rashes, warm and dry Psychiatric A+Ox3, euthymic affect Orientation: alert and oriented x 3 Testing Laboratory Results 06/14/25 13:00 06/14/25 06:38 PT 15.1 Seconds (9.0-12.0) H 06/13/25 08:23 INR 1.4 (0.9-1.1) H 06/13/25 08:23 APTT 29 Seconds (21-31) 06/13/25 08:23 Blood Type A Positive 06/13/25 08:39 Antibody Screen NEGATIVE 06/13/25 08:39
--- NOTE | 2025-06-14 14:37 | GI REPORT ---
[facility] Patient: TRENT ORJO : 1965 Sex at : Female Age: 59 Years Procedure: Upper GI endoscopy Date: 06/14/2025 Attending Physician: Umer Wade MD Referring MD: Referred Self Indications: - Suspected upper gastrointestinal bleeding Medications: - Monitored Anesthesia Care Complications: - No immediate complications. Procedure: - Prior to the procedure, a History and Physical was performed, and patient medications and allergies were reviewed. The patient's tolerance of previous anesthesia was also reviewed. The risks and benefits of the procedure and the sedation options and risks were discussed with the patient. All questions were answered, and informed consent was obtained. [Anticoagulant Agents] [Days Prior to Procedure]. [ASA Grade]. After reviewing the risks and benefits, the patient was deemed in satisfactory condition to undergo the procedure. - The egd scope was introduced through the mouth and advanced to the second part of the duodenum. - The upper GI endoscopy was accomplished without difficulty. - The patient tolerated the procedure well. Findings: - No significant varices were found in the esophagus. Status post EVB. - Mild portal hypertensive gastropathy was found in the entire examined stomach. - The examined duodenum was normal. Impression: - Obliterated esophageal varices. Prior EVBL. - Portal hypertensive gastropathy. - Normal examined duodenum. - No specimens collected. Recommendation: - Resume previous diet. - Patient has a contact number available for emergencies. The signs and symptoms of potential delayed complications were discussed with the patient. Return to normal activities tomorrow. Written discharge instructions were provided to the patient. Procedure Code(s): - 16008, Esophagogastroduodenoscopy, flexible, transoral; diagnostic, including collection of specimen(s) by brushing or washing, when performed (separate procedure) Diagnosis Code(s): - I85.00, Esophageal varices without bleeding - K76.6, Portal hypertension - K31.89, Other diseases of stomach and duodenum CPT(R) - 2023 copyright [employer]. All Rights Reserved. The CPT codes, CCI edits and ICD codes generated are intended as suggestions and were generated based on input data. These codes are preliminary and upon special investigator review may be revised to meet current compliance and payer requirements. The provider is responsible for the final determination of appropriate codes, and modifiers. Umer Wade MD This document has been electronically signed. Note Initiated:06/14/2025 Note Completed:06/14/2025 2:36 PM \\[email or web address]\Results\[email or web address]\[id number]
--- NOTE | 2025-06-14 15:27 | Anesthesiology Progress Note ---
Date of Service June 14, 2025 Anesthesia Post Procedure Vital Signs Vital Signs: Temp Pulse Pulse Pulse Resp BP BP 06/14/25 15:13 69 18 111/66 06/14/25 14:56 73 18 110/63 06/14/25 14:41 82 18 114/64 06/14/25 14:10 37 C 72 16 124/71 06/14/25 10:46 36.7 C 74 16 112/64 06/14/25 07:36 71 06/14/25 06:58 36.7 C 70 16 105/68 06/14/25 03:17 36.9 C 69 18 105/68 06/13/25 23:43 75 06/13/25 23:35 78 18 103/67 06/13/25 19:29 37.3 C 73 18 133/75 06/13/25 15:43 37.2 C 78 18 135/85 Pulse Ox O2 Del Method O2 Flow Rate 06/14/25 15:13 91 Room Air 06/14/25 14:56 94 Room Air 06/14/25 14:41 96 Oxymask 5 06/14/25 14:10 94 Room Air 06/14/25 10:46 90 Room Air 06/14/25 07:36 06/14/25 06:58 93 Room Air 06/14/25 03:17 91 Room Air 06/13/25 23:43 06/13/25 23:35 96 Room Air 06/13/25 19:29 94 Room Air 06/13/25 15:43 92 Room Air Transfer of Care Handoff Completed per policy Notes Mental Status: alert / awake / arousable and participated in evaluation Patient Amnestic to Procedure: Yes Nausea / Vomiting: adequately controlled Pain: adequately controlled Airway Patency, RR, SpO2: stable & adequate BP & HR: stable & adequate Hydration State: stable & adequate Anesthetic Complications: no major complications apparent and Pt Satisfied with anesthetic care
[2025-06-14] MEDS: PROPOFOL IV EMULSION 10 MG/ML 20 ML VIAL IV ONE (15:41)
[2025-06-14] MEDS: LIDOCAINE 2% 2 ML VIAL/AMP(20MG/ML) INFIL ONE (15:41)
[2025-06-14] MEDS: GABAPENTIN 600 MG TAB PO SCH (16:13)
[2025-06-14 19:43] LABS: Hematocrit (blood only) 27.2 % (37.0-47.0); Hemoglobin 8.8 g/dl (12.0-16.0)
[2025-06-15 07:52] LABS: Hematocrit (blood only) 26.9 % (37.0-47.0); Hemoglobin 8.8 g/dl (12.0-16.0); Mean Corpuscular Hemoglobin 29.0 pg (25.0-34.0); Mean Corpuscular Volume 88.8 fL (80.0-100.0); Platelet Count 99 K/uL (130-400); RDW Standard Deviation 58.2 fL (36.4-46.3); Red Blood Count 3.03 M/uL (4.20-5.40); White Blood Count 4.22 K/ul (4.8-10.8)
[2025-06-15 08:09] LABS: Alanine Aminotransferase 14.0 U/L (7-52); Albumin Globulin Ratio 1.1 (0.9-2); Alkaline Phosphatase 97.0 U/L (34-104); Anion Gap 5.0 (3-11); Bilirubin,Total 1.3 mg/dl (0.2-1.0); Blood Urea Nitrogen 10.0 mg/dl (6-23); Calcium 8.3 mg/dl (8.6-10.3); Carbon Dioxide 30.0 mmol/L (21-32); Chloride 101.0 mmol/L (98-107); Creatinine Clr Calc Pharmacy 81.9 ml/min; Globulin 2.9 gm/dl (2.5-4.0); Glucose 116.0 mg/dl (70-99(Fasting)); Magnesium 1.5 mg/dl (1.7-2.4); Potassium 3.7 mmol/L (3.5-5.1); Sodium 136.0 mmol/L (136-145); Total Protein 6.0 gm/dl (6.0-8.3)
--- NOTE | 2025-06-15 09:24 | Gastroenterology Progress Note ---
Date of Service June 15, 2025 Assessment & Plan (1) Melena: (2) Cirrhosis of liver: (3) Hematemesis: Plan Patient is feeling well and no further signs of GI bleeding. hgb stable. she is requesting discharge to home. She seems stable from a GI standpoint. Case was discussed with Dr. Wade. GI will sign off. Admission and Anticipated Discharge Date Admission Date: June 13, 2025 Supervising Physician Co-Signing Physician Notes I saw and examined this patient with our nurse practitioner and agree with her assessment and plan. Patient was discharged prior to my ability to see her. Will follow-up with GI as an outpatient as needed. Subjective Patient is feeling well. no further nausea, vomiting. hgb stable at 8.8 today. no further bowel movements. EGD 06/14/25 - Obliterated esophageal varices. Prior EVBL. - Portal hypertensive gastropathy. - Normal examined duodenum. - No specimens collected. Review of Systems Review of Systems: All systems reviewed & are unremarkable except as noted in HPI & below Physical Exam Constitutional: WD/WN, vitals as above Respiratory: normal respiratory effort, lungs clear to auscultation Cardiovascular: Rate/Rhythm: regular rate and regular rhythm Gastrointestinal (Abdomen): normal bowel sounds, soft, nontender, no hepatosplenomegaly Psychiatric: Orientation: alert and oriented x 3 Affect: euthymic affect Results & Data Results & Data Vital Signs (Past 12 Hours) Vital Signs Temp Pulse Pulse Resp BP Pulse Ox O2 Del Method 06/15/25 07:31 98.1 F 76 18 95/62 L Room Air 06/15/25 07:22 83 06/15/25 03:35 98.4 F 81 18 110/68 89 L Room Air 06/14/25 23:33 98.2 F 79 18 160/69 H 91 Room Air 06/14/25 23:17 81 Coding Level of Care Code 28489 SUB INP/OBS CARE 12/10MIN Diagnoses Melena K92.1 Cirrhosis of liver K74.60 Hematemesis K92.0
[2025-06-15] MEDS: REMOVE NICODERM PATCH SCH (09:37)
[2025-06-15 12:10] VITALS: RESP 16; TEMP 98.6; O2SAT 91
--- NOTE | 2025-06-15 13:40 | Discharge Summary ---
Date of Service June 15, 2025 Admission HPI Per Admitting Provider This is a 59-year-old female who has a significant past medical history of alcoholic cirrhosis with ascites, esophageal varices, portal hypertensive gastropathy, HTN, celiac disease, GERD with esophagitis, osteopenia and tobacco use disorder who presents to ED secondary to melena and hematochezia x 1 day. is at bedside who also helps elicit hx. At approximately 3 AM this morning she developed diarrhea. She had several episodes for which she reports they were green in color. She denies any latia abdominal pain with the diarrhea. She reports prior to the first episode she had full body cramps but that has since subsided. No known sick contacts. SHe didn't eat anything abnormal or different from . About an hour prior to arrival she also started vomiting that was coffee-ground in nature. Because of the coffee ground emesis she called EMS. She has never had anything like this before. She was last hospitalized here January 2025 2/2 decompensated cirrhosis. Her Primary healthcare financial analyst is Dr. Gallego with [facility]. She denies any recent illness, f/c/s, chest pain, sob, edema, uri sx, cough,abd bloating, dysuria, increased urg/freq with urination or hematuria. Until last night her appetite had been normal. She actually stopped taking all her medications including vitamins to give herself a break. She is drinking 5oz of vokda daily, because she can only tolerate so much water. She does watch her sodium and fluid intake. She feels her cirrhosis is managed at this point. Last EGD was 01/2025 which revealed grade 2 esophageal varices found in the lower third of esophagus medium in size, severe portal hypertensive gastropathy found in the entire stomach with slight oozing, 2 bands were successfully placed to complete eradication and deflation of the varices. She has a venous duplex for portal vein in February was was unremarkable for arterial and venous flow. In ED patient remained hemodynamically stable. Notable lab abnormalities include H&H 11.9 and 36.1, INR 1.4, potassium 3.3, total bili 1.3, AST 59, alk phos 150 and stool occult blood positive. She was started on IV Protonix, octreotide, ceftriaxone and received IV fluids. Admission Exam Per Admitting Provider Constitutional: WD/WN, vitals as above, NAD, sitting up in bed, pleasant, conversing easily Head: Normocephalic, Atraumatic Eyes: conjunctivae normal, anicteric sclerae ENMT: external ear and nose normal, oropharynx normal Neck: trachea midline, no thyromegaly normal visual inspection Respiratory: normal respiratory effort, lungs clear to auscultation, no wheeze, rales, rhonchi. Cardiovascular: RRR, no murmur, no edema Vessels: no JVD or carotid bruit Chest: normal inspection of chest Abdomen: normal bowel sounds, soft, nontender, no hepatosplenomegaly Musculoskeletal: no cyanosis or clubbing, arom x 4 Skin: no rashes, warm and dry normal turgor Neurologic: no face palsy, no dysarthria CN's II-XI intact bilaterally and moves all extremities Psychiatric: A+Ox3, euthymic affect Principal Diagnosis Nausea, diarrhea (melena), GI bleed, anemia Discharge Exam Constitutional: WD/WN, adult F in NAD Head: Normocephalic, Atraumatic Eyes: conjunctivae normal, anicteric sclerae ENMT: external ear and nose normal Neck: normal visual inspection Respiratory: normal respiratory effort, lungs clear to auscultation, no wheeze, rales, rhonchi. Cardiovascular: RRR, no murmur, no edema Chest: normal inspection of chest Abdomen: normal bowel sounds, soft, nontender Musculoskeletal: no LE edema, moves extremities Skin: no rashes, warm and dry normal turgor Neurologic: no face palsy, no dysarthria, answers appropriately, moves all extremities Psychiatric: A+Ox3, euthymic affect Discharge Data Allergies Allergy/AdvReac Type Severity Reaction Status Date / Time gluten Allergy Unknown Hives Verified 06/13/25 09:46 prednisone AdvReac Intermediate Nausea,vomiting Verified 06/13/25 09:46 and diarrhea Consultations 06/13/25 09:41 Consult Gastroenterology Stat 06/13/25 10:05 ED Decision to Admit Stat Procedures Performed Operation Date: 06/14/25 17:35 Actual Procedures p Esophagogastroduodenoscopy - Umer Wade MD Hospital Course (1) Acute upper gastrointestinal bleeding: (2) Cirrhosis of liver: (3) Hematemesis: (4) Portal hypertensive gastropathy: (5) Alcoholism, chronic: Plan This is a 59-year-old female who has a significant past medical history of alcoholic cirrhosis with ascites, esophageal varices, portal hypertensive gastro briana, HTN, celiac disease, GERD with esophagitis, osteopenia and tobacco use disorder who presents to ED secondary to melena and hematochezia x 1 day. Coffee ground emesis Possible acute UGIB Portal HTN Gastropathy Esophageal varices grade II, banded in January Alcoholic Cirrhosis admitted to [facility] tele Pt started on Octreotide gtt and PPI gtt in ED, will continue Continue 2g IV Rocephin daily for SBP ppx Type and cross, pRBC on hold, trend h/h, transfuse if hgb < 7 or pt unstable Blood consent was obtained GI consulted - now s/p EGD Findings: - No significant varices were found in the esophagus. Status post EVB. - Mild portal hypertensive gastropathy was found in the entire examined stomach. - The examined duodenum was normal. Impression: - Obliterated esophageal varices. Prior EVBL. - Portal hypertensive gastropathy. - Normal examined duodenum. - No specimens collected. Recommendation: - Resume previous diet. - Patient has a contact number available for emergencies. The signs and symptoms of potential delayed complications were discussed with the patient. Return to normal activities tomorrow. Written discharge instructions were provided to the patient. Encourage EOTH Cessation Discussed with GI - ok to stop IV PPI, and switch to PO. ok to stop octreotide and abx. Pt wishes to be discharged home, she is feeling well. Diet advanced and pt tolerating. No more nausea/v/d. Hypokalemia, Hypomagnesemia replace and monitor Chronic Alcoholism drinking 5oz vodka/tonic water daily AWSS protocol, prn IV ativan, gabapentin protocol, thiamine, FA No symptoms of alcohol withdrawal Tobacco abuse: encourage cessation, 1ppd, nicotine patch ordered Total Time Total Time Spent Total Time Spent (In Minutes): 40 Discharge Plan Discharge Items Patient Disposition: Home - Self-Care Reason For Visit: GIB Discharge Diagnosis: Nausea, diarrhea (melena), GI bleed, anemia Condition on Discharge: Good Activity: Per Instructions section Non-emergency contact: Primary Care Provider and Specialist Call non-emergency contact if: you have any medication questions and your symptoms worsen Follow-up/Referrals: Misael Vail MD [Primary Care Provider] - (Date & Time 06/22/2025 9:40 AM Provider: Yusef Velez CRNP [facility] Diet: Regular Addtl Attending Provider Instructions: 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 Take pantoprazole 40 mg twice a day. Continue your other medications. Make sure to stay well hydrated. Strongly recommend to avoid drinking alcohol. Pending Studies at Discharge: No Stand-Alone Forms: My [facility] [employer], Smoking Cessation Medications and DC Order Prescriptions: New pantoprazole 40 mg Tablet,Delayed Release (Dr/Ec) 40 mg PO BID Qty: 60 0RF Continued magnesium oxide 400 mg (241.3 mg magnesium) Tablet 400 mg PO QAM Qty: 30 0RF Patient Comments: Pt is currently holding this medication, doesn't plan to start back until 06/16/25. States that they stop taking them from time to time just to reset their body. potassium chloride 20 mEq tablet,ER particles/crystals 40 meq PO QAM Patient Comments: Pt is currently holding this medication, doesn't plan to start back until 06/16/25. States that they stop taking them from time to time just to reset their body. cholecalciferol (vitamin D3) [Vitamin D3] 125 mcg (5,000 unit) Tablet 125 mcg PO QAM Patient Comments: Pt is currently holding this medication, doesn't plan to start back until 06/16/25. States that they stop taking them from time to time just to reset their body. thiamine HCl (vitamin B1) 100 mg Tablet 100 mg PO QAM Qty: 30 0RF Patient Comments: Pt is currently holding this medication, doesn't plan to start back until 06/16/25. States that they stop taking them from time to time just to reset their body. folic acid 1 mg Tablet 1 mg PO QAM Qty: 30 0RF Patient Comments: Pt is currently holding this medication, doesn't plan to start back until 06/16/25. States that they stop taking them from time to time just to reset their body. Discharge Orders: Discharge Order (Routine); Ordered 06/15/25 Ordered By: Ki Boyle Admission Data Admit Date/Time: 06/13/25 10:05 Attending Provider: Ki Boyle Admit Provider: Des Zimmerman Primary Care Provider: Misael Vail Other Providers: Umer Wade I; Des Zimmerman Other Interventions: Discharge Summary Assessment (RN) Last Done: 06/14/25 15:19
[2025-06-15 14:11] VITALS: BP 133/75; PULSE 78
[2025-06-15] MEDS ORDERED: GABAPENTIN 600 MG TAB PO SCH (18:00)
--- NOTE | 2025-06-16 05:18 | Electrocardiogram Report ---
Test Reason : Blood Pressure : */* mmHG Vent. Rate : 110 BPM Atrial Rate : 110 BPM P-R Int : 156 ms QRS Dur : 70 ms QT Int : 352 ms P-R-T Axes : -19 -7 -42 degrees QTcB Int : 476 ms Sinus tachycardia Low voltage QRS Cannot rule out Inferior infarct , age undetermined Nonspecific ST abnormality Abnormal ECG When compared with ECG of 23-Feb-2025 21:19, Vent. rate has increased by 39 bpm T wave inversion now evident in Inferior leads Confirmed by Aman Perez ([id number]) on 06/16/2025 5:17:51 AM Referred By: REFERRED SELF Confirmed By: Aman Perez
[2025-06-17] MEDS ORDERED: GABAPENTIN 600 MG TAB PO SCH (06:00)
== END 2025-06-15 15:03 | disposition home or self-care (01) | DRG 379 ==
LOC: ED 08:07 → SUATTDRO 10:05 → 2N 10:05

== ENCOUNTER 2025-08-23 07:11 | Inpatient (IN) ==
--- NOTE | 2025-08-23 07:31 | Emergency Department Note ---
Impression & Plan Acute hyponatremia, Jaundice, Alcohol use, Abdominal ascites, Cirrhosis of liver ED Provider Note NAME: TRENT ROJO AGE: 60 SEX: F : 1965 ARRIVES VIA: Walk-In INFORMANT: Patient ED PROVIDER(S): Rafi Gregory DO CHIEF COMPLAINT: abdominal pain HPI: Patient is a 60-year-old female with a past medical history of alcohol use and cirrhosis of the liver who presents to the ER for nausea, vomiting, and diarrhea. She admits to abdominal distention which has been occurring over the past couple days. She has had a paracentesis once before per the who provides additional history. She notes that her belly feels tight. She has not been urinating much. She notes that her eyes are turning yellow. She notes that she only drinks about 3 times a week and the liver failure secondary to antibiotics that she received previously. ADDITIONAL HISTORY OBTAINED: Per HPI Chronic Medical/Social Conditions Affecting Care: Per HPI PAST MEDICAL HISTORY:See Below PAST SURGICAL HISTORY:See Below FAMILY HISTORY:See Below SOCIAL HISTORY:See Below HOME MEDICATIONS:See Below ALLERGIES:See Below VITALS:See Below PHYSICAL EXAMINATION: GENERAL: Sitting up in bed, alert, disheveled, chronically ill-appearing EYE EXAM: normal conjunctiva. PERRL and EOM's grossly intact. OROPHARYNX: no exudate, no erythema, lips, buccal mucosa, and tongue normal and mucous membranes are moist NECK: supple, no nuchal rigidity, no adenopathy, non-tender LUNGS: Clear to auscultation. Normal chest wall mechanics HEART: no murmurs, S1 normal and S2 normal ABDOMEN: abdomen soft, slightly distended, no rebound or guarding UPPER EXTREMITIES: upper extremities are grossly normal. LOWER EXTREMITIES: No pitting edema. NEURO EXAM: Normal sensorium, cranial nerves II-XII grossly intact, normal speech, no gross weakness of arms, no gross weakness of legs. MEDICAL DECISION MAKING: Patient is a 60-year-old female with a past medical history of alcoholic cirrhosis who presents to the ER who still drinking for the above-stated complaint. IV was established and blood work was obtained. External records were reviewed from GI consult on 06/13/2025 patient has a history of acute liver disease secondary to alcohol abuse and a GI bleed with esophageal varices. Labs showed no significant leukocytosis and a mild anemia 9.7. BMP with a hyponatremia at 125 and hypokalemia 2.9. LFTs with an AST of 211. T. bili 4.5. Mag at 1.2. UA was clean. Chest x-ray does suggest a right lower lobe infiltrate. Patient was given IV Zosyn. Alcohol was elevated at 170. She was also given IV fluids Zofran and morphine. Discussed case with the hospitalist for further evaluation management treatment. Consults/Care Managements Discussions: Per MDM Triage Nursing notes reviewed. Limited review of prior medical records performed Vital Signs: reviewed and remarkable for tachy Differential diagnosis: Differential diagnoses includes but is not limited to gastritis, peptic ulcer disease, GERD, gallbladder disease, pancreatitis, small bowel obstruction, appendicitis, diverticulitis, hernia, urinary tract infection, torsion, [/ectopic (if female)], perforation, trauma, infectious. ER treatment provided: See below Diagnostics interpreted by me include EKG and cardiac monitoring as listed below: -Cardiac Monitoring: An order was placed for continuous cardiac monitoring. The monitor shows a rate of 90 with sinus rhythm. -ECG: none -Laboratory studies:Interpreted by me as stated above in MDM and shown below. Imaging studies: Xrays: As interpreted by me: Portable AP upright 1 view of the chest shows right lower lobe infiltrate CTs show: CT abdomen pelvis as described above Procedures: None Critical Care: None Past Med/Surg History Problem List (Updated 08/23/25 @ 12:13 by Rafi Gregory DO) Acute hyponatremia (Acute) Hypocalcemia Pneumonia Abdominal pain Decompensated cirrhosis Melena Cirrhosis of liver (Acute) Acute hyponatremia (Acute) Abdominal ascites (Acute) Alcohol use (Acute) Encounter for pre-operative examination Hypotension Acute upper gastrointestinal bleeding (Acute) Hyperbilirubinemia (Acute) Abnormal urinalysis (Acute) Lactic acidosis (Acute) Transaminitis (Acute) Jaundice (Acute) Medical History Hematemesis Portal hypertensive gastropathy Syncope Alcoholic hepatitis Hyperbilirubinemia Prolonged QT interval Alcoholism, chronic Hypomagnesemia Hypokalemia Acute upper gastrointestinal bleeding Hyponatremia Celiac disease Tobacco use Surgical History H/O eye surgery Family History (Updated 08/23/25 @ 10:38 by Mehdi Vidales MD) Father , in his 80s Prostate cancer Mother Alcohol abuse Other Stroke Social History (Updated 08/23/25 @ 10:38 by Mehdi Vidales MD) Smoking Status: Current every day smoker Tobacco Type: Cigarettes Cigarettes Per Day: 1 pack/day; Second Hand Exposure: Yes; Do You Dip or Chew Tobacco: No; Hx Alcohol Use: Yes Alcohol type: hard liquor Alcohol type Comment: h/o heavy vodka intake, at least 2-3 ounces/day Hx Substance Use: No Preferred Language: Iraqi Communication Ability: Effective Disability Liaison Officer Required: No Beliefs That Will Affect Care: None marital status: Single Current Living Situation: Spouse Current Living Situation Comment: [place] - current occupational status: unemployed current occupation: previously worked for [employer] How many Children do You have: 1 Feels Safe at Home: Yes Assistive Devices: None Allergies Allergies Allergy/AdvReac Type Severity Reaction Status Date / Time gluten Allergy Unknown Hives Verified 06/13/25 09:46 prednisone AdvReac Intermediate Nausea,vomiting Verified 06/13/25 09:46 and diarrhea Home Meds Home Medications Medication Instructions Recorded Confirmed potassium chloride 20 mEq 40 meq PO .EVERY COUPLE DAYS 02/23/25 08/23/25 tablet,extended release(part/cryst) magnesium oxide 400 mg (241.3 mg 400 mg PO .EVERY COUPLE DAYS 08/23/25 08/23/25 magnesium) tablet niacin 50 mg tablet 0 mg PO DAILY 08/23/25 08/23/25 pyridoxine (vitamin B6) 0 mg PO QAM 08/23/25 08/23/25 thiamine HCl (vitamin B1) 100 mg 100 mg PO .Q OTHER DAY 08/23/25 08/23/25 tablet vitamin D3-vitamin K2 0 mg PO DAILY 08/23/25 08/23/25 Previous Rx's Medication Instructions Recorded folic acid 1 mg tablet 1 mg PO QAM #30 tabs 01/27/25 pantoprazole 40 mg tablet,delayed 40 mg PO BID #60 tabs 06/15/25 release Results & Data (ED) Vital Signs Vital Signs - 24 hr 08/23/25 07:20 08/23/25 07:55 08/23/25 08:00 Temperature 36.6 C Temperature Source Skin Pulse Rate 94 H 83 Pulse Rate [Apical] 88 Respiratory Rate 20 18 Respiratory Effort / Characteristics Non-Labored Spontaneous Respiratory Depth Normal Respiratory Pattern Regular Blood Pressure 117/72 Blood Pressure [Right Arm] 125/75 Blood Pressure Mean 87 Blood Pressure Mean [Right Arm] 91 Blood Pressure Position [Right Arm] Semi-fowlers Pulse Oximetry 97 94 Oxygen Delivery Method Room Air Room Air Oxygen Flow Rate Sepsis Recent Fever Within 48 Hours No Sepsis New/Unexplained Change in Mental Status N/A Sepsis Action Taken by Nursing No Action Required 08/23/25 08:00 08/23/25 09:00 Temperature Temperature Source Pulse Rate 88 Pulse Rate [Apical] 84 Respiratory Rate 18 16 Respiratory Effort / Characteristics Respiratory Depth Respiratory Pattern Blood Pressure Blood Pressure [Right Arm] 116/70 Blood Pressure Mean Blood Pressure Mean [Right Arm] 85 Blood Pressure Position [Right Arm] Pulse Oximetry 94 98 Oxygen Delivery Method Room Air Nasal Cannula Oxygen Flow Rate 3 Sepsis Recent Fever Within 48 Hours Sepsis New/Unexplained Change in Mental Status Sepsis Action Taken by Nursing Laboratory Data 08/23/25 07:50 08/23/25 07:50 Lab Results 08/23/25 08/23/25 08/23/25 Range/Units 07:50 08:03 09:20 WBC 6.45 (4.8-10.8) K/ul RBC 3.75 L (4.20-5.40) M/uL Hgb 9.7 L (12.0-16.0) g/dl POC Hgb 10.9 L (12.0-16.0) g/dl Hct 28.8 L (37.0-47.0) % POC Hct 32 L (37-47) % MCV 76.8 L (80.0-100.0) fL MCH 25.9 (25.0-34.0) pg MCHC 33.7 (32.0-36.0) g/dL RDW Std Deviation 56.1 H (36.4-46.3) fL RDW Coeff of Car 20.0 H (11.5-14.5) % Plt Count 139 (130-400) K/uL MPV 11.1 (9.4-12.4) fL Immature Gran % (Auto) 0.9 % Neut % (Auto) 71.0 % Lymph % (Auto) 14.3 % Hudson % (Auto) 10.7 % Eos % (Auto) 2.3 % Baso % (Auto) 0.8 % Neut # (Auto) 4.58 (1.40-6.50) K/uL Lymph # (Auto) 0.92 L (1.20-3.40) K/uL Hudson # (Auto) 0.69 H (0.11-0.59) K/uL Eos # (Auto) 0.15 (0.00-0.50) K/uL Baso # (Auto) 0.05 (0.00-0.20) K/uL Immature Gran # (Auto) 0.06 (0.01-0.20) K/uL PT 15.5 H (9.0-12.0) Seconds INR 1.5 H (0.9-1.1) POC Sodium 126 L (135-144) mmol/L Sodium 125 L (136-145) mmol/L POC Potassium 2.8 L (3.3-5.0) mmol/L Potassium 2.9 L (3.5-5.1) mmol/L POC Chloride 84 L (101-112) mmol/L Chloride 84 L (98-107) mmol/L Carbon Dioxide 28 (21-32) mmol/L POC Total CO2 26 (24-31) mmol/L Anion Gap 13 H (3-11) POC Anion Gap 20.0 (16-25) mmol/L POC BUN < 3 L (7-18) mg/dl BUN 4 L (6-23) mg/dl Creatinine 0.64 (0.6-1.2) mg/dl POC Creatinine 0.9 (0.6-1.3) mg/dl Est Cr Clr Drug Dosing 91.4 ml/min eGFR 100.48 BUN/Creatinine Ratio 6.3 L (10-20) Glucose 97 (70-99(Fasting)) mg/dl POC Glucose (other) 92 (70-99) mg/dl Calcium 8.5 L (8.6-10.3) mg/dl POC Ioniz Calcium Karlo 0.95 L (1.12-1.32) mmol/l Magnesium 1.2 L (1.7-2.4) mg/dl Total Bilirubin 4.5 H (0.2-1.0) mg/dl AST 211 H (13-39) U/L ALT 51 (7-52) U/L Alkaline Phosphatase 273 H (34-104) U/L Total Protein 7.5 (6.0-8.3) gm/dl Albumin 3.7 (3.4-5.0) gm/dl Globulin 3.8 (2.5-4.0) gm/dl Albumin/Globulin Ratio 1.0 (0.9-2) Lipase 58 (11-82) U/L Procalcitonin 0.30 (0-0.5) ng/ml TSH 3.730 (0.300-4.500) uIu/ml Urine Color Yellow Urine Appearance Clear (Clear) Urine pH 6.5 (4.5-7.5) Ur Specific Corning 1.015 (1.000-1.030) Urine Protein Negative (Negative) Urine Glucose (UA) Negative (Negative) Urine Ketones Negative (Negative) Urine Blood Negative (Negative) Urine Nitrite Negative (Negative) Urine Bilirubin Negative (Negative) Urine Urobilinogen Negative (Negative) Ur Leukocyte Esterase Negative (Negative) Urine Comment Fluid Comment Peritoneal Color Peritoneal Appearance Peritoneal WBC (Auto) (0-300) /ul Peritoneal RBC (Auto) /uL Ethyl Alcohol mg/dL 170.9 H (<10.0) mg/dl 08/23/25 Range/Units 10:15 WBC (4.8-10.8) K/ul RBC (4.20-5.40) M/uL Hgb (12.0-16.0) g/dl POC Hgb (12.0-16.0) g/dl Hct (37.0-47.0) % POC Hct (37-47) % MCV (80.0-100.0) fL MCH (25.0-34.0) pg MCHC (32.0-36.0) g/dL RDW Std Deviation (36.4-46.3) fL RDW Coeff of Car (11.5-14.5) % Plt Count (130-400) K/uL MPV (9.4-12.4) fL Immature Gran % (Auto) % Neut % (Auto) % Lymph % (Auto) % Hudson % (Auto) % Eos % (Auto) % Baso % (Auto) % Neut # (Auto) (1.40-6.50) K/uL Lymph # (Auto) (1.20-3.40) K/uL Hudson # (Auto) (0.11-0.59) K/uL Eos # (Auto) (0.00-0.50) K/uL Baso # (Auto) (0.00-0.20) K/uL Immature Gran # (Auto) (0.01-0.20) K/uL PT (9.0-12.0) Seconds INR (0.9-1.1) POC Sodium (135-144) mmol/L Sodium (136-145) mmol/L POC Potassium (3.3-5.0) mmol/L Potassium (3.5-5.1) mmol/L POC Chloride (101-112) mmol/L Chloride (98-107) mmol/L Carbon Dioxide (21-32) mmol/L POC Total CO2 (24-31) mmol/L Anion Gap (3-11) POC Anion Gap (16-25) mmol/L POC BUN (7-18) mg/dl BUN (6-23) mg/dl Creatinine (0.6-1.2) mg/dl POC Creatinine (0.6-1.3) mg/dl Est Cr Clr Drug Dosing ml/min eGFR BUN/Creatinine Ratio (10-20) Glucose (70-99(Fasting)) mg/dl POC Glucose (other) (70-99) mg/dl Calcium (8.6-10.3) mg/dl POC Ioniz Calcium Karlo (1.12-1.32) mmol/l Magnesium (1.7-2.4) mg/dl Total Bilirubin (0.2-1.0) mg/dl AST (13-39) U/L ALT (7-52) U/L Alkaline Phosphatase (34-104) U/L Total Protein (6.0-8.3) gm/dl Albumin (3.4-5.0) gm/dl Globulin (2.5-4.0) gm/dl Albumin/Globulin Ratio (0.9-2) Lipase (11-82) U/L Procalcitonin (0-0.5) ng/ml TSH (0.300-4.500) uIu/ml Urine Color Urine Appearance (Clear) Urine pH (4.5-7.5) Ur Specific Corning (1.000-1.030) Urine Protein (Negative) Urine Glucose (UA) (Negative) Urine Ketones (Negative) Urine Blood (Negative) Urine Nitrite (Negative) Urine Bilirubin (Negative) Urine Urobilinogen (Negative) Ur Leukocyte Esterase (Negative) Urine Comment Fluid Comment Peritoneal Color Yellow Peritoneal Appearance Slightly Hazy Peritoneal WBC (Auto) 185 (0-300) /ul Peritoneal RBC (Auto) < 2000 /uL Ethyl Alcohol mg/dL (<10.0) mg/dl Administered Medications Potassium Chloride (K [place] / Wtr) 10 meq in 100 mls @ 100 mls/hr IV Q1H ZITA Stop: 08/23/25 13:29 Last Admin: 08/23/25 11:35 Dose: 100 mls/hr Documented By: lo Magnesium Sulfate/Dextrose (Magnesium Sulfate / D5w) 1 gm in 100 mls @ 100 mls/hr IV Q30M ZITA Stop: 08/23/25 12:14 Last Admin: 08/23/25 12:05 Dose: 100 mls/hr Documented By: lo Discontinued Medications Sodium Chloride (Nss) 1,000 mls @ 999 mls/hr IV .Q1H1M ONE Stop: 08/23/25 08:31 Last Infusion: 08/23/25 10:44 Dose: Infused Documented By: lo Admin: 08/23/25 08:43 Dose: 999 mls/hr Documented By: lo Calcium Gluconate () 1,000 mg in 60 mls @ 240 mls/hr IV NOW STA Stop: 08/23/25 09:33 Last Infusion: 08/23/25 10:44 Dose: Infused Documented By: lo Admin: 08/23/25 09:49 Dose: 240 mls/hr Documented By: lo Piperacillin Sod/Tazobactam Sod (Zosyn) 4.5 gm in 100 mls @ 200 mls/hr IV NOW ONE; Protocol Stop: 08/23/25 09:50 Last Admin: 08/23/25 12:06 Dose: 200 mls/hr Documented By: lo Folic Acid 1 mg/ Syringe 10 mls @ 5 mls/min IV NOW STA Stop: 08/23/25 09:23 Last Admin: 08/23/25 10:24 Dose: 5 mls/min Documented By: lo Ioversol (Optiray 320 100ml) 94 ml IV ONCE ONE Stop: 08/23/25 08:36 Last Admin: 08/23/25 08:35 Dose: 94 ml Documented By: TRENT Morphine Sulfate (Morphine Sulfate 2 Mg/Ml Carp) 2 mg IV NOW STA Stop: 08/23/25 07:35 Last Admin: 08/23/25 08:21 Dose: 2 mg Documented By: lo Ondansetron HCl (Ondansetron Inj 2 Mg/Ml 2 Ml Vial) 4 mg IV NOW STA Stop: 08/23/25 07:32 Last Admin: 08/23/25 08:14 Dose: 4 mg Documented By: lo Imaging Data Radiologist's Impression: Abdomen/Pelvis CT 08/23/25 07:[address] WITH IV CONTRAST CT DOSE: 1104.73 mGy.cm HISTORY: mid abd pain TECHNIQUE: Multiaxial CT images of the abdomen and pelvis were performed following the IV administration of 90 cc of Optiray, A dose lowering technique was utilized adhering to the principles of ALARA. COMPARISON STUDY: 02/03/2025 FINDINGS: ABDOMEN: There is progressive severe diffuse nodularity at the liver consistent with cirrhosis. The liver is diffusely heterogeneous. There is a 3.4 cm possible lobulated mass which demonstrates increased enhancement compared to the surrounding liver anterior right hepatic lobe series 3 image 94. Stable minimal splenomegaly. There is a moderate amount of diffuse ascites. There are a few stable mildly enlarged vincenzo hepatis lymph nodes, common in the setting of cirrhosis. Pancreas and adrenal glands are unremarkable. Kidneys show no hydronephrosis or calculi. There are scattered atherosclerotic calcifications. No abdominal aortic aneurysm. Pelvis: Uterus and adnexa are grossly unremarkable. Urinary bladder is nondistended. There is mild retained stool. There is mild diffuse wall thickening at the small bowel and colon most prominent at the cecum which could represent enterocolitis or edema from the ascites. No other bowel inflammation or obstruction seen. Osseous structures: There is lumbar degenerative disc disease. No acute osseous findings. IMPRESSION: 1. Progressive severe cirrhosis with moderate ascites. 2. There is a small masslike area of increased enhancement anterior right hepatic lobe. Differential diagnosis includes hepatocellular carcinoma and heterogeneity due to the cirrhosis. 3. Diffuse enterocolitis versus bowel edema due to the ascites. No bowel obstruction. 4. No other acute findings seen. Otherwise as described. ACT 112: Positive. There are findings on this exam that require communication between the performing entity and the patient following Patient Test Result Information Act ([place] Act 112) guidelines. The above report was generated using voice recognition software. It may contain grammatical, syntax or spelling errors. Electronically signed by: Refugio Bro M.D. 08/23/2025 8:57 AM Chest X-Ray 08/23/25 09:01 XR chest 1V portable CLINICAL HISTORY: hypoxic COMPARISON STUDY: 06/13/2025 FINDINGS: Inspiration is shallow. There is mild cardiomegaly with mild pulmonary vascular congestion. There is interval stranding opacity in the lung bases. No pleural effusion or pneumothorax. IMPRESSION: 1. Mild CHF. 2. Mild atelectasis versus early pneumonia in the lung bases. ACT 112: Negative or not required by law. Electronically signed by: Refugio Bro M.D. 08/23/2025 9:26 AM Discharge Plan Visit Data Chief Complaint: Abdominal Pain Stated Complaint: ABD PAIN ED Provider: Rafi Gregory Discharge Problem: Acute hyponatremia, Jaundice, Alcohol use, Abdominal ascites, Cirrhosis of liver Patient Disposition: Admitted As Inpatient Condition: Fair Discharge Instructions Interventions: ED Discharge Assessment Last Done: 08/23/25 11:54 Discharge Problem: Abdominal ascites Qualifiers: Ascites type: other type Qualified Code(s): R18.8 - Other ascites Cirrhosis of liver Qualifiers: Hepatic cirrhosis type: unspecified hepatic cirrhosis Ascites presence: u nspecified Qualified Code(s): K74.60 - Unspecified cirrhosis of liver
[2025-08-23] MEDS: ONDANSETRON INJ 2 MG/ML 2 ML VIAL IV STA (08:14)
[2025-08-23 08:15] LABS: Hematocrit (blood only) 28.8 % (37.0-47.0); Hemoglobin 9.7 g/dl (12.0-16.0); Immature Granulocytes # (auto) 0.06 K/uL (0.01-0.20); Immature Granulocytes % (auto) 0.9 %; Mean Corpuscular Hemoglobin 25.9 pg (25.0-34.0); Mean Corpuscular Volume 76.8 fL (80.0-100.0); Platelet Count 139 K/uL (130-400); RDW Standard Deviation 56.1 fL (36.4-46.3); Red Blood Count 3.75 M/uL (4.20-5.40); White Blood Count 6.45 K/ul (4.8-10.8)
[2025-08-23] MEDS: MoRPHine SULFATE 2 MG/ML CARP IV STA (08:21)
[2025-08-23 08:26] LABS: Albumin Level 3.7 gm/dl (3.4-5.0); Anion Gap 13.0 (3-11); Bilirubin,Total 4.5 mg/dl (0.2-1.0); Calcium 8.5 mg/dl (8.6-10.3); Carbon Dioxide 28.0 mmol/L (21-32); Chloride 84.0 mmol/L (98-107); Potassium 2.9 mmol/L (3.5-5.1); Sodium 125.0 mmol/L (136-145)
[2025-08-23 08:32] LABS: Alanine Aminotransferase 51.0 U/L (7-52); Albumin Globulin Ratio 1.0 (0.9-2); Alkaline Phosphatase 273.0 U/L (34-104); Blood Urea Nitrogen 4.0 mg/dl (6-23); Creatinine Clr Calc Pharmacy 91.4 ml/min; Globulin 3.8 gm/dl (2.5-4.0); Glucose 97.0 mg/dl (70-99(Fasting)); Lipase 58.0 U/L (11-82); Total Protein 7.5 gm/dl (6.0-8.3)
[2025-08-23] MEDS: OPTIRAY 320 100ml IV ONE (08:35)
[2025-08-23] MEDS: SODIUM CHLORIDE 0.9% 1,000 ML IV ONE (08:43)
[2025-08-23 08:44] LABS: INR 1.5 (0.9-1.1); Prothrombin Time 15.5 Seconds (9.0-12.0)
--- NOTE | 2025-08-23 08:58 | CT Scan Report ---
ABDOMEN AND PELVIS CT WITH IV CONTRAST CT DOSE: 1104.73 mGy.cm HISTORY: mid abd pain TECHNIQUE: Multiaxial CT images of the abdomen and pelvis were performed following the IV administrat ion of 90 cc of Optiray, A dose lowering technique was utilized adhering to the principles of ALARA. COMPARISON STUDY: 02/03/2025 FINDINGS: ABDOMEN: There is progressive severe diffuse nodularity at the liver consistent with cirrhosis. The l iver is diffusely heterogeneous. There is a 3.4 cm possible lobulated mass which demonstrates increas ed enhancement compared to the surrounding liver anterior right hepatic lobe series 3 image 94. Stabl e minimal splenomegaly. There is a moderate amount of diffuse ascites. There are a few stable mildly enlarged vincenzo hepatis lymph nodes, common in the setting of cirrhosis. Pancreas and adrenal glands a re unremarkable. Kidneys show no hydronephrosis or calculi. There are scattered atherosclerotic calci fications. No abdominal aortic aneurysm. Pelvis: Uterus and adnexa are grossly unremarkable. Urinary bladder is nondistended. There is mild re tained stool. There is mild diffuse wall thickening at the small bowel and colon most prominent at th e cecum which could represent enterocolitis or edema from the ascites. No other bowel inflammation or obstruction seen. Osseous structures: There is lumbar degenerative disc disease. No acute osseous findings. IMPRESSION: 1. Progressive severe cirrhosis with moderate ascites. 2. There is a small masslike area of increased enhancement anterior right hepatic lobe. Differential diagnosis includes hepatocellular carcinoma and heterogeneity due to the cirrhosis. 3. Diffuse enterocolitis versus bowel edema due to the ascites. No bowel obstruction. 4. No other acute findings seen. Otherwise as described. ACT 112: Positive. There are findings on this exam that require communication between the performing entity and the patient following Patient Test Result Information Act ([place] Act 112) guidelines. The above report was generated using voice recognition software. It may contain grammatical, syntax o r spelling errors. Electronically signed by: Refugio Bro M.D. 08/23/2025 8:57 AM
--- NOTE | 2025-08-23 09:23 | History & Physical Report ---
Date of Service August 23, 2025 Assessment & Plan (1) Decompensated cirrhosis: (2) Pneumonia: (3) Abdominal pain: (4) Hypomagnesemia: (5) Hypokalemia: (6) Hyponatremia: (7) Hypocalcemia: (8) Celiac disease: (9) Tobacco use: (10) Alcoholism, chronic: (11) Abdominal ascites: Plan 60yo female with known cirrhosis 2nd to etoh dependence, tobacco dependence, prior esophageal varices, celiac disease, and admission in May 2025 for GI bleeding presents from home with 3-4 days of worsening abdominal pain & swelling, nausea/vomiting early this am, 2+ weeks of URI symptoms with cough, and poor PO intake x 48 hours. #pneumonia - -at least RLL pneumonia on exam and by way of x-ray today; possible infiltrates on left -she had hospital stay at [facility] <90 days ago thus will cover for HAP / gram negatives -received IV zosyn in ER; change to cefepime; add doxy for atypical coverage -check MRSA swab; if negative defer on MRSA coverage -check COVID/flu/RSV swab #decompensated cirrhosis - -moderate ascites on exam and by way of CT abd/pelvis -I am concerned by her abdominal pain - r/o SBP - thus, obtain IR paracentesis maricruz -diagnostic/therapeutic -defer on diuretics at this time -unfortunately she continues to drink etoh #etoh dependence - -gabapentin taper -AWSS protocol with symptom-triggered ativan PRN -thiamine/folic acid IV -MVI daily -candidate for naltrexone or other in the future? #tobacco dependence - -food counselor to quit -nicoderm patch 21mg/day #hyponatremia - -check TSH - previous levels high -appears total body volume overloaded, but perhaps intra-vascularly dry (little PO intake last 2 days) -did get 1 liter of fluid by ER provider; defer on additional fluids -would recheck BMP later today #hypokalemia, hypomagnesemia, hypocalcemia - -replace with 40meq KCL IV, 4 grams mag sulfate IV, and 1000mg of calcium gluconate IV -plan to repeat labs later today -suspect all due to chronic etoh abuse and poor PO intake #abdominal pain - -r/o SBP - paracentesis urgently -if no SBP the ascites itself can cause pressure/bloating/etc. -can't rule out gastritis from etoh abuse - PPI twice daily IV -no evidence of cholecystitis -no evidence of pancreatitis -patient NOT having diarrhea thus unlikely to have enterocolitis as suggested on CT a/p today #anemia - -chronic -likely multifactorial -MCV is low - at minimum would check Fe studies but consider B12 as well -place on folate supplementation #DVT proph - -if no evidence of any GI bleeding then add heparin SC cautiously in light of elevated INR from cirrhosis, low platelets, etc. updated throughout the admission process History of Present Illness Chief Complaint: nausea, vomiting, abdominal pain, cough, feeling poorly Primary Care Provider: Misael Vail MD 60yo female with known cirrhosis 2nd to etoh dependence, tobacco dependence, prior esophageal varices, celiac disease, and admission in May 2025 for GI bleeding presents from home with 3-4 days of worsening abdominal pain & swelling (she describes it as "inflammation"), inability to eat for about 2 days, feeling cold - but no fevers, cough/congestion for about 2-3 weeks, and nausea/vomiting that started about 1am this morning. About 2 weeks ago she had a right-sided ear infection and was placed on antibiotic drops; she also was given keflex for sinusitis but only took about 5 days of such. She felt she was having side effects from the medicine and called her PCP who advised her to stop it. With respect to her abdominal pain it is mostly in the upper portion of the abdomen. Feels like a "band" (she points to the upper portions of the RUQ and LUQ). Patient continues to drink alcohol - typically vodka. The amount varies from day to day - sometimes 2-3 ounces vodka/day, sometimes double that amount or more. She did drink at least 2-3 ounces of vodka last night. In addition to the above she was having low back pain about 2 weeks ago. This is a chronic issue that periodically flares up. Pain is now improved. Denies any history of delirium tremens, but has had mild etoh withdrawal symptoms (shakes, sweats) in the past. In the ER today she was hypoxic and NC O2 was applied with resolution of the hypoxia. Allergies Allergy/AdvReac Type Severity Reaction Status Date / Time gluten Allergy Unknown Hives Verified 06/13/25 09:46 prednisone AdvReac Intermediate Nausea,vomiting Verified 06/13/25 09:46 and diarrhea Home Medications Medication Instructions Recorded Confirmed Type folic acid 1 mg tablet 1 mg PO QAM #30 tabs 01/27/25 08/23/25 Rx potassium chloride 20 mEq 40 meq PO .EVERY COUPLE DAYS 02/23/25 08/23/25 History tablet,extended release(part/cryst) pantoprazole 40 mg tablet,delayed 40 mg PO BID #60 tabs 06/15/25 08/23/25 Rx release magnesium oxide 400 mg (241.3 mg 400 mg PO .EVERY COUPLE DAYS 08/23/25 08/23/25 History magnesium) tablet niacin 50 mg tablet 0 mg PO DAILY 08/23/25 08/23/25 History pyridoxine (vitamin B6) 0 mg PO QAM 08/23/25 08/23/25 History thiamine HCl (vitamin B1) 100 mg 100 mg PO .Q OTHER DAY 08/23/25 08/23/25 History tablet vitamin D3-vitamin K2 0 mg PO DAILY 08/23/25 08/23/25 History Past Med/Surg History Problem List (Updated 08/23/25 @ 12:13 by Rafi Gregory DO) Acute hyponatremia (Acute) Hypocalcemia Pneumonia Abdominal pain Decompensated cirrhosis Melena Cirrhosis of liver (Acute) Acute hyponatremia (Acute) Abdominal ascites (Acute) Alcohol use (Acute) Encounter for pre-operative examination Hypotension Acute upper gastrointestinal bleeding (Acute) Hyperbilirubinemia (Acute) Abnormal urinalysis (Acute) Lactic acidosis (Acute) Transaminitis (Acute) Jaundice (Acute) Medical History Hematemesis Portal hypertensive gastropathy Syncope Alcoholic hepatitis Hyperbilirubinemia Prolonged QT interval Alcoholism, chronic Hypomagnesemia Hypokalemia Acute upper gastrointestinal bleeding Hyponatremia Celiac disease Tobacco use Surgical History H/O eye surgery Family History (Updated 08/23/25 @ 10:38 by Mehdi Vidales MD) Father , in his 80s Prostate cancer Mother Alcohol abuse Other Stroke Social History (Updated 08/23/25 @ 10:38 by Mehdi Vidales MD) Smoking Status: Current every day smoker Tobacco Type: Cigarettes Cigarettes Per Day: 1 ppd; Second Hand Exposure: Yes; Do You Dip or Chew Tobacco: No; Hx Alcohol Use: Yes Alcohol type: hard liquor Alcohol type Comment: h/o heavy vodka intake, at least 2-3 ounces/day Hx Substance Use: No Preferred Language: German Communication Ability: Effective Teletypesetter Monitor Required: No Beliefs That Will Affect Care: None marital status: Single Current Living Situation: Spouse Current Living Situation Comment: [place] - current occupational status: unemployed current occupation: previously worked for [employer] How many Children do You have: 1 Feels Safe at Home: Yes Safety Concerns: Feels Safe At This Time Assistive Devices: None Review of Systems Review of Systems: gen - no fevers, but has felt cold; poor PO intake last 48 hours eyes - no ocular complaints HENT - no dysphagia; recent R ear pain now resolved; recent URI symptoms - improved CV - no chest pain pulm - ongoing cough, at least 2 weeks in duration; some sputum; no dyspnea GI - upper abd pain; +swelling/ascites; +nausea/emesis; no coffee-ground emesis; no hematemesis; no melena stool; no BRBPR - no dysuria musculo - recent joint pains/myalgias skin - no rash psych - denies depression endo - no diabetes Physical Exam Physical Exam: gen - awake, alert, under numerous covers, NAD, no intoxication eyes - PERRL HENT - MM slightly dry, no lesions; posterior throat erythematous; TMs clear b/l; ear canals clear b/l neck - lymph node lower right neck, no goiter CV - RRR, s1 s2, no murmur lungs - mild rales R base, no wheeze, no increased work of breathing abd - distended with fluid, tender epigastric region/RUQ/LUQ, no caput, spleen tip palpable ext - no edema, pulses 2+ b/l feet neuro - strength 5/5 x 4 exts; DTRs 2+ b/l upper & lower exts; no asterixis or tremors skin - no jaundice psych - a/o x 3 Results & Data Results & Data Vital Signs (Past 12 Hours) Vital Signs Temp Pulse Pulse Resp BP BP Pulse Ox 08/23/25 09:00 84 16 116/70 98 08/23/25 08:00 88 18 94 08/23/25 08:00 88 18 125/75 94 08/23/25 07:55 83 08/23/25 07:20 36.6 C 94 H 20 117/72 97 O2 Del Method O2 Flow Rate 08/23/25 09:00 Nasal Cannula 3 08/23/25 08:00 Room Air 08/23/25 08:00 Room Air 08/23/25 07:55 08/23/25 07:20 Room Air Laboratory Results Laboratory Results - last 24 hr 08/23/25 08/23/25 08/23/25 07:50 08:03 09:20 WBC 6.45 RBC 3.75 L Hgb 9.7 L POC Hgb 10.9 L Hct 28.8 L POC Hct 32 L MCV 76.8 L MCH 25.9 MCHC 33.7 RDW Std Deviation 56.1 H RDW Coeff of Car 20.0 H Plt Count 139 MPV 11.1 Immature Gran % (Auto) 0.9 Neut % (Auto) 71.0 Lymph % (Auto) 14.3 [place] % (Auto) 10.7 Eos % (Auto) 2.3 Baso % (Auto) 0.8 Neut # (Auto) 4.58 Lymph # (Auto) 0.92 L [place] # (Auto) 0.69 H Eos # (Auto) 0.15 Baso # (Auto) 0.05 Immature Gran # (Auto) 0.06 PT 15.5 H INR 1.5 H POC Sodium 126 L Sodium 125 L POC Potassium 2.8 L Potassium 2.9 L POC Chloride 84 L Chloride 84 L Carbon Dioxide 28 POC Total CO2 26 Anion Gap 13 H POC Anion Gap 20.0 POC BUN < 3 L BUN 4 L Creatinine 0.64 POC Creatinine 0.9 Est Cr Clr Drug Dosing 91.4 eGFR 100.48 BUN/Creatinine Ratio 6.3 L Glucose 97 POC Glucose (other) 92 Calcium 8.5 L POC Ioniz Calcium Karlo 0.95 L Magnesium 1.2 L Total Bilirubin 4.5 H AST 211 H ALT 51 Alkaline Phosphatase 273 H Total Protein 7.5 Albumin 3.7 Globulin 3.8 Albumin/Globulin Ratio 1.0 Lipase 58 Procalcitonin 0.30 TSH Pending Urine Color Yellow Urine Appearance Clear Urine pH 6.5 Ur Specific [place] 1.015 Urine Protein Negative Urine Glucose (UA) Negative Urine Ketones Negative Urine Blood Negative Urine Nitrite Negative Urine Bilirubin Negative Urine Urobilinogen Negative Ur Leukocyte Esterase Negative Urine Comment Ethyl Alcohol mg/dL 170.9 H Diagnostic Findings Abdomen/Pelvis CT 08/23/25 07:[address] WITH IV CONTRAST CT DOSE: 1104.73 mGy.cm HISTORY: mid abd pain TECHNIQUE: Multiaxial CT images of the abdomen and pelvis were performed following the IV administration of 90 cc of Optiray, A dose lowering technique was utilized adhering to the principles of ALARA. COMPARISON STUDY: 02/03/2025 FINDINGS: ABDOMEN: There is progressive severe diffuse nodularity at the liver consistent with cirrhosis. The liver is diffusely heterogeneous. There is a 3.4 cm possible lobulated mass which demonstrates increased enhancement compared to the surrounding liver anterior right hepatic lobe series 3 image 94. Stable minimal splenomegaly. There is a moderate amount of diffuse ascites. There are a few stable mildly enlarged vincenzo hepatis lymph nodes, common in the setting of cirrhosis. Pancreas and adrenal glands are unremarkable. Kidneys show no hydronephrosis or calculi. There are scattered atherosclerotic calcifications. No abdominal aortic aneurysm. Pelvis: Uterus and adnexa are grossly unremarkable. Urinary bladder is nondistended. There is mild retained stool. There is mild diffuse wall thickening at the small bowel and colon most prominent at the cecum which could represent enterocolitis or edema from the ascites. No other bowel inflammation or obstruction seen. Osseous structures: There is lumbar degenerative disc disease. No acute osseous findings. IMPRESSION: 1. Progressive severe cirrhosis with moderate ascites. 2. There is a small masslike area of increased enhancement anterior right hepatic lobe. Differential diagnosis includes hepatocellular carcinoma and heterogeneity due to the cirrhosis. 3. Diffuse enterocolitis versus bowel edema due to the ascites. No bowel obstruction. 4. No other acute findings seen. Otherwise as described. ACT 112: Positive. There are findings on this exam that require communication between the performing entity and the patient following Patient Test Result Information Act ([place] Act 112) guidelines. The above report was generated using voice recognition software. It may contain grammatical, syntax or spelling errors. Electronically signed by: Refugio Bro M.D. 08/23/2025 8:57 AM Chest X-Ray 08/23/25 09:01 XR chest 1V portable CLINICAL HISTORY: hypoxic COMPARISON STUDY: 06/13/2025 FINDINGS: Inspiration is shallow. There is mild cardiomegaly with mild pulmonary vascular congestion. There is interval stranding opacity in the lung bases. No pleural effusion or pneumothorax. IMPRESSION: 1. Mild CHF. 2. Mild atelectasis versus early pneumonia in the lung bases. ACT 112: Negative or not required by law. Electronically signed by: Refugio Bro M.D. 08/23/2025 9:26 AM Code Status & VTE Plan Code Status full PG Care Time/CCT Total # of Minutes Spent Total Time Spent with Patient: Total time spent is greater than 50% in coordination of care (as documented) at patient's floor/unit and/or counseling patient: Coding Level of Care Code 69328 INT INP/OBS CARE 3/75MIN Diagnoses Decompensated cirrhosis K72.90; K74.60 Pneumonia J18.9 Abdominal pain R10.9 Hypomagnesemia E83.42 Hypokalemia E87.6 Hyponatremia E87.1 Hypocalcemia E83.51 Celiac disease K90.0 Tobacco use Z72.0 Alcoholism, chronic F10.20 Abdominal ascites R18.8
--- NOTE | 2025-08-23 09:27 | XRay Report ---
XR chest 1V portable CLINICAL HISTORY: hypoxic COMPARISON STUDY: 06/13/2025 FINDINGS: Inspiration is shallow. There is mild cardiomegaly with mild pulmonary vascular congestion. There is interval stranding opacity in the lung bases. No pleural effusion or pneumothorax. IMPRESSION: 1. Mild CHF. 2. Mild atelectasis versus early pneumonia in the lung bases. ACT 112: Negative or not required by law. Electronically signed by: Refugio Bro M.D. 08/23/2025 9:26 AM
[2025-08-23 09:45] LABS: Appearance Urine Clear (Clear); Glucose Urine UA Negative (Negative)
[2025-08-23] MEDS: CALCIUM GLUCONATE 1,000 MG/60 ML BAG IV STA ×2 (09:49→20:55)
[2025-08-23] MEDS: FOLIC ACID 1 MG in SYRINGE 9.8 ML IV STA (10:24)
[2025-08-23 10:35] LABS: Magnesium 1.2 mg/dl (1.7-2.4)
[2025-08-23 10:43] LABS: Thyroid Stimulating Hormone 3.73 uIu/ml (0.300-4.500)
[2025-08-23] MEDS: POTASSIUM CHLORIDE / WTR 10 MEQ/100 ML PLCT IV SCH (11:35)
[2025-08-23] MEDS ORDERED: GABAPENTIN 800MG ALCOHOL WITHDRAWAL LOAD PO STA (11:54)
[2025-08-23] MEDS ORDERED: ONDANSETRON INJ 2 MG/ML 2 ML VIAL IV PRN (11:54)
[2025-08-23] MEDS ORDERED: ACETAMINOPHEN 325 MG TAB PO PRN (11:54)
[2025-08-23] MEDS: MAGNESIUM SULFATE / D5W 1 GM/100 ML BAG IV SCH ×2 (12:05→17:58)
[2025-08-23] MEDS: PIPERACILLIN/TAZOBACTAM 4.5 GM/100 ML BAG IV ONE (12:06)
[2025-08-23 12:07] LABS: Appearance Peritoneal Fluid Slightly Hazy; Color Peritoneal Fluid Yellow; RBC Peritoneal Fluid Auto < 2000 /uL; WBC Peritoneal Fluid Auto 185 /ul (0-300)
[2025-08-23] MEDS: THIAMINE HCL 200 MG in SODIUM CHLORIDE 0.9% 50 ML IV STA (12:35)
--- NOTE | 2025-08-23 12:39 | Ultrasound Report ---
ULTRASOUND-GUIDED PARACENTESIS CLINICAL HISTORY: Ascites PROCEDURE: Procedure and risks were explained. Informed consent was obtained. A final timeout was com pleted. The abdomen was prepped and draped in sterile fashion. 1% lidocaine was utilized for skin ane sthesia. Utilizing ultrasound guidance, a 5 Setswana safety centesis catheter was advanced into the left lower q uadrant pocket of ascites. Ultrasound images were obtained. 2 L of yellow-colored ascites fluid was r emoved, with 1 L sent to the lab. The catheter was removed and Band-Aid applied. The patient tolerate d the procedure well. Vital signs will be monitored postprocedure. IMPRESSION: Ultrasound-guided paracentesis as above. Performed, dictated, and signed by Flako Jack PA-C; to be co-signed by Dr. Refugio Bro. Electronically signed by: Refugio Bro M.D. 08/23/2025 3:53 PM
[2025-08-23] MEDS: NICOTINE 21 MG/24 HR TDSY TD SCH (13:18)
[2025-08-23] MEDS: GABAPENTIN 400 MG CAP PO ONE (13:20)
[2025-08-23 13:32] LABS: Lymphocytes, Fluid 3 %; Mono,Macrophage,Mesothelial 97 %; Neutrophils, Fluid 0 %
[2025-08-23] MEDS: DOXYCYCLINE HYCLATE 100 MG in DEXTROSE 5% MINI-B 100 ML IV SCH (14:02)
[2025-08-23] MEDS: PANTOprazole 40 MG/10 ML SYR IV ONE (14:41)
[2025-08-23 14:53] LABS: Influenza A virus by PCR Negative (Neg); Influenza B virus by PCR Negative (Neg); SARS CoV2 RNA(COVID-19) Ceph NEGATIVE (Negative)
[2025-08-23] MEDS: ALBUMIN 25% 25 GM/100 ML VIAL IV ONE (15:22)
[2025-08-23] MEDS: THIAMINE HCL 500 MG in SODIUM CHLORIDE 0.9% 50 ML IV SCH (16:54)
[2025-08-23] MEDS: CEFEPIME 2000MG 2,000 MG/20 ML SYR IV SCH (16:54)
[2025-08-23] MEDS: GABAPENTIN 400 MG CAP PO SCH (17:02)
[2025-08-23 19:09] LABS: Anion Gap 9.0 (3-11); Blood Urea Nitrogen 4.0 mg/dl (6-23); Calcium 7.5 mg/dl (8.6-10.3); Carbon Dioxide 24.0 mmol/L (21-32); Chloride 97.0 mmol/L (98-107); Creatinine Clr Calc Pharmacy 97.4 ml/min; Glucose 95.0 mg/dl (70-99(Fasting)); Potassium 3.5 mmol/L (3.5-5.1); Sodium 130.0 mmol/L (136-145)
[2025-08-23] MEDS: PANTOprazole 40 MG/10 ML SYR IV SCH (20:55)
[2025-08-24] MEDS: LORazepam 1 MG TAB PO PRN (02:29)
[2025-08-24 07:26] LABS: Hematocrit (blood only) 23.1 % (37.0-47.0); Hemoglobin 7.5 g/dl (12.0-16.0); Mean Corpuscular Hemoglobin 25.6 pg (25.0-34.0); Mean Corpuscular Volume 78.8 fL (80.0-100.0); Platelet Count 82 K/uL (130-400); RDW Standard Deviation 58.5 fL (36.4-46.3); Red Blood Count 2.93 M/uL (4.20-5.40); White Blood Count 5.60 K/ul (4.8-10.8)
[2025-08-24 07:47] LABS: Alanine Aminotransferase 37.0 U/L (7-52); Albumin Globulin Ratio 1.1 (0.9-2); Albumin Level 3.1 gm/dl (3.4-5.0); Alkaline Phosphatase 218.0 U/L (34-104); Anion Gap 7.0 (3-11); Bilirubin,Total 4.8 mg/dl (0.2-1.0); Blood Urea Nitrogen 4.0 mg/dl (6-23); Calcium 8.1 mg/dl (8.6-10.3); Carbon Dioxide 28.0 mmol/L (21-32); Chloride 95.0 mmol/L (98-107); Creatinine Clr Calc Pharmacy 112.6 ml/min; Globulin 2.8 gm/dl (2.5-4.0); Glucose 88.0 mg/dl (70-99(Fasting)); Magnesium 1.9 mg/dl (1.7-2.4); Potassium 3.4 mmol/L (3.5-5.1); Sodium 130.0 mmol/L (136-145); Total Protein 5.9 gm/dl (6.0-8.3)
[2025-08-24 08:16] LABS: Hypochromasia Present; Immature Granulocytes # (auto) 0.01 K/uL (0.01-0.20); Immature Granulocytes % (auto) 0.2 %; Target Cells 1+
[2025-08-24] MEDS: FOLIC ACID 1 MG in SYRINGE 9.8 ML IV SCH (08:50)
[2025-08-24] MEDS: REMOVE NICODERM PATCH SCH (08:51)
[2025-08-24] MEDS: GABAPENTIN 400 MG CAP PO SCH (08:52)
[2025-08-24] MEDS: CEROVITE ADV FORMULA TAB PO SCH (09:00)
[2025-08-24] MEDS: MAGNESIUM CHLORIDE W/CALCIUM 64MG DELAYED REL TAB PO SCH (09:00)
[2025-08-24] MEDS: POTASSIUM CHLORIDE CRTAB 20 MEQ TABCR PO SCH (09:00)
[2025-08-24] MEDS ORDERED: SODIUM CHLORIDE 0.9% 100 ML IV PRN (11:45)
--- NOTE | 2025-08-24 11:45 | Hospitalist Progress Note ---
Date of Service August 24, 2025 Assessment & Plan (1) Decompensated cirrhosis: (2) Pneumonia: (3) Anemia: (4) Abdominal pain: (5) Hypomagnesemia: (6) Hypokalemia: (7) Hyponatremia: (8) Hypocalcemia: (9) Celiac disease: (10) Tobacco use: (11) Alcoholism, chronic: (12) Abdominal ascites: Plan 60yo female with known cirrhosis 2nd to etoh dependence, tobacco dependence, prior esophageal varices, celiac disease, and admission in May 2025 for GI bleeding presented from home with 3-4 days of worsening abdominal pain & swelling, nausea/vomiting AM of admission, 2+ weeks of URI symptoms with cough, and poor PO intake x 48 hours. #pneumonia - -b/l basilar -she had hospital stay at [facility] <90 days ago thus covering for HAP / gram negatives -received IV zosyn in ER; changed to cefepime; added doxy for atypical coverage -day #2 of abx today -MRSA swab - negative, deferring on MRSA coverage -COVID/flu/RSV swab - negative #acute on chronic anemia - -iron studies c/w Fe def anemia -likely 2nd to previous GI bleeding, poor PO intake chronically, etc. -consider IV Venofer later in the stay -B12 level wnl -did not check folate level as she is on IV folate at this time -today her Hb was in the mid 7's; repeat H/H later in the day were improved -I did type/cross her for 1 unit of PRBCs; if she drops to <7.5 will transfuse that 1 unit -with her abdominal pain, active etoh use, prior h/o GI bleeding, portal gastropathy, prior esophageal varices, etc. concern for underlying occult bleeding -made her NPO after dinner (when she developed recurrent pain), continues on IV PPI, and asked GI to consult in am -does she need EGD? #abdominal pain - -concern for PUD vs gastritis vs other -IV PPI twice daily -recheck lipase in am -made NPO -morphine prn -GI consult tomorrow am, 08/25 -need for EGD? thus far: -no evidence of cholecystitis -no evidence of pancreatitis -patient NOT having diarrhea thus unlikely to have enterocolitis as suggested on CT a/p at time of admission #decompensated cirrhosis - -moderate ascites on exam and by way of CT abd/pelvis at time of admission -s/p IR paracentesis - diagnostic/therapeutic -2 liters removed -cell counts not c/w SBP -culture thus far negative -fluid studies c/w portal HTN / transudative -start lasix 20mg daily -start aldactone 12.5mg daily -ultimately will need ratios of 20mg/50mg (lasix/aldactone) -she may need another therapeutic paracentesis later in the stay depending on response to diuretics -of note - BPs borderline low hence starting the diuretics at low-dose -nonselective BB would be ideal (inderal, nadalol, etc) but defer at this time -unfortunately she continues to drink etoh #etoh dependence - -gabapentin taper -AWSS protocol with symptom-triggered ativan PRN; thus far AWSS scores are low -thiamine/folic acid IV -MVI daily -candidate for naltrexone or other in the future? -serial LFTs -recheck INR in am #tobacco dependence - -correctional classification counselor to quit -nicoderm patch 21mg/day #hyponatremia - -checked TSH - wnl -hypervolemic hyponatremia -starting diuretics -BMP am #hypokalemia, hypomagnesemia, hypocalcemia - -all repleted and mag is now normal, K is near-normal, and low calcium is improved -give additional K supplementation today -give additional mag supplementation #DVT proph - -defer on chemical DVT proph until we rule out GI bleeding updated 08/23 will update him again tomorrow Admission and Anticipated Discharge Date Admission Date: August 23, 2025 Subjective AWSS scores remain low during my visit she was eating lunch reports that breakfast/lunch did NOT upset her stomach her appetite is good denies any nausea/vomiting she does feel that her abd distension from the ascites is getting worse again no stools yet after seeing her at mid-day I received word late in the day that patient was having epigastric abd pain with radiation to her back this occurred after eating dinner she had requested tums for this did not vomit by report and still no stools patient reported minimal cough; no dyspnea today Review of Systems Review of Systems: gen - no fevers cv - no chest pain pulm - no wheezing GI - no lower abd pain Physical Exam Physical Exam: gen - NAD, no signs of etoh withdrawal, awake, alert HENT - MMM eyes - scleral icterus neck - no JVD CV - RRR, s1 s2, no murmur lungs - mild-mod rales R base, minimal rales L base; no wheeze, no increased work of breathing abd - distended with fluid - modestly better than yesterday; nontender, no caput, spleen tip palpable; paracentesis site LLQ clean, band-aid in place ext - no edema, pulses 2+ b/l feet neuro - no asterixis or tremors psych - a/o x 3 Results & Data Results & Data Vital Signs (Past 12 Hours) Vital Signs Temp Pulse Pulse Resp BP BP Pulse Ox 08/24/25 11:33 36.6 C 108 H 21 100/65 96 08/24/25 10:48 08/24/25 09:43 92 H 08/24/25 08:02 36.7 C 94 H 22 118/74 93 08/24/25 02:22 37.0 C 106 H 18 121/65 96 O2 Del Method O2 Flow Rate 08/24/25 11:33 Nasal Cannula 2 08/24/25 10:48 Nasal Cannula 2 08/24/25 09:43 08/24/25 08:02 Room Air 08/24/25 02:22 Nasal Cannula 3 Laboratory Results Abnormal lab results 08/23/25 08/24/25 Range/Units 17:57 06:33 RBC 2.93 L (4.20-5.40) M/uL Hgb 7.5 L (12.0-16.0) g/dl Hct 23.1 L (37.0-47.0) % MCV 78.8 L (80.0-100.0) fL RDW Std Deviation 58.5 H (36.4-46.3) fL RDW Coeff of Car 20.3 H (11.5-14.5) % Plt Count 82 L (130-400) K/uL Lymph # (Auto) 1.07 L (1.20-3.40) K/uL [place] # (Auto) 0.62 H (0.11-0.59) K/uL Sodium 130 L 130 L (136-145) mmol/L Potassium 3.4 L (3.5-5.1) mmol/L Chloride 97 L 95 L (98-107) mmol/L BUN 4 L 4 L (6-23) mg/dl Creatinine 0.59 L 0.51 L (0.6-1.2) mg/dl BUN/Creatinine Ratio 6.8 L 7.8 L (10-20) Calcium 7.5 L 8.1 L (8.6-10.3) mg/dl Total Bilirubin 4.8 H (0.2-1.0) mg/dl AST 148 H (13-39) U/L Alkaline Phosphatase 218 H (34-104) U/L Total Protein 5.9 L D (6.0-8.3) gm/dl Albumin 3.1 L (3.4-5.0) gm/dl PG Care Time/CCT Total # of Minutes Spent Total Time Spent with Patient: Total time spent is greater than 50% in coordination of care (as documented) at patient's floor/unit and/or counseling patient: Coding Level of Care Code 49129 SUB INP/OBS CARE 3/50MIN Diagnoses Decompensated cirrhosis K72.90; K74.60 Pneumonia J18.9 Anemia D64.9 Abdominal pain R10.9 Hypomagnesemia E83.42 Hypokalemia E87.6 Hyponatremia E87.1 Hypocalcemia E83.51 Celiac disease K90.0 Tobacco use Z72.0 Alcoholism, chronic F10.20 Abdominal ascites R18.8 Ascites type: other type (12) Abdominal ascites Ascites type: other type Qualified Code(s): R18.8 - Other ascites
[2025-08-24 12:10] LABS: Iron 45.0 mcg/dl (35-150); Total Iron Binding Cap Calc 290.0 mcg/dl (250-450); Transferrin 207.0 mg/dl (200-360); Transferrin (FE) Percent Satur 16.0 % (15-50)
[2025-08-24 12:30] LABS: Ferritin 31.5 ng/ml (8-388)
[2025-08-24 13:20] LABS: Hematocrit (blood only) 26.1 % (37.0-47.0); Hemoglobin 8.3 g/dl (12.0-16.0); Mean Corpuscular Hemoglobin 25.5 pg (25.0-34.0); Mean Corpuscular Volume 80.1 fL (80.0-100.0); Platelet Count 82 K/uL (130-400); RDW Standard Deviation 60.9 fL (36.4-46.3); Red Blood Count 3.26 M/uL (4.20-5.40); White Blood Count 6.50 K/ul (4.8-10.8)
[2025-08-24] MEDS: SPIRONOLACTONE 12.5 MG TAB PO SCH (15:19)
[2025-08-24] MEDS: FUROSEMIDE 20 MG TAB PO SCH (15:19)
[2025-08-24] MEDS: CALCIUM CARBONATE 500 MG CHEWABLE TAB PO PRN (18:13)
[2025-08-24] MEDS: MoRPHine SULFATE 2 MG/ML CARP IV PRN (18:15)
[2025-08-24] MEDS: FAMOTIDINE 20MG IV PUSH 20 MG/5 ML SYR IV STA (20:16)
[2025-08-25 06:17] LABS: Hematocrit (blood only) 23.7 % (37.0-47.0); Hemoglobin 8.0 g/dl (12.0-16.0); Mean Corpuscular Hemoglobin 26.8 pg (25.0-34.0); Mean Corpuscular Volume 79.5 fL (80.0-100.0); Platelet Count 73 K/uL (130-400); RDW Standard Deviation 59.7 fL (36.4-46.3); Red Blood Count 2.98 M/uL (4.20-5.40); White Blood Count 7.20 K/ul (4.8-10.8)
[2025-08-25 06:40] LABS: Alanine Aminotransferase 34.0 U/L (7-52); Albumin Globulin Ratio 1.0 (0.9-2); Albumin Level 3.1 gm/dl (3.4-5.0); Alkaline Phosphatase 206.0 U/L (34-104); Anion Gap 5.0 (3-11); Bilirubin,Total 4.5 mg/dl (0.2-1.0); Blood Urea Nitrogen 6.0 mg/dl (6-23); Calcium 8.3 mg/dl (8.6-10.3); Carbon Dioxide 29.0 mmol/L (21-32); Chloride 95.0 mmol/L (98-107); Creatinine Clr Calc Pharmacy 71.8 ml/min; Globulin 3.1 gm/dl (2.5-4.0); Glucose 93.0 mg/dl (70-99(Fasting)); Lipase 31.0 U/L (11-82); Potassium 4.2 mmol/L (3.5-5.1); Sodium 129.0 mmol/L (136-145); Total Protein 6.2 gm/dl (6.0-8.3)
[2025-08-25 06:49] LABS: INR 2.0 (0.9-1.1); Prothrombin Time 20.0 Seconds (9.0-12.0)
[2025-08-25] MEDS ORDERED: MoRPHine SULFATE 4 MG/ML 1 ML CARP\\VIAL IV PRN (08:24)
[2025-08-25] MEDS: PHYTONADIONE 5 MG in DEXTROSE 5% 50 ML IV ONE (09:48)
[2025-08-25] MEDS: SPIRONOLACTONE 12.5 MG TAB PO ONE (09:48)
--- NOTE | 2025-08-25 11:37 | Gastrointestinal Consultation ---
Date of Consultation August 25, 2025 Assessment & Plan (1) Decompensated cirrhosis: -Paracentesis with fluid studies to be done today; She does feel like ascites is the source of her abdominal discomfort. -Continue to trend MELD -2 gm Na restricted diet -Alcohol cessation is advised; Continue Thiamine & Folic acid. Monitor for alcohol withdrawal -Continue PPI -Continue Lasix & Aldactone--may need to titrate pending response -Ensure 4 BMs daily -Avoid NSAIDs, limit Acetaminophen to <2000 mg daily -Daily MELD labs -When patient is discharged, she will need to follow-up with hepatology; She has missed the last 2 appointments -Up to date with variceal surveillance with recent EGD in May 2025. No overt GI bleeding at this time. (2) Abnormal CT of liver: CT shows right hepatic lobe abnormality. This will need further evaluation given concern for HCC. Timing TBD as patient is currently awaiting paracentesis and is being treated for pneumonia. An AFP will be obtained as we do not have one in our system. Supervising Physician Co-Signing Physician Notes I saw and examined this patient with our nurse practitioner and agree with her assessment and plan. On decompensated cirrhosis complicated by refractory ascites requiring frequent paracenteses. Presents with increasing ascites status post paracentesis today results pending. No signs of GI bleeding at this time. Agree with diuretic therapy, 2 g sodium diet. Alpha-fetoprotein level ordered to further evaluate possible lesion seen on liver imaging. Observe and prophylax for alcohol withdrawal History of Present Illness Reason for Consultation: known cirrhosis, ongoing etoh use, epigastric pain Attending Physician: Mehdi Vidales MD History of Present Illness Patient is a 60 yo female with alcoholic cirrhosis with esophageal varices, tobacco abuse, Celiac Disease who presents to the ED with 3-4 days of worsening abdominal swelling. She sees Dr. Gallego of [facility], but tells me she missed her last two appointments. She continues to drink daily, but notes the quantity varies. She notes she recently had an outpatient paracentesis within the past several days, but then noticed her abdomen was filling up with fluid quickly again. She had a CT on 08/23/25 that indicated: IMPRESSION: 1. Progressive severe cirrhosis with moderate ascites. 2. There is a small masslike area of increased enhancement anterior right hepatic lobe. Differential diagnosis includes hepatocellular carcinoma and heterogeneity due to the cirrhosis. 3. Diffuse enterocolitis versus bowel edema due to the ascites. No bowel obstruction. 4. No other acute findings seen. Otherwise as described. She is admitted under hospitalist service and is being treated with antibiotics for pneumonia. She is prescribed Protonix 40 mg BID at home. Last EGD was in May 2025 indicating obliterated varices and portal hypertensive gastropathy. She notes she moves her bowels several times daily. No recent dietary changes. H/H 8/23.7. MELD 20. I do not have a recent AFP. Allergies Allergy/AdvReac Type Severity Reaction Status Date / Time gluten Allergy Unknown Hives Verified 06/13/25 09:46 prednisone AdvReac Intermediate Nausea,vomiting Verified 06/13/25 09:46 and diarrhea Home Medications Medication Instructions Recorded Confirmed Type folic acid 1 mg tablet 1 mg PO QAM #30 tabs 01/27/25 08/23/25 Rx potassium chloride 20 mEq 40 meq PO .EVERY COUPLE DAYS 02/23/25 08/23/25 History tablet,extended release(part/cryst) pantoprazole 40 mg tablet,delayed 40 mg PO BID #60 tabs 06/15/25 08/23/25 Rx release magnesium oxide 400 mg (241.3 mg 400 mg PO .EVERY COUPLE DAYS 08/23/25 08/23/25 History magnesium) tablet niacin 50 mg tablet 0 mg PO DAILY 08/23/25 08/23/25 History pyridoxine (vitamin B6) 0 mg PO QAM 08/23/25 08/23/25 History thiamine HCl (vitamin B1) 100 mg 100 mg PO .Q OTHER DAY 08/23/25 08/23/25 History tablet vitamin D3-vitamin K2 0 mg PO DAILY 08/23/25 08/23/25 History Patient History Medical History Hematemesis Portal hypertensive gastropathy Syncope Alcoholic hepatitis Hyperbilirubinemia Prolonged QT interval Alcoholism, chronic Hypomagnesemia Hypokalemia Acute upper gastrointestinal bleeding Hyponatremia Celiac disease Tobacco use Surgical History H/O eye surgery Family History Father , in his 80s Prostate cancer Mother Alcohol abuse Other Stroke Social History Smoking Status: Current every day smoker Tobacco Type: Cigarettes Cigarettes Per Day: 1 ppd; Second Hand Exposure: Yes; Do You Dip or Chew Tobacco: No; Hx Alcohol Use: Yes Alcohol type: hard liquor Alcohol type Comment: h/o heavy vodka intake, at least 2-3 ounces/day Hx Substance Use: No Preferred Language: British Communication Ability: Effective Laser Beam Cutter Required: No Beliefs That Will Affect Care: None marital status: Single Current Living Situation: Spouse Current Living Situation Comment: [place] - current occupational status: unemployed current occupation: previously worked for [employer] How many Children do You have: 1 Feels Safe at Home: Yes Safety Concerns: Feels Safe At This Time Assistive Devices: Cane and Walker Review of Systems Constitutional: + fatigue; no fever Respiratory: no cough and no dyspnea Cardiovascular: no chest pain Gastrointestinal: + abdominal pain; no heartburn, no nause a, no coffee ground emesis, no hematemesis, no diarrhea/loose stools, no blood in stools and no melena Physical Exam Constitutional: well developed Respiratory: normal respiratory effort Cardiovascular: Rate/Rhythm: regular rate Gastrointestinal (Abdomen): +ascites Psychiatric: Orientation: alert and oriented x 3 Results & Data Vital Signs (Past 12 Hours) Vital Signs Temp Pulse Resp BP Pulse Ox O2 Del Method O2 Flow Rate 08/25/25 11:14 36.6 C 93 H 20 126/79 88 L Room Air 08/25/25 08:00 Nasal Cannula 1 08/25/25 07:46 37.1 C 95 H 20 122/75 93 Nasal Cannula 2 08/25/25 03:34 36.8 C 87 20 120/75 96 Nasal Cannula 2 Laboratory Results Laboratory Results - last 48 hr 08/23/25 08/23/25 08/24/25 17:57 Unknown 06:33 WBC 5.60 RBC 2.93 L Hgb 7.5 L Hct 23.1 L MCV 78.8 L MCH 25.6 MCHC 32.5 RDW Std Deviation 58.5 H RDW Coeff of Car 20.3 H Plt Count 82 L MPV 11.1 Immature Gran % (Auto) 0.2 Neut % (Auto) 68.6 Lymph % (Auto) 19.1 Lander % (Auto) 11.1 Eos % (Auto) 0.5 Baso % (Auto) 0.5 Neut # (Auto) 3.84 Lymph # (Auto) 1.07 L Lander # (Auto) 0.62 H Eos # (Auto) 0.03 Baso # (Auto) 0.03 Immature Gran # (Auto) 0.01 Hypochromasia Present Target Cells 1+ PT INR Sodium 130 L 130 L Potassium 3.5 D 3.4 L Chloride 97 L 95 L Carbon Dioxide 24 28 Anion Gap 9 7 BUN 4 L 4 L Creatinine 0.59 L 0.51 L Est Cr Clr Drug Dosing 97.4 112.6 eGFR 102.47 106.13 BUN/Creatinine Ratio 6.8 L 7.8 L Glucose 95 88 Calcium 7.5 L 8.1 L Magnesium 1.9 Iron 45 TIBC 290 Transferrin 207 Transferrin % Sat 16 Ferritin 31.5 Total Bilirubin 4.8 H AST 148 H ALT 37 Alkaline Phosphatase 218 H Total Protein 5.9 L D Albumin 3.1 L Globulin 2.8 Albumin/Globulin Ratio 1.1 Lipase Vitamin B12 Nasal Screen MRSA (PCR) Negative Stool Occult Bld Scrn SARS-CoV-2 (PCR) NEGATIVE Influenza Type A (PCR) Negative Influenza Type B (PCR) Negative RSV (RT-PCR) Negative Blood Type Antibody Screen Crossmatch 08/24/25 08/25/25 08/25/25 12:49 05:35 Unknown WBC 6.50 7.20 RBC 3.26 L 2.98 L Hgb 8.3 L 8.0 L Hct 26.1 L 23.7 L MCV 80.1 79.5 L MCH 25.5 26.8 MCHC 31.8 L 33.8 RDW Std Deviation 60.9 H 59.7 H RDW Coeff of Car 20.8 H 20.5 H Plt Count 82 L 73 L MPV 12.0 Immature Gran % (Auto) Neut % (Auto) Lymph % (Auto) Lander % (Auto) Eos % (Auto) Baso % (Auto) Neut # (Auto) Lymph # (Auto) Lander # (Auto) Eos # (Auto) Baso # (Auto) Immature Gran # (Auto) Hypochromasia Target Cells PT 20.0 H INR 2.0 H Sodium 129 L Potassium 4.2 D Chloride 95 L Carbon Dioxide 29 Anion Gap 5 BUN 6 Creatinine 0.80 Est Cr Clr Drug Dosing 71.8 eGFR 83.78 BUN/Creatinine Ratio 7.5 L Glucose 93 Calcium 8.3 L Magnesium Iron TIBC Transferrin Transferrin % Sat Ferritin Total Bilirubin 4.5 H AST 117 H ALT 34 Alkaline Phosphatase 206 H Total Protein 6.2 Albumin 3.1 L Globulin 3.1 Albumin/Globulin Ratio 1.0 Lipase 31 Vitamin B12 867 Nasal Screen MRSA (PCR) Stool Occult Bld Scrn Negative SARS-CoV-2 (PCR) Influenza Type A (PCR) Influenza Type B (PCR) RSV (RT-PCR) Blood Type A Positive Antibody Screen NEGATIVE Crossmatch See Detail PG Care Time/CCT Total # of Minutes Spent Total Time Spent with Patient: Total time spent is greater than 50% in coordination of care (as documented) at patient's floor/unit and/or counseling patient: Coding Level of Care Code 94086 IN/OBS CONSULT LVL 4,60M Diagnoses Decompensated cirrhosis K72.90; K74.[address] of liver R93.2
[2025-08-25] MEDS: GABAPENTIN 400 MG CAP PO SCH (12:23)
--- NOTE | 2025-08-25 13:01 | Hospitalist Progress Note ---
Date of Service August 25, 2025 Assessment & Plan (1) Decompensated cirrhosis: (2) Pneumonia: (3) Anemia: (4) Abdominal pain: (5) Hypomagnesemia: (6) Hypokalemia: (7) Hyponatremia: (8) Hypocalcemia: (9) Celiac disease: (10) Tobacco use: (11) Alcoholism, chronic: (12) Abdominal ascites: Plan 60yo female with known cirrhosis 2nd to etoh dependence, tobacco dependence, prior esophageal varices, celiac disease, and admission in May 2025 for GI bleeding presented from home with 3-4 days of worsening abdominal pain & swelling, nausea/vomiting AM of admission, 2+ weeks of URI symptoms with cough, and poor PO intake x 48 hours. #pneumonia - -b/l basilar -she had hospital stay at [facility] <90 days ago thus covering for HAP / gram negatives -received IV zosyn in ER; changed to cefepime; added doxy for atypical coverage -day #3 of abx -MRSA swab - negative, deferring on MRSA coverage -COVID/flu/RSV swab - negative -potentially could change to PO levaquin tomorrow #acute on chronic anemia - -iron studies c/w Fe def anemia -likely 2nd to previous GI bleeding, poor PO intake chronically, etc. -uncontrolled celiac disease can cause Fe Def as well -consider IV Venofer later in the stay -B12 level wnl -did not check folate level as she is on IV folate at this time -Hb today stable at 8 -fecal occult blood test negative -appreciate GI consultation -- no plans for EGD -they did send AFP today given ?of right-sided liver mass on CT a/p this admission #abdominal pain - -PUD vs gastritis vs bloating/discomfort from ascites vs other -cont IV PPI twice daily -rechecked lipase today - again wnl -morphine prn -GI consult appreciated; no plans for EGD thus far: -no evidence of cholecystitis -no evidence of pancreatitis -patient NOT having diarrhea thus unlikely to have enterocolitis as suggested on CT a/p at time of admission -patient reports having had relief of her abdominal symptoms with paracentesis the other day -will obtain another paracentesis today but I don't think there is significant ascites at this time -cont diurestics #decompensated cirrhosis - -moderate ascites on exam and by way of CT abd/pelvis at time of admission -s/p IR paracentesis - diagnostic/therapeutic -2 liters removed -cell counts not c/w SBP -culture remains negative -fluid studies c/w portal HTN / transudative -started lasix 20mg daily -started aldactone 12.5mg daily - increase to 25mg/day -ultimately will need ratios of 20mg/50mg (lasix/aldactone) -nonselective BB would be ideal (inderal, nadalol, etc) but defer at this time -unfortunately she continues to drink etoh at home -paracentesis today by IR as noted above #etoh dependence - -gabapentin taper -AWSS protocol with symptom-triggered ativan PRN; AWSS scores remain low -cont thiamine & folic acid -MVI daily -candidate for naltrexone or other in the future? -serial LFTs #tobacco dependence - -high school counselor to quit -nicoderm patch 21mg/day #hyponatremia - -checked TSH - wnl -hypervolemic hyponatremia -Na level 129 - cont diuretics -BMP am #hypokalemia, hypomagnesemia, hypocalcemia - -all repleted -cont K supplementation -cont mag supplementation #DVT proph - -defer on chemical DVT proph due to elevated INR and low platelets #elevated INR - -give vit K 5mg IV x 1 and repeat INR tomorrow progressing Admission and Anticipated Discharge Date Admission Date: August 23, 2025 Subjective patient seen by GI this am no plans for EGD during the visit patient reported no abd pain had abd pain last night she is hungry she does have ongoing bloating and distension requests another paracentesis did have a stool and it was formed heme negative has some cough but no dyspnea staff have tried to wean the O2 but she drops to the 80s with taking it off she was tearful during the visit as we discussed options for maintaining sobriety from the etoh she brought up the subject of liver transplant she reports at one point she was on the liver transplant list and there was a match in her family however, she ultimately took herself OFF the list she is anxious to get home AWSS scores have been wnl Review of Systems Review of Systems: gen - no fevers or chills cv - no chest pain pulm - no wheezing or dyspnea GI - no vomiting Physical Exam Physical Exam: gen - NAD, no signs of etoh withdrawal, awake, alert - but tearful HENT - MMM eyes - scleral icterus neck - no JVD CV - RRR, s1 s2, no murmur lungs - rales R base, scant rales L base; no wheeze, no increased work of br eathing abd - distended with fluid - no worse than yesterday; mildly tender epigastric region ext - no edema, pulses 2+ b/l feet neuro - no asterixis or tremors psych - a/o x 3, tearful Results & Data Results & Data Vital Signs (Past 12 Hours) Vital Signs Temp Pulse Resp BP Pulse Ox O2 Del Method O2 Flow Rate 08/25/25 11:14 36.6 C 93 H 20 126/79 88 L Room Air 08/25/25 08:00 Nasal Cannula 1 08/25/25 07:46 37.1 C 95 H 20 122/75 93 Nasal Cannula 2 08/25/25 03:34 36.8 C 87 20 120/75 96 Nasal Cannula 2 Laboratory Results Laboratory Results - last 24 hr 08/24/25 08/25/25 08/25/25 12:49 05:35 12:00 WBC 6.50 7.20 RBC 3.26 L 2.98 L Hgb 8.3 L 8.0 L Hct 26.1 L 23.7 L MCV 80.1 79.5 L MCH 25.5 26.8 MCHC 31.8 L 33.8 RDW Std Deviation 60.9 H 59.7 H RDW Coeff of Car 20.8 H 20.5 H Plt Count 82 L 73 L MPV 12.0 PT 20.0 H INR 2.0 H Sodium 129 L Potassium 4.2 D Chloride 95 L Carbon Dioxide 29 Anion Gap 5 BUN 6 Creatinine 0.80 Est Cr Clr Drug Dosing 71.8 eGFR 83.78 BUN/Creatinine Ratio 7.5 L Glucose 93 Calcium 8.3 L Total Bilirubin 4.5 H AST 117 H ALT 34 Alkaline Phosphatase 206 H Total Protein 6.2 Albumin 3.1 L Globulin 3.1 Albumin/Globulin Ratio 1.0 Lipase 31 Tumor Marker AFP Pending Vitamin B12 867 Stool Occult Bld Scrn Blood Type A Positive Antibody Screen NEGATIVE Crossmatch See Detail 08/25/25 Unknown WBC RBC Hgb Hct MCV MCH MCHC RDW Std Deviation RDW Coeff of Car Plt Count MPV PT INR Sodium Potassium Chloride Carbon Dioxide Anion Gap BUN Creatinine Est Cr Clr Drug Dosing eGFR BUN/Creatinine Ratio Glucose Calcium Total Bilirubin AST ALT Alkaline Phosphatase Total Protein Albumin Globulin Albumin/Globulin Ratio Lipase Tumor Marker AFP Vitamin B12 Stool Occult Bld Scrn Negative Blood Type Antibody Screen Crossmatch PG Care Time/CCT Total # of Minutes Spent Total Time Spent with Patient: Total time spent is greater than 50% in coordination of care (as documented) at patient's floor/unit and/or counseling patient: Coding Level of Care Code 26909 SUB INP/OBS CARE 3/50MIN Diagnoses Decompensated cirrhosis K72.90; K74.60 Pneumonia J18.9 Anemia D64.9 Abdominal pain R10.9 Hypomagnesemia E83.42 Hypokalemia E87.6 Hyponatremia E87.1 Hypocalcemia E83.51 Celiac disease K90.0 Tobacco use Z72.0 Alcoholism, chronic F10.20 Abdominal ascites R18.8 Ascites type: other type (12) Abdominal ascites Ascites type: other type Qualified Code(s): R18.8 - Other ascites
--- NOTE | 2025-08-25 14:38 | Ultrasound Report ---
ULTRASOUND-GUIDED PARACENTESIS CLINICAL HISTORY: Ascites PROCEDURE: Procedure and risks were explained. Informed consent was obtained. A final timeout was com pleted. The abdomen was prepped and draped in sterile fashion. 1% lidocaine was utilized for skin ane sthesia. Utilizing ultrasound guidance, a 5 Yoruba safety centesis catheter was advanced into the left lower q uadrant pocket of ascites. Ultrasound images were obtained. 1.1 L of yellow-colored ascites fluid was removed and discarded. The catheter was removed and Band-Aid applied. The patient tolerated the proc edure well. Vital signs will be monitored postprocedure. IMPRESSION: Ultrasound-guided paracentesis as above. Performed, dictated, and signed by Flako Jack PA-C; to be co-signed by Dr. Refugio Bro. Electronically signed by: Refugio Bro M.D. 08/25/2025 4:02 PM
[2025-08-25] MEDS: MELATONIN 3 MG TAB PO PRN (21:08)
[2025-08-26 07:52] LABS: Hematocrit (blood only) 24.0 % (37.0-47.0); Hemoglobin 7.8 g/dl (12.0-16.0); Mean Corpuscular Hemoglobin 26.1 pg (25.0-34.0); Mean Corpuscular Volume 80.3 fL (80.0-100.0); Platelet Count 67 K/uL (130-400); RDW Standard Deviation 62.3 fL (36.4-46.3); Red Blood Count 2.99 M/uL (4.20-5.40); White Blood Count 6.71 K/ul (4.8-10.8)
[2025-08-26 07:56] LABS: Anion Gap 6.0 (3-11); Blood Urea Nitrogen 9.0 mg/dl (6-23); Calcium 8.3 mg/dl (8.6-10.3); Carbon Dioxide 27.0 mmol/L (21-32); Chloride 97.0 mmol/L (98-107); Creatinine Clr Calc Pharmacy 84.5 ml/min; Glucose 84.0 mg/dl (70-99(Fasting)); Magnesium 1.3 mg/dl (1.7-2.4); Potassium 4.2 mmol/L (3.5-5.1); Sodium 130.0 mmol/L (136-145)
[2025-08-26 08:16] LABS: INR 1.8 (0.9-1.1); Prothrombin Time 18.8 Seconds (9.0-12.0)
[2025-08-26] MEDS: MAGNESIUM SULFATE / D5W 1 GM/100 ML BAG IV SCH (08:37)
[2025-08-26] MEDS: SPIRONOLACTONE 25 MG TAB PO SCH (08:51)
[2025-08-26] MEDS ORDERED: SPIRONOLACTONE 25 MG TAB PO SCH (09:00)
[2025-08-26] MEDS: PHYTONADIONE 5 MG in DEXTROSE 5% 50 ML IV ONE (10:50)
[2025-08-26] MEDS: IRON SUCROSE 300 MG in SODIUM CHLORIDE 0.9% 250 ML IV ONE (11:27)
--- NOTE | 2025-08-26 13:27 | Hospitalist Progress Note ---
Date of Service August 26, 2025 Assessment & Plan (1) Decompensated cirrhosis: (2) Pneumonia: (3) Anemia: (4) Abdominal pain: (5) Hypomagnesemia: (6) Hypokalemia: (7) Hyponatremia: (8) Hypocalcemia: (9) Celiac disease: (10) Tobacco use: (11) Alcoholism, chronic: (12) Abdominal ascites: Plan 60yo female with known cirrhosis 2nd to etoh dependence, tobacco dependence, prior esophageal varices, celiac disease, and admission in May 2025 for GI bleeding presented from home with 3-4 days of worsening abdominal pain & swelling, nausea/vomiting AM of admission, 2+ weeks of URI symptoms with cough, and poor PO intake x 48 hours. #pneumonia - -b/l basilar -she had hospital stay at [facility] <90 days ago thus covering for HAP / gram negatives -received IV zosyn in ER; changed to cefepime; added doxy for atypical coverage -day #4 of abx -MRSA swab - negative, deferring on MRSA coverage -COVID/flu/RSV swab - negative -potentially could change to PO levaquin tomorrow - 750mg daily -Rx 7 days of IV/PO #acute on chronic anemia - -iron studies c/w Fe def anemia -likely 2nd to previous GI bleeding, poor PO intake chronically, etc. -uncontrolled celiac disease can cause Fe Def as well -IV Venofer 300mg x 1 today; consider 2nd dose tomorrow -B12 level wnl -did not check folate level as she is on IV folate at this time -Hb today acceptable -fecal occult blood test negative -appreciate GI consultation -- no plans for EGD -they did send AFP today given ?of right-sided liver mass on CT a/p this admission -repeat CBC am #abdominal pain - -resolved -PUD vs gastritis vs bloating/discomfort from ascites vs other -cont PPI -GI consult appreciated; no plans for EGD thus far: -no evidence of cholecystitis -no evidence of pancreatitis -patient NOT having diarrhea thus unlikely to have enterocolitis as suggested on CT a/p at time of admission -no evidence of SBP #decompensated cirrhosis - -moderate ascites on exam and by way of CT abd/pelvis at time of admission -s/p IR paracentesis - diagnostic/therapeutic -2 liters removed -cell counts not c/w SBP -culture remains negative -fluid studies c/w portal HTN / transudative -started lasix 20mg daily -started aldactone - increase to 50mg/day -ultimately will need ratios of 40mg/100mg (lasix/aldactone) but defer to outpatient providers -nonselective BB would be ideal (inderal, nadalol, etc) but defer at this time -unfortunately she continues to drink etoh at home -s/p paracentesis yesterday with only 1 liter removed #etoh dependence - -gabapentin taper -AWSS protocol with symptom-triggered ativan PRN; AWSS scores remain low and no evidence of withdrawal -cont thiamine & folic acid -MVI daily -candidate for naltrexone or other in the future? 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 -nicoderm patch 21mg/day #hyponatremia - -checked TSH - wnl -hypervolemic hyponatremia -Na level stable at 129/130 range - cont diuretics -BMP am #hypokalemia, hypomagnesemia, hypocalcemia - -all repleted -cont K supplementation -cont mag supplementation but give 3 grams mag sulfate (1.3 mag level today) -repeat BMP/mag am #DVT proph - -defer on chemical DVT proph due to elevated INR and low platelets #elevated INR - -give vit K 5mg IV x 1 again today -INR improving -probably combo of vitamin K def as well as liver disease home next 1-2 days left message for pt's on his voicemail this pm, 08/26 offered support to patient as she was very tearful today Admission and Anticipated Discharge Date Admission Date: August 23, 2025 Subjective patient with multiple complaints today -- 1. right arm discomfort/swelling - -started last pm after what sounds like an IV infiltrated 2. tired of being in the hospital 3. sad/tearful/homesick - but denies depression 4. still feels bloated tolerating diet no vomiting denies cough no dyspnea still requiring NC O2 Review of Systems Review of Systems: gen - no fevers or chills cv - no chest pain GI - no blood per rectum Physical Exam Physical Exam: gen - NAD, no signs of etoh withdrawal, awake, alert - again very tearful today and sad HENT - MMM eyes - scleral icterus neck - no JVD CV - RRR, s1 s2, no murmur lungs - rales b/l bases worse on right; no wheeze, no increased work of breathing abd - still distended but improved from yesterday; NT; BS+; paracentesis sites not leaking, clean ext - no edema, pulses 2+ b/l feet neuro - no asterixis or tremors psych - a/o x 3, tearful skin - right arm - evidence of IV infiltration of right arm with swelling; I don't feel any palpable cord in any location Results & Data Results & Data Vital Signs (Past 12 Hours) Vital Signs Temp Pulse Resp BP BP Pulse Ox O2 Del Method 08/26/25 11:00 36.9 C 86 20 101/63 95 Room Air 08/26/25 08:00 Nasal Cannula 08/26/25 08:00 36.8 C 87 20 123/78 93 Room Air 08/26/25 04:25 36.5 C 84 17 132/83 96 Room Air O2 Flow Rate 08/26/25 11:00 08/26/25 08:00 1 08/26/25 08:00 08/26/25 04:25 Laboratory Results Laboratory Results - last 24 hr 08/26/25 06:23 WBC 6.71 RBC 2.99 L Hgb 7.8 L Hct 24.0 L MCV 80.3 MCH 26.1 MCHC 32.5 RDW Std Deviation 62.3 H RDW Coeff of Car 21.4 H Plt Count 67 L PT 18.8 H INR 1.8 H Sodium 130 L Potassium 4.2 Chloride 97 L Carbon Dioxide 27 Anion Gap 6 BUN 9 Creatinine 0.68 Est Cr Clr Drug Dosing 84.5 eGFR 99.02 BUN/Creatinine Ratio 13.2 Glucose 84 Calcium 8.3 L Magnesium 1.3 L Diagnostic Findings Microbiology 08/23/25 16:13 Blood Aerobic Blood Culture - Preliminary No growth in Aerobic bottle after 48 hours. 08/23/25 16:13 Blood Anaerobic Blood Culture - Preliminary No growth in Anaerobic bottle after 48 hours. 08/23/25 10:15 Peritoneal Fluid Gram Stain - Final 08/23/25 10:15 Peritoneal Fluid Aerobic and Anaerobic Culture - Preliminary No growth to date. 08/23/25 10:38 Blood Aerobic Blood Culture - Preliminary No growth in Aerobic bottle after 48 hours. 08/23/25 10:38 Blood Anaerobic Blood Culture - Preliminary No growth in Anaerobic bottle after 48 hours. PG Care Time/CCT Total # of Minutes Spent Total Time Spent with Patient: Total time spent is greater than 50% in coordination of care (as documented) at patient's floor/unit and/or counseling patient: Coding Level of Care Code 24208 SUB INP/OBS CARE 3/50MIN Diagnoses Decompensated cirrhosis K72.90; K74.60 Pneumonia J18.9 Anemia D64.9 Abdominal pain R10.9 Hypomagnesemia E83.42 Hypokalemia E87.6 Hyponatremia E87.1 Hypocalcemia E83.51 Celiac disease K90.0 Tobacco use Z72.0 Alcoholism, chronic F10.20 Abdominal ascites R18.8 Ascites type: other type (12) Abdominal ascites Ascites type: other type Qualified Code(s): R18.8 - Other ascites
[2025-08-26] MEDS: GABAPENTIN 400 MG CAP PO SCH (23:26)
[2025-08-27 05:21] VITALS: TEMP 98.4
[2025-08-27 07:34] LABS: Hematocrit (blood only) 26.0 % (37.0-47.0); Hemoglobin 8.5 g/dl (12.0-16.0); Mean Corpuscular Hemoglobin 26.5 pg (25.0-34.0); Mean Corpuscular Volume 81.0 fL (80.0-100.0); Platelet Count 75 K/uL (130-400); RDW Standard Deviation 64.0 fL (36.4-46.3); Red Blood Count 3.21 M/uL (4.20-5.40); White Blood Count 6.96 K/ul (4.8-10.8)
[2025-08-27 07:55] LABS: Anion Gap 6.0 (3-11); Blood Urea Nitrogen 9.0 mg/dl (6-23); Calcium 8.7 mg/dl (8.6-10.3); Carbon Dioxide 25.0 mmol/L (21-32); Chloride 98.0 mmol/L (98-107); Creatinine Clr Calc Pharmacy 89.8 ml/min; Glucose 99.0 mg/dl (70-99(Fasting)); Magnesium 1.8 mg/dl (1.7-2.4); Potassium 4.4 mmol/L (3.5-5.1); Sodium 129.0 mmol/L (136-145)
[2025-08-27 08:01] LABS: INR 1.7 (0.9-1.1); Prothrombin Time 17.2 Seconds (9.0-12.0)
[2025-08-27] MEDS: IRON SUCROSE 300 MG in SODIUM CHLORIDE 0.9% 250 ML IV ONE (10:18)
[2025-08-27 14:11] VITALS: BP 124/72; PULSE 81; RESP 20; O2SAT 90
--- NOTE | 2025-08-27 14:13 | Discharge Summary ---
Discharge Summary Date of Service date of admission - August 23, 2025 date of discharge - August 27, 2025 Principal Dx & Hospital Course #1 = Principal Diagnosis (1) Decompensated cirrhosis: (2) Pneumonia: (3) Anemia: (4) Abdominal pain: (5) Hypomagnesemia: (6) Hypokalemia: (7) Hyponatremia: (8) Hypocalcemia: (9) Celiac disease: (10) Tobacco use: (11) Alcoholism, chronic: (12) Abdominal ascites: Plan 60yo female with known cirrhosis 2nd to long-standing etoh dependence, tobacco dependence, prior esophageal varices, celiac disease, and admission in May 2025 for GI bleeding presented from home with 3-4 days of worsening abdominal pain & swelling, nausea/vomiting AM of admission, 2+ weeks of URI symptoms with cough, and poor PO intake x 48 hours. #pneumonia - -b/l basilar on exam & x-ray -she had hospital stay at [facility] <90 days ago thus covered for HAP / gram negatives -received IV zosyn in ER then changed to IV cefepime; added doxycycline for atypical coverage -received 5 days of IV antibiotic therapy while hospitalized -MRSA swab - negative -COVID/flu/RSV swab - negative -at discharge recommended 2 additional days of levaquin 750mg PO daily -O2 was weaned off, and she passed her ambulatory 2-step O2 test - thus, no home oxygen needed -blood cx's negative while here #acute on chronic anemia - -iron studies c/w Fe def anemia -baseline hemoglobin throughout most of 2024 has been 8-10 -chronic Fe def anemia likely 2nd to previous GI bleeding (summer 2024), poor PO intake chronically, etc. -uncontrolled celiac disease can cause Fe Def as well -IV Venofer 300mg x 1 given; 2nd dose was ordered for the patient but she declined it -B12 level wnl -did not check folate level as she was in IV folate the entire stay -recommended 30 days of additional folic acid 1mg daily post-discharge -fecal occult blood test was negative -seen by [facility] -- EGD deferred during this hospitalization -hemoglobin at discharge was 8.5 -counseled her that ideally she receive additional IV iron as outpatient -she should also follow-up with [facility] as outpatient for consideration of surveillance EGD #abdominal pain - -resolved by time of discharge -PUD vs gastritis vs bloating/discomfort from ascites vs combination of factors suspected as the cause -she was given IV PPI during the stay and converted to PO PPI twice daily at discharge -she should continue protonix 40mg BID at home -[facility] consult completed -- EGD not pursued during the stay, but she should f/u with them (or [facility]) as outpatient for ongoing Rx of her cirrhosis, EGD, etc. -during the stay she had no clinical or radiographic evidence of: -cholecystitis -pancreatitis -patient did NOT have diarrhea thus it was unlikely she had enterocolitis as suggested on CT a/p at time of admission -SBP (cell counts and culture from ascites fluid negative for such) #decompensated cirrhosis - -moderate ascites on exam and by way of CT abd/pelvis at time of admission -s/p IR paracentesis x 2 while here -2 liters removed on first tap; 1 liter removed on a 2nd tap -cell counts from first paracentesis NOT c/w SBP -culture from ascites fluid was negative -fluid studies c/w portal HTN / transudative -cytologies negative for malignant cells -started lasix 20mg daily -started aldactone - increased to 50mg/day while here -sent home on lasix/aldactone at discharge -ultimately will need ratios of 40mg/100mg (lasix/aldactone) but defer to outpatient providers -nonselective BB would be ideal (inderal, nadalol, etc) but deferred while here -unfortunately she continues to drink etoh at home and voices she likely will continue to drink etoh -recommended closer f/u with [facility] or [facility] for the cirrhosis -counseled on importance of 2 gram salt restricted diet, med compliance, alcohol cessation -counseled that she likely will continue to experience decompensated cirrhosis with ongoing alcohol abuse -LFTs were mild-moderately high during the stay with elevated INR (see below) #etoh dependence - -gabapentin taper employed during the stay -AWSS protocol was followed; AWSS scores were low -- never had evidence of withdrawal -received MVI, thiamine & folic acid supplementation while here -recommended 30 day course of folic acid, and ongoing thiamine supplementation -counseled to quit, offered assistance with such -- she declined any specific intervention #tobacco dependence - -counseled to quit -nicoderm patch 21mg/day employed while here #hyponatremia - -checked TSH - wnl -hypervolemic hyponatremia from her decompensated cirrhosis suspected as the cause of the low sodium -lowest Na level was 125 at time of admission -Na level stable at 129/130 in the 48 hours leading up to discharge -needs to continue lasix/aldactone for volume control -repeat BMP within a week of discharge advised to ensure stability #hypokalemia, hypomagnesemia, hypocalcemia - -all repleted during the hospitalization -cont mag supplementation in the form of Slow-Mag 64mg BID -due to increasing amounts of aldactone advised to hold her potassium supplement initially at discharge and have a f/u BMP shortly after discharge to determine if we need to add back a K supplement #elevated INR - -peak INR was 2 -gave vit K 5mg IV x 2 doses while here with improved INR to 1.7 -probably combo of vitamin K def as well as liver disease contributing to her coagulopathy -fortunately no bleeding issues while here #? liver mass - -on CT abd/pelvis the following was seen: * 3.4 cm possible lobulated mass which demonstrates increased enhancement compared to the surrounding liver anterior right hepatic lobe -patient & her were told about this finding -AFP returned normal at 5.7 -[id number] needs f/u with [facility] or [facility]; potentially may need dedicated CT a/p liver protocol vs MRI abdomen for more information Notes For Next Care Provider needs close GI follow-up for advanced cirrhosis -- previously followed by [facility] needs CBC, BMP, and mag within a week of discharge for stability Medication Changes From Visit 1. lasix 20mg qam 2. aldactone 50mg qam 3. levaquin 750mg daily x 2 days 4. slow-mag 64mg BID 5. protonix 40mg BID Admission HPI Per Admitting Provider 60yo female with known cirrhosis 2nd to etoh dependence, tobacco dependence, prior esophageal varices, celiac disease, and admission in May 2025 for GI bleeding presents from home with 3-4 days of worsening abdominal pain & swelling (she describes it as "inflammation"), inability to eat for about 2 days, feeling cold - but no fevers, cough/congestion for about 2-3 weeks, and nausea/vomiting that started about 1am this morning. About 2 weeks ago she had a right-sided ear infection and was placed on antibiotic drops; she also was given keflex for sinusitis but only took about 5 days of such. She felt she was having side effects from the medicine and called her PCP who advised her to stop it. With respect to her abdominal pain it is mostly in the upper portion of the abdomen. Feels like a "band" (she points to the upper portions of the RUQ and LUQ). Patient continues to drink alcohol - typically vodka. The amount varies from day to day - sometimes 2-3 ounces vodka/day, sometimes double that amount or more. She did drink at least 2-3 ounces of vodka last night. In addition to the above she was having low back pain about 2 weeks ago. This is a chronic issue that periodically flares up. Pain is now improved. Denies any history of delirium tremens, but has had mild etoh withdrawal symptoms (shakes, sweats) in the past. In the ER today she was hypoxic and NC O2 was applied with resolution of the hypoxia. Discharge Exam gen - NAD, no signs of etoh withdrawal, awake, alert HENT - MMM eyes - scleral icterus - mild neck - no JVD CV - RRR, s1 s2, no murmur lungs - rales b/l bases - improved; RLL>LLL; no wheeze, no increased work of breathing abd - mildly distended but improved from previous exams; NT; BS+; paracentesis sites not leaking, clean ext - no edema, pulses 2+ b/l feet neuro - no asterixis or tremors psych - a/o x 3, tearful at times skin - right arm - swelling improved from prior IV infiltration; NO palpable cords in any location Discharge Plan Discharge Items Patient Disposition: Home - Self-Care Reason For Visit: PNEUMONIA, HYPONATREMIA, HYPOKALENIA, ASCITES Discharge Diagnosis: 1. pneumonia - resolving 2. hyponatremia (low sodium) - stable, discharge sodium level 129 3. hypokalemia (low potassium) - resolved 4. hypomagnesemia (low magnesium) - resolved 5. cirrhosis of the liver with resulting ascites (fluid in the abdomen) 6. suspected gastritis 7. possible liver mass - follow-up with your family doctor and your gastroenterology provider for this 8. anemia - due to iron deficiency and other factors 9. hypocalcemia (low calcium) - improved Activity: As commented below Activity Comment: gradually increase activities as tolerated Non-emergency contact: Primary Care Provider and Systems Technician Call non-emergency contact if: you have any medication questions, your symptoms worsen and you have a fever Follow-up/Referrals: Shae Gutierrez CRNP [Nurse Practitioner] - (please see Ms Matt or any [facility] the [facility] 2 [facility] Misael Vail MD [Primary Care Provider] - (see your family doctor this week if possible ) Patricia Luis PA [Physician Director Immunology] - 09/01/25 9:00 am Diet: Gluten Free and Low Sodium (2gm) Addtl Attending Provider Instructions: Ms Melton, You were hospitalized due to a variety of issues including pneumonia, abdominal pain, abdominal swelling, low sodium, low potassium, low magnesium, and low calcium. All electrolyte issues were addressed & supplemented. Pneumonia was treated with IV antibiotics. You had a paracentesis procedure on two occasions to remove fluid build-up ("ascites" - see handout) from the abdominal cavity. 3 liters of fluid were removed over those 2 paracentesis procedures. In addition, you have chronic anemia and it appears that you have iron d eficiency contributing to the anemia. You received 1 dose of IV iron while here. Your hemoglobin at discharge was 8.5. Your abdominal pain may have been from gastritis which is when the stomach gets irritated from alcohol use. You likely had some discomfort as well from the ascites itself. We did not find infection in the ascites fluid. Fortunately the pain got better with acid belt sander medicine & removing the ascites fluid. Recommendations - 1. antibiotics for pneumonia - -levofloxacin 750mg daily x 2 days starting 08/28/25 -most common side effect - diarrhea -rare side effect - tendonitis of the achilles tendon (the tendon on the back of the heel) or even rupture of that tendon 2. diuretics to keep fluid from building up in the abdomen, lungs and legs from the cirrhosis - -furosemide 20mg every morning -spironolactone 50mg every morning 3. electrolyte supplements - -magnesium chloride twice daily (this is a new type of magnesium vs the previous one you took) -start the magnesium tomorrow morning -HOLD your potassium supplement at this time 4. low-salt diet --> limit salt to no more than 2000mg of salt in 24 hours. See handout. This helps prevent fluid build-up in the abdomen and other locations. 5. talk to your outpatient doctors about getting another IV iron infusion. 6. take pantoprazole acid belt sander 40mg twice daily every day. Follow-up - see separate section Return to [facility] if - -you have fever over 100 degrees -you have worsening shortness of breath -you have worsening abdominal pain -you have worsening/severe fluid build-up in the abdomen -you develop severe diarrhea (3 or more liquid stools in 24 hours) -any other concerns It was our pleasure to care for you! -Mehdi Vidales Pending Studies at Discharge: Yes Studies:: AFP level Stand-Alone Forms: My [facility], Smoking Cessation Medications and DC Order Prescriptions: New furosemide 20 mg Tablet 20 mg PO QAM Qty: 30 1RF magnesium chloride [Mag 64] 64 mg Tablet,Delayed Release (Dr/Ec) 64 mg PO BID Qty: 60 1RF spironolactone [Aldactone] 50 mg tablet 50 mg PO QAM Qty: 30 1RF Continued folic acid 1 mg Tablet 1 mg PO QAM Qty: 30 0RF Patient Comments: Pt is currently holding this medication, doesn't plan to start back until 06/16/25. States that they stop taking them from time to time just to reset their body. niacin 50 mg Tablet 0 mg PO DAILY Patient Comments: OTC unknown dose vitamin D3-vitamin K2 0 mg PO DAILY Patient Comments: OTC unknown dose thiamine HCl (vitamin B1) 100 mg tablet 100 mg PO .Q OTHER DAY Patient Comments: Pt is currently holding this medication, doesn't plan to start back until . States that they stop taking them from time to time just to reset their body. pantoprazole 40 mg Tablet,Delayed Release (Dr/Ec) 40 mg PO BID Qty: 60 1RF Held potassium chloride 20 mEq tablet,ER particles/crystals 40 meq PO .EVERY COUPLE DAYS Hold Instructions: hold for now Patient Comments: Pt is currently holding this medication, doesn't plan to start back until 06/16/25. States that they stop taking them from time to time just to reset their body. Discontinued pyridoxine (vitamin B6) 0 mg PO QAM Patient Comments: OTC unknown dose magnesium oxide 400 mg (241.3 mg magnesium) tablet 400 mg PO .EVERY COUPLE DAYS Patient Comments: Pt is currently holding this medication, doesn't plan to start back until 06/16/25. States that they stop taking them from time to time just to reset their body. Discharge Orders: Discharge Order (Routine); Ordered 08/27/25 Ordered By: Mehdi Rivero/Other Patient Handouts: ED Ascites, ED Low-Salt Diet Admission Data Admit Date/Time: 08/23/25 10:24 Attending Provider: Mehdi Vidales Admit Provider: Mehdi Vidales Primary Care Provider: Misael Vail Other Providers: Jad Wilder Jr; Refugio Bro; Umer Wade I Other Interventions: Discharge Summary Assessment (RN) Last Done: 08/27/25 14:10 Hospital Stay Data Consultations Consult Gastroenterology Procedures Performed Paracentesis x 2 2-step ambulatory O2 test - PASSED; no home O2 needed Diagnostic Imagining Performed Abdomen/Pelvis CT 08/23/25 07:[address] WITH IV CONTRAST CT DOSE: 1104.73 mGy.cm HISTORY: mid abd pain TECHNIQUE: Multiaxial CT images of the abdomen and pelvis were performed following the IV administration of 90 cc of Optiray, A dose lowering technique was utilized adhering to the principles of ALARA. COMPARISON STUDY: 02/03/2025 FINDINGS: ABDOMEN: There is progressive severe diffuse nodularity at the liver consistent with cirrhosis. The liver is diffusely heterogeneous. There is a 3.4 cm possible lobulated mass which demonstrates increased enhancement compared to the surrounding liver anterior right hepatic lobe series 3 image 94. Stable minimal splenomegaly. There is a moderate amount of diffuse ascites. There are a few stable mildly enlarged vincenzo hepatis lymph nodes, common in the setting of cirrhosis. Pancreas and adrenal glands are unremarkable. Kidneys show no hydronephrosis or calculi. There are scattered atherosclerotic calcifications. No abdominal aortic aneurysm. Pelvis: Uterus and adnexa are grossly unremarkable. Urinary bladder is nondistended. There is mild retained stool. There is mild diffuse wall thickening at the small bowel and colon most prominent at the cecum which could represent enterocolitis or edema from the ascites. No other bowel inflammation or obstruction seen. Osseous structures: There is lumbar degenerative disc disease. No acute osseous findings. IMPRESSION: 1. Progressive severe cirrhosis with moderate ascites. 2. There is a small masslike area of increased enhancement anterior right hepatic lobe. Differential diagnosis includes hepatocellular carcinoma and heterogeneity due to the cirrhosis. 3. Diffuse enterocolitis versus bowel edema due to the ascites. No bowel obstruction. 4. No other acute findings seen. Otherwise as described. ACT 112: Positive. There are findings on this exam that require communication between the performing entity and the patient following Patient Test Result Information Act ([place] Act 112) guidelines. The above report was generated using voice recognition software. It may contain grammatical, syntax or spelling errors. Electronically signed by: Refugio Bro M.D. 08/23/2025 8:57 AM Chest X-Ray 08/23/25 09:01 XR chest 1V portable CLINICAL HISTORY: hypoxic COMPARISON STUDY: 06/13/2025 FINDINGS: Inspiration is shallow. There is mild cardiomegaly with mild pulmonary vascular congestion. There is interval stranding opacity in the lung bases. No pleural effusion or pneumothorax. IMPRESSION: 1. Mild CHF. 2. Mild atelectasis versus early pneumonia in the lung bases. ACT 112: Negative or not required by law. Electronically signed by: Refugio Bro M.D. 08/23/2025 9:26 AM Paracentesis Ultrasound 08/23/25 10:06 ULTRASOUND-GUIDED PARACENTESIS CLINICAL HISTORY: Ascites PROCEDURE: Procedure and risks were explained. Informed consent was obtained. A final timeout was completed. The abdomen was prepped and draped in sterile fashion. 1% lidocaine was utilized for skin anesthesia. Utilizing ultrasound guidance, a 5 [place] safety centesis catheter was advanced into the left lower quadrant pocket of ascites. Ultrasound images were obtained. 2 L of yellow-colored ascites fluid was removed, with 1 L sent to the lab. The catheter was removed and Band-Aid applied. The patient tolerated the procedure well. Vital signs will be monitored postprocedure. IMPRESSION: Ultrasound-guided paracentesis as above. Performed, dictated, and signed by Flako Jack PA-C; to be co-signed by Dr. Refugio Bro. Electronically signed by: Refugio Bro M.D. 08/23/2025 3:53 PM Paracentesis Ultrasound 08/25/25 12:58 ULTRASOUND-GUIDED PARACENTESIS CLINICAL HISTORY: Ascites PROCEDURE: Procedure and risks were explained. Informed consent was obtained. A final timeout was completed. The abdomen was prepped and draped in sterile fashion. 1% lidocaine was utilized for skin anesthesia. Utilizing ultrasound guidance, a 5 [place] safety centesis catheter was advanced into the left lower quadrant pocket of ascites. Ultrasound images were obtained. 1.1 L of yellow-colored ascites fluid was removed and discarded. The catheter was removed and Band-Aid applied. The patient tolerated the procedure well. Vital signs will be monitored postprocedure. IMPRESSION: Ultrasound-guided paracentesis as above. Performed, dictated, and signed by Flako Jack PA-C; to be co-signed by Dr. Refugio Bro. Electronically signed by: Refuigo Bro M.D. 08/25/2025 4:02 PM Pending Results Patient Have Any Pending Studies at Discharge: Yes Discharge Instructions Given to Patient (Per Discharging Provider) Ms Melton, You were hospitalized due to a variety of issues including pneumonia, abdominal pain, abdominal swelling, low sodium, low potassium, low magnesium, and low calcium. All electrolyte issues were addressed & supplemented. Pneumonia was treated with IV antibiotics. You had a paracentesis procedure on two occasions to remove fluid build-up ("ascites" - see handout) from the abdominal cavity. 3 liters of fluid were removed over those 2 paracentesis procedures. In addition, you have chronic anemia and it appears that you have iron deficiency contributing to the anemia. You received 1 dose of IV iron while here. Your hemoglobin at discharge was 8.5. Your abdominal pain may have been from gastritis which is when the stomach gets irritated from alcohol use. You likely had some discomfort as well from the ascites itself. We did not find infection in the ascites fluid. Fortunately the pain got better with acid belt sander medicine & removing the ascites fluid. Recommendations - 1. antibiotics for pneumonia - -levofloxacin 750mg daily x 2 days starting 08/28/25 -most common side effect - diarrhea -rare side effect - tendonitis of the achilles tendon (the tendon on the back of the heel) or even rupture of that tendon 2. diuretics to keep fluid from building up in the abdomen, lungs and legs from the cirrhosis - -furosemide 20mg every morning -spironolactone 50mg every morning 3. electrolyte supplements - -magnesium chloride twice daily (this is a new type of magnesium vs the previous one you took) -start the magnesium tomorrow morning -HOLD your potassium supplement at this time 4. low-salt diet --> limit salt to no more than 2000mg of salt in 24 hours. See handout. This helps prevent fluid build-up in the abdomen and other locations. 5. talk to your outpatient doctors about getting another IV iron infusion. 6. take pantoprazole acid belt sander 40mg twice daily every day. Follow-up - see separate section Return to [facility] if - -you have fever over 100 degrees -you have worsening shortness of breath -you have worsening abdominal pain -you have worsening/severe fluid build-up in the abdomen -you develop severe diarrhea (3 or more liquid stools in 24 hours) -any other concerns It was our pleasure to care for you! -Mehdi Vidales Total Time Total Time Spent Total Time Spent (In Minutes): 50 Total Time Includes: Examination of the Patient, Discharge Planning and Medication Reconciliation Coding Level of Care Code 66417 INP/OBS DISCH >30 MIN Diagnoses Decompensated cirrhosis K72.90; K74.60 Pneumonia J18.9 Anemia D64.9 Abdominal pain R10.9 Hypomagnesemia E83.42 Hypokalemia E87.6 Hyponatremia E87.1 Hypocalcemia E83.51 Celiac disease K90.0 Tobacco use Z72.0 Alcoholism, chronic F10.20 Abdominal ascites R18.8 Ascites type: other type
== END 2025-08-27 15:14 | disposition home or self-care (01) | DRG 432 ==
LOC: ED 07:11 → EDINP 10:24 → 2S 11:54

== ENCOUNTER 2025-10-15 09:35 | Observation (INO) ==
[2025-10-15 10:30] LABS: Hematocrit (blood only) 35.4 % (37.0-47.0); Hemoglobin 12.3 g/dL (12.0-16.0); Immature Granulocytes # (auto) 0.02 K/uL (0.01-0.20); Immature Granulocytes % (auto) 0.4 %; Mean Corpuscular Hemoglobin 29.5 pg (25.0-34.0); Mean Corpuscular Volume 84.9 fL (80.0-100.0); Platelet Count 175 K/uL (130-400); RDW Standard Deviation 58.6 fL (36.4-46.3); Red Blood Count 4.17 M/uL (4.20-5.40); White Blood Count 4.91 K/ul (4.8-10.8)
--- NOTE | 2025-10-15 10:37 | XRay Report ---
EXAM: Radiograph of the Chest 1 View INDICATION: Shortness of breath with swelling TECHNIQUE: Frontal view of the chest. COMPARISON: 08/23/2025 and 02/23/2025 FINDINGS: Lungs and pleural spaces: Stable basilar scarring with superimposed carotid vasculature in the right base. No confluent consolidation. No pleural effusion or pneumothorax. Heart: Shape and configuration within normal limits allowing for technique. Mediastinum: Normal contour. Bones/joints: No fracture, erosion or dislocation. Soft tissues: No abnormality noted. No radiopaque foreign body noted. Upper abdomen: No abnormality noted. IMPRESSION: Shallow inspiration with chronic basilar changes. ACT 112: N/A Electronically signed by Rosalien Negrete 10-15-2025 10:34 AM
[2025-10-15 10:47] LABS: Alanine Aminotransferase 15.0 U/L (7-52); Albumin Globulin Ratio 0.7 (0.9-2); Albumin Level 2.9 gm/dl (3.4-5.0); Alkaline Phosphatase 187.0 U/L (34-104); Anion Gap 8.0 (3-11); Bilirubin,Total 2.4 mg/dl (0.2-1.0); Blood Urea Nitrogen 4.0 mg/dl (6-23); Calcium 8.6 mg/dl (8.6-10.3); Carbon Dioxide 26.0 mmol/L (21-32); Chloride 97.0 mmol/L (98-107); Creatinine Clr Calc Pharmacy 101.0 ml/min; Globulin 4.4 gm/dl (2.5-4.0); Glucose 106.0 mg/dl (70-99(Fasting)); Lipase 28.0 U/L (11-82); Magnesium 1.4 mg/dl (1.7-2.4); Potassium 2.9 mmol/L (3.5-5.1); Sodium 131.0 mmol/L (136-145); Total Protein 7.3 gm/dl (6.0-8.3)
[2025-10-15 10:57] LABS: INR 1.6 (0.9-1.1); Partial Thromboplastin Time 32 Seconds (21-31); Prothrombin Time 16.3 Seconds (9.0-12.0)
--- NOTE | 2025-10-15 10:58 | Emergency Department Note ---
Impression & Plan Decompensated cirrhosis, Abdominal ascites, Hypokalemia, Hypomagnesemia, Alcohol use disorder ED Provider Note Provider: Naif Segovia MD CHIEF COMPLAINT: Abdominal swelling HISTORY OF PRESENT ILLNESS: Patient is a 60-year-old female unfortunate history of liver cirrhosis related to alcohol use as well as prior esophageal varices and GI bleed presenting here today reporting over the past several weeks she has had significant creased abdominal swelling. Denies leg swelling. Denies trauma. Reports some mild discomfort to the abdomen but no chest pain. Feels a bit short of breath and having some difficulty bending over and walking due to the distention of her abdomen. States she did not have too much swelling until her 30-day supply of her diuretics ran out. States it did make her feel somewhat dehydrated. She has been trying to maintain good hydration. Particularly over the last week or so that she started to swell she states she has been drinking daily. Did have a Pepsi this morning as well. Denies feeling confused. States she is scheduled to follow-up with liver doctor in the end of November but did see her kidney doctor and primary doctor after discharge from the beginning of August. She had abdominal drainage while in the hospital here in the beginning of August. No additional abdominal paracentesis/drainage since then. PAST MEDICAL HISTORY: As noted above MEDICATIONS: Reviewed home medications. Patient states that she ran out of her diuretics several weeks ago. SOCIAL HISTORY: , continues alcohol use PHYSICAL EXAM: GENERAL: alert and oriented in no acute distress on stretcher Head: normocephalic and atraumatic EYES: No injection, discharge or icterus. EOMI. NECK: Trachea midline. ENT: Mucous membranes pink and moist. LUNGS: Airway patent. No retractions. Breath sounds clear HEART: Regular rate and rhythm. No chest wall tenderness ABDOMEN: Moderately distended but not tense or peritoneal. SKIN: Acyanotic, warm, dry, without rashes EXTREMITIES: Without swelling, tenderness or deformity NEUROLOGICAL: No focal deficits. No aphasia. No facial droop or slurred speech. Normal strength and tone in the extremities. Sensation to gross touch normal. Ambulatory. EK bpm. Normal sinus rhythm. No PVC or PAC. No acute ST segment elevation or depression with QTc 488. CONTINUOUS CARDIAC MONITORING: was ordered and showed a heart rate of 80s to 90s bpm in normal sinus rhythm Patient's laboratory studies and imaging reviewed. Differential includes alcoholic cirrhosis, appendicitis, infections, diverticulitis, UTI, obstruction, mesenteric ischemia, aortic pathology, inflammatory bowel disease, renal colic, PUD, pancreatitis, biliary pathology, hernia, volvulus, constipation, as well as other pathologies. IMPRESSION/MEDICAL DECISION MAKING: Patient unfortunately with alcoholic cirrhosis and continues to drink. Ran out of her diuretics although it sounds as if she had some side effects from them. Began to swell and has worsened some and now seems significantly distended in the abdomen. No fevers. I do not believe this represents SBP. Blood work here without significant anemia or leukocytosis. Persistent hyponatremia of 131 today with some hypokalemia of 2.9 and magnesium 1.4. IV magnesium repletion was ordered. Bilirubin today of 2.4 slightly elevated but not severely so compared to priors. Procalcitonin not elevated. No evidence of pancreatitis. Denies any GI bleed symptoms to me. 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 No significant effusion noted on x-ray per radiology report my review of the films and not hypoxic here. Do feel she need reestablished on diuretics and her electrolytes need optimized. Does not seem to be in renal failure or in respiratory distress at this time. Give a small amount of morphine here for her discomfort. Discussed with her recommendation that we bring her in for this to occur. Again do not feel this represents SBP or that she requires a diagnostic tap at this time. DIAGNOSIS: Decompensated alcoholic liver cirrhosis, abdominal ascites, hypokalemia, hypomagnesemia DISPOSITION: Hospitalist will evaluate Patient was agreeable with this plan. Past Med/Surg History Problem List (Updated 10/15/25 @ 14:35 by Naif Segovia M.D.) Alcohol use disorder (Acute) Hypomagnesemia (Acute) Hypokalemia (Acute) Anemia Acute hyponatremia (Acute) Hypocalcemia Pneumonia Abdominal pain Decompensated cirrhosis (Acute) Melena Cirrhosis of liver (Acute) Acute hyponatremia (Acute) Abdominal ascites (Acute) Alcohol use (Acute) Encounter for pre-operative examination Hypotension Acute upper gastrointestinal bleeding (Acute) Hyperbilirubinemia (Acute) Abnormal urinalysis (Acute) Lactic acidosis (Acute) Transaminitis (Acute) Jaundice (Acute) Medical History Hematemesis Portal hypertensive gastropathy Syncope Alcoholic hepatitis Hyperbilirubinemia Prolonged QT interval Alcoholism, chronic Hypomagnesemia Hypokalemia Acute upper gastrointestinal bleeding Hyponatremia Celiac disease Tobacco use Surgical History H/O eye surgery Family History Father , in his 80s Prostate cancer Mother Alcohol abuse Other Stroke Social History Smoking Status: Current every day smoker Tobacco Type: Cigarettes Cigarettes Per Day: 1 ppd; Second Hand Exposure: No; Do You Dip or Chew Tobacco: No; Tobacco Cessation Education Requested by Patient: No Hx Alcohol Use: Yes Alcohol type: hard liquor Alcohol type Comment: h/o heavy vodka intake, at least 2-3 ounces/day Hx Substance Use: No Preferred Language: Japanese Communication Ability: Effective 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 Beliefs That Will Affect Care: Cultural Cultural Beliefs: does not want anything with aborted cells marital status: Single Current Living Situation: Spouse Current Living Situation Comment: [place] - current occupational status: unemployed current occupation: previously worked for [employer] How many Children do You have: 1 Feels Safe at Home: Yes Safety Concerns: Feels Safe At This Time Assistive Devices: Glasses Allergies Allergies Allergy/AdvReac Type Severity Reaction Status Date / Time gluten Allergy Unknown Hives Verified 06/13/25 09:46 prednisone AdvReac Intermediate Nausea,vomiting Verified 06/13/25 09:46 and diarrhea Home Meds Home Medications Medication Instructions Recorded Confirmed potassium chloride 20 mEq 40 meq PO .EVERY COUPLE DAYS 02/23/25 10/15/25 tablet,extended release(part/cryst) thiamine HCl (vitamin B1) 100 mg 100 mg PO DAILY 08/23/25 10/15/25 tablet furosemide 20 mg tablet 0 mg PO QAM 10/15/25 10/15/25 pyridoxine (vitamin B6) 100 mg 100 mg PO DAILY 10/15/25 10/15/25 tablet spironolactone 50 mg tablet 0 mg PO QAM 10/15/25 10/15/25 (Aldactone) Previous Rx's Medication Instructions Recorded magnesium chloride 64 mg 64 mg PO BID #60 tabs 08/27/25 (magnesium chloride) tablet,delayed release (Mag 64) pantoprazole 40 mg tablet,delayed 40 mg PO BID #60 tabs 08/27/25 release Results & Data (ED) Vital Signs Vital Signs - 24 hr 10/15/25 09:40 10/15/25 09:45 10/15/25 10:04 Temperature 36.8 C Temperature Source Temporal Artery Scan Pulse Rate 68 98 H 84 Pulse Rate [Apical] Respiratory Rate 18 16 Respiratory Effort / Characteristics Non-Labored Spontaneous Respiratory Depth Normal Respiratory Pattern Regular Blood Pressure 115/78 Blood Pressure [Left Arm] Blood Pressure Mean 90 Blood Pressure Mean [Left Arm] Pulse Oximetry 97 94 Oxygen Delivery Method Room Air Room Air Sepsis Recent Fever Within 48 Hours No Sepsis New/Unexplained Change in Mental Status N/A Sepsis Action Taken by Nursing No Action Required 10/15/25 10:10 10/15/25 12:15 Temperature Temperature Source Pulse Rate 89 Pulse Rate [Apical] 84 Respiratory Rate 16 Respiratory Effort / Characteristics Non-Labored Spontaneous Respiratory Depth Normal Respiratory Pattern Regular Blood Pressure Blood Pressure [Left Arm] 136/78 Blood Pressure Mean Blood Pressure Mean [Left Arm] 97 Pulse Oximetry 94 Oxygen Delivery Method Room Air Sepsis Recent Fever Within 48 Hours Sepsis New/Unexplained Change in Mental Status Sepsis Action Taken by Nursing Laboratory Data 10/15/25 10:04 10/15/25 10:04 Lab Results 10/15/25 Range/Units 10:04 WBC 4.91 (4.8-10.8) K/ul RBC 4.17 L (4.20-5.40) M/uL Hgb 12.3 (12.0-16.0) g/dL Hct 35.4 L (37.0-47.0) % MCV 84.9 (80.0-100.0) fL MCH 29.5 (25.0-34.0) pg MCHC 34.7 (32.0-36.0) g/dL RDW Std Deviation 58.6 H (36.4-46.3) fL RDW Coeff of Car 19.0 H (11.5-14.5) % Plt Count 175 (130-400) K/uL MPV 10.5 (9.4-12.4) fL Immature Gran % (Auto) 0.4 % Neut % (Auto) 60.3 % Lymph % (Auto) 26.9 % Bladen % (Auto) 11.2 % Eos % (Auto) 0.6 % Baso % (Auto) 0.6 % Neut # (Auto) 2.96 (1.40-6.50) K/uL Lymph # (Auto) 1.32 (1.20-3.40) K/uL Bladen # (Auto) 0.55 (0.11-0.59) K/uL Eos # (Auto) 0.03 (0.00-0.50) K/uL Baso # (Auto) 0.03 (0.00-0.20) K/uL Immature Gran # (Auto) 0.02 (0.01-0.20) K/uL PT 16.3 H (9.0-12.0) Seconds INR 1.6 H (0.9-1.1) APTT 32 H (21-31) Seconds PTT Ratio 1.2 Sodium 131 L (136-145) mmol/L Potassium 2.9 L (3.5-5.1) mmol/L Chloride 97 L (98-107) mmol/L Carbon Dioxide 26 (21-32) mmol/L Anion Gap 8 (3-11) BUN 4 L (6-23) mg/dl Creatinine 0.59 L (0.6-1.2) mg/dl Est Cr Clr Drug Dosing 101.0 ml/min eGFR 102.47 BUN/Creatinine Ratio 6.8 L (10-20) Glucose 106 H (70-99(Fasting)) mg/dl Calcium 8.6 (8.6-10.3) mg/dl Magnesium 1.4 L (1.7-2.4) mg/dl Total Bilirubin 2.4 H (0.2-1.0) mg/dl AST 47 H (13-39) U/L ALT 15 (7-52) U/L Alkaline Phosphatase 187 H (34-104) U/L Troponin I High Sens 3.0 (0-14) pg/ml Total Protein 7.3 (6.0-8.3) gm/dl Albumin 2.9 L (3.4-5.0) gm/dl Globulin 4.4 H (2.5-4.0) gm/dl Albumin/Globulin Ratio 0.7 L (0.9-2) Lipase 28 (11-82) U/L Procalcitonin 0.06 (0-0.5) ng/ml Administered Medications Discontinued Medications Magnesium Sulfate/Dextrose (Magnesium Sulfate / D5w) 1 gm in 100 mls @ 200 mls/hr IV Q30M ZITA Stop: 10/15/25 11:59 Last Infusion: 10/15/25 14:32 Dose: Infused Documented By: Admin: 10/15/25 11:37 Dose: 200 mls/hr Documented By: Infusion: 10/15/25 11:37 Dose: Infused Documented By: Admin: 10/15/25 11:08 Dose: 200 mls/hr Documented By: MUREIL Morphine Sulfate (Morphine Sulfate 2 Mg/Ml Carp) 2 mg IV NOW STA Stop: 10/15/25 10:55 Last Admin: 10/15/25 11:05 Dose: 2 mg Documented By: MURIEL Potassium Chloride (Potassium Chloride Crtab 20 Meq Tabcr) 40 meq PO NOW STA Stop: 10/15/25 11:19 Last Admin: 10/15/25 11:27 Dose: 40 meq Documented By: MURIEL Imaging Data Radiologist's Impression: Chest X-Ray 10/15/25 10:04 EXAM: Radiograph of the Chest 1 View INDICATION: Shortness of breath with swelling TECHNIQUE: Frontal view of the chest. COMPARISON: 08/23/2025 and 02/23/2025 FINDINGS: Lungs and pleural spaces: Stable basilar scarring with superimposed carotid vasculature in the right base. No confluent consolidation. No pleural effusion or pneumothorax. Heart: Shape and configuration within normal limits allowing for technique. Mediastinum: Normal contour. Bones/joints: No fracture, erosion or dislocation. Soft tissues: No abnormality noted. No radiopaque foreign body noted. Upper abdomen: No abnormality noted. IMPRESSION: Shallow inspiration with chronic basilar changes. ACT 112: N/A Electronically signed by Rosaline Negrete 10-15-2025 10:34 AM Discharge Plan Visit Data Chief Complaint: Abdominal Pain Stated Complaint: ABD SWELLING ED Provider: Naif Segovia Discharge Problem: Decompensated cirrhosis, Abdominal ascites, Hypokalemia, Hypomagnesemia, Alcohol use disorder Patient Disposition: Admitted As Inpatient Condition: Fair Discharge Instructions Interventions: ED Discharge Assessment Last Done: 10/15/25 13:27
[2025-10-15] MEDS: MoRPHine SULFATE 2 MG/ML CARP IV STA (11:05)
[2025-10-15] MEDS: MAGNESIUM SULFATE / D5W 1 GM/100 ML BAG IV SCH (11:08)
[2025-10-15] MEDS: POTASSIUM CHLORIDE CRTAB 20 MEQ TABCR PO STA ×2 (11:27→14:48)
--- NOTE | 2025-10-15 11:48 | History & Physical Report ---
Date of Service October 15, 2025 Assessment & Plan (1) Decompensated cirrhosis: (2) Abdominal ascites: (3) Alcohol use disorder: (4) Hypomagnesemia: (5) Hypokalemia: Plan This is a 60 y/o female with alcoholic cirrhosis with ascites, esophageal varices, portal hypertensive gastropathy, HTN, celiac disease, GERD with esophagitis, osteopenia and tobacco use disorder who presents to ED with progressive abdominal swelling. Pt reports running out of her diuretics about 2- 3 weeks ago and has noted progressive abdominal distention since being off the diuretics. Work-up in the ED revealed low sodium at 131, which seems to be her baseline. Potassium low at 2.9, magnesium low at 1.4. INR elevated at 1.6, which is consistent with known cirrhosis. Chest x-ray without acute changes. Pt referred for admission due to acute on chronic ascites, likely requiring repeat therapeutic paracentesis. #Acute on chronic ascites #Decompensated alcoholic cirrhosis - Admit to PCU - IR US guided paracentesis ordered for tomorrow - IV furosemide 20 mg x 1 today, resume prior diuretic regimen of furosemide 40 mg daily, spironolactone 50 mg daily tomorrow and adjust as needed - Low-sodium diet, fluid restriction 1500 ml - Will need outpatient hepatology follow-up - currently scheduled in January; was referred for transplant evaluation previously but declined to schedule - Labs in the AM including CBC, BMP, LFTs, INR - Consult GI for additional recommendations #Hypokalemia #Hypomagnesemia - IV mag sulfate ordered by ED, continue oral supplements - Oral potassium repletion started in the ED, will give additional 40 mEq KCl now and repeat this evening - Labs in the AM including BMP, Mag #GERD - Continue PPI BID #History of alcohol use - Reports only drinking sporadically at present - last drink was this morning - Monitor for signs of withdrawal but if not drinking daily, less likely - Thiamine, folic acid daily #Tobacco use disorder - Nicotine patch - Smoking cessation recommended Pt seen and reviewed with collaborating physician, Dr. Ha. Plan of care discussed and as outlined above. Code status: conditional code - would not want intubation/mechanical ventilation but states would want a trial of other ACLS interventions including CPR, defibrillation DVT prophylaxis: SCDs I spent a total of 82 minutes coordinating, documenting, and providing care for this patient excluding time spent in the performance of separately billed services or time spent by another provider/QHP. Macario Novoa PA-C History of Present Illness Chief Complaint: worsening swelling Primary Care Provider: Misael Vail MD This is a 60 y/o female with alcoholic cirrhosis with ascites, esophageal varices, portal hypertensive gastropathy, HTN, celiac disease, GERD with esophagitis, osteopenia and tobacco use disorder who presents to ED with progressive abdominal swelling. Pt has a history of recurrent ascites, was admitted to [facility] 08/23-08/27/25 for similar complaints. She was evaluated by GI during that admission and underwent IR guided paracentesis with removal of 2L of fluid. She was discharged on furosemide 40 mg and spironolactone 25 mg daily but ran out of diuretics 2-3 weeks ago and has noted progressive abdominal distention since then. Now having associated abdominal discomfort and difficulty taking a deep breath due to severity of the distention. Denies associated N/V/D. Has noted early satiety due to the distention but overall still eating the same amount. Not drinking EtOH regularly but did have a shot of alcohol this morning with half a Pepsi before coming to the ED. Denies fevers, chills, chest pain, palpitations, HERNANDEZ, dizziness, visual changes, melena or hematochezia. Last BM was last night, small stool. Decreased urine output but attributes to the significant swelling. Allergies Allergy/AdvReac Type Severity Reaction Status Date / Time gluten Allergy Unknown Hives Verified 06/13/25 09:46 prednisone AdvReac Intermediate Nausea,vomiting Verified 06/13/25 09:46 and diarrhea Home Medications Medication Instructions Recorded Confirmed Type potassium chloride 20 mEq 40 meq PO .EVERY COUPLE DAYS 02/23/25 10/15/25 History tablet,extended release(part/cryst) thiamine HCl (vitamin B1) 100 mg 100 mg PO DAILY 08/23/25 10/15/25 History tablet magnesium chloride 64 mg 64 mg PO BID #60 tabs 08/27/25 10/15/25 Rx (magnesium chloride) tablet,delayed release (Mag 64) pantoprazole 40 mg tablet,delayed 40 mg PO BID #60 tabs 08/27/25 10/15/25 Rx release furosemide 20 mg tablet 0 mg PO QAM 10/15/25 10/15/25 History pyridoxine (vitamin B6) 100 mg 100 mg PO DAILY 10/15/25 10/15/25 History tablet spironolactone 50 mg tablet 0 mg PO QAM 10/15/25 10/15/25 History (Aldactone) Past Med/Surg History Problem List (Updated 10/15/25 @ 16:49 by Genia Novoa PA-C) Alcohol use disorder (Acute) Hypomagnesemia (Acute) Hypokalemia (Acute) Anemia Acute hyponatremia (Acute) Hypocalcemia Pneumonia Abdominal pain Decompensated cirrhosis (Acute) Melena Cirrhosis of liver (Acute) Acute hyponatremia (Acute) Abdominal ascites (Acute) Alcohol use (Acute) Encounter for pre-operative examination Hypotension Acute upper gastrointestinal bleeding (Acute) Hyperbilirubinemia (Acute) Abnormal urinalysis (Acute) Lactic acidosis (Acute) Transaminitis (Acute) Jaundice (Acute) Medical History Hematemesis Portal hypertensive gastropathy Syncope Alcoholic hepatitis Hyperbilirubinemia Prolonged QT interval Alcoholism, chronic Hypomagnesemia Hypokalemia Acute upper gastrointestinal bleeding Hyponatremia Celiac disease Tobacco use Surgical History H/O eye surgery Family History Father , in his 80s Prostate cancer Mother Alcohol abuse Other Stroke Social History Smoking Status: Current every day smoker Tobacco Type: Cigarettes Cigarettes Per Day: 1 ppd; Second Hand Exposure: No; Do You Dip or Chew Tobacco: No; Tobacco Cessation Education Requested by Patient: No Hx Alcohol Use: Yes Alcohol type: hard liquor Alcohol type Comment: h/o heavy vodka intake, at least 2-3 ounces/day Hx Substance Use: No Preferred Language: Frisian Communication Ability: Effective Director Of Athletics Required: No Beliefs That Will Affect Care: Cultural Cultural Beliefs: does not want anything with aborted cells marital status: Single Current Living Situation: Spouse Current Living Situation Comment: Tien - current occupational status: unemployed current occupation: previously worked for [employer] How many Children do You have: 1 Feels Safe at Home: Yes Safety Concerns: Feels Safe At This Time Assistive Devices: Glasses Review of Systems Review of Systems: All systems reviewed & are unremarkable except as noted in Subjective Physical Exam Physical Exam: General: awake, alert, NAD HEENT: trace icterus, moist oral mucosa Neck: supple, trachea midline Heart: RRR Lungs: CTA bilaterally Abdomen: distended with flank dullness to percussion, mild diffuse tenderness, +BS Extremities: no pedal edema, distal pulses intact and equal Neurologic: Ox3, no confusion or dysarthria, moving all extremities, no gross focal deficits Results & Data Results & Data Vital Signs (Past 12 Hours) Vital Signs Temp Pulse Resp BP Pulse Ox O2 Del Method 10/15/25 10:10 89 10/15/25 10:04 84 16 94 Room Air 10/15/25 09:45 36.8 C 98 H 18 115/78 97 Room Air 10/15/25 09:40 68 Laboratory Results Lab Results 10/15/25 Range/Units 10:04 WBC 4.91 (4.8-10.8) K/ul RBC 4.17 L (4.20-5.40) M/uL Hgb 12.3 (12.0-16.0) g/dL Hct 35.4 L (37.0-47.0) % MCV 84.9 (80.0-100.0) fL MCH 29.5 (25.0-34.0) pg MCHC 34.7 (32.0-36.0) g/dL RDW Std Deviation 58.6 H (36.4-46.3) fL RDW Coeff of Car 19.0 H (11.5-14.5) % Plt Count 175 (130-400) K/uL MPV 10.5 (9.4-12.4) fL Immature Gran % (Auto) 0.4 % Neut % (Auto) 60.3 % Lymph % (Auto) 26.9 % [place] % (Auto) 11.2 % Eos % (Auto) 0.6 % Baso % (Auto) 0.6 % Neut # (Auto) 2.96 (1.40-6.50) K/uL Lymph # (Auto) 1.32 (1.20-3.40) K/uL [place] # (Auto) 0.55 (0.11-0.59) K/uL Eos # (Auto) 0.03 (0.00-0.50) K/uL Baso # (Auto) 0.03 (0.00-0.20) K/uL Immature Gran # (Auto) 0.02 (0.01-0.20) K/uL PT 16.3 H (9.0-12.0) Seconds INR 1.6 H (0.9-1.1) APTT 32 H (21-31) Seconds PTT Ratio 1.2 Sodium 131 L (136-145) mmol/L Potassium 2.9 L (3.5-5.1) mmol/L Chloride 97 L (98-107) mmol/L Carbon Dioxide 26 (21-32) mmol/L Anion Gap 8 (3-11) BUN 4 L (6-23) mg/dl Creatinine 0.59 L (0.6-1.2) mg/dl Est Cr Clr Drug Dosing 101.0 ml/min eGFR 102.47 BUN/Creatinine Ratio 6.8 L (10-20) Glucose 106 H (70-99(Fasting)) mg/dl Calcium 8.6 (8.6-10.3) mg/dl Magnesium 1.4 L (1.7-2.4) mg/dl Total Bilirubin 2.4 H (0.2-1.0) mg/dl AST 47 H (13-39) U/L ALT 15 (7-52) U/L Alkaline Phosphatase 187 H (34-104) U/L Troponin I High Sens 3.0 (0-14) pg/ml Total Protein 7.3 (6.0-8.3) gm/dl Albumin 2.9 L (3.4-5.0) gm/dl Globulin 4.4 H (2.5-4.0) gm/dl Albumin/Globulin Ratio 0.7 L (0.9-2) Lipase 28 (11-82) U/L Procalcitonin 0.06 (0-0.5) ng/ml Diagnostic Findings Chest X-Ray 10/15/25 10:04 EXAM: Radiograph of the Chest 1 View INDICATION: Shortness of breath with swelling TECHNIQUE: Frontal view of the chest. COMPARISON: 08/23/2025 and 02/23/2025 FINDINGS: Lungs and pleural spaces: Stable basilar scarring with superimposed carotid vasculature in the right base. No confluent consolidation. No pleural effusion or pneumothorax. Heart: Shape and configuration within normal limits allowing for technique. Mediastinum: Normal contour. Bones/joints: No fracture, erosion or dislocation. Soft tissues: No abnormality noted. No radiopaque foreign body noted. Upper abdomen: No abnormality noted. IMPRESSION: Shallow inspiration with chronic basilar changes. ACT 112: N/A Electronically signed by Rosaline Negrete 10-15-2025 10:34 AM Medications Administered Magnesium Sulfate/Dextrose (Magnesium Sulfate / D5w) 1 gm in 100 mls @ 200 mls/hr IV Q30M ZITA Stop: 10/15/25 11:59 Last Admin: 10/15/25 11:37 Dose: 200 mls/hr Documented By: Infusion: 10/15/25 11:37 Dose: Infused Documented By: Admin: 10/15/25 11:08 Dose: 200 mls/hr Documented By: MURIEL Discontinued Medications Morphine Sulfate (Morphine Sulfate 2 Mg/Ml Carp) 2 mg IV NOW STA Stop: 10/15/25 10:55 Last Admin: 10/15/25 11:05 Dose: 2 mg Documented By: MURIEL Potassium Chloride (Potassium Chloride Crtab 20 Meq Tabcr) 40 meq PO NOW STA Stop: 10/15/25 11:19 Last Admin: 10/15/25 11:27 Dose: 40 meq Documented By: MURIEL Supervising Physician Co-Signing Physician Notes Patient is a 60-year-old female with alcoholic cirrhosis/ascites/esophageal varices/portal hypertensive gastropathy, celiac disease and other medical problems presents with history of worsening abdominal distention associated with inability to take deep breath, abdominal discomfort. She admits to ran out of her diuretics 3 to 4 weeks ago. Denies any fever, chills, nausea, vomiting, diarrhea, chest pain, dyspnea. Patient admits to drinking alcohol intermittently. She denies any confusion, hallucinations. Please review HPI for complete details of presentation. I personally reviewed blood work and imaging studies. Noted hypokalemia, hypomagnesemia, chronic thrombocytopenia and INR 1.6. On exam patient is thin, frail, chronically appearing, normocephalic atraumatic, EOMI, normal breath sounds, clear to auscultation, S1- S2, no murmur, no pedal edema, abdomen is firm, distended, generalized mild tenderness, normal bowel sounds, no guarding or rigidity, alert, awake, oriented, grossly no focal deficits. Patient is admitted for management of decompensated alcoholic cirrhosis and ascites. Agree with IV Lasix, fluid restriction, low-sodium diet. Will request IR to do paracentesis tomorrow. Consider to give IV albumin pre and post paracentesis. GI consulted. Replete electrolytes as needed. Lung Splitter to quit alcohol use. I personally interviewed and examined the patient at bedside. I have reviewed the advanced practitioner's documentation on the date of service referred in note and agree with plan. Patient's care is coordinated with Genia Guzman. Please refer to the documentation above for details of patient's presentation and for discussion of other issues. I spent a total [id number] coordinating, documenting, and providing care for this patient excluding time spent in the performance of separately billed services or time spent by another provider/QHP. (2) Abdominal ascites Ascites type: due to alcoholic cirrhosis Qualified Code(s): K70.31 - Alcoholic cirrhosis of liver with ascites; K72.90 - Hepatic failure, unspecified without coma
[2025-10-15] MEDS: NICOTINE 21 MG/24 HR TDSY TD SCH (14:48)
[2025-10-15] MEDS: FUROSEMIDE INJ 20 MG/2 ML VIAL IV ONE (14:49)
[2025-10-15 15:31] LABS: Appearance Urine Clear (Clear); Bacteria Urine Automated None Seen (None Seen); Cast Urine Automated 0-2 /lpf (0-2); Glucose Urine UA Negative (Negative); RBC Urine Automated 0-2 /hpf (0-2); WBC Urine Automated 0-5 /hpf (0-5)
[2025-10-15] MEDS: MAGNESIUM CHLORIDE W/CALCIUM 64MG DELAYED REL TAB PO SCH (20:59)
[2025-10-15] MEDS: POTASSIUM CHLORIDE CRTAB 20 MEQ TABCR PO ONE (21:04)
[2025-10-16 03:44] VITALS: RESP 18
[2025-10-16 07:02] LABS: Alanine Aminotransferase 13.0 U/L (7-52); Albumin Level 2.8 gm/dl (3.4-5.0); Alkaline Phosphatase 160.0 U/L (34-104); Anion Gap 6.0 (3-11); Bilirubin,Total 2.5 mg/dl (0.2-1.0); Blood Urea Nitrogen 4.0 mg/dl (6-23); Calcium 8.5 mg/dl (8.6-10.3); Carbon Dioxide 27.0 mmol/L (21-32); Chloride 101.0 mmol/L (98-107); Creatinine Clr Calc Pharmacy 104.5 ml/min; Glucose 91.0 mg/dl (70-99(Fasting)); Magnesium 1.6 mg/dl (1.7-2.4); Potassium 4.2 mmol/L (3.5-5.1); Sodium 134.0 mmol/L (136-145); Total Protein 6.6 gm/dl (6.0-8.3)
[2025-10-16 07:14] LABS: INR 1.6 (0.9-1.1); Prothrombin Time 16.5 Seconds (9.0-12.0)
[2025-10-16] MEDS: SPIRONOLACTONE 25 MG TAB PO SCH (08:43)
[2025-10-16] MEDS: THIAMINE HCL 100 MG TAB PO SCH (08:43)
[2025-10-16] MEDS: FOLIC ACID 1 MG TAB PO SCH (08:43)
[2025-10-16] MEDS: PYRIDOXINE HCL 50 MG TAB PO SCH (08:44)
[2025-10-16] MEDS: FUROSEMIDE 40 MG TAB PO SCH (08:44)
--- NOTE | 2025-10-16 09:51 | Electrocardiogram Report ---
Test Reason : Blood Pressure : */* mmHG Vent. Rate : 87 BPM Atrial Rate : 87 BPM P-R Int : 156 ms QRS Dur : 78 ms QT Int : 406 ms P-R-T Axes : 26 36 53 degrees QTcB Int : 488 ms Normal sinus rhythm Low voltage QRS Possible Inferior infarct (cited on or before 13-Jun-2025) Abnormal ECG When compared with ECG of 13-Jun-2025 08:49, Questionable change in initial forces of Inferior leads T wave inversion no longer evident in Inferior leads Confirmed by Reza Melvin ([id number]) on 10/16/2025 9:51:44 AM Referred By: REFERRED SELF Confirmed By: Reza Melvin
--- NOTE | 2025-10-16 09:59 | Gastrointestinal Consultation ---
Date of Consultation October 16, 2025 Assessment & Plan (1) Alcohol use disorder: 60 year old female with history of hypertension, alcoholic liver disease w/ MELD 17 last ETOH use was yesterday (10/15/25), celiac disease, hyperthyroidism as per records, ongoing tobacco/alcohol abuse admitted through the ED with ascites - GI asked to evaluate for decompensated cirrhosis Her ascites reaccumulation is likely related to her known liver disease, ongoing ETOH abuse and discontinuation of her outpatient diuretics. She is scheduled for a paracentesis today. Please send fluid for cell count, culture, protein and albumin. Please administer IV albumin 25g before and after paracentesis. Agree w/ resuming outpatient dosing of diuretics (Lasix 40 mg and Aldactone 50 mg but she may be able to increase Aldactone to 100 mg once daily). Encouraged ETOH cessation. ETOH withdrawal protocol. She needs outpatient follow up with hepatology adn she tells me she has this scheduled in November. CTAP in August w/ area of increased enhancement anterior right hepatic lobe, AFP was non- elevated at that time. She will need HCC screening to be arranged through her established liver care team. I spent a total of 60 minutes on the date of service in review of patient's record, and previously obtained information in person and appropriate medical visit, discussion and education of plan, with patient and/or caregiver, placing orders for tests/referral/procedures as medically necessary and documentation of pertinent clinical information in patient's medical records for their visit today. (2) Decompensated cirrhosis: Supervising Physician Co-Signing Physician Notes I saw and examined this patient with our nurse practitioner and agree with her assessment and plan. Patient admitted with worsening ascites have been off diuretics. She has been following a low-sodium diet. Feels better post large- volume paracentesis. Would resume diuretics 2 g sodium diet. She should ultimately follow-up with her manager building as an outpatient. Call if any further issues. History of Present Illness Reason for Consultation: decompensated cirrhosis Requesting Physician: Niraj Harley DO Attending Physician: Niraj Harley DO History of Present Illness 60 year old female with history of hypertension, alcoholic liver disease, esophageal varices, celiac disease, hyperthyroidism as per records, ongoing tobacco/alcohol abuse admitted through the ED with ascites - GI asked to evaluate for decompensated cirrhosis. Pt was seen and evaluated, chart reviewed. She suggests she ran out of her prescription diuretics about a month ago and her ascites started to reaccumulate fairly quickly. She did not contact he care team for refills. She suggests ongoing ETOH use and last drink was prior to ED arrival 10/15. She denies any nausea/vomiting but endorses pain/distention/bloating which she relates to the ascites. No report of black or bloody stools. She follows with Dr. Gallego of Hepatology at [facility]. ABD US 2024: Hepatosplenomegaly. Coarse liver texture. Stable. Small free fluid in the abdomen. New finding. Further assessment and clinical evaluation are advised. EGD 05/2025: Obliterated esophageal varices. Prior EVBL. - Portal hypertensive gastropathy. - Normal examined duodenum. - No specimens collected. EGD 01/2025: Grade II varices were found in the lower third of the esophagus. They were medium in size. Two bands were successfully placed with complete eradication, resulting in deflation of varices. There was no bleeding during the procedure. - Severe portal hypertensive gastropathy was found in the entire examined stomach. With air insufflation and just touching the stomach there was slight oozing. She has moderately severe portal hypertensive gastropathy from chronic alcohol abuse and that is also likely contributing to her anemia and bleeding - The examined duodenum was normal. EGD 05/2024: Scar in the lower third of the esophagus. No residual varices seen. - Portal hypertensive gastropathy. - Normal duodenal bulb and second portion of the duodenum. - No specimens collected. Allergies Allergy/AdvReac Type Severity Reaction Status Date / Time gluten Allergy Unknown Hives Verified 06/13/25 09:46 prednisone AdvReac Intermediate Nausea,vomiting Verified 06/13/25 09:46 and diarrhea Home Medications Medication Instructions Recorded Confirmed Type potassium chloride 20 mEq 40 meq PO .EVERY COUPLE DAYS 02/23/25 10/15/25 History tablet,extended release(part/cryst) thiamine HCl (vitamin B1) 100 mg 100 mg PO DAILY 08/23/25 10/15/25 History tablet magnesium chloride 64 mg 64 mg PO BID #60 tabs 08/27/25 10/15/25 Rx (magnesium chloride) tablet,delayed release (Mag 64) pantoprazole 40 mg tablet,delayed 40 mg PO BID #60 tabs 08/27/25 10/15/25 Rx release pyridoxine (vitamin B6) 100 mg 100 mg PO DAILY 10/15/25 10/15/25 History tablet furosemide 40 mg tablet (Lasix) 40 mg PO DAILY #30 tabs 10/16/25 Rx magnesium oxide 400 mg PO BID #60 tabs 10/16/25 Rx spironolactone 100 mg tablet 100 mg PO DAILY #30 tabs 10/16/25 Rx (Aldactone) Patient History Medical History Hematemesis Portal hypertensive gastropathy Syncope Alcoholic hepatitis Hyperbilirubinemia Prolonged QT interval Alcoholism, chronic Hypomagnesemia Hypokalemia Acute upper gastrointestinal bleeding Hyponatremia Celiac disease Tobacco use Surgical History H/O eye surgery Family History Father , in his 80s Prostate cancer Mother Alcohol abuse Other Stroke Social History Smoking Status: Current every day smoker Tobacco Type: Cigarettes Cigarettes Per Day: 1 ppd; Second Hand Exposure: No; Do You Dip or Chew Tobacco: No; Tobacco Cessation Education Requested by Patient: No Hx Alcohol Use: Yes Alcohol type: hard liquor Alcohol type Comment: h/o heavy vodka intake, at least 2-3 ounces/day Hx Substance Use: No Preferred Language: Costa Rican Communication Ability: Effective Director Of Strategic Initiatives Required: No Beliefs That Will Affect Care: Cultural Cultural Beliefs: does not want anything with aborted cells marital status: Single Current Living Situation: Spouse Current Living Situation Comment: Tien - current occupational status: unemployed current occupation: previously worked for [employer] How many Children do You have: 1 Feels Safe at Home: Yes Safety Concerns: Feels Safe At This Time Assistive Devices: None Review of Systems Review of Systems: All other findings negative except as noted in HPI. Physical Exam Constitutional: WD/WN, vitals as above Respiratory: normal respiratory effort Cardiovascular: Rate/Rhythm: regular rate Gastrointestinal (Abdomen): + large volume ascites Skin: no rashes, warm and dry no lower extremity edema Results & Data Vital Signs (Past 12 Hours) Vital Signs Temp Pulse Pulse Resp BP Pulse Ox O2 Del Method 10/16/25 07:37 97.5 F L 83 18 116/71 93 Room Air 10/16/25 03:43 98.4 F 90 18 100/65 93 Room Air 10/15/25 23:29 98.4 F 85 18 107/62 93 Room Air 10/15/25 22:10 84 Laboratory Results 10/16/25 10/15/25 10/15/25 Range/Units 05:53 15:04 10:04 WBC 4.91 (4.8-10.8) K/ul RBC 4.17 L (4.20-5.40) M/uL Hgb 12.3 (12.0-16.0) g/dL Hct 35.4 L (37.0-47.0) % MCV 84.9 (80.0-100.0) fL MCH 29.5 (25.0-34.0) pg MCHC 34.7 (32.0-36.0) g/dL RDW Std Deviation 58.6 H (36.4-46.3) fL RDW Coeff of Car 19.0 H (11.5-14.5) % Plt Count 175 (130-400) K/uL MPV 10.5 (9.4-12.4) fL Immature Gran % (Auto) 0.4 % Neut % (Auto) 60.3 % Lymph % (Auto) 26.9 % [place] % (Auto) 11.2 % Eos % (Auto) 0.6 % Baso % (Auto) 0.6 % Neut # (Auto) 2.96 (1.40-6.50) K/uL Lymph # (Auto) 1.32 (1.20-3.40) K/uL [place] # (Auto) 0.55 (0.11-0.59) K/uL Eos # (Auto) 0.03 (0.00-0.50) K/uL Baso # (Auto) 0.03 (0.00-0.20) K/uL Immature Gran # (Auto) 0.02 (0.01-0.20) K/uL PT 16.5 H 16.3 H (9.0-12.0) Seconds INR 1.6 H 1.6 H (0.9-1.1) APTT 32 H (21-31) Seconds PTT Ratio 1.2 Sodium 134 L 131 L (136-145) mmol/L Potassium 4.2 D 2.9 L (3.5-5.1) mmol/L Chloride 101 97 L (98-107) mmol/L Carbon Dioxide 27 26 (21-32) mmol/L Anion Gap 6 8 (3-11) BUN 4 L 4 L (6-23) mg/dl Creatinine 0.55 L 0.59 L (0.6-1.2) mg/dl Est Cr Clr Drug Dosing 104.5 101.0 ml/min eGFR 104.22 102.47 BUN/Creatinine Ratio 7.3 L 6.8 L (10-20) Glucose 91 106 H (70-99(Fasting)) mg/dl Calcium 8.5 L 8.6 (8.6-10.3) mg/dl Magnesium 1.6 L 1.4 L (1.7-2.4) mg/dl Total Bilirubin 2.5 H 2.4 H (0.2-1.0) mg/dl Direct Bilirubin 1.2 H (0-0.2) mg/dl AST 44 H 47 H (13-39) U/L ALT 13 15 (7-52) U/L Alkaline Phosphatase 160 H 187 H (34-104) U/L Troponin I High Sens 3.0 (0-14) pg/ml Total Protein 6.6 7.3 (6.0-8.3) gm/dl Albumin 2.8 L 2.9 L (3.4-5.0) gm/dl Globulin 4.4 H (2.5-4.0) gm/dl Albumin/Globulin Ratio 0.7 L (0.9-2) Lipase 28 (11-82) U/L Procalcitonin 0.06 (0-0.5) ng/ml Urine Color Dark Yellow Urine Appearance Clear (Clear) Urine pH 6.0 (4.5-7.5) Ur Specific [place] 1.011 (1.000-1.030) Urine Protein Negative (Negative) Urine Glucose (UA) Negative (Negative) Urine Ketones Trace H (Negative) Urine Blood Negative (Negative) Urine Nitrite Negative (Negative) Urine Bilirubin 1+ H (Negative) Urine Urobilinogen Negative (Negative) Ur Leukocyte Esterase Trace H (Negative) Urine WBC (Auto) 0-5 (0-5) /hpf Urine RBC (Auto) 0-2 (0-2) /hpf U Hyaline Cast (Auto) 0-2 (0-2) /lpf U Epithel Cells (Auto) 6-10 H (0-2) /hpf Urine Bacteria (Auto) None Seen (None Seen) Urine Comment PG Care Time/CCT Total # of Minutes Spent Total Time Spent with Patient: Total time spent is greater than 50% in coordination of care (as documented) at patient's floor/unit and/or counseling patient: Coding Level of Care Code 68308 IN/OBS CONSULT LVL 4,60M Diagnoses Alcohol use disorder F10.90 Decompensated cirrhosis K72.90; K74.60
[2025-10-16] MEDS: REMOVE NICODERM PATCH SCH (10:47)
[2025-10-16 11:24] VITALS: TEMP 98.1
[2025-10-16 14:01] LABS: Hematocrit (blood only) 33.4 % (37.0-47.0); Hemoglobin 11.3 g/dL (12.0-16.0); Immature Granulocytes # (auto) 0.01 K/uL (0.01-0.20); Immature Granulocytes % (auto) 0.2 %; Mean Corpuscular Hemoglobin 29.3 pg (25.0-34.0); Mean Corpuscular Volume 86.5 fL (80.0-100.0); Platelet Count 174 K/uL (130-400); RDW Standard Deviation 62.2 fL (36.4-46.3); Red Blood Count 3.86 M/uL (4.20-5.40); White Blood Count 5.38 K/ul (4.8-10.8)
--- NOTE | 2025-10-16 15:01 | Ultrasound Report ---
ULTRASOUND-GUIDED PARACENTESIS CLINICAL HISTORY: Ascites PROCEDURE: Procedure and risks were explained. Informed consent was obtained. A final timeout was com pleted. The abdomen was prepped and draped in sterile fashion. 1% lidocaine was utilized for skin ane sthesia. Utilizing ultrasound guidance, a 5 Romansh safety centesis catheter was advanced into the left lower q uadrant pocket of ascites. Ultrasound images were obtained. 4 L of yellow-colored ascites fluid was r emoved. The catheter was removed and Band-Aid applied. The patient tolerated the procedure well. Teresa l signs will be monitored postprocedure. IMPRESSION: Ultrasound-guided paracentesis as above. Performed, dictated, and signed by Flako Jack PA-C; to be co-signed by Dr. Iker Newton. Electronically signed by: Iker Newton M.D. 10/16/2025 3:31 PM
--- NOTE | 2025-10-16 15:24 | Discharge Summary ---
Discharge Summary Date of Service October 16, 2025 Principal Dx & Hospital Course #1 = Principal Diagnosis (1) Alcoholic cirrhosis of liver with ascites: (2) Hypomagnesemia: (3) Hypokalemia: (4) Alcohol use disorder: Plan Patient 60-year-old female with known alcohol-induced cirrhosis with ascites presents to the emergency room with abdominal distention and swelling. Patient has required paracentesis in the past for significant ascites and was being managed as an outpatient with diuretics. Unfortunately, patient had an run out of her diuretics for the last 2 to 3 weeks. Patient was admitted to the hospital due to symptoms associated with the excessive ascites.GI consultation was obtained. They recommended ongoing diuretic therapy and increasing his Aldactone. Patient underwent therapeutic paracentesis with removal of 4 L. Her postprocedure course was uneventful. She will be discharged home to follow-up with her outpatient providers. She has outpatient hepatology appointment coming up in the next couple months. She is given a prescription and refills to get her to that next appointment of the Aldactone and Lasix. It also may be beneficial to coordinate standing order for paracentesis outpatient with interventional radiology which can be coordinated through her PCP or [facility]. Notes For Next Care Provider Consider coordinating standing order for paracentesis as needed with outpatient IR Consider monitoring electrolytes and renal function in 10 to 14 days Medication Changes From Visit Aldactone 100 mg daily Lasix 40 mg daily Mag oxide Admission HPI Per Admitting Provider This is a 60 y/o female with alcoholic cirrhosis with ascites, esophageal varices, portal hypertensive gastropathy, HTN, celiac disease, GERD with esophagitis, osteopenia and tobacco use disorder who presents to ED with progressive abdominal swelling. Pt has a history of recurrent ascites, was admitted to [facility] 08/23-08/27/25 for similar complaints. She was evaluated by GI during that admission and underwent IR guided paracentesis with removal of 2L of fluid. She was discharged on furosemide 40 mg and spironolactone 25 mg daily but ran out of diuretics 2-3 weeks ago and has noted progressive abdominal distention since then. Now having associated abdominal discomfort and difficulty taking a deep breath due to severity of the distention. Denies associated N/V/D. Has noted early satiety due to the distention but overall still eating the same amount. Not drinking EtOH regularly but did have a shot of alcohol this morning with half a Pepsi before coming to the ED. Denies fevers, chills, chest pain, palpitations, HERNANDEZ, dizziness, visual changes, melena or hematochezia. Last BM was last night, small stool. Decreased urine output but attributes to the significant swelling. Admission Exam Per Admitting Provider See H&P Discharge Exam Constitutional: Alert, nontoxic HEENT: Mucous membranes moist. Lungs: Clear to auscultation, decreased, no wheezes rales or rhonchi CV: S1-S2, regular Abdomen: Post paracentesis abdomen soft, minimal fluid wave, no tenderness, significantly improved when compared to preprocedure exam Extremities: No significant edema Neuro: Minimal ankle edema Psych: Cooperative, normal mood Updated Medication List Medication Instructions Recorded Confirmed Type potassium chloride 20 mEq 40 meq PO .EVERY COUPLE DAYS 02/23/25 10/15/25 History tablet,extended release(part/cryst) thiamine HCl (vitamin B1) 100 mg 100 mg PO DAILY 08/23/25 10/15/25 History tablet magnesium chloride 64 mg 64 mg PO BID #60 tabs 08/27/25 10/15/25 Rx (magnesium chloride) tablet,delayed release (Mag 64) pantoprazole 40 mg tablet,delayed 40 mg PO BID #60 tabs 08/27/25 10/15/25 Rx release furosemide 20 mg tablet 0 mg PO QAM 10/15/25 10/15/25 History pyridoxine (vitamin B6) 100 mg 100 mg PO DAILY 10/15/25 10/15/25 History tablet spironolactone 50 mg tablet 0 mg PO QAM 10/15/25 10/15/25 History (Aldactone) furosemide 40 mg tablet (Lasix) 40 mg PO DAILY #30 tabs 10/16/25 Rx magnesium oxide 400 mg PO BID #60 tabs 10/16/25 Rx spironolactone 100 mg tablet 100 mg PO DAILY #30 tabs 10/16/25 Rx (Aldactone) Hospital Stay Data Consultations 10/15/25 11:42 ED Decision to Admit Stat 10/15/25 16:48 Consult Gastroenterology Routine Diagnostic Imagining Performed 10/16/25 14:00 IR paracentesis abd w/img US Routine Reviewed imaging, laboratory and diagnostic studies. Pertinent findings as below. WBCs 5.3 Hemoglobin Demond 0.3 Platelets of 174 INR 1.6 Sodium 134 Potassium 4.2 Creatinine 0.55 Magnesium 1.6, replaced prior to discharge Total bilirubin 2.5 Direct bilirubin 1.2 AST 44 ALT 13 Alk phos 160 Ultrasound-guided paracentesis: Removal of 4 L yellow-colored ascites Pending Results Patient Have Any Pending Studies at Discharge: Yes Discharge Instructions Given to Patient (Per Discharging Provider) Discussed with your PCP about coordinating outpatient interventional radiology paracentesis Total Time Total Time Spent Total Time Spent (In Minutes): 35
[2025-10-16 15:46] VITALS: BP 111/64; PULSE 104; O2SAT 96
== END 2025-10-16 16:45 | disposition home or self-care (01) | DRG 433 ==
LOC: ED 09:35 → INTOOBSV 12:27 → SUATTDRO 12:27 → 2S 12:27